=== PATIENT | male | born 1960 | race Caucasian/White ===

== ENCOUNTER 2019-01-11 08:39 | Inpatient (IN) ==
--- OUTSIDE RECORDS SUMMARY | 2019-01-11 08:42 | External Medical Summary | Continuity of Care Document ---
:1960 Author Name Jeet Matthews Address Unavailable Unavailable , Care Team Providers Name Role Phone Latonya Matthews Unavailable [email or web address] Unavailable Unavailable Problems Active medical history not documented Allergies and Adverse Reactions Allergy history not documented Medications Medications not documented Procedures Procedures not documented Immunizations Immunizations not documented Plan of Treatment Planned Observations Planned Goals not documented Results No Known Results Results not documented
[2019-01-11] MEDS ORDERED: ONDANSETRON INJ 2 MG/ML 2 ML VIAL IV STA (08:53)
[2019-01-11] MEDS ORDERED: fentaNYL citrate 100 MCG/2 ML VIAL IV PRN (08:53)
[2019-01-11] MEDS ORDERED: SODIUM CHLORIDE 0.9% 500 ML IV SCH (09:00)
[2019-01-11 09:09] LABS: Basophils # (auto) 0.08 K/uL (0-0.2); Basophils % (auto) 1.4 %; Eosinophils # (auto) 0.16 K/uL (0-0.5); Eosinophils % (auto) 2.8 %; Hematocrit (blood only) 46.2 % (42-52); Hemoglobin 16.1 g/dL (14.0-18.0); Immature Granulocytes # (auto) 0.01 K/uL (0.00-0.02); Immature Granulocytes % (auto) 0.2 %; Lymphocytes # (auto) 1.85 K/uL (1.2-3.4); Lymphocytes % (auto) 32.1 %; Mean Corpuscular Hgb Conc 34.8 g/dL (32-36); Mean Corpuscular Volume 95.7 fL (80-100); Mean Platelet Volume 10.7 fL (7.4-10.4); Monocytes # (auto) 0.32 K/uL (0.11-0.59); Monocytes % (auto) 5.6 %; Neutrophils # (auto) 3.34 K/uL (1.4-6.5); Neutrophils % (auto) 57.9 %; Platelet Count 176 K/uL (130-400); RDW Coefficient of Variation 12.9 % (11.5-14.5); RDW Standard Deviation 45.4 fL (36.4-46.3); Red Blood Count 4.83 M/uL (4.7-6.1); White Blood Count 5.76 K/uL (4.8-10.8)
--- NOTE | 2019-01-11 09:16 | Emergency Department Note ---
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 Negative: LOC, abdominal pain); no chest pain The patient is a 58 year old male who presents to the ED with complaints of an episode of a fall that happened prior to arrival. The patient reports he slipped down 5 steps and fell. He notes he has neck pain, back pain, left shoulder pain, and left hip pain. The patient states he did not lose conscious. He denies chest pain or abdominal pain. The patient reports he has history of two stents and tonsillectomy. He notes he uses alcohol, but denies tobacco use. The patient st ates he takes aspirin. Home Medications Home Medications Medication Instructions Recorded Confirmed Type aspirin 325 mg PO QAM 07/20/18 01/11/19 History cholecalciferol (vitamin D3) 1,000 unit PO QAM 07/20/18 01/11/19 History [Vitamin D3] ibuprofen 600 mg PO TID PRN 07/20/18 01/11/19 History metformin 1,000 mg PO BID 07/20/18 01/11/19 History multivitamin 1 tab PO QAM 07/20/18 01/11/19 History omega [id number]-fish oil [Fish Oil] 2 cap PO QAM 07/20/18 01/11/19 History zinc 50 mg PO QAM 07/20/18 01/11/19 History Allergies Allergy/AdvReac Type Severity Reaction Status Date / Time codeine Allergy Intermediate GI Verified 01/11/19 08:59 SYMPTOMS and tachycardia morphine Allergy Intermediate GI SYMPTOMS Verified 01/11/19 08:59 Sulfa (Sulfonamide Allergy Unknown unknown Verified 01/11/19 08:59 Antibiotics) Past Med/Surg History Family History Father Coronary heart disease Hypertension Mother Coronary heart disease Brother Diabetes Other No known problems Social History Preferred Language: Khmer Communication Ability: Effective 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 Beliefs That Will Affect Care: None marital status: Current Living Situation: Spouse current occupational status: employed Other Information That Helps Us Care for You: No Feels Safe at Home: Yes Safety Concerns: Feels Safe At This Time Smoking Status: Former smoker Tobacco Type: cigarettes ; Do You Dip or Chew Tobacco: No ; Smoking End Date: April 2018 ; Second Hand Exposure: No ; Tobacco Cessation Education Requested by Patient: No Hx Alcohol Use: Yes Alcohol type: hard liquor Alcohol type Comment: 3-4 shots 4 days a week Alcohol Intake Frequency: Daily Hx Substance Use: No Review of Systems See HPI for pertinent positives & negatives. and A total of 10 systems reviewed and were otherwise negative Physical Exam Vital Signs Vital Signs - 24 hr 01/11/19 08:41 01/11/19 08:51 01/11/19 09:29 Temperature 37.4 C Temperature Source Oral Sepsis Recent Fever Within 48 Hours No Sepsis Action Taken by Nursing No Action Required Pulse Rate 124 H 126 H 122 H Pulse Rate from SpO2 Sensor Pulse Rhythm Regular Pulse Strength Normal Respiratory Rate 21 20 23 Respiratory Effort / Characteristics Non-Labored Spontaneous Respiratory Depth Normal Respiratory Pattern Regular Blood Pressure 139/104 H 139/104 H Blood Pressure Mean 115 115 Blood Pressure Position Lying Pulse Oximetry 94 Oxygen Delivery Method Room Air 01/11/19 09:30 01/11/19 10:00 01/11/19 10:22 Temperature Temperature Source Sepsis Recent Fever Within 48 Hours Sepsis Action Taken by Nursing Pulse Rate 124 H 123 H 122 H Pulse Rate from SpO2 Sensor Pulse Rhythm Pulse Strength Respiratory Rate 25 H 22 16 Respiratory Effort / Characteristics Respiratory Depth Respiratory Pattern Blood Pressure 127/84 Blood Pressure Mean 98 Blood Pressure Position Pulse Oximetry Oxygen Delivery Method 01/11/19 10:44 01/11/19 11:00 01/11/19 11:30 Temperature Temperature Source Sepsis Recent Fever Within 48 Hours Sepsis Action Taken by Nursing Pulse Rate 124 H 123 H 123 H Pulse Rate from SpO2 Sensor 123 H 123 H Pulse Rhythm Pulse Strength Respiratory Rate 24 7 L 17 Respiratory Effort / Characteristics Respiratory Depth Respiratory Pattern Blood Pressure 128/100 140/95 Blood Pressure Mean 109 110 Blood Pressure Position Pulse Oximetry 94 92 Oxygen Delivery Method 01/11/19 11:48 01/11/19 11:50 01/11/19 11:53 Temperature Temperature Source Sepsis Recent Fever Within 48 Hours Sepsis Action Taken by Nursing Pulse Rate 123 H 122 H 121 H Pulse Rate from SpO2 Sensor 123 H 123 H 123 H Pulse Rhythm Pulse Strength Respiratory Rate 25 H 15 13 Respiratory Effort / Characteristics Respiratory Depth Respiratory Pattern Blood Pressure 144/107 H 142/93 H 111/73 Blood Pressure Mean 119 109 85 Blood Pressure Position Pulse Oximetry 93 91 91 Oxygen Delivery Method 01/11/19 11:55 01/11/19 11:58 01/11/19 12:00 Temperature Temperature Source Sepsis Recent Fever Within 48 Hours Sepsis Action Taken by Nursing Pulse Rate 123 H 126 H 124 H Pulse Rate from SpO2 Sensor 126 H 128 H 124 H Pulse Rhythm Pulse Strength Respiratory Rate 22 19 15 Respiratory Effort / Characteristics Respiratory Depth Respiratory Pattern Blood Pressure 123/95 151/98 H 122/73 Blood Pressure Mean 104 115 89 Blood Pressure Position Pulse Oximetry 93 95 94 Oxygen Delivery Method 01/11/19 12:03 01/11/19 12:05 01/11/19 12:08 Temperature Temperature Source Sepsis Recent Fever Within 48 Hours Sepsis Action Taken by Nursing Pulse Rate 123 H 124 H 125 H Pulse Rate from SpO2 Sensor 125 H 124 H 125 H Pulse Rhythm Pulse Strength Respiratory Rate 12 16 13 Respiratory Effort / Characteristics Respiratory Depth Respiratory Pattern Blood Pressure 132/95 152/99 H 135/97 Blood Pressure Mean 107 116 109 Blood Pressure Position Pulse Oximetry 97 92 90 Oxygen Delivery Method 01/11/19 12:10 01/11/19 12:15 01/11/19 12:20 Temperature Temperature Source Sepsis Recent Fever Within 48 Hours Sepsis Action Taken by Nursing Pulse Rate 124 H 122 H 126 H Pulse Rate from SpO2 Sensor 125 H 124 H 128 H Pulse Rhythm Pulse Strength Respiratory Rate 13 13 21 Respiratory Effort / Characteristics Respiratory Depth Respiratory Pattern Blood Pressure 128/96 151/89 H 134/97 Blood Pressure Mean 106 109 109 Blood Pressure Position Pulse Oximetry 89 L 94 93 Oxygen Delivery Method 01/11/19 12:25 01/11/19 12:30 01/11/19 12:35 Temperature Temperature Source Sepsis Recent Fever Within 48 Hours Sepsis Action Taken by Nursing Pulse Rate 124 H 125 H 123 H Pulse Rate from SpO2 Sensor 125 H 127 H 124 H Pulse Rhythm Pulse Strength Respiratory Rate 9 L 12 13 Respiratory Effort / Characteristics Respiratory Depth Respiratory Pattern Blood Pressure 129/88 129/87 130/87 Blood Pressure Mean 101 101 101 Blood Pressure Position Pulse Oximetry 92 92 92 Oxygen Delivery Method 01/11/19 12:40 01/11/19 12:45 01/11/19 12:50 Temperature Temperature Source Sepsis Recent Fever Within 48 Hours Sepsis Action Taken by Nursing Pulse Rate 123 H 123 H 124 H Pulse Rate from SpO2 Sensor 125 H 123 H 124 H Pulse Rhythm Pulse Strength Respiratory Rate 14 25 H 18 Respiratory Effort / Characteristics Respiratory Depth Respiratory Pattern Blood Pressure 145/103 H 142/105 H 139/99 Blood Pressure Mean 117 117 112 Blood Pressure Position Pulse Oximetry 94 94 92 Oxygen Delivery Method 01/11/19 12:55 01/11/19 12:56 01/11/19 13:00 Temperature Temperature Source Sepsis Recent Fever Within 48 Hours Sepsis Action Taken by Nursing Pulse Rate 124 H 124 H 124 H Pulse Rate from SpO2 Sensor 123 H 124 H 124 H Pulse Rhythm Pulse Strength Respiratory Rate 21 12 12 Respiratory Effort / Characteristics Respiratory Depth Respiratory Pattern Blood Pressure 134/92 135/93 135/93 Blood Pressure Mean 106 107 107 Blood Pressure Position Pulse Oximetry 93 94 94 Oxygen Delivery Method 01/11/19 13:05 01/11/19 13:10 01/11/19 13:15 Temperature Temperature Source Sepsis Recent Fever Within 48 Hours Sepsis Action Taken by Nursing Pulse Rate 124 H 124 H 124 H Pulse Rate from SpO2 Sensor 125 H 121 H 124 H Pulse Rhythm Pulse Strength Respiratory Rate 18 16 16 Respiratory Effort / Characteristics Respiratory Depth Respiratory Pattern Blood Pressure 130/94 123/88 137/98 Blood Pressure Mean 106 99 111 Blood Pressure Position Pulse Oximetry 94 92 91 Oxygen Delivery Method GENERAL: Patient is awake and alert. He is very anxious and appears to be uncomfortable. He is fully immobilized on a cervical collar and spine board. EYES: The conjunctivae are clear. The pupils are round and reactive. EARS, NOSE, MOUTH AND THROAT: The nose is without any evidence of any deformity. Mucous membranes are moist tongue is midline NECK: The neck is immobilized with rigid cervical collar. There is midline tenderness to palpation. Collar will remain in place at this time. RESPIRATORY: Normal respiratory effort is noted there is no evidence of wheezing rhonchi or rales CARDIOVASCULAR: Regular rate and rhythm noted there no murmurs rubs or gallops normal S1 normal S2 GASTROINTESTINAL: The abdomen is soft. Bowel sounds are present in all qu adrants. Abdomen is nontender BACK: Diffuse tenderness is noted over the lower thoracic and upper lumbar spine. There is no step-off. Range of motion is not tested at this time. MUSCULOSKELETAL/EXTREMITIES: Patient has pain with range of motion testing in the left shoulder but there is no deformity. Patient has pain with motion of the left hip but there is no deformity or shortening. SKIN: There is no obvious evidence of any rash. There are no petechiae, pallor or cyanosis noted. NEUROLOGIC: Patient is awake alert and oriented x3 strength is symmetric patellar reflexes are 2+ bilaterally Course 0842: The patient was evaluated in room A10. A complete history and physical exam was performed. 0950: I checked on the patient. 1144: I discussed the patient's case with Dr. Abner Phillip. He will evaluate the patient for further management. 1230: I discussed the izzyn's case with Juliette Almanza. She will evaluate the patient for further management. Consultations Consultation #1: I discussed the patient's case with Dr. Abner Phillip. He will evaluate the patient for further management. Time: 11:44 Consultation #2: I discussed the bay's case with Juliette Almanza. She will evaluate the patient for further management. Time: 12:30 Administered Medications Heparin Sodium/Dextrose (Heparin Sodium/Dextrose) 25,000 units in 500 mls @ 32 mls/hr IV .[id number] [facility]; Protocol Stop: 02/10/19 13:29 Last Admin: 01/12/19 04:00 Dose: 1,600 units/hr, 32 mls/hr Documented by: [id number] Cosigned by: [id number] Titration: 01/12/19 04:00 Dose: 1,600 units/hr, 32 mls/hr Documented by: [id number] Cosigned by: [id number] Titration: 01/12/19 04:00 Dose: 1,600 units/hr, 32 mls/hr Documented by: [id number] Cosigned by: [id number] Titration: 01/12/19 03:25 Dose: 0 units/hr, 0 mls/hr Documented by: [id number] Cosigned by: [id number] Titration: 01/11/19 20:31 Dose: 1,800 units/hr, 36 mls/hr Documented by: [id number] Cosigned by: [id number] Titration: 01/11/19 19:00 Dose: 1,600 units/hr, 32 mls/hr Documented by: [id number] Cosigned by: [id number] Admin: 01/11/19 16:00 Dose: 1,600 units/hr, 32 mls/hr Documented by: [id number] Cosigned by: [id number] Diltiazem HCl 125 mg/ Dextrose 125 mls @ 10 mls/hr IV .[id number] [facility]; Protocol Stop: 02/10/19 13:59 Last Admin: 01/12/19 00:09 Dose: 10 mg/hr, 10 mls/hr Documented by: [id number] Cosigned by: [id number] Titration: 01/12/19 00:09 Dose: 10 mg/hr, 10 mls/hr Documented by: [id number] Cosigned by: [id number] Titration: 01/11/19 21:33 Dose: 10 mg/hr, 10 mls/hr Documented by: [id number] Titration: 01/11/19 19:01 Dose: 15 mg/hr, 15 mls/hr Documented by: [id number] Cosigned by: [id number] Titration: 01/11/19 17:41 Dose: 15 mg/hr, 15 mls/hr Documented by: [id number] Titration: 01/11/19 16:32 Dose: 10 mg/hr, 10 mls/hr Documented by: [id number] Admin: 01/11/19 15:30 Dose: 5 mg/hr, 5 mls/hr Documented by: [id number] Cosigned by: [id number] Insulin Aspart (Novolog Flexpen) 0 units SC ACHS [facility] Stop: 02/10/19 16:29 Last Admin: 01/11/19 20:40 Dose: Not Given Documented by: [id number] Cosigned by: [id number] Admin: 01/11/19 17:21 Dose: 9 units Documented by: [id number] Cosigned by: [id number] Insulin Glargine (Lantus Solostar Pen) 0 units SC BID [facility] Stop: 02/10/19 20:59 Last Admin: 01/11/19 21:33 Dose: 5 units Documented by: [id number] Cosigned by: [id number] Tramadol HCl (Ultram) 50 mg PO Q4H PRN PRN Reason: Moderate Pain Stop: 02/10/19 14:43 Last Admin: 01/12/19 00:09 Dose: 50 mg Documented by: [id number] Admin: 01/11/19 17:25 Dose: 50 mg Documented by: [id number] Discontinued Medications Diltiazem HCl (Cardizem) 20 mg IV NOW STA Stop: 01/11/19 11:44 Last Admin: 01/11/19 11:47 Dose: 20 mg Documented by: [id number] Cosigned by: [id number] Fentanyl Citrate (Fentanyl Citrate) 50 mcg IV ONE PRN PRN Reason: Pain Stop: 01/25/19 08:52 Last Admin: 01/11/19 08:59 Dose: 50 mcg Documented by: [id number] Fentanyl Citrate (Fentanyl Citrate) 50 mcg IV Q15M PRN PRN Reason: Pain Stop: 01/25/19 09:20 Last Admin: 01/11/19 11:10 Dose: 50 mcg Documented by: [id number] Admin: 01/11/19 09:27 Dose: 50 mcg Documented by: [id number] Gabapentin (Neurontin) 1,200 mg PO TODAY@1500 ONE Stop: 01/11/19 15:01 Last Admin: 01/11/19 16:01 Dose: Not Given Documented by: [id number] Gabapentin (Neurontin) 600 mg PO Q6H [facility] Stop: 01/12/19 02:01 Last Admin: 01/12/19 03:21 Dose: 600 mg Documented by: [id number] Admin: 01/11/19 19:42 Dose: 600 mg Documented by: [id number] Heparin Sodium/Dextrose (Heparin Sodium/Dextrose) Confirm Administered Dose 25,000 units IV .STK-MED ONE Stop: 01/11/19 13:12 Last Admin: 01/11/19 13:15 Dose: 1,600 units Documented by: [id number] Cosigned by: [id number] Hydromorphone HCl (Dilaudid) 0.5 mg IV NOW STA Stop: 01/12/19 03:44 Last Admin: 01/12/19 03:58 Dose: 0.5 mg Documented by: [id number] Sodium Chloride (Nss) 500 mls @ 999 mls/hr IV .Q31M [facility] Stop: 01/11/19 09:30 Last Infusion: 01/11/19 10:41 Dose: 0 mls/hr Documented by: [id number] Admin: 01/11/19 09:00 Dose: 999 mls/hr Documented by: [id number] Sodium Chloride (Nss 1000ml) 1,000 mls @ 999 mls/hr IV .Q1H1M ONE Stop: 01/11/19 10:59 Last Infusion: 01/11/19 11:58 Dose: 0 mls/hr Documented by: [id number] Admin: 01/11/19 10:45 Dose: 999 mls/hr Documented by: [id number] Thiamine HCl 200 mg/ Sodium (Chloride) 52 mls @ 208 mls/hr IV NOW STA Stop: 01/11/19 10:13 Last Infusion: 01/11/19 11:05 Dose: 0 mls/hr Documented by: [id number] Admin: 01/11/19 10:45 Dose: 208 mls/hr Documented by: [id number] Heparin Sodium (Porcine) 4,000 (units/ Syringe) 4 mls @ 10 mls/min IV ONE ONE Stop: 01/11/19 20:34 Last Admin: 01/11/19 21:33 Dose: 10 mls/min Documented by: [id number] Cosigned by: [id number] Metoprolol Tartrate (Lopressor) 5 mg IV NOW STA Stop: 01/11/19 12:23 Last Admin: 01/11/19 12:35 Dose: Not Given Documented by: [id number] Metoprolol Tartrate (Lopressor) Confirm Administered Dose 5 mg IV .STK-MED ONE Stop: 01/11/19 12:24 Last Admin: 01/11/19 12:26 Dose: 5 mg Documented by: [id number] Ondansetron HCl (Zofran) 4 mg IV NOW STA Stop: 01/11/19 08:54 Last Admin: 01/11/19 08:59 Dose: 4 mg Documented by: [id number] Medical Decision Making Differential Diagnosis Differential Diagnosis Intracranial injury, cervical spine injury, intrathoracic injury, intra- abdominal injury, musculoskeletal injury. Medical Records Attestation: I reviewed the patient's medical records. Home Medications Current Medication List: was personally reviewed by me Laboratory Data Attestation: I reviewed the patient's lab results. Result diagrams: 01/12/19 02:37 01/12/19 02:37 Lab Results 01/11/19 01/11/19 01/11/19 Range/Units 08:54 08:54 08:54 WBC 5.76 (4.8-10.8) K/uL RBC 4.83 (4.7-6.1) M/uL Hgb 16.1 (14.0-18.0) g/dL Hct 46.2 (42-52) % MCV 95.7 (80-100) fL MCH 33.3 (25-34) pg MCHC 34.8 (32-36) g/dL RDW Std Deviation 45.4 (36.4-46.3) fL RDW Coeff of Mychal 12.9 (11.5-14.5) % Plt Count 176 (130-400) K/uL MPV 10.7 H (7.4-10.4) fL Immature Gran % (Auto) 0.2 % Neut % (Auto) 57.9 % Lymph % (Auto) 32.1 % Bibb % (Auto) 5.6 % Eos % (Auto) 2.8 % Baso % (Auto) 1.4 % Immature Gran # (Auto) 0.01 (0.00-0.02) K/uL Neut # (Auto) 3.34 (1.4-6.5) K/uL Lymph # (Auto) 1.85 (1.2-3.4) K/uL Bibb # (Auto) 0.32 (0.11-0.59) K/uL Eos # (Auto) 0.16 (0-0.5) K/uL Baso # (Auto) 0.08 (0-0.2) K/uL PT 10.8 (9.0-12.0) Seconds INR 1.1 (0.9-1.1) APTT (21.0-31.0) Seconds PTT Ratio Sodium 137 (136-145) mmol/L Potassium 4.1 (3.5-5.1) mmol/L Chloride 104 (98-107) mmol/L Carbon Dioxide 22 (21-32) mmol/L Anion Gap 11.0 (3-11) BUN 8 (7-18) mg/dl Creatinine 1.08 (0.6-1.4) mg/dl Est Cr Clr Drug Dosing 95.7 ml/min Est GFR ( Amer) 87.8 Est GFR (Non-Af Amer) 75.8 BUN/Creatinine Ratio 7.5 L (10-20) Glucose 259 H (70-99) mg/dl Calcium 9.3 (8.5-10.1) mg/dl Magnesium (1.8-2.4) mg/dl Total Bilirubin 0.5 (0.2-1) mg/dl AST 25 (15-37) U/L ALT 39 (12-78) U/L Alkaline Phosphatase 82 (45-117) U/L Troponin I (0-0.045) ng/ml Total Protein 7.2 (6.4-8.2) gm/dl Albumin 3.8 (3.4-5.0) gm/dl Globulin 3.4 (2.5-4.0) gm/dl Albumin/Globulin Ratio 1.1 (0.9-2) TSH (0.300-4.500) uIu/ml Ethyl Alcohol mg/dL (0-3) mg/dl 01/11/19 01/11/19 01/11/19 Range/Units 08:54 10:15 10:15 WBC (4.8-10.8) K/uL RBC (4.7-6.1) M/uL Hgb (14.0-18.0) g/dL Hct (42-52) % MCV (80-100) fL MCH (25-34) pg MCHC (32-36) g/dL RDW Std Deviation (36.4-46.3) fL RDW Coeff of Mychal (11.5-14.5) % Plt Count (130-400) K/uL MPV (7.4-10.4) fL Immature Gran % (Auto) % Neut % (Auto) % Lymph % (Auto) % Bibb % (Auto) % Eos % (Auto) % Baso % (Auto) % Immature Gran # (Auto) (0.00-0.02) K/uL Neut # (Auto) (1.4-6.5) K/uL Lymph # (Auto) (1.2-3.4) K/uL Bibb # (Auto) (0.11-0.59) K/uL Eos # (Auto) (0-0.5) K/uL Baso # (Auto) (0-0.2) K/uL PT 10.9 (9.0-12.0) Seconds INR 1.1 (0.9-1.1) APTT 23.0 (21.0-31.0) Seconds PTT Ratio 0.8 Sodium (136-145) mmol/L Potassium (3.5-5.1) mmol/L Chloride (98-107) mmol/L Carbon Dioxide (21-32) mmol/L Anion Gap (3-11) BUN (7-18) mg/dl Creatinine (0.6-1.4) mg/dl Est Cr Clr Drug Dosing ml/min Est GFR ( Amer) Est GFR (Non-Af Amer) BUN/Creatinine Ratio (10-20) Glucose (70-99) mg/dl Calcium (8.5-10.1) mg/dl Magnesium 2.1 (1.8-2.4) mg/dl Total Bilirubin (0.2-1) mg/dl AST (15-37) U/L ALT (12-78) U/L Alkaline Phosphatase (45-117) U/L Troponin I (0-0.045) ng/ml Total Protein (6.4-8.2) gm/dl Albumin (3.4-5.0) gm/dl Globulin (2.5-4.0) gm/dl Albumin/Globulin Ratio (0.9-2) TSH 2.640 (0.300-4.500) uIu/ml Ethyl Alcohol mg/dL < 3.0 (0-3) mg/dl 01/11/19 Range/Units 10:15 WBC (4.8-10.8) K/uL RBC (4.7-6.1) M/uL Hgb (14.0-18.0) g/dL Hct (42-52) % MCV (80-100) fL MCH (25-34) pg MCHC (32-36) g/dL RDW Std Deviation (36.4-46.3) fL RDW Coeff of Mychal (11.5-14.5) % Plt Count (130-400) K/uL MPV (7.4-10.4) fL Immature Gran % (Auto) % Neut % (Auto) % Lymph % (Auto) % Bibb % (Auto) % Eos % (Auto) % Baso % (Auto) % Immature Gran # (Auto) (0.00-0.02) K/uL Neut # (Auto) (1.4-6.5) K/uL Lymph # (Auto) (1.2-3.4) K/uL Bibb # (Auto) (0.11-0.59) K/uL Eos # (Auto) (0-0.5) K/uL Baso # (Auto) (0-0.2) K/uL PT (9.0-12.0) Seconds INR (0.9-1.1) APTT (21.0-31.0) Seconds PTT Ratio Sodium (136-145) mmol/L Potassium (3.5-5.1) mmol/L Chloride (98-107) mmol/L Carbon Dioxide (21-32) mmol/L Anion Gap (3-11) BUN (7-18) mg/dl Creatinine (0.6-1.4) mg/dl Est Cr Clr Drug Dosing ml/min Est GFR ( Amer) Est GFR (Non-Af Amer) BUN/Creatinine Ratio (10-20) Glucose (70-99) mg/dl Calcium (8.5-10.1) mg/dl Magnesium (1.8-2.4) mg/dl Total Bilirubin (0.2-1) mg/dl AST (15-37) U/L ALT (12-78) U/L Alkaline Phosphatase (45-117) U/L Troponin I < 0.015 (0-0.045) ng/ml Total Protein (6.4-8.2) gm/dl Albumin (3.4-5.0) gm/dl Globulin (2.5-4.0) gm/dl Albumin/Globulin Ratio (0.9-2) TSH (0.300-4.500) uIu/ml Ethyl Alcohol mg/dL (0-3) mg/dl Imaging Data Radiologist's Impression: Radiology results as stated below per my review and the radiologist's interpretation: CT SCAN OF THE CERVICAL SPINE CLINICAL HISTORY: Fall. COMPARISON STUDY: CT angiogram of the neck dated and . TECHNIQUE: CT scan of the cervical spine is performed from the skull base to the upper thoracic spine. Images are reviewed in the axial, sagittal, and coronal planes. IV contrast was not administered for this examination. A dose lowering technique was utilized adhering to the principles of ALARA. CT DOSE: 3903.17 mGy.cm FINDINGS: Skeletal structures: The skeletal structures are osteopenic. There is no evidence of fracture or subluxation involving the cervical spine. Vertebral body height and alignment are maintained. There is straightening of the cervical lordosis. Small anterior osteophytes are seen in the lower cervical region. The odontoid process and lateral masses are intact. The atlantoaxial articulation is preserved noting productive degenerative change. The spinous processes appear intact. Intervertebral discs: There is moderate disc space narrowing seen at C6-C7 and C7-T1. The remaining disc spaces appear maintained. Central canal: Posterior disc osteophyte complexes at C6-C7 and C7-T1 may contribute to mild acquired compromise the central canal. Soft tissues: The prevertebral and paraspinous soft tissues are within normal limits. There is atherosclerotic calcification of the carotid bulbs. Calvarium: The visualized calvarium at the skull base appears intact. Brain parenchyma: Partially visualized brain parenchyma the skull base is within normal limits. Sinuses and mastoids: The visualized paranasal sinuses are clear. The mastoid air cells are well pneumatized. Lung apices: Clear as visualized. IMPRESSION: There is no evidence of fracture or subluxation involving the cervical spine. Electronically signed by: Clifford Brizuela M.D. 01/11/2019 9:[address] head/brain wo con CLINICAL HISTORY: Head pain status post trauma COMPARISON STUDY: 09/04/2018 TECHNIQUE: Axial CT of the brain is performed from the vertex to the skull base. IV contrast was not administered for this examination. A dose lowering technique was utilized adhering to the principles of ALARA. CT DOSE: FINDINGS: No intra or extra-axial mass lesions are visualized. There is no CT evidence of acute cortical infarction. There is no evidence of midline shift. There is no acute hemorrhage. No calvarial fractures are visualized. There is no evidence of pathologic ventricular dilatation. There are persistent inflammatory changes within the left maxillary sinus. IMPRESSION: No acute intracranial findings Electronically signed by: Felix Zurita M.D. 01/11/2019 9:[address] SCAN OF THE LUMBAR SPINE WITHOUT IV CONTRAST CLINICAL HISTORY: Fall. Low back pain. COMPARISON STUDY: No priors. TECHNIQUE: CT scan of the lumbar spine is performed from the lower thoracic spine to the sacrum. Images are reviewed in the axial, sagittal, and coronal planes. IV contrast was not administered for this examination. A dose lowering technique was utilized adhering to the principles of ALARA. FINDINGS: The skeletal structures are osteopenic. There is no evidence of fracture or malalignment involving the lumbar spine. Vertebral body height is maintained throughout the lumbar spine. There are bilateral pars defects at L5 with 6 mm of anterolisthesis at L5-S1. Alignment is otherwise preserved. Small anterior and lateral marginal osteophytes are seen throughout. No lytic or b lastic lesion is seen. The transverse and spinous processes are intact. There is moderate to advanced disc space narrowing seen from L3 -L4 through L5-S1 with associated vacuum phenomenon and degenerative endplate sclerosis. Small posterior disc osteophyte complexes are seen at these levels. There is no evidence of large disc herniation or high-grade central canal stenosis by CT. Mild facet arthropathy is noted in the lower lumbar region. The visualized sacrum and bony pelvis appear intact. The paraspinous soft tissues are normal in appearance. Mild to moderate atherosclerotic calcification is noted in the abdominal aorta. IMPRESSION: 1. There is no evidence of fracture or malalignment involving the lumbar spine. 2. There are bilateral pars defects at L5 with minimal anterolisthesis at L5-S1. Electronically signed by: Clifford Brizuela M.D. 01/11/2019 9:[address] thoracic spine wo con CT DOSE: HISTORY: Trauma. Pain. fall TECHNIQUE: Multiaxial CT images of the thoracic spine were performed and reformatted in the sagittal and coronal plane without the use of contrast. A dose lowering technique was utilized adhering to the principles of ALARA. COMPARISON: None. FINDINGS: No fractures. No subluxation. Paraspinal soft tissues are un remarkable. Moderate generalized degenerative disc changes throughout. Degenerative change vertebral endplates. IMPRESSION: 1. No acute bony abnormality. 2. Moderate degenerative disc change. The above report was generated using voice recognition software. It may contain grammatical, syntax or spelling errors. Electronically signed by: Shaun Valdovinos M.D. 01/11/2019 9:40 AM SINGLE VIEW PELVIS; 2 VIEWS LEFT HIP CLINICAL HISTORY: Fall with left hip pain. FINDINGS: 2 AP views the pelvis with AP and frog-leg views of the left hip are obtained. No prior studies are available for comparison at the time of dictation. The skeletal structures are well mineralized for age. There is no radiographic evidence of acute fracture involving the hips or bony pelvis. Mild degenerative joint space narrowing is seen in the hips. There is mild degenerati ve sclerosis of the sacroiliac joints. Enthesophytes arise from the anterior superior iliac spines. The overlying soft tissues are normal in appearance. Phleboliths are observed in the pelvis. There is no bowel obstruction. Lumbosacral spondylosis is partially visualized. IMPRESSION: No acute bony abnormality is identified. Electronically signed by: Clifford Brizuela M.D. 01/11/2019 10:56 AM XR shoulder LT min 2V routine CLINICAL HISTORY: fall trauma. Pain. COMPARISON: None. DISCUSSION: Moderate generalized degenerative change. No evidence for fracture or dislocation. There is no evidence for soft tissue swelling. IMPRESSION: Moderate generalized degenerative change. No acute process. The above report was generated using voice recognition software. It may contain grammatical, syntax or spelling errors. Electronically signed by: Shaun Valdovinos M.D. 01/11/2019 10:44 AM XR chest 1V not portable CLINICAL HISTORY: Chest pain status post trauma COMPARISON STUDY: 05/19/2019 FINDINGS: The heart is enlarged. There is mild pulmonary venous hypertension. There is no lobar consolidation. There are no pleural effusions. There is no pneumothorax.[ IMPRESSION: Cardiomegaly and mild pulmonary venous hypertension. No evidence of focal pulmonary consolidation. No evidence of pneumothorax Electronically signed by: Felix Zurita M.D. 01/11/2019 10:55 AM ECG Data Attestation: I personally reviewed and interpreted this ECG as follows: Indication: other (trauma ) Rate (beats per minute): 123 Rhythm: atrial flutter Findings: no ST depression, no ST elevation and no ectopy Comparison ECG Date: from (09/04/18) Change: the following changes noted (Atrial flutter ) Additional Comments: Repeat ECG: Atrial flutter at 122 beats per minute. No PVC noted. No change from earlier tracing Blood Pressure Blood Pressure Findings: Normal blood pressure MDM Narrative The patient is a 58-year-old male who presented to the emergency department for an evaluation after fall. The patient was at work when he fell down approximately 5 stairs striking his head and injured his neck. The patient had no focal neurologic deficits. He was treated with IV fluids and IV pain medication in the emergency department. He was also found to be in rapid atrial flutter. This was treated with Cardizem as well as beta-blockers. I discussed his case with the on-call [facility] judge. He was evaluated in the emergency department by the judge. His heart rate improved minimally. I discussed patient's laboratory and radiographic studies with him. Because of the persistence of the atrial flutter as well as the patient not having any current anticoagulation or rate control medication I did discuss his case with the on-call [facility] hospitalist. They have agreed to evaluate the patient in the emergency department for further management disposition. Impression & Plan Atrial flutter with rapid ventricular response, Fall, Head injury, Cervical sprain, Contusion of left hip Critical Care Time Critical Care Time: Yes Total Critical Care Time: 35 I have personally spent greater than 35 minutes of critical care time in the direct management of this patient. This includes bedside care, interpretation of diagnostic studies, and testing, discussion with consultants, patient, and family members, and other required patient management activities. This 35 minutes is in excess of all separately billable procedures. Discharge Plan Visit Data *Final* Discharge Date/Time: 01/11/19 13:47 Chief Complaint: Fall Stated Complaint: back, head, neck pain ED Provider: Mahad Peters Discharge Problem: Atrial flutter with rapid ventricular response, Fall, Head injury, Cervical sprain, Contusion of left hip Patient Disposition: Admitted As Inpatient Discharge Instructions Interventions: ED Discharge Assessment Last Done: 01/11/19 13:47 Discharge Problem: Fall Qualifiers: Encounter type: initial encounter Qualified Code(s): W19.XXXA - Unspecified fall, initial encounter Head injury Qualifiers: Encounter type: initial encounter Qualified Code(s): S09.90XA - Unspecified injury of head, initial encounter Cervical sprain Qualifiers: Encounter type: initial encounter Qualified Code(s): S13.9XXA - Sprain of joints and ligaments of unspecified parts of neck, initial encounter Contusion of left hip Qualifiers: Encounter type: initial encounter Qualified Code(s): S70.02XA - Contusion of left hip, initial encounter The scribe's documentation has been prepared under my direction and personally reviewed by me in its entirety. I confirm that the note above accurately reflects all work, treatment, procedures, and medical decision making performed by me.
[2019-01-11 09:18] LABS: INR 1.1 (0.9-1.1); Prothrombin Time 10.8 Seconds (9.0-12.0)
[2019-01-11] MEDS: fentaNYL citrate 100 MCG/2 ML VIAL IV PRN ×2 (09:27→11:10)
[2019-01-11 09:28] LABS: Albumin Level 3.8 gm/dl (3.4-5.0); BUN Creatinine Ratio 7.5 (10-20); Calcium 9.3 mg/dl (8.5-10.1); Creatinine Clr Calc Pharmacy 95.7 ml/min; Est GFR (African American) 87.8; Est GFR (Non-African American) 75.8; Potassium 4.1 mmol/L (3.5-5.1)
[2019-01-11 09:31] LABS: Albumin Globulin Ratio 1.1 (0.9-2); Bilirubin,Total 0.5 mg/dl (0.2-1); Globulin 3.4 gm/dl (2.5-4.0); Total Protein 7.2 gm/dl (6.4-8.2)
--- NOTE | 2019-01-11 09:37 | CT Scan Report ---
CT head/brain wo con CLINICAL HISTORY: Head pain status post trauma COMPARISON STUDY: 09/04/2018 TECHNIQUE: Axial CT of the brain is performed from the vertex to the skull base. IV contrast was not administered for this examination. A dose lowering technique was utilized adhering to the principles of ALARA. CT DOSE: FINDINGS: No intra or extra-axial mass lesions are visualized. There is no CT evidence of acute cortical infarc tion. There is no evidence of midline shift. There is no acute hemorrhage. No calvarial fractures ar e visualized. There is no evidence of pathologic ventricular dilatation. There are persistent inflammatory changes within the left maxillary sinus. IMPRESSION: No acute intracranial findings Electronically signed by: Felix Zurita M.D. 01/11/2019 9:36 AM
--- NOTE | 2019-01-11 09:37 | CT Scan Report ---
CT SCAN OF THE CERVICAL SPINE CLINICAL HISTORY: Fall. COMPARISON STUDY: CT angiogram of the neck dated 218 and 19. TECHNIQUE: CT scan of the cervical spine is performed from the skull base to the upper thoracic spine . Images are reviewed in the axial, sagittal, and coronal planes. IV contrast was not administered fo r this examination. A dose lowering technique was utilized adhering to the principles of ALARA. CT DOSE: 3903.17 mGy.cm FINDINGS: Skeletal structures: The skeletal structures are osteopenic. There is no evidence of fracture or subl uxation involving the cervical spine. Vertebral body height and alignment are maintained. There is st raightening of the cervical lordosis. Small anterior osteophytes are seen in the lower cervical regio n. The odontoid process and lateral masses are intact. The atlantoaxial articulation is preserved not ing productive degenerative change. The spinous processes appear intact. Intervertebral discs: There is moderate disc space narrowing seen at C6-C7 and C7-T1. The remaining d isc spaces appear maintained. Central canal: Posterior disc osteophyte complexes at C6-C7 and C7-T1 may contribute to mild acquired compromise the central canal. Soft tissues: The prevertebral and paraspinous soft tissues are within normal limits. There is athero sclerotic calcification of the carotid bulbs. Calvarium: The visualized calvarium at the skull base appears intact. Brain parenchyma: Partially visualized brain parenchyma the skull base is within normal limits. Sinuses and mastoids: The visualized paranasal sinuses are clear. The mastoid air cells are well pneu matized. Lung apices: Clear as visualized. IMPRESSION: There is no evidence of fracture or subluxation involving the cervical spine. Electronically signed by: Clifford Brizuela M.D. 01/11/2019 9:36 AM
--- NOTE | 2019-01-11 09:41 | CT Scan Report ---
CT thoracic spine wo con CT DOSE: HISTORY: Trauma. Pain. fall TECHNIQUE: Multiaxial CT images of the thoracic spine were performed and reformatted in the sagittal and coronal plane without the use of contrast. A dose lowering technique was utilized adhering to th e principles of ALARA. COMPARISON: None. FINDINGS: No fractures. No subluxation. Paraspinal soft tissues are unremarkable. Moderate generalize d degenerative disc changes throughout. Degenerative change vertebral endplates. IMPRESSION: 1. No acute bony abnormality. 2. Moderate degenerative disc change. The above report was generated using voice recognition software. It may contain grammatical, syntax or spelling errors. Electronically signed by: Shaun Valdovinos M.D. 01/11/2019 9:40 AM
--- NOTE | 2019-01-11 09:42 | CT Scan Report ---
CT SCAN OF THE LUMBAR SPINE WITHOUT IV CONTRAST CLINICAL HISTORY: Fall. Low back pain. COMPARISON STUDY: No priors. TECHNIQUE: CT scan of the lumbar spine is performed from the lower thoracic spine to the sacrum. Nichol ges are reviewed in the axial, sagittal, and coronal planes. IV contrast was not administered for thi s examination. A dose lowering technique was utilized adhering to the principles of ALARA. FINDINGS: The skeletal structures are osteopenic. There is no evidence of fracture or malalignment in volving the lumbar spine. Vertebral body height is maintained throughout the lumbar spine. There are bilateral pars defects at L5 with 6 mm of anterolisthesis at L5-S1. Alignment is otherwise preserved. Small anterior and lateral marginal osteophytes are seen throughout. No lytic or blastic lesion is s een. The transverse and spinous processes are intact. There is moderate to advanced disc space narrow ing seen from L3 -L4 through L5-S1 with associated vacuum phenomenon and degenerative endplate sclero sis. Small posterior disc osteophyte complexes are seen at these levels. There is no evidence of larg e disc herniation or high-grade central canal stenosis by CT. Mild facet arthropathy is noted in the lower lumbar region. The visualized sacrum and bony pelvis appear intact. The paraspinous soft tissue s are normal in appearance. Mild to moderate atherosclerotic calcification is noted in the abdominal aorta. IMPRESSION: 1. There is no evidence of fracture or malalignment involving the lumbar spine. 2. There are bilateral pars defects at L5 with minimal anterolisthesis at L5-S1. Electronically signed by: Clifford Brizuela M.D. 01/11/2019 9:41 AM
[2019-01-11] MEDS ORDERED: THIAMINE HCL 200 MG in SODIUM CHLORIDE 0.9% 50 ML IV STA (09:59)
[2019-01-11] MEDS ORDERED: SODIUM CHLORIDE 0.9% 1000ML 1,000 ML IV ONE (09:59)
[2019-01-11 10:37] LABS: Magnesium 2.1 mg/dl (1.8-2.4)
--- NOTE | 2019-01-11 10:45 | XRay Report ---
XR shoulder LT min 2V routine CLINICAL HISTORY: fall trauma. Pain. COMPARISON: None. DISCUSSION: Moderate generalized degenerative change. No evidence for fracture or dislocation. There is no evidence for soft tissue swelling. IMPRESSION: Moderate generalized degenerative change. No acute process. The above report was generated using voice recognition software. It may contain grammatical, syntax or spelling errors. Electronically signed by: Shaun Valdovinos M.D. 01/11/2019 10:44 AM
[2019-01-11 10:47] LABS: INR 1.1 (0.9-1.1); Partial Thromboplastin Ratio 0.8; Prothrombin Time 10.9 Seconds (9.0-12.0)
--- NOTE | 2019-01-11 10:56 | XRay Report ---
XR chest 1V not portable CLINICAL HISTORY: Chest pain status post trauma COMPARISON STUDY: 05/19/2019 FINDINGS: The heart is enlarged. There is mild pulmonary venous hypertension. There is no lobar conso lidation. There are no pleural effusions. There is no pneumothorax.[ IMPRESSION: Cardiomegaly and mild pulmonary venous hypertension. No evidence of focal pulmonary conso lidation. No evidence of pneumothorax Electronically signed by: Felix Zurita M.D. 01/11/2019 10:55 AM
--- NOTE | 2019-01-11 10:57 | XRay Report ---
SINGLE VIEW PELVIS; 2 VIEWS LEFT HIP CLINICAL HISTORY: Fall with left hip pain. FINDINGS: 2 AP views the pelvis with AP and frog-leg views of the left hip are obtained. No prior marichuy dies are available for comparison at the time of dictation. The skeletal structures are well minerali zed for age. There is no radiographic evidence of acute fracture involving the hips or bony pelvis. M ild degenerative joint space narrowing is seen in the hips. There is mild degenerative sclerosis of t he sacroiliac joints. Enthesophytes arise from the anterior superior iliac spines. The overlying soft tissues are normal in appearance. Phleboliths are observed in the pelvis. There is no bowel obstruct ion. Lumbosacral spondylosis is partially visualized. IMPRESSION: No acute bony abnormality is identified. Electronically signed by: Clifford Brizuela M.D. 01/11/2019 10:56 AM
[2019-01-11] MEDS ORDERED: dilTIAZem HCl 5 MG/ML 5 ML VIAL IV STA (11:43)
[2019-01-11] MEDS ORDERED: METOPROLOL TARTRATE 1 MG/ML VIAL IV STA (12:22)
[2019-01-11] MEDS ORDERED: METOPROLOL TARTRATE 1 MG/ML VIAL IV ONE (12:23)
--- NOTE | 2019-01-11 12:42 | Cardiology Consultation ---
Date of Consultation January 11, 2019 Assessment & Plan (1) Atrial flutter: (2) Accident due to mechanical fall without injury: The patient should be admitted to the hospital. He has received diltiazem without adequate rate control and I will give him an extra dose of Lopressor 5 mg IV now. He should have cardiac troponins and an echocardiogram. His Velasquez vas score is 3 indicating the need for anticoagulation. His head CT was negative. I would start him on IV heparin without a bolus. We will follow along with you during his hospital stay. History of Present Illness History of Present Illness This is a 58-year-old male patient who had a mechanical fall on steps at work. He contused his left leg and hip. He also hit the front of his head. There are no fractures by x-ray. His CT of the head was negative for any acute injury or bleeding. After arrival in the emergency department, he is noted to be in a narrow complex tachycardia most likely atrial flutter or atrial fibrillation. He is completely asymptomatic in regard to this arrhythmia. He has had no recent episodes of dizziness, lightheadedness, presyncope or syncope. He has had no unusual shortness of breath or chest pain. No heart palpitations or tachycardia. The patient has a history of ischemic heart disease and in 2003 and 2004 received coronary stents. Around that time, the patient states he also had atrial arrhythmias and did undergo cardioversion and was on anticoagulation for short period of time. He was seeing Dr. Carl through our clinic, but has not seen him since 2011. His heart disease has been stable. Past medical history is as outlined below. Past medical history: 1.Atherosclerotic coronary disease s/p acute inferior myocardial infarction September 2003 with primary PTCA of the right coronary artery. 2.Recurrent ischemia May 2005 with acute V-fib arrest with acute PCI of the left circumflex. 3.Paroxysmal atrial flutter s/p elective cardioversion January 2010 and April 2011. 4.Hyperlipidemia. 5.Diabetes mellitus. 6.Chronic tobacco use. Allergies Allergy/AdvReac Type Severity Reaction Status Date / Time codeine Allergy Intermediate GI Verified 01/11/19 08:59 SYMPTOMS and tachycardia morphine Allergy Intermediate GI SYMPTOMS Verified 01/11/19 08:59 Sulfa (Sulfonamide Allergy Unknown unknown Verified 01/11/19 08:59 Antibiotics) Home Medications Home Medications Medication Instructions Recorded Confirmed Type aspirin 325 mg PO QAM 07/20/18 01/11/19 History cholecalciferol (vitamin D3) 1,000 unit PO QAM 07/20/18 01/11/19 History [Vitamin D3] ibuprofen 600 mg PO TID PRN 07/20/18 01/11/19 History metformin 1,000 mg PO BID 07/20/18 01/11/19 History multivitamin 1 tab PO QAM 07/20/18 01/11/19 History omega 3-gwh-eat-fish oil [Fish Oil] 2 cap PO QAM 07/20/18 01/11/19 History zinc 50 mg PO QAM 07/20/18 01/11/19 History Patient History Family History Father Coronary heart disease Hypertension Mother Coronary heart disease Brother Diabetes Other No known problems Social History Preferred Language: Thai Communication Ability: Effective Technology Risk Intern Required: No Beliefs That Will Affect Care: None marital status: Current Living Situation: Spouse current occupational status: employed Other Information That Helps Us Care for You: No Feels Safe at Home: Yes Safety Concerns: Feels Safe At This Time Smoking Status: Former smoker Tobacco Type: cigarettes ; Do You Dip or Chew Tobacco: No ; Smoking End Date: April 2018 ; Second Hand Exposure: No ; Tobacco Cessation Education Requested by Patient: No Hx Alcohol Use: Yes Alcohol type: hard liquor Alcohol type Comment: 3-4 shots 4 days a week Alcohol Intake Frequency: Daily Hx Substance Use: No Review of Systems Review of Systems: All systems reviewed & are unremarkable except as noted in HPI & below Nothing additional to add other than the history of chief complaint. Physical Exam Physical Exam: General: no acute distress and stated age Head: normocephalic, no masses, lesions, tenderness or abnormalities Eyes: conjunctiva are pink and non-injected, sclera clear Neck: supple, no adenopathy, no bruits, normal jugular venous pulse, no hepatojugular reflux Chest: normal shape and normal respiratory effort Lungs: clear to auscultation and percussion Cardiac Exam: - irregular rate & rhythm, no murmurs gallops or rubs - normal S1, normal S2 Pulses: 2(+) throughout Abdomen: abdomen soft, non-tender, no abnormal masses and no hepatosplenomegaly Musculoskeletal: no gait disturbance, no joint inflammation, no deforming arthritis Extremities: no edema and no cyanosis Neuro: grossly normal exam Results & Data Vital Signs (Past 12 Hours) Vital Signs Temp Pulse Resp BP Pulse Ox 01/11/19 11:00 123 H 7 L 140/95 94 01/11/19 10:44 124 H 24 128/100 01/11/19 10:22 122 H 16 127/84 01/11/19 10:00 123 H 22 01/11/19 09:30 124 H 25 H 01/11/19 09:29 122 H 23 01/11/19 08:51 37.4 C 126 H 20 139/104 H 94 01/11/19 08:41 124 H 21 139/104 H Laboratory Results Laboratory Results - last 24 hr 01/11/19 01/11/19 01/11/19 08:54 08:54 08:54 WBC 5.76 RBC 4.83 Hgb 16.1 Hct 46.2 MCV 95.7 MCH 33.3 MCHC 34.8 RDW Std Deviation 45.4 RDW Coeff of Mychal 12.9 Plt Count 176 MPV 10.7 H Immature Gran % (Auto) 0.2 Neut % (Auto) 57.9 Lymph % (Auto) 32.1 Cecil % (Auto) 5.6 Eos % (Auto) 2.8 Baso % (Auto) 1.4 Immature Gran # (Auto) 0.01 Neut # (Auto) 3.34 Lymph # (Auto) 1.85 Cecil # (Auto) 0.32 Eos # (Auto) 0.16 Baso # (Auto) 0.08 PT 10.8 INR 1.1 APTT PTT Ratio Sodium 137 Potassium 4.1 Chloride 104 Carbon Dioxide 22 Anion Gap 11.0 BUN 8 Creatinine 1.08 Est Cr Clr Drug Dosing 95.7 Est GFR ( Amer) 87.8 Est GFR (Non-Af Amer) 75.8 BUN/Creatinine Ratio 7.5 L Glucose 259 H Calcium 9.3 Magnesium Total Bilirubin 0.5 AST 25 ALT 39 Alkaline Phosphatase 82 Troponin I Total Protein 7.2 Albumin 3.8 Globulin 3.4 Albumin/Globulin Ratio 1.1 TSH Ethyl Alcohol mg/dL 01/11/19 01/11/19 01/11/19 08:54 10:15 10:15 WBC RBC Hgb Hct MCV MCH MCHC RDW Std Deviation RDW Coeff of Mychal Plt Count MPV Immature Gran % (Auto) Neut % (Auto) Lymph % (Auto) Cecil % (Auto) Eos % (Auto) Baso % (Auto) Immature Gran # (Auto) Neut # (Auto) Lymph # (Auto) Cecil # (Auto) Eos # (Auto) Baso # (Auto) PT 10.9 INR 1.1 APTT 23.0 PTT Ratio 0.8 Sodium Potassium Chloride Carbon Dioxide Anion Gap BUN Creatinine Est Cr Clr Drug Dosing Est GFR ( Amer) Est GFR (Non-Af Amer) BUN/Creatinine Ratio Glucose Calcium Magnesium 2.1 Total Bilirubin AST ALT Alkaline Phosphatase Troponin I Total Protein Albumin Globulin Albumin/Globulin Ratio TSH 2.640 Ethyl Alcohol mg/dL < 3.0 01/11/19 10:15 WBC RBC Hgb Hct MCV MCH MCHC RDW Std Deviation RDW Coeff of Mychal Plt Count MPV Immature Gran % (Auto) Neut % (Auto) Lymph % (Auto) Cecil % (Auto) Eos % (Auto) Baso % (Auto) Immature Gran # (Auto) Neut # (Auto) Lymph # (Auto) Cecil # (Auto) Eos # (Auto) Baso # (Auto) PT INR APTT PTT Ratio Sodium Potassium Chloride Carbon Dioxide Anion Gap BUN Creatinine Est Cr Clr Drug Dosing Est GFR ( Amer) Est GFR (Non-Af Amer) BUN/Creatinine Ratio Glucose Calcium Magnesium Total Bilirubin AST ALT Alkaline Phosphatase Troponin I < 0.015 Total Protein Albumin Globulin Albumin/Globulin Ratio TSH Ethyl Alcohol mg/dL Medications Administered Current Inpatient Medications Fentanyl Citrate (Fentanyl Citrate) 50 mcg IV ONE PRN PRN Reason: Pain Stop: 01/25/19 08:52 Last Admin: 01/11/19 08:59 Dose: 50 mcg Documented by: Fentanyl Citrate (Fentanyl Citrate) 50 mcg IV Q15M PRN PRN Reason: Pain Stop: 01/25/19 09:20 Last Admin: 01/11/19 11:10 Dose: 50 mcg Documented by:
[2019-01-11] MEDS ORDERED: Heparin IV Standard *NO* Bolus ONE (12:43)
[2019-01-11] MEDS ORDERED: HEPARIN 25000 UNIT/500 ML D5W IV ONE (13:11)
[2019-01-11] MEDS ORDERED: LORazepam 1 MG TAB PO PRN (14:44)
[2019-01-11] MEDS ORDERED: HEPARIN SODIUM/DEXTROSE 25,000 UNITS/500 ML BAG IV SCH (14:44)
[2019-01-11] MEDS ORDERED: DEXTROSE 50% 50 ML SYRINGE IV PRN (14:44)
[2019-01-11] MEDS ORDERED: GLUCAGON FOR INJ 1 MG VIAL SQ PRN (14:44)
[2019-01-11] MEDS ORDERED: GLUCOSE 40% GEL 15 GM TUBE PO PRN (14:44)
[2019-01-11] MEDS ORDERED: GLUCOSE 10 TABS/TUBE PO PRN (14:44)
[2019-01-11] MEDS ORDERED: ALUMINUM/MAGNESIUM SUSP 30 ML UDC PO PRN (14:44)
[2019-01-11] MEDS ORDERED: Heparin IV Standard *NO* Bolus IV ONE (14:44)
[2019-01-11] MEDS ORDERED: MAGNESIUM HYDROXIDE SUSP 30 ML UDC PO PRN (14:44)
[2019-01-11] MEDS ORDERED: ACETAMINOPHEN 325 MG TAB PO PRN (14:44)
[2019-01-11] MEDS ORDERED: GABAPENTIN 1200MG ALCOHOL WITHDRAWAL LOAD PO STA (14:44)
[2019-01-11] MEDS ORDERED: POLYETHYLENE (MIRALAX) 17 GM PACK PO PRN (14:44)
[2019-01-11] MEDS ORDERED: CARBOHYDRATES FOR HYPOGLYCEMIA PO PRN (14:44)
[2019-01-11] MEDS ORDERED: NITROGLYCERIN SL 0.4 MG/TAB TAB SL PRN (14:44)
[2019-01-11] MEDS ORDERED: GABAPENTIN 600 MG TAB PO ONE (15:00)
[2019-01-11] MEDS: dilTIAZem HCl 125 MG in DEXTROSE 5% 100 ML IV SCH (15:30)
--- NOTE | 2019-01-11 15:34 | History & Physical Report ---
Date of Service January 11, 2019 Assessment & Plan (1) Atrial flutter with rapid ventricular response: This is a 58-year-old male who has a significant past medical history of CAD history of PTCA to RCA 05/05 and PTCA to left circumflex 05/06, history of paroxysmal atrial flutter status post cardioversion 01/2010 and 04/2011, T2DM, hyperlipidemia, history of tobacco abuse, alcohol abuse who presents to [facility] ED after sustaining mechanical fall while at work. Found to be in atrial flutter with RVR in ED hx of PAF in past requiring cardioversion and anticoagulation Currently he is asymptomatic CBC, CMP, TSH relatively unremarkable Seen and evaluated by Dr. Levine in ED HR maintaining 120s despite 20mg IV diltiazem and Lopressor 5mg IV Admit to telemetry Chadsvasc 3- IV heparin initiated Diltiazem drip ordered Cycle troponin Obtain echocardiogram Daily ECG (2) Fall: Pt suffered a mechanical fall while at work falling down 5 steps, landing on bottom and falling head/face first into wall He underwent trauma series of scans including cervical, lumbar, thoracic CT along with a pelvis x-ray shoulder x-ray. No acute fracture or dislocations noted. Cervically he did have disc space narrowing C6-7 and C7-T1 with posterior disc osteophyte causing mild canal comprise along. Lumbar CT significant for b/l pars defect L5 minimal anterolisthesis L5-S1. conservative tx with ice, rest, analgesia APAP, tramadol prn for pain control once stable from atrial flutter standpoint recommend obtaining PT/OT consult (3) Cervical sprain: supportive care rest, ice prn analgesia if no improvement consider muscle relaxer (4) Contusion of left hip: as above (5) CAD (coronary artery disease): hx of Stent x 2 (RCA 04' and L circumflex 05') no chest pain, sob troponin WNL cycle troponin, obtain echo will reduce ASA to 81mg daily in setting of heparin (6) T2DM (type 2 diabetes mellitus): Last A1C 7.4 09/18 hold metformin lantus/novolog per protocol (7) HTN (hypertension): blood pressure labile on admission not on any oral antihypertensives monitor, likely elevated in setting of pain (8) Alcohol abuse: pt admits to drinking 3-4 shots of kellen Guido 4 x a week (per epic it says 6-7 shots daily) received IV thiamine in ED, ETOH negative AWSS protocol initiated with gabapentin taper lorazepam prn monitor for s/sx of withdrawal (9) DVT prophylaxis: On Heparin Gtt Disposition: d/c to home when able Follow up: PCP Dr. Wood upon discharge Patient was seen and examined in collaboration with Dr. Saleh, please see addendum History of Present Illness Chief Complaint: mechanical fall while at work Primary Care Provider: Ajit Wood, DO This is a 58-year-old male who has a significant past medical history of CAD history of PTCA to RCA 05/05 and PTCA to left circumflex 05/06, history of paroxysmal atrial flutter status post cardioversion 01/2010 and 04/2011, T2DM, hyperlipidemia, history of tobacco abuse, alcohol abuse who presents to [facility] ED after sustaining mechanical fall while at work. Patient was walking down the steps when he slipped, fell on bottom and fell down additional 5 steps hitting head and face into a wall. Was unable to get up on his own secondary to significant neck, back and left leg pain. Therefore he presented to ED. Upon presentation patient was found to be in atrial flutter with RVR, although asymptomatic. All of his complaints were secondary to pain from fall. While in ED he received 20 mg IV Cardizem without relief along with additional metoprolol 5 mg IV with no reduction in rate. He was seen and evaluated by Dr. Levine, cardiology and initiated on IV heparin drip given chadsvasc 3. He underwent trauma series of scans including cervical, lumbar, thoracic CT along with a pelvis x-ray shoulder x-ray. No acute fracture or dislocations noted. Cervically he did have disc space narrowing C6-7 and C7-T1 with posterior disc osteophyte causing mild canal comprise along. Lumbar CT significant for b/l pars defect L5 minimal anterolisthesis L5-S1. He currently denies any f/c/s, recent illness, dizziness, lightheaded, syncope, BALLARD, change in vision/hearing, chest pain, palpitations, sob, camacho, n/v/d, abdominal pain, change in bowel or urinary habits. Complains of neck stiffness, pain in mid/low back with radiation to L leg through knee and numbness. Allergies Allergy/AdvReac Type Severity Reaction Status Date / Time codeine Allergy Intermediate GI Verified 01/11/19 08:59 SYMPTOMS and tachycardia morphine Allergy Intermediate GI SYMPTOMS Verified 01/11/19 08:59 Sulfa (Sulfonamide Allergy Unknown unknown Verified 01/11/19 08:59 Antibiotics) Home Medications Home Medications Medication Instructions Recorded Confirmed Type aspirin 325 mg PO QAM 07/20/18 01/11/19 History cholecalciferol (vitamin D3) 1,000 unit PO QAM 07/20/18 01/11/19 History [Vitamin D3] ibuprofen 600 mg PO TID PRN 07/20/18 01/11/19 History metformin 1,000 mg PO BID 07/20/18 01/11/19 History multivitamin 1 tab PO QAM 07/20/18 01/11/19 History omega 4-ouh-csu-fish oil [Fish Oil] 2 cap PO QAM 07/20/18 01/11/19 History zinc 50 mg PO QAM 07/20/18 01/11/19 History Past Med/Surg History Family History Father Coronary heart disease Hypertension Mother Coronary heart disease Brother Diabetes Other No known problems Social History Preferred Language: Slovenian Communication 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 Beliefs That Will Affect Care: None marital status: Current Living Situation: Spouse current occupational status: employed Other Information That Helps Us Care for You: No Feels Safe at Home: Yes Safety Concerns: Feels Safe At This Time Smoking Status: Former smoker Tobacco Type: cigarettes ; Do You Dip or Chew Tobacco: No ; Smoking End Date: April 2018 ; Second Hand Exposure: No ; Tobacco Cessation Education Requested by Patient: No Hx Alcohol Use: Yes Alcohol type: hard liquor Alcohol type Comment: 3-4 shots 4 days a week Alcohol Intake Frequency: Daily Hx Substance Use: No Review of Systems Review of Systems: As noted per HPI, 10 systems reviewed and negative unless noted above. Physical Exam Physical Exam: Gen: WD/WN, M, in pain, NAD, lying in bed, pleasant, conversing easily Head: Normocephalic, Atraumatic Eyes: Sclera normal, no conjunctival injection, PERRLA, EOMI ENT: Gross hearing intact, normal pharynx, mucous membranes moist Neck: supple, no adenopathy, No JVD, no bruit, Resp: Clear to auscultation b/l, no wheeze, rales, rhonchi. 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 Extremities: No edema bilaterally Skin: warm, moist, no rash, negative turgor, cap refill < 2sec Neuro: Alert and oriented x 3, speech normal, good mood/affect, cran nerve 2-12 intact grossly : deferred Results & Data Vital Signs (Past 12 Hours) Vital Signs Temp Pulse Pulse Resp BP BP Pulse Ox 01/11/19 14:25 36.6 C 124 H 18 141/95 H 94 01/11/19 13:30 123 H 15 93 01/11/19 13:15 124 H 16 137/98 91 01/11/19 13:10 124 H 16 123/88 92 01/11/19 13:05 124 H 18 130/94 94 01/11/19 13:00 124 H 12 135/93 94 01/11/19 12:56 124 H 12 135/93 94 01/11/19 12:55 124 H 21 134/92 93 01/11/19 12:50 124 H 18 139/99 92 01/11/19 12:45 123 H 25 H 142/105 H 94 01/11/19 12:40 123 H 14 145/103 H 94 01/11/19 12:35 123 H 13 130/87 92 01/11/19 12:30 125 H 12 129/87 92 01/11/19 12:25 124 H 9 L 129/88 92 01/11/19 12:20 126 H 21 134/97 93 01/11/19 12:15 122 H 13 151/89 H 94 01/11/19 12:10 124 H 13 128/96 89 L 01/11/19 12:08 125 H 13 135/97 90 01/11/19 12:05 124 H 16 152/99 H 92 01/11/19 12:03 123 H 12 132/95 97 01/11/19 12:00 124 H 15 122/73 94 01/11/19 11:58 126 H 19 151/98 H 95 01/11/19 11:55 123 H 22 123/95 93 01/11/19 11:53 121 H 13 111/73 91 01/11/19 11:50 122 H 15 142/93 H 91 01/11/19 11:48 123 H 25 H 144/107 H 93 01/11/19 11:30 123 H 17 92 01/11/19 11:00 123 H 7 L 140/95 94 01/11/19 10:44 124 H 24 128/100 01/11/19 10:22 122 H 16 127/84 01/11/19 10:00 123 H 22 01/11/19 09:30 124 H 25 H 01/11/19 09:29 122 H 23 01/11/19 08:51 37.4 C 126 H 20 139/104 H 94 01/11/19 08:41 124 H 21 139/104 H Laboratory Results Short CBC 01/11/19 Range/Units 08:54 WBC 5.76 (4.8-10.8) K/uL Hgb 16.1 (14.0-18.0) g/dL Hct 46.2 (42-52) % Plt Count 176 (130-400) K/uL BMP 01/11/19 08:54 Sodium 137 Potassium 4.1 Chloride 104 Carbon Dioxide 22 BUN 8 Creatinine 1.08 Glucose 259 H Calcium 9.3 Cardiac Enzymes 01/11/19 Range/Units 10:15 Troponin I < 0.015 (0-0.045) ng/ml Liver Function 01/11/19 Range/Units 08:54 Total Bilirubin 0.5 (0.2-1) mg/dl AST 25 (15-37) U/L ALT 39 (12-78) U/L Alkaline Phosphatase 82 (45-117) U/L Albumin 3.8 (3.4-5.0) gm/dl Diagnostic Findings T spine CT: IMPRESSION: 1. No acute bony abnormality. 2. Moderate degenerative disc change. Shoulder Xray: IMPRESSION: Moderate generalized degenerative change. No acute process. Lumbar Spine CT: IMPRESSION: 1. There is no evidence of fracture or malalignment involving the lumbar spine. 2. There are bilateral pars defects at L5 with minimal anterolisthesis at L5-S1. Hip/pelvis Xray: IMPRESSION: No acute bony abnormality is identified. Head CT: IMPRESSION: No acute intracranial findings CXR: IMPRESSION: Cardiomegaly and mild pulmonary venous hypertension. No evidence of focal pulmonary consolidation. No evidence of pneumothorax C spine CT: IMPRESSION: There is no evidence of fracture or subluxation involving the cervical spine. Medications Administered Discontinued Medications Diltiazem HCl (Cardizem) 20 mg IV NOW STA Stop: 01/11/19 11:44 Last Admin: 01/11/19 11:47 Dose: 20 mg Documented by: [id number] Cosigned by: [id number] Fentanyl Citrate (Fentanyl Citrate) 50 mcg IV ONE PRN PRN Reason: Pain Stop: 01/25/19 08:52 Last Admin: 01/11/19 08:59 Dose: 50 mcg Documented by: [id number] Fentanyl Citrate (Fentanyl Citrate) 50 mcg IV Q15M PRN PRN Reason: Pain Stop: 01/25/19 09:20 Last Admin: 01/11/19 11:10 Dose: 50 mcg Documented by: [id number] Admin: 01/11/19 09:27 Dose: 50 mcg Documented by: [id number] Heparin Sodium/Dextrose (Heparin Sodium/Dextrose) Confirm Administered Dose 25,000 units IV .STK-MED ONE Stop: 01/11/19 13:12 Last Admin: 01/11/19 13:15 Dose: 1,600 units Documented by: [id number] Cosigned by: [id number] Sodium Chloride (Nss) 500 mls @ 999 mls/hr IV .Q31M BRITTANI Stop: 01/11/19 09:30 Last Infusion: 01/11/19 10:41 Dose: 0 mls/hr Documented by: [id number] Admin: 01/11/19 09:00 Dose: 999 mls/hr Documented by: [id number] Sodium Chloride (Nss 1000ml) 1,000 mls @ 999 mls/hr IV .Q1H1M ONE Stop: 01/11/19 10:59 Last Infusion: 01/11/19 11:58 Dose: 0 mls/hr Documented by: [id number] Admin: 01/11/19 10:45 Dose: 999 mls/hr Documented by: [id number] Thiamine HCl 200 mg/ Sodium (Chloride) 52 mls @ 208 mls/hr IV NOW STA Stop: 01/11/19 10:13 Last Infusion: 01/11/19 11:05 Dose: 0 mls/hr Documented by: [id number] Admin: 01/11/19 10:45 Dose: 208 mls/hr Documented by: [id number] Metoprolol Tartrate (Lopressor) 5 mg IV NOW STA Stop: 01/11/19 12:23 Last Admin: 01/11/19 12:35 Dose: Not Given Documented by: [id number] Metoprolol Tartrate (Lopressor) Confirm Administered Dose 5 mg IV .STK-MED ONE Stop: 01/11/19 12:24 Last Admin: 01/11/19 12:26 Dose: 5 mg Documented by: [id number] Ondansetron HCl (Zofran) 4 mg IV NOW STA Stop: 01/11/19 08:54 Last Admin: 01/11/19 08:59 Dose: 4 mg Documented by: [id number] ECG Rate (beats per minute): 123 Rhythm: atrial flutter Findings: + ST depression (Inferior, lateral) Code Status & VTE Plan Code Status Full Code VTE Prophylaxis Plan VTE Prophylaxis will be ordered: Yes Supervising Physician Co-Signing Physician Notes Pt was seen and examined. Agreed with Rebeca HAYES exam assessment and plan. 58-year-old male who has a significant past medical history of CAD history of PTCA to RCA 05/05 and PTCA to left circumflex 05/06, history of paroxysmal atrial flutter status post cardioversion 01/2010 and 04/2011, T2DM, hyperlipidemia, history of tobacco abuse, alcohol abuse who presents to the ED after sustaining mechanical fall while at work. Pt said that he slipped while going down the steps. He said that he hit his head/back and neck. Imaging done in the ER showed no acute fractures. CT head showed no acute intracranial finding. He was found to be in A flutter with RVR. Denies any cardiac symptoms such as chest pain,palpitation and SOB. Received IV cardizem in the ER. Cardiology on board. Was starting on heparin drip and IV cardizem drip. Will follow cardiac marker. Check ECHO in am. Will repeat EKG in am. Pain control. Will monitor closely in tele. MD Delfino (1) Cervical sprain Encounter type: initial encounter Qualified Code(s): S13.9XXA - Sprain of joints and ligaments of unspecified parts of neck, initial encounter (2) Fall Encounter type: initial encounter Qualified Code(s): W19.XXXA - Unspecified fall, initial encounter (3) Contusion of left hip Encounter type: initial encounter Qualified Code(s): S70.02XA - Contusion of left hip, initial encounter
[2019-01-11] MEDS: HEPARIN SODIUM/DEXTROSE 25,000 UNITS/500 ML BAG IV SCH (16:00)
[2019-01-11] MEDS: INSULIN ASPART 100 UNITS/ML 3 ML PEN SC SCH ×2 (17:21→20:40)
[2019-01-11] MEDS: TRAMADOL HCL 50 MG TABLET PO PRN (17:25)
[2019-01-11] MEDS: GABAPENTIN 600 MG TAB PO SCH (19:42)
[2019-01-11 20:25] LABS: Partial Thromboplastin Ratio 1.5; Partial Thromboplastin Time 41.4 Seconds (21.0-31.0)
[2019-01-11] MEDS ORDERED: HEPARIN IV BOLUS 4,000 UNITS in SYRINGE 0 ML IV ONE (20:33)
[2019-01-11] MEDS: INSULIN GLARGINE SOLOSTAR 100 UNITS/ML 3 ML PEN SC SCH (21:33)
[2019-01-12] MEDS: TRAMADOL HCL 50 MG TABLET PO PRN (00:09)
[2019-01-12] MEDS: dilTIAZem HCl 125 MG in DEXTROSE 5% 100 ML IV SCH ×2 (00:09→13:56)
[2019-01-12 02:57] LABS: Basophils # (auto) 0.05 K/uL (0-0.2); Basophils % (auto) 0.7 %; Eosinophils # (auto) 0.23 K/uL (0-0.5); Hematocrit (blood only) 43.5 % (42-52); Hemoglobin 15.2 g/dL (14.0-18.0); Immature Granulocytes # (auto) 0.01 K/uL (0.00-0.02); Immature Granulocytes % (auto) 0.1 %; Lymphocytes # (auto) 3.07 K/uL (1.2-3.4); Lymphocytes % (auto) 40.3 %; Mean Corpuscular Hgb Conc 34.9 g/dL (32-36); Mean Corpuscular Volume 96.9 fL (80-100); Mean Platelet Volume 10.4 fL (7.4-10.4); Monocytes # (auto) 0.59 K/uL (0.11-0.59); Monocytes % (auto) 7.8 %; Neutrophils # (auto) 3.66 K/uL (1.4-6.5); Neutrophils % (auto) 48.1 %; Platelet Count 156 K/uL (130-400); RDW Coefficient of Variation 13.1 % (11.5-14.5); RDW Standard Deviation 46.2 fL (36.4-46.3); Red Blood Count 4.49 M/uL (4.7-6.1); White Blood Count 7.61 K/uL (4.8-10.8)
[2019-01-12 03:17] LABS: Partial Thromboplastin Ratio 3.4
[2019-01-12 03:19] LABS: BUN Creatinine Ratio 10.8 (10-20); Calcium 7.9 mg/dl (8.5-10.1); Creatinine Clr Calc Pharmacy 116.8 ml/min; Est GFR (African American) 109.5; Est GFR (Non-African American) 94.5; Potassium 3.7 mmol/L (3.5-5.1)
[2019-01-12] MEDS: GABAPENTIN 600 MG TAB PO SCH ×4 (03:21→17:49)
[2019-01-12 03:24] LABS: Partial Thromboplastin Time 91.3 Seconds (21.0-31.0)
[2019-01-12] MEDS ORDERED: HYDROmorphone INJ 0.5 MG/0.5 ML SYR IV STA (03:43)
[2019-01-12] MEDS: HEPARIN SODIUM/DEXTROSE 25,000 UNITS/500 ML BAG IV SCH ×2 (04:00→19:19)
[2019-01-12 05:22] LABS: Appearance Urine Clear (Clear); Bacteria Urine Automated Negative (Negative); Bilirubin Urine Negative (Negative); Blood Urine Negative (Negative); Cast Urine Automated 0 /lpf (0-5); Color Urine Yellow; Epithelial Cell Urine Auto 0-5 /lpf (0-5); Glucose Urine UA 1+ (Negative); Ketones Urine Negative (Negative); Leukocyte Esterase Urine Negative (Negative); Nitrite Urine Negative (Negative); Protein Urine Trace (Negative); RBC Urine Automated 0-4 /hpf (0-4); Specific Gravity Urine 1.015 (1.000-1.030); Urobilinogen Urine Negative (Negative); WBC Urine Automated 0 /hpf (0-5)
[2019-01-12 06:18] LABS: Estimated Average Glucose 209 mg/dl; Hemoglobin A1C 8.9 % (4.5-5.6)
[2019-01-12] MEDS: THIAMINE HCL 100 MG TAB PO SCH (07:57)
[2019-01-12] MEDS: FOLIC ACID 1 MG TAB PO SCH (07:57)
[2019-01-12] MEDS: INSULIN GLARGINE SOLOSTAR 100 UNITS/ML 3 ML PEN SC SCH ×2 (07:58→20:55)
[2019-01-12] MEDS: INSULIN ASPART 100 UNITS/ML 3 ML PEN SC SCH ×4 (08:00→20:55)
[2019-01-12] MEDS ORDERED: HYDROmorphone INJ 0.5 MG/0.5 ML SYR ONE (08:42)
[2019-01-12] MEDS ORDERED: PERFLUTREN LIPID MICROSPHERE (DEFINITY) IV ONE (09:41)
--- NOTE | 2019-01-12 10:19 | Cardiology Progress Note ---
Date of Service January 12, 2019 Assessment & Plan (1) Atrial flutter: (2) Accident due to mechanical fall without injury: The patient is in persistent atrial flutter. I am not certain as to how long he has been in the atrial flutter, so I believe he should have a transesophageal echocardiogram followed by cardioversion prior to discharge. I will continue him on IV diltiazem and heparin at this time. After the cardioversion he will need to be switched to Eliquis and oral diltiazem. He did have a transthoracic echocardiogram this morning which I will review. Subjective The patient is stable and no new cardiac complaints. He is on diltiazem adequate heart rates but unfortunately remains in atrial flutter. Echocardiogram was just completed which I will review. Review of Systems Review of Systems: All systems reviewed & are unremarkable except as noted in HPI & below Nothing additional to add. Physical Exam Physical Exam: General: no acute distress and stated age Head: normocephalic, no masses, lesions, tenderness or abnormalities Eyes: conjunctiva are pink and non-injected, sclera clear Neck: supple, no adenopathy, no bruits, normal jugular venous pulse, no hepatojugular reflux Chest: normal shape and normal respiratory effort Lungs: clear to auscultation and percussion Cardiac Exam: - irregular rate & rhythm, no murmurs gallops or rubs - normal S1, normal S2 Pulses: 2(+) throughout Abdomen: abdomen soft, non-tender, no abnormal masses and no hepatosplenomegaly Musculoskeletal: no gait disturbance, no joint inflammation, no deforming arthritis Extremities: no edema and no cyanosis Neuro: grossly normal exam Results & Data Vital Signs (Past 12 Hours) Vital Signs Temp Pulse Resp BP Pulse Ox 01/12/19 07:00 36.7 C 81 16 103/68 95 01/12/19 04:00 36.6 C 91 H 19 92/61 L 91 01/12/19 00:00 36.7 C 92 H 17 105/68 90 Laboratory Results Laboratory Results - last 24 hr 01/11/19 01/11/19 01/11/19 08:54 10:15 10:15 WBC RBC Hgb Hct MCV MCH MCHC RDW Std Deviation RDW Coeff of Mychal Plt Count MPV Immature Gran % (Auto) Neut % (Auto) Lymph % (Auto) Warrick % (Auto) Eos % (Auto) Baso % (Auto) Immature Gran # (Auto) Neut # (Auto) Lymph # (Auto) Warrick # (Auto) Eos # (Auto) Baso # (Auto) PT 10.9 INR 1.1 APTT 23.0 PTT Ratio 0.8 Sodium Potassium Chloride Carbon Dioxide Anion Gap BUN Creatinine Est Cr Clr Drug Dosing Est GFR ( Amer) Est GFR (Non-Af Amer) BUN/Creatinine Ratio Glucose POC Glucose Estimat Average Glucose Hemoglobin A1c Calcium Magnesium 2.1 Troponin I TSH 2.640 Urine Color Urine Appearance Urine pH Ur Specific [place] Urine Protein Urine Glucose (UA) Urine Ketones Urine Blood Urine Nitrite Urine Bilirubin Urine Urobilinogen Ur Leukocyte Esterase Urine WBC (Auto) Urine RBC (Auto) U Hyaline Cast (Auto) U Epithel Cells (Auto) Urine Bacteria (Auto) Ethyl Alcohol mg/dL < 3.0 01/11/19 01/11/19 01/11/19 10:15 15:19 16:30 WBC RBC Hgb Hct MCV MCH MCHC RDW Std Deviation RDW Coeff of Mychal Plt Count MPV Immature Gran % (Auto) Neut % (Auto) Lymph % (Auto) Warrick % (Auto) Eos % (Auto) Baso % (Auto) Immature Gran # (Auto) Neut # (Auto) Lymph # (Auto) Warrick # (Auto) Eos # (Auto) Baso # (Auto) PT INR APTT PTT Ratio Sodium Potassium Chloride Carbon Dioxide Anion Gap BUN Creatinine Est Cr Clr Drug Dosing Est GFR ( Amer) Est GFR (Non-Af Amer) BUN/Creatinine Ratio Glucose POC Glucose 177 H Estimat Average Glucose Hemoglobin A1c Calcium Magnesium Troponin I < 0.015 < 0.015 TSH Urine Color Urine Appearance Urine pH Ur Specific [place] Urine Protein Urine Glucose (UA) Urine Ketones Urine Blood Urine Nitrite Urine Bilirubin Urine Urobilinogen Ur Leukocyte Esterase Urine WBC (Auto) Urine RBC (Auto) U Hyaline Cast (Auto) U Epithel Cells (Auto) Urine Bacteria (Auto) Ethyl Alcohol mg/dL 01/11/19 01/11/19 01/11/19 19:55 19:55 20:37 WBC RBC Hgb Hct MCV MCH MCHC RDW Std Deviation RDW Coeff of Mychal Plt Count MPV Immature Gran % (Auto) Neut % (Auto) Lymph % (Auto) Warrick % (Auto) Eos % (Auto) Baso % (Auto) Immature Gran # (Auto) Neut # (Auto) Lymph # (Auto) Warrick # (Auto) Eos # (Auto) Baso # (Auto) PT INR APTT 41.4 H PTT Ratio 1.5 Sodium Potassium Chloride Carbon Dioxide Anion Gap BUN Creatinine Est Cr Clr Drug Dosing Est GFR ( Amer) Est GFR (Non-Af Amer) BUN/Creatinine Ratio Glucose POC Glucose 131 H Estimat Average Glucose Hemoglobin A1c Calcium Magnesium Troponin I < 0.015 TSH Urine Color Urine Appearance Urine pH Ur Specific [place] Urine Protein Urine Glucose (UA) Urine Ketones Urine Blood Urine Nitrite Urine Bilirubin Urine Urobilinogen Ur Leukocyte Esterase Urine WBC (Auto) Urine RBC (Auto) U Hyaline Cast (Auto) U Epithel Cells (Auto) Urine Bacteria (Auto) Ethyl Alcohol mg/dL 01/12/19 01/12/19 01/12/19 02:37 02:37 02:37 WBC 7.61 RBC 4.49 L Hgb 15.2 Hct 43.5 MCV 96.9 MCH 33.9 MCHC 34.9 RDW Std Deviation 46.2 RDW Coeff of Mychal 13.1 Plt Count 156 MPV 10.4 Immature Gran % (Auto) 0.1 Neut % (Auto) 48.1 Lymph % (Auto) 40.3 Warrick % (Auto) 7.8 Eos % (Auto) 3.0 Baso % (Auto) 0.7 Immature Gran # (Auto) 0.01 Neut # (Auto) 3.66 Lymph # (Auto) 3.07 Warrick # (Auto) 0.59 Eos # (Auto) 0.23 Baso # (Auto) 0.05 PT INR APTT 91.3 H* PTT Ratio 3.4 Sodium 135 L Potassium 3.7 Chloride 102 Carbon Dioxide 25 Anion Gap 8.0 BUN 10 Creatinine 0.90 Est Cr Clr Drug Dosing 116.8 Est GFR ( Amer) 109.5 Est GFR (Non-Af Amer) 94.5 BUN/Creatinine Ratio 10.8 Glucose 169 H POC Glucose Estimat Average Glucose Hemoglobin A1c Calcium 7.9 L D Magnesium Troponin I TSH Urine Color Urine Appearance Urine pH Ur Specific [place] Urine Protein Urine Glucose (UA) Urine Ketones Urine Blood Urine Nitrite Urine Bilirubin Urine Urobilinogen Ur Leukocyte Esterase Urine WBC (Auto) Urine RBC (Auto) U Hyaline Cast (Auto) U Epithel Cells (Auto) Urine Bacteria (Auto) Ethyl Alcohol mg/dL 01/12/19 01/12/19 01/12/19 02:37 05:08 07:04 WBC RBC Hgb Hct MCV MCH MCHC RDW Std Deviation RDW Coeff of Mychal Plt Count MPV Immature Gran % (Auto) Neut % (Auto) Lymph % (Auto) War[place] % (Auto) Eos % (Auto) Baso % (Auto) Immature Gran # (Auto) Neut # (Auto) Lymph # (Auto) Warrick # (Auto) Eos # (Auto) Baso # (Auto) PT INR APTT PTT Ratio Sodium Potassium Chloride Carbon Dioxide Anion Gap BUN Creatinine Est Cr Clr Drug Dosing Est GFR ( Amer) Est GFR (Non-Af Amer) BUN/Creatinine Ratio Glucose POC Glucose 179 H Estimat Average Glucose 209 Hemoglobin A1c 8.9 H Calcium Magnesium Troponin I TSH Urine Color Yellow Urine Appearance Clear Urine pH 6.0 Ur Specific [place] 1.015 Urine Protein Trace H Urine Glucose (UA) 1+ H Urine Ketones Negative Urine Blood Negative Urine Nitrite Negative Urine Bilirubin Negative Urine Urobilinogen Negative Ur Leukocyte Esterase Negative Urine WBC (Auto) 0 Urine RBC (Auto) 0-4 U Hyaline Cast (Auto) 0 U Epithel Cells (Auto) 0-5 Urine Bacteria (Auto) Negative Ethyl Alcohol mg/dL 01/12/19 09:54 WBC RBC Hgb Hct MCV MCH MCHC RDW Std Deviation RDW Coeff of Mychal Plt Count MPV Immature Gran % (Auto) Neut % (Auto) Lymph % (Auto) [place] % (Auto) Eos % (Auto) Baso % (Auto) Immature Gran # (Auto) Neut # (Auto) Lymph # (Auto) Warrick # (Auto) Eos # (Auto) Baso # (Auto) PT INR APTT Pending PTT Ratio Pending Sodium Potassium Chloride Carbon Dioxide Anion Gap BUN Creatinine Est Cr Clr Drug Dosing Est GFR ( Amer) Est GFR (Non-Af Amer) BUN/Creatinine Ratio Glucose POC Glucose Estimat Average Glucose Hemoglobin A1c Calcium Magnesium Troponin I TSH Urine Color Urine Appearance Urine pH Ur Specific [place] Urine Protein Urine Glucose (UA) Urine Ketones Urine Blood Urine Nitrite Urine Bilirubin Urine Urobilinogen Ur Leukocyte Esterase Urine WBC (Auto) Urine RBC (Auto) U Hyaline Cast (Auto) U Epithel Cells (Auto) Urine Bacteria (Auto) Ethyl Alcohol mg/dL Medications Administered Current Inpatient Medications Acetaminophen (Tylenol) 650 mg PO Q4H PRN PRN Reason: Pain or Fever Stop: 02/10/19 14:43 Al Hydrox/Mg Hydrox/Simethicone (Maalox) 15 ml PO Q4H PRN PRN Reason: Dyspepsia Stop: 02/10/19 14:43 Dextrose (Dextrose 50%) 25 - 50 ml IV UD PRN; Protocol PRN Reason: Hypoglycemia Protocol Stop: 02/10/19 14:43 Folic Acid (Folvite) 1 mg PO QAM BRITTANI Stop: 02/11/19 08:59 Last Admin: 01/12/19 07:57 Dose: 1 mg Documented by: Gabapentin (Neurontin) 600 mg PO Q12H BRITTANI Stop: 01/14/19 02:01 Gabapentin (Neurontin) 600 mg PO Q8H BRITTANI Stop: 01/13/19 02:01 Gabapentin (Neurontin) 600 mg PO Q24H BRITTANI Stop: 01/15/19 02:01 Glucagon (Glucagen) 1 mg SQ UD PRN; Protocol PRN Reason: Hypoglycemia Protocol Stop: 02/10/19 14:43 Glucose (Glucose 40%) 15 - 30 gm PO UD PRN; Protocol PRN Reason: Hypoglycemia Protocol Stop: 02/10/19 14:43 Glucose (Dex4 Glucose) 4 - 8 tabs PO UD PRN; Protocol PRN Reason: Hypoglycemia Protocol Stop: 02/10/19 14:43 Hydromorphone HCl (Dilaudid) 0.5 mg IV Q6 PRN PRN Reason: Pain Stop: 01/26/19 08:37 Heparin Sodium/Dextrose (Heparin Sodium/Dextrose) 25,000 units in 500 mls @ 32 mls/hr IV .[id number] BRITTANI; Protocol Stop: 02/10/19 13:29 Last Titration: 01/12/19 08:04 Dose: 1,600 units/hr, 32 mls/hr Documented by: Diltiazem HCl 125 mg/ Dextrose 125 mls @ 10 mls/hr IV .[id number] BRITTANI; Protocol Stop: 02/10/19 13:59 Last Titration: 01/12/19 08:03 Dose: 10 mg/hr, 10 mls/hr Documented by: Insulin Aspart (Novolog Flexpen) 0 units SC ACHS [facility] Stop: 02/10/19 16:29 Last Admin: 01/12/19 08:00 Dose: 6 units Documented by: Insulin Glargine (Lantus Solostar Pen) 0 units SC BID [facility] Stop: 02/10/19 20:59 Last Admin: 01/12/19 07:58 Dose: 5 units Documented by: Lorazepam (Ativan) 1 mg PO ONE PRN; Protocol PRN Reason: EtoH Withdrawal AWSS 6-10 Magnesium Hydroxide (Milk Of Magnesia) 30 ml PO Q12H PRN PRN Reason: Constipation Stop: 02/10/19 14:43 Miscellaneous (Carbohydrates For Hypoglycemia) 15 - 30 gm PO UD PRN PRN Reason: Hypoglycemia Treatment Stop: 02/10/19 14:43 Nitroglycerin (Nitrostat) 0.4 mg SL UD PRN PRN Reason: Chest Pain Stop: 02/10/19 14:43 Polyethylene Glycol (Miralax Powder Packet) 17 gm PO DAILY PRN PRN Reason: Constipation Stop: 02/10/19 14:43 Thiamine HCl (Vitamin B-1) 100 mg PO QAM [facility] Stop: 02/11/19 08:59 Last Admin: 01/12/19 07:57 Dose: 100 mg Documented by: Tramadol HCl (Ultram) 50 mg PO Q4H PRN PRN Reason: Moderate Pain Stop: 02/10/19 14:43 Last Admin: 01/12/19 00:09 Dose: 50 mg Documented by:
[2019-01-12 10:26] LABS: Partial Thromboplastin Ratio 2.3
[2019-01-12 11:32] LABS: Partial Thromboplastin Time 63.6 Seconds (21.0-31.0)
--- NOTE | 2019-01-12 13:50 | Anesthesiology Consultation ---
Date of Service January 12, 2019 The patient presented after falling down stairs at work. He was found to be in afib with RVR. Assessment & Plan (1) Encounter for pre-operative examination: Chart Review Chart Review: Acceptable Risk for Surgery and Patient NOT seen in Pre Admission Testing Consults Requested none History Surgery Operation Date: 01/13/19 07:30 Proposed Procedures p Transesophageal Echo w/Anesthesia - Cristino Levine DO s Cardioversion - Cristino Levine DO Height/Weight Height: 6 ft Weight: 113.3 kg Allergies Allergy/AdvReac Type Severity Reaction Status Date / Time codeine Allergy Intermediate GI Verified 01/11/19 08:59 SYMPTOMS and tachycardia morphine Allergy Intermediate GI SYMPTOMS Verified 01/11/19 08:59 Sulfa (Sulfonamide Allergy Unknown unknown Verified 01/11/19 08:59 Antibiotics) Medications Home Medications Medication Instructions Recorded Confirmed Last Taken aspirin 325 mg PO QAM 07/20/18 01/11/19 01/11/19 cholecalciferol (vitamin D3) 1,000 unit PO QAM 07/20/18 01/11/19 01/11/19 [Vitamin D3] ibuprofen 600 mg PO TID PRN 07/20/18 01/11/19 Unknown metformin 1,000 mg PO BID 07/20/18 01/11/19 01/11/19 multivitamin 1 tab PO QAM 07/20/18 01/11/19 01/11/19 omega 1-idy-yio-fish oil [Fish Oil] 2 cap PO QAM 07/20/18 01/11/19 01/11/19 zinc 50 mg PO QAM 07/20/18 01/11/19 01/11/19 Active Medications Generic Name Dose Route Start Last Admin Trade Name Freq PRN Reason Stop Dose Admin Folic Acid 1 mg 01/12/19 09:00 01/12/19 07:57 Folvite PO 02/11/19 08:59 1 mg QAM BRITTANI Administration Gabapentin 600 mg 01/12/19 10:00 01/12/19 12:05 Neurontin PO 01/13/19 02:01 600 mg Q8H BRITTANI Administration Heparin Sodium/Dextrose 25,000 units in 500 mls @ 32 mls/hr 01/11/19 13:30 01/12/19 08:04 Heparin Sodium/Dextrose IV 02/10/19 13:29 1,600 units/hr .[id number] BRITTANI 32 mls/hr Titration Protocol 1,600 UNITS/HR Diltiazem HCl 125 mg/ Dextrose 125 mls @ 10 mls/hr 01/11/19 14:00 01/12/19 13:56 IV 02/10/19 13:59 10 mg/hr .[id number] BRITTANI 10 mls/hr Administration Protocol 10 MG/HR Insulin Aspart 0 units 01/11/19 16:30 01/12/19 13:54 Novolog Flexpen SC 02/10/19 16:29 8 units ACHS BRITTANI Administration Insulin Glargine 0 units 01/11/19 21:00 01/12/19 07:58 Lantus Solostar Pen SC 02/10/19 20:59 5 units BID BRITTANI Administration Thiamine HCl 100 mg 01/12/19 09:00 01/12/19 07:57 Vitamin B-1 PO 02/11/19 08:59 100 mg QAM BRITTANI Administration Tramadol HCl 50 mg 01/11/19 14:44 01/12/19 00:09 Ultram PO 02/10/19 14:43 50 mg Q4H PRN Administration Moderate Pain Past Medical History Medical History CAD (coronary artery disease) Paroxysmal atrial flutter T2DM (type 2 diabetes mellitus) HTN (hypertension) HLD (hyperlipidemia) Alcohol abuse History of tobacco abuse Past Family History Family History Father Coronary heart disease Hypertension Mother Coronary heart disease Brother Diabetes Other No known problems Past Surgical History Surgical History History of tonsillectomy and adenoidectomy History of colonoscopy History of heart artery stent RCA 09/03; L circumflex 05/06 Social History Smoking Status: Former smoker tobacco type: cigarettes Do You Dip or Chew Tobacco: No Smoking End Date: April 2018 Hx Alcohol Use: Yes Alcohol type: hard liquor alcohol intake frequency: a few times a week Alcohol Intake Frequency Comment: Has gone without for several week Hx Substance Use: No Physical Exam Vital Signs Last Vital Signs Temp 36.5 C 01/12/19 11:44 Pulse 61 01/12/19 11:44 Resp 16 01/12/19 11:44 BP 91/60 L 01/12/19 11:44 Pulse Ox 94 01/12/19 11:44 Testing Laboratory Results 01/12/19 02:37 01/12/19 02:37 PT 10.9 Seconds (9.0-12.0) 01/11/19 10:15 INR 1.1 (0.9-1.1) 01/11/19 10:15 APTT 63.6 Seconds (21.0-31.0) H* 01/12/19 09:54 Hemoglobin A1c 8.9 % (4.5-5.6) H 01/12/19 02:37 Urine Color Yellow 01/12/19 05:08 Urine Appearance Clear (Clear) 01/12/19 05:08 Urine pH 6.0 (4.5-7.5) 01/12/19 05:08 Ur Specific [place] 1.015 (1.000-1.030) 01/12/19 05:08 Urine Protein Trace (Negative) H 01/12/19 05:08 Urine Glucose (UA) 1+ (Negative) H 01/12/19 05:08 Urine Ketones Negative (Negative) 01/12/19 05:08 Urine Nitrite Negative (Negative) 01/12/19 05:08 Ur Leukocyte Esterase Negative (Negative) 01/12/19 05:08 Urine WBC (Auto) 0 /hpf (0-5) 01/12/19 05:08 Urine RBC (Auto) 0-4 /hpf (0-4) 01/12/19 05:08 U Hyaline Cast (Auto) 0 /lpf (0-5) 01/12/19 05:08 U Epithel Cells (Auto) 0-5 /lpf (0-5) 01/12/19 05:08 Urine Bacteria (Auto) Negative (Negative) 01/12/19 05:08 01/12/19 01/12/19 11:25 07:04 POC Glucose 172 H 179 H Electrocardiogram Date: 01/12/19 Atrial flutter with variable A-V block with premature ventricular or aberrantly conducted complexes Rightward axis Cannot rule out Inferior infarct (cited on or before 11-JAN-2019) Prolonged QT Abnormal ECG When compared with ECG of 11-JAN-2019 11:17, Vent. rate has decreased BY [address] less depressed in Inferior leads Inverted T waves have replaced nonspecific T wave abnormality in Inferior leads Nonspecific T wave abnormality now evident in Lateral leads Chest X-Ray Date: 01/11/19 XR chest 1V not portable CLINICAL HISTORY: Chest pain status post trauma COMPARISON STUDY: 05/19/2019 FINDINGS: The heart is enlarged. There is mild pulmonary venous hypertension. There is no lobar consolidation. There are no pleural effusions. There is no pneumothorax.[ IMPRESSION: Cardiomegaly and mild pulmonary venous hypertension. No evidence of focal pulmonary consolidation. No evidence of pneumothorax Electronically signed by: Felix Zurita M.D. 01/11/2019 10:55 AM Dictated: 01/11/19 1054 Transcribed: 01/11/19 1054 Cervical Spine Date: 01/11/19 CT SCAN OF THE CERVICAL SPINE CLINICAL HISTORY: Fall. COMPARISON STUDY: CT angiogram of the neck dated . TECHNIQUE: CT scan of the cervical spine is performed from the skull base to the upper thoracic spine. Images are reviewed in the axial, sagittal, and coronal planes. IV contrast was not administered for this examination. A dose lowering technique was utilized adhering to the principles of ALARA. CT DOSE: 3903.17 mGy.cm FINDINGS: Skeletal structures: The skeletal structures are osteopenic. There is no evidence of fracture or subluxation involving the cervical spine. Vertebral body height and alignment are maintained. There is straightening of the cervical lordosis. Small anterior osteophytes are seen in the lower cervical region. The odontoid process and lateral masses are intact. The atlantoaxial articulation is preserved noting productive degenerative change. The spinous processes appear intact. Intervertebral discs: There is moderate disc space narrowing seen at C6-C7 and C7-T1. The remaining disc spaces appear maintained. Central canal: Posterior disc osteophyte complexes at C6-C7 and C7-T1 may contribute to mild acquired compromise the central canal. Soft tissues: The prevertebral and paraspinous soft tissues are within normal limits. There is atherosclerotic calcification of the carotid bulbs. Calvarium: The visualized calvarium at the skull base appears intact. Brain parenchyma: Partially visualized brain parenchyma the skull base is within normal limits. Sinuses and mastoids: The visualized paranasal sinuses are clear. The mastoid air cells are well pneumatized. Lung apices: Clear as visualized. IMPRESSION: There is no evidence of fracture or subluxation involving the cervical spine. Electronically signed by: Clifford Brizuela M.D. 01/11/2019 9:36 AM Dictated: 01/11/[address] head/brain wo con CLINICAL HISTORY: Head pain status post trauma COMPARISON STUDY: 09/04/2018 TECHNIQUE: Axial CT of the brain is performed from the vertex to the skull base. IV contrast was not administered for this examination. A dose lowering technique was utilized adhering to the principles of ALARA. CT DOSE: FINDINGS: No intra or extra-axial mass lesions are visualized. There is no CT evidence of acute cortical infarction. There is no evidence of midline shift. There is no acute hemorrhage. No calvarial fractures are visualized. There is no evidence of pathologic ventricular dilatation. There are persistent inflammatory changes within the left maxillary sinus. IMPRESSION: No acute intracranial findings Electronically signed by: Felix Zurita M.D. 01/11/2019 9:36 AM Dictated: 01/11/19 0935 Transcribed: 01/11/19 0935
[2019-01-12] MEDS: HYDROmorphone INJ 0.5 MG/0.5 ML SYR IV PRN (16:50)
--- NOTE | 2019-01-12 19:43 | Hospitalist Progress Note ---
Date of Service January 12, 2019 Assessment & Plan (1) Atrial flutter with rapid ventricular response: This is a 58-year-old male who has a significant past medical history of CAD history of PTCA to RCA 05/05 and PTCA to left circumflex 05/06, history of paroxysmal atrial flutter status post cardioversion 01/2010 and 04/2011, T2DM, hyperlipidemia, history of tobacco abuse, alcohol abuse who presents [facility] ED after sustaining mechanical fall while at work. Found to be in atrial flutter with RVR in ED hx of PAF in past requiring cardioversion and anticoagulation Currently he is asymptomatic CBC, CMP, TSH relatively unremarkable Seen and evaluated by Dr. Levine appreciate input pt received IV lopressor in ED Chadsvasc 3- IV heparin initiated on Diltiazem drip, remains in A fliutter ECHO shows no wall motion abnormality no valvular pathology plan for MINAL cardioversion in AM (2) Fall: Pt suffered a mechanical fall while at work falling down 5 steps, landing on bottom and falling head/face first into wall He underwent trauma series of scans including cervical, lumbar, thoracic CT along with a pelvis x-ray shoulder x-ray. No acute fracture or dislocations noted. Cervically he did have disc space narrowing C6-7 and C7-T1 with posterior disc osteophyte causing mild canal comprise along. Lumbar CT significant for b/l pars defect L5 minimal anterolisthesis L5-S1. conservative tx with ice, rest, analgesia APAP, tramadol prn for pain control ordered for Pt/OT (3) Cervical sprain: supportive care rest, ice prn analgesia if no improvement consider muscle relaxer (4) Contusion of left hip: as above (5) CAD (coronary artery disease): hx of Stent x 2 (RCA 04' and L circumflex 05') no chest pain, sob troponin WNL on IV heparin for Aflutter ECHO shows not wall motion abnormality (6) T2DM (type 2 diabetes mellitus): Last A1C 7.4 09/18 hold metformin lantus/novolog per protocol (7) HTN (hypertension): blood pressure labile on admission not on any oral antihypertensives monitor, likely elevated in setting of pain (8) Alcohol abuse: pt admits to drinking 3-4 shots of kellen Guido 4 x a week (per epic it says 6-7 shots daily) received IV thiamine in ED, ETOH negative AWSS protocol initiated with gabapentin taper lorazepam prn monitor for s/sx of withdrawal (9) DVT prophylaxis: On Heparin Gtt Disposition: d/c to home when able Follow up: PCP Dr. Wood upon discharge follow up with cardiology Dr Carl on discharge Subjective pt denies of any sob , dizzy spell or lightheadedness no chest heaviness , no orthopnea complains of low back pain -getting relief with current pain regimen Review of Systems Review of Systems: All systems reviewed & are unremarkable except as noted in HPI & below Physical Exam Constitutional: WD/WN, vitals as above no acute distress Eyes: PERRL, conjunctivae normal, anicteric sclerae ENMT: external ear and nose normal, oropharynx normal Neck: trachea midline, no thyromegaly Respiratory: normal respiratory effort, lungs clear to auscultation Cardiovascular: Rate/Rhythm: + abnormal rate irregular Gastrointestinal (Abdomen): normal bowel sounds, soft, nontender, no hepatosplenomegaly Musculoskeletal: no cyanosis or clubbing, extremities motor strength 5/5 Skin: no rashes, warm and dry Neurologic: PERRL, EOMI, accommodation nl, no face palsy, no dysarthria Psychiatric: A+Ox3, euthymic affect Results & Data Vital Signs (Past 12 Hours) Vital Signs Temp Pulse Pulse Resp BP Pulse Ox 01/12/19 19:11 36.7 C 104 H 19 96/62 L 93 01/12/19 16:00 80 01/12/19 11:44 36.5 C 61 16 91/60 L 94 01/12/19 08:00 82 (1) Cervical sprain Encounter type: initial encounter Qualified Code(s): S13.9XXA - Sprain of joints and ligaments of unspecified parts of neck, initial encounter (2) Fall Encounter type: initial encounter Qualified Code(s): W19.XXXA - Unspecified fall, initial encounter (3) Contusion of left hip Encounter type: initial encounter Qualified Code(s): S70.02XA - Contusion of left hip, initial encounter
[2019-01-13] MEDS: dilTIAZem HCl 125 MG in DEXTROSE 5% 100 ML IV SCH (01:13)
[2019-01-13] MEDS: GABAPENTIN 600 MG TAB PO SCH ×2 (02:30→14:04)
[2019-01-13] MEDS ORDERED: LIDOCAINE HCL 2% MPF (LOCAL) 5 ML VIAL INFIL ONE (07:20)
[2019-01-13] MEDS ORDERED: PROPOFOL IV EMULSION 10 MG/ML 20 ML VIAL IV ONE (07:20)
[2019-01-13 07:23] LABS: Basophils # (auto) 0.03 K/uL (0-0.2); Basophils % (auto) 0.4 %; Eosinophils % (auto) 2.9 %; Hemoglobin 14.7 g/dL (14.0-18.0); Immature Granulocytes # (auto) 0.01 K/uL (0.00-0.02); Immature Granulocytes % (auto) 0.1 %; Mean Corpuscular Volume 95.9 fL (80-100); Mean Platelet Volume 10.7 fL (7.4-10.4); Monocytes # (auto) 0.57 K/uL (0.11-0.59); Monocytes % (auto) 8.2 %; Neutrophils # (auto) 4.32 K/uL (1.4-6.5); Neutrophils % (auto) 62.4 %; Platelet Count 157 K/uL (130-400); RDW Coefficient of Variation 12.7 % (11.5-14.5); RDW Standard Deviation 44.8 fL (36.4-46.3); Red Blood Count 4.38 M/uL (4.7-6.1); White Blood Count 6.93 K/uL (4.8-10.8)
[2019-01-13 07:45] LABS: Partial Thromboplastin Ratio 1.9
--- NOTE | 2019-01-13 07:51 | Cardioversion ---
Date of Service January 13, 2019 Electrical Cardioversion Rpt Electrical Cardioversion Report After informed consent was obtained the patient received sedation by anesthesia. A transesophageal echocardiogram was performed which did not reveal any contraindication to cardioversion. He then received 200 J of synchronized energy. He returned to a normal sinus rhythm. He was recovered in the holding area the [facility] [employer]uber and then returned to his room in stable condition.
[2019-01-13 07:53] LABS: Partial Thromboplastin Time 52.7 Seconds (21.0-31.0)
--- NOTE | 2019-01-13 08:07 | Anesthesiology Progress Note ---
Date of Service January 13, 2019 Anesthesia Post Procedure Vital Signs Vital Signs: Temp Pulse Pulse Resp BP Pulse Ox 01/13/19 08:00 36.7 C 103 H 19 118/85 90 01/13/19 04:44 36.4 C L 119 H 18 114/76 91 01/12/19 23:48 36.7 C 61 18 103/69 93 01/12/19 23:09 98 H 01/12/19 19:11 36.7 C 104 H 19 96/62 L 93 01/12/19 16:00 80 01/12/19 11:44 36.5 C 61 16 91/60 L 94 Pain Intensity Back: Pain Intensity: 7 Transfer of Care Handoff Completed per policy Notes Mental Status: alert / awake / arousable and participated in evaluation Patient Amnestic to Procedure: Yes Nausea / Vomiting: adequately controlled Pain: adequately controlled Airway Patency, RR, SpO2: stable & adequate BP & HR: stable & adequate Hydration State: stable & adequate Anesthetic Complications: no major complications apparent
[2019-01-13] MEDS: FOLIC ACID 1 MG TAB PO SCH (08:46)
[2019-01-13] MEDS: THIAMINE HCL 100 MG TAB PO SCH (08:47)
[2019-01-13] MEDS: INSULIN GLARGINE SOLOSTAR 100 UNITS/ML 3 ML PEN SC SCH (08:49)
[2019-01-13] MEDS: TRAMADOL HCL 50 MG TABLET PO PRN (09:08)
[2019-01-13] MEDS ORDERED: APIXABAN 5 MG TABLET PO SCH ×2 (09:30→21:00)
[2019-01-13] MEDS: HYDROmorphone INJ 0.5 MG/0.5 ML SYR IV PRN (11:05)
[2019-01-13] MEDS: INSULIN ASPART 100 UNITS/ML 3 ML PEN SC SCH ×3 (11:18→16:41)
--- NOTE | 2019-01-13 11:47 | Cardiology Progress Note ---
Date of Service January 13, 2019 Assessment & Plan (1) Atrial flutter: (2) Accident due to mechanical fall without injury: The patient underwent a successful cardioversion today. He is maintaining sinus rhythm. He will be switched over to Eliquis and diltiazem. I will arrange follow-up for next week. Subjective Patient seen post cardioversion. His was with him in his room. All questions were answered. Review of Systems Review of Systems: All systems reviewed & are unremarkable except as noted in HPI & below Nothing additional to add. Physical Exam Physical Exam: General: no acute distress and stated age Head: normocephalic, no masses, lesions, tenderness or abnormalities Eyes: conjunctiva are pink and non-injected, sclera clear Neck: supple, no adenopathy, no bruits, normal jugular venous pulse, no hepatojugular reflux Chest: normal shape and normal respiratory effort Lungs: clear to auscultation and percussion Cardiac Exam: - regular rate & rhythm, no murmurs gallops or rubs - normal S1, normal S2 Pulses: 2(+) throughout Abdomen: abdomen soft, non-tender, no abnormal masses and no hepatosplenomegaly Musculoskeletal: no gait disturbance, no joint inflammation, no deforming arthritis Extremities: no edema and no cyanosis Neuro: grossly normal exam Results & Data Vital Signs (Past 12 Hours) Vital Signs Temp Pulse Resp BP Pulse Ox 01/13/19 11:23 36.6 C 90 18 108/72 92 01/13/19 09:05 76 100/69 01/13/19 08:14 36.7 C 90 18 92/68 L 90 01/13/19 08:00 36.7 C 103 H 19 118/85 90 01/13/19 04:44 36.4 C L 119 H 18 114/76 91 01/12/19 23:48 36.7 C 61 18 103/69 93 Laboratory Results Laboratory Results - last 24 hr 01/12/19 01/12/19 01/12/19 11:25 16:34 20:45 WBC RBC Hgb Hct MCV MCH MCHC RDW Std Deviation RDW Coeff of Mychal Plt Count MPV Immature Gran % (Auto) Neut % (Auto) Lymph % (Auto) Parker % (Auto) Eos % (Auto) Baso % (Auto) Immature Gran # (Auto) Neut # (Auto) Lymph # (Auto) [place] # (Auto) Eos # (Auto) Baso # (Auto) APTT PTT Ratio POC Glucose 172 H 180 H 113 H 01/13/19 01/13/19 01/13/19 07:03 07:03 08:47 WBC 6.93 RBC 4.38 L Hgb 14.7 Hct 42.0 MCV 95.9 MCH 33.6 MCHC 35.0 RDW Std Deviation 44.8 RDW Coeff of Mychal 12.7 Plt Count 157 MPV 10.7 H Immature Gran % (Auto) 0.1 Neut % (Auto) 62.4 Lymph % (Auto) 26.0 Parker % (Auto) 8.2 Eos % (Auto) 2.9 Baso % (Auto) 0.4 Immature Gran # (Auto) 0.01 Neut # (Auto) 4.32 Lymph # (Auto) 1.80 Parker # (Auto) 0.57 Eos # (Auto) 0.20 Baso # (Auto) 0.03 APTT 52.7 H* PTT Ratio 1.9 POC Glucose 182 H 01/13/19 11:12 WBC RBC Hgb Hct MCV MCH MCHC RDW Std Deviation RDW Coeff of Mychal Plt Count MPV Immature Gran % (Auto) Neut % (Auto) Lymph % (Auto) [place] % (Auto) Eos % (Auto) Baso % (Auto) Immature Gran # (Auto) Neut # (Auto) Lymph # (Auto) Parker # (Auto) Eos # (Auto) Baso # (Auto) APTT PTT Ratio POC Glucose 206 H Medications Administered Current Inpatient Medications Acetaminophen (Tylenol) 650 mg PO Q4H PRN PRN Reason: Pain or Fever Stop: 02/10/19 14:43 Apixaban (Eliquis) 5 mg PO BID [facility] Stop: 02/12/19 09:29 Last Admin: 01/13/19 11:07 Dose: 5 mg Documented by: Dextrose (Dextrose 50%) 25 - 50 ml IV UD PRN; Protocol PRN Reason: Hypoglycemia Protocol Stop: 02/10/19 14:43 Diltiazem [facility] ([facility]or [facility]r) [facility] [place]: 02/12/19 09:14 Last Admin: 01/13/19 09:30 Dose: 120 mg Documented by: Folic Acid (Folvite) 1 mg PO QAM [facility] Stop: 02/11/19 08:59 Last Admin: 01/13/19 08:46 Dose: 1 mg Documented by: Gabapentin (Neurontin) 600 mg PO Q12H BRITTANI Stop: 01/14/19 02:01 Gabapentin (Neurontin) 600 mg PO Q24H BRITTANI Stop: 01/15/19 02:01 Glucagon (Glucagen) 1 mg SQ UD PRN; Protocol PRN Reason: Hypoglycemia Protocol Stop: 02/10/19 14:43 Glucose (Glucose 40%) 15 - 30 gm PO UD PRN; Protocol PRN Reason: Hypoglycemia Protocol Stop: 02/10/19 14:43 Glucose (Dex4 Glucose) 4 - 8 tabs PO UD PRN; Protocol PRN Reason: Hypoglycemia Protocol Stop: 02/10/19 14:43 Hydromorphone HCl (Dilaudid) 0.5 mg IV Q6 PRN PRN Reason: Pain Stop: 01/26/19 08:37 Last Admin: 01/13/19 11:05 Dose: 0.5 mg Documented by: Insulin Aspart (Novolog Flexpen) 0 units SC ACHS BRITTANI Stop: 02/10/19 16:29 Last Admin: 01/13/19 11:18 Dose: Not Given Documented by: Insulin Glargine (Lantus Solostar Pen) 0 units SC BID BRITTANI Stop: 02/10/19 20:59 Last Admin: 01/13/19 08:49 Dose: 10 units Documented by: Lorazepam (Ativan) 1 mg PO ONE PRN; Protocol PRN Reason: EtoH Withdrawal AWSS 6-10 Magnesium Hydroxide (Milk Of Magnesia) 30 ml PO Q12H PRN PRN Reason: Constipation Stop: 02/10/19 14:43 Miscellaneous (Carbohydrates For Hypoglycemia) 15 - 30 gm PO UD PRN PRN Reason: Hypoglycemia Treatment Stop: 02/10/19 14:43 Nitroglycerin (Nitrostat) 0.4 mg SL UD PRN PRN Reason: Chest Pain Stop: 02/10/19 14:43 Polyethylene Glycol (Miralax Powder Packet) 17 gm PO DAILY PRN PRN Reason: Constipation Stop: 02/10/19 14:43 Thiamine HCl (Vitamin B-1) 100 mg PO QAM BRITTANI Stop: 02/11/19 08:59 Last Admin: 01/13/19 08:47 Dose: 100 mg Documented by: Tramadol HCl (Ultram) 50 mg PO Q4H PRN PRN Reason: Moderate Pain Stop: 02/10/19 14:43 Last Admin: 01/13/19 09:08 Dose: 50 mg Documented by:
[2019-01-13] MEDS ORDERED: ACETAMINOPHEN 325 MG TAB PO PRN (16:01)
--- NOTE | 2019-01-13 16:24 | Hospitalist Progress Note ---
Date of Service January 13, 2019 Assessment & Plan (1) Atrial flutter with rapid ventricular response: This is a 58-year-old male who has a significant past medical history of CAD history of PTCA to RCA 05/05 and PTCA to left circumflex 05/06, history of paroxysmal atrial flutter status post cardioversion 01/2010 and 04/2011, T2DM, hyperlipidemia, history of tobacco abuse, alcohol abuse who presents to [facility] ED after sustaining mechanical fall while at work. -Found to be in atrial flutter with RVR in ED, hx of PAF in past requiring cardioversion and anticoagulation. CBC, CMP, TSH relatively unremarkable, pt received IV lopressor in ED , Chadsvasc 3- IV heparin initiated and also was on IV diltiazem drip -ECHO shows no wall motion abnormality no valvular pathology -patient had cardioversion on 01/13/19 and returned to sinus rhythm, patient was transitioned from IV diltiazem to oral diltiazem and transitioned from IV heparin to Eliquis -Follow up (01/18/2019 2:20 PM Provider Citlalli Jones MD Department General Internal Medicine [facility] 01/19/2019 9:00 AM Provider) (Cristino Levine DO Department Cardiology, [facility]) -Prescriptions of Diltiazem 120 mg and Eliquis 5 mg twice a day and acetaminophen sent electronically to [facility] [address] [place] [address], [place] [address] (2) Fall: Pt suffered a mechanical fall while at work falling down 5 steps, landing on bottom and falling head/face first into wall He underwent trauma series of scans including cervical, lumbar, thoracic CT along with a pelvis x-ray shoulder x-ray. No acute fracture or dislocations noted. Cervically he did have disc space narrowing C6-7 and C7-T1 with posterior disc osteophyte causing mild canal comprise along. Lumbar CT significant for b/l pars defect L5 minimal anterolisthesis L5-S1. -was treated with ice and pain medications for cervical sprain and contusion of left hip -Patient should stop aspirin and ibuprofen at home while on Eliquis Patient may take acetaminophen 325 mg every 8 hours as needed for next 5 days for mild pain Patient may take tramadol 50 mg every 6 hours as need fro moderate to severe pain. Patient should not take tramadol with alcohol. [place] PDMP was checked and patient does not have active prior controlled substance medications this past year prior to this hospital stay (3) Cervical sprain: management as above (4) Contusion of left hip: management as above (5) CAD (coronary artery disease): hx of Stent x 2 (RCA 04' and L circumflex 05') no chest pain, sob troponin WNL ECHO shows not wall motion abnormality (6) T2DM (type 2 diabetes mellitus): Type 2 diabetes mellitus without oysterman current use of insulin and without complications, -Patient may continue to take metformin for diabetes melltius but given HbA1c of 8.9, patient may need additional diabetes medications as per primary care doctor (7) HTN (hypertension): -initially elevated blood pressure due to pain -blood pressure controlled -no blood pressure medications needed on discharge at this time (8) Alcohol abuse: -pt admits to drinking 3-4 shots of kellen Lora 4 x a week (per epic it says 6-7 shots daily) on presentation -received IV thiamine in ED, ETOH negative AWSS protocol initiated with gabapentin taper and lorazepam prn -no alcohol withdrawal witnessed during hospital stay (9) DVT prophylaxis: Eliquis Discharge instructions Atrial flutter with rapid ventricular response, s/p cardioversion on this admission, anticoagulated by anticoagulation therapy, Type 2 diabetes mellitus without usp current use of insulin and without complications, Mechanical Fall, left hip contusion Subjective Patient had cardioversion today and returned to sinus rhythm. no chest pain. no palpitations. remains in sinus rhythm and heart rate controlled. denies shortness of breath. no headache. no dizziness. no discomfort Physical Exam Constitutional: WD/WN, vitals as above Eyes: PERRL, conjunctivae normal, anicteric sclerae ENMT: external ear and nose normal, oropharynx normal Neck: trachea midline, no thyromegaly Respiratory: normal respiratory effort, lungs clear to auscultation Cardiovascular: RRR, no murmur, no edema Gastrointestinal (Abdomen): normal bowel sounds, soft, nontender, no hepatosplenomegaly Musculoskeletal: Head/Neck/Chest: normocephalic and head atraumatic Neurologic: PERRL, EOMI, accommodation nl, no face palsy, no dysarthria CN's II-XI intact bilaterally Psychiatric: A+Ox3, euthymic affect Results & Data Vital Signs (Past 12 Hours) Vital Signs Temp Pulse Pulse Resp BP Pulse Ox 01/13/19 16:22 36.4 C L 83 19 98/73 L 92 01/13/19 15:12 36.4 C L 83 19 98/73 L 92 01/13/19 14:20 84 01/13/19 11:23 36.6 C 90 18 108/72 92 01/13/19 09:05 76 100/69 01/13/19 08:14 36.7 C 90 18 92/68 L 90 01/13/19 08:00 36.7 C 103 H 19 118/85 90 01/13/19 04:44 36.4 C L 119 H 18 114/76 91 (1) Cervical sprain Encounter type: initial encounter Qualified Code(s): S13.9XXA - Sprain of joints and ligaments of unspecified parts of neck, initial encounter (2) Fall Encounter type: initial encounter Qualified Code(s): W19.XXXA - Unspecified fall, initial encounter (3) Contusion of left hip Encounter type: initial encounter Qualified Code(s): S70.02XA - Contusion of left hip, initial encounter
--- NOTE | 2019-01-13 16:34 | Discharge Summary ---
Date of Service January 13, 2019 Admission HPI Per Admitting Provider This is a 58-year-old male who has a significant past medical history of CAD history of PTCA to RCA 05/05 and PTCA to left circumflex 05/06, history of paroxysmal atrial flutter status post cardioversion 01/2010 and 04/2011, T2DM, hyperlipidemia, history of tobacco abuse, alcohol abuse who presents to [facility] ED after sustaining mechanical fall while at work. Patient was walking down the steps when he slipped, fell on bottom and fell down additional 5 steps hitting head and face into a wall. Was unable to get up on his own secondary to significant neck, back and left leg pain. Therefore he presented to ED. Upon presentation patient was found to be in atrial flutter with RVR, although asymptomatic. All of his complaints were secondary to pain from fall. While in ED he received 20 mg IV Cardizem without relief along with additional metoprolol 5 mg IV with no reduction in rate. He was seen and evaluated by Dr. Levine, cardiology and initiated on IV heparin drip given chadsvasc 3. He underwent trauma series of scans including cervical, lumbar, thoracic CT along with a pelvis x-ray shoulder x-ray. No acute fracture or dislocations noted. Cervically he did have disc space narrowing C6-7 and C7-T1 with posterior disc osteophyte causing mild canal comprise along. Lumbar CT significant for b/l pars defect L5 minimal anterolisthesis L5-S1. He currently denies any f/c/s, recent illness, dizziness, lightheaded, syncope, BALLARD, change in vision/hearing, chest pain, palpitations, sob, camacho, n/v/d, abdominal pain, change in bowel or urinary habits. Complains of neck stiffness, pain in mid/low back with radiation to L leg through knee and numbness. Admission Exam Per Admitting Provider Gen: WD/WN, M, in pain, NAD, lying in bed, pleasant, conversing easily Head: Normocephalic, Atraumatic Eyes: Sclera normal, no conjunctival injection, PERRLA, EOMI ENT: Gross hearing intact, normal pharynx, mucous membranes moist Neck: supple, no adenopathy, No JVD, no bruit, Resp: Clear to auscultation b/l, no wheeze, rales, rhonchi. 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 pharmaceutical officer strength Extremities: No edema bilaterally Skin: warm, moist, no rash, negative turgor, cap refill < 2sec Neuro: Alert and oriented x 3, speech normal, good mood/affect, cran nerve 2-12 intact grossly : deferred Principal Diagnosis Atrial flutter with rapid ventricular response, s/p cardioversion on this admission, anticoagulated by anticoagulation therapy, Type 2 diabetes mellitus without oysterman current use of insulin and without complications, Mechanical Fall, left hip contusion Discharge Exam Constitutional WD/WN, vitals as above Eyes PERRL, conjunctivae normal, anicteric sclerae ENMT external ear and nose normal, oropharynx normal Neck trachea midline, no thyromegaly Respiratory normal respiratory effort, lungs clear to auscultation Cardiovascular RRR, no murmur, no edema Gastrointestinal (Abdomen) normal bowel sounds, soft, nontender, no hepatosplenomegaly Musculoskeletal Head/Neck/Chest: normocephalic and head atraumatic Neurologic PERRL, EOMI, accommodation nl, no face palsy, no dysarthria CN's II-XI intact bilaterally Psychiatric A+Ox3, euthymic affect Discharge Data Allergies Allergy/AdvReac Type Severity Reaction Status Date / Time codeine Allergy Intermediate GI Verified 01/11/19 08:59 SYMPTOMS and tachycardia morphine Allergy Intermediate GI SYMPTOMS Verified 01/11/19 08:59 Sulfa (Sulfonamide Allergy Unknown unknown Verified 01/11/19 08:59 Antibiotics) Consultations 01/11/19 12:33 ED Decision to Admit Stat 01/11/19 14:44 Consult Cardiology Routine Consult Case Management - Discharge Planning Routine 01/12/19 10:10 Consult Anesthesiology Routine 01/12/19 10:12 Consult Anesthesiology Routine Procedures Performed Operation Date: 01/13/19 07:30 Actual Procedures p Cardioversion - Cristino Levine DO Ordered Studies 01/11/19 08:53 CT cervical spine wo con Stat CT head/brain wo con Stat CT lumbar spine wo con Stat CT thoracic spine wo con Stat Hospital Course (1) Atrial flutter with rapid ventricular response: This is a 58-year-old male who has a significant past medical history of CAD history of PTCA to RCA 05/05 and PTCA to left circumflex 05/06, history of paroxysmal atrial flutter status post cardioversion 01/2010 and 04/2011, T2DM, hyperlipidemia, history of tobacco abuse, alcohol abuse who presents to [facility] ED after sustaining mechanical fall while at work. -Found to be in atrial flutter with RVR in ED, hx of PAF in past requiring cardioversion and anticoagulation. CBC, CMP, TSH relatively unremarkable, pt received IV lopressor in ED , Chadsvasc 3- IV heparin initiated and also was on IV diltiazem drip -ECHO shows no wall motion abnormality no valvular pathology -patient had cardioversion on 01/13/19 and returned to sinus rhythm, patient was transitioned from IV diltiazem to oral diltiazem and transitioned from IV heparin to Eliquis -Follow up (01/18/2019 2:20 PM Provider Citlalli Jones MD Department General Internal Medicine [facility] 01/19/2019 9:00 AM Provider) (Cristino Levine DO Department Cardiology, [facility]) -Prescriptions of Diltiazem 120 mg and Eliquis 5 mg twice a day and acetaminophen sent electronically to [facility] [address] [place] [address], [place] [address] (2) Fall: Pt suffered a mechanical fall while at work falling down 5 steps, landing on bottom and falling head/face first into wall He underwent trauma series of scans including cervical, lumbar, thoracic CT along with a pelvis x-ray shoulder x-ray. No acute fracture or dislocations noted. Cervically he did have disc space narrowing C6-7 and C7-T1 with pos terior disc osteophyte causing mild canal comprise along. Lumbar CT significant for b/l pars defect L5 minimal anterolisthesis L5-S1. -was treated with ice and pain medications for cervical sprain and contusion of left hip -Patient should stop aspirin and ibuprofen at home while on Eliquis Patient may take acetaminophen 325 mg every 8 hours as needed for next 5 days for mild pain Patient may take tramadol 50 mg every 6 hours as need fro moderate to severe pain. Patient should not take tramadol with alcohol. [place] PDMP was checked and patient does not have active prior controlled substance medications this past year prior to this hospital stay (3) Cervical sprain: management as above (4) Contusion of left hip: management as above (5) CAD (coronary artery disease): hx of Stent x 2 (RCA 04' and L circumflex 05') no chest pain, sob troponin WNL ECHO shows not wall motion abnormality (6) T2DM (type 2 diabetes mellitus): Type 2 diabetes mellitus without correction current use of insulin and without complications, -Patient may continue to take metformin for diabetes melltius but given HbA1c of 8.9, patient may need additional diabetes medications as per primary care doctor (7) HTN (hypertension): -initially elevated blood pressure due to pain -blood pressure controlled -no blood pressure medications needed on discharge at this time (8) Alcohol abuse: -pt admits to drinking 3-4 shots of kellen Lora 4 x a week (per epic it says 6-7 shots daily) on presentation -received IV thiamine in ED, ETOH negative AWSS protocol initiated with gabapentin taper and lorazepam prn -no alcohol withdrawal witnessed during hospital stay (9) DVT prophylaxis: Eliquis Discharge instructions Atrial flutter with rapid ventricular response, s/p cardioversion on this admission, anticoagulated by anticoagulation therapy, Type 2 diabetes mellitus without oysterman current use of insulin and without complications, Mechanical Fall, left hip contusion Total Time Total Time Spent Total Time Spent (In Minutes): 40 minutes Total Time Includes: Examination of the Patient, Discharge Planning, Medication Reconciliation and Communication With Other Providers Discharge Plan Discharge Items Patient Disposition: Home - Self-Care Reason For Visit: AFLUTTER W/RVR,FALL Discharge Diagnosis: Atrial flutter with rapid ventricular response, s/p cardioversion on this admission, anticoagulated by anticoagulation therapy, Type 2 diabetes mellitus without correction current use of insulin and without complications, Mechanical Fall, left hip contusion Condition: Good Discharge Goals: Improve disease control Activity: Resume your previous activity Non-emergency contact: Primary Care Provider and Customer Experience Manager Call non-emergency contact if: you have any medication questions Follow-up/Referrals: Ajit Wood DO [Primary Care Provider] - Addtl Provider Instructions: Follow up 01/18/2019 2:20 PM Provider Citlalli Jones MD Department General Internal Medicine [facility] 01/19/2019 9:00 AM Provider Cristino Levine DO Department Cardiology, [facility] Prescriptions of Diltiazem 120 mg and Eliquis 5 mg twice a day and acetaminophen sent electronically to [facility] [address], [place] [address] Patient should stop aspirin and ibuprofen at home while on Eliquis Patient may take acetaminophen 325 mg every 8 hours as needed for next 5 days for mild pain Patient may take tramadol 50 mg every 6 hours as need fro moderate to severe pain. Patient should not take tramadol with alcohol. [place] PDMP was checked and patient does not have active prior controlled substance medications this past year prior to this hospital stay Patient may continue to take metformin for diabetes melltius but given HbA1c of 8.9, patient may need additional diabetes medications as per primary care doctor Prescriptions: New Eliquis 5 mg Tablet 5 mg PO BID 30 Days Qty: 60 RF: 0 diltiazem HCl 120 mg Capsule,Ext.Rel 24h Degradable 120 mg PO QAM 30 Days Qty: 30 RF: 0 acetaminophen 325 mg tablet 325 mg PO Q8H PRN (Reason: mild pain) 5 Days Qty: 15 RF: 0 tramadol 50 mg Tablet 50 mg PO Q6H PRN (Reason: moderate to severe pain) 4 Days Qty: 16 RF: 0 Continued multivitamin Tablet 1 tab PO QAM RF: 0 metformin 1,000 mg Tablet 1,000 mg PO BID RF: 0 zinc 50 mg Tablet 50 mg PO QAM RF: 0 cholecalciferol (vitamin D3) [Vitamin D3] 1,000 unit Capsule 1,000 unit PO QAM RF: 0 omega 0-urg-lik-fish oil [Fish Oil] 1,000 mg (120 mg-180 mg) Capsule 2 cap PO QAM RF: 0 Discontinued aspirin 325 mg Tablet 325 mg PO QAM RF: 0 ibuprofen 600 mg Tablet 600 mg PO TID PRN (Reason: Pain) RF: 0 Stand-Alone Forms: [employer] [facility] [employer] [facility]/Other Patient Handouts: Apixaban Oral tablet Discharge Orders: Discharge Order (Routine); Ordered 01/13/19 Ordered By: Leon Paulino Admission Data Admit Date/Time: 01/11/19 13:18 Attending Provider: Leon Paulino Admit Provider: Kimberly Saleh Primary Care Provider: Ajit Wood. Other Providers: Cristino Levine ; Kimberly Saleh ; Kennedy Oneil Service: Telemetry
[2019-01-15] MEDS ORDERED: GABAPENTIN 600 MG TAB PO SCH (02:00)
== END 2019-01-13 16:41 | disposition home or self-care (01) | DRG 310 ==
LOC: ED 08:39 → SUATTDRO 13:18 → 2S 13:18

== ENCOUNTER 2019-01-13 22:08 | Inpatient (IN) ==
[2019-01-13] MEDS ORDERED: ALBUT/IPRATROP 3MG/0.5MG NEB 3 ML VIAL NEB STA (22:17)
[2019-01-13] MEDS ORDERED: LORazepam 1 MG/2 ML VIAL IV STA (22:22)
[2019-01-13] MEDS ORDERED: LORazepam 2 MG/ML VIAL (IM USE) ONE (22:25)
[2019-01-13 22:37] LABS: Basophils # (auto) 0.03 K/uL (0-0.2); Basophils % (auto) 0.3 %; Eosinophils % (auto) 2.1 %; Hematocrit (blood only) 45.9 % (42-52); Immature Granulocytes # (auto) 0.03 K/uL (0.00-0.02); Immature Granulocytes % (auto) 0.3 %; Lymphocytes # (auto) 2.18 K/uL (1.2-3.4); Lymphocytes % (auto) 23.3 %; Mean Corpuscular Hgb Conc 34.9 g/dL (32-36); Mean Corpuscular Volume 96.4 fL (80-100); Monocytes # (auto) 1.01 K/uL (0.11-0.59); Monocytes % (auto) 10.8 %; Neutrophils # (auto) 5.89 K/uL (1.4-6.5); Neutrophils % (auto) 63.2 %; Platelet Count 166 K/uL (130-400); RDW Coefficient of Variation 12.9 % (11.5-14.5); RDW Standard Deviation 46.3 fL (36.4-46.3); Red Blood Count 4.76 M/uL (4.7-6.1); White Blood Count 9.34 K/uL (4.8-10.8)
[2019-01-13] MEDS ORDERED: NITROGLYCERIN 2% OINTMENT 30GM TUBE EXT STA (22:37)
[2019-01-13] MEDS ORDERED: FUROSEMIDE 40 MG/4 ML VIAL IV STA (22:37)
--- NOTE | 2019-01-13 22:45 | XRay Report ---
SINGLE VIEW CHEST CLINICAL HISTORY: Dyspnea. FINDINGS: 2 AP, portable, upright chest radiographs are compared to study dated 01/11/2019. The examin ation is degraded by portable technique and apical lordotic positioning. The heart is enlarged. Ther e is pulmonary vascular congestion with mild interstitial edema. Trace pleural effusions are suspecte d. There is bibasilar atelectasis. No pneumothorax is seen. The bony thorax is grossly intact. IMPRESSION: 1. Cardiomegaly with evidence of congestive failure and interstitial edema. 2. Suspect trace pleural effusions. Electronically signed by: Clifford Brizuela M.D. 01/13/2019 10:44 PM
[2019-01-13 22:55] LABS: Albumin Level 3.8 gm/dl (3.4-5.0); Creatinine Clr Calc Pharmacy 83.8 ml/min; Est GFR (African American) 71.5; Est GFR (Non-African American) 61.7; Magnesium 2.4 mg/dl (1.8-2.4); Potassium 4.4 mmol/L (3.5-5.1)
[2019-01-13 23:08] LABS: Bilirubin,Total 0.5 mg/dl (0.2-1); Globulin 3.7 gm/dl (2.5-4.0); Total Protein 7.5 gm/dl (6.4-8.2); Troponin I 0.02 ng/ml (0-0.045)
[2019-01-13] MEDS ORDERED: OPTIRAY 320 125ml IV PRN (23:22)
[2019-01-13 23:35] LABS: INR 1.1 (0.9-1.1); Prothrombin Time 10.9 Seconds (9.0-12.0)
[2019-01-14] MEDS ORDERED: PIPERACILLIN/TAZOBACTAM 4.5 GM/120 ML BAG IV ONE (00:59)
[2019-01-14] MEDS ORDERED: PIPERACILL/TAZOBAC CONSULT ACTIVE PRN (00:59)
--- NOTE | 2019-01-14 01:01 | History & Physical Report ---
Date of Service January 14, 2019 Assessment & Plan (1) Acute hypoxemic respiratory failure: Secondary to bronchopneumonia (HCAP) No overt sepsis for now. chronic systolic/diastolic heart failure secondary to ischemic cardiomyopathy (EF 45-50% TTE 2019), patient seems to be euvolemic; normal BNP since fluid retention complaints CAD status post stent hx AFlutter sp cardioversion on Eliquis, sinus tachycardia on the monitor hypertension, patient BP slightly elevated DM 2 on oral medications, suboptimal control as of recent inpatient hemoglobin A1c of 8.9 last December 2018 past tobacco/alcohol abuse PCU Supplemental O2 Baseline ABG Solu-Medrol 1 dose for bronchopneumonia causing hypoxemia IV Zosyn Basal insulin, ISS BG goal 1 40-1 80, carb count coverage DVT prophylaxis. Eliquis Full code Total critical care time was 45 minutes. History of Present Illness Chief Complaint: Cough, shortness of breath Primary Care Provider: Ajit Wood, History obtained from patient, family, and records. Medical history significant for chronic systolic/diastolic heart failure secondary to ischemic cardiomyopathy (EF 45-50% TTE 2018), CAD status post stent, atrial flutter status post cardioversion on Eliquis, hypertension, hyperlipidemia, DM 2 on oral medications, past tobacco/alcohol abuse. Recent confinement 01/11- for atrial flutter w/ RVR. Patient underwent cardioversion yesterday. Subsequently discharged yesterday on Eliquis prescription. At home last night, patient noted cough symptoms productive of junky yellow s putum with increasing shortness of breath. Roommate in the hospital was coughing as per patient's . Patient denies chest pain, aspiration, fever, chills, weight gain. Patient brought to the ER for worsening shortness of breath. Patient given Lasix for possible CHF. 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 Allergies Allergy/AdvReac Type Severity Reaction Status Date / Time codeine Allergy Intermediate GI Verified 01/13/19 23:23 SYMPTOMS and tachycardia morphine Allergy Intermediate GI SYMPTOMS Verified 01/13/19 23:23 Sulfa (Sulfonamide Allergy Unknown unknown Verified 01/13/19 23:23 Antibiotics) Home Medications Home Medications Medication Instructions Recorded Confirmed Type cholecalciferol (vitamin D3) 1,000 unit PO QAM 07/20/18 01/13/19 History [Vitamin D3] metformin 1,000 mg PO BID 07/20/18 01/13/19 History multivitamin 1 tab PO QAM 07/20/18 01/13/19 History omega 4-ats-upn-fish oil [Fish Oil] 2 cap PO QAM 07/20/18 01/13/19 History zinc 50 mg PO QAM 07/20/18 01/13/19 History acetaminophen 325 mg PO Q8H PRN 5 Days #15 tab 01/13/19 01/13/19 Rx apixaban [Eliquis] 5 mg PO BID 30 Days #60 tab 01/13/19 01/13/19 Rx diltiazem HCl 120 mg PO QAM 30 Days #30 cap 01/13/19 01/13/19 Rx tramadol 50 mg PO Q6H PRN 4 Days #16 tab 01/13/19 01/13/19 Rx Past Med/Surg History Medical History CAD (coronary artery disease) Paroxysmal atrial flutter T2DM (type 2 diabetes mellitus) HTN (hypertension) HLD (hyperlipidemia) Alcohol abuse History of tobacco abuse Surgical History History of tonsillectomy and adenoidectomy History of colonoscopy History of heart artery stent RCA 09/03; L circumflex 05/06 Family History Father Coronary heart disease Hypertension Mother Coronary heart disease Brother Diabetes Other No known problems Social History Preferred Language: Gabonese Communication Ability: Effective Scrap Drop Operator Required: No Beliefs That Will Affect Care: None marital status: Current Living Situation: Spouse current occupational status: employed Other Information That Helps Us Care for You: No Feels Safe at Home: Yes Safety Concerns: Feels Safe At This Time Smoking Status: Former smoker Tobacco Type: cigarettes ; Second Hand Exposure: No ; Hx Alcohol Use: Yes Alcohol type: hard liquor Alcohol type Comment: 3-4 shots 4 days a week Alcohol Intake Frequency: Daily Hx Substance Use: No Review of Systems Review of Systems: As per HPI, all 10 systems reviewed, all other ROS negative Physical Exam Physical Exam: GENERAL: slightly uncomfortable, minimal respiratory distress, obese SKIN: Normal color, warm HEENT: Alopecia, pink palpebral conjunctivae, no ptosis, dry buccal mucosa, O2 device in place NECK : Supple, short, no tenderness CHEST : Bilateral rhonchi, occasional wheeze, no tenderness HEART : Tachycardic, no obvious murmurs ABDOMEN: Some distention, nontender EXTREMITIES : No LE swelling/tenderness, no other conspicuous deformities noted NEUROLOGIC : Coherent, no facial asymmetry, no other gross focality Results & Data Vital Signs (Past 12 Hours) Vital Signs Temp Pulse Pulse Resp BP BP Pulse Ox 01/13/19 23:59 104 H 22 94 01/13/19 23:24 116 H 24 131/95 94 01/13/19 22:57 106 H 28 H 94 01/13/19 22:46 88 24 89 L 01/13/19 22:45 110 H 150/90 H 96 01/13/19 22:40 113 H 156/98 H 95 01/13/19 22:31 121 H 87 L 01/13/19 22:20 82 L 01/13/19 22:17 36.9 C 111 H 30 H 167/110 H 82 L 01/13/19 22:13 122 H 167/110 H 90 Laboratory Results Laboratory Results WBC 9.34 K/uL (4.8-10.8) 01/13/19 22:28 RBC 4.76 M/uL (4.7-6.1) 01/13/19 22:28 Hgb 16.0 g/dL (14.0-18.0) 01/13/19 22:28 Hct 45.9 % (42-52) 01/13/19 22:28 MCV 96.4 fL (80-100) 01/13/19 22:28 MCH 33.6 pg (25-34) 01/13/19 22:28 MCHC 34.9 g/dL (32-36) 01/13/19 22:28 RDW Std Deviation 46.3 fL (36.4-46.3) 01/13/19 22:28 RDW Coeff of Mychal 12.9 % (11.5-14.5) 01/13/19 22: Plt Count 166 K/uL (130-400) 01/13/19 22:28 MPV 11.0 fL (7.4-10.4) H 01/13/19 22:28 Immature Gran % (Auto) 0.3 % 01/13/19 22:28 Neut % (Auto) 63.2 % 01/13/19 22:28 Lymph % (Auto) 23.3 % 01/13/19 22:28 [place] % (Auto) 10.8 % 01/13/19: Eos % (Auto) 2.1 % 01/13/19:28 Baso % (Auto) 0.3 % 01/13/19: Immature Gran # (Auto) 0.03 K/uL (0.00-0.02) H 01/13/19 22: Neut # (Auto) 5.89 K/uL (1.4-6.5) 01/13/19: Lymph # (Auto) 2.18 K/uL (1.2-3.4) 01/13/19: [place] # (Auto) 1.01 K/uL (0.11-0.59) H 01/13/19 22:28 Eos # (Auto) 0.20 K/uL (0-0.5) 01/13/19: Baso # (Auto) 0.03 K/uL (0-0.2) 01/13/19: PT 10.9 Seconds (9.0-12.0) 01/13/19 22:55 INR 1.1 (0.9-1.1) 01/13/19 22:55 Sodium 135 mmol/L (136-145) L 01/13/19 22:28 Potassium 4.4 mmol/L (3.5-5.1) D 01/13/19 22:28 Chloride 102 mmol/L (98-107) 01/13/19 22:28 Carbon Dioxide 24 mmol/L (21-32) 01/13/19 22:28 Anion Gap 9.0 (3-11) 01/13/19 22:28 BUN 17 mg/dl (7-18) D 01/13/19 22:28 Creatinine 1.28 mg/dl (0.6-1.4) D 01/13/19 22:28 Est Cr Clr Drug Dosing 83.8 ml/min 01/13/19 22:28 Est GFR ( Amer) 71.5 01/13/19 22:28 Est GFR (Non-Af Amer) 61.7 01/13/19 22: BUN/Creatinine Ratio 13.0 (10-20) 01/13/19 22: Glucose 254 mg/dl (70-99) H 01/13/19 22:28 Calcium 9.0 mg/dl (8.5-10.1) 01/13/19: Magnesium 2.4 mg/dl (1.8-2.4) 01/13/19 22: Total Bilirubin 0.5 mg/dl (0.2-1) 01/13/19 22: AST 52 U/L (15-37) H 01/13/19: ALT 55 U/L (12-78) 01/13/19 22: Alkaline Phosphatase 104 U/L (45-117) 01/13/19 22: Troponin I 0.020 ng/ml (0-0.045) 01/13/19: NT-Pro-B Natriuret Pep 303 pg/ml (0-900) 01/13/19 22: Total Protein 7.5 gm/dl (6.4-8.2) 01/13/19 22: Albumin 3.8 gm/dl (3.4-5.0) 01/13/19 22: Globulin 3.7 gm/dl (2.5-4.0) 01/13/19 22: Albumin/Globulin Ratio 1.0 (0.9-2) 01/13/19 22: Lipase 158 U/L (73-393) 01/13/19 22:[address] chest initial read: No pulmonary embolus. Mediastinal/hilar adenopathy. Cardiomegaly. Small bilateral pleural effusions. Pulmonary edema. Component of pneumonia not excluded. No cavitation. EKG as per my interpretation : rate 110, sinus tachycardia, RAD, T wave flattening lateral leads
[2019-01-14] MEDS ORDERED: INSULIN GLARGINE SOLOSTAR 100 UNITS/ML 3 ML PEN SC STA (01:02)
[2019-01-14 01:39] LABS: Base Excess ABG -0.6 mEq/L (-9-1.8); HCO3 ABG 24 mmol/L (19-24); Oxygen Saturation ABG 99.5 % (90-95); PCO2 ABG 39 mmHg (35-46); PO2 ABG 193 mm/Hg (80-95)
[2019-01-14 01:40] LABS: Allen Test POS (Pos)
[2019-01-14] MEDS ORDERED: PROMETHAZINE HCL 12.5 MG in SODIUM CHLORIDE 0.9% 50 ML IV PRN (02:00)
[2019-01-14] MEDS ORDERED: ACETAMINOPHEN 325 MG TAB PO PRN (02:00)
[2019-01-14] MEDS ORDERED: DEXTROSE 50% 50 ML SYRINGE IV PRN (02:00)
[2019-01-14] MEDS ORDERED: GLUCOSE 10 TABS/TUBE PO PRN (02:00)
[2019-01-14] MEDS ORDERED: CARBOHYDRATES FOR HYPOGLYCEMIA PO PRN (02:00)
[2019-01-14] MEDS ORDERED: GLUCOSE 40% GEL 15 GM TUBE PO PRN (02:00)
[2019-01-14] MEDS ORDERED: XOPENEX/ATROVENT 1.25mg/0.5MG NEB COMBO NEB SCH (02:00)
[2019-01-14] MEDS ORDERED: NITROGLYCERIN SL 0.4 MG/TAB TAB SL PRN (02:00)
[2019-01-14] MEDS ORDERED: GLUCAGON FOR INJ 1 MG VIAL SQ PRN (02:00)
[2019-01-14] MEDS: IPRATROPIUM BROMIDE NEB SOLN 0.02% 2.5 ML VIAL INH SCH ×5 (03:25→19:06)
[2019-01-14] MEDS: LEVALBUTEROL 1.25MG/0.5ML NEB INH SCH ×5 (03:25→19:06)
[2019-01-14] MEDS: INSULIN ASPART 100 UNITS/ML 3 ML PEN SC SCH ×5 (04:08→20:52)
[2019-01-14] MEDS: PIPERACILLIN/TAZOBACTAM 4.5 GM in DEXTROSE 5% 100 ML IV SCH ×3 (05:34→21:17)
[2019-01-14 06:18] LABS: Basophils # (auto) 0.01 K/uL (0-0.2); Basophils % (auto) 0.1 %; Hematocrit (blood only) 43.2 % (42-52); Hemoglobin 14.7 g/dL (14.0-18.0); Immature Granulocytes # (auto) 0.01 K/uL (0.00-0.02); Immature Granulocytes % (auto) 0.1 %; Lymphocytes # (auto) 0.39 K/uL (1.2-3.4); Lymphocytes % (auto) 5.3 %; Mean Corpuscular Volume 96.2 fL (80-100); Mean Platelet Volume 10.7 fL (7.4-10.4); Monocytes # (auto) 0.24 K/uL (0.11-0.59); Monocytes % (auto) 3.3 %; Neutrophils # (auto) 6.71 K/uL (1.4-6.5); Neutrophils % (auto) 91.2 %; Platelet Count 157 K/uL (130-400); RDW Standard Deviation 45.5 fL (36.4-46.3); Red Blood Count 4.49 M/uL (4.7-6.1); White Blood Count 7.36 K/uL (4.8-10.8)
[2019-01-14 06:50] LABS: BUN Creatinine Ratio 11.8 (10-20); Calcium 8.8 mg/dl (8.5-10.1); Creatinine Clr Calc Pharmacy 103.8 ml/min; Est GFR (African American) 94.1; Est GFR (Non-African American) 81.2; Potassium 4.1 mmol/L (3.5-5.1)
[2019-01-14 06:54] LABS: Troponin I 0.021 ng/ml (0-0.045)
--- NOTE | 2019-01-14 06:57 | CT Scan Report ---
CT angio chest PE protocol CLINICAL HISTORY: 58 years-old Male presenting with cardioversion earlier today, history of cardiac p roblems, presenting with shortness of breath. TECHNIQUE: Multidetector CT angiography of the chest was performed after administration of intravenou s contrast. 3-D volumetric and/or maximum intensity projection (MIP) images were subsequently reconst ructed for review. IV contrast: 120 mL of Optiray 320. One or more dose lowering techniques were used consistent with the principles of ALARA (as low as reasonably achievable), including automatic expos ure control, mA or kV adjustment to individual patient size, and/or use of iterative reconstruction. COMPARISON: Chest x-ray performed earlier today. CT DOSE (mGy.cm): The estimated cumulative dose is 854.26 mGy.cm. FINDINGS: Computer Game Tester topogram: Cardiomegaly. Pulmonary vasculature: The study is suboptimal for the assessment of the pulmonary vascular tree secondary to respiratory mo tion artifact. No filling defect within the pulmonary arteries to suggest embolus. Main pulmonary art james is not enlarged. No flattening of the interventricular septum. No intracardiac filling defect. No reflux of contrast into the hepatic veins. Remaining chest: Soft tissues: Normal thyroid and thoracic inlet. Mild body wall edema. Enlarged bilateral hilar and m ediastinal lymph nodes. An index node in the aortopulmonary window measures 13 mm in short axis. Athe rosclerosis of the aorta. Multichamber enlargement of the heart. Coronary artery calcification. Trace bilateral pleural effusions. No pericardial effusion. Upper abdomen normal. Lungs and airways: No pneumothorax. Peribronchial vascular bundle thickening with patent central airw ays. Pulmonary arteries may be minimally increased in size relative to adjacent bronchi. Significant smooth interlobular septal thickening both at the apices and lung bases. Patchy bilateral upper lobe groundglass infiltrates which involve the right middle lobe and lingula to a lesser extent. Extensive dependent groundglass infiltrates in the bilateral lower lobes. Musculoskeletal: Degenerative changes of the spine. IMPRESSION: 1. Cardiomegaly with congestive change and moderate pulmonary edema. Trace bilateral pleural effusio ns. 2. Patchy upper lobe groundglass infiltrates may also represent more limited edema versus less likel y an infectious etiology. 3. No evidence of pulmonary emboli. 4. Mediastinal and bilateral hilar lymphadenopathy. This could potentially relate to venolymphatic c ongestive change. Follow-up is advised to exclude an underlying metastatic or lymphoproliferative shanta ology. Electronically signed by: Gianni Holley M.D. 01/14/2019 6:55 AM
[2019-01-14] MEDS: TRAMADOL HCL 50 MG TABLET PO PRN ×2 (08:34→21:14)
[2019-01-14] MEDS: MULTIVITAMIN TAB PO SCH (08:35)
[2019-01-14] MEDS: APIXABAN 5 MG TABLET PO SCH ×2 (08:35→19:37)
[2019-01-14] MEDS ORDERED: INSULIN GLARGINE SOLOSTAR 100 UNITS/ML 3 ML PEN SQ SCH (09:00)
[2019-01-14] MEDS: FUROSEMIDE 20 MG in SYRINGE 0 ML IV SCH (09:26)
[2019-01-14] MEDS ORDERED: KETOROLAC TROMETHAMINE 15 MG/ML VIAL IV ONE (10:35)
[2019-01-14 10:49] LABS: iSTAT Arterial Blood Gas HCO3 21 meg/L (19-24); iSTAT Arterial Blood Gas pCO2 39 mmHg (35-46); iSTAT Arterial Blood Gas pH 7.35 (7.35-7.45); iSTAT Carbon Dioxide 22 mEq/l (24-31); iSTAT Sample Type Arterial
--- NOTE | 2019-01-14 12:58 | Cardiology Consultation ---
Date of Consultation January 14, 2019 Assessment & Plan (1) Paroxysmal atrial flutter: (2) T2DM (type 2 diabetes mellitus): (3) Acute hypoxemic respiratory failure: (4) HAP (hospital-acquired pneumonia): (5) Pulmonary edema: The patient is maintaining sinus rhythm and I would continue diltiazem and Eliquis. This patient may have developed post cardioversion pulmonary edema from volume overload versus a hospital-acquired pneumonia. I do not believe that he aspirated during the MINAL or cardioversion but this is also a possibility. I would continue the antibiotics. Currently he examines is euvolemic and I do not believe that he will require additional diuretics. We will follow along with you until his hospital discharge. History of Present Illness Attending Physician: Leon Paulino MD History of Present Illness This is a 58-year-old male patient who was admitted after mechanical fall. He was noted in the emergency department to be in atrial flutter with RVR. After he did not spontaneously convert to sinus rhythm we did a MINAL cardioversion yesterday which was successful and the patient was discharged later in the afternoon. He was at home not a few hours and felt short of breath. He also noted a productive cough of greenish-yellow sputum. No fever or chills. He returned to the emergency department where he has been admitted with hospital- acquired pneumonia. Chest x-ray and CT also suggest the possibility of pulmonary edema due to congestive heart failure. Patient was given a dose of IV diuretics and started on antibiotics. Today he states he feels wonderful. His oxygen needs are diminishing. Allergies Allergy/AdvReac Type Severity Reaction Status Date / Time codeine Allergy Intermediate GI Verified 01/13/19 23:23 SYMPTOMS and tachycardia morphine Allergy Intermediate GI SYMPTOMS Verified 01/13/19 23:23 Sulfa (Sulfonamide Allergy Unknown unknown Verified 01/13/19 23:23 Antibiotics) Home Medications Home Medications Medication Instructions Recorded Confirmed Type cholecalciferol (vitamin D3) 1,000 unit PO QAM 07/20/18 01/13/19 History [Vitamin D3] metformin 1,000 mg PO BID 07/20/18 01/13/19 History multivitamin 1 tab PO QAM 07/20/18 01/13/19 History omega 9-rwi-qeq-fish oil [Fish Oil] 2 cap PO QAM 07/20/18 01/13/19 History zinc 50 mg PO QAM 07/20/18 01/13/19 History acetaminophen 325 mg PO Q8H PRN 5 Days #15 tab 01/13/19 01/13/19 Rx apixaban [Eliquis] 5 mg PO BID 30 Days #60 tab 01/13/19 01/13/19 Rx diltiazem HCl 120 mg PO QAM 30 Days #30 cap 01/13/19 01/13/19 Rx tramadol 50 mg PO Q6H PRN 4 Days #16 tab 01/13/19 01/13/19 Rx Patient History Medical History CAD (coronary artery disease) Paroxysmal atrial flutter T2DM (type 2 diabetes mellitus) HTN (hypertension) HLD (hyperlipidemia) Alcohol abuse History of tobacco abuse Surgical History History of tonsillectomy and adenoidectomy History of colonoscopy History of heart artery stent RCA 09/03; L circumflex 05/06 Family History Father Coronary heart disease Hypertension Mother Coronary heart disease Brother Diabetes Other No known problems Social History Preferred Language: Hungarian Communication Ability: Effective Drying Equipment Operator Required: No Beliefs That Will Affect Care: None marital status: Current Living Situation: Spouse current occupational status: employed Other Information That Helps Us Care for You: No Feels Safe at Home: Yes Safety Concerns: Feels Safe At This Time Smoking Status: Former smoker Tobacco Type: cigarettes ; Second Hand Exposure: No ; Hx Alcohol Use: Yes Alcohol type: hard liquor Alcohol type Comment: 3-4 shots 4 days a week Alcohol Intake Frequency: Daily Hx Substance Use: No Review of Systems Review of Systems: All systems reviewed & are unremarkable except as noted in HPI & below Nothing additional to add. Physical Exam Physical Exam: General: no acute distress and stated age Head: normocephalic, no masses, lesions, tenderness or abnormalities Eyes: conjunctiva are pink and non-injected, sclera clear Neck: supple, no adenopathy, no bruits, normal jugular venous pulse, no hepatojugular reflux Chest: normal shape and normal respiratory effort Lungs: clear to auscultation and percussion Cardiac Exam: - regular rate & rhythm, no murmurs gallops or rubs - normal S1, normal S2 Pulses: 2(+) throughout Abdomen: abdomen soft, non-tender, no abnormal masses and no hepatosplenomegaly Musculoskeletal: no gait disturbance, no joint inflammation, no deforming arthritis Extremities: no edema and no cyanosis Neuro: grossly normal exam Results & Data Vital Signs (Past 12 Hours) Vital Signs Temp Pulse Pulse Resp BP BP Pulse Ox 01/14/19 12:49 36.8 C 92 H 20 114/72 92 01/14/19 08:03 36.8 C 98 H 19 120/74 95 01/14/19 08:00 103 H 01/14/19 06:56 95 H 16 97 01/14/19 03:57 36.4 C L 97 H 20 116/73 97 01/14/19 03:51 96 H 22 96 01/14/19 03:33 98 H 22 97 01/14/19 03:09 103 H 01/14/19 02:01 104 H 22 98 01/14/19 02:00 01/14/19 01:55 37.1 C 104 H 22 127/79 100 01/14/19 01:39 109 H 20 155/95 H 99 01/14/19 01:32 109 H 20 155/95 H 99 Pulse Ox 01/14/19 12:49 01/14/19 08:03 01/14/19 08:00 01/14/19 06:56 01/14/19 03:57 01/14/19 03:51 01/14/19 03:33 01/14/19 03:09 01/14/19 02:01 01/14/19 02:00 99 01/14/19 01:55 01/14/19 01:39 01/14/19 01:32 Laboratory Results Laboratory Results - last 24 hr 01/13/19 01/13/19 01/13/19 22:28 22:28 22:28 WBC 9.34 RBC 4.76 Hgb 16.0 Hct 45.9 MCV 96.4 MCH 33.6 MCHC 34.9 RDW Std Deviation 46.3 RDW Coeff of Mychal 12.9 Plt Count 166 MPV 11.0 H Immature Gran % (Auto) 0.3 Neut % (Auto) 63.2 Lymph % (Auto) 23.3 [place] % (Auto) 10.8 Eos % (Auto) 2.1 Baso % (Auto) 0.3 Immature Gran # (Auto) 0.03 H Neut # (Auto) 5.89 Lymph # (Auto) 2.18 [place] # (Auto) 1.01 H Eos # (Auto) 0.20 Baso # (Auto) 0.03 PT Cancelled INR Cancelled Specimen Type POC pH POC pCO2 POC pO2 POC HCO3 POC Total CO2 POC Base Excess ABG pH ABG pCO2 ABG pO2 ABG HCO3 POC ABG O2 Sat ABG O2 Saturation ABG Base Excess [place] Test Barometric Pressure Oxygen Given Sodium 135 L Potassium 4.4 D Chloride 102 Carbon Dioxide 24 Anion Gap 9.0 BUN 17 D Creatinine 1.28 D Est Cr Clr Drug Dosing 83.8 Est GFR ( Amer) 71.5 Est GFR (Non-Af Amer) 61.7 BUN/Creatinine Ratio 13.0 Glucose 254 H POC Glucose Lactate Calcium 9.0 Magnesium 2.4 Total Bilirubin 0.5 AST 52 H ALT 55 Alkaline Phosphatase 104 Troponin I 0.020 NT-Pro-B Natriuret Pep 303 Total Protein 7.5 Albumin 3.8 Globulin 3.7 Albumin/Globulin Ratio 1.0 Lipase 158 01/13/19 01/13/19 01/14/19 22:31 22:55 01:14 WBC RBC Hgb Hct MCV MCH MCHC RDW Std Deviation RDW Coeff of Mychal Plt Count MPV Immature Gran % (Auto) Neut % (Auto) Lymph % (Auto) [place] % (Auto) Eos % (Auto) Baso % (Auto) Immature Gran # (Auto) Neut # (Auto) Lymph # (Auto) [place] # (Auto) Eos # (Auto) Baso # (Auto) PT 10.9 INR 1.1 Specimen Type Arterial POC pH 7.35 POC pCO2 39 POC pO2 65 L POC HCO3 21 POC Total CO2 22 L POC Base Excess -4.0 ABG pH ABG pCO2 ABG pO2 ABG HCO3 POC ABG O2 Sat 91.0 ABG O2 Saturation ABG Base Excess [place] Test Barometric Pressure Oxygen Given Sodium Potassium Chloride Carbon Dioxide Anion Gap BUN Creatinine Est Cr Clr Drug Dosing Est GFR ( Amer) Est GFR (Non-Af Amer) BUN/Creatinine Ratio Glucose POC Glucose Lactate 1.7 Calcium Magnesium Total Bilirubin AST ALT Alkaline Phosphatase Troponin I NT-Pro-B Natriuret Pep Total Protein Albumin Globulin Albumin/Globulin Ratio Lipase 01/14/19 01/14/19 01/14/19 01:24 04:08 05:57 WBC 7.36 RBC 4.49 L Hgb 14.7 Hct 43.2 MCV 96.2 MCH 32.7 MCHC 34.0 RDW Std Deviation 45.5 RDW Coeff of Mychal 13.0 Plt Count 157 MPV 10.7 H Immature Gran % (Auto) 0.1 Neut % (Auto) 91.2 Lymph % (Auto) 5.3 [place] % (Auto) 3.3 Eos % (Auto) 0.0 Baso % (Auto) 0.1 Immature Gran # (Auto) 0.01 Neut # (Auto) 6.71 H Lymph # (Auto) 0.39 L [place] # (Auto) 0.24 Eos # (Auto) 0.00 Baso # (Auto) 0.01 PT INR Specimen Type POC pH POC pCO2 POC pO2 POC HCO3 POC Total CO2 POC Base Excess ABG pH 7.40 ABG pCO2 39 ABG pO2 193 H ABG HCO3 24 POC ABG O2 Sat ABG O2 Saturation 99.5 H ABG Base Excess -0.6 [place] Test POS Barometric Pressure 731.3 Oxygen Given 40% Sodium Potassium Chloride Carbon Dioxide Anion Gap BUN Creatinine Est Cr Clr Drug Dosing Est GFR ( Amer) Est GFR (Non-Af Amer) BUN/Creatinine Ratio Glucose POC Glucose 233 H Lactate Calcium Magnesium Total Bilirubin AST ALT Alkaline Phosphatase Troponin I NT-Pro-B Natriuret Pep Total Protein Albumin Globulin Albumin/Globulin Ratio Lipase 01/14/19 01/14/19 01/14/19 05:57 07:32 11:20 WBC RBC Hgb Hct MCV MCH MCHC RDW Std Deviation RDW Coeff of Mychal Plt Count MPV Immature Gran % (Auto) Neut % (Auto) Lymph % (Auto) [place] % (Auto) Eos % (Auto) Baso % (Auto) Immature Gran # (Auto) Neut # (Auto) Lymph # (Auto) [place] # (Auto) Eos # (Auto) Baso # (Auto) PT INR Specimen Type POC pH POC pCO2 POC pO2 POC HCO3 POC Total CO2 POC Base Excess ABG pH ABG pCO2 ABG pO2 ABG HCO3 POC ABG O2 Sat ABG O2 Saturation ABG Base Excess [place] Test Barometric Pressure Oxygen Given Sodium 138 Potassium 4.1 Chloride 103 Carbon Dioxide 29 Anion Gap 5.0 BUN 12 Creatinine 1.02 Est Cr Clr Drug Dosing 103.8 Est GFR ( Amer) 94.1 Est GFR (Non-Af Amer) 81.2 BUN/Creatinine Ratio 11.8 Glucose 210 H POC Glucose 197 H 247 H Lactate Calcium 8.8 Magnesium Total Bilirubin AST ALT Alkaline Phosphatase Troponin I 0.021 NT-Pro-B Natriuret Pep Total Protein Albumin Globulin Albumin/Globulin Ratio Lipase Medications Administered Current Inpatient Medications Acetaminophen (Tylenol) 650 mg PO Q4H PRN PRN Reason: Pain or Fever Stop: 02/13/19 01:59 Apixaban (Eliquis) 5 mg PO BID [facility] Stop: 02/13/19 08:59 Last Admin: 01/14/19 08:35 Dose: 5 mg Documented by: Dextrose (Dextrose 50%) 25 - 50 ml IV UD PRN; Protocol PRN Reason: Hypoglycemia Protocol Stop: 02/13/19 01:59 Diltiazem HCl (Dilacor Xr) 120 mg PO QAM [facility] Stop: 02/13/19 01:59 Last Admin: 01/14/19 04:04 Dose: 120 mg Documented by: Glucagon (Glucagen) 1 mg SQ UD PRN; Protocol PRN Reason: Hypoglycemia Protocol Stop: 02/13/19 01:59 Glucose (Dex4 Glucose) 4 - 8 tabs PO UD PRN; Protocol PRN Reason: Hypoglycemia Protocol Stop: 02/13/19 01:59 Glucose (Glucose 40%) 15 - 30 gm PO UD PRN; Protocol PRN Reason: Hypoglycemia Protocol Stop: 02/13/19 01:59 Promethazine HCl 12.5 mg/ (Sodium Chloride) 50.5 mls @ 202 mls/hr IV Q6H PRN PRN Reason: Nausea And Vomiting Stop: 02/13/19 01:59 Piperacillin Sod/Tazobactam (Sod 4.5 gm/ Dextrose) 120 mls @ 30 mls/hr IV Q8H BRITTANI; Protocol Stop: 01/21/19 05:59 Last Infusion: 01/14/19 09:36 Dose: Infused Documented by: Furosemide 20 mg/ Syringe 2 mls @ 4 mls/min IV DAILY [facility] Stop: 02/13/19 08:59 Last Admin: 01/14/19 09:26 Dose: 4 mls/min Documented by: Insulin Aspart (Novolog Flexpen) 0 units SC ACHS [facility] Stop: 02/13/19 02:29 Last Admin: 01/14/19 12:42 Dose: 5 units Documented by: Insulin Glargine (Lantus Solostar Pen) 30 units SQ BID [facility] Stop: 02/13/19 08:59 Last Admin: 01/14/19 08:39 Dose: 30 units Documented by: Ipratropium [place] (Atrovent 0.02% 0.5mg/2.5ml) 0.5 mg INH Q6R [facility] Stop: 02/13/19 01:59 Last Admin: 01/14/19 07:34 Dose: 0.5 mg Documented by: Levalbuterol HCl (Xopenex 1.25mg/0.5ml Neb) 1.25 mg INH Q6R [facility] Stop: 02/13/19 01:59 Last Admin: 01/14/19 06:55 Dose: 1.25 mg Documented by: Miscellaneous (Carbohydrates For Hypoglycemia) 15 - 30 gm PO UD PRN PRN Reason: Hypoglycemia Treatment Stop: 02/13/19 01:59 Miscellaneous Information (Consult) 1 ea N/A UD PRN PRN Reason: Consult Stop: 02/13/19 00:58 Multivitamins (Multivitamin Tab) 1 tab PO QAM [facility] Stop: 02/13/19 08:59 Last Admin: 01/14/19 08:35 Dose: 1 tab Documented by: Nitroglycerin (Nitrostat) 0.4 mg SL UD PRN PRN Reason: Chest Pain Stop: 02/13/19 01:59 Tramadol HCl (Ultram) 50 mg PO Q6H PRN PRN Reason: moderate to severe pain Stop: 02/13/19 01:59 Last Admin: 01/14/19 08:34 Dose: 50 mg Documented by: (1) Pulmonary edema Chronicity: acute Qualified Code(s): J81.0 - Acute pulmonary edema
[2019-01-14] MEDS ORDERED: FUROSEMIDE 20 MG in SYRINGE 0 ML IV ONE (17:00)
--- NOTE | 2019-01-14 17:34 | Hospitalist Progress Note ---
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 Cardiomegaly with congestive change and moderate pulmonary edema. Trace bilateral pleural effusions. 2. Patchy upper lobe groundglass infiltrates may also represent more limited edema versus less likely an infectious etiology. 3. No evidence of pulmonary emboli. 4. Mediastinal and bilateral hilar lymphadenopathy. This could potentially relate to venolymphatic congestive change. -patient may have developed post cardioversion pulmonary edema from volume overload versus a hospital-acquired pneumonia. -continue Zosyn as started by admitting hospitalist, follow up blood cultures - currently normal white blood cell counts and no fever -patient received Lasix 40 mg IV in the ED, patient received 20 mg IV Lasix BID on 01/14/19 -overall patient's supplementary oxygen requirements decreased today, continue to try to titrate to room air -patient encouraged to use incentive spirometer and ambulation Paroxysmal atrial flutter CAD (coronary artery disease): hx of Stent x 2 (RCA 04' and L circumflex 05') -had cardioversion on 01/13/19 AM -remains in sinus rhythm Previous history of mechanical fall with cervical sprain and left hip contusion -prn acetaminophen and prn tramadol Type 2 diabetes mellitus without senior care current use of insulin and without complications, - HbA1c of 8.9 -hold home dose metformin -patient received IV steroids in the ED and got additional doses of Lantus -while in the hospital, use sliding scale insulin and plan for Lantus 10 unts daily starting on 01/14/19 Alcohol use -no evidence of alcohol withdrawal on previous hospitalization -but will start gabapentin withdrawal protocol as precaution DVT prophylaxis: -Eliquis Subjective overall patient's supplementary oxygen requirements decreased today, continue to try to titrate to room air patient encouraged to use incentive spirometer and ambulation no chest pain. no palpitations. breathing is improved. no headache. no dizziness. no fever Physical Exam Constitutional: comfortable Eyes: PERRL, conjunctivae normal, anicteric sclerae EOM intact bilaterally ENMT: external ear and nose normal, oropharynx normal Neck: trachea midline, no thyromegaly Respiratory: normal respiratory effort Gastrointestinal (Abdomen): normal bowel sounds, soft, nontender, no hepatosplenomegaly Musculoskeletal: Head/Neck/Chest: normocephalic and head atraumatic Neurologic: PERRL, EOMI, accommodation nl, no face palsy, no dysarthria CN's II-XI intact bilaterally Psychiatric: A+Ox3, euthymic affect Results & Data Vital Signs (Past 12 Hours) Vital Signs Temp Pulse Pulse Resp BP Pulse Ox 01/14/19 15:43 36.7 C 108 H 20 121/65 95 01/14/19 13:11 84 14 96 01/14/19 12:49 36.8 C 92 H 20 114/72 92 01/14/19 08:03 36.8 C 98 H 19 120/74 95 01/14/19 08:00 103 H 01/14/19 06:56 95 H 16 97
[2019-01-14] MEDS ORDERED: GABAPENTIN 1200MG ALCOHOL WITHDRAWAL LOAD PO STA (17:51)
[2019-01-14] MEDS ORDERED: GABAPENTIN 600 MG TAB PO SCH (18:00)
[2019-01-14] MEDS: GABAPENTIN 600 MG TAB PO SCH (22:33)
--- NOTE | 2019-01-15 00:43 | Emergency Department Note ---
Entered by Trevor Merritt acting as a scribe for Lisa Villafana DO History of Present Illness General Chief complaint: Respiratory Problems Stated complaint: CAN'T BREATH, HAD HEART SHOCKED Time Seen by Provider: 01/13/19 22:14 Source: patient and family () Limitations: no limitations History of Present Illness Onset (ago): minute(s) (13) Location: chest Severity: severe Pain Consistency: + constant Exacerbated By: + other (ECHO) Associated symptoms: + cough The patient is a 58 year old male who presents to the Emergency Room with complaints of constant and severe SOB starting 13 minutes ago. The patient had an ECHO done earlier today. He states he was told he had A-Fib and it was not new. He notes he used to take blood thinners years ago but stopped. He states he was given blood thinners today and was told to start taking them. The patient's states they were on their way home when the patient started coughing. She states 30 minutes after he started coughing he stated he could not breathe. He notes he had 2 stents put in. He states he never had to be admitted for breathing problems. He states he was never told he had CHF. He states he does not smoke anymore. Home Medications Home Medications Medication Instructions Recorded Confirmed Type cholecalciferol (vitamin D3) 1,000 unit PO QAM 07/20/18 01/13/19 History [Vitamin D3] metformin 1,000 mg PO BID 07/20/18 01/13/19 History multivitamin 1 tab PO QAM 07/20/18 01/13/19 History omega 3-[id number]-kly-fish oil [Fish Oil] 2 cap PO QAM 07/20/18 01/13/19 History zinc 50 mg PO QAM 07/20/18 01/13/19 History acetaminophen 325 mg PO Q8H PRN 5 Days #15 tab 01/13/19 01/13/19 Rx apixaban [Eliquis] 5 mg PO BID 30 Days #60 tab 01/13/19 01/13/19 Rx diltiazem HCl 120 mg PO QAM 30 Days #30 cap 01/13/19 01/13/19 Rx tramadol 50 mg PO Q6H PRN 4 Days #16 tab 01/13/19 01/13/19 Rx Allergies Allergy/AdvReac Type Severity Reaction Status Date / Time codeine Allergy Intermediate GI Verified 01/13/19 23:23 SYMPTOMS and tachycardia morphine Allergy Intermediate GI SYMPTOMS Verified 01/13/19 23:23 Sulfa (Sulfonamide Allergy Unknown unknown Verified 01/13/19 23:23 Antibiotics) Past Med/Surg History Medical History CAD (coronary artery disease) Paroxysmal atrial flutter T2DM (type 2 diabetes mellitus) HTN (hypertension) HLD (hyperlipidemia) Alcohol abuse History of tobacco abuse Surgical History History of tonsillectomy and adenoidectomy History of colonoscopy History of heart artery stent RCA 09/03; L circumflex 05/06 Family History Father Coronary heart disease Hypertension Mother Coronary heart disease Brother Diabetes Other No known problems Social History Preferred Language: Burkinan Communication Ability: Effective Stars Coordinator Required: No Beliefs That Will Affect Care: None marital status: Current Living Situation: Spouse current occupational status: employed Other Information That Helps Us Care for You: No Feels Safe at Home: Yes Safety Concerns: Feels Safe At This Time Smoking Status: Former smoker Tobacco Type: cigarettes ; Second Hand Exposure: No ; Hx Alcohol Use: Yes Alcohol type: hard liquor Alcohol type Comment: 3-4 shots 4 days a week Alcohol Intake Frequency: Daily Hx Substance Use: No Review of Systems See HPI for pertinent positives & negatives. and A total of 10 systems reviewed and were otherwise negative Physical Exam Vital Signs Vital Signs - 24 hr 01/13/19 22:13 01/13/19 22:17 01/13/19 22:20 Temperature 98.4 F Temperature Source Oral Sepsis Recent Fever Within 48 Hours No Sepsis Action Taken by Nursing No Action Required Oxygen Flow Rate - Titration 15 Pulse Oximetry Post Tiitration 92 Pulse Rate 122 H 111 H Pulse Rate [Right Apical] Pulse Rate from SpO2 Sensor 122 H Respiratory Rate 30 H Respiratory Effort / Characteristics Labored Respiratory Depth Blood Pressure 167/110 H 167/110 H Blood Pressure [Left Arm] Blood Pressure Mean 129 129 Blood Pressure Mean [Left Arm] Pulse Oximetry 90 82 L 82 L Oxygen Delivery Method Room Air Room Air Oxygen Flow Rate Fraction of Inspired Oxygen SaO2/FiO2 Ratio 01/13/19 22:31 01/13/19 22:40 01/13/19 22:45 Temperature Temperature Source Sepsis Recent Fever Within 48 Hours Sepsis Action Taken by Nursing Oxygen Flow Rate - Titration Pulse Oximetry Post Tiitration Pulse Rate 121 H 113 H 110 H Pulse Rate [Right Apical] Pulse Rate from SpO2 Sensor 115 H 113 H 112 H Respiratory Rate Respiratory Effort / Characteristics Respiratory Depth Blood Pressure 156/98 H 150/90 H Blood Pressure [Left Arm] Blood Pressure Mean 117 110 Blood Pressure Mean [Left Arm] Pulse Oximetry 87 L 95 96 Oxygen Delivery Method Nasal Cannula High Flow Nasal Cannula High Flow Nasal Cannula Oxygen Flow Rate 6 40 40 Fraction of Inspired Oxygen SaO2/FiO2 Ratio 01/13/19 22:46 01/13/19 22:57 01/13/19 23:24 Temperature Temperature Source Sepsis Recent Fever Within 48 Hours Sepsis Action Taken by Nursing Oxygen Flow Rate - Titration Pulse Oximetry Post Tiitration Pulse Rate Pulse Rate [Right Apical] 88 106 H 116 H Pulse Rate from SpO2 Sensor Respiratory Rate 24 28 H 24 Respiratory Effort / Characteristics Non-Labored Spontaneous Short of Breath Spontaneous Labored Non-Labored Spontaneous Respiratory Depth Normal Blood Pressure Blood Pressure [Left Arm] 131/95 Blood Pressure Mean Blood Pressure Mean [Left Arm] 107 Pulse Oximetry 89 L 94 94 Oxygen Delivery Method Nasal Cannula High Flow Nasal Cannula High Flow Nasal Cannula Oxygen Flow Rate 6 100 Fraction of Inspired Oxygen 40 30 SaO2/FiO2 Ratio 313 01/13/19 23:59 Temperature Temperature Source Sepsis Recent Fever Within 48 Hours Sepsis Action Taken by Nursing Oxygen Flow Rate - Titration Pulse Oximetry Post Tiitration Pulse Rate Pulse Rate [Right Apical] 104 H Pulse Rate from SpO2 Sensor Respiratory Rate 22 Respiratory Effort / Characteristics Non-Labored Respiratory Depth Blood Pressure Blood Pressure [Left Arm] Blood Pressure Mean Blood Pressure Mean [Left Arm] Pulse Oximetry 94 Oxygen Delivery Method High Flow Nasal Cannula Oxygen Flow Rate 40 Fraction of Inspired Oxygen 100 SaO2/FiO2 Ratio GENERAL: alert, well nourished, severe distress, non-toxic. Diaphoretic. Hypoxic. Tachypneic. Speaks in short phrases. EYE EXAM: normal conjunctiva, PERRL and EOM's grossly intact OROPHARYNX: no exudate, no erythema, lips, buccal mucosa, and tongue normal and mucous membranes are moist NECK: supple, no nuchal rigidity, no adenopathy, non-tender LUNGS: Clear to auscultation. Normal chest wall mechanics. Decreased breath sounds. No wheezes, rhonchi or rales. HEART: no murmurs, S1 normal and S2 normal ABDOMEN: abdomen soft, non-tender, normo-active bowel sounds, no masses, no rebound or guarding. BACK: Back is symmetrical on inspection and there is no deformity, no midline tenderness, no CVA tenderness. SKIN: no rashes and no bruising UPPER EXTREMITIES: upper extremities are grossly normal. FROM, nml pulses b/l. LOWER EXTREMITIES: No pitting edema. FROM, nml pulses b/l. NEURO EXAM: Normal sensorium, cranial nerves II-XII grossly intact, normal speech, no gross weakness of arms, no gross weakness of legs. Course 3: The patient was evaluated in room B1, and a complete history and physical examination were performed. 2222: The patient's O2 Sat dropped down to 84 without oxygen. Patient stating he feels claustrophobic on a nonrebreather, was changed to ax oxymask however after several minutes was unable to tolerate this also and asked to be placed on nasal cannula. 2230: Repeat lung exam after nebulizer treatment: Rales bilaterally. Patient changed to Vapotherm and additional orders added. 2238: EMR was reviewed. He had an ECHO done on January 12. EF 45-50%. 2306: I reevaluated the patient. His HR is down to 103. His O2 is 99 on Vapotherm. He states he feels much better. He still has bilateral rales. 0011: I discussed the patient's case with Dr. Kong [facility] Hospitalist. He will evaluate the patient for further management Administered Medications Apixaban (Eliquis) 5 mg PO BID [facility] Stop: 02/13/19 08:59 Last Admin: 01/14/19 19:37 Dose: 5 mg Documented by: [id number] Admin: 01/14/19 08:35 Dose: 5 mg Documented by: [id number] Diltiazem HCl (Dilacor Xr) 120 mg PO QAM [facility]ITTANI Stop: 02/13/19 01:59 Last Admin: 01/14/19 04:04 Dose: 120 mg Documented by: [id number] Gabapentin (Neurontin) 600 mg PO Q6H BRITTANI Stop: 01/15/19 06:01 Last Admin: 01/14/19 22:33 Dose: Not Given Documented by: [id number] Piperacillin Sod/Tazobactam (Sod 4.5 gm/ Dextrose) 120 mls @ 30 mls/hr IV Q8H [facility]; Protocol Stop: 01/21/19 05:59 Last Admin: 01/14/19 21:17 Dose: 30 mls/hr Documented by: [id number] Infusion: 01/14/19 19:13 Dose: 0 mls/hr Documented by: [id number] Admin: 01/14/19 14:45 Dose: 30 mls/hr Documented by: [id number] Infusion: 01/14/19 09:36 Dose: 0 mls/hr Documented by: [id number] Admin: 01/14/19 05:34 Dose: 30 mls/hr Documented by: [id number] Furosemide 20 mg/ Syringe 2 mls @ 4 mls/min IV DAILY [facility] Stop: 02/13/19 08:59 Last Admin: 01/14/19 09:26 Dose: 4 mls/min Documented by: [id number] Insulin Aspart (Novolog Flexpen) 0 units SC ACHS [facility] Stop: 02/13/19 02:29 Last Admin: 01/14/19 20:52 Dose: 1 units Documented by: [id number] Cosigned by: [id number] Admin: 01/14/19 17:24 Dose: 7 units Documented by: [id number] Cosigned by: [id number] Admin: 01/14/19 12:42 Dose: 5 units Documented by: [id number] Cosigned by: [id number] Admin: 01/14/19 08:38 Dose: 3 units Documented by: [id number] Cosigned by: [id number] Admin: 01/14/19 04:08 Dose: 3 units Documented by: [id number] Cosigned by: [id number] Ipratropium [place] (Atrovent 0.02% 0.5mg/2.5ml) 0.5 mg INH Q6R [facility] Stop: 02/13/19 01:59 Last Admin: 01/14/19 19:06 Dose: 0.5 mg Documented by: [id number] Admin: 01/14/19 13:11 Dose: 0.5 mg Documented by: [id number] Admin: 01/14/19 07:34 Dose: 0.5 mg Documented by: [id number] Admin: 01/14/19 03:35 Dose: 0.5 mg Documented by: [id number] Levalbuterol HCl (Xopenex 1.25mg/0.5ml Neb) 1.25 mg INH Q6R [facility] Stop: 02/13/19 01:59 Last Admin: 01/14/19 19:06 Dose: 1.25 mg Documented by: [id number] Admin: 01/14/19 13:11 Dose: 1.25 mg Documented by: [id number] Admin: 01/14/19 06:55 Dose: 1.25 mg Documented by: [id number] Admin: 01/14/19 03:35 Dose: 1.25 mg Documented by: [id number] Multivitamins (Multivitamin Tab) 1 tab PO QAM BRITTANI Stop: 02/13/19 08:59 Last Admin: 01/14/19 08:35 Dose: 1 tab Documented by: [id number] Tramadol HCl (Ultram) 50 mg PO Q6H PRN PRN Reason: moderate to severe pain Stop: 02/13/19 01:59 Last Admin: 01/14/19 21:14 Dose: 50 mg Documented by: [id number] Admin: 01/14/19 08:34 Dose: 50 mg Documented by: [id number] Discontinued Medications Albuterol (Duoneb) 3 ml NEB NOW STA Stop: 01/13/19 22:18 Last Admin: 01/13/19 22:26 Dose: 3 ml Documented by: [id number] Furosemide (Lasix) 40 mg IV NOW STA Stop: 01/13/19 22:38 Last Admin: 01/13/19 22:48 Dose: 40 mg Documented by: [id number] Gabapentin (Neurontin) 1,200 mg PO TODAY@1800 [facility] Stop: 01/14/19 18:01 Last Admin: 01/14/19 19:37 Dose: Not Given Documented by: [id number] Lorazepam (Ativan) 1 mg in 2 mls @ 0.5 mls/min IV NOW STA Stop: 01/13/19 22:25 Last Admin: 01/13/19 22:26 Dose: 0.5 mls/min Documented by: [id number] Piperacillin Sod/Tazobactam Sod (Zosyn) 4.5 gm in 120 mls @ 240 mls/hr IV NOW ONE Stop: 01/14/19 01:28 Last Infusion: 01/14/19 02:19 Dose: 0 mls/hr Documented by: [id number] Admin: 01/14/19 01:31 Dose: 240 mls/hr Documented by: [id number] Furosemide 20 mg/ Syringe 2 mls @ 4 mls/min IV ONE ONE Stop: 01/14/19 17:01 Last Admin: 01/14/19 17:23 Dose: 4 mls/min Documented by: [id number] Insulin Glargine (Lantus Solostar Pen) 30 units SC NOW STA Stop: 01/14/19 01:03 Last Admin: 01/14/19 01:37 Dose: 30 units Documented by: [id number] Cosigned by: [id number] Insulin Glargine (Lantus Solostar Pen) 30 units SQ BID BRITT[facility] Stop: 02/13/19 08:59 Last Admin: 01/14/19 08:39 Dose: 30 units Documented by: [id number] Cosigned by: [id number] Ioversol (Optiray 320 125ml) 120 ml IV ONCE PRN PRN Reason: Interaction Checking Stop: 01/17/19 23:21 Last Admin: 01/13/19 23:23 Dose: 1 ml Documented by: [id number] Ketorolac Tromethamine (Toradol) 10 mg IV NOW ONE Stop: 01/14/19 10:36 Last Admin: 01/14/19 11:00 Dose: 10 mg Documented by: [id number] Lorazepam (Ativan) Confirm Administered Dose 2 mg .ROUTE .STK-MED ONE Stop: 01/13/19 22:26 Last Admin: 01/13/19 22:49 Dose: Not Given Documented by: [id number] Methylprednisolone (Solumedrol) 20 mg IV NOW STA Stop: 01/14/19 01:00 Last Admin: 01/14/19 01:30 Dose: 20 mg Documented by: [id number] Nitroglycerin (Nitro-Bid 2%) 1 inch EXT NOW STA Stop: 01/13/19 22:38 Last Admin: 01/13/19 22:48 Dose: 1 inch Documented by: [id number] Medical Decision Making Differential Diagnosis Differential diagnoses includes but is not limited to pneumonia, bronchitis, COPD/Asthma exacerbation, pneumothorax, pulmonary embolism, congestive heart failure, acute coronary syndrome. Medical Records Attestation: I reviewed the patient's medical records. Home Medications Current Medication List: was personally reviewed by me Laboratory Data Attestation: I reviewed the patient's lab results. Result diagrams: 01/14/19 05:57 01/14/19 05:57 Lab Results 01/13/19 01/13/19 01/13/19 Range/Units 22:28 22:28 22:28 WBC 9.34 (4.8-10.8) K/uL RBC 4.76 (4.7-6.1) M/uL Hgb 16.0 (14.0-18.0) g/dL Hct 45.9 (42-52) % MCV 96.4 (80-100) fL MCH 33.6 (25-34) pg MCHC 34.9 (32-36) g/dL RDW Std Deviation 46.3 (36.4-46.3) fL RDW Coeff of Mychal 12.9 (11.5-14.5) % Plt Count 166 (130-400) K/uL MPV 11.0 H (7.4-10.4) fL Immature Gran % (Auto) 0.3 % Neut % (Auto) 63.2 % Lymph % (Auto) 23.3 % [place] % (Auto) 10.8 % Eos % (Auto) 2.1 % Baso % (Auto) 0.3 % Immature Gran # (Auto) 0.03 H (0.00-0.02) K/uL Neut # (Auto) 5.89 (1.4-6.5) K/uL Lymph # (Auto) 2.18 (1.2-3.4) K/uL [place] # (Auto) 1.01 H (0.11-0.59) K/uL Eos # (Auto) 0.20 (0-0.5) K/uL Baso # (Auto) 0.03 (0-0.2) K/uL PT Cancelled INR Cancelled Specimen Type POC pH (7.35-7.45) POC pCO2 (35-46) mmHg POC pO2 (80-95) mmHg POC HCO3 (19-24) esa/L POC Total CO2 (24-31) mEq/l POC Base Excess (-9-1.8) esa/L POC ABG O2 Sat (90-95) % Sodium 135 L (136-145) mmol/L Potassium 4.4 D (3.5-5.1) mmol/L Chloride 102 (98-107) mmol/L Carbon Dioxide 24 (21-32) mmol/L Anion Gap 9.0 (3-11) BUN 17 D (7-18) mg/dl Creatinine 1.28 D (0.6-1.4) mg/dl Est Cr Clr Drug Dosing 83.8 ml/min Est GFR ( Amer) 71.5 Est GFR (Non-Af Amer) 61.7 BUN/Creatinine Ratio 13.0 (10-20) Glucose 254 H (70-99) mg/dl Calcium 9.0 (8.5-10.1) mg/dl Magnesium 2.4 (1.8-2.4) mg/dl Total Bilirubin 0.5 (0.2-1) mg/dl AST 52 H (15-37) U/L ALT 55 (12-78) U/L Alkaline Phosphatase 104 (45-117) U/L Troponin I 0.020 (0-0.045) ng/ml NT-Pro-B Natriuret Pep 303 (0-900) pg/ml Total Protein 7.5 (6.4-8.2) gm/dl Albumin 3.8 (3.4-5.0) gm/dl Globulin 3.7 (2.5-4.0) gm/dl Albumin/Globulin Ratio 1.0 (0.9-2) Lipase 158 (73-393) U/L 01/13/19 01/13/19 Range/Units 22:31 22:55 WBC (4.8-10.8) K/uL RBC (4.7-6.1) M/uL Hgb (14.0-18.0) g/dL Hct (42-52) % MCV (80-100) fL MCH (25-34) pg MCHC (32-36) g/dL RDW Std Deviation (36.4-46.3) fL RDW Coeff of Mychal (11.5-14.5) % Plt Count (130-400) K/uL MPV (7.4-10.4) fL Immature Gran % (Auto) % Neut % (Auto) % Lymph % (Auto) % [place] % (Auto) % Eos % (Auto) % Baso % (Auto) % Immature Gran # (Auto) (0.00-0.02) K/uL Neut # (Auto) (1.4-6.5) K/uL Lymph # (Auto) (1.2-3.4) K/uL [place] # (Auto) (0.11-0.59) K/uL Eos # (Auto) (0-0.5) K/uL Baso # (Auto) (0-0.2) K/uL PT 10.9 INR 1.1 Specimen Type Arterial POC pH 7.35 (7.35-7.45) POC pCO2 39 (35-46) mmHg POC pO2 65 L (80-95) mmHg POC HCO3 21 (19-24) esa/L POC Total CO2 22 L (24-31) mEq/l POC Base Excess -4.0 (-9-1.8) esa/L POC ABG O2 Sat 91.0 (90-95) % Sodium (136-145) mmol/L Potassium (3.5-5.1) mmol/L Chloride (98-107) mmol/L Carbon Dioxide (21-32) mmol/L Anion Gap (3-11) BUN (7-18) mg/dl Creatinine (0.6-1.4) mg/dl Est Cr Clr Drug Dosing ml/min Est GFR ( Amer) Est GFR (Non-Af Amer) BUN/Creatinine Ratio (10-20) Glucose (70-99) mg/dl Calcium (8.5-10.1) mg/dl Magnesium (1.8-2.4) mg/dl Total Bilirubin (0.2-1) mg/dl AST (15-37) U/L ALT (12-78) U/L Alkaline Phosphatase (45-117) U/L Troponin I (0-0.045) ng/ml NT-Pro-B Natriuret Pep (0-900) pg/ml Total Protein (6.4-8.2) gm/dl Albumin (3.4-5.0) gm/dl Globulin (2.5-4.0) gm/dl Albumin/Globulin Ratio (0.9-2) Lipase (73-393) U/L Imaging Data Radiologist's Impression: Radiology results as stated below per my review and the radiologist's interpretation: SINGLE VIEW CHEST CLINICAL HISTORY: Dyspnea. FINDINGS: 2 AP, portable, upright chest radiographs are compared to study dated 01/11/2019. The examination is degraded by portable technique and apical lordotic positioning. The heart is enlarged. There is pulmonary vascular congestion with mild interstitial edema. Trace pleural effusions are suspected. There is bibasilar atelectasis. No pneumothorax is seen. The bony thorax is grossly intact. IMPRESSION: 1. Cardiomegaly with evidence of congestive failure and interstitial edema. 2. Suspect trace pleural effusions. Electronically signed by: Clifford Brizuela M.D. 01/13/2019 10:44 PM CTA CHEST: No pulmonary embolus. Cardiomegaly. Small bilateral pleural effusions. Pulmonary edema. Component of pneumonia not excluded. A few nodular opacities bilaterally, could be from organizing edema or pneumonia versus emboli in the appropriate clinical setting. No cavitation identified. Radiologist: Kev Olson MD Study ready at 23:28 and initial results transmitted at 23:57 ECG Data Attestation: I personally reviewed and interpreted this ECG as follows: Rate (beats per minute): 111 Findings: + other (normal intervals, normal axis, baseline artifact) and + ST elevation; no acute ischemic change Blood Pressure Blood Pressure Findings: Normal blood pressure Blood Pressure Disposition: further management by hospitalist ROHIT Narrative Patient here initially markedly ill-appearing and hypoxic on exam with agitation likely secondary to his hypoxia and air hunger. While patient's oxygen saturations did come up after being placed on a nonrebreather, patient continued to be agitated, complained of claustrophobia so was placed back on nasal cannula which helped sats in the low 90s. Patient initially with decreased lung sounds on exam and given history of smoking and COPD, was given a nebulizer treatment. After this repeat lung exam performed now revealed bilateral rales and chest x- ray confirmed this at bedside. She then transitioned off of the nasal cannula and onto Vapotherm which provided market improvement and relief. Patient reported no further air hunger and he had improved work of breathing and resolution of his tachypnea. Lasix added and Nitropaste applied. Patient's other labs reassuring. Patient's echo did reveal prior diminished ejection fraction of 45 to 50%. Likely this diminished EF combined with recent tachycardia and a flutter as well as subsequent cardioversion today contributed to increased stress and fatigue of his heart likely putting him at risk for acute congestive heart failure/pulmonary edema. Patient continued to improve here. Patient was sent for CT angiography of the chest as a precaution as he has not recently been anticoagulated. No PE was noted, pulmonary edema again seen. Patient with no other recent illness or infection, fevers or leukocytosis tonight to suggest occult pneumonia. Patient was in a sinus rhythm while monitored on telemetry and had improvement of his tachycardia with improvement in his work of breathing. Patient improved will monitor in the emergency room, case discussed with hospitalist for additional evaluation and management. Patient and made aware of all results and were in agreement with plan. Impression & Plan Dyspnea, Hypoxia, Pulmonary edema, Hyperglycemia, HTN (hypertension) Critical Care Time Critical Care Time: Yes Total Critical Care Time: 50 I have personally spent 50 minutes of critical care time in the direct management of this patient. This includes bedside care, interpretation of diagnostic studies, and testing, discussion with consultants, patient, and family members, and other required patient management activities. This 50 minutes is in excess of all separately billable procedures. Discharge Plan Visit Data *Final* Discharge Date/Time: 01/14/19 01:32 Chief Complaint: Respiratory Problems Stated Complaint: CAN'T BREATH, HAD HEART SHOCKED ED Provider: Lisa Villafana Discharge Problem: Dyspnea, Hypoxia, Pulmonary edema, Hyperglycemia, HTN (hypertension) Patient Disposition: Admitted As Inpatient Discharge Instructions Interventions: ED Discharge Assessment Last Done: 01/14/19 01:32 Discharge Problem: Dyspnea Qualifiers: Dyspnea type: unspecified Qualified Code(s): R06.00 - Dyspnea, unspecified Pulmonary edema Qualifiers: Chronicity: acute Qualified Code(s): J81.0 - Acute pulmonary edema HTN (hypertension) Qualifiers: Hypertension type: essential hypertension Qualified Code(s): I10 - Essential (primary) hypertension The scribe's documentation has been prepared under my direction and personally reviewed by me in its entirety. I confirm that the note above accurately reflects all work, treatment, procedures, and medical decision making performed by me.
[2019-01-15] MEDS: IPRATROPIUM BROMIDE NEB SOLN 0.02% 2.5 ML VIAL INH SCH ×2 (02:12→06:52)
[2019-01-15] MEDS: LEVALBUTEROL 1.25MG/0.5ML NEB INH SCH ×2 (02:12→06:52)
[2019-01-15] MEDS: GABAPENTIN 600 MG TAB PO SCH (04:46)
[2019-01-15] MEDS: PIPERACILLIN/TAZOBACTAM 4.5 GM in DEXTROSE 5% 100 ML IV SCH (06:20)
[2019-01-15 06:26] LABS: Basophils # (auto) 0.03 K/uL (0-0.2); Basophils % (auto) 0.4 %; Eosinophils # (auto) 0.18 K/uL (0-0.5); Eosinophils % (auto) 2.2 %; Hematocrit (blood only) 39.6 % (42-52); Hemoglobin 13.4 g/dL (14.0-18.0); Immature Granulocytes # (auto) 0.02 K/uL (0.00-0.02); Immature Granulocytes % (auto) 0.2 %; Lymphocytes # (auto) 2.29 K/uL (1.2-3.4); Lymphocytes % (auto) 27.8 %; Mean Corpuscular Hgb Conc 33.8 g/dL (32-36); Mean Corpuscular Volume 96.8 fL (80-100); Mean Platelet Volume 10.6 fL (7.4-10.4); Monocytes # (auto) 0.73 K/uL (0.11-0.59); Monocytes % (auto) 8.8 %; Neutrophils % (auto) 60.6 %; Platelet Count 141 K/uL (130-400); RDW Coefficient of Variation 13.5 % (11.5-14.5); RDW Standard Deviation 47.5 fL (36.4-46.3); Red Blood Count 4.09 M/uL (4.7-6.1); White Blood Count 8.25 K/uL (4.8-10.8)
[2019-01-15 07:00] LABS: Albumin Level 3.1 gm/dl (3.4-5.0); BUN Creatinine Ratio 13.4 (10-20); Calcium 8.3 mg/dl (8.5-10.1); Creatinine Clr Calc Pharmacy 118.7 ml/min; Est GFR (Non-African American) 94.9; Magnesium 2.3 mg/dl (1.8-2.4); Potassium 3.4 mmol/L (3.5-5.1)
[2019-01-15 07:07] LABS: Bilirubin,Total 0.9 mg/dl (0.2-1); Globulin 3.1 gm/dl (2.5-4.0); Total Protein 6.2 gm/dl (6.4-8.2)
[2019-01-15] MEDS ORDERED: POTASSIUM CHLORIDE 20 MEQ TABCR PO STA (07:11)
[2019-01-15] MEDS: APIXABAN 5 MG TABLET PO SCH (07:54)
[2019-01-15] MEDS: MULTIVITAMIN TAB PO SCH (07:54)
[2019-01-15] MEDS: FUROSEMIDE 20 MG in SYRINGE 0 ML IV SCH (07:55)
[2019-01-15] MEDS: INSULIN ASPART 100 UNITS/ML 3 ML PEN SC SCH ×2 (07:59→12:26)
--- NOTE | 2019-01-15 08:45 | XRay Report ---
XR chest 2V routine HISTORY: follow up lung infiltrates COMPARISON: Chest CTA 01/13/2019. FINDINGS: No pneumothorax. Trace bilateral pleural effusions. The heart remains enlarged. There is mi ld central pulmonary vascular congestion without overt edema. No new focal lung consolidations to sug gest pneumonia. IMPRESSION: Cardiomegaly with mild congestive change. This has improved in the interval. Electronically signed by: Kennedy Reardon M.D. 01/15/2019 8:43 AM
[2019-01-15] MEDS ORDERED: INSULIN GLARGINE SOLOSTAR 100 UNITS/ML 3 ML PEN SC SCH (09:00)
--- NOTE | 2019-01-15 10:23 | Cardiology Progress Note ---
Date of Service January 15, 2019 Assessment & Plan (1) Paroxysmal atrial flutter: (2) T2DM (type 2 diabetes mellitus): (3) Acute hypoxemic respiratory failure: (4) HAP (hospital-acquired pneumonia): (5) Pulmonary edema: I believe the patient may be discharged home with outpatient follow-up. He already has an appointment set up with me on January 19 which she will keep. I do not believe he needs to go home on a daily diuretic. I will will reassess him at his follow-up. For now I would continue the diltiazem and Eliquis. I also agree with switching the patient to Augmentin for a few days after discharge. Subjective The patient had an uneventful night. He is walking in the hallways without difficulty. He denies shortness of breath or dyspnea. He is maintaining sinus rhythm. Review of Systems Review of Systems: All systems reviewed & are unremarkable except as noted in HPI & below Nothing additional to add. Physical Exam Physical Exam: General: no acute distress and stated age Head: normocephalic, no masses, lesions, tenderness or abnormalities Eyes: conjunctiva are pink and non-injected, sclera clear Neck: supple, no adenopathy, no bruits, normal jugular venous pulse, no hepatojugular reflux Chest: normal shape and normal respiratory effort Lungs: clear to auscultation and percussion Cardiac Exam: - regular rate & rhythm, no murmurs gallops or rubs - normal S1, normal S2 Pulses: 2(+) throughout Abdomen: abdomen soft, non-tender, no abnormal masses and no hepatosplenomegaly Musculoskeletal: no gait disturbance, no joint inflammation, no deforming arthritis Extremities: no edema and no cyanosis Neuro: grossly normal exam Results & Data Vital Signs (Past 12 Hours) Vital Signs Temp Pulse Pulse Resp BP Pulse Ox 01/15/19 06:54 81 18 93 01/15/19 06:21 81 01/15/19 02:49 36.8 C 87 16 109/69 92 01/14/19 23:05 36.6 C 94 H 16 102/62 96 Laboratory Results Laboratory Results - last 24 hr 01/13/19 01/14/19 01/14/19 22:31 11:20 16:34 WBC RBC Hgb Hct MCV MCH MCHC RDW Std Deviation RDW Coeff of Mychal Plt Count MPV Immature Gran % (Auto) Neut % (Auto) Lymph % (Auto) [place] % (Auto) Eos % (Auto) Baso % (Auto) Immature Gran # (Auto) Neut # (Auto) Lymph # (Auto) [place] # (Auto) Eos # (Auto) Baso # (Auto) Specimen Type Arterial POC pH 7.35 POC pCO2 39 POC pO2 65 L POC HCO3 21 POC Total CO2 22 L POC Base Excess -4.0 POC ABG O2 Sat 91.0 Sodium Potassium Chloride Carbon Dioxide Anion Gap BUN Creatinine Est Cr Clr Drug Dosing Est GFR ( Amer) Est GFR (Non-Af Amer) BUN/Creatinine Ratio Glucose POC Glucose 247 H 238 H Calcium Magnesium Total Bilirubin AST ALT Alkaline Phosphatase Total Protein Albumin Globulin Albumin/Globulin Ratio Folate 01/14/19 01/14/19 01/15/19 17:59 20:49 06:03 WBC 8.25 RBC 4.09 L Hgb 13.4 L Hct 39.6 L MCV 96.8 MCH 32.8 MCHC 33.8 RDW Std Deviation 47.5 H RDW Coeff of Mychal 13.5 Plt Count 141 MPV 10.6 H Immature Gran % (Auto) 0.2 Neut % (Auto) 60.6 Lymph % (Auto) 27.8 [place] % (Auto) 8.8 Eos % (Auto) 2.2 Baso % (Auto) 0.4 Immature Gran # (Auto) 0.02 Neut # (Auto) 5.00 Lymph # (Auto) 2.29 [place] # (Auto) 0.73 H Eos # (Auto) 0.18 Baso # (Auto) 0.03 Specimen Type POC pH POC pCO2 POC pO2 POC HCO3 POC Total CO2 POC Base Excess POC ABG O2 Sat Sodium Potassium Chloride Carbon Dioxide Anion Gap BUN Creatinine Est Cr Clr Drug Dosing Est GFR ( Amer) Est GFR (Non-Af Amer) BUN/Creatinine Ratio Glucose POC Glucose 187 H Calcium Magnesium Total Bilirubin AST ALT Alkaline Phosphatase Total Protein Albumin Globulin Albumin/Globulin Ratio Folate 16.96 01/15/19 01/15/19 06:03 07:47 WBC RBC Hgb Hct MCV MCH MCHC RDW Std Deviation RDW Coeff of Mychal Plt Count MPV Immature Gran % (Auto) Neut % (Auto) Lymph % (Auto) [place] % (Auto) Eos % (Auto) Baso % (Auto) Immature Gran # (Auto) Neut # (Auto) Lymph # (Auto) [place] # (Auto) Eos # (Auto) Baso # (Auto) Specimen Type POC pH POC pCO2 POC pO2 POC HCO3 POC Total CO2 POC Base Excess POC ABG O2 Sat Sodium 138 Potassium 3.4 L D Chloride 102 Carbon Dioxide 28 Anion Gap 8.0 BUN 12 Creatinine 0.89 Est Cr Clr Drug Dosing 118.7 Est GFR ( Amer) 110.0 Est GFR (Non-Af Amer) 94.9 BUN/Creatinine Ratio 13.4 Glucose 115 H POC Glucose 161 H Calcium 8.3 L Magnesium 2.3 Total Bilirubin 0.9 AST 28 ALT 45 Alkaline Phosphatase 70 Total Protein 6.2 L Albumin 3.1 L Globulin 3.1 Albumin/Globulin Ratio 1.0 Folate Medications Administered Current Inpatient Medications Acetaminophen (Tylenol) 650 mg PO Q4H PRN PRN Reason: Pain or Fever Stop: 02/13/19 01:59 Amoxicillin/Clavulanate Potassium (Augmentin 875mg) 1 tab PO BIDM [facility] Stop: 01/22/19 16:59 Apixaban (Eliquis) 5 mg PO BID [facility] Stop: 02/13/19 08:59 Last Admin: 01/15/19 07:54 Dose: 5 mg Documented by: Dextrose (Dextrose 50%) 25 - 50 ml IV UD PRN; Protocol PRN Reason: Hypoglycemia Protocol Stop: 02/13/19 01:59 Diltiazem HCl (Dilacor Xr) 120 mg PO QAM [facility] Stop: 02/13/19 01:59 Last Admin: 01/15/19 07:54 Dose: 120 mg Documented by: Gabapentin (Neurontin) 600 mg PO Q8H [facility] Stop: 01/16/19 06:01 Gabapentin (Neurontin) 600 mg PO Q12H [facility] Stop: 01/17/19 06:01 Gabapentin (Neurontin) 600 mg PO Q24H [facility] Stop: 01/18/19 06:01 Glucagon (Glucagen) 1 mg SQ UD PRN; Protocol PRN Reason: Hypoglycemia Protocol Stop: 02/13/19 01:59 Glucose (Dex4 Glucose) 4 - 8 tabs PO UD PRN; Protocol PRN Reason: Hypoglycemia Protocol Stop: 02/13/19 01:59 Glucose (Glucose 40%) 15 - 30 gm PO UD PRN; Protocol PRN Reason: Hypoglycemia Protocol Stop: 02/13/19 01:59 Furosemide 20 mg/ Syringe 2 mls @ 4 mls/min IV DAILY BRITTANI Stop: 02/13/19 08:59 Last Admin: 01/15/19 07:55 Dose: 4 mls/min Documented by: Insulin Aspart (Novolog Flexpen) 0 units SC ACHS [facility] Stop: 02/13/19 02:29 Last Admin: 01/15/19 07:59 Dose: 4 units Documented by: Insulin Glargine (Lantus Solostar Pen) 10 units SC DAILY BRITTANI Stop: 02/14/19 08:59 Last Admin: 01/15/19 07:56 Dose: 10 units Documented by: Miscellaneous (Carbohydrates For Hypoglycemia) 15 - 30 gm PO UD PRN PRN Reason: Hypoglycemia Treatment Stop: 02/13/19 01:59 Multivitamins (Multivitamin Tab) 1 tab PO QAM [facility] Stop: 02/13/19 08:59 Last Admin: 01/15/19 07:54 Dose: 1 tab Documented by: Nitroglycerin (Nitrostat) 0.4 mg SL UD PRN PRN Reason: Chest Pain Stop: 02/13/19 01:59 Tramadol HCl (Ultram) 50 mg PO Q6H PRN PRN Reason: moderate to severe pain Stop: 02/13/19 01:59 Last Admin: 01/14/19 21:14 Dose: 50 mg Documented by: (1) Pulmonary edema Chronicity: acute Qualified Code(s): J81.0 - Acute pulmonary edema
[2019-01-15] MEDS ORDERED: GABAPENTIN 600 MG TAB PO SCH (14:00)
--- NOTE | 2019-01-15 14:11 | Hospitalist Progress Note ---
Date of Service January 15, 2019 Assessment & Plan (1) Acute hypoxemic respiratory failure: This is a 58 year old Male who was recently discharged on 01/13/19 after he had cardioversion that day as inpatient at 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 Cardiomegaly with congestive change and moderate pulmonary edema. Trace bilateral pleural effusions. 2. Patchy upper lobe groundglass infiltrates may also represent more limited edema versus less likely an infectious etiology. 3. No evidence of pulmonary emboli. 4. Mediastinal and bilateral hilar lymphadenopathy. This could potentially relate to venolymphatic congestive change. -patient may have developed post cardioversion pulmonary edema from volume overload versus a hospital-acquired pneumonia. -was started on Zosyn by admitting hospitalist in case of pneumonia but there is normal white blood cell counts and no fever -patient received Lasix 40 mg IV in the ED, patient received 20 mg IV Lasix BID on 01/14/19, and has then been consistently on room air -repeat CXR on 01/15/19 No pneumothorax. Trace bilateral pleural effusions. The heart remains enlarged. There is mild central pulmonary vascular congestion without overt edema. No new focal lung consolidations to suggest pneumonia -blood cultures with no growth and normal sputum cultures. Zosyn stopped on 01/15/19 and patient to take Augmentin BID for 7 days in case there was a pneumonia acquired from recent hospitalization or aspiration pneumonia from 01/13/19 cardioversion -as per cardiology Dr. Levine: patient does not need to be on scheduled Lasix and patient can be cleared for hospital discharge Paroxysmal atrial flutter CAD (coronary artery disease): hx of Stent x 2 (RCA 04' and L circumflex 05') -had cardioversion on 01/13/19 AM -remains in sinus rhythm -On Apixaban therapy (Eliquis) -continue Diltiazem Previous history of mechanical fall with cervical sprain and left hip contusion -prn acetaminophen and prn tramadol Type 2 diabetes mellitus without programs director current use of insulin and without complications - HbA1c of 8.9 -while in the hospital, patient given sliding scale insulin and Lantus because of initial IV steroid given to the patient -patient may resume home dose metformin and he is to follow up with primary care doctor for further tighter glucose control Alcohol use -no evidence of alcohol withdrawal on previous hospitalization -was started gabapentin withdrawal protocol as precaution -no alcohol withdrawal on this hospitalization DVT prophylaxis -On Apixaban therapy (Eliquis) Discharge Diagnosis Acute respiratory failure with hypoxia secondary to pulmonary edema, pneumonia suspected, Paroxysmal atrial flutter, On Apixaban therapy (Eliquis), Type 2 diabetes mellitus without retirement current use of insulin and without complications Discharge instructions (Follow up 01/18/2019 2:20 PM Provider Citlalli Jones MD Department General Internal Medicine [facility] 01/19/2019 9:00 AM Provider Cristino Levine DO Department Cardiology, [facility] Prescriptions of Augmentin twice a day for 7 days sent electronically to [facility] [address], [place] [address] Patient should stop aspirin and ibuprofen at home while on Eliquis. Continue Eliquis. Continue Diltiazem Patient may continue to take metformin for diabetes melltius but given HbA1c of 8.9, patient may need additional diabetes medications as per primary care doctor) Subjective Patient on room air. denies acute shortness of breath. no chest pain. no palpitations. no headache. no lightheadedness. no dizziness Physical Exam Constitutional: comfortable Eyes: PERRL, conjunctivae normal, anicteric sclerae EOM intact bilaterally ENMT: external ear and nose normal, oropharynx normal Neck: trachea midline, no thyromegaly Respiratory: normal respiratory effort Cardiovascular: Rate/Rhythm: regular rate and regular rhythm Gastrointestinal (Abdomen): normal bowel sounds, soft, nontender, no hepatosplenomegaly Musculoskeletal: Head/Neck/Chest: normocephalic and head atraumatic Neurologic: PERRL, EOMI, accommodation nl, no face palsy, no dysarthria CN's II-XI intact bilaterally Psychiatric: A+Ox3, euthymic affect Results & Data Vital Signs (Past 12 Hours) Vital Signs Temp Pulse Pulse Resp BP Pulse Ox 01/15/19 06:54 81 18 93 01/15/19 06:21 81 01/15/19 02:49 36.8 C 87 16 109/69 92
--- NOTE | 2019-01-15 14:28 | Discharge Summary ---
Date of Service January 15, 2019 Admission HPI Per Admitting Provider History obtained from patient, family, and records. Medical history significant for chronic systolic/diastolic heart failure secondary to ischemic cardiomyopathy (EF 45-50% TTE 2019), CAD status post stent, atrial flutter status post cardioversion on Eliquis, hypertension, hyperlipidemia, DM 2 on oral medications, past tobacco/alcohol abuse. Recent confinement 01/11- for atrial flutter w/ RVR. Patient underwent cardioversion yesterday. Subsequently discharged yesterday on Eliquis prescription. At home last night, patient noted cough symptoms productive of junky yellow sputum with increasing shortness of breath. Roommate in the hospital was coughing as per patient's . Patient denies chest pain, aspiration, fever, chills, weight gain. Patient brought to the ER for worsening shortness of breath. Patient given Lasix for possible CHF. 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 Admission Exam Per Admitting Provider GENERAL: slightly uncomfortable, minimal respiratory distress, obese SKIN: Normal color, warm HEENT: Alopecia, pink palpebral conjunctivae, no ptosis, dry buccal mucosa, O2 device in place NECK : Supple, short, no tenderness CHEST : Bilateral rhonchi, occasional wheeze, no tenderness HEART : Tachycardic, no obvious murmurs ABDOMEN: Some distention, nontender EXTREMITIES : No LE swelling/tenderness, no other conspicuous deformities noted NEUROLOGIC : Coherent, no facial asymmetry, no other gross focality Principal Diagnosis Acute respiratory failure with hypoxia secondary to pulmonary edema, pneumonia suspected, Paroxysmal atrial flutter, On Apixaban therapy (Eliquis), Type 2 diabetes mellitus 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 and without complications Discharge Exam Constitutional comfortable Eyes PERRL, conjunctivae normal, anicteric sclerae EOM intact bilaterally ENMT external ear and nose normal, oropharynx normal Neck trachea midline, no thyromegaly Respiratory normal respiratory effort Cardiovascular Rate/Rhythm: regular rate and regular rhythm Gastrointestinal (Abdomen) normal bowel sounds, soft, nontender, no hepatosplenomegaly Musculoskeletal Head/Neck/Chest: normocephalic and head atraumatic Neurologic PERRL, EOMI, accommodation nl, no face palsy, no dysarthria CN's II-XI intact bilaterally Psychiatric A+Ox3, euthymic affect Discharge Data Allergies Allergy/AdvReac Type Severity Reaction Status Date / Time codeine Allergy Intermediate GI Verified 01/13/19 23:23 SYMPTOMS and tachycardia morphine Allergy Intermediate GI SYMPTOMS Verified 01/13/19 23:23 Sulfa (Sulfonamide Allergy Unknown unknown Verified 01/13/19 23:23 Antibiotics) Consultations 01/14/19 16:28 Consult Cardiology Routine Ordered Studies 01/13/19 22:15 CT angio chest PE protocol Urgent Hospital Course (1) Acute hypoxemic respiratory failure: This is a 58 year old Male who was recently discharged on 01/13/19 after he had cardioversion that day as inpatient at [facility] for which he had atrial flutter and rapid ventricular response and while he was on room air throughout hospital course and also had been monitored for over 8 hours after cardioversion while on room air, patient then developed shortness of breath symptoms at home at night and had hypoxia in the ED on night of 01/13/19 and re-admitted to hospital on imagery intelligence hours of 01/14/19 Acute respiratory failure with hypoxia secondary to pulmonary edema (from previous IV medications and then cardioversion on previous hospital stay) pneumonia suspected (but less likely) -oxygen saturation below 85% on ED presentation and patient started on supplementary oxygen -admission CTA 1. Cardiomegaly with congestive change and moderate pulmonary edema. Trace bilateral pleural effusions. 2. Patchy upper lobe groundglass infiltrates may also represent more limited edema versus less likely an infectious etiology. 3. No evidence of pulmonary emboli. 4. Mediastinal and bilateral hilar lymphadenopathy. This could potentially relate to venolymphatic congestive change. -patient may have developed post cardioversion pulmonary edema from volume overload versus a hospital-acquired pneumonia. -was started on Zosyn by admitting hospitalist in case of pneumonia but there is normal white blood cell counts and no fever -patient received Lasix 40 mg IV in the ED, patient received 20 mg IV Lasix BID on 01/14/19, and has then been consistently on room air -repeat CXR on 01/15/19 No pneumothorax. Trace bilateral pleural effusions. The heart remains enlarged. There is mild central pulmonary vascular congestion without overt edema. No new focal lung consolidations to suggest pneumonia -blood cultures with no growth and normal sputum cultures. Zosyn stopped on 01/15/19 and patient to take Augmentin BID for 7 days in case there was a pneumonia acquired from recent hospitalization or aspiration pneumonia from 01/13/19 cardioversion -as per cardiology Dr. 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 and without complications - HbA1c of 8.9 -while in the hospital, patient given sliding scale insulin and Lantus because of initial IV steroid given to the patient -patient may resume home dose metformin and he is to follow up with primary care doctor for further tighter glucose control Alcohol use -no evidence of alcohol withdrawal on previous hospitalization -was started gabapentin withdrawal protocol as precaution -no alcohol withdrawal on this hospitalization DVT prophylaxis -On Apixaban therapy (Eliquis) Discharge Diagnosis Acute respiratory failure with hypoxia secondary to pulmonary edema, pneumonia suspected, Paroxysmal atrial flutter, On Apixaban therapy (Eliquis), Type 2 diabetes mellitus without prison current use of insulin and without complications Discharge instructions (Follow up 01/18/2019 2:20 PM Provider Citlalli Jones MD Department General Internal Medicine [facility] 01/19/2019 9:00 AM Provider Cristino Levine DO Department Cardiology, [facility] Prescriptions of Augmentin twice a day for 7 days sent electronically to [facility] [address], [place] [address] Patient should stop aspirin and ibuprofen at home while on Eliquis. Continue Eliquis. Continue Diltiazem Patient may continue to take metformin for diabetes melltius but given HbA1c of 8.9, patient may need additional diabetes medications as per primary care doctor) Total Time Total Time Spent Total Time Spent (In Minutes): 40 minutes Total Time Includes: Examination of the Patient, Discharge Planning, Medication Reconciliation and Communication With Other Providers Discharge Plan Discharge Items Patient Disposition: Home - Self-Care Reason For Visit: RESP FAILURE Discharge Diagnosis: Acute respiratory failure with hypoxia secondary to pulmonary edema, pneumonia suspected, Paroxysmal atrial flutter, On Apixaban therapy (Eliquis), Type 2 diabetes mellitus without prison current use of insulin and without complications Condition: Good Discharge Goals: Improve disease control Activity: Resume your previous activity Non-emergency contact: Primary Care Provider and Power Plant Supervisor Call non-emergency contact if: you have any medication questions Follow-up/Referrals: Ajit Wood DO [Primary Care Provider] - Diet: Carb Consistent or DM2 Addtl Provider Instructions: Follow up 01/18/2019 2:20 PM Provider Citlalli Jones MD Department General Internal Medicine [facility] 01/19/2019 9:00 AM Provider Cristino Levine DO Department Cardiology, [facility] Prescriptions of Augmentin twice a day for 7 days sent electronically to [facility] [address] [facility] [place] [address] Patient should stop aspirin and ibuprofen at home while on Eliquis. Continue Eliquis. Continue Diltiazem Patient may continue to take metformin for diabetes melltius but given HbA1c of 8.9, patient may need additional diabetes medications as per primary care doctor Prescriptions: New amoxicillin-pot clavulanate 875-125 mg Tablet 1 tab PO BIDM 7 Days Qty: 14 RF: 0 Continued Eliquis 5 mg Tablet 5 mg PO BID 30 Days Qty: 60 RF: 0 diltiazem HCl 120 mg Capsule,Ext.Rel 24h Degradable 120 mg PO QAM 30 Days Qty: 30 RF: 0 acetaminophen 325 mg tablet 325 mg PO Q8H PRN (Reason: mild pain) 5 Days Qty: 15 RF: 0 tramadol 50 mg Tablet 50 mg PO Q6H PRN (Reason: moderate to severe pain) 4 Days Qty: 16 RF: 0 multivitamin Tablet 1 tab PO QAM RF: 0 metformin 1,000 mg Tablet 1,000 mg PO BID RF: 0 zinc 50 mg Tablet 50 mg PO QAM RF: 0 cholecalciferol (vitamin D3) [Vitamin D3] 1,000 unit Capsule 1,000 unit PO QAM RF: 0 omega 9-stg-ceu-fish oil [Fish Oil] 1,000 mg (120 mg-180 mg) Capsule 2 cap PO QAM RF: 0 Stand-Alone Forms: [facility] Discharge Orders: Discharge Order (Routine); Ordered 01/15/19 Ordered By: Leon Paulino Admission Data Admit Date/Time: 01/14/19 01:04 Attending Provider: Leon Paulino Admit Provider: Segundo Kong Primary Care Provider: Ajit Wood Other Providers: Cristino Levine Service: Telemetry
[2019-01-15] MEDS ORDERED: AMOXICILLIN/CLAVULANATE 875 MG TAB PO SCH (17:00)
[2019-01-16] MEDS ORDERED: INSULIN GLARGINE SOLOSTAR 100 UNITS/ML 3 ML PEN SC SCH (09:00)
[2019-01-16] MEDS ORDERED: GABAPENTIN 600 MG TAB PO SCH (18:00)
[2019-01-18] MEDS ORDERED: GABAPENTIN 600 MG TAB PO SCH (06:00)
== END 2019-01-15 15:00 | disposition home or self-care (01) | DRG 189 ==
LOC: ED 22:08 → 2S 01-14 01:04

== ENCOUNTER 2019-04-23 15:15 | Inpatient (IN) ==
[2019-04-23] MEDS ORDERED: METOPROLOL TARTRATE 1 MG/ML VIAL IV STA ×3 (15:30→17:14)
[2019-04-23] MEDS ORDERED: SODIUM CHLORIDE 0.9% 1000ML 500 ML IV ONE ×2 (15:30→17:14)
--- NOTE | 2019-04-23 15:32 | Emergency Department Note ---
Entered by Jodi Louise acting as a scribe for History of Present Illness General Chief complaint: Cardiac Assessment Stated complaint: AFIB Time Seen by Provider: 04/23/19 15:21 Source: patient History of Present Illness Onset (ago): hour(s) (today) Location: chest Severity: similar to prior episodes Pain Consistency: + other (episode ) Quality: + other (referral for heart racing ) Associated symptoms: + nausea/vomiting and + other (positive diarrhea); no chest pain and no shortness of breath The patient is a 59 year old male who presents to the Emergency Room with com plaints of an episode of a referral for racing heartbeat that began today. The patient states that he has a history of atrial fibrillation and states that the last time he had this he had to be shocked out of it. The patient denies chest pain or shortness of breath. He states that he took all of his medications today. The patient reports nausea, vomiting, and diarrhea recently. Home Medications Home Medications Medication Instructions Recorded Confirmed Type cholecalciferol (vitamin D3) 1,000 unit PO QAM 07/20/18 04/23/19 History [Vitamin D3] metformin 1,000 mg PO BID 07/20/18 04/23/19 History multivitamin 1 tab PO QAM 07/20/18 04/23/19 History omega 4-las-fbn-fish oil [Fish Oil] 2 cap PO QAM 07/20/18 04/23/19 History zinc 50 mg PO QAM 07/20/18 04/23/19 History magnesium 250 mg PO DAILY 04/23/19 04/23/19 History metoprolol succinate 25 mg PO DAILY 04/23/19 04/23/19 History warfarin [Coumadin] 5 mg PO .QMON 04/23/19 04/23/19 History warfarin [Jantoven] 10 mg PO [id number] 04/23/19 04/23/19 History Allergies Allergy/AdvReac Type Severity Reaction Status Date / Time codeine Allergy Intermediate GI Verified 04/23/19 17:03 SYMPTOMS and tachycardia morphine Allergy Intermediate GI SYMPTOMS Verified 04/23/19 17:03 cyclobenzaprine Allergy Unknown Unknown Verified 04/23/19 17:05 gabapentin Allergy Unknown Unknown Verified 04/23/19 17:05 Sulfa (Sulfonamide Allergy Unknown unknown Verified 04/23/19 17:03 Antibiotics) tramadol Allergy Unknown Unknown Verified 04/23/19 17:05 Past Med/Surg History Medical History Alcohol abuse CAD (coronary artery disease) History of tobacco abuse HLD (hyperlipidemia) HTN (hypertension) (Acute) Paroxysmal atrial flutter T2DM (type 2 diabetes mellitus) Surgical History History of colonoscopy History of heart artery stent RCA 09/03; L circumflex 05/06 History of tonsillectomy and adenoidectomy Family History Father Coronary heart disease Hypertension Mother Coronary heart disease Brother Diabetes Other No known problems Social History Preferred Language: Palestinian Communication Ability: Effective Patient Attendant Required: No Beliefs That Will Affect Care: None marital status: Current Living Situation: Spouse current occupational status: employed Other Information That Helps Us Care for You: No Feels Safe at Home: Yes Safety Concerns: Feels Safe At This Time Smoking Status: Former smoker Tobacco Type: cigarettes ; Second Hand Exposure: No ; Hx Alcohol Use: Yes Alcohol type: hard liquor Alcohol type Comment: 3-4 shots 4 days a week Alcohol Intake Frequency: Daily Hx Substance Use: No Review of Systems See HPI for pertinent positives & negatives. and A total of 10 systems reviewed and were otherwise negative Physical Exam Vital Signs Vital Signs - 24 hr 04/23/19 15:24 04/23/19 15:26 04/23/19 15:35 Temperature 36.4 C L Temperature Source Oral Pulse Rate 125 H 123 H Pulse Rate from SpO2 Sensor 125 H Respiratory Rate 22 24 Respiratory Effort / Characteristics Non-Labored Spontaneous Respiratory Depth Normal Blood Pressure 136/96 136/96 Blood Pressure Mean 109 119 Pulse Oximetry 97 97 95 Oxygen Delivery Method Room Air Room Air Room Air Sepsis Recent Fever Within 48 Hours No Sepsis Action Taken by Nursing No Action Required 04/23/19 15:39 04/23/19 15:45 04/23/19 16:00 Temperature Temperature Source Pulse Rate 123 H 125 H 122 H Pulse Rate from SpO2 Sensor 124 H 125 H 123 H Respiratory Rate 18 20 17 Respiratory Effort / Characteristics Respiratory Depth Blood Pressure 128/91 126/97 Blood Pressure Mean 96 111 Pulse Oximetry 98 95 96 Oxygen Delivery Method Room Air Room Air Room Air Sepsis Recent Fever Within 48 Hours Sepsis Action Taken by Nursing 04/23/19 16:15 04/23/19 16:30 04/23/19 16:38 Temperature Temperature Source Pulse Rate 123 H 121 H 121 H Pulse Rate from SpO2 Sensor 122 H 122 H 120 H Respiratory Rate 15 12 15 Respiratory Effort / Characteristics Respiratory Depth Blood Pressure 118/95 117/85 119/91 Blood Pressure Mean 100 92 95 Pulse Oximetry 94 96 96 Oxygen Delivery Method Room Air Room Air Room Air Sepsis Recent Fever Within 48 Hours Sepsis Action Taken by Nursing 04/23/19 16:45 04/23/19 17:00 04/23/19 17:15 Temperature Temperature Source Pulse Rate 126 H 120 H 120 H Pulse Rate from SpO2 Sensor 126 H 120 H 121 H Respiratory Rate 16 23 18 Respiratory Effort / Characteristics Respiratory Depth Blood Pressure 140/91 129/92 128/91 Blood Pressure Mean 107 109 103 Pulse Oximetry 95 95 96 Oxygen Delivery Method Room Air Room Air Room Air Sepsis Recent Fever Within 48 Hours Sepsis Action Taken by Nursing 04/23/19 17:30 04/23/19 17:31 04/23/19 17:45 Temperature Temperature Source Pulse Rate 118 H 118 H 118 H Pulse Rate from SpO2 Sensor 121 H 120 H Respiratory Rate 19 18 Respiratory Effort / Characteristics Respiratory Depth Blood Pressure 123/93 123/93 133/103 H Blood Pressure Mean 97 107 Pulse Oximetry 95 94 Oxygen Delivery Method Room Air Room Air Sepsis Recent Fever Within 48 Hours Sepsis Action Taken by Nursing GENERAL: Patient is awake alert in no acute distress patient is resting comfort ably and showing no signs of anxiety EYES: The conjunctivae are clear. The pupils are round and reactive. EARS, NOSE, MOUTH AND THROAT: The nose is without any evidence of any deformity. Mucous membranes are moist tongue is midline NECK: The neck is nontender and supple. RESPIRATORY: Normal respiratory effort is noted there is no evidence of wheezing rhonchi or rales CARDIOVASCULAR: Tachycardic rate with a regular rhythm was noted. There is no definite murmur noted. GASTROINTESTINAL: The abdomen is soft. Abdomen was nontender. MUSCULOSKELETAL/EXTREMITIES: There is no evidence of gross deformity full range of motion is noted in the hips and shoulders SKIN: There is no obvious evidence of any rash. Trace pedal edema was noted bilaterally. NEUROLOGIC: Patient is awake alert and oriented x3. Course Course 1526: Past medical records reviewed. The patient was evaluated in room A12B. A complete history and physical exam was performed. 1717: I updated the patient on all results. He is in agreement with the plan. 1728: I discussed the case with Rebeca Pereira PA-C who accepts the patient for further evaluation under Dr. Dang Hospitalist service. Administered Medications Discontinued Medications Sodium Chloride (Nss 1000ml) 500 mls @ 999 mls/hr IV .Q31M ONE Stop: 04/23/19 16:00 Last Infusion: 04/23/19 16:16 Dose: 0 mls/hr Documented by: [id number] Admin: 04/23/19 15:45 Dose: 999 mls/hr Documented by: [id number] Sodium Chloride (Nss 1000ml) 500 mls @ 999 mls/hr IV .Q31M ONE Stop: 04/23/19 17:44 Last Infusion: 04/23/19 18:03 Dose: 0 mls/hr Documented by: [id number] Admin: 04/23/19 17:32 Dose: 999 mls/hr Documented by: [id number] Metoprolol Tartrate (Lopressor) 5 mg IV NOW STA Stop: 04/23/19 15:31 Last Admin: 04/23/19 15:45 Dose: 5 mg Documented by: [id number] Metoprolol Tartrate (Lopressor) 5 mg IV NOW STA Stop: 04/23/19 16:19 Last Admin: 04/23/19 16:38 Dose: 5 mg Documented by: [id number] Metoprolol Tartrate (Lopressor) 5 mg IV NOW STA Stop: 04/23/19 17:15 Last Admin: 04/23/19 17:31 Dose: 5 mg Documented by: [id number] Critical Care Time Critical Care Time: Yes Total Critical Care Time: 45 I have personally spent greater than 45 minutes of critical care time in the direct management of this patient. This includes bedside care, interpretation of diagnostic studies, and testing, discussion with consultants, patient, and family members, and other required patient management activities. This 45 minutes is in excess of all separately billable procedures. Medical Decision Making Differential Diagnosis Differential diagnosis includes etiologies such as premature contractions, electrolyte abnormality, cardiac dysrhythmia, thyroid dysfunction, pulmonary embolism, infection, gastrointestinal, as well as others were entertained. Medical Records Attestation: I reviewed the patient's medical records. Home Medications Current Medication List: was personally reviewed by me Laboratory Data Attestation: I reviewed the patient's lab results. Result diagrams: 04/23/19 15:35 04/23/19 15:35 Lab Results 04/23/19 04/23/19 04/23/19 Range/Units 15:35 15:35 15:35 WBC 7.19 (4.8-10.8) K/uL RBC 4.31 L (4.7-6.1) M/uL Hgb 14.3 (14.0-18.0) g/dL Hct 41.7 L (42-52) % MCV 96.8 (80-100) fL MCH 33.2 (25-34) pg MCHC 34.3 (32-36) g/dL RDW Std Deviation 55.9 H (36.4-46.3) fL RDW Coeff of Mychal 16.1 H (11.5-14.5) % Plt Count 191 (130-400) K/uL MPV 10.4 (7.4-10.4) fL Immature Gran % (Auto) 0.1 % Neut % (Auto) 46.1 % Lymph % (Auto) 39.5 % [place] % (Auto) 10.0 % Eos % (Auto) 3.6 % Baso % (Auto) 0.7 % Immature Gran # (Auto) 0.01 (0.00-0.02) K/uL Neut # (Auto) 3.31 (1.4-6.5) K/uL Lymph # (Auto) 2.84 (1.2-3.4) K/uL [place] # (Auto) 0.72 H (0.11-0.59) K/uL Eos # (Auto) 0.26 (0-0.5) K/uL Baso # (Auto) 0.05 (0-0.2) K/uL PT 19.0 H (9.0-12.0) Seconds INR 1.9 H (0.9-1.1) APTT 26.8 (21.0-31.0) Seconds PTT Ratio 1.0 Sodium 135 L (136-145) mmol/L Potassium 3.8 (3.5-5.1) mmol/L Chloride 104 (98-107) mmol/L Carbon Dioxide 25 (21-32) mmol/L Anion Gap 6.0 (3-11) BUN 6 L (7-18) mg/dl Creatinine 0.94 (0.6-1.4) mg/dl Est Cr Clr Drug Dosing 114.1 ml/min Est GFR ( Amer) 103.2 Est GFR (Non-Af Amer) 89.0 BUN/Creatinine Ratio 6.8 L (10-20) Glucose 147 H (70-99) mg/dl Calcium 9.3 (8.5-10.1) mg/dl Magnesium 2.1 (1.8-2.4) mg/dl Total Bilirubin 0.6 (0.2-1) mg/dl AST 9 L (15-37) U/L ALT 20 (12-78) U/L Alkaline Phosphatase 81 (45-117) U/L Troponin I < 0.015 (0-0.045) ng/ml Total Protein 7.5 (6.4-8.2) gm/dl Albumin 4.1 (3.4-5.0) gm/dl Globulin 3.4 (2.5-4.0) gm/dl Albumin/Globulin Ratio 1.2 (0.9-2) TSH 3.510 (0.300-4.500) uIu/ml Urine Color Urine Appearance (Clear) Urine pH (4.5-7.5) Ur Specific [place] (1.000-1.030) Urine Protein (Negative) Urine Glucose (UA) (Negative) Urine Ketones (Negative) Urine Blood (Negative) Urine Nitrite (Negative) Urine Bilirubin (Negative) Urine Urobilinogen (Negative) Ur Leukocyte Esterase (Negative) Urine WBC (Auto) (0-5) /hpf Urine RBC (Auto) (0-4) /hpf U Hyaline Cast (Auto) (0-5) /lpf U Epithel Cells (Auto) (0-5) /lpf Urine Bacteria (Auto) (Negative) 04/23/19 Range/Units 16:40 WBC (4.8-10.8) K/uL RBC (4.7-6.1) M/uL Hgb (14.0-18.0) g/dL Hct (42-52) % MCV (80-100) fL MCH (25-34) pg MCHC (32-36) g/dL RDW Std Deviation (36.4-46.3) fL RDW Coeff of Mychal (11.5-14.5) % Plt Count (130-400) K/uL MPV (7.4-10.4) fL Immature Gran % (Auto) % Neut % (Auto) % Lymph % (Auto) % [place] % (Auto) % Eos % (Auto) % Baso % (Auto) % Immature Gran # (Auto) (0.00-0.02) K/uL Neut # (Auto) (1.4-6.5) K/uL Lymph # (Auto) (1.2-3.4) K/uL [place] # (Auto) (0.11-0.59) K/uL Eos # (Auto) (0-0.5) K/uL Baso # (Auto) (0-0.2) K/uL PT (9.0-12.0) Seconds INR (0.9-1.1) APTT (21.0-31.0) Seconds PTT Ratio Sodium (136-145) mmol/L Potassium (3.5-5.1) mmol/L Chloride (98-107) mmol/L Carbon Dioxide (21-32) mmol/L Anion Gap (3-11) BUN (7-18) mg/dl Creatinine (0.6-1.4) mg/dl Est Cr Clr Drug Dosing ml/min Est GFR ( Amer) Est GFR (Non-Af Amer) BUN/Creatinine Ratio (10-20) Glucose (70-99) mg/dl Calcium (8.5-10.1) mg/dl Magnesium (1.8-2.4) mg/dl Total Bilirubin (0.2-1) mg/dl AST (15-37) U/L ALT (12-78) U/L Alkaline Phosphatase (45-117) U/L Troponin I (0-0.045) ng/ml Total Protein (6.4-8.2) gm/dl Albumin (3.4-5.0) gm/dl Globulin (2.5-4.0) gm/dl Albumin/Globulin Ratio (0.9-2) TSH (0.300-4.500) uIu/ml Urine Color Yellow Urine Appearance Clear (Clear) Urine pH 7.0 (4.5-7.5) Ur Specific [place] 1.008 (1.000-1.030) Urine Protein 1+ H (Negative) Urine Glucose (UA) 1+ H (Negative) Urine Ketones Negative (Negative) Urine Blood Negative (Negative) Urine Nitrite Negative (Negative) Urine Bilirubin Negative (Negative) Urine Urobilinogen Negative (Negative) Ur Leukocyte Esterase Negative (Negative) Urine WBC (Auto) 0 (0-5) /hpf Urine RBC (Auto) 0-4 (0-4) /hpf U Hyaline Cast (Auto) 0 (0-5) /lpf U Epithel Cells (Auto) 0-5 (0-5) /lpf Urine Bacteria (Auto) Negative (Negative) Imaging Data Radiologist's Impression: Radiology results as stated below per my review and the radiologist's interpretation: XR chest 1V portable HISTORY: 59 years-old Male weakness acute weakness COMPARISON: Chest radiographs 01/15/2019 TECHNIQUE: Portable AP view of the chest FINDINGS: Cardiac silhouette is enlarged, unchanged. Mild pulmonary vascular congestion. No pneumothorax, large pleural effusion or focal airspace consolidation. Deg enerative changes of the shoulders and spine. IMPRESSION: Cardiomegaly with pulmonary vascular congestion. The above report was generated using voice recognition software. It may contain grammatical, syntax or spelling errors. Electronically signed by: Steve Beckman M.D. 04/23/2019 3:46 PM ECG Data Attestation: I personally reviewed and interpreted this ECG as follows: Indication: + palpitations Rate (beats per minute): 124 Rhythm: + atrial flutter ECG ST segments: + ST depression (lateral ) ECG Findings: + PVCs (frequent) Comparison ECG Date: from (01/13/19) Change: no significant change Blood Pressure Blood Pressure Findings: Normal blood pressure MDM Narrative The patient is a 59-year-old male who presented to the emergency department for an evaluation of palpitations. The patient has had episodes of diarrhea throughout the week. He was seen by his primary cardiology group and sent to the emergency department for further evaluation of rapid atrial fibrillation. I discussed patient's laboratory and radiographic studies with him. He was reevaluated multiple times. The patient was treated with IV Lopressor as well as IV fluids. His symptoms slowly improved but he was still found to be in atrial fibrillation with rapid ventricular response. For this reason I discussed his case with the on-call [facility] hospitalist group. They have agreed to evaluate the patient in the emergency department for further management disposition. Impression & Plan Atrial flutter with rapid ventricular response, Atrial fibrillation Discharge Plan Visit Data *Final* Discharge Date/Time: 04/23/19 18:57 Chief Complaint: Cardiac Assessment Stated Complaint: AFIB ED Provider: Mahad Peters Discharge Problem: Atrial flutter with rapid ventricular response, Atrial fibrillation Patient Disposition: Admitted As Inpatient Discharge Instructions Interventions: ED Discharge Assessment Last Done: 04/23/19 18:57 Discharge Problem: Atrial fibrillation Qualifiers: Atrial fibrillation type: unspecified Qualified Code(s): I48.91 - Unspecified atrial fibrillation The scribe's documentation has been prepared under my direction and personally reviewed by me in its entirety. I confirm that the note above accurately reflects all work, treatment, procedures, and medical decision making performed by me.
[2019-04-23 15:48] LABS: Basophils # (auto) 0.05 K/uL (0-0.2); Basophils % (auto) 0.7 %; Eosinophils # (auto) 0.26 K/uL (0-0.5); Eosinophils % (auto) 3.6 %; Hematocrit (blood only) 41.7 % (42-52); Hemoglobin 14.3 g/dL (14.0-18.0); Immature Granulocytes # (auto) 0.01 K/uL (0.00-0.02); Immature Granulocytes % (auto) 0.1 %; Lymphocytes # (auto) 2.84 K/uL (1.2-3.4); Lymphocytes % (auto) 39.5 %; Mean Corpuscular Hemoglobin 33.2 pg (25-34); Mean Corpuscular Hgb Conc 34.3 g/dL (32-36); Mean Corpuscular Volume 96.8 fL (80-100); Mean Platelet Volume 10.4 fL (7.4-10.4); Monocytes # (auto) 0.72 K/uL (0.11-0.59); Neutrophils # (auto) 3.31 K/uL (1.4-6.5); Neutrophils % (auto) 46.1 %; Platelet Count 191 K/uL (130-400); RDW Coefficient of Variation 16.1 % (11.5-14.5); RDW Standard Deviation 55.9 fL (36.4-46.3); Red Blood Count 4.31 M/uL (4.7-6.1); White Blood Count 7.19 K/uL (4.8-10.8)
--- NOTE | 2019-04-23 15:48 | XRay Report ---
XR chest 1V portable HISTORY: 59 years-old Male weakness acute weakness COMPARISON: Chest radiographs 01/15/2019 TECHNIQUE: Portable AP view of the chest FINDINGS: Cardiac silhouette is enlarged, unchanged. Mild pulmonary vascular congestion. No pneumothorax, large pleural effusion or focal airspace consolidation. Degenerative changes of the shoulders and spine. IMPRESSION: Cardiomegaly with pulmonary vascular congestion. The above report was generated using voice recognition software. It may contain grammatical, syntax o r spelling errors. Electronically signed by: Steve Beckman M.D. 04/23/2019 3:46 PM
[2019-04-23 16:00] LABS: INR 1.9 (0.9-1.1); Partial Thromboplastin Time 26.8 Seconds (21.0-31.0)
[2019-04-23 16:10] LABS: Alanine Aminotransferase 20 U/L (12-78); Albumin Level 4.1 gm/dl (3.4-5.0); Aspartate Aminotransferase 9 U/L (15-37); BUN Creatinine Ratio 6.8 (10-20); Blood Urea Nitrogen 6 mg/dl (7-18); Calcium 9.3 mg/dl (8.5-10.1); Carbon Dioxide 25 mmol/L (21-32); Chloride 104 mmol/L (98-107); Creatinine Clr Calc Pharmacy 114.1 ml/min; Est GFR (African American) 103.2; Glucose 147 mg/dl (70-99); Magnesium 2.1 mg/dl (1.8-2.4); Potassium 3.8 mmol/L (3.5-5.1); Sodium 135 mmol/L (136-145)
[2019-04-23 16:21] LABS: Albumin Globulin Ratio 1.2 (0.9-2); Alkaline Phosphatase 81 U/L (45-117); Bilirubin,Total 0.6 mg/dl (0.2-1); Globulin 3.4 gm/dl (2.5-4.0); Total Protein 7.5 gm/dl (6.4-8.2); Troponin I < 0.015 ng/ml (0-0.045)
[2019-04-23 16:56] LABS: Appearance Urine Clear (Clear); Bacteria Urine Automated Negative (Negative); Bilirubin Urine Negative (Negative); Blood Urine Negative (Negative); Cast Urine Automated 0 /lpf (0-5); Color Urine Yellow; Epithelial Cell Urine Auto 0-5 /lpf (0-5); Glucose Urine UA 1+ (Negative); Ketones Urine Negative (Negative); Leukocyte Esterase Urine Negative (Negative); Nitrite Urine Negative (Negative); Protein Urine 1+ (Negative); RBC Urine Automated 0-4 /hpf (0-4); Specific Gravity Urine 1.008 (1.000-1.030); Urobilinogen Urine Negative (Negative); WBC Urine Automated 0 /hpf (0-5)
--- NOTE | 2019-04-23 18:07 | History & Physical Report ---
Date of Service April 23, 2019 Assessment & Plan (1) Atrial flutter with rapid ventricular response: Recent cardioversion and was on Eliquis which was changed to Coumadin Has been having gastroenteritis with nausea, vomiting and diarrhea for the last few days Was seen in the cardiology clinic and noted to have atrial flutter with rapid ventricular response and was sent in the emergency room Received so far 3 doses of IV Lopressor 5 mg each Heart rate remained around 118 Discussed with cardiology Will admit to telemetry Continue current dose of beta-tao (2) Gastroenteritis: Recent gastroenteritis with nausea, vomiting and diarrhea Has been improving Component of dehydration Will give intravenous fluid (3) HTN (hypertension): Blood pressure seems to be under control (4) T2DM (type 2 diabetes mellitus): Hold metformin We will put him on sliding scale insulin coverage (5) HLD (hyperlipidemia): Continues to (6) CAD (coronary artery disease): No acute cardiac symptoms DVT prophylax Has been on Coumadin CODE STATUS Full History of Present Illness Chief Complaint: Noted to have A. fib with RVR in the clinic, recent probable gastroenteritis Primary Care Provider: Ajit Wood DO Is a 59-year-old male with significant past medical history including atrial flutter with recent cardioversion has been on Coumadin and beta-tao and other medical condition as mentioned in the medical history apparently was seen in the cardiology clinic today and was noted to have atrial flutter with RVR. He has been complaining of some stomach upset for the last 5 days with nausea vomiting and diarrhea and that has been receding. He denies any fever and/or chills, no history of chest pain or palpitation, no shortness of breath. Denies any problem with his urine and his diarrhea has been improving. Denies any headache blurred vision or any numbness or tingling involving any of the extremities. In the ER he was noted to have EKG finding of atrial flutter with a rate of 125 and his lab works remained unremarkable. He was admitted to to the telemetry unit for continuation of care. Allergies Allergy/AdvReac Type Severity Reaction Status Date / Time codeine Allergy Intermediate GI Verified 04/23/19 17:03 SYMPTOMS and tachycardia morphine Allergy Intermediate GI SYMPTOMS Verified 04/23/19 17:03 cyclobenzaprine Allergy Unknown Unknown Verified 04/23/19 17:05 gabapentin Allergy Unknown Unknown Verified 04/23/19 17:05 Sulfa (Sulfonamide Allergy Unknown unknown Verified 04/23/19 17:03 Antibiotics) tramadol Allergy Unknown Unknown Verified 04/23/19 17:05 Home Medications Home Medications Medication Instructions Recorded Confirmed Type cholecalciferol (vitamin D3) 1,000 unit PO QAM 07/20/18 04/23/19 History [Vitamin D3] metformin 1,000 mg PO BID 07/20/18 04/23/19 History multivitamin 1 tab PO QAM 07/20/18 04/23/19 History omega 9-vcu-kkj-fish oil [Fish Oil] 2 cap PO QAM 07/20/18 04/23/19 History zinc 50 mg PO QAM 07/20/18 04/23/19 History magnesium 250 mg PO DAILY 04/23/19 04/23/19 History metoprolol succinate 25 mg PO DAILY 04/23/19 04/23/19 History warfarin [Coumadin] 5 mg PO .QMON 04/23/19 04/23/19 History warfarin [Jantoven] 10 mg PO [id number] 04/23/19 04/23/19 History Past Med/Surg History Medical History Alcohol abuse CAD (coronary artery disease) History of tobacco abuse HLD (hyperlipidemia) HTN (hypertension) (Acute) Paroxysmal atrial flutter T2DM (type 2 diabetes mellitus) Surgical History History of colonoscopy History of heart artery stent RCA 09/03; L circumflex 05/06 History of tonsillectomy and adenoidectomy Family History Father Coronary heart disease Hypertension Mother Coronary heart disease Brother Diabetes Other No known problems Social History Preferred Language: Turkmen Communication Ability: Effective 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 Required: No Beliefs That Will Affect Care: None marital status: Current Living Situation: Spouse current occupational status: employed Other Information That Helps Us Care for You: No Feels Safe at Home: Yes Safety Concerns: Feels Safe At This Time Smoking Status: Former smoker Tobacco Type: cigarettes ; Second Hand Exposure: No ; Hx Alcohol Use: Yes Alcohol type: hard liquor Alcohol type Comment: 3-4 shots 4 days a week Alcohol Intake Frequency: Daily Hx Substance Use: No Review of Systems Review of Systems: All systems reviewed & are unremarkable except as noted in HPI & below Physical Exam Physical Exam: Lying in bed comfortably Constitutional: well developed and well nourished; no acute distress and not ill appearing Eyes: PERRL, conjunctivae normal, anicteric sclerae ENMT: external ear and nose normal, oropharynx normal Neck: trachea midline, no thyromegaly Respiratory: normal respiratory effort; no respiratory distress Auscultation: lungs clear to auscultation bilaterally Cardiovascular: Rate/Rhythm: regular rate and regular rhythm Heart Sounds: no murmur Gastrointestinal (Abdomen): Inspection/Auscultation: abdomen normal to inspection and normal bowel sounds; abdomen not distended Percussion/Palpation: abdomen nontender Musculoskeletal: No acute arthritis in any joint Neurologic: Alert, awake and oriented x3 Lymphatic: no cervical or axillary lymphadenopathy Results & Data Vital Signs (Past 12 Hours) Vital Signs Temp Pulse Resp BP Pulse Ox 04/23/19 17:31 118 H 123/93 04/23/19 17:30 118 H 19 123/93 95 04/23/19 17:15 120 H 18 128/91 96 04/23/19 17:00 120 H 23 129/92 95 04/23/19 16:45 126 H 16 140/91 95 04/23/19 16:38 121 H 15 119/91 96 04/23/19 16:30 121 H 12 117/85 96 04/23/19 16:15 123 H 15 118/95 94 04/23/19 16:00 122 H 17 126/97 96 04/23/19 15:45 125 H 20 128/91 95 04/23/19 15:39 123 H 18 98 04/23/19 15:35 95 04/23/19 15:26 123 H 24 136/96 97 04/23/19 15:24 36.4 C L 125 H 22 136/96 97 Laboratory Results Short CBC 04/23/19 Range/Units 15:35 WBC 7.19 (4.8-10.8) K/uL Hgb 14.3 (14.0-18.0) g/dL Hct 41.7 L (42-52) % Plt Count 191 (130-400) K/uL BMP 04/23/19 15:35 Sodium 135 L Potassium 3.8 Chloride 104 Carbon Dioxide 25 BUN 6 L Creatinine 0.94 Glucose 147 H Calcium 9.3 Cardiac Enzymes 04/23/19 Range/Units 15:35 Troponin I < 0.015 (0-0.045) ng/ml Liver Function 04/23/19 Range/Units 15:35 Total Bilirubin 0.6 (0.2-1) mg/dl AST 9 L (15-37) U/L ALT 20 (12-78) U/L Alkaline Phosphatase 81 (45-117) U/L Albumin 4.1 (3.4-5.0) gm/dl Urine 04/23/19 Range/Units 16:40 Urine Color Yellow Urine Appearance Clear (Clear) Urine pH 7.0 (4.5-7.5) Ur Specific [place] 1.008 (1.000-1.030) Urine Protein 1+ H (Negative) Urine Glucose (UA) 1+ H (Negative) Medications Administered Current Inpatient Medications Potassium Chloride/Sodium Chloride (Normal Saline W/20 Meq Kcl) 20 meq in 1,000 mls @ 125 mls/hr IV .Q8H BRITTANI Stop: 04/24/19 17:59 Insulin Aspart (Novolog Flexpen) 0 units SC ACHS BRITTANI Stop: 05/23/19 20:59 Code Status & VTE Plan VTE Prophylaxis Plan VTE Prophylaxis will be ordered: Yes (1) HTN (hypertension) Hypertension type: essential hypertension Qualified Code(s): I10 - Essential (primary) hypertension
[2019-04-23] MEDS ORDERED: CARBOHYDRATES FOR HYPOGLYCEMIA PO PRN (19:45)
[2019-04-23] MEDS ORDERED: GLUCOSE 10 TABS/TUBE PO PRN (19:45)
[2019-04-23] MEDS ORDERED: GLUCAGON FOR INJ 1 MG VIAL IM PRN (19:45)
[2019-04-23] MEDS ORDERED: GLUCOSE 40% GEL 15 GM TUBE PO PRN (19:45)
[2019-04-23] MEDS ORDERED: DEXTROSE 50% 50 ML SYRINGE IV PRN (19:45)
[2019-04-23] MEDS: NSS + 20MEQ KCL 20 MEQ/1,000 ML BAG IV SCH (20:42)
[2019-04-23] MEDS: WARFARIN SOD 10 MG TAB PO SCH (20:43)
[2019-04-23] MEDS: INSULIN ASPART 100 UNITS/ML 3 ML PEN SC SCH (20:45)
[2019-04-23] MEDS ORDERED: POTASSIUM CHLORIDE 20 MEQ TABCR PO STA (21:31)
[2019-04-23] MEDS ORDERED: METOPROLOL SUCC 25MG EXT REL TAB PO SCH (21:45)
[2019-04-23] MEDS ORDERED: LACTATED RINGER'S 1,000 ML IV ONE (23:05)
[2019-04-24] MEDS ORDERED: dilTIAZem HCl 5 MG/ML 5 ML VIAL IV STA (00:38)
[2019-04-24] MEDS: NSS + 20MEQ KCL 20 MEQ/1,000 ML BAG IV SCH ×2 (04:33→12:42)
[2019-04-24] MEDS ORDERED: METOPROLOL SUCC 50MG EXT REL TAB PO SCH (05:45)
[2019-04-24 06:49] LABS: Basophils # (auto) 0.04 K/uL (0-0.2); Basophils % (auto) 0.6 %; Eosinophils # (auto) 0.12 K/uL (0-0.5); Eosinophils % (auto) 1.9 %; Hemoglobin 13.2 g/dL (14.0-18.0); Immature Granulocytes # (auto) 0.01 K/uL (0.00-0.02); Immature Granulocytes % (auto) 0.2 %; Lymphocytes # (auto) 1.83 K/uL (1.2-3.4); Lymphocytes % (auto) 28.2 %; Mean Corpuscular Hemoglobin 32.8 pg (25-34); Mean Corpuscular Hgb Conc 33.8 g/dL (32-36); Mean Corpuscular Volume 96.8 fL (80-100); Mean Platelet Volume 10.2 fL (7.4-10.4); Monocytes % (auto) 9.3 %; Neutrophils # (auto) 3.88 K/uL (1.4-6.5); Neutrophils % (auto) 59.8 %; Platelet Count 188 K/uL (130-400); RDW Coefficient of Variation 16.4 % (11.5-14.5); RDW Standard Deviation 57.3 fL (36.4-46.3); Red Blood Count 4.03 M/uL (4.7-6.1); White Blood Count 6.48 K/uL (4.8-10.8)
[2019-04-24 07:27] LABS: BUN Creatinine Ratio 7.8 (10-20); Calcium 8.7 mg/dl (8.5-10.1); Creatinine Clr Calc Pharmacy 132.4 ml/min; Est GFR (African American) 113.5; Magnesium 2.2 mg/dl (1.8-2.4); Potassium 4.4 mmol/L (3.5-5.1)
--- NOTE | 2019-04-24 08:07 | Hospitalist Progress Note ---
Date of Service April 24, 2019 Assessment & Plan (1) Atrial flutter with rapid ventricular response: Recent cardioversion and was on Eliquis which was changed to Coumadin Has been having gastroenteritis with nausea, vomiting and diarrhea for the last few days Was seen in the cardiology clinic and noted to have atrial flutter with rapid ventricular response and was sent in the emergency room Received so far 3 doses of IV Lopressor 5 mg each Heart rate remained around 118 Patient was admitted for telemetry, remained tachycardic overnight Cardiology consulted, plan to start sotalol, patient's INR was 1.9, will be started on IV heparin We will continue to closely monitor (2) Gastroenteritis: Recent gastroenteritis with nausea, vomiting and diarrhea Has been improving Component of dehydration Received intravenous fluid overnight, however with not much improvement in tachycardia (3) HTN (hypertension): Blood pressure seems to be under control (4) T2DM (type 2 diabetes mellitus): Hold metformin We will put him on sliding scale insulin coverage (5) HLD (hyperlipidemia): Continue his fish oil/ omega-3s (6) CAD (coronary artery disease): No acute cardiac symptoms DVT prophylax Has been on Coumadin, now on IV heparin as INR was 1.9 CODE STATUS Full Subjective Patient admitted after finding to be in a flutter with RVR during his cardiology appointment. Overnight he continues to be tachycardic (despite IV fluids and IV metoprolol), otherwise asymptomatic. Patient has no palpitations, chest pain, shortness of breath, dizziness or lightheadedness. He also denies any fevers, chills, abdominal pain, nausea or vomiting. Review of Systems Review of Systems: All systems reviewed & are unremarkable except as noted in HPI & below Constitutional: no fever, no chills and no fatigue Respiratory: no cough, no dyspnea and no pain on inspiration Cardiovascular: no chest pain, no dyspnea on exertion and no palpitations Gastrointestinal: no abdominal pain, no nausea and no vomiting Physical Exam Physical Exam: Physical Exam: Elderly male lying in bed in no acute distress, comfortable Constitutional: well developed and well nourished; no acute distress and not ill appearing Eyes: PERRL, conjunctivae normal, anicteric sclerae ENMT: external ear and nose normal, oropharynx normal Neck: trachea midline, no thyromegaly Respiratory: normal respiratory effort; no respiratory distress Auscultation: lungs clear to auscultation bilaterally Cardiovascular: Rate/Rhythm: regular rate and regular rhythm Heart Sounds: no murmur Gastrointestinal (Abdomen): Inspection/Auscultation: abdomen normal to inspection and normal bowel sounds; abdomen not distended Percussion/Palpation: abdomen nontender Musculoskeletal: Moves all 4 extremities spontaneously Neurologic: Alert, awake and oriented x3, speech fluent, no facial asymmetry, moves all 4 extremities spontaneously Lymphatic: no cervical or axillary lymphadenopathy Results & Data Vital Signs (Past 12 Hours) Vital Signs Temp Pulse Pulse Pulse Resp BP BP 04/24/19 07:00 36.3 C L 121 H 18 142/98 H 04/24/19 04:00 36.7 C 119 H 19 135/86 04/24/19 01:28 123 H 118/80 04/24/19 00:06 121 H 04/24/19 00:00 36.7 C 120 H 19 123/82 04/23/19 21:27 120 H 127/77 Pulse Ox 04/24/19 07:00 94 04/24/19 04:00 94 04/24/19 01:28 04/24/19 00:06 04/24/19 00:00 95 04/23/19 21:27 Laboratory Results 04/24/19 04/24/19 04/24/19 Range/Units 07:29 06:17 06:17 WBC 6.48 (4.8-10.8) K/uL RBC 4.03 L (4.7-6.1) M/uL Hgb 13.2 L (14.0-18.0) g/dL Hct 39.0 L (42-52) % MCV 96.8 (80-100) fL MCH 32.8 (25-34) pg MCHC 33.8 (32-36) g/dL RDW Std Deviation 57.3 H (36.4-46.3) fL RDW Coeff of Mychal 16.4 H (11.5-14.5) % Plt Count 188 (130-400) K/uL MPV 10.2 (7.4-10.4) fL Immature Gran % (Auto) 0.2 % Neut % (Auto) 59.8 % Lymph % (Auto) 28.2 % [place] % (Auto) 9.3 % Eos % (Auto) 1.9 % Baso % (Auto) 0.6 % Immature Gran # (Auto) 0.01 (0.00-0.02) K/uL Neut # (Auto) 3.88 (1.4-6.5) K/uL Lymph # (Auto) 1.83 (1.2-3.4) K/uL [place] # (Auto) 0.60 H (0.11-0.59) K/uL Eos # (Auto) 0.12 (0-0.5) K/uL Baso # (Auto) 0.04 (0-0.2) K/uL PT (9.0-12.0) Seconds INR (0.9-1.1) APTT (21.0-31.0) Seconds PTT Ratio Sodium 137 (136-145) mmol/L Potassium 4.4 D (3.5-5.1) mmol/L Chloride 106 (98-107) mmol/L Carbon Dioxide 25 (21-32) mmol/L Anion Gap 6.0 (3-11) BUN 6 L (7-18) mg/dl Creatinine 0.81 (0.6-1.4) mg/dl Est Cr Clr Drug Dosing 132.4 ml/min Est GFR ( Amer) 113.5 Est GFR (Non-Af Amer) 98.0 BUN/Creatinine Ratio 7.8 L (10-20) Glucose 155 H (70-99) mg/dl POC Glucose 164 H (70-99) Calcium 8.7 (8.5-10.1) mg/dl Magnesium 2.2 (1.8-2.4) mg/dl Total Bilirubin (0.2-1) mg/dl AST (15-37) U/L ALT (12-78) U/L Alkaline Phosphatase (45-117) U/L Troponin I (0-0.045) ng/ml Total Protein (6.4-8.2) gm/dl Albumin (3.4-5.0) gm/dl Globulin (2.5-4.0) gm/dl Albumin/Globulin Ratio (0.9-2) TSH (0.300-4.500) uIu/ml Urine Color Urine Appearance (Clear) Urine pH (4.5-7.5) Ur Specific [place] (1.000-1.030) Urine Protein (Negative) Urine Glucose (UA) (Negative) Urine Ketones (Negative) Urine Blood (Negative) Urine Nitrite (Negative) Urine Bilirubin (Negative) Urine Urobilinogen (Negative) Ur Leukocyte Esterase (Negative) Urine WBC (Auto) (0-5) /hpf Urine RBC (Auto) (0-4) /hpf U Hyaline Cast (Auto) (0-5) /lpf U Epithel Cells (Auto) (0-5) /lpf Urine Bacteria (Auto) (Negative) 04/23/19 04/23/19 04/23/19 Range/Units 19:58 16:40 15:35 WBC (4.8-10.8) K/uL RBC (4.7-6.1) M/uL Hgb (14.0-18.0) g/dL Hct (42-52) % MCV (80-100) fL MCH (25-34) pg MCHC (32-36) g/dL RDW Std Deviation (36.4-46.3) fL RDW Coeff of Mychal (11.5-14.5) % Plt Count (130-400) K/uL MPV (7.4-10.4) fL Immature Gran % (Auto) % Neut % (Auto) % Lymph % (Auto) % [place] % (Auto) % Eos % (Auto) % Baso % (Auto) % Immature Gran # (Auto) (0.00-0.02) K/uL Neut # (Auto) (1.4-6.5) K/uL Lymph # (Auto) (1.2-3.4) K/uL [place] # (Auto) (0.11-0.59) K/uL Eos # (Auto) (0-0.5) K/uL Baso # (Auto) (0-0.2) K/uL PT (9.0-12.0) Seconds INR (0.9-1.1) APTT (21.0-31.0) Seconds PTT Ratio Sodium 135 L (136-145) mmol/L Potassium 3.8 (3.5-5.1) mmol/L Chloride 104 (98-107) mmol/L Carbon Dioxide 25 (21-32) mmol/L Anion Gap 6.0 (3-11) BUN 6 L (7-18) mg/dl Creatinine 0.94 (0.6-1.4) mg/dl Est Cr Clr Drug Dosing 114.1 ml/min Est GFR ( Amer) 103.2 Est GFR (Non-Af Amer) 89.0 BUN/Creatinine Ratio 6.8 L (10-20) Glucose 147 H (70-99) mg/dl POC Glucose 153 H (70-99) Calcium 9.3 (8.5-10.1) mg/dl Magnesium 2.1 (1.8-2.4) mg/dl Total Bilirubin 0.6 (0.2-1) mg/dl AST 9 L (15-37) U/L ALT 20 (12-78) U/L Alkaline Phosphatase 81 (45-117) U/L Troponin I < 0.015 (0-0.045) ng/ml Total Protein 7.5 (6.4-8.2) gm/dl Albumin 4.1 (3.4-5.0) gm/dl Globulin 3.4 (2.5-4.0) gm/dl Albumin/Globulin Ratio 1.2 (0.9-2) TSH 3.510 (0.300-4.500) uIu/ml Urine Color Yellow Urine Appearance Clear (Clear) Urine pH 7.0 (4.5-7.5) Ur Specific [place] 1.008 (1.000-1.030) Urine Protein 1+ H (Negative) Urine Glucose (UA) 1+ H (Negative) Urine Ketones Negative (Negative) Urine Blood Negative (Negative) Urine Nitrite Negative (Negative) Urine Bilirubin Negative (Negative) Urine Urobilinogen Negative (Negative) Ur Leukocyte Esterase Negative (Negative) Urine WBC (Auto) 0 (0-5) /hpf Urine RBC (Auto) 0-4 (0-4) /hpf U Hyaline Cast (Auto) 0 (0-5) /lpf U Epithel Cells (Auto) 0-5 (0-5) /lpf Urine Bacteria (Auto) Negative (Negative) 04/23/19 04/23/19 Range/Units 15:35 15:35 WBC 7.19 (4.8-10.8) K/uL RBC 4.31 L (4.7-6.1) M/uL Hgb 14.3 (14.0-18.0) g/dL Hct 41.7 L (42-52) % MCV 96.8 (80-100) fL MCH 33.2 (25-34) pg MCHC 34.3 (32-36) g/dL RDW Std Deviation 55.9 H (36.4-46.3) fL RDW Coeff of Mychal 16.1 H (11.5-14.5) % Plt Count 191 (130-400) K/uL MPV 10.4 (7.4-10.4) fL Immature Gran % (Auto) 0.1 % Neut % (Auto) 46.1 % Lymph % (Auto) 39.5 % [place] % (Auto) 10.0 % Eos % (Auto) 3.6 % Baso % (Auto) 0.7 % Immature Gran # (Auto) 0.01 (0.00-0.02) K/uL Neut # (Auto) 3.31 (1.4-6.5) K/uL Lymph # (Auto) 2.84 (1.2-3.4) K/uL [place] # (Auto) 0.72 H (0.11-0.59) K/uL Eos # (Auto) 0.26 (0-0.5) K/uL Baso # (Auto) 0.05 (0-0.2) K/uL PT 19.0 H (9.0-12.0) Seconds INR 1.9 H (0.9-1.1) APTT 26.8 (21.0-31.0) Seconds PTT Ratio 1.0 Sodium (136-145) mmol/L Potassium (3.5-5.1) mmol/L Chloride (98-107) mmol/L Carbon Dioxide (21-32) mmol/L Anion Gap (3-11) BUN (7-18) mg/dl Creatinine (0.6-1.4) mg/dl Est Cr Clr Drug Dosing ml/min Est GFR ( Amer) Est GFR (Non-Af Amer) BUN/Creatinine Ratio (10-20) Glucose (70-99) mg/dl POC Glucose (70-99) Calcium (8.5-10.1) mg/dl Magnesium (1.8-2.4) mg/dl Total Bilirubin (0.2-1) mg/dl AST (15-37) U/L ALT (12-78) U/L Alkaline Phosphatase (45-117) U/L Troponin I (0-0.045) ng/ml Total Protein (6.4-8.2) gm/dl Albumin (3.4-5.0) gm/dl Globulin (2.5-4.0) gm/dl Albumin/Globulin Ratio (0.9-2) TSH (0.300-4.500) uIu/ml Urine Color Urine Appearance (Clear) Urine pH (4.5-7.5) Ur Specific [place] (1.000-1.030) Urine Protein (Negative) Urine Glucose (UA) (Negative) Urine Ketones (Negative) Urine Blood (Negative) Urine Nitrite (Negative) Urine Bilirubin (Negative) Urine Urobilinogen (Negative) Ur Leukocyte Esterase (Negative) Urine WBC (Auto) (0-5) /hpf Urine RBC (Auto) (0-4) /hpf U Hyaline Cast (Auto) (0-5) /lpf U Epithel Cells (Auto) (0-5) /lpf Urine Bacteria (Auto) (Negative) Medications Administered Current Inpatient Medications Dextrose (Dextrose 50%) 25 - 50 ml IV UD PRN; Protocol PRN Reason: Hypoglycemia Protocol Stop: 05/23/19 19:44 Fish Oil ([place]-3 (Purified Fish Oil)) 2 gm PO QAM BRITTANI Stop: 05/24/19 08:59 Glucagon (Glucagen) 1 mg IM UD PRN; Protocol PRN Reason: Hypoglycemia Protocol Stop: 05/23/19 19:44 Glucose (Glucose 40%) 15 - 30 gm PO UD PRN; Protocol PRN Reason: Hypoglycemia Protocol Stop: 05/23/19 19:44 Glucose (Dex4 Glucose) 4 - 8 tabs PO UD PRN; Protocol PRN Reason: Hypoglycemia Protocol Stop: 05/23/19 19:44 Potassium Chloride/Sodium Chloride (Normal Saline W/20 Meq Kcl) 20 meq in 1,000 mls @ 125 mls/hr IV .Q8H BRITTANI Stop: 04/24/19 19:59 Last Admin: 04/24/19 04:33 Dose: 125 mls/hr Documented by: Insulin Aspart (Novolog Flexpen) 0 units SC ACHS BRITTANI Stop: 05/23/19 20:59 Last Admin: 04/23/19 20:45 Dose: 4 units Documented by: Magnesium Oxide (Mag-Ox) 400 mg PO DAILY BRITTANI Stop: 05/24/19 08:59 Metoprolol Succinate (Toprol Xl) 50 mg PO BID [facility] Stop: 05/24/19 05:44 Last Admin: 04/24/19 06:34 Dose: 50 mg Documented by: Miscellaneous (Carbohydrates For Hypoglycemia) 15 - 30 gm PO UD PRN PRN Reason: Hypoglycemia Treatment Stop: 05/23/19 19:44 Multivitamins (Multivitamin Tab) [facility] Stop: 05/24/19 08:59 Vitamin D (Vitamin D3) 1,000 units PO QAM [facility] Stop: 05/24/19 08:59 Warfarin Sodium (Coumadin) 5 mg PO Mo@1600 [facility] Stop: 05/26/19 15:59 Warfarin Sodium (Coumadin) 10 mg PO SuTuWeThFrSa@1600 [facility] Stop: 05/23/19 19:44 Last Admin: 04/23/19 20:43 Dose: 10 mg Documented by: Zinc Sulfate (Zinc Sulfate) 220 mg PO DAILY [facility] Stop: 05/24/19 08:59 (1) HTN (hypertension) Hypertension type: essential hypertension Qualified Code(s): I10 - Essential (primary) hypertension
[2019-04-24] MEDS: OMEGA-3 (PURIFIED FISH OIL) 1 GM CAP PO SCH (08:30)
[2019-04-24] MEDS: MULTIVITAMIN TAB PO SCH (08:31)
[2019-04-24] MEDS: CHOLECALCIFEROL 1,000 UNITS TAB PO SCH (08:31)
[2019-04-24] MEDS: ZINC SULFATE 220 MG CAPSULE PO SCH (08:31)
[2019-04-24] MEDS: MAGNESIUM OXIDE 400 MG TAB PO SCH (08:31)
[2019-04-24] MEDS: INSULIN ASPART 100 UNITS/ML 3 ML PEN SC SCH ×4 (08:32→20:47)
[2019-04-24] MEDS ORDERED: METOPROLOL SUCC 25MG EXT REL TAB PO SCH (09:00)
--- NOTE | 2019-04-24 11:54 | Cardiology Consultation ---
Date of Consultation April 24, 2019 Assessment & Plan (1) Gastroenteritis: (2) Hyperglycemia: (3) Atrial fibrillation: (4) CAD (coronary artery disease): The patient is eating lunch and seems to be in no acute distress, I think we can DC his IV fluids. He has a history of coronary artery disease but normal LV function by echocardiography and his coronary artery disease has been stable so I believe that we can start him on sotalol today. I did review his EKG and I do not believe his QT interval was prolonged, but I think the read out by the computer is wrong due to the atrial flutter. He will remain on telemetry while we load him with sotalol. I will decrease his dose of metoprolol as we start this medication. His INR was 1.9 on admission so I believe he if he spontaneously cardioverted's he was adequately anticoagulated however, I will start him on IV heparin without a bolus until his INR is a little higher. History of Present Illness Attending Physician: Alejandro Pearce MD History of Present Illness This is a 59-year-old male patient whom I first met this past summer when he fell down some stairs at work and presented to the emergency department with back pain and was found to have incidentally been in atrial fibrillation with RVR. He did undergo a MINAL guided cardioversion, returned within 24 hours with shortness of breath and was given diuretics, and then discharged home. I saw him once in follow-up prior to receiving an injection in his back. That occurred about a month ago. His Coumadin was held with a bridge and then re started after the injection was completed. His INR on admission is 1.9. The patient was in his usual state of health until few days ago he developed a gastroenteritis with nausea vomiting and diarrhea. He had a follow-up appointment with Ely Gillette on the day of admission and was noted to be in atrial flutter with RVR. He was completely unaware of being in this arrhythmia. He is once again been admitted to the hospital. He has no cardiac complaints today. He has been given IV fluids and additional beta-tao. His heart rates remain elevated and he remains in a persistent atrial flutter. Past medical history: 1. Atherosclerotic coronary disease s/p acute inferior myocardial infarction September 2003 with primary PTCA of the right coronary artery. 2. Recurrent ischemia May 2005 with acute V-fib arrest with acute PCI of the left circumflex. 3. Paroxysmal atrial flutter s/p elective cardioversion January 2010, April 2011 and December 2018 Allergies Allergy/AdvReac Type Severity Reaction Status Date / Time codeine Allergy Intermediate GI Verified 04/23/19 17:03 SYMPTOMS and tachycardia morphine Allergy Intermediate GI SYMPTOMS Verified 04/23/19 17:03 cyclobenzaprine Allergy Unknown Unknown Verified 04/23/19 17:05 gabapentin Allergy Unknown Unknown Verified 04/23/19 17:05 Sulfa (Sulfonamide Allergy Unknown unknown Verified 04/23/19 17:03 Antibiotics) tramadol Allergy Unknown Unknown Verified 04/23/19 17:05 Home Medications Home Medications Medication Instructions Recorded Confirmed Type cholecalciferol (vitamin D3) 1,000 unit PO QAM 07/20/18 04/23/19 History [Vitamin D3] metformin 1,000 mg PO BID 07/20/18 04/23/19 History multivitamin 1 tab PO QAM 07/20/18 04/23/19 History omega 0-cwy-eku-fish oil [Fish Oil] 2 cap PO QAM 07/20/18 04/23/19 History zinc 50 mg PO QAM 07/20/18 04/23/19 History magnesium 250 mg PO DAILY 04/23/19 04/23/19 History metoprolol succinate 25 mg PO DAILY 04/23/19 04/23/19 History warfarin [Coumadin] 5 mg PO .QMON 04/23/19 04/23/19 History warfarin [Jantoven] 10 mg PO [id number] 04/23/19 04/23/19 History Patient History Medical History Alcohol abuse CAD (coronary artery disease) History of tobacco abuse HLD (hyperlipidemia) HTN (hypertension) (Acute) Paroxysmal atrial flutter T2DM (type 2 diabetes mellitus) Surgical History History of colonoscopy History of heart artery stent RCA 09/03; L circumflex 05/06 History of tonsillectomy and adenoidectomy Family History Father Coronary heart disease Hypertension Mother Coronary heart disease Brother Diabetes Other No known problems Social History (Reviewed 04/24/19 @ 12:15 by TAMMIE Quezada Preferred Language: [place] Islander Communication Ability: Effective Court Supervisor Required: No Beliefs That Will Affect Care: None marital status: Current Living Situation: Spouse current occupational status: employed Other Information That Helps Us Care for You: No Feels Safe at Home: Yes Safety Concerns: Feels Safe At This Time Smoking Status: Former smoker Tobacco Type: cigarettes ; Second Hand Exposure: No ; Hx Alcohol Use: Yes Alcohol type: hard liquor Alcohol type Comment: 3-4 shots 4 days a week Alcohol Intake Frequency: Daily Hx Substance Use: No Review of Systems Review of Systems: All systems reviewed & are unremarkable except as noted in HPI & below Nothing additional to add. Physical Exam Physical Exam: General: no acute distress and stated age Head: normocephalic, no masses, lesions, tenderness or abnormalities Eyes: conjunctiva are pink and non-injected, sclera clear Neck: supple, no adenopathy, no bruits, normal jugular venous pulse, no hepatojugular reflux Chest: normal shape and normal respiratory effort Lungs: clear to auscultation and percussion Cardiac Exam: - irregular rate & rhythm, no murmurs gallops or rubs - normal S1, normal S2 Pulses: 2(+) throughout Abdomen: abdomen soft, non-tender, no abnormal masses and no hepatosplenomegaly Musculoskeletal: no gait disturbance, no joint inflammation, no deforming arthritis Extremities: no edema and no cyanosis Neuro: grossly normal exam Results & Data Vital Signs (Past 12 Hours) Vital Signs Temp Pulse Pulse Pulse Resp BP BP 04/24/19 11:46 36.4 C L 122 H 18 127/84 04/24/19 07:00 36.3 C L 121 H 18 142/98 H 04/24/19 04:00 36.7 C 119 H 19 135/86 04/24/19 01:28 123 H 118/80 04/24/19 00:06 121 H 04/24/19 00:00 36.7 C 120 H 19 123/82 Pulse Ox 04/24/19 11:46 96 04/24/19 07:00 94 04/24/19 04:00 94 04/24/19 01:28 04/24/19 00:06 04/24/19 00:00 95 Laboratory Results Laboratory Results - last 24 hr 04/23/19 04/23/19 04/23/19 15:35 15:35 15:35 WBC 7.19 RBC 4.31 L Hgb 14.3 Hct 41.7 L MCV 96.8 MCH 33.2 MCHC 34.3 RDW Std Deviation 55.9 H RDW Coeff of Mychal 16.1 H Plt Count 191 MPV 10.4 Immature Gran % (Auto) 0.1 Neut % (Auto) 46.1 Lymph % (Auto) 39.5 [place] % (Auto) 10.0 Eos % (Auto) 3.6 Baso % (Auto) 0.7 Immature Gran # (Auto) 0.01 Neut # (Auto) 3.31 Lymph # (Auto) 2.84 [place] # (Auto) 0.72 H Eos # (Auto) 0.26 Baso # (Auto) 0.05 PT 19.0 H INR 1.9 H APTT 26.8 PTT Ratio 1.0 Sodium 135 L Potassium 3.8 Chloride 104 Carbon Dioxide 25 Anion Gap 6.0 BUN 6 L Creatinine 0.94 Est Cr Clr Drug Dosing 114.1 Est GFR ( Amer) 103.2 Est GFR (Non-Af Amer) 89.0 BUN/Creatinine Ratio 6.8 L Glucose 147 H POC Glucose Calcium 9.3 Magnesium 2.1 Total Bilirubin 0.6 AST 9 L ALT 20 Alkaline Phosphatase 81 Troponin I < 0.015 Total Protein 7.5 Albumin 4.1 Globulin 3.4 Albumin/Globulin Ratio 1.2 TSH 3.510 Urine Color Urine Appearance Urine pH Ur Specific [place] Urine Protein Urine Glucose (UA) Urine Ketones Urine Blood Urine Nitrite Urine Bilirubin Urine Urobilinogen Ur Leukocyte Esterase Urine WBC (Auto) Urine RBC (Auto) U Hyaline Cast (Auto) U Epithel Cells (Auto) Urine Bacteria (Auto) 04/23/19 04/23/19 04/24/19 16:40 19:58 06:17 WBC 6.48 RBC 4.03 L Hgb 13.2 L Hct 39.0 L MCV 96.8 MCH 32.8 MCHC 33.8 RDW Std Deviation 57.3 H RDW Coeff of Mychal 16.4 H Plt Count 188 MPV 10.2 Immature Gran % (Auto) 0.2 Neut % (Auto) 59.8 Lymph % (Auto) 28.2 [place] % (Auto) 9.3 Eos % (Auto) 1.9 Baso % (Auto) 0.6 Immature Gran # (Auto) 0.01 Neut # (Auto) 3.88 Lymph # (Auto) 1.83 [place] # (Auto) 0.60 H Eos # (Auto) 0.12 Baso # (Auto) 0.04 PT INR APTT PTT Ratio Sodium Potassium Chloride Carbon Dioxide Anion Gap BUN Creatinine Est Cr Clr Drug Dosing Est GFR ( Amer) Est GFR (Non-Af Amer) BUN/Creatinine Ratio Glucose POC Glucose 153 H Calcium Magnesium Total Bilirubin AST ALT Alkaline Phosphatase Troponin I Total Protein Albumin Globulin Albumin/Globulin Ratio TSH Urine Color Yellow Urine Appearance Clear Urine pH 7.0 Ur Specific [place] 1.008 Urine Protein 1+ H Urine Glucose (UA) 1+ H Urine Ketones Negative Urine Blood Negative Urine Nitrite Negative Urine Bilirubin Negative Urine Urobilinogen Negative Ur Leukocyte Esterase Negative Urine WBC (Auto) 0 Urine RBC (Auto) 0-4 U Hyaline Cast (Auto) 0 U Epithel Cells (Auto) 0-5 Urine Bacteria (Auto) Negative 04/24/19 04/24/19 04/24/19 06:17 07:29 11:29 WBC RBC Hgb Hct MCV MCH MCHC RDW Std Deviation RDW Coeff of Mychal Plt Count MPV Immature Gran % (Auto) Neut % (Auto) Lymph % (Auto) [place] % (Auto) Eos % (Auto) Baso % (Auto) Immature Gran # (Auto) Neut # (Auto) Lymph # (Auto) [place] # (Auto) Eos # (Auto) Baso # (Auto) PT INR APTT PTT Ratio Sodium 137 Potassium 4.4 D Chloride 106 Carbon Dioxide 25 Anion Gap 6.0 BUN 6 L Creatinine 0.81 Est Cr Clr Drug Dosing 132.4 Est GFR ( Amer) 113.5 Est GFR (Non-Af Amer) 98.0 BUN/Creatinine Ratio 7.8 L Glucose 155 H POC Glucose 164 H 152 H Calcium 8.7 Magnesium 2.2 Total Bilirubin AST ALT Alkaline Phosphatase Troponin I Total Protein Albumin Globulin Albumin/Globulin Ratio TSH Urine Color Urine Appearance Urine pH Ur Specific [place] Urine Protein Urine Glucose (UA) Urine Ketones Urine Blood Urine Nitrite Urine Bilirubin Urine Urobilinogen Ur Leukocyte Esterase Urine WBC (Auto) Urine RBC (Auto) U Hyaline Cast (Auto) U Epithel Cells (Auto) Urine Bacteria (Auto) Medications Administered Current Inpatient Medications Dextrose (Dextrose 50%) 25 - 50 ml IV UD PRN; Protocol PRN Reason: Hypoglycemia Protocol Stop: 05/23/19 19:44 Fish Oil ([place]-3 (Purified Fish Oil)) 2 gm PO QAM BRITTANI Stop: 05/24/19 08:59 Last Admin: 04/24/19 08:30 Dose: 2 gm Documented by: Glucagon (Glucagen) 1 mg IM UD PRN; Protocol PRN Reason: Hypoglycemia Protocol Stop: 05/23/19 19:44 Glucose (Glucose 40%) 15 - 30 gm PO UD PRN; Protocol PRN Reason: Hypoglycemia Protocol Stop: 05/23/19 19:44 Glucose (Dex4 Glucose) 4 - 8 tabs PO UD PRN; Protocol PRN Reason: Hypoglycemia Protocol Stop: 05/23/19 19:44 Potassium Chloride/Sodium Chloride (Normal Saline W/20 Meq Kcl) 20 meq in 1,000 mls @ 125 mls/hr IV .Q8H BRITTANI Stop: 04/24/19 19:59 Last Admin: 04/24/19 04:33 Dose: 125 mls/hr Documented by: Insulin Aspart (Novolog Flexpen) 0 units SC ACHS BRITTANI Stop: 05/23/19 20:59 Last Admin: 04/24/19 12:06 Dose: 6 units Documented by: Magnesium Oxide (Mag-Ox) 400 mg PO DAILY BRITTANI Stop: 05/24/19 08:59 Last Admin: 04/24/19 08:31 Dose: 400 mg Documented by: Metoprolol Succinate (Toprol Xl) 50 mg PO BID [facility]ANI Stop: 05/24/19 05:44 Last Admin: 04/24/19 06:34 Dose: 50 mg Documented by: Miscellaneous (Carbohydrates For Hypoglycemia) 15 - 30 gm PO UD PRN PRN Reason: Hypoglycemia Treatment Stop: 05/23/19 19:44 Multivitamins (Multivitamin Tab) 1 tab PO QAM BRITTANI Stop: 05/24/19 08:59 Last Admin: 04/24/19 08:31 Dose: 1 tab Documented by: Sotalol HCl (Betapace) 80 mg PO BID [facility] Stop: 05/24/19 20:59 Vitamin D (Vitamin D3) 1,000 units PO QAM BRITTANI Stop: 05/24/19 08:59 Last Admin: 04/24/19 08:31 Dose: 1,000 units Documented by: Warfarin Sodium (Coumadin) 5 mg PO Mo@1600 [facility] Stop: 05/26/19 15:59 Warfarin Sodium (Coumadin) 10 mg PO [id number]@1600 [facility] Stop: 05/23/19 19:44 Last Admin: 04/23/19 20:43 Dose: 10 mg Documented by: Zinc Sulfate (Zinc Sulfate) 220 mg PO DAILY [facility] Stop: 05/24/19 08:59 Last Admin: 04/24/19 08:31 Dose: 220 mg Documented by: (1) Atrial fibrillation Atrial fibrillation type: unspecified Qualified Code(s): I48.91 - Unspecified atrial fibrillation
[2019-04-24] MEDS ORDERED: SOTALOL HCL 80 MG TAB PO ONE (12:02)
[2019-04-24] MEDS: HEPARIN SODIUM/DEXTROSE 25,000 UNITS/500 ML BAG IV SCH (13:43)
[2019-04-24] MEDS: Heparin IV Standard *NO* Bolus IV SCH ×2 (14:02→14:04)
[2019-04-24] MEDS: WARFARIN SOD 10 MG TAB PO SCH (17:25)
[2019-04-24] MEDS: METOPROLOL SUCC 25MG EXT REL TAB PO SCH (20:28)
[2019-04-24] MEDS ORDERED: SOTALOL HCL 80 MG TAB PO SCH (21:00)
--- NOTE | 2019-04-24 21:35 | XRay Report ---
SINGLE VIEW CHEST CLINICAL HISTORY: Dyspnea. FINDINGS: 2 AP, portable, upright chest radiographs are compared to study dated 04/23/2019 and correl ated with chest CT dated 01/13/2019. The examination is degraded by portable technique and apical lord otic positioning. The heart is enlarged and there is pulmonary vascular congestion. No large pleural effusion is identified. Atelectasis is seen at the lung bases. No pneumothorax is seen. The bony tho rax is grossly intact. IMPRESSION: 1. Cardiomegaly with pulmonary vascular congestion. 2. No airspace consolidation or large pleural effusion is identified. Electronically signed by: Clifford Brizuela M.D. 04/24/2019 9:34 PM
[2019-04-24] MEDS: LORazepam 0.25 MG/0.5 ML VIAL IV PRN (22:07)
[2019-04-25] MEDS ORDERED: FUROSEMIDE 20 MG in SYRINGE 0 ML IV ONE
[2019-04-25] MEDS: HEPARIN SODIUM/DEXTROSE 25,000 UNITS/500 ML BAG IV SCH (04:42)
[2019-04-25 06:05] LABS: Hemoglobin 13.7 g/dL (14.0-18.0); Mean Corpuscular Hemoglobin 33.3 pg (25-34); Mean Corpuscular Hgb Conc 34.3 g/dL (32-36); Mean Corpuscular Volume 97.3 fL (80-100); Mean Platelet Volume 10.3 fL (7.4-10.4); Platelet Count 178 K/uL (130-400); RDW Coefficient of Variation 16.4 % (11.5-14.5); RDW Standard Deviation 58.3 fL (36.4-46.3); Red Blood Count 4.11 M/uL (4.7-6.1); White Blood Count 6.55 K/uL (4.8-10.8)
[2019-04-25 06:31] LABS: INR 2.3 (0.9-1.1); Partial Thromboplastin Ratio 2.5; Prothrombin Time 22.6 Seconds (9.0-12.0)
[2019-04-25 06:37] LABS: Partial Thromboplastin Time 64.7 Seconds (21.0-31.0)
[2019-04-25] MEDS: SOTALOL HCL 80 MG TAB PO SCH ×2 (06:39→20:51)
[2019-04-25 06:44] LABS: BUN Creatinine Ratio 8.2 (10-20); Calcium 8.8 mg/dl (8.5-10.1); Creatinine Clr Calc Pharmacy 114.4 ml/min; Est GFR (African American) 104.5; Est GFR (Non-African American) 90.2; Magnesium 2.1 mg/dl (1.8-2.4); Potassium 4.2 mmol/L (3.5-5.1)
[2019-04-25] MEDS: MAGNESIUM OXIDE 400 MG TAB PO SCH (08:12)
[2019-04-25] MEDS: MULTIVITAMIN TAB PO SCH (08:12)
[2019-04-25] MEDS: CHOLECALCIFEROL 1,000 UNITS TAB PO SCH (08:13)
[2019-04-25] MEDS: INSULIN ASPART 100 UNITS/ML 3 ML PEN SC SCH ×4 (08:13→20:52)
[2019-04-25] MEDS: ZINC SULFATE 220 MG CAPSULE PO SCH (08:13)
[2019-04-25] MEDS: METOPROLOL SUCC 25MG EXT REL TAB PO SCH ×2 (08:13→22:01)
[2019-04-25] MEDS: OMEGA-3 (PURIFIED FISH OIL) 1 GM CAP PO SCH (08:13)
--- NOTE | 2019-04-25 09:34 | Hospitalist Progress Note ---
Date of Service April 25, 2019 Assessment & Plan (1) Atrial flutter with rapid ventricular response: Recent cardioversion and was on Eliquis which was changed to Coumadin Has been having gastroenteritis with nausea, vomiting and diarrhea for the last few days Was seen in the cardiology clinic and noted to have atrial flutter with rapid ventricular response and was sent in the emergency room Received so far 3 doses of IV Lopressor 5 mg each Heart rate remained around 118 Patient was admitted for telemetry, remained tachycardic overnight Cardiology consulted, loaded with sotalol yesterday but pt remains tachycardic, started on dilt drip, home metoprolol dose lowered - patient's INR was 1.9 yesterday, pt was therefore on IV heparin, today INR therapeutic 2.3, heparin d/c'ed - We will continue to closely monitor (2) Gastroenteritis: Recent gastroenteritis with nausea, vomiting and diarrhea Has been improving Component of dehydration Received intravenous fluid, however with not much improvement in tachycardia (3) HTN (hypertension): Blood pressure seems to be under control (4) T2DM (type 2 diabetes mellitus): Hold metformin We will put him on sliding scale insulin coverage (5) HLD (hyperlipidemia): Continue his fish oil/ omega-3s (6) CAD (coronary artery disease): No acute cardiac symptoms DVT prophylax Has been on Coumadin, now INR therapeutic CODE STATUS Full Subjective No acute events overnight. Patient remains tachycardic, in A. fib. He is however asymptomatic, denies any chest pain, palpitations, shortness of breath, dizziness, lightheadedness. He also denies any fevers, chills, abdominal pain, nausea or vomiting. Review of Systems Review of Systems: All systems reviewed & are unremarkable except as noted in HPI & below Constitutional: no fever, no chills, no fatigue and no weakness Respiratory: no cough, no dyspnea and no pain on inspiration Cardiovascular: no chest pain, no dyspnea on exertion, no palpitations and no edema Gastrointestinal: no abdominal pain, no nausea and no vomiting Physical Exam Physical Exam: Physical Exam: Elderly male lying in bed in no acute distress, comfortable Constitutional: well developed and well nourished; no acute distress and not ill appearing Eyes: PERRL, conjunctivae normal, anicteric sclerae ENMT: external ear and nose normal, oropharynx normal Neck: trachea midline, no thyromegaly Respiratory: normal respiratory effort; no respiratory distress Auscultation: lungs clear to auscultation bilaterally, no wheezing, crackles, or rhonchi Cardiovascular: Rate/Rhythm: irregular, no no murmurs or gallops Gastrointestinal (Abdomen): Inspection/Auscultation: abdomen normal to inspection and normal bowel sounds; abdomen not distended Percussion/Palpation: abdomen nontender Musculoskeletal: Moves all 4 extremities spontaneously Neurologic: Alert, awake and oriented x3, speech fluent, no facial asymmetry, moves all 4 extremities spontaneously Lymphatic: no cervical or axillary lymphadenopathy Results & Data Vital Signs (Past 12 Hours) Vital Signs Temp Pulse Pulse Resp BP Pulse Ox 04/25/19 07:16 36.5 C 119 H 16 118/78 96 04/25/19 03:56 36.9 C 119 H 19 122/82 94 04/25/19 00:05 117 H 04/24/19 22:58 36.9 C 120 H 19 105/73 94 Laboratory Results 04/25/19 04/25/19 04/25/19 Range/Units 07:23 05:53 05:53 WBC (4.8-10.8) K/uL RBC (4.7-6.1) M/uL Hgb (14.0-18.0) g/dL Hct (42-52) % MCV (80-100) fL MCH (25-34) pg MCHC (32-36) g/dL RDW Std Deviation (36.4-46.3) fL RDW Coeff of Mychal (11.5-14.5) % Plt Count (130-400) K/uL MPV (7.4-10.4) fL PT 22.6 H (9.0-12.0) Seconds INR 2.3 H (0.9-1.1) APTT 64.7 H* (21.0-31.0) Seconds PTT Ratio 2.5 Sodium 137 (136-145) mmol/L Potassium 4.2 (3.5-5.1) mmol/L Chloride 105 (98-107) mmol/L Carbon Dioxide 27 (21-32) mmol/L Anion Gap 5.0 (3-11) BUN 8 (7-18) mg/dl Creatinine 0.93 (0.6-1.4) mg/dl Est Cr Clr Drug Dosing 114.4 ml/min Est GFR ( Amer) 104.5 Est GFR (Non-Af Amer) 90.2 BUN/Creatinine Ratio 8.2 L (10-20) Glucose 172 H (70-99) mg/dl POC Glucose 177 H (70-99) Calcium 8.8 (8.5-10.1) mg/dl Magnesium 2.1 (1.8-2.4) mg/dl 04/25/19 04/24/19 04/24/19 Range/Units 05:53 20:33 19:46 WBC 6.55 (4.8-10.8) K/uL RBC 4.11 L (4.7-6.1) M/uL Hgb 13.7 L (14.0-18.0) g/dL Hct 40.0 L (42-52) % MCV 97.3 (80-100) fL MCH 33.3 (25-34) pg MCHC 34.3 (32-36) g/dL RDW Std Deviation 58.3 H (36.4-46.3) fL RDW Coeff of Mychal 16.4 H (11.5-14.5) % Plt Count 178 (130-400) K/uL MPV 10.3 (7.4-10.4) fL PT (9.0-12.0) Seconds INR (0.9-1.1) APTT 53.0 H* (21.0-31.0) Seconds PTT Ratio 2.0 Sodium (136-145) mmol/L Potassium (3.5-5.1) mmol/L Chloride (98-107) mmol/L Carbon Dioxide (21-32) mmol/L Anion Gap (3-11) BUN (7-18) mg/dl Creatinine (0.6-1.4) mg/dl Est Cr Clr Drug Dosing ml/min Est GFR ( Amer) Est GFR (Non-Af Amer) BUN/Creatinine Ratio (10-20) Glucose (70-99) mg/dl POC Glucose 164 H (70-99) Calcium (8.5-10.1) mg/dl Magnesium (1.8-2.4) mg/dl 04/24/19 04/24/19 Range/Units 16:15 11:29 WBC (4.8-10.8) K/uL RBC (4.7-6.1) M/uL Hgb (14.0-18.0) g/dL Hct (42-52) % MCV (80-100) fL MCH (25-34) pg MCHC (32-36) g/dL RDW Std Deviation (36.4-46.3) fL RDW Coeff of Mychal (11.5-14.5) % Plt Count (130-400) K/uL MPV (7.4-10.4) fL PT (9.0-12.0) Seconds INR (0.9-1.1) APTT (21.0-31.0) Seconds PTT Ratio Sodium (136-145) mmol/L Potassium (3.5-5.1) mmol/L Chloride (98-107) mmol/L Carbon Dioxide (21-32) mmol/L Anion Gap (3-11) BUN (7-18) mg/dl Creatinine (0.6-1.4) mg/dl Est Cr Clr Drug Dosing ml/min Est GFR ( Amer) Est GFR (Non-Af Amer) BUN/Creatinine Ratio (10-20) Glucose (70-99) mg/dl POC Glucose 129 H 152 H (70-99) Calcium (8.5-10.1) mg/dl Magnesium (1.8-2.4) mg/dl Medications Administered Current Inpatient Medications Dextrose (Dextrose 50%) 25 - 50 ml IV UD PRN; Protocol PRN Reason: Hypoglycemia Protocol Stop: 05/23/19 19:44 Fish Oil ([place]-3 (Purified Fish Oil)) 2 gm PO QAM [facility] Stop: 05/24/19 08:59 Last Admin: 04/25/19 08:13 Dose: 2 gm Documented by: Glucagon (Glucagen) 1 mg IM UD PRN; Protocol PRN Reason: Hypoglycemia Protocol Stop: 05/23/19 19:44 Glucose (Glucose 40%) 15 - 30 gm PO UD PRN; Protocol PRN Reason: Hypoglycemia Protocol Stop: 05/23/19 19:44 Glucose (Dex4 Glucose) 4 - 8 tabs PO UD PRN; Protocol PRN Reason: Hypoglycemia Protocol Stop: 05/23/19 19:44 Heparin Sodium/Dextrose (Heparin Sodium/Dextrose) 25,000 units in 500 mls @ 34 mls/hr IV .[id number] [facility]; Protocol Stop: 05/24/19 13:29 Last Titration: 04/25/19 07:19 Dose: Infused Documented by: Lorazepam (Ativan) 0.25 mg in 0.5 mls @ 0.5 mls/min IV Q4H PRN PRN Reason: Anxiety Stop: 05/24/19 20:42 Last Admin: 04/24/19 22:07 Dose: 0.5 mls/min Documented by: Insulin Aspart (Novolog Flexpen) 0 units SC ACHS [facility] Stop: 05/23/19 20:59 Last Admin: 04/25/19 08:13 Dose: 6 units Documented by: Magnesium Oxide (Mag-Ox) 400 mg PO DAILY [facility] Stop: 05/24/19 08:59 Last Admin: 04/25/19 08:12 Dose: 400 mg Documented by: Metoprolol Succinate (Toprol Xl) 25 mg PO BID [facility] Stop: 05/24/19 20:59 Last Admin: 04/25/19 08:13 Dose: 25 mg Documented by: Miscellaneous (Carbohydrates For Hypoglycemia) 15 - 30 gm PO UD PRN PRN Reason: Hypoglycemia Treatment Stop: 05/23/19 19:44 Multivitamins (Multivitamin Tab) 1 tab PO QAM [facility] Stop: 05/24/19 08:59 Last Admin: 04/25/19 08:12 Dose: 1 tab Documented by: Sotalol HCl (Betapace) 80 mg PO BID [facility] Stop: 05/25/19 06:29 Last Admin: 04/25/19 06:39 Dose: 80 mg Documented by: Vitamin D (Vitamin D3) 1,000 units PO QAM [facility] Stop: 05/24/19 08:59 Last Admin: 04/25/19 08:13 Dose: 1,000 units Documented by: Warfarin Sodium (Coumadin) 5 mg PO Mo@1600 [facility] Stop: 05/26/19 15:59 Warfarin Sodium (Coumadin) 10 mg PO SuTuWeThFrSa@1600 [facility] Stop: 05/23/19 19:44 Last Admin: 04/24/19 17:25 Dose: 10 mg Documented by: Zinc Sulfate (Zinc Sulfate) 220 mg PO DAILY [facility] Stop: 05/24/19 08:59 Last Admin: 04/25/19 08:13 Dose: 220 mg Documented by: (1) HTN (hypertension) Hypertension type: essential hypertension Qualified Code(s): I10 - Essential (primary) hypertension
[2019-04-25] MEDS ORDERED: Nursing to Pharmacy Communication ONE (11:43)
[2019-04-25] MEDS ORDERED: dilTIAZem HCl 5 MG/ML 5 ML VIAL IV STA (12:19)
--- NOTE | 2019-04-25 12:29 | Cardiology Progress Note ---
Date of Service April 25, 2019 Assessment & Plan (1) Gastroenteritis: (2) Hyperglycemia: (3) Atrial fibrillation: (4) CAD (coronary artery disease): The patient is still having high heart rates despite metoprolol and sotalol. He is tolerating the sotalol load. I will add a diltiazem infusion to bring his heart rates under better control. I will continue to load him with sotalol. His INR is therapeutic so I will DC his heparin. Subjective The patient is asymptomatic but still having high heart rates from atrial fibrillation. He was started on sotalol yesterday and is tolerating this medication. He was on 50 of metoprolol twice daily which I decreased to 25 mg twice daily after the start of the sotalol. He has no symptoms of shortness of breath. He denies dizziness or lightheadedness. Review of Systems Review of Systems: All systems reviewed & are unremarkable except as noted in HPI & below Nothing additional. Physical Exam Physical Exam: General: no acute distress and stated age Head: normocephalic, no masses, lesions, tenderness or abnormalities Eyes: conjunctiva are pink and non-injected, sclera clear Neck: supple, no adenopathy, no bruits, normal jugular venous pulse, no hepatojugular reflux Chest: normal shape and normal respiratory effort Lungs: clear to auscultation and percussion Cardiac Exam: - irregular rate & rhythm, no murmurs gallops or rubs - normal S1, normal S2 Pulses: 2(+) throughout Abdomen: abdomen soft, non-tender, no abnormal masses and no hepatosplenomegaly Musculoskeletal: no gait disturbance, no joint inflammation, no deforming arthritis Extremities: no edema and no cyanosis Neuro: grossly normal exam Results & Data Vital Signs (Past 12 Hours) Vital Signs Temp Pulse Resp BP Pulse Ox 04/25/19 11:34 36.4 C L 118 H 16 123/84 97 04/25/19 07:16 36.5 C 119 H 16 118/78 96 04/25/19 03:56 36.9 C 119 H 19 122/82 94 Laboratory Results Laboratory Results - last 24 hr 04/24/19 04/24/19 04/24/19 16:15 19:46 20:33 WBC RBC Hgb Hct MCV MCH MCHC RDW Std Deviation RDW Coeff of Mychal Plt Count MPV PT INR APTT 53.0 H* PTT Ratio 2.0 Sodium Potassium Chloride Carbon Dioxide Anion Gap BUN Creatinine Est Cr Clr Drug Dosing Est GFR ( Amer) Est GFR (Non-Af Amer) BUN/Creatinine Ratio Glucose POC Glucose 129 H 164 H Calcium Magnesium 04/25/19 04/25/19 04/25/19 05:53 05:53 05:53 WBC 6.55 RBC 4.11 L Hgb 13.7 L Hct 40.0 L MCV 97.3 MCH 33.3 MCHC 34.3 RDW Std Deviation 58.3 H RDW Coeff of Mychal 16.4 H Plt Count 178 MPV 10.3 PT 22.6 H INR 2.3 H APTT 64.7 H* PTT Ratio 2.5 Sodium 137 Potassium 4.2 Chloride 105 Carbon Dioxide 27 Anion Gap 5.0 BUN 8 Creatinine 0.93 Est Cr Clr Drug Dosing 114.4 Est GFR ( Amer) 104.5 Est GFR (Non-Af Amer) 90.2 BUN/Creatinine Ratio 8.2 L Glucose 172 H POC Glucose Calcium 8.8 Magnesium 2.1 04/25/19 04/25/19 07:23 11:17 WBC RBC Hgb Hct MCV MCH MCHC RDW Std Deviation RDW Coeff of Mychal Plt Count MPV PT INR APTT PTT Ratio Sodium Potassium Chloride Carbon Dioxide Anion Gap BUN Creatinine Est Cr Clr Drug Dosing Est GFR ( Amer) Est GFR (Non-Af Amer) BUN/Creatinine Ratio Glucose POC Glucose 177 H 149 H Calcium Magnesium Medications Administered Current Inpatient Medications Dextrose (Dextrose 50%) 25 - 50 ml IV UD PRN; Protocol PRN Reason: Hypoglycemia Protocol Stop: 05/23/19 19:44 Fish Oil ([place]-3 (Purified Fish Oil)) 2 gm PO QAM [facility] Stop: 05/24/19 08:59 Last Admin: 04/25/19 08:13 Dose: 2 gm Documented by: Glucagon (Glucagen) 1 mg IM UD PRN; Protocol PRN Reason: Hypoglycemia Protocol Stop: 05/23/19 19:44 Glucose (Glucose 40%) 15 - 30 gm PO UD PRN; Protocol PRN Reason: Hypoglycemia Protocol Stop: 05/23/19 19:44 Glucose (Dex4 Glucose) 4 - 8 tabs PO UD PRN; Protocol PRN Reason: Hypoglycemia Protocol Stop: 05/23/19 19:44 Lorazepam (Ativan) 0.25 mg in 0.5 mls @ 0.5 mls/min IV Q4H PRN PRN Reason: Anxiety Stop: 05/24/19 20:42 Last Admin: 04/24/19 22:07 Dose: 0.5 mls/min Documented by: Diltiazem HCl 125 mg/ Dextrose 125 mls @ 5 mls/hr IV .Q24H [facility]; Protocol Stop: 05/25/19 12:59 Insulin Aspart (Novolog Flexpen) 0 units SC ACHS [facility] Stop: 05/23/19 20:59 Last Admin: 04/25/19 08:13 Dose: 6 units Documented by: Magnesium Oxide (Mag-Ox) 400 mg PO DAILY [facility] Stop: 05/24/19 08:59 Last Admin: 04/25/19 08:12 Dose: 400 mg Documented by: Metoprolol Succinate (Toprol Xl) 25 mg PO BID [facility] Stop: 05/24/19 20:59 Last Admin: 04/25/19 08:13 Dose: 25 mg Documented by: Miscellaneous (Carbohydrates For Hypoglycemia) 15 - 30 gm PO UD PRN PRN Reason: Hypoglycemia Treatment Stop: 05/23/19 19:44 [facility]it[facility] ([facility]amin Tab) [facility] Stop: 05/24/19 08:59 Last Admin: 04/25/19 08:12 Dose: 1 tab Documented by: Sotalol HCl (Betapace) 80 mg PO BID [facility] Stop: 05/25/19 06:29 Last Admin: 04/25/19 06:39 Dose: 80 mg Documented by: Vitamin D (Vitamin D3) 1,000 units PO QAM [facility] Stop: 05/24/19 08:59 Last Admin: 04/25/19 08:13 Dose: 1,000 units Documented by: Warfarin Sodium (Coumadin) 5 mg PO Mo@1600 [facility] Stop: 05/26/19 15:59 Warfarin Sodium (Coumadin) 10 mg PO SuTuWeThFrSa@1600 [facility] Stop: 05/23/19 19:44 Last Admin: 04/24/19 17:25 Dose: 10 mg Documented by: Zinc Sulfate (Zinc Sulfate) 220 mg PO DAILY [facility] Stop: 05/24/19 08:59 Last Admin: 04/25/19 08:13 Dose: 220 mg Documented by: (1) Atrial fibrillation Atrial fibrillation type: unspecified Qualified Code(s): I48.91 - Unspecified atrial fibrillation
[2019-04-25] MEDS: dilTIAZem HCl 125 MG in DEXTROSE 5% 100 ML IV SCH ×2 (12:45→23:49)
[2019-04-25] MEDS: WARFARIN SOD 10 MG TAB PO SCH (17:17)
[2019-04-25] MEDS: LORazepam 0.25 MG/0.5 ML VIAL IV PRN (23:32)
[2019-04-26 07:01] LABS: Hematocrit (blood only) 40.9 % (42-52); Mean Corpuscular Hemoglobin 33.3 pg (25-34); Mean Corpuscular Hgb Conc 34.2 g/dL (32-36); Mean Corpuscular Volume 97.4 fL (80-100); Mean Platelet Volume 10.1 fL (7.4-10.4); Platelet Count 177 K/uL (130-400); RDW Coefficient of Variation 16.3 % (11.5-14.5); RDW Standard Deviation 57.7 fL (36.4-46.3); White Blood Count 6.28 K/uL (4.8-10.8)
[2019-04-26 07:10] LABS: INR 1.9 (0.9-1.1); Prothrombin Time 18.9 Seconds (9.0-12.0)
[2019-04-26 07:28] LABS: Calcium 8.9 mg/dl (8.5-10.1); Creatinine Clr Calc Pharmacy 107.5 ml/min; Est GFR (African American) 96.9; Est GFR (Non-African American) 83.6; Potassium 4.5 mmol/L (3.5-5.1)
[2019-04-26] MEDS: METOPROLOL SUCC 25MG EXT REL TAB PO SCH ×2 (08:25→20:40)
[2019-04-26] MEDS: CHOLECALCIFEROL 1,000 UNITS TAB PO SCH (08:25)
[2019-04-26] MEDS: MAGNESIUM OXIDE 400 MG TAB PO SCH (08:26)
[2019-04-26] MEDS: SOTALOL HCL 80 MG TAB PO SCH ×2 (08:26→20:40)
[2019-04-26] MEDS: OMEGA-3 (PURIFIED FISH OIL) 1 GM CAP PO SCH (08:26)
[2019-04-26] MEDS: MULTIVITAMIN TAB PO SCH (08:26)
[2019-04-26] MEDS: ZINC SULFATE 220 MG CAPSULE PO SCH (08:26)
[2019-04-26] MEDS: INSULIN ASPART 100 UNITS/ML 3 ML PEN SC SCH ×4 (08:27→20:39)
--- NOTE | 2019-04-26 09:14 | Hospitalist Progress Note ---
Date of Service April 26, 2019 Assessment & Plan (1) Atrial flutter with rapid ventricular response: Recent cardioversion and was on Eliquis which was changed to Coumadin Has been having gastroenteritis with nausea, vomiting and diarrhea for the last few days Was seen in the cardiology clinic and noted to have atrial flutter with rapid ventricular response and was sent in the emergency room Received 3 doses of IV Lopressor 5 mg each on admission Heart rate remained around 118 Patient was admitted to telemetry, remains tachycardic but now heart rate better controlled, HR<110 (after patient was started on sotalol and dilt drip) Cardiology consulted, started pt on sotalol, and dilt drip, home metoprolol dose lowered - Plan for cardioversion tomorrow, n.p.o. after midnight - patient's INR 1.9, will increase warfarin dose to 10 mg tonight - We will continue to closely monitor (2) Gastroenteritis: Recent gastroenteritis with nausea, vomiting and diarrhea Has been improving Component of dehydration Received intravenous fluid, however with not much improvement in tachycardia (3) HTN (hypertension): Blood pressure seems to be under control (4) T2DM (type 2 diabetes mellitus): Hold metformin We will put him on sliding scale insulin coverage (5) HLD (hyperlipidemia): Continue his fish oil/ omega-3s (6) CAD (coronary artery disease): No acute cardiac symptoms DVT prophylax Has been on Coumadin, now INR therapeutic CODE STATUS Full Subjective No acute events overnight, patient is anxious at night though. HR better controlled, HR <110. Denies any fevers, chills, chest pain, shortness of breath, palpitations, dizziness or lightheadedness. INR 1.9, will incr. warfarin for tonight to 10mg NPO after midnight for cardioversion Review of Systems 2 Review of Systems: All systems reviewed & are unremarkable except as noted in HPI & below Constitutional: no fever, no chills and no fatigue Respiratory: no cough, no dyspnea and no pain on inspiration Cardiovascular: no chest pain, no dyspnea on exertion, no palpitations and no edema Physical Exam Physical Exam: Physical Exam: Elderly male lying in bed in no acute distress, comfortable Constitutional: well developed and well nourished; no acute distress and not ill appearing Eyes: PERRL, conjunctivae normal, anicteric sclerae ENMT: external ear and nose normal, oropharynx normal Neck: trachea midline, no thyromegaly Respiratory: normal respiratory effort; no respiratory distress Auscultation: lungs clear to auscultation bilaterally, no wheezing, crackles, or rhonchi Cardiovascular: Rate/Rhythm: irregular,tachycardic, no no murmurs or gallops Gastrointestinal (Abdomen): Inspection/Auscultation: abdomen normal to inspection and normal bowel sounds; abdomen not distended Percussion/Palpation: abdomen nontender Musculoskeletal: Moves all 4 extremities spontaneously Neurologic: Alert, awake and oriented x3, speech fluent, no facial asymmetry, moves all 4 extremities spontaneously Lymphatic: no cervical or axillary lymphadenopathy Results & Data Vital Signs (Past 12 Hours) Vital Signs Temp Pulse Resp BP Pulse Ox 04/26/19 06:54 36.6 C 99 H 20 105/75 93 04/26/19 04:25 37 C 107 H 20 105/74 92 04/25/19 23:48 36.3 C L 81 18 105/72 94 Laboratory Results 04/26/19 04/26/19 04/26/19 Range/Units 07:21 06:49 06:49 WBC 6.28 (4.8-10.8) K/uL RBC 4.20 L (4.7-6.1) M/uL Hgb 14.0 (14.0-18.0) g/dL Hct 40.9 L (42-52) % MCV 97.4 (80-100) fL MCH 33.3 (25-34) pg MCHC 34.2 (32-36) g/dL RDW Std Deviation 57.7 H (36.4-46.3) fL RDW Coeff of Mychal 16.3 H (11.5-14.5) % Plt Count 177 (130-400) K/uL MPV 10.1 (7.4-10.4) fL PT (9.0-12.0) Seconds INR (0.9-1.1) Sodium 137 (136-145) mmol/L Potassium 4.5 (3.5-5.1) mmol/L Chloride 105 (98-107) mmol/L Carbon Dioxide 26 (21-32) mmol/L Anion Gap 6.0 (3-11) BUN 9 (7-18) mg/dl Creatinine 0.99 (0.6-1.4) mg/dl Est Cr Clr Drug Dosing 107.5 ml/min Est GFR ( Amer) 96.9 Est GFR (Non-Af Amer) 83.6 BUN/Creatinine Ratio 9.0 L (10-20) Glucose 170 H (70-99) mg/dl POC Glucose 194 H (70-99) Calcium 8.9 (8.5-10.1) mg/dl 04/26/19 04/25/19 04/25/19 Range/Units 06:49 20:22 16:08 WBC (4.8-10.8) K/uL RBC (4.7-6.1) M/uL Hgb (14.0-18.0) g/dL Hct (42-52) % MCV (80-100) fL MCH (25-34) pg MCHC (32-36) g/dL RDW Std Deviation (36.4-46.3) fL RDW Coeff of Mychal (11.5-14.5) % Plt Count (130-400) K/uL MPV (7.4-10.4) fL PT 18.9 H (9.0-12.0) Seconds INR 1.9 H (0.9-1.1) Sodium (136-145) mmol/L Potassium (3.5-5.1) mmol/L Chloride (98-107) mmol/L Carbon Dioxide (21-32) mmol/L Anion Gap (3-11) BUN (7-18) mg/dl Creatinine (0.6-1.4) mg/dl Est Cr Clr Drug Dosing ml/min Est GFR ( Amer) Est GFR (Non-Af Amer) BUN/Creatinine Ratio (10-20) Glucose (70-99) mg/dl POC Glucose 170 H 111 H (70-99) Calcium (8.5-10.1) mg/dl 04/25/19 Range/Units 11:17 WBC (4.8-10.8) K/uL RBC (4.7-6.1) M/uL Hgb (14.0-18.0) g/dL Hct (42-52) % MCV (80-100) fL MCH (25-34) pg MCHC (32-36) g/dL RDW Std Deviation (36.4-46.3) fL RDW Coeff of Mychal (11.5-14.5) % Plt Count (130-400) K/uL MPV (7.4-10.4) fL PT (9.0-12.0) Seconds INR (0.9-1.1) Sodium (136-145) mmol/L Potassium (3.5-5.1) mmol/L Chloride (98-107) mmol/L Carbon Dioxide (21-32) mmol/L Anion Gap (3-11) BUN (7-18) mg/dl Creatinine (0.6-1.4) mg/dl Est Cr Clr Drug Dosing ml/min Est GFR ( Amer) Est GFR (Non-Af Amer) BUN/Creatinine Ratio (10-20) Glucose (70-99) mg/dl POC Glucose 149 H (70-99) Calcium (8.5-10.1) mg/dl Medications Administered Current Inpatient Medications Dextrose (Dextrose 50%) 25 - 50 ml IV UD PRN; Protocol PRN Reason: Hypoglycemia Protocol Stop: 05/23/19 19:44 Fish Oil ([place]-3 (Purified Fish Oil)) 2 gm PO QAM [facility] Stop: 05/24/19 08:59 Last Admin: 04/26/19 08:26 Dose: 2 gm Documented by: Glucagon (Glucagen) 1 mg IM UD PRN; Protocol PRN Reason: Hypoglycemia Protocol Stop: 05/23/19 19:44 Glucose (Glucose 40%) 15 - 30 gm PO UD PRN; Protocol PRN Reason: Hypoglycemia Protocol Stop: 05/23/19 19:44 Glucose (Dex4 Glucose) 4 - 8 tabs PO UD PRN; Protocol PRN Reason: Hypoglycemia Protocol Stop: 05/23/19 19:44 Lorazepam (Ativan) 0.25 mg in 0.5 mls @ 0.5 mls/min IV Q4H PRN PRN Reason: Anxiety Stop: 05/24/19 20:42 Last Admin: 04/25/19 23:32 Dose: 0.5 mls/min Documented by: Diltiazem HCl 125 mg/ Dextrose 125 mls @ 5 mls/hr IV .Q24H [facility]; Protocol Stop: 05/25/19 12:59 Last Titration: 04/26/19 08:26 Dose: 5 mg/hr, 5 mls/hr Documented by: Insulin Aspart (Novolog Flexpen) 0 units SC ACHS [facility] Stop: 05/23/19 20:59 Last Admin: 04/26/19 08:27 Dose: 3 units Documented by: Magnesium Oxide (Mag-Ox) 400 mg PO DAILY [facility] Stop: 05/24/19 08:59 Last Admin: 04/26/19 08:26 Dose: 400 mg Documented by: Metoprolol Succinate (Toprol Xl) 25 mg PO BID [facility] Stop: 05/24/19 20:59 Last Admin: 04/26/19 08:25 Dose: 25 mg Documented by: Miscellaneous (Carbohydrates For Hypoglycemia) 15 - 30 gm PO UD PRN PRN Reason: Hypoglycemia Treatment Stop: 05/23/19 19:44 Multivitamins (Multivitamin Tab) 1 tab PO [facility] Stop: 05/24/19 08:59 Last Admin: 04/26/19 08:26 Dose: 1 tab Documented by: Sotalol HCl (Betapace) 80 mg PO BID [facility] Stop: 05/25/19 06:29 Last Admin: 04/26/19 08:26 Dose: 80 mg Documented by: Vitamin D (Vitamin D3) 1,000 units PO QAM [facility] Stop: 05/24/19 08:59 Last Admin: 04/26/19 08:25 Dose: 1,000 units Documented by: Warfarin Sodium (Coumadin) 5 mg PO Mo@1600 [facility] Stop: 05/26/19 15:59 Warfarin Sodium (Coumadin) 10 mg PO SuTuWeThFrSa@1600 [facility] Stop: 05/23/19 19:44 Last Admin: 04/25/19 17:17 Dose: 10 mg Documented by: Zinc Sulfate (Zinc Sulfate) 220 mg PO DAILY [facility] Stop: 05/24/19 08:59 Last Admin: 04/26/19 08:26 Dose: 220 mg Documented by: (1) HTN (hypertension) Hypertension type: essential hypertension Qualified Code(s): I10 - Essential (primary) hypertension
--- NOTE | 2019-04-26 11:13 | Cardiology Progress Note ---
Date of Service April 26, 2019 Assessment & Plan (1) Gastroenteritis: (2) Hyperglycemia: (3) Atrial fibrillation: (4) CAD (coronary artery disease): The patient is tolerating his sotalol. He will have completed 6 doses by tomorrow and we may proceed with a cardioversion. He will be made n.p.o. after midnight. I would continue his current medications including the metoprolol, diltiazem and sotalol. He is scheduled to receive 5 mg of warfarin this evening but his INR is 1.9 so I will allow him to have 10 mg of warfarin tonight. Subjective The patient remains in atrial flutter however the heart rates are better controlled after the start of diltiazem. He is tolerating his medications including the sotalol. His QT interval on his most recent EKG is 485 which I think is acceptable. Review of Systems Review of Systems: All systems reviewed & are unremarkable except as noted in HPI & below Nothing additional to add. Physical Exam Physical Exam: General: no acute distress and stated age Head: normocephalic, no masses, lesions, tenderness or abnormalities Eyes: conjunctiva are pink and non-injected, sclera clear Neck: supple, no adenopathy, no bruits, normal jugular venous pulse, no hepatojugular reflux Chest: normal shape and normal respiratory effort Lungs: clear to auscultation and percussion Cardiac Exam: - irregular rate & rhythm, no murmurs gallops or rubs - normal S1, normal S2 Pulses: 2(+) throughout Abdomen: abdomen soft, non-tender, no abnormal masses and no hepatosplenomegaly Musculoskeletal: no gait disturbance, no joint inflammation, no deforming arthritis Extremities: no edema and no cyanosis Neuro: grossly normal exam Results & Data Vital Signs (Past 12 Hours) Vital Signs Temp Pulse Resp BP Pulse Ox 04/26/19 10:37 36.4 C L 107 H 19 103/71 94 04/26/19 06:54 36.6 C 99 H 20 105/75 93 04/26/19 04:25 37 C 107 H 20 105/74 92 04/25/19 23:48 36.3 C L 81 18 105/72 94 Laboratory Results Laboratory Results - last 24 hr 04/25/19 04/25/19 04/25/19 11:17 16:08 20:22 WBC RBC Hgb Hct MCV MCH MCHC RDW Std Deviation RDW Coeff of Mychal Plt Count MPV PT INR Sodium Potassium Chloride Carbon Dioxide Anion Gap BUN Creatinine Est Cr Clr Drug Dosing Est GFR ( Amer) Est GFR (Non-Af Amer) BUN/Creatinine Ratio Glucose POC Glucose 149 H 111 H 170 H Calcium 04/26/19 04/26/19 04/26/19 06:49 06:49 06:49 WBC 6.28 RBC 4.20 L Hgb 14.0 Hct 40.9 L MCV 97.4 MCH 33.3 MCHC 34.2 RDW Std Deviation 57.7 H RDW Coeff of Mychal 16.3 H Plt Count 177 MPV 10.1 PT 18.9 H INR 1.9 H Sodium 137 Potassium 4.5 Chloride 105 Carbon Dioxide 26 Anion Gap 6.0 BUN 9 Creatinine 0.99 Est Cr Clr Drug Dosing 107.5 Est GFR ( Amer) 96.9 Est GFR (Non-Af Amer) 83.6 BUN/Creatinine Ratio 9.0 L Glucose 170 H POC Glucose Calcium 8.9 04/26/19 07:21 WBC RBC Hgb Hct MCV MCH MCHC RDW Std Deviation RDW Coeff of Mychal Plt Count MPV PT INR Sodium Potassium Chloride Carbon Dioxide Anion Gap BUN Creatinine Est Cr Clr Drug Dosing Est GFR ( Amer) Est GFR (Non-Af Amer) BUN/Creatinine Ratio Glucose POC Glucose 194 H Calcium Medications Administered Current Inpatient Medications Dextrose (Dextrose 50%) 25 - 50 ml IV UD PRN; Protocol PRN Reason: Hypoglycemia Protocol Stop: 05/23/19 19:44 Fish Oil ([place]-3 (Purified Fish Oil)) 2 gm PO QAM BRITTANI Stop: 05/24/19 08:59 Last Admin: 04/26/19 08:26 Dose: 2 gm Documented by: Glucagon (Glucagen) 1 mg IM UD PRN; Protocol PRN Reason: Hypoglycemia Protocol Stop: 05/23/19 19:44 Glucose (Glucose 40%) 15 - 30 gm PO UD PRN; Protocol PRN Reason: Hypoglycemia Protocol Stop: 05/23/19 19:44 Glucose (Dex4 Glucose) 4 - 8 tabs PO UD PRN; Protocol PRN Reason: Hypoglycemia Protocol Stop: 05/23/19 19:44 Lorazepam (Ativan) 0.25 mg in 0.5 mls @ 0.5 mls/min IV Q4H PRN PRN Reason: Anxiety Stop: 05/24/19 20:42 Last Admin: 04/25/19 23:32 Dose: 0.5 mls/min Documented by: Diltiazem HCl 125 mg/ Dextrose 125 mls @ 5 mls/hr IV .Q24H [facility]; Protocol Stop: 05/25/19 12:59 Last Titration: 04/26/19 08:26 Dose: 5 mg/hr, 5 mls/hr Documented by: Insulin Aspart (Novolog Flexpen) 0 units SC ACHS [facility] Stop: 05/23/19 20:59 Last Admin: 04/26/19 08:27 Dose: 3 units Documented by: Magnesium Oxide (Mag-Ox) 400 mg PO DAILY [facility] Stop: 05/24/19 08:59 Last Admin: 04/26/19 08:26 Dose: 400 mg Documented by: Metoprolol Succinate (Toprol Xl) 25 mg PO BID [facility] Stop: 05/24/19 20:59 Last Admin: 04/26/19 08:25 Dose: 25 mg Documented by: Miscellaneous (Carbohydrates For Hypoglycemia) 15 - 30 gm PO UD PRN PRN Reason: Hypoglycemia Treatment Stop: 05/23/19 19:44 Multivitamins (Multivitamin Tab) 1 tab PO [facility] Stop: 05/24/19 08:59 Last Admin: 04/26/19 08:26 Dose: 1 tab Documented by: Sotalol HCl (Betapace) 80 mg PO BID [facility] Stop: 05/25/19 06:29 Last Admin: 04/26/19 08:26 Dose: 80 mg Documented by: Vitamin D (Vitamin D3) 1,000 units PO QAM [facility] Stop: 05/24/19 08:59 Last Admin: 04/26/19 08:25 Dose: 1,000 units Documented by: Warfarin Sodium (Coumadin) 10 mg PO [id number]@1600 [facility] Stop: 05/23/19 19:44 Last Admin: 04/25/19 17:17 Dose: 10 mg Documented by: Warfarin Sodium (Coumadin) 10 mg PO Mo@1600 [facility] Stop: 05/26/19 15:59 Zinc Sulfate (Zinc Sulfate) 220 mg PO DAILY [facility] Stop: 05/24/19 08:59 Last Admin: 04/26/19 08:26 Dose: 220 mg Documented by: (1) Atrial fibrillation Atrial fibrillation type: unspecified Qualified Code(s): I48.91 - Unspecified atrial fibrillation
--- NOTE | 2019-04-26 11:30 | Anesthesiology Consultation ---
Date of Service April 26, 2019 Assessment & Plan (1) Encounter for pre-operative examination: Chart Review Chart Review: Acceptable Risk for Surgery and Patient NOT seen in Pre Admission Testing Consults Requested none History Height/Weight Height: 6 ft Weight: 117.3 kg Allergies Allergy/AdvReac Type Severity Reaction Status Date / Time codeine Allergy Intermediate GI Verified 04/23/19 17:03 SYMPTOMS and tachycardia morphine Allergy Intermediate GI SYMPTOMS Verified 04/23/19 17:03 cyclobenzaprine Allergy Unknown Unknown Verified 04/23/19 17:05 gabapentin Allergy Unknown Unknown Verified 04/23/19 17:05 Sulfa (Sulfonamide Allergy Unknown unknown Verified 04/23/19 17:03 Antibiotics) tramadol Allergy Unknown Unknown Verified 04/23/19 17:05 Medications Home Medications Medication Instructions Recorded Confirmed Last Taken cholecalciferol (vitamin D3) 1,000 unit PO QAM 07/20/18 04/23/19 01/11/19 [Vitamin D3] metformin 1,000 mg PO BID 07/20/18 04/23/19 01/11/19 multivitamin 1 tab PO QAM 07/20/18 04/23/19 01/11/19 omega 1-vxb-jik-fish oil [Fish Oil] 2 cap PO QAM 07/20/18 04/23/19 01/11/19 zinc 50 mg PO QAM 07/20/18 04/23/19 01/11/19 magnesium 250 mg PO DAILY 04/23/19 04/23/19 Unknown metoprolol succinate 25 mg PO DAILY 04/23/19 04/23/19 Unknown warfarin [Coumadin] 5 mg PO .QMON 04/23/19 04/23/19 Unknown warfarin [Jantoven] 10 mg PO 6XWK 04/23/19 04/23/19 Unknown Active Medications Generic Name Dose Route Start Last Admin Trade Name Freq PRN Reason Stop Dose Admin Fish Oil 2 gm 04/24/19 09:00 04/26/19 08:26 [place]-3 (Purified Fish Oil) PO 05/24/19 08:59 2 gm QAM BRITTANI Administration Lorazepam 0.25 mg in 0.5 mls @ 0.5 mls/min 04/24/19 20:43 04/25/19 23:32 Ativan IV 05/24/19 20:42 0.5 mls/min Q4H PRN Administration Anxiety Diltiazem HCl 125 mg/ Dextrose 125 mls @ 5 mls/hr 04/25/19 13:00 04/26/19 08:26 IV 05/25/19 12:59 5 mg/hr .Q24H BRITTANI 5 mls/hr Titration Protocol 5 MG/HR Insulin Aspart 0 units 04/23/19 21:00 04/26/19 08:27 Novolog Flexpen SC 05/23/19 20:59 3 units ACHS BRITTANI Administration Magnesium Oxide 400 mg 04/24/19 09:00 04/26/19 08:26 Mag-Ox PO 05/24/19 08:59 400 mg DAILY BRITTANI Administration Metoprolol Succinate 25 mg 04/24/19 21:00 04/26/19 08:25 Toprol Xl PO 05/24/19 20:59 25 mg BID BRITTANI Administration Multivitamins 1 tab 04/24/19 09:00 04/26/19 08:26 Multivitamin Tab PO 05/24/19 08:59 1 tab QAM BRITTANI Administration Sotalol HCl 80 mg 04/25/19 06:30 04/26/19 08:26 Betapace PO 05/25/19 06:29 80 mg BID BRITTANI Administration Vitamin D 1,000 units 04/24/19 09:00 04/26/19 08:25 Vitamin D3 PO 05/24/19 08:59 1,000 units QAM BRITTANI Administration Warfarin Sodium 10 mg 04/23/19 19:45 04/25/19 17:17 Coumadin PO 05/23/19 19:44 10 mg [id number]@1600 BRITTANI Administration Zinc Sulfate 220 mg 04/24/19 09:00 04/26/19 08:26 Zinc Sulfate PO 05/24/19 08:59 220 mg DAILY BRITTANI Administration Past Medical History Medical History (Updated 04/26/19 @ 11:36 by Kennedy Oneil MD) Alcohol abuse CAD (coronary artery disease) History of tobacco abuse HLD (hyperlipidemia) HTN (hypertension) (Acute) Paroxysmal atrial flutter T2DM (type 2 diabetes mellitus) Past Family History Family History Father Coronary heart disease Hypertension Mother Coronary heart disease Brother Diabetes Other No known problems Past Surgical History Surgical History (Updated 04/26/19 @ 11:31 by Kennedy Oneil MD) History of colonoscopy History of heart artery stent RCA 09/03; L circumflex 05/06 History of tonsillectomy and adenoidectomy History of transesophageal echocardiography (MINAL) with cardioversion 01/13/19 MAC Social History Smoking Status: Former smoker tobacco type: cigarettes Hx Alcohol Use: Yes Alcohol type: hard liquor alcohol intake frequency: a few times a week Hx Substance Use: No Physical Exam Vital Signs Last Vital Signs Temp 36.4 C L 04/26/19 10:37 Pulse 107 H 04/26/19 10:37 Resp 19 04/26/19 10:37 BP 103/71 04/26/19 10:37 Pulse Ox 94 04/26/19 10:37 Testing Laboratory Results 04/26/19 06:49 04/26/19 06:49 PT 18.9 Seconds (9.0-12.0) H 04/26/19 06:49 INR 1.9 (0.9-1.1) H 04/26/19 06:49 APTT 64.7 Seconds (21.0-31.0) H* 04/25/19 05:53 Urine Color Yellow 04/23/19 16:40 Urine Appearance Clear (Clear) 04/23/19 16:40 Urine pH 7.0 (4.5-7.5) 04/23/19 16:40 Ur Specific [place] 1.008 (1.000-1.030) 04/23/19 16:40 Urine Protein 1+ (Negative) H 04/23/19 16:40 Urine Glucose (UA) 1+ (Negative) H 04/23/19 16:40 Urine Ketones Negative (Negative) 04/23/19 16:40 Urine Nitrite Negative (Negative) 04/23/19 16:40 Ur Leukocyte Esterase Negative (Negative) 04/23/19 16:40 Urine WBC (Auto) 0 /hpf (0-5) 04/23/19 16:40 Urine RBC (Auto) 0-4 /hpf (0-4) 04/23/19 16:40 U Hyaline Cast (Auto) 0 /lpf (0-5) 04/23/19 16:40 U Epithel Cells (Auto) 0-5 /lpf (0-5) 04/23/19 16:40 Urine Bacteria (Auto) Negative (Negative) 04/23/19 16:40 04/26/19 04/26/19 11:16 07:21 POC Glucose 142 H 194 H Electrocardiogram Date: 04/26/19 Findings: + T wave inversion (inferior) and + NV (inferior) Aflutter with variable AV conduction Echocardiogram Date: 01/12/19 EF: 45-50 Other Findings: + atrial enlargement (biatrial enlargment)
[2019-04-26] MEDS ORDERED: WARFARIN SOD 10 MG TAB PO SCH (16:00)
[2019-04-26] MEDS ORDERED: WARFARIN SOD 5 MG TAB PO SCH (16:00)
[2019-04-26] MEDS: dilTIAZem HCl 125 MG in DEXTROSE 5% 100 ML IV SCH (16:02)
[2019-04-26] MEDS: WARFARIN SOD 10 MG TAB PO SCH (16:03)
[2019-04-26] MEDS: LORazepam 0.25 MG/0.5 ML VIAL IV PRN (22:23)
[2019-04-27] MEDS ORDERED: LIDOCAINE HCL 2% 2 ML VIAL/AMP(20MG/ML) INFIL ONE (07:06)
[2019-04-27] MEDS ORDERED: PROPOFOL IV EMULSION 10 MG/ML 20 ML VIAL IV ONE (07:06)
[2019-04-27] MEDS: INSULIN ASPART 100 UNITS/ML 3 ML PEN SC SCH ×2 (07:38→11:52)
[2019-04-27 07:46] LABS: Prothrombin Time 19.1 Seconds (9.0-12.0)
--- NOTE | 2019-04-27 08:22 | Anesthesiology Consultation ---
Date of Service April 27, 2019 Assessment & Plan (1) Encounter for pre-operative examination: Chart Review Chart Review: Acceptable Risk for Surgery and Patient NOT seen in Pre Admission Testing Consults Requested none ASA ASA3 Proposed Anesthesia Anesthesia Type: MAC Risk / Benefits Reviewed With: PT / POA / Parent / Guardian, Accepts Plan and In formed Consent Obtained History Surgery Operation Date: 04/27/19 08:00 Proposed Procedures p Cardioversion - Cristino Levine, Height/Weight Height: 6 ft Weight: 115.5 kg Allergies Allergy/AdvReac Type Severity Reaction Status Date / Time codeine Allergy Intermediate GI Verified 04/23/19 17:03 SYMPTOMS and tachycardia morphine Allergy Intermediate GI SYMPTOMS Verified 04/23/19 17:03 cyclobenzaprine Allergy Unknown Unknown Verified 04/23/19 17:05 gabapentin Allergy Unknown Unknown Verified 04/23/19 17:05 Sulfa (Sulfonamide Allergy Unknown unknown Verified 04/23/19 17:03 Antibiotics) tramadol Allergy Unknown Unknown Verified 04/23/19 17:05 Medications Home Medications Medication Instructions Recorded Confirmed Last Taken cholecalciferol (vitamin D3) 1,000 unit PO QAM 07/20/18 04/23/19 01/11/19 [Vitamin D3] metformin 1,000 mg PO BID 07/20/18 04/23/19 01/11/19 multivitamin 1 tab PO QAM 07/20/18 04/23/19 01/11/19 omega 1-pbt-hhx-fish oil [Fish Oil] 2 cap PO QAM 07/20/18 04/23/19 01/11/19 zinc 50 mg PO QAM 07/20/18 04/23/19 01/11/19 magnesium 250 mg PO DAILY 04/23/19 04/23/19 Unknown metoprolol succinate 25 mg PO DAILY 04/23/19 04/23/19 Unknown warfarin [Coumadin] 5 mg PO .QMON 04/23/19 04/23/19 Unknown warfarin [Jantoven] 10 mg PO 6XWK 04/23/19 04/23/19 Unknown Active Medications Generic Name Dose Route Start Last Admin Trade Name Freq PRN Reason Stop Dose Admin Fish Oil 2 gm 04/24/19 09:00 04/26/19 08:26 [place]-3 (Purified Fish Oil) PO 05/24/19 08:59 2 gm QAM BRITTANI Administration Lorazepam 0.25 mg in 0.5 mls @ 0.5 mls/min 04/24/19 20:43 04/26/19 22:23 Ativan IV 05/24/19 20:42 0.5 mls/min Q4H PRN Administration Anxiety Diltiazem HCl 125 mg/ Dextrose 125 mls @ 10 mls/hr 04/25/19 13:00 04/27/19 07:04 IV 05/25/19 12:59 10 mg/hr .[id number] BRITTANI 10 mls/hr Titration Protocol 10 MG/HR Insulin Aspart 0 units 04/23/19 21:00 04/27/19 07:38 Novolog Flexpen SC 05/23/19 20:59 1 units ACHS BRITTANI Administration Magnesium Oxide 400 mg 04/24/19 09:00 04/26/19 08:26 Mag-Ox PO 05/24/19 08:59 400 mg DAILY BRITTANI Administration Metoprolol Succinate 25 mg 04/24/19 21:00 04/26/19 20:40 Toprol Xl PO 05/24/19 20:59 25 mg BID BRITTANI Administration Multivitamins 1 tab 04/24/19 09:00 04/26/19 08:26 Multivitamin Tab PO 05/24/19 08:59 1 tab QAM BRITTANI Administration Sotalol HCl 80 mg 04/25/19 06:30 04/26/19 20:40 Betapace PO 05/25/19 06:29 80 mg BID BRITTANI Administration Vitamin D 1,000 units 04/24/19 09:00 04/26/19 08:25 Vitamin D3 PO 05/24/19 08:59 1,000 units QAM BRITTANI Administration Warfarin Sodium 10 mg 04/23/19 19:45 04/26/19 16:03 Coumadin PO 05/23/19 19:44 10 mg [id number]@1600 BRITTANI Administration Warfarin Sodium 10 mg 04/26/19 16:00 04/26/19 17:05 Coumadin PO 05/26/19 15:59 10 mg Mo@1600 BRITTANI Administration Zinc Sulfate 220 mg 04/24/19 09:00 04/26/19 08:26 Zinc Sulfate PO 05/24/19 08:59 220 mg DAILY BRITTANI Administration NPO Date Last Intake of Fluids: 04/27/19 Time Last Intake of Fluids: 05:00 Date Last Intake of Solids: 04/26/19 Time Last Intake of Solids: 20:00 Past Medical History Medical History Alcohol abuse CAD (coronary artery disease) History of tobacco abuse HLD (hyperlipidemia) HTN (hypertension) (Acute) Paroxysmal atrial flutter T2DM (type 2 diabetes mellitus) Exercise / Class Metabolic Activity II 4-5 Yardwork/Stairs/Walk up hill Past Family History Family History Father Coronary heart disease Hypertension Mother Coronary heart disease Brother Diabetes Other No known problems Past Surgical History Surgical History History of colonoscopy History of heart artery stent RCA 09/03; L circumflex 05/06 History of tonsillectomy and adenoidectomy History of transesophageal echocardiography (MINAL) with cardioversion 01/13/19 MAC Past Anesthesia History No Hx of Anesthesia Complications and No Family Hx of Anesthesia Complications History of PONV No Hx of PONV and No Hx of Motion Sickness Social History Smoking Status: Former smoker tobacco type: cigarettes Hx Alcohol Use: Yes Alcohol type: hard liquor alcohol intake frequency: a few times a week Hx Substance Use: No substance use type: does not use Physical Exam Vital Signs Last Vital Signs Temp 36.4 C L 04/27/19 03:37 Pulse 90 04/27/19 08:07 Resp 16 04/27/19 08:07 BP 117/74 04/27/19 08:07 Pulse Ox 94 04/27/19 08:07 ENMT Mouth: no dentition abnormality Thyromental Distance: > or= 3.5 Finger Breadths Mallampati Class: II Neck normal visual inspection Respiratory normal respiratory effort Auscultation: lungs clear to auscultation bilaterally Cardiovascular Rate/Rhythm: regular rate and regular rhythm Psychiatric Orientation: alert Testing Laboratory Results 04/26/19 06:49 04/26/19 06:49 PT 19.1 Seconds (9.0-12.0) H 04/27/19 07:21 INR 2.0 (0.9-1.1) H 04/27/19 07:21 APTT 64.7 Seconds (21.0-31.0) H* 04/25/19 05:53 Urine Color Yellow 04/23/19 16:40 Urine Appearance Clear (Clear) 04/23/19 16:40 Urine pH 7.0 (4.5-7.5) 04/23/19 16:40 Ur Specific [place] 1.008 (1.000-1.030) 04/23/19 16:40 Urine Protein 1+ (Negative) H 04/23/19 16:40 Urine Glucose (UA) 1+ (Negative) H 04/23/19 16:40 Urine Ketones Negative (Negative) 04/23/19 16:40 Urine Nitrite Negative (Negative) 04/23/19 16:40 Ur Leukocyte Esterase Negative (Negative) 04/23/19 16:40 Urine WBC (Auto) 0 /hpf (0-5) 04/23/19 16:40 Urine RBC (Auto) 0-4 /hpf (0-4) 04/23/19 16:40 U Hyaline Cast (Auto) 0 /lpf (0-5) 04/23/19 16:40 U Epithel Cells (Auto) 0-5 /lpf (0-5) 04/23/19 16:40 Urine Bacteria (Auto) Negative (Negative) 04/23/19 16:40 04/27/19 04/26/19 07:36 20:38 POC Glucose 159 H 133 H Electrocardiogram Date: 04/26/19 Findings: + T wave inversion (inferior) and + PR (inferior) Aflutter with variable AV conduction Echocardiogram Date: 01/12/19 EF: 45-50 Other Findings: + atrial enlargement (biatrial enlargment)
--- NOTE | 2019-04-27 08:26 | Anesthesiology Progress Note ---
Date of Service April 27, 2019 Anesthesia Post Procedure Vital Signs Vital Signs: Temp Pulse Pulse Resp BP BP Pulse Ox 04/27/19 08:07 90 16 117/74 94 04/27/19 03:37 36.4 C L 96 H 18 109/75 95 04/27/19 01:00 99/64 L 04/26/19 23:53 36.6 C 112 H 18 93/65 L 93 04/26/19 21:52 118 H 18 119/86 95 04/26/19 20:40 60 04/26/19 19:47 36.6 C 84 19 106/70 95 04/26/19 15:07 36.3 C L 78 19 115/77 95 04/26/19 10:37 36.4 C L 107 H 19 103/71 94 Transfer of Care Handoff Completed per policy Notes Mental Status: alert / awake / arousable Patient Amnestic to Procedure: Yes Nausea / Vomiting: adequately controlled Pain: adequately controlled Airway Patency, RR, SpO2: stable & adequate BP & HR: stable & adequate Hydration State: stable & adequate Anesthetic Complications: no major complications apparent
[2019-04-27] MEDS: OMEGA-3 (PURIFIED FISH OIL) 1 GM CAP PO SCH (09:01)
[2019-04-27] MEDS: MULTIVITAMIN TAB PO SCH (09:01)
[2019-04-27] MEDS: MAGNESIUM OXIDE 400 MG TAB PO SCH (09:01)
[2019-04-27] MEDS: CHOLECALCIFEROL 1,000 UNITS TAB PO SCH (09:01)
[2019-04-27] MEDS: ZINC SULFATE 220 MG CAPSULE PO SCH (09:02)
[2019-04-27] MEDS: METOPROLOL SUCC 25MG EXT REL TAB PO SCH (09:39)
[2019-04-27] MEDS: SOTALOL HCL 80 MG TAB PO SCH (09:39)
[2019-04-27] MEDS: dilTIAZem HCl 125 MG in DEXTROSE 5% 100 ML IV SCH (09:40)
--- NOTE | 2019-04-27 12:34 | Cardioversion ---
Date of Service April 27, 2019 Electrical Cardioversion Rpt Electrical Cardioversion Report After informed consent was obtained the patient was given sedation by anesthesia. He then received 200 J of synchronized energy converting him from a course atrial fibrillation or flutter to normal sinus rhythm. He was recovered following the procedure in the holding area the [employer]. He then was returned to his room in stable condition.
--- NOTE | 2019-04-27 12:39 | Cardiology Progress Note ---
Date of Service April 27, 2019 Assessment & Plan (1) Gastroenteritis: (2) Hyperglycemia: (3) Atrial fibrillation: (4) CAD (coronary artery disease): The patient was successfully cardioverted this morning. He can be discharged home on his current medications including metoprolol 25 mg twice daily, sotalol 80 mg twice daily and warfarin as directed by our coagulation clinic. I will arrange follow-up with our pacemaker and cardiology clinic. Subjective The patient is resting comfortably talking with his . He underwent a successful cardioversion this morning and has maintained sinus rhythm for several hours. No new cardiac complaints. Review of Systems Review of Systems: All systems reviewed & are unremarkable except as noted in HPI & below Nothing additional to add Physical Exam Physical Exam: General: no acute distress and stated age Head: normocephalic, no masses, lesions, tenderness or abnormalities Eyes: conjunctiva are pink and non-injected, sclera clear Neck: supple, no adenopathy, no bruits, normal jugular venous pulse, no hepatojugular reflux Chest: normal shape and normal respiratory effort Lungs: clear to auscultation and percussion Cardiac Exam: - regular rate & rhythm, no murmurs gallops or rubs - normal S1, normal S2 Pulses: 2(+) throughout Abdomen: abdomen soft, non-tender, no abnormal masses and no hepatosplenomegaly Musculoskeletal: no gait disturbance, no joint inflammation, no deforming arth ritis Extremities: no edema and no cyanosis Neuro: grossly normal exam Results & Data Vital Signs (Past 12 Hours) Vital Signs Temp Pulse Pulse Pulse Resp BP BP 04/27/19 11:44 36.5 C 74 18 103/66 04/27/19 08:59 36.5 C 66 18 101/67 04/27/19 08:55 67 04/27/19 08:45 63 16 102/67 04/27/19 08:30 64 16 94/61 L 04/27/19 08:07 90 16 117/74 04/27/19 06:20 79 04/27/19 03:37 36.4 C L 96 H 18 109/75 04/27/19 01:00 99/64 L Pulse Ox 04/27/19 11:44 94 04/27/19 08:59 95 04/27/19 08:55 04/27/19 08:45 95 04/27/19 08:30 94 04/27/19 08:07 94 04/27/19 06:20 04/27/19 03:37 95 04/27/19 01:00 Laboratory Results Laboratory Results - last 24 hr 04/26/19 04/26/19 04/27/19 16:08 20:38 07:21 PT 19.1 H INR 2.0 H POC Glucose 140 H 133 H 04/27/19 07:36 PT INR POC Glucose 159 H Medications Administered Current Inpatient Medications Dextrose (Dextrose 50%) 25 - 50 ml IV UD PRN; Protocol PRN Reason: Hypoglycemia Protocol Stop: 05/23/19 19:44 Fish Oil ([place]-3 (Purified Fish Oil)) 2 gm PO QAM BRITTANI Stop: 05/24/19 08:59 Last Admin: 04/27/19 09:01 Dose: 2 gm Documented by: Glucagon (Glucagen) 1 mg IM UD PRN; Protocol PRN Reason: Hypoglycemia Protocol Stop: 05/23/19 19:44 Glucose (Glucose 40%) 15 - 30 gm PO UD PRN; Protocol PRN Reason: Hypoglycemia Protocol Stop: 05/23/19 19:44 Glucose (Dex4 Glucose) 4 - 8 tabs PO UD PRN; Protocol PRN Reason: Hypoglycemia Protocol Stop: 05/23/19 19:44 Lorazepam (Ativan) 0.25 mg in 0.5 mls @ 0.5 mls/min IV Q4H PRN PRN Reason: Anxiety Stop: 05/24/19 20:42 Last Admin: 04/26/19 22:23 Dose: 0.5 mls/min Documented by: Insulin Aspart (Novolog Flexpen) 0 units SC ACHS BRITTANI Stop: 05/23/19 20:59 Last Admin: 04/27/19 11:52 Dose: 6 units Documented by: Magnesium Oxide (Mag-Ox) 400 mg PO DAILY BRITTANI Stop: 05/24/19 08:59 Last Admin: 04/27/19 09:01 Dose: 400 mg Documented by: Metoprolol Succinate (Toprol Xl) 25 mg PO BID BRITTANI Stop: 05/24/19 20:59 Last Admin: 04/27/19 09:39 Dose: 25 mg Documented by: Miscellaneous (Carbohydrates For Hypoglycemia) 15 - 30 gm PO UD PRN PRN Reason: Hypoglycemia Treatment Stop: 05/23/19 19:44 Multivitamins (Multivitamin Tab) 1 tab PO QAM [facility] Stop: 05/24/19 08:59 Last Admin: 04/27/19 09:01 Dose: 1 tab Documented by: Sotalol HCl (Betapace) 80 mg PO BID [facility] Stop: 05/25/19 06:29 Last Admin: 04/27/19 09:39 Dose: 80 mg Documented by: Vitamin D (Vitamin D3) 1,000 units PO QAM [facility] Stop: 05/24/19 08:59 Last Admin: 04/27/19 09:01 Dose: 1,000 units Documented by: Warfarin Sodium (Coumadin) 10 mg PO [id number]@1600 [facility] Stop: 05/23/19 19:44 Last Admin: 04/26/19 16:03 Dose: 10 mg Documented by: Warfarin Sodium (Coumadin) 10 mg PO Mo@1600 [facility] Stop: 05/26/19 15:59 Last Admin: 04/26/19 17:05 Dose: 10 mg Documented by: Zinc Sulfate (Zinc Sulfate) 220 mg PO DAILY [facility] Stop: 05/24/19 08:59 Last Admin: 04/27/19 09:02 Dose: 220 mg Documented by: (1) Atrial fibrillation Atrial fibrillation type: unspecified Qualified Code(s): I48.91 - Unspecified atrial fibrillation
--- NOTE | 2019-05-03 16:34 | Discharge Summary ---
Date of Service April 27, 2019 Admission HPI Per Admitting Provider A 59-year-old male with significant past medical history including atrial flutter with recent cardioversion has been on Coumadin and beta-tao and other medical condition as mentioned in the medical history apparently was seen in the cardiology clinic today and was noted to have atrial flutter with RVR. He has been complaining of some stomach upset for the last 5 days with nausea vomiting and diarrhea and that has been receding. He denies any fever and/or chills, no history of chest pain or palpitation, no shortness of breath. Denies any problem with his urine and his diarrhea has been improving. Denies any headache blurred vision or any numbness or tingling involving any of the extremities. In the ER he was noted to have EKG finding of atrial flutter with a rate of 125 and his lab works remained unremarkable. He was admitted to to the telemetry unit for continuation of care. Admission Exam Per Admitting Provider Lying in bed comfortably Constitutional: well developed and well nourished; no acute distress and not ill appearing Eyes: PERRL, conjunctivae normal, anicteric sclerae ENMT: external ear and nose normal, oropharynx normal Neck: trachea midline, no thyromegaly Respiratory: normal respiratory effort; no respiratory distress Auscultation: lungs clear to auscultation bilaterally Cardiovascular: Rate/Rhythm: regular rate and regular rhythm Heart Sounds: no murmur Gastrointestinal (Abdomen): Inspection/Auscultation: abdomen normal to inspection and normal bowel sounds; abdomen not distended Percussion/Palpation: abdomen nontender Musculoskeletal: No acute arthritis in any joint Neurologic: Alert, awake and oriented x3 Lymphatic: no cervical or axillary lymphadenopathy Principal Diagnosis Atrial flutter with RVR Discharge Exam Physical Exam: Elderly male lying in bed in no acute distress, comfortable Constitutional: well developed and well nourished; no acute distress and not ill appearing Eyes: PERRL, conjunctivae normal, anicteric sclerae ENMT: external ear and nose normal, oropharynx normal Neck: trachea midline, no thyromegaly Respiratory: normal respiratory effort; no respiratory distress Auscultation: lungs clear to auscultation bilaterally, no wheezing, crackles, or rhonchi Cardiovascular: Rate/Rhythm: regular, no murmurs or gallops Gastrointestinal (Abdomen): Inspection/Auscultation: abdomen normal to inspection and normal bowel sounds; abdomen not distended Percussion/Palpation: abdomen nontender Musculoskeletal: Moves all 4 extremities spontaneously Neurologic: Alert, awake and oriented x3, speech fluent, no facial asymmetry, moves all 4 extremities spontaneously Lymphatic: no cervical or axillary lymphadenopathy Discharge Data Allergies Allergy/AdvReac Type Severity Reaction Status Date / Time codeine Allergy Intermediate GI Verified 04/23/19 17:03 SYMPTOMS and tachycardia morphine Allergy Intermediate GI SYMPTOMS Verified 04/23/19 17:03 cyclobenzaprine Allergy Unknown Unknown Verified 04/23/19 17:05 gabapentin Allergy Unknown Unknown Verified 04/23/19 17:05 Sulfa (Sulfonamide Allergy Unknown unknown Verified 04/23/19 17:03 Antibiotics) tramadol Allergy Unknown Unknown Verified 04/23/19 17:05 Consultations 04/23/19 17:26 ED Decision to Admit Stat 04/24/19 09:31 Consult Cardiology Routine 04/26/19 11:02 Consult Anesthesiology Routine Procedures Performed Operation Date: 04/27/19 08:00 Actual Procedures p Cardioversion - Cristino Levine, Hospital Course (1) Atrial flutter with rapid ventricular response: Recent cardioversion, pt was on Eliquis which was changed to Coumadin Has been having gastroenteritis with nausea, vomiting and diarrhea for the last few days prior to admission Was seen in the cardiology clinic and noted to have atrial flutter with rapid ventricular response and was sent to the ED Received 3 x IV Lopressor 5 mg on admission Heart rate remained around 118 Patient was admitted to telemetry, remained tachycardic Cardiology was consulted, pt was started on sotalol, and the dilt drip was added as well, cont. metoprolol - Now s/p cardioversion (04/27/2019), pt tolerated well, pt is in sinus - Pt will be discharged on sotalol and metoprolol, he will be called for follow up appointment with cardiology - cont. warfarin per anticoagulation clinic (2) Gastroenteritis: Recent gastroenteritis with nausea, vomiting and diarrhea Has been improving Component of dehydration Received intravenous fluids, however with not much improvement in tachycardia (3) HTN (hypertension): Blood pressure acceptable Cont. to monitor (4) T2DM (type 2 diabetes mellitus): Hold metformin while inpt Cont. sliding scale insulin coverage (5) HLD (hyperlipidemia): Continue fish oil/ omega-3s (6) CAD (coronary artery disease): No acute cardiac symptoms Total Time Total Time Spent Total Time Spent (In Minutes): 40 Total Time Includes: Examination of the Patient, Discharge Planning, Medication Reconciliation and Communication With Other Providers Discharge Plan Discharge Items Patient Disposition: Home - Self-Care Reason For Visit: ATRIAL FLUTTER WITH RVR Discharge Diagnosis: Atrial flutter/A. fib with RVR Activity: Resume your previous activity Activity Comment: As tolerated, pace yourself, and ask for help as needed Non-emergency contact: Primary Care Provider and Furniture Technician Call non-emergency contact if: you have any medication questions and your symptoms worsen Follow-up/Referrals: Ajit Wood, [Primary Care Provider] - Diet: Carb Consistent or DM2 and Heart Healthy Addtl Attending Provider Instructions: Make sure you follow-up with your primary care provider within 1 week. Cardiology office will contact you to schedule a follow-up appointment. Take sotalol 80 mg (new medication) twice a day, take the first dose this evening. Take metoprolol 25 mg twice a day, take the first dose this evening. Pending Studies at Discharge: No Stand-Alone Forms: [facility] [employer], Smoking Cessation, Important Visit Information Medications and DC Order Prescriptions: New sotalol 80 mg Tablet 80 mg PO BID 30 Days Qty: 60 RF: 0 metoprolol succinate 25 mg Tablet Extended Release 24 Hr 25 mg PO BID 30 Days Qty: 60 RF: 0 Continued multivitamin Tablet 1 tab PO QAM RF: 0 metformin 1,000 mg Tablet 1,000 mg PO BID RF: 0 zinc 50 mg Tablet 50 mg PO QAM RF: 0 cholecalciferol (vitamin D3) [Vitamin D3] 1,000 unit Capsule 1,000 unit PO QAM RF: 0 omega 7-[id number]-wrs-fish oil [Fish Oil] 1,000 mg (120 mg-180 mg) Capsule 2 cap PO QAM RF: 0 warfarin [Coumadin] 5 mg tablet 5 mg PO .QMON RF: 0 warfarin [Jantoven] 5 mg tablet 10 mg PO [id number] RF: 0 magnesium 250 mg Tablet 250 mg PO DAILY RF: 0 Discontinued metoprolol succinate 25 mg Tablet Extended Release 24 Hr 25 mg PO DAILY RF: 0 Discharge Orders: Discharge Order (Routine); Ordered 11/26/19 Ordered By: Se Desai Admission Data Admit Date/Time: 04/23/19 17:47 Attending Provider: Se Desai Admit Provider: Alejandro Pearce Primary Care Provider: Ajit Wood Other Providers: Cristino Levine ; Se Desai ; Alejandro Pearce ; Kennedy Oneil Other Interventions: Discharge Summary Assessment (RN) Last Done: 04/27/19 14:16 DC Date/Time DO NOT enter until pt leaves facility: 04/27/19 14:40
== END 2019-04-27 14:40 | disposition home or self-care (01) | DRG 310 ==
LOC: ED 15:15 → 2S 17:47 → SUATTDRO 17:47 → 2S 18:57

== ENCOUNTER 2021-03-22 23:18 | Inpatient (IN) ==
[2021-03-22] MEDS ORDERED: PHYTONADIONE 10 MG in SODIUM CHLORIDE 0.9% 50 ML IV ONE (23:40)
[2021-03-22] MEDS ORDERED: SODIUM CHLORIDE 0.9% 1000ML 1,000 ML IV ONE (23:40)
[2021-03-22 23:56] LABS: Hematocrit (blood only) 26.3 % (42-52); Hemoglobin 8.7 g/dL (14.0-18.0); Mean Corpuscular Hemoglobin 30.4 pg (25-34); Mean Corpuscular Hgb Conc 33.1 g/dL (32-36); Mean Platelet Volume 9.6 fL (7.4-10.4); Platelet Count 380 K/uL (130-400); RDW Coefficient of Variation 15.2 % (11.5-14.5); Red Blood Count 2.86 M/uL (4.7-6.1); White Blood Count 12.34 K/uL (4.8-10.8)
[2021-03-23 00:04] LABS: iSTAT Creatinine 1.6 mg/dl (0.6-1.3); iSTAT Hemoglobin 8.5 g/dl (14.0-18.0); iSTAT Ionized Calcium 0.93 mmol/l (1.12-1.32); iSTAT Potassium 3.2 mmol/L (3.3-5.0)
[2021-03-23] MEDS ORDERED: SODIUM CHLORIDE 0.9% 1000ML 1,000 ML IV SCH (00:15)
[2021-03-23 00:18] LABS: Alanine Aminotransferase 22 U/L (12-78); Albumin Level 1.7 gm/dl (3.4-5.0); Aspartate Aminotransferase 13 U/L (15-37); BUN Creatinine Ratio 8.2 (10-20); Bilirubin Direct < 0.1 mg/dl (0-0.2); Blood Urea Nitrogen 14 mg/dl (7-18); Calcium 7.2 mg/dl (8.5-10.1); Carbon Dioxide 20 mmol/L (21-32); Chloride 103 mmol/L (98-107); Est GFR (Non-African American) 42.3 ml/min; Glucose 169 mg/dl (70-99); Lipase 101 U/L (73-393); Potassium 3.1 mmol/L (3.5-5.1); Sodium 136 mmol/L (136-145)
[2021-03-23 00:23] LABS: Alkaline Phosphatase 112 U/L (45-117); Bilirubin,Total 0.3 mg/dl (0.2-1); Total Protein 5.4 gm/dl (6.4-8.2); Troponin I < 0.015 ng/ml (0-0.045)
[2021-03-23 00:29] LABS: Partial Thromboplastin Ratio 1.9; Prothrombin Time 60.9 Seconds (9.0-12.0)
[2021-03-23 00:30] LABS: Basophils # (auto) 0.05 K/uL (0-0.2); Basophils % (auto) 0.4 %; Eosinophils # (auto) 0.33 K/uL (0-0.5); Eosinophils % (auto) 2.7 %; Immature Granulocytes # (auto) 0.04 K/uL (0.00-0.02); Immature Granulocytes % (auto) 0.3 %; Lymphocytes # (auto) 1.94 K/uL (1.2-3.4); Lymphocytes % (auto) 15.7 %; Monocytes # (auto) 1.04 K/uL (0.11-0.59); Monocytes % (auto) 8.4 %; Neutrophils # (auto) 8.94 K/uL (1.4-6.5); Neutrophils % (auto) 72.5 %; Polychromasia 1+
[2021-03-23] MEDS ORDERED: SODIUM CHLORIDE 0.9% 1000ML 1,000 ML IV ONE (00:42)
[2021-03-23] MEDS ORDERED: SODIUM CHLORIDE 0.9% 250 ML IV PRN ×2 (00:45→02:49)
[2021-03-23 01:16] LABS: Appearance Urine Clear (Clear); Bilirubin Urine Negative (Negative); Blood Urine Negative (Negative); Color Urine Dark Yellow; Epithelial Cell Urine Auto >30 /lpf (0-5); Glucose Urine UA Negative (Negative); Ketones Urine Trace (Negative); Leukocyte Esterase Urine Negative (Negative); Nitrite Urine Negative (Negative); Protein Urine 1+ (Negative); RBC Urine Automated 0-4 /hpf (0-4); Specific Gravity Urine 1.019 (1.000-1.030); Urobilinogen Urine Negative (Negative); pH Urine 5.5 (4.5-7.5)
[2021-03-23] MEDS ORDERED: CALCIUM GLUCONATE 10% 2,000 MG in SODIUM CHLORIDE 0.9% 50 ML IV STA (01:27)
[2021-03-23] MEDS ORDERED: POTASSIUM CHLORIDE CRTAB 20 MEQ TABCR PO STA (01:31)
[2021-03-23] MEDS ORDERED: LACTATED RINGER'S 1,000 ML IV ONE (01:39)
[2021-03-23 01:45] LABS: Cast Urine Automated >30 /lpf (0-5)
[2021-03-23] MEDS ORDERED: PROTHROMBIN COMP CONC- KCENTRA 5,000 UNITS in SYRINGE 0 ML IV ONE (01:45)
[2021-03-23 01:46] LABS: Sperm Urine Present (None Prsent)
[2021-03-23 01:49] LABS: Bacteria Urine Automated 1+ (Negative)
--- NOTE | 2021-03-23 01:52 | Emergency Department Note ---
History of Present Illness General Chief complaint: Rectal Bleed Stated complaint: DIARRHEA, RECTAL BLEEDING, NEAR SYNCOPE Time Seen by Provider: 03/22/21 23:40 History of Present Illness Provider Complaint: + gross hematochezia Onset (ago): 1 day(s) Current Pain Intensity: 0 Relieved By: + none Exacerbated By: + bowel movement Context: + alcohol abuse and + anticoagulant use (Coumadin) Associated symptoms: + chills; no abdominal pain, no nausea, no vomiting, no fever or no shortness of breath HPI Narrative: Patient reports he recently tested positive for COVID-19 2 weeks ago. He states he finished a 2-week quarantine. He states in that time. He has not had his INR checked because he was quarantining. Patient states he continued to take his Coumadin as prescribed. Home Medications Medication Instructions Recorded Confirmed Type cholecalciferol (vitamin D3) 25 1,000 unit PO QAM 07/20/18 03/23/21 History mcg (1,000 unit) capsule (Vitamin D3) metformin 1,000 mg tablet 1,000 mg PO BID 07/20/18 03/23/21 History multivitamin 1 tab PO QAM 07/20/18 03/23/21 History zinc 50 mg tablet 50 mg PO QAM 07/20/18 03/23/21 History warfarin 5 mg tablet (Jantoven) See Rx Instructions .ROUTE .COMPLEX 04/23/19 03/23/21 History atorvastatin 40 mg tablet (Lipitor) 40 mg PO QPM 02/29/20 03/23/21 History metoprolol succinate 25 mg 25 mg PO QAM 02/29/20 03/23/21 History tablet,extended release 24 hr sotalol 80 mg tablet 80 mg PO BID 02/29/20 03/23/21 History dulaglutide 1.5 mg/0.5 mL 1.5 mg SUBCUT WK 09/19/20 03/23/21 History subcutaneous pen injector (Trulicity) albuterol sulfate 90 mcg/actuation 1 puff INHALATION DIRECTED PRN 03/22/21 03/23/21 History aerosol inhaler furosemide 40 mg tablet 40 mg PO DAILY 03/22/21 03/22/21 History lisinopril 10 mg tablet 10 mg PO DAILY 03/22/21 03/22/21 History potassium chloride 10 mEq 10 meq PO DAILY 03/22/21 03/23/21 History tablet,extended release(part/cryst) vitamin E 100 unit capsule 100 unit PO DAILY 03/22/21 03/22/21 History Allergies Allergy/AdvReac Type Severity Reaction Status Date / Time gabapentin Allergy Mild Emotional Verified 03/22/21 23:54 changes (makes cry) Sulfa (Sulfonamide Allergy Mild Rash Verified 03/22/21 23:54 Antibiotics) cyclobenzaprine Allergy Unknown ON [facility] MED Verified 03/22/21 23:57 LIST Past Med/Surg History Medical History CAD (coronary artery disease) RCA stent (2003), Left circumflex stent (2004) Diabetes mellitus, type 2 NIDDM (oral + injectable) HLD (hyperlipidemia) HTN (hypertension) Obesity Paroxysmal atrial flutter s/p cardioversion (02/2020) Restless leg syndrome Secondary polycythemia Surgical History H/O eye surgery Plugs implanted R/L eye for dry eye syndrome History of cardioversion x2 History of colonoscopy History of heart artery stent RCA (2003), Left circumflex (2004) History of tonsillectomy History of tooth extraction Family History Father Coronary heart disease Hypertension Mother Family history of diabetes mellitus Coronary heart disease Brother Diabetes Family history of diabetes mellitus Brother Family history of diabetes mellitus Other No family history of adverse response to anesthesia No known problems Social History Smoking Status: Former smoker Second Hand Exposure: Yes ( A CHILD); Hx Alcohol Use: No Preferred Language: Turkmen Communication Ability: Effective Melt Room Operator Required: No Beliefs That Will Affect Care: None marital status: Current Living Situation: Spouse current occupational status: employed Feels Safe at Home: Yes Assistive Devices: Denture - Upper, Denture - Lower and Glasses Review of Systems A total of 10 systems reviewed and were otherwise negative Physical Exam Vital Signs: Vital Signs - 24 hr 03/22/21 23:23 03/22/21 23:33 03/22/21 23:38 Temperature 36.4 C L Temperature Source Temporal Artery Sc an Pulse Rate 108 H 90 Pulse Rate [Apical ] Pulse Rate from Sp O2 Sensor Respiratory Rate 22 19 Respiratory Effort / Characteristics Respiratory Depth Blood Pressure 73/53 L Blood Pressure [Le ft Arm] 87/53 L Blood Pressure Tatiana n 59 Blood Pressure Tatiana n [Left Arm] 64 Blood Pressure Pos ition [Left Arm] Pulse Oximetry 97 Oxygen Delivery Me thod Room Air Sepsis New/Unexpla ined Change in Men jewell Status N/A Sepsis Action Take n by Nursing No Action Required 03/22/21 23:40 03/22/21 23:44 03/22/21 23:45 Temperature Temperature Source Pulse Rate 91 H 91 H Pulse Rate [Apical ] Pulse Rate from Sp O2 Sensor Respiratory Rate 17 18 Respiratory Effort / Characteristics Respiratory Depth Blood Pressure Blood Pressure [Le ft Arm] 82/57 L Blood Pressure Tatiana n Blood Pressure Tatiana n [Left Arm] 65 Blood Pressure Pos ition [Left Arm] Pulse Oximetry Oxygen Delivery Me thod Sepsis New/Unexpla ined Change in Men jewell Status Sepsis Action Take n by Nursing 03/22/21 23:50 03/22/21 23:55 03/23/21 00:00 Temperature Temperature Source Pulse Rate 89 88 89 Pulse Rate [Apical ] Pulse Rate from Sp O2 Sensor 89 89 89 Respiratory Rate 13 21 20 Respiratory Effort / Characteristics Respiratory Depth Blood Pressure 98/55 L 98/50 L Blood Pressure [Le ft Arm] Blood Pressure Tatiana n 69 66 Blood Pressure Tatiana n [Left Arm] Blood Pressure Pos ition [Left Arm] Pulse Oximetry 96 94 93 Oxygen Delivery Me thod Room Air Room Air Room Air Sepsis New/Unexpla ined Change in Men jewell Status Sepsis Action Take n by Nursing 03/23/21 00:30 03/23/21 00:33 03/23/21 00:41 Temperature Temperature Source Pulse Rate 91 H Pulse Rate [Apical ] 89 90 Pulse Rate from Sp O2 Sensor Respiratory Rate 19 22 Respiratory Effort / Characteristics Respiratory Depth Blood Pressure Blood Pressure [Le ft Arm] 90/61 L 78/47 L Blood Pressure Tatiana n Blood Pressure Tatiana n [Left Arm] 70 57 Blood Pressure Pos ition [Left Arm] Pulse Oximetry 93 99 95 Oxygen Delivery Me thod Room Air Room Air Room Air Sepsis New/Unexpla ined Change in Men jewell Status Sepsis Action Take n by Nursing 03/23/21 00:55 03/23/21 01:00 03/23/21 01:33 Temperature 36.9 C Temperature Source Oral Pulse Rate 93 H Pulse Rate [Apical ] 93 H 92 H Pulse Rate from Sp O2 Sensor Respiratory Rate 23 22 18 Respiratory Effort / Characteristics Respiratory Depth Blood Pressure 81/53 L Blood Pressure [Le ft Arm] 103/63 91/51 L Blood Pressure Tatiana n 62 Blood Pressure Tatiana n [Left Arm] 76 64 Blood Pressure Pos ition [Left Arm] Pulse Oximetry 96 97 96 Oxygen Delivery Me thod Room Air Room Air Sepsis New/Unexpla ined Change in Men jewell Status Sepsis Action Take n by Nursing 03/23/21 01:51 03/23/21 02:06 03/23/21 02:26 Temperature 36.5 C 36.5 C 36.5 C Temperature Source Oral Oral Oral Pulse Rate 89 90 88 Pulse Rate [Apical ] Pulse Rate from Sp O2 Sensor Respiratory Rate 23 23 23 Respiratory Effort / Characteristics Respiratory Depth Blood Pressure 110/67 80/53 L 102/58 L Blood Pressure [Le ft Arm] Blood Pressure Tatiana n 81 62 72 Blood Pressure Tatiana n [Left Arm] Blood Pressure Pos ition [Left Arm] Pulse Oximetry 95 95 100 Oxygen Delivery Me thod Sepsis New/Unexpla ined Change in Men jewell Status Sepsis Action Take n by Nursing 03/23/21 02:36 03/23/21 02:50 Temperature Temperature Source Pulse Rate 91 H Pulse Rate [Apical ] 94 H Pulse Rate from Sp O2 Sensor Respiratory Rate 18 20 Respiratory Effort / Characteristics Non-Labored Sponta neous Respiratory Depth Normal Blood Pressure 102/62 Blood Pressure [Le ft Arm] 122/83 Blood Pressure Tatiana n 75 Blood Pressure Tatiana n [Left Arm] 96 Blood Pressure Pos ition [Left Arm] Lying Pulse Oximetry 97 98 Oxygen Delivery Me thod Room Air Sepsis New/Unexpla ined Change in Men jewell Status Sepsis Action Take n by Nursing Physical Exam: Physical Exam GENERAL: Distressed. HENT: Exam performed. - Head: Normocephalic and atraumatic. - Right Ear: External ear normal. No mastoid tenderness. - Left Ear: External ear normal. No mastoid tenderness. - Mouth/Throat: The oropharynx is clear and moist. No trismus in the jaw. No dental abscesses or uvula swelling. No oropharyngeal exudate or tonsillar abscesses. EYES: Conjunctivae and EOM are normal. Pupils are equal, round, and reactive to light. Right eye exhibits no discharge. Left eye exhibits no discharge. No scleral icterus. NECK: Normal range of motion. Neck supple. No JVD present. No spinous process tenderness present. No carotid bruit present. No rigidity. No tracheal deviation and normal range of motion present. No Brudzinski's sign and no Kernig's sign noted. CV: Tachycardic rate, irregular rhythm, normal heart sounds and intact distal pulses. There is no peripheral edema. Palpable radial pulses bue. PULM/CHEST: Effort normal and breath sounds normal. No respiratory distress. No stridor. He has no wheezes. He has no rales. - Chest Wall: He exhibits no tenderness. ABD: The abdomen is soft. Bowel sounds are normal. He has no distension. No mass is present. There is no tenderness. There is no rebound, no guarding, no Topete's sign and no tenderness at McBurney's point. Rovsig negative. Rectal: Bright red blood per rectum. MUSC/SKEL: Normal range of motion. There is no peripheral edema, tenderness or deformity. LYMPH: No cervical adenopathy. NEURO: He is alert and oriented to person, place, and time. He has normal strength. No cranial nerve deficit or sensory deficit. Coordination and gait normal. GCS eye subscore is 4. GCS verbal subscore is 5. GCS motor subscore is 6. Cerebellar tests wnl. SKIN: Pale. PSYCH: He has a normal mood and affect. Behavior is normal. Judgment and thought content normal. Course Course 2340: The patient was evaluated in room B8. A complete history and physical exam was performed Cardiac monitoring: An order was placed for continuous cardiac monitoring. The monitor shows a rate of 100 with sinus tachycardia rhythm Patient was immediately seen on arrival in the emergency department. Patient has bright red blood per rectum. Hypotensive. 2 large-bore IVs were placed. IV fluids were immediately started. Cpfyd-pi-wiaa INR was ordered. Tgqct-kl-yhon INR 8. Vitamin K 10 mg ordered for the patient. 2350: Rtzdq-mf-kbzx i-STAT shows hemoglobin of 8.5 0010: Blood pressure improving with fluids. 0040: Patient becoming hypotensive again. Labs show hemoglobin of 8.7. Leukocytosis 12.3. Hemoglobin is down from baseline of around 14. Repeat IV fluid bolus ordered for the patient given the patient is coming more hypotensive 1 unit packed red blood cells ordered for the patient. 0150: Patient still hypotensive. Blood products are here and are being started. Discussed the case with Dr. Mccray PCC ordered for the patient. Discussed the case with Dr. Trevor Segovia hospitalist for admission. I did recommend ICU and spoke with Venkata [employer] MARKER in ICU to make him aware of the patient also. Administered Medications Lactated Ringer's (Lr) 1,000 mls @ 500 mls/hr IV .Q2H ONE Stop: 03/23/21 03:38 Last Admin: 03/23/21 02:28 Dose: 500 mls/hr Documented by: [id number] Magnesium Sulfate/Dextrose (Magnesium Sulfate / D5w) 1 gm in 100 mls @ 50 mls/hr IV ONE STA Stop: 03/23/21 04:52 Last Admin: 03/23/21 03:01 Dose: 50 mls/hr Documented by: [id number] Discontinued Medications Sodium Chloride (Nss 1000ml) 1,000 mls @ 999 mls/hr IV .Q1H1M ONE Stop: 03/23/21 00:40 Last Infusion: 03/23/21 00:59 Dose: 0 mls/hr Documented by: [id number] Admin: 03/22/21 23:58 Dose: 999 mls/hr Documented by: [id number] Phytonadione 10 mg/ Sodium (Chloride) 51 mls @ 102 mls/hr IV ONE ONE Stop: 03/23/21 00:09 Last Infusion: 03/23/21 00:33 Dose: 0 mls/hr Documented by: [id number] Admin: 03/22/21 23:58 Dose: 102 mls/hr Documented by: [id number] Sodium Chloride (Nss 1000ml) 1,000 mls @ 125 mls/hr IV .Q8H BRITTANI Stop: 04/22/21 00:14 Last Infusion: 03/23/21 02:04 Dose: 0 mls/hr Documented by: [id number] Admin: 03/23/21 00:22 Dose: 125 mls/hr Documented by: [id number] Sodium Chloride (Nss 1000ml) 1,000 mls @ 999 mls/hr IV .Q1H1M ONE Stop: 03/23/21 01:42 Last Infusion: 03/23/21 02:05 Dose: 0 mls/hr Documented by: [id number] Admin: 03/23/21 00:45 Dose: 999 mls/hr Documented by: [id number] Calcium Gluconate 2,000 mg/ (Sodium Chloride) 70 mls @ 240 mls/hr IV NOW STA Stop: 03/23/21 01:41 Last Infusion: 03/23/21 02:29 Dose: 0 mls/hr Documented by: [id number] Admin: 03/23/21 02:09 Dose: 240 mls/hr Documented by: [id number] Prothrombin Complex Concent ( (Human) 5,000 units/ Syringe) 200 mls @ 10 mls/min IV NOW ONE; Protocol Stop: 03/23/21 02:04 Last Admin: 03/23/21 01:49 Dose: 10 mls/min Documented by: [id number] Potassium Chloride (Potassium Chloride Crtab 20 Meq Tabcr) 40 meq PO NOW STA Stop: 03/23/21 01:32 Last Admin: 03/23/21 02:10 Dose: 40 meq Documented by: [id number] Medical Decision Making Laboratory Data Result diagrams: 03/22/21 23:37 03/22/21 23:37 Lab Results 03/22/21 03/22/21 03/22/21 Range/Units 23:37 23:37 23:37 WBC 12.34 H (4.8-10.8) K/uL RBC 2.86 L (4.7-6.1) M/uL Hgb 8.7 L (14.0-18.0) g/dL POC Hgb (14.0-18.0) g/dl Hct 26.3 L (42-52) % POC Hct (42-52) % MCV 92.0 (80-100) fL MCH 30.4 (25-34) pg MCHC 33.1 (32-36) g/dL RDW Std Deviation 51.0 H (36.4-46.3) fL RDW Coeff of Mychal 15.2 H (11.5-14.5) % Plt Count 380 (130-400) K/uL MPV 9.6 (7.4-10.4) fL Immature Gran % (Auto) 0.3 % Neut % (Auto) 72.5 % Lymph % (Auto) 15.7 % Ross % (Auto) 8.4 % Eos % (Auto) 2.7 % Baso % (Auto) 0.4 % Neut # (Auto) 8.94 H (1.4-6.5) K/uL Lymph # (Auto) 1.94 (1.2-3.4) K/uL Ross # (Auto) 1.04 H (0.11-0.59) K/uL Eos # (Auto) 0.33 (0-0.5) K/uL Baso # (Auto) 0.05 (0-0.2) K/uL Immature Gran # (Auto) 0.04 H (0.00-0.02) K/uL Polychromasia 1+ PT 60.9 H (9.0-12.0) Seconds INR 7.0 H* (0.9-1.1) APTT 49.0 H* (21.0-31.0) Seconds PTT Ratio 1.9 POC Sodium (135-144) mmol/L Sodium (136-145) mmol/L POC Potassium (3.3-5.0) mmol/L Potassium (3.5-5.1) mmol/L POC Chloride (101-112) mmol/L Chloride (98-107) mmol/L Carbon Dioxide (21-32) mmol/L POC Total CO2 (24-31) mmol/L Anion Gap (3-11) POC Anion Gap (16-25) mmol/L POC BUN (7-18) mg/dl BUN (7-18) mg/dl Creatinine (0.6-1.4) mg/dl POC Creatinine (0.6-1.3) mg/dl Est Cr Clr Drug Dosing Est GFR ( Amer) ml/min Est GFR (Non-Af Amer) ml/min BUN/Creatinine Ratio (10-20) Glucose (70-99) mg/dl POC Glucose (other) (70-99) mg/dl Calcium (8.5-10.1) mg/dl POC Ioniz Calcium Kiran (1.12-1.32) mmol/l Magnesium (1.8-2.4) mg/dl Total Bilirubin (0.2-1) mg/dl Direct Bilirubin (0-0.2) mg/dl AST (15-37) U/L ALT (12-78) U/L Alkaline Phosphatase (45-117) U/L Troponin I (0-0.045) ng/ml Total Protein (6.4-8.2) gm/dl Albumin (3.4-5.0) gm/dl Lipase (73-393) U/L TSH (0.300-4.500) uIu/ml Free T4 (0.8-1.6) ng/dl Urine Color Urine Appearance (Clear) Urine pH (4.5-7.5) Ur Specific Weed (1.000-1.030) Urine Protein (Negative) Urine Glucose (UA) (Negative) Urine Ketones (Negative) Urine Blood (Negative) Urine Nitrite (Negative) Urine Bilirubin (Negative) Urine Urobilinogen (Negative) Ur Leukocyte Esterase (Negative) Urine WBC (Auto) (0-5) /hpf Urine RBC (Auto) (0-4) /hpf U Hyaline Cast (Auto) (0-5) /lpf U Epithel Cells (Auto) (0-5) /lpf Urine Bacteria (Auto) (Negative) Ur Renal Epithelial Cell Granular Casts (0) /lpf Urine Sperm (None Prsent) COVID-19 Eval Order SARS-CoV-2 (PCR) (Negative) Blood Type A Positive Antibody Screen NEGATIVE Crossmatch See Detail 03/22/21 03/22/21 03/22/21 Range/Units 23:37 23:48 23:52 WBC (4.8-10.8) K/uL RBC (4.7-6.1) M/uL Hgb (14.0-18.0) g/dL POC Hgb 8.5 L (14.0-18.0) g/dl Hct (42-52) % POC Hct 25 L (42-52) % MCV (80-100) fL MCH (25-34) pg MCHC (32-36) g/dL RDW Std Deviation (36.4-46.3) fL RDW Coeff of Mychal (11.5-14.5) % Plt Count (130-400) K/uL MPV (7.4-10.4) fL Immature Gran % (Auto) % Neut % (Auto) % Lymph % (Auto) % Ross % (Auto) % Eos % (Auto) % Baso % (Auto) % Neut # (Auto) (1.4-6.5) K/uL Lymph # (Auto) (1.2-3.4) K/uL Ross # (Auto) (0.11-0.59) K/uL Eos # (Auto) (0-0.5) K/uL Baso # (Auto) (0-0.2) K/uL Immature Gran # (Auto) (0.00-0.02) K/uL Polychromasia PT (9.0-12.0) Seconds INR (0.9-1.1) APTT (21.0-31.0) Seconds PTT Ratio POC Sodium 133 L (135-144) mmol/L Sodium 136 (136-145) mmol/L POC Potassium 3.2 L (3.3-5.0) mmol/L Potassium 3.1 L (3.5-5.1) mmol/L POC Chloride 100 L (101-112) mmol/L Chloride 103 (98-107) mmol/L Carbon Dioxide 20 L (21-32) mmol/L POC Total CO2 18 L (24-31) mmol/L Anion Gap 12.0 H (3-11) POC Anion Gap 19.0 (16-25) mmol/L POC BUN 14 (7-18) mg/dl BUN 14 (7-18) mg/dl Creatinine 1.72 H (0.6-1.4) mg/dl POC Creatinine 1.6 H (0.6-1.3) mg/dl Est Cr Clr Drug Dosing Not Reportable Est GFR ( Amer) 49.0 ml/min Est GFR (Non-Af Amer) 42.3 ml/min BUN/Creatinine Ratio 8.2 L (10-20) Glucose 169 H (70-99) mg/dl POC Glucose (other) 173 H (70-99) mg/dl Calcium 7.2 L (8.5-10.1) mg/dl POC Ioniz Calcium Kiran 0.93 L (1.12-1.32) mmol/l Magnesium 1.8 (1.8-2.4) mg/dl Total Bilirubin 0.3 (0.2-1) mg/dl Direct Bilirubin < 0.1 (0-0.2) mg/dl AST 13 L (15-37) U/L ALT 22 (12-78) U/L Alkaline Phosphatase 112 (45-117) U/L Troponin I < 0.015 (0-0.045) ng/ml Total Protein 5.4 L (6.4-8.2) gm/dl Albumin 1.7 L (3.4-5.0) gm/dl Lipase 101 (73-393) U/L TSH 5.730 H (0.300-4.500) uIu/ml Free T4 0.97 (0.8-1.6) ng/dl Urine Color Urine Appearance (Clear) Urine pH (4.5-7.5) Ur Specific Weed (1.000-1.030) Urine Protein (Negative) Urine Glucose (UA) (Negative) Urine Ketones (Negative) Urine Blood (Negative) Urine Nitrite (Negative) Urine Bilirubin (Negative) Urine Urobilinogen (Negative) Ur Leukocyte Esterase (Negative) Urine WBC (Auto) (0-5) /hpf Urine RBC (Auto) (0-4) /hpf U Hyaline Cast (Auto) (0-5) /lpf U Epithel Cells (Auto) (0-5) /lpf Urine Bacteria (Auto) (Negative) Ur Renal Epithelial Cell Granular Casts (0) /lpf Urine Sperm (None Prsent) COVID-19 Eval Order Covid19 at [facility] SARS-CoV-2 (PCR) (Negative) Blood Type Antibody Screen Crossmatch 03/22/21 03/23/21 Range/Units 23:52 00:54 WBC (4.8-10.8) K/uL RBC (4.7-6.1) M/uL Hgb (14.0-18.0) g/dL POC Hgb (14.0-18.0) g/dl Hct (42-52) % POC Hct (42-52) % MCV (80-100) fL MCH (25-34) pg MCHC (32-36) g/dL RDW Std Deviation (36.4-46.3) fL RDW Coeff of Mychal (11.5-14.5) % Plt Count (130-400) K/uL MPV (7.4-10.4) fL Immature Gran % (Auto) % Neut % (Auto) % Lymph % (Auto) % Ross % (Auto) % Eos % (Auto) % Baso % (Auto) % Neut # (Auto) (1.4-6.5) K/uL Lymph # (Auto) (1.2-3.4) K/uL Ross # (Auto) (0.11-0.59) K/uL Eos # (Auto) (0-0.5) K/uL Baso # (Auto) (0-0.2) K/uL Immature Gran # (Auto) (0.00-0.02) K/uL Polychromasia PT (9.0-12.0) Seconds INR (0.9-1.1) APTT (21.0-31.0) Seconds PTT Ratio POC Sodium (135-144) mmol/L Sodium (136-145) mmol/L POC Potassium (3.3-5.0) mmol/L Potassium (3.5-5.1) mmol/L POC Chloride (101-112) mmol/L Chloride (98-107) mmol/L Carbon Dioxide (21-32) mmol/L POC Total CO2 (24-31) mmol/L Anion Gap (3-11) POC Anion Gap (16-25) mmol/L POC BUN (7-18) mg/dl BUN (7-18) mg/dl Creatinine (0.6-1.4) mg/dl POC Creatinine (0.6-1.3) mg/dl Est Cr Clr Drug Dosing Est GFR ( Amer) ml/min Est GFR (Non-Af Amer) ml/min BUN/Creatinine Ratio (10-20) Glucose (70-99) mg/dl POC Glucose (other) (70-99) mg/dl Calcium (8.5-10.1) mg/dl POC Ioniz Calcium Kiran (1.12-1.32) mmol/l Magnesium (1.8-2.4) mg/dl Total Bilirubin (0.2-1) mg/dl Direct Bilirubin (0-0.2) mg/dl AST (15-37) U/L ALT (12-78) U/L Alkaline Phosphatase (45-117) U/L Troponin I (0-0.045) ng/ml Total Protein (6.4-8.2) gm/dl Albumin (3.4-5.0) gm/dl Lipase (73-393) U/L TSH (0.300-4.500) uIu/ml Free T4 (0.8-1.6) ng/dl Urine Color Dark Yellow Urine Appearance Clear (Clear) Urine pH 5.5 (4.5-7.5) Ur Specific Weed 1.019 (1.000-1.030) Urine Protein 1+ H (Negative) Urine Glucose (UA) Negative (Negative) Urine Ketones Trace H (Negative) Urine Blood Negative (Negative) Urine Nitrite Negative (Negative) Urine Bilirubin Negative (Negative) Urine Urobilinogen Negative (Negative) Ur Leukocyte Esterase Negative (Negative) Urine WBC (Auto) 5-10 H (0-5) /hpf Urine RBC (Auto) 0-4 (0-4) /hpf U Hyaline Cast (Auto) >30 H (0-5) /lpf U Epithel Cells (Auto) >30 H (0-5) /lpf Urine Bacteria (Auto) 1+ H (Negative) Ur Renal Epithelial Cell Not Reportable Granular Casts 1-5 H (0) /lpf Urine Sperm Present A (None Prsent) COVID-19 Eval Order SARS-CoV-2 (PCR) POSITIVE A* (Negative) Blood Type Antibody Screen Crossmatch Imaging Data My Impression: Chest x-ray: No significant change from the x-ray done in September 2020. ECG Data Additional Comments: EKG #1 at 2352: Sinus rhythm with rate of 89. CT QRS intervals within normal limits QTC 559. PVCs present. No ST elevation or ST depression. EKG #2 at 0208: Sinus rhythm with rate of 89. CT QRS intervals are within normal limits. QTc 562. No ST elevation or ST depression. MDM Narrative 2340: The patient was evaluated in room B8. A complete history and physical exam was performed Cardiac monitoring: An order was placed for continuous cardiac monitoring. The monitor shows a rate of 100 with sinus tachycardia rhythm Patient was immediately seen on arrival in the emergency department. Patient has bright red blood per rectum. Hypotensive. 2 large-bore IVs were placed. IV fluids were immediately started. Qqvws-[id number] INR was ordered. Lrxtp-tr-yqro INR 8. Vitamin K 10 mg ordered for the patient. 2350: Fsdzq-od-uqvm i-STAT shows hemoglobin of 8.5 0010: Blood pressure improving with fluids. 0040: Patient becoming hypotensive again. Labs show hemoglobin of 8.7. Leukocytosis 12.3. Hemoglobin is down from baseline of around 14. Repeat IV fluid bolus ordered for the patient given the patient is coming more hypotensive 1 unit packed red blood cells ordered for the patient. 0150: Patient still hypotensive. Blood products are here and are being started. Discussed the case with Dr. Mccray PCC ordered for the patient. Discussed the case with Dr. Trevor Segovia hospitalist for admission. I did recommend ICU and spoke with Venkata [employer] MARK[employer] in ICU to make him aware of the patient also. Impression & Plan Acute GI bleeding, Supratherapeutic INR, Prolonged QT interval Critical Care Time Critical Care Time: Yes Total Critical Care Time: 120 I have personally spent greater than 120 minutes of critical care time in the direct management of this patient. This includes bedside care, interpretation of diagnostic studies, and testing, discussion with consultants, patient, and family members, and other required patient management activities. This 120 minutes is in excess of all separately billable procedures. Discharge Plan Visit Data Chief Complaint: Rectal Bleed Stated Complaint: DIARRHEA, RECTAL BLEEDING, NEAR SYNCOPE ED Provider: Kedar Dacosta Discharge Problem: Acute GI bleeding, Supratherapeutic INR, Prolonged QT interval Patient Disposition: Admitted As Inpatient Forms Stand Alone Forms: My [facility] Prescriptions Prescriptions: No Action atorvastatin [Lipitor] 40 mg Tablet 40 mg PO QPM RF: 0 sotalol 80 mg Tablet 80 mg PO BID RF: 0 metoprolol succinate 25 mg Tablet Extended Release 24 Hr 25 mg PO QAM RF: 0 multivitamin Tablet 1 tab PO QAM RF: 0 metformin 1,000 mg Tablet 1,000 mg PO BID RF: 0 zinc 50 mg Tablet 50 mg PO QAM RF: 0 cholecalciferol (vitamin D3) [Vitamin D3] 1,000 unit Capsule 1,000 unit PO QAM RF: 0 warfarin [Jantoven] 5 mg tablet See Rx Instructions .ROUTE .COMPLEX RF: 0 Trulicity 1.5 mg/0.5 mL Pen Injector 1.5 mg SUBCUT WK RF: 0 furosemide 40 mg tablet 40 mg PO DAILY RF: 0 vitamin E 100 unit Capsule 100 unit PO DAILY RF: 0 lisinopril 10 mg tablet 10 mg PO DAILY RF: 0 albuterol sulfate 90 mcg/actuation Hfa Aerosol Inhaler 1 puff INHALATION DIRECTED PRN (Reason: Shortness Of Breath) RF: 0 potassium chloride 10 mEq tablet,ER particles/crystals 10 meq PO DAILY RF: 0 Referrals Referrals: PCP,NO [Primary Care Provider] -
--- NOTE | 2021-03-23 02:04 | History & Physical Report ---
Date of Service March 23, 2021 Assessment & Plan (1) Hypotension: Plan: Secondary to hemorrhagic shock secondary to L GIB in the setting of Coumadin coagulopathy Diarrheal illness secondary to recent COVID-19 illness Acute on chronic anemia, hemoglobin drop from baseline secondary to above ARF secondary to illness, likely ATN from hypovolemia hx CAD status post stent hx atrial flutter status post cardioversion on Coumadin, px NSR, INR supratherapeutic hyperlipidemia on statin Rx DM2 on oral medications, reasonable control as of recent hemoglobin A1c of 7.5 last August 2020 Hypokalemia secondary to diarrhea past tobacco abuse ICU monitoring Monitor creatinine response to IVF, check lactic acid as a guide to IV hydration Transfuse PRBC to maintain hemoglobin above 8 Appropriate to hold Coumadin for now GI consult Re: L GIB Appropriate to hold antihypertensives for now given hypotension Monitor renal function, renal ultrasound if without improvement Basal insulin adjusted for clear liquid diet for now, ISS BG goal 1 40-1 80, carb count coverage, update hemoglobin A1c Replace electrolytes DVT prophylaxis. SCDs if INR less than 2 while Coumadin on hold RE L GIB Full code Patient's requesting updates from providers. Luz Elena Nessa Ivyaaron, contact #[phone]. Text document was generated using [employer] voice recognition software. It may contain grammatical or spelling errors. Kindly contact undersigned for clarification of any documentation item in question. History of Present Illness Chief Complaint: Bloody diarrhea Primary Care Provider: Juliette Ryan History obtained from patient, family, and records. Medical history significant for CAD status post stent, atrial flutter status post cardioversion on Coumadin, hypertension, hyperlipidemia, DM2 on oral medications, chronic anemia (baseline hemoglobin of 13), past tobacco abuse. Last confinement April 2019 for atrial flutter status post cardioversion. Sotalol added to patient's metoprolol. Patient discharged on Coumadin in place of Eliquis. 3 weeks ago, patient and had self-limited sinus congestion symptoms without chest pain, S OB. Patient's had a positive COVID-19 test. Patient self isolated himself for presumptive COVID-19 infection. Patient has not received COVID-19 vaccination. A week later, patient later on developed watery diarrhea later noted to be bloody without abdominal pain symptoms. No recent antibiotic Rx. No fever, no chills. Patient and tried to contact outpatient providers to inquire about home medications possibly causing diarrhea. Patient later on noted dizziness worse on standing up. No headache symptoms. Patient brought to the ER for evaluation by . Initial SBP 70s. Hemoglobin noted to be 8.7, INR noted to be 7. Vitamin K and Kcentra administered for Coumadin coagulopathy. Medical History as above 2013 colonoscopy showed hemorrhoids, fair preparation Surgical History : Tonsillectomy/adenoidectomy, ulnar nerve revision Family History : DM, heart disease Personal/Social history : Past tobacco abuse, occasional EtOH intake, currently on workers Compensation due to back issues Allergies Allergy/AdvReac Type Severity Reaction Status Date / Time gabapentin Allergy Mild Emotional Verified 03/22/21 23:54 changes (makes cry) Sulfa (Sulfonamide Allergy Mild Rash Verified 03/22/21 23:54 Antibiotics) cyclobenzaprine Allergy Unknown ON [facility] MED Verified 03/22/21 23:57 LIST Home Medications Medication Instructions Recorded Confirmed Type cholecalciferol (vitamin D3) 25 1,000 unit PO QAM 07/20/18 03/23/21 History mcg (1,000 unit) capsule (Vitamin D3) metformin 1,000 mg tablet 1,000 mg PO BID 07/20/18 03/23/21 History multivitamin 1 tab PO QAM 07/20/18 03/23/21 History zinc 50 mg tablet 50 mg PO QAM 07/20/18 03/23/21 History warfarin 5 mg tablet (Jantoven) See Rx Instructions .ROUTE .COMPLEX 04/23/19 03/23/21 History atorvastatin 40 mg tablet (Lipitor) 40 mg PO QPM 02/29/20 03/23/21 History metoprolol succinate 25 mg 25 mg PO QAM 02/29/20 03/23/21 History tablet,extended release 24 hr sotalol 80 mg tablet 80 mg PO BID 02/29/20 03/23/21 History dulaglutide 1.5 mg/0.5 mL 1.5 mg SUBCUT WK 09/19/20 03/23/21 History subcutaneous pen injector (Trulicity) albuterol sulfate 90 mcg/actuation 1 puff INHALATION DIRECTED PRN 03/22/21 03/23/21 History aerosol inhaler furosemide 40 mg tablet 40 mg PO DAILY 03/22/21 03/22/21 History lisinopril 10 mg tablet 10 mg PO DAILY 03/22/21 03/22/21 History potassium chloride 10 mEq 10 meq PO DAILY 03/22/21 03/23/21 History tablet,extended release(part/cryst) vitamin E 100 unit capsule 100 unit PO DAILY 03/22/21 03/22/21 History Past Med/Surg History Medical History CAD (coronary artery disease) RCA stent (2003), Left circumflex stent (2004) Diabetes mellitus, type 2 NIDDM (oral + injectable) HLD (hyperlipidemia) HTN (hypertension) Obesity Paroxysmal atrial flutter s/p cardioversion (02/2020) Restless leg syndrome Secondary polycythemia Surgical History H/O eye surgery Plugs implanted R/L eye for dry eye syndrome History of cardioversion x2 History of colonoscopy History of heart artery stent RCA (2003), Left circumflex (2004) History of tonsillectomy History of tooth extraction Family History Father Coronary heart disease Hypertension Mother Family history of diabetes mellitus Coronary heart disease Brother Diabetes Family history of diabetes mellitus Brother Family history of diabetes mellitus Other No family history of adverse response to anesthesia No known problems Social History Smoking Status: Former smoker Second Hand Exposure: Yes ( A CHILD); Hx Alcohol Use: No Hx Substance Use: No Preferred Language: Croatian Communication Ability: Effective 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 Beliefs That Will Affect Care: None marital status: Current Living Situation: Spouse current occupational status: employed Feels Safe at Home: Yes Assistive Devices: Cane, Denture - Upper, Denture - Lower and Glasses Review of Systems Review of Systems: As per HPI, all 10 systems reviewed, all other ROS negative Physical Exam Physical Exam: GENERAL: Comfortable, obese, no respiratory distress SKIN: Pallor , warm HEENT: Partial alopecia, pale palpebral conjunctivae, no ptosis, dry buccal mucosa NECK : Supple, short neck, no tenderness CHEST : CTA, no tenderness HEART : RRR, no obvious murmurs ABDOMEN: Some distention, nontender EXTREMITIES : No LE swelling/tenderness, no other conspicuous deformities noted NEUROLOGIC : Coherent, no facial asymmetry, no other gross focality Results & Data Results & Data ([facility]) Vital Signs (Past 12 Hours) Vital Signs Temp Pulse Pulse Resp BP BP Pulse Ox 03/23/21 01:51 36.5 C 89 23 110/67 95 03/23/21 01:33 36.9 C 93 H 18 81/53 L 96 03/23/21 01:00 92 H 22 91/51 L 97 03/23/21 00:55 93 H 23 103/63 96 03/23/21 00:41 90 22 78/47 L 95 03/23/21 00:33 91 H 99 03/23/21 00:30 89 19 90/61 L 93 03/23/21 00:00 89 20 93 03/22/21 23:55 88 21 98/50 L 94 03/22/21 23:50 89 13 98/55 L 96 03/22/21 23:45 91 H 18 03/22/21 23:44 82/57 L 03/22/21 23:40 91 H 17 03/22/21 23:38 90 19 03/22/21 23:33 87/53 L 03/22/21 23:23 36.4 C L 108 H 22 73/53 L 97 Laboratory Results Laboratory Results WBC 12.34 K/uL (4.8-10.8) H 03/22/21 23:37 RBC 2.86 M/uL (4.7-6.1) L 03/22/21 23:37 Hgb 8.7 g/dL (14.0-18.0) L 03/22/21 23:37 POC Hgb 8.5 g/dl (14.0-18.0) L 03/22/21 23:48 Hct 26.3 % (42-52) L 03/22/21 23:37 POC Hct 25 % (42-52) L 03/22/21 23:48 MCV 92.0 fL (80-100) 03/22/21 23:37 MCH 30.4 pg (25-34) 03/22/21 23:37 MCHC 33.1 g/dL (32-36) 03/22/21 23:37 RDW Std Deviation 51.0 fL (36.4-46.3) H 03/22/21 23:37 RDW Coeff of Mychal 15.2 % (11.5-14.5) H 03/22/21 23:37 Plt Count 380 K/uL (130-400) 03/22/21 23:37 MPV 9.6 fL (7.4-10.4) 03/22/21 23:37 Immature Gran % (Auto) 0.3 % 03/22/21 23:37 Neut % (Auto) 72.5 % 03/22/21 23:37 Lymph % (Auto) 15.7 % 03/22/21 23:37 [place] % (Auto) 8.4 % 03/22/21 23:37 Eos % (Auto) 2.7 % 03/22/21 23:37 Baso % (Auto) 0.4 % 03/22/21 23:37 Neut # (Auto) 8.94 K/uL (1.4-6.5) H 03/22/21 23:37 Lymph # (Auto) 1.94 K/uL (1.2-3.4) 03/22/21 23:37 [place] # (Auto) 1.04 K/uL (0.11-0.59) H 03/22/21 23:37 Eos # (Auto) 0.33 K/uL (0-0.5) 03/22/21 23:37 Baso # (Auto) 0.05 K/uL (0-0.2) 03/22/21 23:37 Immature Gran # (Auto) 0.04 K/uL (0.00-0.02) H 03/22/21 23:37 Polychromasia 1+ 03/22/21 23:37 PT 60.9 Seconds (9.0-12.0) H 03/22/21 23:37 INR 7.0 (0.9-1.1) H* 03/22/21 23:37 APTT 49.0 Seconds (21.0-31.0) H* 03/22/21 23:37 PTT Ratio 1.9 03/22/21 23:37 POC Sodium 133 mmol/L (135-144) L 03/22/21 23:48 Sodium 136 mmol/L (136-145) 03/22/21 23:37 POC Potassium 3.2 mmol/L (3.3-5.0) L 03/22/21 23:48 Potassium 3.1 mmol/L (3.5-5.1) L 03/22/21 23:37 POC Chloride 100 mmol/L (101-112) L 03/22/21 23:48 Chloride 103 mmol/L (98-107) 03/22/21 23:37 Carbon Dioxide 20 mmol/L (21-32) L 03/22/21 23:37 POC Total CO2 18 mmol/L (24-31) L 03/22/21 23:48 Anion Gap 12.0 (3-11) H 03/22/21 23:37 POC Anion Gap 19.0 mmol/L (16-25) 03/22/21 23:48 POC BUN 14 mg/dl (7-18) 03/22/21 23:48 BUN 14 mg/dl (7-18) 03/22/21 23:37 Creatinine 1.72 mg/dl (0.6-1.4) H 03/22/21 23:37 POC Creatinine 1.6 mg/dl (0.6-1.3) H 03/22/21 23:48 Est Cr Clr Drug Dosing Not Reportable 03/22/21 23:37 Est GFR ( Amer) 49.0 ml/min 03/22/21 23:37 Est GFR (Non-Af Amer) 42.3 ml/min 03/22/21 23:37 BUN/Creatinine Ratio 8.2 (10-20) L 03/22/21 23:37 Glucose 169 mg/dl (70-99) H 03/22/21 23:37 POC Glucose (other) 173 mg/dl (70-99) H 03/22/21 23:48 Calcium 7.2 mg/dl (8.5-10.1) L 03/22/21 23:37 POC Ioniz Calcium Kiran 0.93 mmol/l (1.12-1.32) L 03/22/21 23:48 Total Bilirubin 0.3 mg/dl (0.2-1) 03/22/21 23:37 Direct Bilirubin < 0.1 mg/dl (0-0.2) 03/22/21 23:37 AST 13 U/L (15-37) L 03/22/21 23:37 ALT 22 U/L (12-78) 03/22/21 23:37 Alkaline Phosphatase 112 U/L (45-117) 03/22/21 23:37 Troponin I < 0.015 ng/ml (0-0.045) 03/22/21 23:37 Total Protein 5.4 gm/dl (6.4-8.2) L 03/22/21 23:37 Albumin 1.7 gm/dl (3.4-5.0) L 03/22/21 23:37 Lipase 101 U/L (73-393) 03/22/21 23:37 Urine Color Dark Yellow 03/23/21 00:54 Urine Appearance Clear (Clear) 03/23/21 00:54 Urine pH 5.5 (4.5-7.5) 03/23/21 00:54 Ur Specific [place] 1.019 (1.000-1.030) 03/23/21 00:54 Urine Protein 1+ (Negative) H 03/23/21 00:54 Urine Glucose (UA) Negative (Negative) 03/23/21 00:54 Urine Ketones Trace (Negative) H 03/23/21 00:54 Urine Blood Negative (Negative) 03/23/21 00:54 Urine Nitrite Negative (Negative) 03/23/21 00:54 Urine Bilirubin Negative (Negative) 03/23/21 00:54 Urine Urobilinogen Negative (Negative) 03/23/21 00:54 Ur Leukocyte Esterase Negative (Negative) 03/23/21 00:54 Urine WBC (Auto) 5-10 /hpf (0-5) H 03/23/21 00:54 Urine RBC (Auto) 0-4 /hpf (0-4) 03/23/21 00:54 U Hyaline Cast (Auto) >30 /lpf (0-5) H 03/23/21 00:54 U Epithel Cells (Auto) >30 /lpf (0-5) H 03/23/21 00:54 Urine Bacteria (Auto) 1+ (Negative) H 03/23/21 00:54 Ur Renal Epithelial Cell Not Reportable 03/23/21 00:54 Granular Casts 1-5 /lpf (0) H 03/23/21 00:54 Urine Sperm Present (None Prsent) A 03/23/21 00:54 COVID-19 Eval Order Covid19 at [facility] 03/22/21 23:52 SARS-CoV-2 (PCR) POSITIVE (Negative) A* 03/22/21 23:52 Blood Type A Positive 03/22/21 23:37 Antibody Screen NEGATIVE 03/22/21 23:37 Crossmatch See Detail 03/22/21 23:37 Diagnostic Findings Chest x-ray as per my interpretation cardiomegaly EKG as per my interpretation : Rate 90, NSR, normal axis, diffuse T wave abnormalities, inferior infarct, low voltage
[2021-03-23 02:34] LABS: Magnesium 1.8 mg/dl (1.8-2.4)
[2021-03-23 02:47] LABS: T4 Free Thyroxine 0.97 ng/dl (0.8-1.6)
[2021-03-23] MEDS ORDERED: MAGNESIUM SULFATE / D5W 1 GM/100 ML BAG IV STA (02:53)
[2021-03-23] MEDS ORDERED: POTASSIUM CHLORIDE CRTAB 20 MEQ TABCR PO ONE (04:00)
[2021-03-23] MEDS ORDERED: POTASSIUM CHLORIDE 40 MEQ in SODIUM CHLORIDE 0.9% 1000ML 1,000 ML IV ONE (04:30)
[2021-03-23] MEDS ORDERED: PROMETHAZINE HCL 12.5 MG in SODIUM CHLORIDE 0.9% 50 ML IV PRN (04:31)
[2021-03-23] MEDS ORDERED: CARBOHYDRATES FOR HYPOGLYCEMIA PO PRN (04:31)
[2021-03-23] MEDS ORDERED: ICU PROTOCOL FOR HYPERGLYCEMIA PRN (04:31)
[2021-03-23] MEDS ORDERED: GLUCOSE 40% GEL 15 GM TUBE PO PRN (04:31)
[2021-03-23] MEDS ORDERED: DEXTROSE 50% 50 ML SYRINGE IV PRN (04:31)
[2021-03-23] MEDS ORDERED: GLUCOSE 10 TABS/TUBE PO PRN (04:31)
[2021-03-23] MEDS ORDERED: ACETAMINOPHEN 325 MG TAB PO PRN (04:31)
[2021-03-23] MEDS ORDERED: GLUCAGON FOR INJ 1 MG VIAL SQ PRN (04:31)
[2021-03-23] MEDS ORDERED: oxyCODONE HCL IR 5 MG TAB (IMMEDIATE RELEASE) PO PRN (04:31)
[2021-03-23] MEDS: INSULIN ASPART 100 UNITS/ML 3 ML PEN SC SCH ×5 (04:49→21:57)
--- NOTE | 2021-03-23 05:44 | Critical Care Consultation ---
Date of Consultation March 23, 2021 Assessment & Plan (1) Acute GI bleeding: Impression: 61-year-old male presents to the ICU with acute GI bleed, anemia requiring blood transfusion, and supratherapeutic INR Neuro - CAM ICU: Negative Cardiac - Hypotensionimproved following volume resuscitation. Currently maintaining maps greater than 65 without use of vasopressors. We will continue to hold antihypertensives Proximal A. fibcurrently NSR on monitor -Hold Coumadin for supratherapeutic INR and GI bleed, hold MTP due to hypotension -Continuous monitor on telemetry HLDcontinue statin Respiratory - Currently maintaining oxygen saturation on room air. No history of pulmonary di sease. Lungs clear to auscultation Continuous monitoring on pulse ox GI - Acute GI bleedpatient with weeklong history of melena and heme positive stool in ED -Likely secondary to supratherapeutic INR, status post prothrombin complex and vitamin K -GI consulted follow-up recommendations regarding colonoscopy -N.p.o. RENAL/LYTES - AKIcreatinine 1.72 with prior baseline 0.71, suspect prerenal in the setting of hypotension/GI bleed -Continue with fluid resuscitation -Maintain maps greater than 65 -Avoid nephrotoxins renally adjust medication -Monitor electrolytes and replete as indicated -Continue to monitor routine BMPs and trend creatinine and BUN -Consider nephrology consult if worsening - Strict I's and O's ENDO - DM type IIcurrently on oral medications, will transition to sliding scale -Hemoglobin A1c pending -ICU hyperglycemic protocol HEME - Acute blood loss anemiasecondary to acute GI bleed -Hemoglobin 8 with prior baseline 13, transfuse 1 unit RBCs thus far -Continue to trend H&H and transfuse as indicated Supratherapeutic INRstatus post prothrombin complex and vitamin K IV administered in ED -Repeat coags pending -Holding Coumadin ID - Notification for infectious process at this time LINES/IV ACCESS - Peripheral IVs DVT PROPHYLAXIS - SCDs, hold anticoagulation in the setting of GI bleed Thank you for allowing us to participate in the care of this patient. Please refer to my attending physician's documentation for any further recommendations. (2) Hypotension: (3) Supratherapeutic INR: (4) CAD (coronary artery disease): (5) Paroxysmal atrial flutter: (6) T2DM (type 2 diabetes mellitus): (7) HTN (hypertension): (8) HLD (hyperlipidemia): (9) Prolonged QT interval: History of Present Illness Attending Physician: Segundo Kong MD History of Present Illness Patient is a 61-year-old male with past medical history significant for CAD s/p stent, atrial flutter s/p cardioversion (on Coumadin), HTN, HLD, DM type II. The patient recently became ill with what he believes to be COVID-19 infection 3 weeks ago for which she is self isolated. At that time patient's did test positive for COVID-19, however the patient did not seek testing. Patient noticed that he began to have diarrhea with what he described as bright red streaks of blood in the stool which started a week ago. Patient states that his made him come to the ER when he began to have dizziness when standing up which started a few days ago and continually worsened. On arrival to the emergency department patient was noted to be hypotensive with systolic blood pressure in the 70s. Lab work revealed that he had a supratherapeutic INR of 7.0, heme positive stools, and was anemic with hemoglobin of eight with prior baseline of 13. Patient continued to pass melena in the ED. Vitamin K and Kcentra were administered and he received IV bolus and 1 unit RBCs for which hemodynamics improved. Patient now being transferred to the ICU for further monitoring. On exam patient was alert and oriented and appears comfortable at rest. He is maintaining oxygen saturation on room air and blood pressure soft with systolics in the 90s but maps greater than 65. Patient currently denies dizziness or syncopal episodes but does state that when he stands or ambulates he becomes significantly dizzy. He denies fainting or trauma during these episodes. He denies fevers, sore throat, cough, chest pain, palpitations, shortness of breath, abdominal pain, nausea or vomiting. Patient has continued to pass multiple dark melena stools. Allergies Allergy/AdvReac Type Severity Reaction Status Date / Time gabapentin Allergy Mild Emotional Verified 03/22/21 23:54 changes (makes cry) Sulfa (Sulfonamide Allergy Mild Rash Verified 03/22/21 23:54 Antibiotics) cyclobenzaprine Allergy Unknown ON [facility] MED Verified 03/22/21 23:57 LIST Home Medications Medication Instructions Recorded Confirmed Type cholecalciferol (vitamin D3) 25 1,000 unit PO QAM 07/20/18 03/23/21 History mcg (1,000 unit) capsule (Vitamin D3) metformin 1,000 mg tablet 1,000 mg PO BID 07/20/18 03/23/21 History multivitamin 1 tab PO QAM 07/20/18 03/23/21 History zinc 50 mg tablet 50 mg PO QAM 07/20/18 03/23/21 History warfarin 5 mg tablet (Jantoven) See Rx Instructions .ROUTE .COMPLEX 04/23/19 03/23/21 History atorvastatin 40 mg tablet (Lipitor) 40 mg PO QPM 02/29/20 03/23/21 History metoprolol succinate 25 mg 25 mg PO QAM 02/29/20 03/23/21 History tablet,extended release 24 hr sotalol 80 mg tablet 80 mg PO BID 02/29/20 03/23/21 History dulaglutide 1.5 mg/0.5 mL 1.5 mg SUBCUT WK 09/19/20 03/23/21 History subcutaneous pen injector (Trulicity) albuterol sulfate 90 mcg/actuation 1 puff INHALATION DIRECTED PRN 03/22/21 03/23/21 History aerosol inhaler furosemide 40 mg tablet 40 mg PO DAILY 03/22/21 03/22/21 History lisinopril 10 mg tablet 10 mg PO DAILY 03/22/21 03/22/21 History potassium chloride 10 mEq 10 meq PO DAILY 03/22/21 03/23/21 History tablet,extended release(part/cryst) vitamin E 100 unit capsule 100 unit PO DAILY 03/22/21 03/22/21 History Patient History Medical History CAD (coronary artery disease) RCA stent (2003), Left circumflex stent (2004) Diabetes mellitus, type 2 NIDDM (oral + injectable) HLD (hyperlipidemia) HTN (hypertension) Obesity Paroxysmal atrial flutter s/p cardioversion (02/2020) Restless leg syndrome Secondary polycythemia Surgical History H/O eye surgery Plugs implanted R/L eye for dry eye syndrome History of cardioversion x2 History of colonoscopy History of heart artery stent RCA (2003), Left circumflex (2004) History of tonsillectomy History of tooth extraction Family History Father Coronary heart disease Hypertension Mother Family history of diabetes mellitus Coronary heart disease Brother Diabetes Family history of diabetes mellitus Brother Family history of diabetes mellitus Other No family history of adverse response to anesthesia No known problems Social History Smoking Status: Former smoker Second Hand Exposure: Yes ( A CHILD); Hx Alcohol Use: No Hx Substance Use: No Preferred Language: Nepali Communication Ability: Effective 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 Beliefs That Will Affect Care: None marital status: Current Living Situation: Spouse current occupational status: employed Feels Safe at Home: Yes Assistive Devices: Cane, Denture - Upper, Denture - Lower and Glasses Review of Systems Review of Systems: All systems reviewed & are unremarkable except as noted in HPI & below Physical Exam Constitutional: WD/WN, vitals as above cooperative and comfortable Eyes: PERRL, conjunctivae normal, anicteric sclerae ENMT: external ear and nose normal, oropharynx normal Neck: trachea midline, no thyromegaly Respiratory: normal respiratory effort, lungs clear to auscultation Cardiovascular: Rate/Rhythm: regular rate and regular rhythm Heart Sounds: normal S1, normal S2 and + murmur Extremities: normal capillary refill; no edema Gastrointestinal (Abdomen): normal bowel sounds, soft, nontender, no hepatosplenomegaly Musculoskeletal: no cyanosis or clubbing, extremities motor strength 5/5 Skin: no rashes, warm and dry Neurologic: PERRL, EOMI, accommodation nl, no face palsy, no dysarthria Psychiatric: A+Ox3, euthymic affect Results & Data Results & Data ([facility]) Vital Signs (Past 12 Hours) Vital Signs Temp Pulse Pulse Resp BP BP Pulse Ox 03/23/21 05:20 91 H 19 96 03/23/21 05:15 91 H 18 95 03/23/21 05:10 90 19 93 03/23/21 05:05 91 H 19 93 03/23/21 05:00 90 20 94 03/23/21 04:57 36.6 C 03/23/21 04:55 90 20 98 03/23/21 04:50 89 15 99 03/23/21 04:45 89 16 98 03/23/21 04:40 88 25 H 96 03/23/21 04:36 36.6 C 89 17 93/56 L 98 03/23/21 04:35 88 19 96 03/23/21 04:30 88 17 96 03/23/21 04:25 90 14 96 03/23/21 04:20 90 20 96 03/23/21 04:15 92 H 20 100 03/23/21 04:10 94 H 14 95 03/23/21 04:05 92 H 15 95 03/23/21 04:00 90 11 L 98 03/23/21 03:40 90 97/78 L 97 03/23/21 03:38 36.7 C 89 17 97/78 L 93 03/23/21 03:30 90 24 100 03/23/21 03:26 92 H 20 112/61 97 03/23/21 03:25 92 H 24 99 03/23/21 03:20 90 23 99 03/23/21 03:15 92 H 17 97/58 L 95 03/23/21 03:10 90 17 99 03/23/21 03:05 90 16 98 03/23/21 03:00 90 25 H 96 03/23/21 02:50 94 H 20 122/83 98 03/23/21 02:36 91 H 18 102/62 97 03/23/21 02:26 36.5 C 88 23 102/58 L 100 03/23/21 02:06 36.5 C 90 23 80/53 L 95 03/23/21 01:51 36.5 C 89 23 110/67 95 03/23/21 01:33 36.9 C 93 H 18 81/53 L 96 03/23/21 01:00 92 H 22 91/51 L 97 03/23/21 00:55 93 H 23 103/63 96 03/23/21 00:41 90 22 78/47 L 95 03/23/21 00:33 91 H 99 03/23/21 00:30 89 19 90/61 L 93 03/23/21 00:00 89 20 93 03/22/21 23:55 88 21 98/50 L 94 03/22/21 23:50 89 13 98/55 L 96 03/22/21 23:45 91 H 18 03/22/21 23:44 82/57 L 03/22/21 23:40 91 H 17 03/22/21 23:38 90 19 03/22/21 23:33 87/53 L 03/22/21 23:23 36.4 C L 108 H 22 73/53 L 97 Coding Level of Care Code 45976 Inpt Consult Level 5 Diagnoses Hypotension I95.9 Acute GI bleeding K92.2 Supratherapeutic INR R79.1 CAD (coronary artery disease) I25.10 Paroxysmal atrial flutter I48.92 T2DM (type 2 diabetes mellitus) E11.9 HTN (hypertension) I10 Hypertension type: essential hypertension HLD (hyperlipidemia) E78.5 Prolonged QT interval R94.31 (1) HTN (hypertension) Hypertension type: essential hypertension Qualified Code(s): I10 - Essential (primary) hypertension
[2021-03-23] MEDS: MULTIVITAMIN TAB PO SCH (07:49)
--- NOTE | 2021-03-23 08:01 | XRay Report ---
SINGLE VIEW CHEST CLINICAL HISTORY: GI bleeding. FINDINGS: An AP, portable, upright chest radiograph is compared to chest x-ray and chest CT dated 09/30. The heart is enlarged. The pulmonary vasculature is noncongested. Chronic interstitial thicke nicho similar to previous. Scarring/atelectasis is noted at the lung bases. The lungs and pleural spac es are otherwise clear. No pneumothorax is seen. The skeletal structures are osteopenic. The bony tho rax is grossly intact. IMPRESSION: Cardiomegaly with no active disease in the chest. ACT 112: Negative or not required by law. Electronically signed by: Clifford Brizuela M.D. 03/23/2021 8:00 AM
[2021-03-23 08:09] LABS: Hematocrit (blood only) 27.8 % (42-52); Hemoglobin 9.3 g/dL (14.0-18.0); Mean Corpuscular Hemoglobin 30.6 pg (25-34); Mean Corpuscular Hgb Conc 33.5 g/dL (32-36); Mean Corpuscular Volume 91.4 fL (80-100); Mean Platelet Volume 9.4 fL (7.4-10.4); Platelet Count 329 K/uL (130-400); RDW Coefficient of Variation 15.6 % (11.5-14.5); RDW Standard Deviation 52.1 fL (36.4-46.3); Red Blood Count 3.04 M/uL (4.7-6.1)
[2021-03-23 08:21] LABS: Partial Thromboplastin Ratio 0.8; Partial Thromboplastin Time 20.9 Seconds (21.0-31.0); Prothrombin Time 10.1 Seconds (9.0-12.0)
[2021-03-23 08:57] LABS: BUN Creatinine Ratio 10.1 (10-20); Calcium 7.3 mg/dl (8.5-10.1); Creatinine Clr Calc Pharmacy 78.2 ml/min; Est GFR (African American) 64.5 ml/min; Est GFR (Non-African American) 55.7 ml/min; Potassium 3.6 mmol/L (3.5-5.1)
[2021-03-23] MEDS: INSULIN GLARGINE SOLOSTAR 100 UNITS/ML 3 ML PEN SC SCH (09:04)
[2021-03-23 09:07] LABS: Fibrinogen 304 mg/dl (184-400); Prothrombin Time 10.1 Seconds (9.0-12.0)
[2021-03-23 09:12] LABS: Basophils # (auto) 0.04 K/uL (0-0.2); Basophils % (auto) 0.3 %; Eosinophils # (auto) 0.23 K/uL (0-0.5); Eosinophils % (auto) 1.7 %; Immature Granulocytes # (auto) 0.06 K/uL (0.00-0.02); Immature Granulocytes % (auto) 0.5 %; Lymphocytes # (auto) 2.05 K/uL (1.2-3.4); Lymphocytes % (auto) 15.4 %; Monocytes # (auto) 1.31 K/uL (0.11-0.59); Monocytes % (auto) 9.8 %; Neutrophils # (auto) 9.61 K/uL (1.4-6.5); Neutrophils % (auto) 72.3 %
[2021-03-23] MEDS ORDERED: POTASSIUM CHLORIDE 40 MEQ in SODIUM CHLORIDE 0.9% 1000ML 1,000 ML IV SCH ×2 (09:15→12:40)
--- NOTE | 2021-03-23 09:36 | Communication Note ---
Date of Service: March 23, 2021 Status post 1 unit packed red blood cells, Coumadin reversed, systemic anticoagulation for atrial fibrillation Trend H&H every 6 hours today. Once clinically dehydrated still has lactic acidosis add thiamine 100 mg daily continue with additional fluids at this time Outside timeline window for active COVID-19 treatment continue with symptomatic management. Follow-up GI consult Patient was discussed on multidisciplinary rounds I have personally spent 25 minutes of critical care time in the direct management of this patient. This is a life/limb threatening event. This includes time spent evaluating patient, direct bedside care, chart review, placing orders, interpretation of diagnostic studies, discussion with consultants, patient, and/or family members regarding treatment decisions, as well as other required patient management activities. This time is exclusive of all separately billable procedures, and teaching time and separate from and in addition to any other critical care service time. Coding Level of Care Code Critical Care galo addt'l 30 min
[2021-03-23 09:39] LABS: Estimated Average Glucose 151 mg/dl; Hemoglobin A1C 6.9 % (4.5-5.6)
--- NOTE | 2021-03-23 09:53 | Cardiology Consultation ---
Date of Consultation March 23, 2021 Assessment & Plan (1) Acute GI bleeding: (2) Supratherapeutic INR: (3) Atrial flutter: (4) CAD (coronary artery disease): (5) COVID: The patient's prolonged illness and diarrhea is most likely the result of a Covid infection. His GI bleeding was from a supratherapeutic INR which was corrected and his hematochezia has resolved. From a cardiac standpoint he is currently stable. I would recommend no additional cardiac testing or treatment at this time except when his blood pressure stabilizes he is restarted on his home cardiac medications except for the warfarin. History of Present Illness Attending Physician: Hattie Pardo, History of Present Illness This is a 61-year-old male patient with a history of ischemic heart disease status post coronary stent along with atrial flutter on chronic anticoagulation. Several weeks ago his developed Covid and tested positive. He also was not feeling well and was not tested but self isolated. Due to self-isolation he missed his routine INR check. He also has been having not only fatigue tiredness and not feeling well but also diarrhea for approximately a week to 10 days. Eventually, his stools turned bloody. He was lightheaded and dizzy and decided to come into the emergency department where he was found to have a supratherapeutic INR and anemia requiring a blood transfusion. He was also hypotensive and admitted to the ICU. After some fluids and a unit of packed cells the patient is doing better. He himself did test positive for Covid. Patient's INR has normalized after treatment and the patient has had no additional bloody stools. Allergies Allergy/AdvReac Type Severity Reaction Status Date / Time gabapentin Allergy Mild Emotional Verified 03/22/21 23:54 changes (makes cry) Sulfa (Sulfonamide Allergy Mild Rash Verified 03/22/21 23:54 Antibiotics) cyclobenzaprine Allergy Unknown ON [facility] Verified 03/22/21 23:57 LIST Home Medications Medication Instructions Recorded Confirmed Type cholecalciferol (vitamin D3) 25 1,000 unit PO QAM 07/20/18 03/23/21 History mcg (1,000 unit) capsule (Vitamin D3) metformin 1,000 mg tablet 1,000 mg PO BID 07/20/18 03/23/21 History multivitamin 1 tab PO QAM 07/20/18 03/23/21 History zinc 50 mg tablet 50 mg PO QAM 07/20/18 03/23/21 History warfarin 5 mg tablet (Jantoven) See Rx Instructions .ROUTE .COMPLEX 04/23/19 History atorvastatin 40 mg tablet (Lipitor) 40 mg PO QPM 02/29/20 03/23/21 History metoprolol succinate 25 mg 25 mg PO QAM 02/29/20 03/23/21 History tablet,extended release 24 hr sotalol 80 mg tablet 80 mg PO BID 02/29/20 03/23/21 History dulaglutide 1.5 mg/0.5 mL 1.5 mg SUBCUT WK 09/19/20 03/23/21 History subcutaneous pen injector (Trulicity) albuterol sulfate 90 mcg/actuation 1 puff INHALATION DIRECTED PRN 03/22/21 03/23/21 History aerosol inhaler furosemide 40 mg tablet 40 mg PO DAILY 03/22/21 03/22/21 History lisinopril 10 mg tablet 10 mg PO DAILY 03/22/21 03/22/21 History potassium chloride 10 mEq 10 meq PO DAILY 03/22/21 03/23/21 History tablet,extended release(part/cryst) vitamin E 100 unit capsule 100 unit PO DAILY 03/22/21 03/22/21 History Patient History Medical History CAD (coronary artery disease) RCA stent (2003), Left circumflex stent (2004) Diabetes mellitus, type 2 NIDDM (oral + injectable) HLD (hyperlipidemia) HTN (hypertension) Obesity Paroxysmal atrial flutter s/p cardioversion (02/2020) Restless leg syndrome Secondary polycythemia Surgical History H/O eye surgery Plugs implanted R/L eye for dry eye syndrome History of cardioversion x2 History of colonoscopy History of heart artery stent RCA (2003), Left circumflex (2004) History of tonsillectomy History of tooth extraction Family History Father Coronary heart disease Hypertension Mother Family history of diabetes mellitus Coronary heart disease Brother Diabetes Family history of diabetes mellitus Brother Family history of diabetes mellitus Other No family history of adverse response to anesthesia No known problems Social History Smoking Status: Former smoker Second Hand Exposure: Yes ( A CHILD); Hx Alcohol Use: No Hx Substance Use: No Preferred Language: Guyanese Communication Ability: Effective Tool Liaison Required: No Beliefs That Will Affect Care: None marital status: Current Living Situation: Spouse current occupational status: employed Feels Safe at Home: Yes Assistive Devices: Cane, Denture - Upper, Denture - Lower and Glasses Review of Systems Review of Systems: Review of Systems: See HPI for pertinent positives. All other 10 point review of systems are negative. Physical Exam Physical Exam: General: no acute distress and stated age Head: normocephalic, no masses, lesions, tenderness or abnormalities Eyes: conjunctiva are pink and non-injected, sclera clear Neck: supple, no adenopathy, no bruits, normal jugular venous pulse, no hepatojugular reflux Chest: normal shape and normal respiratory effort Lungs: clear to auscultation and percussion Cardiac Exam: - regular rate & rhythm, no murmurs gallops or rubs - normal S1, normal S2 Pulses: 2(+) throughout Abdomen: abdomen soft, non-tender, no abnormal masses and no hepatosplenomegaly Musculoskeletal: no gait disturbance, no joint inflammation, no deforming arthritis Extremities: no edema and no cyanosis Neuro: grossly normal exam Results & Data ([facility]) Vital Signs (Past 12 Hours) Vital Signs Temp Pulse Pulse Resp BP BP Pulse Ox 03/23/21 06:00 92 H 22 97 03/23/21 05:55 90 20 99 03/23/21 05:50 93 H 22 93 03/23/21 05:45 89 19 96 03/23/21 05:40 91 H 21 95/52 L 97 03/23/21 05:35 92 H 18 98 03/23/21 05:30 91 H 20 95 03/23/21 05:25 92 H 19 97 03/23/21 05:20 91 H 19 96 03/23/21 05:15 91 H 18 95 03/23/21 05:10 90 19 93 03/23/21 05:05 91 H 19 93 03/23/21 05:00 90 20 94 03/23/21 04:57 36.6 C 03/23/21 04:55 90 20 98 03/23/21 04:50 89 15 99 03/23/21 04:45 89 16 98 03/23/21 04:40 88 25 H 96 03/23/21 04:36 36.6 C 89 17 93/56 L 98 03/23/21 04:35 88 19 96 03/23/21 04:30 88 17 96 03/23/21 04:25 90 14 96 03/23/21 04:20 90 20 96 03/23/21 04:15 92 H 20 100 03/23/21 04:10 94 H 14 95 03/23/21 04:05 92 H 15 95 03/23/21 04:00 90 11 L 98 03/23/21 03:40 90 97/78 L 97 03/23/21 03:38 36.7 C 89 17 97/78 L 93 03/23/21 03:30 90 24 100 03/23/21 03:26 92 H 20 112/61 97 03/23/21 03:25 92 H 24 99 03/23/21 03:20 90 23 99 03/23/21 03:15 92 H 17 97/58 L 95 03/23/21 03:10 90 17 99 03/23/21 03:05 90 16 98 03/23/21 03:00 90 25 H 96 03/23/21 02:50 94 H 20 122/83 98 03/23/21 02:36 91 H 18 102/62 97 03/23/21 02:26 36.5 C 88 23 102/58 L 100 03/23/21 02:06 36.5 C 90 23 80/53 L 95 03/23/21 01:51 36.5 C 89 23 110/67 95 03/23/21 01:33 36.9 C 93 H 18 81/53 L 96 03/23/21 01:00 92 H 22 91/51 L 97 03/23/21 00:55 93 H 23 103/63 96 03/23/21 00:41 90 22 78/47 L 95 03/23/21 00:33 91 H 99 03/23/21 00:30 89 19 90/61 L 93 03/23/21 00:00 89 20 93 03/22/21 23:55 88 21 98/50 L 94 03/22/21 23:50 89 13 98/55 L 96 03/22/21 23:45 91 H 18 03/22/21 23:44 82/57 L 03/22/21 23:40 91 H 17 03/22/21 23:38 90 19 03/22/21 23:33 87/53 L 03/22/21 23:23 36.4 C L 108 H 22 73/53 L 97 Laboratory Results Laboratory Results - last 24 hr 03/22/21 03/22/21 03/22/21 23:37 23:37 23:37 WBC 12.34 H RBC 2.86 L Hgb 8.7 L POC Hgb Hct 26.3 L POC Hct MCV 92.0 MCH 30.4 MCHC 33.1 RDW Std Deviation 51.0 H RDW Coeff of Mychal 15.2 H Plt Count 380 MPV 9.6 Immature Gran % (Auto) 0.3 Neut % (Auto) 72.5 Lymph % (Auto) 15.7 Ware % (Auto) 8.4 Eos % (Auto) 2.7 Baso % (Auto) 0.4 Neut # (Auto) 8.94 H Lymph # (Auto) 1.94 Ware # (Auto) 1.04 H Eos # (Auto) 0.33 Baso # (Auto) 0.05 Immature Gran # (Auto) 0.04 H Polychromasia 1+ PT 60.9 H INR 7.0 H* APTT 49.0 H* PTT Ratio 1.9 Fibrinogen POC Sodium Sodium POC Potassium Potassium POC Chloride Chloride Carbon Dioxide POC Total CO2 Anion Gap POC Anion Gap POC BUN BUN Creatinine POC Creatinine Est Cr Clr Drug Dosing Est GFR ( Amer) Est GFR (Non-Af Amer) BUN/Creatinine Ratio Glucose POC Glucose POC Glucose (other) Estimat Average Glucose Hemoglobin A1c Lactate Calcium POC Ioniz Calcium Kiran Ionized Calcium Magnesium Total Bilirubin Direct Bilirubin AST ALT Alkaline Phosphatase Troponin I Total Protein Albumin Lipase TSH Free T4 Urine Color Urine Appearance Urine pH Ur Specific Etoile Urine Protein Urine Glucose (UA) Urine Ketones Urine Blood Urine Nitrite Urine Bilirubin Urine Urobilinogen Ur Leukocyte Esterase Urine WBC (Auto) Urine RBC (Auto) U Hyaline Cast (Auto) U Epithel Cells (Auto) Urine Bacteria (Auto) Ur Renal Epithelial Cell Granular Casts Urine Sperm Nasal Screen MRSA (PCR) Stl C. diff Tox B Gene Ethyl Alcohol mg/dL COVID-19 Eval Order SARS-CoV-2 (PCR) Blood Type A Positive Antibody Screen NEGATIVE Crossmatch See Detail 03/22/21 03/22/21 03/22/21 23:37 23:48 23:52 WBC RBC Hgb POC Hgb 8.5 L Hct POC Hct 25 L MCV MCH MCHC RDW Std Deviation RDW Coeff of Mychal Plt Count MPV Immature Gran % (Auto) Neut % (Auto) Lymph % (Auto) Ware % (Auto) Eos % (Auto) Baso % (Auto) Neut # (Auto) Lymph # (Auto) Ware # (Auto) Eos # (Auto) Baso # (Auto) Immature Gran # (Auto) Polychromasia PT INR APTT PTT Ratio Fibrinogen POC Sodium 133 L Sodium 136 POC Potassium 3.2 L Potassium 3.1 L POC Chloride 100 L Chloride 103 Carbon Dioxide 20 L POC Total CO2 18 L Anion Gap 12.0 H POC Anion Gap 19.0 POC BUN 14 BUN 14 Creatinine 1.72 H POC Creatinine 1.6 H Est Cr Clr Drug Dosing Not Reportable Est GFR ( Amer) 49.0 Est GFR (Non-Af Amer) 42.3 BUN/Creatinine Ratio 8.2 L Glucose 169 H POC Glucose POC Glucose (other) 173 H Estimat Average Glucose Hemoglobin A1c Lactate Calcium 7.2 L POC Ioniz Calcium Kiran 0.93 L Ionized Calcium Magnesium 1.8 Total Bilirubin 0.3 Direct Bilirubin < 0.1 AST 13 L ALT 22 Alkaline Phosphatase 112 Troponin I < 0.015 Total Protein 5.4 L Albumin 1.7 L Lipase 101 TSH 5.730 H Free T4 0.97 Urine Color Urine Appearance Urine pH Ur Specific Etoile Urine Protein Urine Glucose (UA) Urine Ketones Urine Blood Urine Nitrite Urine Bilirubin Urine Urobilinogen Ur Leukocyte Esterase Urine WBC (Auto) Urine RBC (Auto) U Hyaline Cast (Auto) U Epithel Cells (Auto) Urine Bacteria (Auto) Ur Renal Epithelial Cell Granular Casts Urine Sperm Nasal Screen MRSA (PCR) Stl C. diff Tox B Gene Ethyl Alcohol mg/dL COVID-19 Eval Order Covid19 at [facility] SARS-CoV-2 (PCR) Blood Type Antibody Screen Crossmatch 03/22/21 03/23/21 03/23/21 23:52 00:54 02:30 WBC RBC Hgb POC Hgb Hct POC Hct MCV MCH MCHC RDW Std Deviation RDW Coeff of Mychal Plt Count MPV Immature Gran % (Auto) Neut % (Auto) Lymph % (Auto) Ware % (Auto) Eos % (Auto) Baso % (Auto) Neut # (Auto) Lymph # (Auto) Ware # (Auto) Eos # (Auto) Baso # (Auto) Immature Gran # (Auto) Polychromasia PT INR APTT PTT Ratio Fibrinogen POC Sodium Sodium POC Potassium Potassium POC Chloride Chloride Carbon Dioxide POC Total CO2 Anion Gap POC Anion Gap POC BUN BUN Creatinine POC Creatinine Est Cr Clr Drug Dosing Est GFR ( Amer) Est GFR (Non-Af Amer) BUN/Creatinine Ratio Glucose POC Glucose POC Glucose (other) Estimat Average Glucose Hemoglobin A1c Lactate Calcium POC Ioniz Calcium Kiran Ionized Calcium Magnesium Total Bilirubin Direct Bilirubin AST ALT Alkaline Phosphatase Troponin I Total Protein Albumin Lipase TSH Free T4 Urine Color Dark Yellow Urine Appearance Clear Urine pH 5.5 Ur Specific Etoile 1.019 Urine Protein 1+ H Urine Glucose (UA) Negative Urine Ketones Trace H Urine Blood Negative Urine Nitrite Negative Urine Bilirubin Negative Urine Urobilinogen Negative Ur Leukocyte Esterase Negative Urine WBC (Auto) 5-10 H Urine RBC (Auto) 0-4 U Hyaline Cast (Auto) >30 H U Epithel Cells (Auto) >30 H Urine Bacteria (Auto) 1+ H Ur Renal Epithelial Cell Not Reportable Granular Casts 1-5 H Urine Sperm Present A Nasal Screen MRSA (PCR) Stl C. diff Tox B Gene Negative Cdiff Gene Ethyl Alcohol mg/dL COVID-19 Eval Order SARS-CoV-2 (PCR) POSITIVE A* Blood Type Antibody Screen Crossmatch 03/23/21 03/23/21 03/23/21 04:00 04:48 07:22 WBC RBC Hgb POC Hgb Hct POC Hct MCV MCH MCHC RDW Std Deviation RDW Coeff of Mychal Plt Count MPV Immature Gran % (Auto) Neut % (Auto) Lymph % (Auto) Ware % (Auto) Eos % (Auto) Baso % (Auto) Neut # (Auto) Lymph # (Auto) Ware # (Auto) Eos # (Auto) Baso # (Auto) Immature Gran # (Auto) Polychromasia PT INR APTT PTT Ratio Fibrinogen POC Sodium Sodium POC Potassium Potassium POC Chloride Chloride Carbon Dioxide POC Total CO2 Anion Gap POC Anion Gap POC BUN BUN Creatinine POC Creatinine Est Cr Clr Drug Dosing Est GFR ( Amer) Est GFR (Non-Af Amer) BUN/Creatinine Ratio Glucose POC Glucose 115 H POC Glucose (other) Estimat Average Glucose 151 Hemoglobin A1c 6.9 H Lactate Calcium POC Ioniz Calcium Kiran Ionized Calcium Magnesium Total Bilirubin Direct Bilirubin AST ALT Alkaline Phosphatase Troponin I Total Protein Albumin Lipase TSH Free T4 Urine Color Urine Appearance Urine pH Ur Specific Etoile Urine Protein Urine Glucose (UA) Urine Ketones Urine Blood Urine Nitrite Urine Bilirubin Urine Urobilinogen Ur Leukocyte Esterase Urine WBC (Auto) Urine RBC (Auto) U Hyaline Cast (Auto) U Epithel Cells (Auto) Urine Bacteria (Auto) Ur Renal Epithelial Cell Granular Casts Urine Sperm Nasal Screen MRSA (PCR) Negative Stl C. diff Tox B Gene Ethyl Alcohol mg/dL COVID-19 Eval Order SARS-CoV-2 (PCR) Blood Type Antibody Screen Crossmatch 03/23/21 03/23/21 03/23/21 07:56 07:56 07:56 WBC RBC Hgb POC Hgb Hct POC Hct MCV MCH MCHC RDW Std Deviation RDW Coeff of Mychal Plt Count MPV Immature Gran % (Auto) Neut % (Auto) Lymph % (Auto) Ware % (Auto) Eos % (Auto) Baso % (Auto) Neut # (Auto) Lymph # (Auto) Ware # (Auto) Eos # (Auto) Baso # (Auto) Immature Gran # (Auto) Polychromasia PT 10.1 INR 1.0 APTT 20.9 L PTT Ratio 0.8 Fibrinogen POC Sodium Sodium POC Potassium Potassium POC Chloride Chloride Carbon Dioxide POC Total CO2 Anion Gap POC Anion Gap POC BUN BUN Creatinine POC Creatinine Est Cr Clr Drug Dosing Est GFR ( Amer) Est GFR (Non-Af Amer) BUN/Creatinine Ratio Glucose POC Glucose POC Glucose (other) Estimat Average Glucose Hemoglobin A1c Lactate 2.5 H* Calcium POC Ioniz Calcium Kiran Ionized Calcium Magnesium Total Bilirubin Direct Bilirubin AST ALT Alkaline Phosphatase Troponin I Total Protein Albumin Lipase TSH Free T4 Urine Color Urine Appearance Urine pH Ur Specific Etoile Urine Protein Urine Glucose (UA) Urine Ketones Urine Blood Urine Nitrite Urine Bilirubin Urine Urobilinogen Ur Leukocyte Esterase Urine WBC (Auto) Urine RBC (Auto) U Hyaline Cast (Auto) U Epithel Cells (Auto) Urine Bacteria (Auto) Ur Renal Epithelial Cell Granular Casts Urine Sperm Nasal Screen MRSA (PCR) Stl C. diff Tox B Gene Ethyl Alcohol mg/dL < 3.0 COVID-19 Eval Order SARS-CoV-2 (PCR) Blood Type Antibody Screen Crossmatch 03/23/21 03/23/21 03/23/21 07:56 07:56 07:56 WBC 13.30 H RBC 3.04 L Hgb 9.3 L POC Hgb Hct 27.8 L POC Hct MCV 91.4 MCH 30.6 MCHC 33.5 RDW Std Deviation 52.1 H RDW Coeff of Mychal 15.6 H Plt Count 329 MPV 9.4 Immature Gran % (Auto) 0.5 Neut % (Auto) 72.3 Lymph % (Auto) 15.4 Ware % (Auto) 9.8 Eos % (Auto) 1.7 Baso % (Auto) 0.3 Neut # (Auto) 9.61 H Lymph # (Auto) 2.05 Ware # (Auto) 1.31 H Eos # (Auto) 0.23 Baso # (Auto) 0.04 Immature Gran # (Auto) 0.06 H Polychromasia PT 10.1 INR 1.0 APTT PTT Ratio Fibrinogen 304 POC Sodium Sodium 138 POC Potassium Potassium 3.6 D POC Chloride Chloride 108 H Carbon Dioxide 21 POC Total CO2 Anion Gap 8.0 POC Anion Gap POC BUN BUN 14 Creatinine 1.37 D POC Creatinine Est Cr Clr Drug Dosing 78.2 Est GFR ( Amer) 64.5 Est GFR (Non-Af Amer) 55.7 BUN/Creatinine Ratio 10.1 Glucose 117 H POC Glucose POC Glucose (other) Estimat Average Glucose Hemoglobin A1c Lactate Calcium 7.3 L POC Ioniz Calcium Kiran Ionized Calcium Magnesium Total Bilirubin Direct Bilirubin AST ALT Alkaline Phosphatase Troponin I Total Protein Albumin Lipase TSH Free T4 Urine Color Urine Appearance Urine pH Ur Specific Etoile Urine Protein Urine Glucose (UA) Urine Ketones Urine Blood Urine Nitrite Urine Bilirubin Urine Urobilinogen Ur Leukocyte Esterase Urine WBC (Auto) Urine RBC (Auto) U Hyaline Cast (Auto) U Epithel Cells (Auto) Urine Bacteria (Auto) Ur Renal Epithelial Cell Granular Casts Urine Sperm Nasal Screen MRSA (PCR) Stl C. diff Tox B Gene Ethyl Alcohol mg/dL COVID-19 Eval Order SARS-CoV-2 (PCR) Blood Type Antibody Screen Crossmatch 03/23/21 07:56 WBC RBC Hgb POC Hgb Hct POC Hct MCV MCH MCHC RDW Std Deviation RDW Coeff of Mychal Plt Count MPV Immature Gran % (Auto) Neut % (Auto) Lymph % (Auto) Ware % (Auto) Eos % (Auto) Baso % (Auto) Neut # (Auto) Lymph # (Auto) Ware # (Auto) Eos # (Auto) Baso # (Auto) Immature Gran # (Auto) Polychromasia PT INR APTT PTT Ratio Fibrinogen POC Sodium Sodium POC Potassium Potassium POC Chloride Chloride Carbon Dioxide POC Total CO2 Anion Gap POC Anion Gap POC BUN BUN Creatinine POC Creatinine Est Cr Clr Drug Dosing Est GFR ( Amer) Est GFR (Non-Af Amer) BUN/Creatinine Ratio Glucose POC Glucose POC Glucose (other) Estimat Average Glucose Hemoglobin A1c Lactate Calcium POC Ioniz Calcium Kiran Ionized Calcium 0.98 L Magnesium Total Bilirubin Direct Bilirubin AST ALT Alkaline Phosphatase Troponin I Total Protein Albumin Lipase TSH Free T4 Urine Color Urine Appearance Urine pH Ur Specific Etoile Urine Protein Urine Glucose (UA) Urine Ketones Urine Blood Urine Nitrite Urine Bilirubin Urine Urobilinogen Ur Leukocyte Esterase Urine WBC (Auto) Urine RBC (Auto) U Hyaline Cast (Auto) U Epithel Cells (Auto) Urine Bacteria (Auto) Ur Renal Epithelial Cell Granular Casts Urine Sperm Nasal Screen MRSA (PCR) Stl C. diff Tox B Gene Ethyl Alcohol mg/dL COVID-19 Eval Order SARS-CoV-2 (PCR) Blood Type Antibody Screen Crossmatch Medications Administered Current Inpatient Medications Acetaminophen (Acetaminophen 325 Mg Tab) 650 mg PO Q6H PRN PRN Reason: Fever/pain Stop: 04/22/21 04:30 Atorvastatin Calcium (Atorvastatin 40 Mg Tab) 40 mg PO QPM BRITTANI Stop: 04/22/21 20:59 Dextrose (Dextrose 50% 50 Ml Syringe) 25 - 50 ml IV UD PRN; Protocol PRN Reason: Hypoglycemia Protocol Stop: 04/22/21 04:30 Glucagon (Glucagon For Inj 1 Mg Vial) 1 mg SQ UD PRN; Protocol PRN Reason: Hypoglycemia Protocol Stop: 04/22/21 04:30 Glucose (Glucose 10 Tabs/Tube) 4 - 8 tabs PO UD PRN; Protocol PRN Reason: Hypoglycemia Protocol Stop: 04/22/21 04:30 Glucose (Glucose 40% Gel 15 Gm Tube) 15 - 30 gm PO UD PRN; Protocol PRN Reason: Hypoglycemia Protocol Stop: 04/22/21 04:30 Potassium Chloride 40 meq/ (Sodium Chloride) 1,020 mls @ 125 mls/hr IV .Q8H10M ONE Stop: 03/23/21 12:39 Last Admin: 03/23/21 04:33 Dose: 100 mls/hr Documented by: Promethazine HCl 12.5 mg/ (Sodium Chloride) 50.5 mls @ 202 mls/hr IV Q6H PRN PRN Reason: Nausea And Vomiting Stop: 04/22/21 04:30 Potassium Chloride 40 meq/ (Sodium Chloride) 1,020 mls @ 125 mls/hr IV .Q8H10M BRITTANI Stop: 03/23/21 20:49 Thiamine HCl 100 mg/ Syringe 10 mls @ 2 mls/min IV QAM [facility] Stop: 04/22/21 09:59 Insulin Aspart (Insulin Aspart 100 Units/Ml 3 Ml Pen) 0 units SC ACHS [facility] Stop: 04/22/21 04:30 Last Admin: 03/23/21 09:01 Dose: Not Given Documented by: Insulin Glargine (Insulin Glargine Solostar 100 Units/Ml 3 Ml Pen) 5 units SC DAILY BRITTANI Stop: 04/22/21 08:59 Last Admin: 03/23/21 09:04 Dose: 5 units Documented by: Miscellaneous (Icu Protocol For Hyperglycemia) 1 ea N/A PRN PRN; Protocol PRN Reason: Hyperglycemia Protocol Stop: 03/25/21 04:30 Miscellaneous (Carbohydrates For Hypoglycemia ) 15 - 30 gm PO UD PRN PRN Reason: Hypoglycemia Protocol Stop: 04/22/21 04:30 Multivitamins (Multivitamin Tab) 1 tab PO QAM [facility] Stop: 04/22/21 08:59 Last Admin: 03/23/21 07:49 Dose: Not Given Documented by: Oxycodone HCl (Oxycodone Hcl Ir 5 Mg Tab (Immediate Release)) 5 mg PO Q4H PRN PRN Reason: Pain Stop: 04/06/21 04:30
--- NOTE | 2021-03-23 10:34 | Electrocardiogram Report ---
Test Reason : Blood Pressure : / mmHG Vent. 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 lead placement vs. LVH Abnormal ECG When compared with ECG of 09-OCT-2020 00:39, No significant change Confirmed by Eliceo Sellers ([id number]) on 03/23/2021 10:34:48 AM Referred By: Cristino Levine Confirmed By:Eliceo Sellers
--- NOTE | 2021-03-23 10:59 | Electrocardiogram Report ---
Test Reason : Blood Pressure : / mmHG Vent. 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 lead placement vs. LVH Abnormal ECG When compared with ECG of 22-MAR-2021 23:52, No significant change Confirmed by Eliceo Sellers ([id number]) on 03/23/2021 10:58:47 AM Referred By: Cristino Levine Confirmed By:Eliceo Sellers
[2021-03-23] MEDS: THIAMINE HCL 100 MG in SYRINGE 9 ML IV SCH (11:11)
--- NOTE | 2021-03-23 11:22 | Gastrointestinal Consultation ---
Date of Consultation March 23, 2021 Assessment & Plan (1) Acute GI bleeding: (2) Supratherapeutic INR: (3) COVID: This is a 61 y/o male with multiple co-morbids admitted with dizziness, hypotension, report of diarrhea/hematochezia at home, COVID infection, anemia, supratherapeutic INR. INR now normalized and HGB improved after Vit K, Kcentra and pRBC transfusion. Had 2 episodes of hematochezia overnight. Currently abd is soft, BP is low-normal not requiring pressors. Etiology of hematochezia may be multifactorial with history of COVID/diarrhea + INR of 7. He had internal hemorrhoids on previous colonoscopy. - Agree w/ holding Coumadin - Trend H&H, transfuse PRN - Appreciate primary team mgmt/supportive care for co-morbidities - When acute illness resolves he may benefit from colonoscopy to f/u on hematochezia and ensure no sinister pathology. Thank you for allowing us to participate in the care of this patient. Please call with any acute changes, questions or concerns. Please see addendum below with additional recommendation from my supervising physician. Supervising Physician Co-Signing Physician Notes I performed a history and physical examination of the patient today, including specifically on physical exam - soft abdomen. I have discussed the patient's management with the advanced practitioner. Please refer to the nurse practitioner's note for the documented findings and plan of care. 61 yrs old male patient presented to the hospital with rectal bleeding, found to have COVID infection and supratherapeutic INR. This was reversed and now his INR normalized. His H/H had also stabilized with no drop. He is feeling much better. BUN normal. Hemodynamically stable for now. Colonoscopy in 2013 showed hemorrhoids. Seems like LGI bleeding and likely precipitated by high INR in the setting of some mucosal injury which is seen in COVID infection. Other etiologies remains possible however doubt this is an UGI bleeding given quick stability after resuscitation. Recommend: Monitor H/H for now and monitor for bleeding. Continue holding AC for now till bleeding resolves then will decide based on clinical status. If bleeding recurs or H/H drops then will start bowel prep and plan for colonoscopy over the weekend. Otherwise if remains stable then can be done electively. History of Present Illness Reason for Consultation: GIB Requesting Physician: Dr. Segundo Kong Attending Physician: Hattie Pardo, History of Present Illness This is a 61-year-old male patient with a PMHx CAAD s/p stent, atrial flutter on chronic anticoagulation with Coumadin, HTN, HLD and others. Several weeks ago his developed Covid and tested positive. Pt did not feel well with fatigue and diarrhea and self-isolated without getting tested. Missed INR check. He had diarrhea for several days. Eventually, his stools turned bloody. He was lightheaded and dizzy and decided to come into the emergency department where he was found to have a supratherapeutic INR of 7 and anemia requiring a blood transfusion, KCentra and Vit K, IVF. He was also hypotensive and admitted to the ICU. He tested positive for Covid. Patient's INR has normalized after treatment and HGB improved after blood products. This AM per his nurse he had andres blood mixed with stool x 1. No black or tarry stool. BP is low-normal but improved from admission. Pt states approx 1 month ago he had rectal discomfort and a lump which believes was a hemorrhoid; this bled several times a day for several days. Currently denies abd pain, n/v, hematemesis, heartburn, dysphagia, melena, syncope, dizziness at present. Regarding COVID he's had a decreased appetite, but no SOB, CP, fever, chills, cough. Pt denies fam hx GI malignancy including colon CA. Colonoscopy [address] Nava: The entire examined colon is normal except for large hemorrhoids Allergies Allergy/AdvReac Type Severity Reaction Status Date / Time gabapentin Allergy Mild Emotional Verified 03/22/21 23:54 changes (makes cry) Sulfa (Sulfonamide Allergy Mild Rash Verified 03/22/21 23:54 Antibiotics) cyclobenzaprine Allergy Unknown ON [facility] MED Verified 03/22/21 23:57 LIST Home Medications Medication Instructions Recorded Confirmed Type cholecalciferol (vitamin D3) 25 1,000 unit PO QAM 07/20/18 03/23/21 History mcg (1,000 unit) capsule (Vitamin D3) metformin 1,000 mg tablet 1,000 mg PO BID 07/20/18 03/23/21 History multivitamin 1 tab PO QAM 07/20/18 03/23/21 History zinc 50 mg tablet 50 mg PO QAM 07/20/18 03/23/21 History warfarin 5 mg tablet (Jantoven) See Rx Instructions .ROUTE .COMPLEX 04/23/19 03/23/21 History atorvastatin 40 mg tablet (Lipitor) 40 mg PO QPM 02/29/20 03/23/21 History metoprolol succinate 25 mg 25 mg PO QAM 02/29/20 03/23/21 History tablet,extended release 24 hr sotalol 80 mg tablet 80 mg PO BID 02/29/20 03/23/21 History dulaglutide 1.5 mg/0.5 mL 1.5 mg SUBCUT WK 09/19/20 03/23/21 History subcutaneous pen injector (Trulicity) albuterol sulfate 90 mcg/actuation 1 puff INHALATION DIRECTED PRN 03/22/21 03/23/21 History aerosol inhaler furosemide 40 mg tablet 40 mg PO DAILY 03/22/21 03/22/21 History lisinopril 10 mg tablet 10 mg PO DAILY 03/22/21 03/22/21 History potassium chloride 10 mEq 10 meq PO DAILY 03/22/21 03/23/21 History tablet,extended release(part/cryst) vitamin E 100 unit capsule 100 unit PO DAILY 03/22/21 03/22/21 History Patient History Medical History CAD (coronary artery disease) RCA stent (2003), Left circumflex stent (2004) Diabetes mellitus, type 2 NIDDM (oral + injectable) HLD (hyperlipidemia) HTN (hypertension) Obesity Paroxysmal atrial flutter s/p cardioversion (02/2020) Restless leg syndrome Secondary polycythemia Surgical History H/O eye surgery Plugs implanted R/L eye for dry eye syndrome History of cardioversion x2 History of colonoscopy History of heart artery stent RCA (2003), Left circumflex (2004) History of tonsillectomy History of tooth extraction Family History Father Coronary heart disease Hypertension Mother Family history of diabetes mellitus Coronary heart disease Brother Diabetes Family history of diabetes mellitus Brother Family history of diabetes mellitus Other No family history of adverse response to anesthesia No known problems Social History Smoking Status: Former smoker Second Hand Exposure: Yes ( A CHILD); Hx Alcohol Use: No Hx Substance Use: No Preferred Language: Swedish Communication Ability: Effective Operator Specialist Communications Required: No Beliefs That Will Affect Care: None marital status: Current Living Situation: Spouse current occupational status: employed Feels Safe at Home: Yes Assistive Devices: Cane Review of Systems Review of Systems: All systems reviewed & are unremarkable except as noted in Subjective Physical Exam Constitutional: + increased pallor, resting comfortably in bed, NAD Eyes: sclera anicteric Respiratory: normal respiratory effort, lungs clear to auscultation Cardiovascular: RRR, no murmur, no edema Gastrointestinal (Abdomen): normal bowel sounds, soft, nontender, no hepatosplenomegaly Rectal Exam: no hemorrhoids and no rectal tenderness (scant bright red blood per rectum; no obvious masses) Results & Data ([facility]) Vital Signs (Past 12 Hours) Vital Signs Temp Pulse Pulse Resp BP BP Pulse Ox 03/23/21 06:00 92 H 22 97 03/23/21 05:55 90 20 99 03/23/21 05:50 93 H 22 93 03/23/21 05:45 89 19 96 03/23/21 05:40 91 H 21 95/52 L 97 03/23/21 05:35 92 H 18 98 03/23/21 05:30 91 H 20 95 03/23/21 05:25 92 H 19 97 03/23/21 05:20 91 H 19 96 03/23/21 05:15 91 H 18 95 03/23/21 05:10 90 19 93 03/23/21 05:05 91 H 19 93 03/23/21 05:00 90 20 94 03/23/21 04:57 36.6 C 03/23/21 04:55 90 20 98 03/23/21 04:50 89 15 99 03/23/21 04:45 89 16 98 03/23/21 04:40 88 25 H 96 03/23/21 04:36 36.6 C 89 17 93/56 L 98 03/23/21 04:35 88 19 96 03/23/21 04:30 88 17 96 03/23/21 04:25 90 14 96 03/23/21 04:20 90 20 96 03/23/21 04:15 92 H 20 100 03/23/21 04:10 94 H 14 95 03/23/21 04:05 92 H 15 95 03/23/21 04:00 90 11 L 98 03/23/21 03:40 90 97/78 L 97 03/23/21 03:38 36.7 C 89 17 97/78 L 93 03/23/21 03:30 90 24 100 03/23/21 03:26 92 H 20 112/61 97 03/23/21 03:25 92 H 24 99 03/23/21 03:20 90 23 99 03/23/21 03:15 92 H 17 97/58 L 95 03/23/21 03:10 90 17 99 03/23/21 03:05 90 16 98 03/23/21 03:00 90 25 H 96 03/23/21 02:50 94 H 20 122/83 98 03/23/21 02:36 91 H 18 102/62 97 03/23/21 02:26 36.5 C 88 23 102/58 L 100 03/23/21 02:06 36.5 C 90 23 80/53 L 95 03/23/21 01:51 36.5 C 89 23 110/67 95 03/23/21 01:33 36.9 C 93 H 18 81/53 L 96 03/23/21 01:00 92 H 22 91/51 L 97 03/23/21 00:55 93 H 23 103/63 96 03/23/21 00:41 90 22 78/47 L 95 03/23/21 00:33 91 H 99 03/23/21 00:30 89 19 90/61 L 93 03/23/21 00:00 89 20 93 03/22/21 23:55 88 21 98/50 L 94 03/22/21 23:50 89 13 98/55 L 96 03/22/21 23:45 91 H 18 03/22/21 23:44 82/57 L 03/22/21 23:40 91 H 17 03/22/21 23:38 90 19 03/22/21 23:33 87/53 L 03/22/21 23:23 36.4 C L 108 H 22 73/53 L 97 Laboratory Results 03/23/21 03/23/21 03/23/21 Range/Units 07:56 07:56 07:56 WBC (4.8-10.8) K/uL RBC (4.7-6.1) M/uL Hgb (14.0-18.0) g/dL POC Hgb (14.0-18.0) g/dl Hct (42-52) % POC Hct (42-52) % MCV (80-100) fL MCH (25-34) pg MCHC (32-36) g/dL RDW Std Deviation (36.4-46.3) fL RDW Coeff of Mychal (11.5-14.5) % Plt Count (130-400) K/uL MPV (7.4-10.4) fL Immature Gran % (Auto) % Neut % (Auto) % Lymph % (Auto) % Larimer % (Auto) % Eos % (Auto) % Baso % (Auto) % Neut # (Auto) (1.4-6.5) K/uL Lymph # (Auto) (1.2-3.4) K/uL Lar[place] # (Auto) (0.11-0.59) K/uL Eos # (Auto) (0-0.5) K/uL Baso # (Auto) (0-0.2) K/uL Immature Gran # (Auto) (0.00-0.02) K/uL Polychromasia PT 10.1 (9.0-12.0) Seconds INR 1.0 (0.9-1.1) APTT (21.0-31.0) Seconds PTT Ratio Fibrinogen 304 (184-400) mg/dl POC Sodium (135-144) mmol/L Sodium 138 (136-145) mmol/L POC Potassium (3.3-5.0) mmol/L Potassium 3.6 D (3.5-5.1) mmol/L POC Chloride (101-112) mmol/L Chloride 108 H (98-107) mmol/L Carbon Dioxide 21 (21-32) mmol/L POC Total CO2 (24-31) mmol/L Anion Gap 8.0 (3-11) POC Anion Gap (16-25) mmol/L POC BUN (7-18) mg/dl BUN 14 (7-18) mg/dl Creatinine 1.37 D (0.6-1.4) mg/dl POC Creatinine (0.6-1.3) mg/dl Est Cr Clr Drug Dosing 78.2 Est GFR ( Amer) 64.5 ml/min Est GFR (Non-Af Amer) 55.7 ml/min BUN/Creatinine Ratio 10.1 (10-20) Glucose 117 H (70-99) mg/dl POC Glucose (70-99) mg/dl POC Glucose (other) (70-99) mg/dl Estimat Average Glucose mg/dl Hemoglobin A1c (4.5-5.6) % Lactate (0.4-2.0) mmol/L Calcium 7.3 L (8.5-10.1) mg/dl POC Ioniz Calcium Kiran (1.12-1.32) mmol/l Ionized Calcium 0.98 L (1.12-1.32) mmol/L Magnesium (1.8-2.4) mg/dl Total Bilirubin (0.2-1) mg/dl Direct Bilirubin (0-0.2) mg/dl AST (15-37) U/L ALT (12-78) U/L Alkaline Phosphatase (45-117) U/L Troponin I (0-0.045) ng/ml Total Protein (6.4-8.2) gm/dl Albumin (3.4-5.0) gm/dl Lipase (73-393) U/L TSH (0.300-4.500) uIu/ml Free T4 (0.8-1.6) ng/dl Urine Color Urine Appearance (Clear) Urine pH (4.5-7.5) Ur Specific Celina (1.000-1.030) Urine Protein (Negative) Urine Glucose (UA) (Negative) Urine Ketones (Negative) Urine Blood (Negative) Urine Nitrite (Negative) Urine Bilirubin (Negative) Urine Urobilinogen (Negative) Ur Leukocyte Esterase (Negative) Urine WBC (Auto) (0-5) /hpf Urine RBC (Auto) (0-4) /hpf U Hyaline Cast (Auto) (0-5) /lpf U Epithel Cells (Auto) (0-5) /lpf Urine Bacteria (Auto) (Negative) Ur Renal Epithelial Cell Granular Casts (0) /lpf Urine Sperm (None Prsent) Nasal Screen MRSA (PCR) (Negative) Stl C. diff Tox B Gene (Neg) Ethyl Alcohol mg/dL (0-3) mg/dl COVID-19 Eval Order SARS-CoV-2 (PCR) (Negative) Blood Type Antibody Screen Crossmatch 03/23/21 03/23/21 03/23/21 Range/Units 07:56 07:56 07:56 WBC 13.30 H (4.8-10.8) K/uL RBC 3.04 L (4.7-6.1) M/uL Hgb 9.3 L (14.0-18.0) g/dL POC Hgb (14.0-18.0) g/dl Hct 27.8 L (42-52) % POC Hct (42-52) % MCV 91.4 (80-100) fL MCH 30.6 (25-34) pg MCHC 33.5 (32-36) g/dL RDW Std Deviation 52.1 H (36.4-46.3) fL RDW Coeff of Mychal 15.6 H (11.5-14.5) % Plt Count 329 (130-400) K/uL MPV 9.4 (7.4-10.4) fL Immature Gran % (Auto) 0.5 % Neut % (Auto) 72.3 % Lymph % (Auto) 15.4 % Larimer % (Auto) 9.8 % Eos % (Auto) 1.7 % Baso % (Auto) 0.3 % Neut # (Auto) 9.61 H (1.4-6.5) K/uL Lymph # (Auto) 2.05 (1.2-3.4) K/uL [place] # (Auto) 1.31 H (0.11-0.59) K/uL Eos # (Auto) 0.23 (0-0.5) K/uL Baso # (Auto) 0.04 (0-0.2) K/uL Immature Gran # (Auto) 0.06 H (0.00-0.02) K/uL Polychromasia PT 10.1 (9.0-12.0) Seconds INR 1.0 (0.9-1.1) APTT 20.9 L (21.0-31.0) Seconds PTT Ratio 0.8 Fibrinogen (184-400) mg/dl POC Sodium (135-144) mmol/L Sodium (136-145) mmol/L POC Potassium (3.3-5.0) mmol/L Potassium (3.5-5.1) mmol/L POC Chloride (101-112) mmol/L Chloride (98-107) mmol/L Carbon Dioxide (21-32) mmol/L POC Total CO2 (24-31) mmol/L Anion Gap (3-11) POC Anion Gap (16-25) mmol/L POC BUN (7-18) mg/dl BUN (7-18) mg/dl Creatinine (0.6-1.4) mg/dl POC Creatinine (0.6-1.3) mg/dl Est Cr Clr Drug Dosing Est GFR ( Amer) ml/min Est GFR (Non-Af Amer) ml/min BUN/Creatinine Ratio (10-20) Glucose (70-99) mg/dl POC Glucose (70-99) mg/dl POC Glucose (other) (70-99) mg/dl Estimat Average Glucose mg/dl Hemoglobin A1c (4.5-5.6) % Lactate (0.4-2.0) mmol/L Calcium (8.5-10.1) mg/dl POC Ioniz Calcium Kiran (1.12-1.32) mmol/l Ionized Calcium (1.12-1.32) mmol/L Magnesium (1.8-2.4) mg/dl Total Bilirubin (0.2-1) mg/dl Direct Bilirubin (0-0.2) mg/dl AST (15-37) U/L ALT (12-78) U/L Alkaline Phosphatase (45-117) U/L Troponin I (0-0.045) ng/ml Total Protein (6.4-8.2) gm/dl Albumin (3.4-5.0) gm/dl Lipase (73-393) U/L TSH (0.300-4.500) uIu/ml Free T4 (0.8-1.6) ng/dl Urine Color Urine Appearance (Clear) Urine pH (4.5-7.5) Ur Specific Celina (1.000-1.030) Urine Protein (Negative) Urine Glucose (UA) (Negative) Urine Ketones (Negative) Urine Blood (Negative) Urine Nitrite (Negative) Urine Bilirubin (Negative) Urine Urobilinogen (Negative) Ur Leukocyte Esterase (Negative) Urine WBC (Auto) (0-5) /hpf Urine RBC (Auto) (0-4) /hpf U Hyaline Cast (Auto) (0-5) /lpf U Epithel Cells (Auto) (0-5) /lpf Urine Bacteria (Auto) (Negative) Ur Renal Epithelial Cell Granular Casts (0) /lpf Urine Sperm (None Prsent) Nasal Screen MRSA (PCR) (Negative) Stl C. diff Tox B Gene (Neg) Ethyl Alcohol mg/dL < 3.0 (0-3) mg/dl COVID-19 Eval Order SARS-CoV-2 (PCR) (Negative) Blood Type Antibody Screen Crossmatch 03/23/21 03/23/21 03/23/21 Range/Units 07:56 07:22 04:48 WBC (4.8-10.8) K/uL RBC (4.7-6.1) M/uL Hgb (14.0-18.0) g/dL POC Hgb (14.0-18.0) g/dl Hct (42-52) % POC Hct (42-52) % MCV (80-100) fL MCH (25-34) pg MCHC (32-36) g/dL RDW Std Deviation (36.4-46.3) fL RDW Coeff of Mychal (11.5-14.5) % Plt Count (130-400) K/uL MPV (7.4-10.4) fL Immature Gran % (Auto) % Neut % (Auto) % Lymph % (Auto) % [place] % (Auto) % Eos % (Auto) % Baso % (Auto) % Neut # (Auto) (1.4-6.5) K/uL Lymph # (Auto) (1.2-3.4) K/uL Lar[place] # (Auto) (0.11-0.59) K/uL Eos # (Auto) (0-0.5) K/uL Baso # (Auto) (0-0.2) K/uL Immature Gran # (Auto) (0.00-0.02) K/uL Polychromasia PT (9.0-12.0) Seconds INR (0.9-1.1) APTT (21.0-31.0) Seconds PTT Ratio Fibrinogen (184-400) mg/dl POC Sodium (135-144) mmol/L Sodium (136-145) mmol/L POC Potassium (3.3-5.0) mmol/L Potassium (3.5-5.1) mmol/L POC Chloride (101-112) mmol/L Chloride (98-107) mmol/L Carbon Dioxide (21-32) mmol/L POC Total CO2 (24-31) mmol/L Anion Gap (3-11) POC Anion Gap (16-25) mmol/L POC BUN (7-18) mg/dl BUN (7-18) mg/dl Creatinine (0.6-1.4) mg/dl POC Creatinine (0.6-1.3) mg/dl Est Cr Clr Drug Dosing Est GFR ( Amer) ml/min Est GFR (Non-Af Amer) ml/min BUN/Creatinine Ratio (10-20) Glucose (70-99) mg/dl POC Glucose 115 H (70-99) mg/dl POC Glucose (other) (70-99) mg/dl Estimat Average Glucose 151 mg/dl Hemoglobin A1c 6.9 H (4.5-5.6) % Lactate 2.5 H* (0.4-2.0) mmol/L Calcium (8.5-10.1) mg/dl POC Ioniz Calcium Kiran (1.12-1.32) mmol/l Ionized Calcium (1.12-1.32) mmol/L Magnesium (1.8-2.4) mg/dl Total Bilirubin (0.2-1) mg/dl Direct Bilirubin (0-0.2) mg/dl AST (15-37) U/L ALT (12-78) U/L Alkaline Phosphatase (45-117) U/L Troponin I (0-0.045) ng/ml Total Protein (6.4-8.2) gm/dl Albumin (3.4-5.0) gm/dl Lipase (73-393) U/L TSH (0.300-4.500) uIu/ml Free T4 (0.8-1.6) ng/dl Urine Color Urine Appearance (Clear) Urine pH (4.5-7.5) Ur Specific Celina (1.000-1.030) Urine Protein (Negative) Urine Glucose (UA) (Negative) Urine Ketones (Negative) Urine Blood (Negative) Urine Nitrite (Negative) Urine Bilirubin (Negative) Urine Urobilinogen (Negative) Ur Leukocyte Esterase (Negative) Urine WBC (Auto) (0-5) /hpf Urine RBC (Auto) (0-4) /hpf U Hyaline Cast (Auto) (0-5) /lpf U Epithel Cells (Auto) (0-5) /lpf Urine Bacteria (Auto) (Negative) Ur Renal Epithelial Cell Granular Casts (0) /lpf Urine Sperm (None Prsent) Nasal Screen MRSA (PCR) (Negative) Stl C. diff Tox B Gene (Neg) Ethyl Alcohol mg/dL (0-3) mg/dl COVID-19 Eval Order SARS-CoV-2 (PCR) (Negative) Blood Type Antibody Screen Crossmatch 03/23/21 03/23/21 03/23/21 Range/Units 04:00 02:30 00:54 WBC (4.8-10.8) K/uL RBC (4.7-6.1) M/uL Hgb (14.0-18.0) g/dL POC Hgb (14.0-18.0) g/dl Hct (42-52) % POC Hct (42-52) % MCV (80-100) fL MCH (25-34) pg MCHC (32-36) g/dL RDW Std Deviation (36.4-46.3) fL RDW Coeff of Mychal (11.5-14.5) % Plt Count (130-400) K/uL MPV (7.4-10.4) fL Immature Gran % (Auto) % Neut % (Auto) % Lymph % (Auto) % [place] % (Auto) % Eos % (Auto) % Baso % (Auto) % Neut # (Auto) (1.4-6.5) K/uL Lymph # (Auto) (1.2-3.4) K/uL [place] # (Auto) (0.11-0.59) K/uL Eos # (Auto) (0-0.5) K/uL Baso # (Auto) (0-0.2) K/uL Immature Gran # (Auto) (0.00-0.02) K/uL Polychromasia PT (9.0-12.0) Seconds INR (0.9-1.1) APTT (21.0-31.0) Seconds PTT Ratio Fibrinogen (184-400) mg/dl POC Sodium (135-144) mmol/L Sodium (136-145) mmol/L POC Potassium (3.3-5.0) mmol/L Potassium (3.5-5.1) mmol/L POC Chloride (101-112) mmol/L Chloride (98-107) mmol/L Carbon Dioxide (21-32) mmol/L POC Total CO2 (24-31) mmol/L Anion Gap (3-11) POC Anion Gap (16-25) mmol/L POC BUN (7-18) mg/dl BUN (7-18) mg/dl Creatinine (0.6-1.4) mg/dl POC Creatinine (0.6-1.3) mg/dl Est Cr Clr Drug Dosing Est GFR ( Amer) ml/min Est GFR (Non-Af Amer) ml/min BUN/Creatinine Ratio (10-20) Glucose (70-99) mg/dl POC Glucose (70-99) mg/dl POC Glucose (other) (70-99) mg/dl Estimat Average Glucose mg/dl Hemoglobin A1c (4.5-5.6) % Lactate (0.4-2.0) mmol/L Calcium (8.5-10.1) mg/dl POC Ioniz Calcium Kiran (1.12-1.32) mmol/l Ionized Calcium (1.12-1.32) mmol/L Magnesium (1.8-2.4) mg/dl Total Bilirubin (0.2-1) mg/dl Direct Bilirubin (0-0.2) mg/dl AST (15-37) U/L ALT (12-78) U/L Alkaline Phosphatase (45-117) U/L Troponin I (0-0.045) ng/ml Total Protein (6.4-8.2) gm/dl Albumin (3.4-5.0) gm/dl Lipase (73-393) U/L TSH (0.300-4.500) uIu/ml Free T4 (0.8-1.6) ng/dl Urine Color Dark Yellow Urine Appearance Clear (Clear) Urine pH 5.5 (4.5-7.5) Ur Specific Celina 1.019 (1.000-1.030) Urine Protein 1+ H (Negative) Urine Glucose (UA) Negative (Negative) Urine Ketones Trace H (Negative) Urine Blood Negative (Negative) Urine Nitrite Negative (Negative) Urine Bilirubin Negative (Negative) Urine Urobilinogen Negative (Negative) Ur Leukocyte Esterase Negative (Negative) Urine WBC (Auto) 5-10 H (0-5) /hpf Urine RBC (Auto) 0-4 (0-4) /hpf U Hyaline Cast (Auto) >30 H (0-5) /lpf U Epithel Cells (Auto) >30 H (0-5) /lpf Urine Bacteria (Auto) 1+ H (Negative) Ur Renal Epithelial Cell Not Reportable Granular Casts 1-5 H (0) /lpf Urine Sperm Present A (None Prsent) Nasal Screen MRSA (PCR) Negative (Negative) Stl C. diff Tox B Gene Negative Cdiff Gene (Neg) Ethyl Alcohol mg/dL (0-3) mg/dl COVID-19 Eval Order SARS-CoV-2 (PCR) (Negative) Blood Type Antibody Screen Crossmatch 03/22/21 03/22/21 03/22/21 Range/Units 23:52 23:52 23:48 WBC (4.8-10.8) K/uL RBC (4.7-6.1) M/uL Hgb (14.0-18.0) g/dL POC Hgb 8.5 L (14.0-18.0) g/dl Hct (42-52) % POC Hct 25 L (42-52) % MCV (80-100) fL MCH (25-34) pg MCHC (32-36) g/dL RDW Std Deviation (36.4-46.3) fL RDW Coeff of Mychal (11.5-14.5) % Plt Count (130-400) K/uL MPV (7.4-10.4) fL Immature Gran % (Auto) % Neut % (Auto) % Lymph % (Auto) % [place] % (Auto) % Eos % (Auto) % Baso % (Auto) % Neut # (Auto) (1.4-6.5) K/uL Lymph # (Auto) (1.2-3.4) K/uL [place] # (Auto) (0.11-0.59) K/uL Eos # (Auto) (0-0.5) K/uL Baso # (Auto) (0-0.2) K/uL Immature Gran # (Auto) (0.00-0.02) K/uL Polychromasia PT (9.0-12.0) Seconds INR (0.9-1.1) APTT (21.0-31.0) Seconds PTT Ratio Fibrinogen (184-400) mg/dl POC Sodium 133 L (135-144) mmol/L Sodium (136-145) mmol/L POC Potassium 3.2 L (3.3-5.0) mmol/L Potassium (3.5-5.1) mmol/L POC Chloride 100 L (101-112) mmol/L Chloride (98-107) mmol/L Carbon Dioxide (21-32) mmol/L POC Total CO2 18 L (24-31) mmol/L Anion Gap (3-11) POC Anion Gap 19.0 (16-25) mmol/L POC BUN 14 (7-18) mg/dl BUN (7-18) mg/dl Creatinine (0.6-1.4) mg/dl POC Creatinine 1.6 H (0.6-1.3) mg/dl Est Cr Clr Drug Dosing Est GFR ( Amer) ml/min Est GFR (Non-Af Amer) ml/min BUN/Creatinine Ratio (10-20) Glucose (70-99) mg/dl POC Glucose (70-99) mg/dl POC Glucose (other) 173 H (70-99) mg/dl Estimat Average Glucose mg/dl Hemoglobin A1c (4.5-5.6) % Lactate (0.4-2.0) mmol/L Calcium (8.5-10.1) mg/dl POC Ioniz Calcium Kiran 0.93 L (1.12-1.32) mmol/l Ionized Calcium (1.12-1.32) mmol/L Magnesium (1.8-2.4) mg/dl Total Bilirubin (0.2-1) mg/dl Direct Bilirubin (0-0.2) mg/dl AST (15-37) U/L ALT (12-78) U/L Alkaline Phosphatase (45-117) U/L Troponin I (0-0.045) ng/ml Total Protein (6.4-8.2) gm/dl Albumin (3.4-5.0) gm/dl Lipase (73-393) U/L TSH (0.300-4.500) uIu/ml Free T4 (0.8-1.6) ng/dl Urine Color Urine Appearance (Clear) Urine pH (4.5-7.5) Ur Specific Celina (1.000-1.030) Urine Protein (Negative) Urine Glucose (UA) (Negative) Urine Ketones (Negative) Urine Blood (Negative) Urine Nitrite (Negative) Urine Bilirubin (Negative) Urine Urobilinogen (Negative) Ur Leukocyte Esterase (Negative) Urine WBC (Auto) (0-5) /hpf Urine RBC (Auto) (0-4) /hpf U Hyaline Cast (Auto) (0-5) /lpf U Epithel Cells (Auto) (0-5) /lpf Urine Bacteria (Auto) (Negative) Ur Renal Epithelial Cell Granular Casts (0) /lpf Urine Sperm (None Prsent) Nasal Screen MRSA (PCR) (Negative) Stl C. diff Tox B Gene (Neg) Ethyl Alcohol mg/dL (0-3) mg/dl COVID-19 Eval Order Covid19 at [facility] SARS-CoV-2 (PCR) POSITIVE A* (Negative) Blood Type Antibody Screen Crossmatch 03/22/21 03/22/21 03/22/21 Range/Units 23:37 23:37 23:37 WBC 12.34 H (4.8-10.8) K/uL RBC 2.86 L (4.7-6.1) M/uL Hgb 8.7 L (14.0-18.0) g/dL POC Hgb (14.0-18.0) g/dl Hct 26.3 L (42-52) % POC Hct (42-52) % MCV 92.0 (80-100) fL MCH 30.4 (25-34) pg MCHC 33.1 (32-36) g/dL RDW Std Deviation 51.0 H (36.4-46.3) fL RDW Coeff of Mychal 15.2 H (11.5-14.5) % Plt Count 380 (130-400) K/uL MPV 9.6 (7.4-10.4) fL Immature Gran % (Auto) 0.3 % Neut % (Auto) 72.5 % Lymph % (Auto) 15.7 % [place] % (Auto) 8.4 % Eos % (Auto) 2.7 % Baso % (Auto) 0.4 % Neut # (Auto) 8.94 H (1.4-6.5) K/uL Lymph # (Auto) 1.94 (1.2-3.4) K/uL [place] # (Auto) 1.04 H (0.11-0.59) K/uL Eos # (Auto) 0.33 (0-0.5) K/uL Baso # (Auto) 0.05 (0-0.2) K/uL Immature Gran # (Auto) 0.04 H (0.00-0.02) K/uL Polychromasia 1+ PT 60.9 H (9.0-12.0) Seconds INR 7.0 H* (0.9-1.1) APTT 49.0 H* (21.0-31.0) Seconds PTT Ratio 1.9 Fibrinogen (184-400) mg/dl POC Sodium (135-144) mmol/L Sodium 136 (136-145) mmol/L POC Potassium (3.3-5.0) mmol/L Potassium 3.1 L (3.5-5.1) mmol/L POC Chloride (101-112) mmol/L Chloride 103 (98-107) mmol/L Carbon Dioxide 20 L (21-32) mmol/L POC Total CO2 (24-31) mmol/L Anion Gap 12.0 H (3-11) POC Anion Gap (16-25) mmol/L POC BUN (7-18) mg/dl BUN 14 (7-18) mg/dl Creatinine 1.72 H (0.6-1.4) mg/dl POC Creatinine (0.6-1.3) mg/dl Est Cr Clr Drug Dosing Not Reportable Est GFR ( Amer) 49.0 ml/min Est GFR (Non-Af Amer) 42.3 ml/min BUN/Creatinine Ratio 8.2 L (10-20) Glucose 169 H (70-99) mg/dl POC Glucose (70-99) mg/dl POC Glucose (other) (70-99) mg/dl Estimat Average Glucose mg/dl Hemoglobin A1c (4.5-5.6) % Lactate (0.4-2.0) mmol/L Calcium 7.2 L (8.5-10.1) mg/dl POC Ioniz Calcium Kiran (1.12-1.32) mmol/l Ionized Calcium (1.12-1.32) mmol/L Magnesium 1.8 (1.8-2.4) mg/dl Total Bilirubin 0.3 (0.2-1) mg/dl Direct Bilirubin < 0.1 (0-0.2) mg/dl AST 13 L (15-37) U/L ALT 22 (12-78) U/L Alkaline Phosphatase 112 (45-117) U/L Troponin I < 0.015 (0-0.045) ng/ml Total Protein 5.4 L (6.4-8.2) gm/dl Albumin 1.7 L (3.4-5.0) gm/dl Lipase 101 (73-393) U/L TSH 5.730 H (0.300-4.500) uIu/ml Free T4 0.97 (0.8-1.6) ng/dl Urine Color Urine Appearance (Clear) Urine pH (4.5-7.5) Ur Specific [place] (1.000-1.030) Urine Protein (Negative) Urine Glucose (UA) (Negative) Urine Ketones (Negative) Urine Blood (Negative) Urine Nitrite (Negative) Urine Bilirubin (Negative) Urine Urobilinogen (Negative) Ur Leukocyte Esterase (Negative) Urine WBC (Auto) (0-5) /hpf Urine RBC (Auto) (0-4) /hpf U Hyaline Cast (Auto) (0-5) /lpf U Epithel Cells (Auto) (0-5) /lpf Urine Bacteria (Auto) (Negative) Ur Renal Epithelial Cell Granular Casts (0) /lpf Urine Sperm (None Prsent) Nasal Screen MRSA (PCR) (Negative) Stl C. diff Tox B Gene (Neg) Ethyl Alcohol mg/dL (0-3) mg/dl COVID-19 Eval Order SARS-CoV-2 (PCR) (Negative) Blood Type Antibody Screen Crossmatch 03/22/21 Range/Units 23:37 WBC (4.8-10.8) K/uL RBC (4.7-6.1) M/uL Hgb (14.0-18.0) g/dL POC Hgb (14.0-18.0) g/dl Hct (42-52) % POC Hct (42-52) % MCV (80-100) fL MCH (25-34) pg MCHC (32-36) g/dL RDW Std Deviation (36.4-46.3) fL RDW Coeff of Mychal (11.5-14.5) % Plt Count (130-400) K/uL MPV (7.4-10.4) fL Immature Gran % (Auto) % Neut % (Auto) % Lymph % (Auto) % [place] % (Auto) % Eos % (Auto) % Baso % (Auto) % Neut # (Auto) (1.4-6.5) K/uL Lymph # (Auto) (1.2-3.4) K/uL [place] # (Auto) (0.11-0.59) K/uL Eos # (Auto) (0-0.5) K/uL Baso # (Auto) (0-0.2) K/uL Immature Gran # (Auto) (0.00-0.02) K/uL Polychromasia PT (9.0-12.0) Seconds INR (0.9-1.1) APTT (21.0-31.0) Seconds PTT Ratio Fibrinogen (184-400) mg/dl POC Sodium (135-144) mmol/L Sodium (136-145) mmol/L POC Potassium (3.3-5.0) mmol/L Potassium (3.5-5.1) mmol/L POC Chloride (101-112) mmol/L Chloride (98-107) mmol/L Carbon Dioxide (21-32) mmol/L POC Total CO2 (24-31) mmol/L Anion Gap (3-11) POC Anion Gap (16-25) mmol/L POC BUN (7-18) mg/dl BUN (7-18) mg/dl Creatinine (0.6-1.4) mg/dl POC Creatinine (0.6-1.3) mg/dl Est Cr Clr Drug Dosing Est GFR ( Amer) ml/min Est GFR (Non-Af Amer) ml/min BUN/Creatinine Ratio (10-20) Glucose (70-99) mg/dl POC Glucose (70-99) mg/dl POC Glucose (other) (70-99) mg/dl Estimat Average Glucose mg/dl Hemoglobin A1c (4.5-5.6) % Lactate (0.4-2.0) mmol/L Calcium (8.5-10.1) mg/dl POC Ioniz Calcium Kiran (1.12-1.32) mmol/l Ionized Calcium (1.12-1.32) mmol/L Magnesium (1.8-2.4) mg/dl Total Bilirubin (0.2-1) mg/dl Direct Bilirubin (0-0.2) mg/dl AST (15-37) U/L ALT (12-78) U/L Alkaline Phosphatase (45-117) U/L Troponin I (0-0.045) ng/ml Total Protein (6.4-8.2) gm/dl Albumin (3.4-5.0) gm/dl Lipase (73-393) U/L TSH (0.300-4.500) uIu/ml Free T4 (0.8-1.6) ng/dl Urine Color Urine Appearance (Clear) Urine pH (4.5-7.5) Ur Specific [place] (1.000-1.030) Urine Protein (Negative) Urine Glucose (UA) (Negative) Urine Ketones (Negative) Urine Blood (Negative) Urine Nitrite (Negative) Urine Bilirubin (Negative) Urine Urobilinogen (Negative) Ur Leukocyte Esterase (Negative) Urine WBC (Auto) (0-5) /hpf Urine RBC (Auto) (0-4) /hpf U Hyaline Cast (Auto) (0-5) /lpf U Epithel Cells (Auto) (0-5) /lpf Urine Bacteria (Auto) (Negative) Ur Renal Epithelial Cell Granular Casts (0) /lpf Urine Sperm (None Prsent) Nasal Screen MRSA (PCR) (Negative) Stl C. diff Tox B Gene (Neg) Ethyl Alcohol mg/dL (0-3) mg/dl COVID-19 Eval Order SARS-CoV-2 (PCR) (Negative) Blood Type A Positive Antibody Screen NEGATIVE Crossmatch See Detail Diagnostic Findings CXR: FINDINGS: An AP, portable, upright chest radiograph is compared to chest x-ray and chest CT dated 10/09/2020. The heart is enlarged. The pulmonary vasculature is noncongested. Chronic interstitial thickening similar to previous. Scarring/atelectasis is noted at the lung bases. The lungs and pleural spaces are otherwise clear. No pneumothorax is seen. The skeletal structures are osteopenic. The bony thorax is grossly intact. IMPRESSION: Cardiomegaly with no active disease in the chest.
[2021-03-23 13:26] LABS: Hematocrit (blood only) 29.1 % (42-52); Hemoglobin 9.8 g/dL (14.0-18.0)
--- NOTE | 2021-03-23 15:32 | Hospitalist Progress Note ---
Date of Service March 23, 2021 Assessment & Plan (1) Hypotension: Plan: Secondary to hemorrhagic shock secondary to L GIB in the setting of Coumadin coagulopathy Diarrheal illness secondary to recent COVID-19 illness (2) Anemia due to GI blood loss: Plan: Received 1 unit of blood taking Hb from 8.7 to 9.3. H/H remains relatively stable. Monitor CBC. Per GI endoscopy is deferred. (3) Supratherapeutic INR: Plan: coumadin use at home, presented with INR 7 after recent home illness with covid- 19. Given Kcentra and vit K on admission. INR normalized. (4) Paroxysmal atrial flutter: Plan: s/p cardioversion historically. He has been in sinus rhythm this entire admission and remains off anticoagulation for the time being until bleeding completely resolves. (5) COVID: Plan: recent covid illness reported at home. He is still testing covid positive but is asymptomatic from a respiratory standpoint and is outside the window of treatment. (6) CAD (coronary artery disease): Plan: cont current medical therapy, evaluated by cardiology this admission, condition is chronic and appears stable. (7) T2DM (type 2 diabetes mellitus): Plan: At inpatient goal, cont basal bolus insulin coverage. (8) Acute renal failure: Plan: resolving with treatment. (9) DVT prophylaxis: Plan: SCDs/ ambulation Full Code Dispo-to home when medically stable Hattie Pardo DO [facility] Hospitalist Admission and Anticipated Discharge Date Admission Date: March 23, 2021 Subjective 61 yo M on coumadin for anticoauglation of atrial fibrillation. Recently with supratherapeutic INR Pt transferred out of the ICU today Reports feeling well, denies abdominal pain Nurse reports that he has 50% dark blood mixed into stool still present. tolerating PO Review of Systems Review of Systems: At least ten systems were reviewed and negative except as indicated in HPI above. Physical Exam Physical Exam: CONSTITUTIONAL: obese, vitals as above, generally well- appearing, NAD EYES: normal conjunctivae, no scleral icterus ENT: external ear and nose normal NECK: trachea midline RESPIRATORY: clear to auscultation bilaterally, no crackles, rales or wheezes, normal respiratory effort CARDIOVASCULAR: regular rate and rhythm, S1 and 2 heard without murmurs, gallops or rubs, no JVD, no peripheral edema GASTROINTESTINAL: soft, nontender, ND, no guarding MUSCULOSKELETAL: strength 5/5 throughout, head is normocephalic and atraumatic SKIN: warm and dry NEUROLOGIC: CN 2-12 grossly intact, no sensory deficit, normal cognition, normal speech, no tremor PSYCHIATRIC: alert cooperative and oriented to person, place and time. Euthymic mood, makes good eye contact, language grossly intact, recent and remote memory grossly intact. Results & Data Results & Data ([facility]) Vital Signs (Past 12 Hours) Vital Signs Temp Pulse Pulse Resp BP BP Pulse Ox 03/23/21 12:00 91 H 16 99/61 L 95 03/23/21 10:00 94 H 24 82/49 L 93 03/23/21 08:00 92 H 18 98 03/23/21 06:00 92 H 22 97 03/23/21 05:55 90 20 99 03/23/21 05:50 93 H 22 93 03/23/21 05:45 89 19 96 03/23/21 05:40 91 H 21 95/52 L 97 03/23/21 05:35 92 H 18 98 03/23/21 05:30 91 H 20 95 03/23/21 05:25 92 H 19 97 03/23/21 05:20 91 H 19 96 03/23/21 05:15 91 H 18 95 03/23/21 05:10 90 19 93 03/23/21 05:05 91 H 19 93 03/23/21 05:00 90 20 94 03/23/21 04:57 36.6 C 03/23/21 04:55 90 20 98 03/23/21 04:50 89 15 99 03/23/21 04:45 89 16 98 03/23/21 04:40 88 25 H 96 03/23/21 04:36 36.6 C 89 17 93/56 L 98 03/23/21 04:35 88 19 96 03/23/21 04:30 88 17 96 03/23/21 04:25 90 14 96 03/23/21 04:20 90 20 96 03/23/21 04:15 92 H 20 100 03/23/21 04:10 94 H 14 95 03/23/21 04:05 92 H 15 95 03/23/21 04:00 90 11 L 98 03/23/21 03:40 90 97/78 L 97 03/23/21 03:38 36.7 C 89 17 97/78 L 93 Laboratory Results Short CBC 03/22/21 03/23/21 03/23/21 Range/Units 23:37 07:56 12:58 WBC 12.34 H 13.30 H (4.8-10.8) K/uL Hgb 8.7 L 9.3 L 9.8 L (14.0-18.0) g/dL Hct 26.3 L 27.8 L 29.1 L (42-52) % Plt Count 380 329 (130-400) K/uL BMP 03/22/21 03/23/21 23:37 07:56 Sodium 136 138 Potassium 3.1 L 3.6 D Chloride 103 108 H Carbon Dioxide 20 L 21 BUN 14 14 Creatinine 1.72 H 1.37 D Glucose 169 H 117 H Calcium 7.2 L 7.3 L Cardiac Enzymes 03/22/21 Range/Units 23:37 Troponin I < 0.015 (0-0.045) ng/ml Liver Function 03/22/21 Range/Units 23:37 Total Bilirubin 0.3 (0.2-1) mg/dl Direct Bilirubin < 0.1 (0-0.2) mg/dl AST 13 L (15-37) U/L ALT 22 (12-78) U/L Alkaline Phosphatase 112 (45-117) U/L Albumin 1.7 L (3.4-5.0) gm/dl Urine 03/23/21 Range/Units 00:54 Urine Color Dark Yellow Urine Appearance Clear (Clear) Urine pH 5.5 (4.5-7.5) Ur Specific [place] 1.019 (1.000-1.030) Urine Protein 1+ H (Negative) Urine Glucose (UA) Negative (Negative) Diagnostic Findings Chest X-Ray 03/23/21 00:07 SINGLE VIEW CHEST CLINICAL HISTORY: GI bleeding. FINDINGS: An AP, portable, upright chest radiograph is compared to chest x-ray and chest CT dated 10/09/2020. The heart is enlarged. The pulmonary vasculature is noncongested. Chronic interstitial thickening similar to previous. Scarring/atelectasis is noted at the lung bases. The lungs and pleural spaces are otherwise clear. No pneumothorax is seen. The skeletal structures are osteopenic. The bony thorax is grossly intact. IMPRESSION: Cardiomegaly with no active disease in the chest. ACT 112: Negative or not required by law. Electronically signed by: Clifford Brizuela M.D. 03/23/2021 8:00 AM Medications Administered Current Inpatient Medications Acetaminophen (Acetaminophen 325 Mg Tab) 650 mg PO Q6H PRN PRN Reason: Fever/pain Stop: 04/22/21 04:30 Atorvastatin Calcium (Atorvastatin 40 Mg Tab) 40 mg PO QPM BRITTANI Stop: 04/22/21 20:59 Dextrose (Dextrose 50% 50 Ml Syringe) 25 - 50 ml IV UD PRN; Protocol PRN Reason: Hypoglycemia Protocol Stop: 04/22/21 04:30 Glucagon (Glucagon For Inj 1 Mg Vial) 1 mg SQ UD PRN; Protocol PRN Reason: Hypoglycemia Protocol Stop: 04/22/21 04:30 Glucose (Glucose 10 Tabs/Tube) 4 - 8 tabs PO UD PRN; Protocol PRN Reason: Hypoglycemia Protocol Stop: 04/22/21 04:30 Glucose (Glucose 40% Gel 15 Gm Tube) 15 - 30 gm PO UD PRN; Protocol PRN Reason: Hypoglycemia Protocol Stop: 04/22/21 04:30 Promethazine HCl 12.5 mg/ (Sodium Chloride) 50.5 mls @ 202 mls/hr IV Q6H PRN PRN Reason: Nausea And Vomiting Stop: 04/22/21 04:30 Potassium Chloride 40 meq/ (Sodium Chloride) 1,020 mls @ 125 mls/hr IV .Q8H10M BRITTANI Stop: 03/23/21 20:49 Last Admin: 03/23/21 11:11 Dose: 125 mls/hr Documented by: Thiamine HCl 100 mg/ Syringe 10 mls @ 2 mls/min IV QAM BRITTANI Stop: 04/22/21 09:59 Last Admin: 03/23/21 11:11 Dose: 2 mls/min Documented by: Insulin Aspart (Insulin Aspart 100 Units/Ml 3 Ml Pen) 0 units SC ACHS BRITTANI Stop: 04/22/21 04:30 Last Admin: 03/23/21 11:20 Dose: Not Given Documented by: Insulin Glargine (Insulin Glargine Solostar 100 Units/Ml 3 Ml Pen) 5 units SC DAILY BRITTANI Stop: 04/22/21 08:59 Last Admin: 03/23/21 09:04 Dose: 5 units Documented by: Miscellaneous (Icu Protocol For Hyperglycemia) 1 ea N/A PRN PRN; Protocol PRN Reason: Hyperglycemia Protocol Stop: 03/25/21 04:30 Miscellaneous (Carbohydrates For Hypoglycemia ) 15 - 30 gm PO UD PRN PRN Reason: Hypoglycemia Protocol Stop: 04/22/21 04:30 Multivitamins (Multivitamin Tab) 1 tab PO QAM [facility] Stop: 04/22/21 08:59 Last Admin: 03/23/21 07:49 Dose: Not Given Documented by: Oxycodone HCl (Oxycodone Hcl Ir 5 Mg Tab (Immediate Release)) 5 mg PO Q4H PRN PRN Reason: Pain Stop: 04/06/21 04:30
[2021-03-23] MEDS: SOTALOL HCL 80 MG TAB PO SCH (21:17)
[2021-03-23] MEDS: ATORVASTATIN 40 MG TAB PO SCH (21:26)
[2021-03-24 06:13] LABS: Basophils # (auto) 0.04 K/uL (0-0.2); Basophils % (auto) 0.3 %; Eosinophils # (auto) 0.34 K/uL (0-0.5); Eosinophils % (auto) 2.2 %; Hematocrit (blood only) 27.3 % (42-52); Hemoglobin 9.1 g/dL (14.0-18.0); Immature Granulocytes # (auto) 0.06 K/uL (0.00-0.02); Immature Granulocytes % (auto) 0.4 %; Lymphocytes # (auto) 1.82 K/uL (1.2-3.4); Lymphocytes % (auto) 11.9 %; Mean Corpuscular Hemoglobin 30.7 pg (25-34); Mean Corpuscular Hgb Conc 33.3 g/dL (32-36); Mean Corpuscular Volume 92.2 fL (80-100); Mean Platelet Volume 9.8 fL (7.4-10.4); Monocytes # (auto) 1.73 K/uL (0.11-0.59); Monocytes % (auto) 11.3 %; Neutrophils # (auto) 11.27 K/uL (1.4-6.5); Neutrophils % (auto) 73.9 %; Platelet Count 316 K/uL (130-400); RDW Coefficient of Variation 16.1 % (11.5-14.5); RDW Standard Deviation 53.7 fL (36.4-46.3); Red Blood Count 2.96 M/uL (4.7-6.1); White Blood Count 15.26 K/uL (4.8-10.8)
[2021-03-24 06:41] LABS: BUN Creatinine Ratio 11.3 (10-20); Creatinine Clr Calc Pharmacy 110.1 ml/min; Est GFR (African American) 97.9 ml/min; Est GFR (Non-African American) 84.5 ml/min; Potassium 3.8 mmol/L (3.5-5.1)
[2021-03-24] MEDS: MULTIVITAMIN TAB PO SCH (08:00)
[2021-03-24] MEDS: SOTALOL HCL 80 MG TAB PO SCH ×2 (08:01→20:14)
[2021-03-24] MEDS: METOPROLOL SUCC 25MG EXT REL TAB PO SCH (08:01)
[2021-03-24] MEDS: CHOLECALCIFEROL 1,000 UNITS 25 MCG TAB PO SCH (08:01)
[2021-03-24] MEDS: THIAMINE HCL 100 MG in SYRINGE 9 ML IV SCH (08:02)
[2021-03-24] MEDS: INSULIN ASPART 100 UNITS/ML 3 ML PEN SC SCH ×4 (08:46→20:33)
[2021-03-24] MEDS: INSULIN GLARGINE SOLOSTAR 100 UNITS/ML 3 ML PEN SC SCH (08:46)
--- NOTE | 2021-03-24 16:21 | Gastroenterology Progress Note ---
Date of Service March 24, 2021 Assessment & Plan Admission and Anticipated Discharge Date Admission Date: March 23, 2021 Subjective VS stable, Hgb stable. Cont conservative care, defer colonoscopy.. Hold anti- coag for now, resume if no gross bleeding x 3 days. Results & Data ([facility]) Vital Signs (Past 12 Hours) Vital Signs Temp Pulse Pulse Resp BP BP Pulse Ox 03/24/21 12:00 36.3 C L 92 H 18 102/66 96 03/24/21 08:04 36.3 C L 95 H 18 97/67 L 97 03/24/21 08:00 96 H
[2021-03-24] MEDS: ATORVASTATIN 40 MG TAB PO SCH (20:13)
--- NOTE | 2021-03-24 20:35 | Hospitalist Progress Note ---
Date of Service March 24, 2021 Assessment & Plan (1) Hypotension: Plan: Secondary to hemorrhagic shock secondary to L GIB in the setting of Coumadin coagulopathy Diarrheal illness secondary to recent COVID-19 illness vs active GI bleeding, improved with treatment. Cont to hold home lisinopril and lasix at this time with borderline BP. (2) Anemia due to GI blood loss: Plan: Received 1 unit of blood taking Hb from 8.7 to 9.3. H/H remains relatively stable. Monitor CBC. Per GI endoscopy is deferred. With ongoing reports of bleeding and rising leukocytosis will investigate further with imaging. (3) Supratherapeutic INR: Plan: coumadin use at home, presented with INR 7 after recent home illness with covid- 19. Given Kcentra and vit K on admission. INR normalized. (4) Paroxysmal atrial flutter: Plan: s/p cardioversion historically. He has been in sinus rhythm this entire admission and remains off anticoagulation for the time being until bleeding completely resolves. (5) COVID: Plan: recent covid illness reported at home. He is still testing covid positive but is asymptomatic from a respiratory standpoint and is outside the window of treatment. (6) CAD (coronary artery disease): Plan: cont current medical therapy, evaluated by cardiology this admission, condition is chronic and appears stable. (7) T2DM (type 2 diabetes mellitus): Plan: At inpatient goal, stop 5 units of glargine daily to save him from unnecessary sticks. Cont with Novolog insulin coverage with carb coverage (8) Acute renal failure: Plan: Resolved to normal with treatment. (9) DVT prophylaxis: Plan: SCDs/ ambulation Full Code Dispo-to home when medically stable Hattie Pardo DO [facility] Hospitalist Admission and Anticipated Discharge Date Admission Date: March 23, 2021 Subjective 61 yo M on coumadin for anticoauglation of atrial fibrillation. Recently with supratherapeutic INR WBC up to 15K today Hb steady around 9 up and ambulating to and from bathroom without issues reports some soft mushy stool wtih drip of blood at the end that are bright red, not mixed in with the stool itself. afebrile and feeling improved. Review of Systems Review of Systems: At least ten systems were reviewed and negative except as indicated in HPI above. Physical Exam Physical Exam: CONSTITUTIONAL: obese, vitals as above, generally well- appearing, NAD EYES: normal conjunctivae, no scleral icterus ENT: external ear and nose normal NECK: trachea midline RESPIRATORY: clear to auscultation bilaterally, no crackles, rales or wheezes, normal respiratory effort CARDIOVASCULAR: regular rate and rhythm, S1 and 2 heard without murmurs, gallops or rubs, no JVD, no peripheral edema GASTROINTESTINAL: soft, nontender, ND, no guarding MUSCULOSKELETAL: strength 5/5 throughout, head is normocephalic and atraumatic SKIN: warm and dry NEUROLOGIC: CN 2-12 grossly intact, no sensory deficit, normal cognition, normal speech, no tremor PSYCHIATRIC: alert cooperative and oriented to person, place and time. Euthymic mood, makes good eye contact, language grossly intact, recent and remote memory grossly intact. Results & Data Results & Data ([facility]) Vital Signs (Past 12 Hours) Vital Signs Temp Pulse Pulse Resp BP Pulse Ox 03/24/21 20:13 102 H 105/67 03/24/21 17:09 36.8 C 102 H 18 108/71 99 03/24/21 16:00 97 H 03/24/21 12:00 36.3 C L 92 H 18 102/66 96 Laboratory Results Short CBC 03/24/21 Range/Units 04:44 WBC 15.26 H (4.8-10.8) K/uL Hgb 9.1 L (14.0-18.0) g/dL Hct 27.3 L (42-52) % Plt Count 316 (130-400) K/uL BMP 03/24/21 04:44 Sodium 139 Potassium 3.8 Chloride 111 H Carbon Dioxide 22 BUN 11 Creatinine 0.97 D Glucose 133 H Calcium 7.0 L Medications Administered Current Inpatient Medications Acetaminophen (Acetaminophen 325 Mg Tab) 650 mg PO Q6H PRN PRN Reason: Fever/pain Stop: 04/22/21 04:30 Atorvastatin Calcium (Atorvastatin 40 Mg Tab) 40 mg PO QPM [facility] Stop: 04/22/21 20:59 Last Admin: 03/24/21 20:13 Dose: 40 mg Documented by: Dextrose (Dextrose 50% 50 Ml Syringe) 25 - 50 ml IV UD PRN; Protocol PRN Reason: Hypoglycemia Protocol Stop: 04/22/21 04:30 Glucagon (Glucagon For Inj 1 Mg Vial) 1 mg SQ UD PRN; Protocol PRN Reason: Hypoglycemia Protocol Stop: 04/22/21 04:30 Glucose (Glucose 10 Tabs/Tube) 4 - 8 tabs PO UD PRN; Protocol PRN Reason: Hypoglycemia Protocol Stop: 04/22/21 04:30 Glucose (Glucose 40% Gel 15 Gm Tube) 15 - 30 gm PO UD PRN; Protocol PRN Reason: Hypoglycemia Protocol Stop: 04/22/21 04:30 Thiamine HCl 100 mg/ Syringe 10 mls @ 2 mls/min IV QAM BRITTANI Stop: 04/22/21 09:59 Last Admin: 03/24/21 08:02 Dose: 2 mls/min Documented by: Insulin Aspart (Insulin Aspart 100 Units/Ml 3 Ml Pen) 0 units SC ACHS [facility] Stop: 04/22/21 04:30 Last Admin: 03/24/21 20:33 Dose: 1 units Documented by: Insulin Glargine (Insulin Glargine Solostar 100 Units/Ml 3 Ml Pen) 5 units SC DAILY BRITTANI Stop: 04/22/21 08:59 Last Admin: 03/24/21 08:46 Dose: 5 units Documented by: Metoprolol Succinate (Metoprolol Succ 25mg Ext Rel Tab) 25 mg PO QAM [facility] Stop: 04/23/21 08:59 Last Admin: 03/24/21 08:01 Dose: Not Given Documented by: Miscellaneous (Icu Protocol For Hyperglycemia) 1 ea N/A PRN PRN; Protocol PRN Reason: Hyperglycemia Protocol Stop: 03/25/21 04:30 Miscellaneous (Carbohydrates For Hypoglycemia ) 15 - 30 gm PO UD PRN PRN Reason: Hypoglycemia Protocol Stop: 04/22/21 04:30 Multivitamins (Multivitamin Tab) 1 tab PO QAM BRITTANI Stop: 04/22/21 08:59 Last Admin: 03/24/21 08:00 Dose: 1 tab Documented by: Oxycodone HCl (Oxycodone Hcl Ir 5 Mg Tab (Immediate Release)) 5 mg PO Q4H PRN PRN Reason: Pain Stop: 04/06/21 04:30 Sotalol HCl (Sotalol Hcl 80 Mg Tab) 80 mg PO BID BRITTANI Stop: 04/22/21 20:59 Last Admin: 03/24/21 20:14 Dose: Not Given Documented by: Vitamin D (Cholecalciferol 1,000 Units 25 Mcg Tab) 1,000 units PO QAM [facility] Stop: 04/23/21 08:59 Last Admin: 03/24/21 08:01 Dose: 1,000 units Documented by:
[2021-03-25] MEDS: MULTIVITAMIN TAB PO SCH (08:24)
[2021-03-25] MEDS: CHOLECALCIFEROL 1,000 UNITS 25 MCG TAB PO SCH (08:24)
[2021-03-25] MEDS: INSULIN ASPART 100 UNITS/ML 3 ML PEN SC SCH ×3 (08:25→18:22)
[2021-03-25 08:48] LABS: Basophils # (auto) 0.04 K/uL (0-0.2); Basophils % (auto) 0.4 %; Eosinophils % (auto) 5.2 %; Hematocrit (blood only) 25.9 % (42-52); Hemoglobin 8.7 g/dL (14.0-18.0); Immature Granulocytes # (auto) 0.02 K/uL (0.00-0.02); Immature Granulocytes % (auto) 0.2 %; Lymphocytes # (auto) 2.44 K/uL (1.2-3.4); Lymphocytes % (auto) 25.5 %; Mean Corpuscular Hemoglobin 30.6 pg (25-34); Mean Corpuscular Hgb Conc 33.6 g/dL (32-36); Mean Corpuscular Volume 91.2 fL (80-100); Mean Platelet Volume 9.2 fL (7.4-10.4); Monocytes # (auto) 1.07 K/uL (0.11-0.59); Monocytes % (auto) 11.2 %; Neutrophils % (auto) 57.5 %; Platelet Count 334 K/uL (130-400); RDW Coefficient of Variation 15.9 % (11.5-14.5); RDW Standard Deviation 52.6 fL (36.4-46.3); Red Blood Count 2.84 M/uL (4.7-6.1); White Blood Count 9.57 K/uL (4.8-10.8)
[2021-03-25] MEDS ORDERED: THIAMINE HCL 100 MG TAB PO SCH (09:00)
[2021-03-25 09:23] LABS: Albumin Level 1.3 gm/dl (3.4-5.0); BUN Creatinine Ratio 10.3 (10-20); Calcium 6.8 mg/dl (8.5-10.1); Creatinine Clr Calc Pharmacy 128.7 ml/min; Est GFR (African American) 110.8 ml/min; Est GFR (Non-African American) 95.6 ml/min; Potassium 3.4 mmol/L (3.5-5.1)
[2021-03-25 09:26] LABS: Albumin Globulin Ratio 0.4 (0.9-2); Bilirubin,Total 0.4 mg/dl (0.2-1); Globulin 3.3 gm/dl (2.5-4.0); Total Protein 4.6 gm/dl (6.4-8.2)
--- NOTE | 2021-03-25 10:20 | Gastroenterology Progress Note ---
Date of Service March 25, 2021 Assessment & Plan Admission and Anticipated Discharge Date Admission Date: March 23, 2021 Subjective Hgb relatively stable. There is no further recorded stool output. CT pending. LGIB, clinically resolved. COVID positive - Defer endosocpy. Can have outpt cscopy. Please call with further questions, or if develops recurrence of overt GIB. OK to resume anticoag if no further bleeding x 3 days. Results & Data ([facility]) Vital Signs (Past 12 Hours) Vital Signs Temp Pulse Resp BP Pulse Ox 03/25/21 08:22 36.8 C 99 H 18 101/74 97 03/24/21 23:29 36.8 C 116 H 18 95/63 L 96
[2021-03-25] MEDS ORDERED: OPTIRAY 320 100ml IV ONE (10:44)
--- NOTE | 2021-03-25 11:18 | CT Scan Report ---
CT abd pelvis IV con only CLINICAL HISTORY: +leukocytosis, acute GI bleed TECHNIQUE: Helical axial images of the abdomen and pelvis were obtained and displayed. Automated dose lowering techniques and/or adjustment according to patient size were utilized for this exam. This e xam was performed with intravenous contrast. COMPARISON: None available at the time of this dictation. FINDINGS: Lower chest: No acute abnormality Liver: Hepatic steatosis is noted. Gallbladder and biliary tree: The gallbladder is contracted. No intra- or extrahepatic biliary ductal dilation. Pancreas: Unremarkable, no focal lesions. Spleen: Unremarkable. Adrenals: Unremarkable. Kidneys and ureters: Unremarkable. Bladder: Limited evaluation due to underdistention. Reproductive organs: Prostatic calcifications are seen which may represent prior hemorrhage or granul omatous disease. Bowel: Wall thickening and vascular prominence is seen in the hepatic flexure and proximal transverse colon. The appendix is normal. Lymph nodes Retroperitoneal: Unremarkable. Mesenteric: Unremarkable. Pelvic: Unremarkable. Peritoneum: Normal Vessels: Atherosclerotic calcifications are seen. Abdominal wall: Left fat containing inguinal hernia. A fat-containing umbilical hernia is seen. Bones: Degenerative changes are seen. There are pars defects at L5 with resulting grade 1 anterolisth esis of L5-S1. IMPRESSION: Wall thickening and vascular prominence of the transverse colon and hepatic flexure may reflect infec tious/inflammatory colitis. Otherwise no acute abnormalities. ACT 112: Negative or not required by law. Electronically signed by: Horace Mcintyre M.D. 03/25/2021 11:17 AM
[2021-03-25] MEDS: METOPROLOL SUCC 25MG EXT REL TAB PO SCH (11:38)
[2021-03-25] MEDS: SOTALOL HCL 80 MG TAB PO SCH (11:38)
--- NOTE | 2021-03-25 16:02 | Discharge Summary ---
Date of Service March 25, 2021 Admission HPI Per Admitting Provider History obtained from patient, family, and records. Medical history significant for CAD status post stent, atrial flutter status post cardioversion on Coumadin, hypertension, hyperlipidemia, DM2 on oral medications, chronic anemia (baseline hemoglobin of 13), past tobacco abuse. Last confinement April 2019 for atrial flutter status post cardioversion. Sotalol added to patient's metoprolol. Patient discharged on Coumadin in place of Eliquis. 3 weeks ago, patient and had self-limited sinus congestion symptoms without chest pain, S OB. Patient's had a positive COVID-19 test. Patient self isolated himself for presumptive COVID-19 infection. Patient has not received COVID-19 vaccination. A week later, patient later on developed watery diarrhea later noted to be bloody without abdominal pain symptoms. No recent antibiotic Rx. No fever, no chills. Patient and tried to contact outpatient providers to inquire about home medications possibly causing diarrhea. Patient later on noted dizziness worse on standing up. No headache symptoms. Patient brought to the ER for evaluation by . Initial SBP 70s. Hemoglobin noted to be 8.7, INR noted to be 7. Vitamin K and Kcentra administered for Coumadin coagulopathy. Medical History as above 2013 colonoscopy showed hemorrhoids, fair preparation Surgical History : Tonsillectomy/adenoidectomy, ulnar nerve revision Family History : DM, heart disease Personal/Social history : Past tobacco abuse, occasional EtOH intake, currently on workers Compensation due to back issues Admission Exam Per Admitting Provider GENERAL: Comfortable, obese, no respiratory distress SKIN: Pallor , warm HEENT: Partial alopecia, pale palpebral conjunctivae, no ptosis, dry buccal mucosa NECK : Supple, short neck, no tenderness CHEST : CTA, no tenderness HEART : RRR, no obvious murmurs ABDOMEN: Some distention, nontender EXTREMITIES : No LE swelling/tenderness, no other conspicuous deformities noted NEUROLOGIC : Coherent, no facial asymmetry, no other gross focality Principal Diagnosis Hypotension Anemia 2/2 GI blood loss Supratherapeutic INR Colitis PAF COVID Discharge Exam CONSTITUTIONAL: obese, vitals as above, generally well-appearing, NAD EYES: normal conjunctivae, no scleral icterus ENT: external ear and nose normal NECK: trachea midline RESPIRATORY: clear to auscultation bilaterally, no crackles, rales or wheezes, normal respiratory effort CARDIOVASCULAR: regular rate and rhythm, S1 and 2 heard without murmurs, gallops or rubs, no JVD, no peripheral edema GASTROINTESTINAL: soft, nontender, ND, no guarding, protuberant MUSCULOSKELETAL: strength 5/5 throughout, head is normocephalic and atraumatic SKIN: warm and dry NEUROLOGIC: CN 2-12 grossly intact, no sensory deficit, normal cognition, normal speech, no tremor PSYCHIATRIC: alert cooperative and oriented to person, place and time. Euthymic mood, makes good eye contact, language grossly intact, recent and remote memory grossly intact. Discharge Data Allergies Allergy/AdvReac Type Severity Reaction Status Date / Time gabapentin Allergy Mild Emotional Verified 03/22/21 23:54 changes (makes cry) Sulfa (Sulfonamide Allergy Mild Rash Verified 03/22/21 23:54 Antibiotics) cyclobenzaprine Allergy Unknown ON [facility] MED Verified 03/22/21 23:57 LIST Consultations 03/23/21 00:44 ED Decision to Admit Stat 03/23/21 00:59 ED Decision to Admit Stat 03/23/21 04:31 Consult Gastroenterology Routine Consult Stitchdown Toe Former Routine Ordered Studies Laboratory Results WBC 9.57 K/uL (4.8-10.8) 03/25/21 08:36 RBC 2.84 M/uL (4.7-6.1) L 03/25/21 08:36 Hgb 8.7 g/dL (14.0-18.0) L 03/25/21 08:36 POC Hgb 8.5 g/dl (14.0-18.0) L 03/22/21 23:48 Hct 25.9 % (42-52) L 03/25/21 08:36 POC Hct 25 % (42-52) L 03/22/21 23:48 MCV 91.2 fL (80-100) 03/25/21 08:36 MCH 30.6 pg (25-34) 03/25/21 08:36 MCHC 33.6 g/dL (32-36) 03/25/21 08:36 RDW Std Deviation 52.6 fL (36.4-46.3) H 03/25/21 08:36 RDW Coeff of Mychal 15.9 % (11.5-14.5) H 03/25/21 08:36 Plt Count 334 K/uL (130-400) 03/25/21 08:36 MPV 9.2 fL (7.4-10.4) 03/25/21 08:36 Immature Gran % (Auto) 0.2 % 03/25/21 08:36 Neut % (Auto) 57.5 % 03/25/21 08:36 Lymph % (Auto) 25.5 % 03/25/21 08:36 Bertie % (Auto) 11.2 % 03/25/21 08:36 Eos % (Auto) 5.2 % 03/25/21 08:36 Baso % (Auto) 0.4 % 03/25/21 08:36 Neut # (Auto) 5.50 K/uL (1.4-6.5) 03/25/21 08:36 Lymph # (Auto) 2.44 K/uL (1.2-3.4) 03/25/21 08:36 Bertie # (Auto) 1.07 K/uL (0.11-0.59) H 03/25/21 08:36 Eos # (Auto) 0.50 K/uL (0-0.5) 03/25/21 08:36 Baso # (Auto) 0.04 K/uL (0-0.2) 03/25/21 08:36 Immature Gran # (Auto) 0.02 K/uL (0.00-0.02) 03/25/21 08:36 Polychromasia 1+ 03/22/21 23:37 PT 10.1 Seconds (9.0-12.0) 03/23/21 07:56 PT 10.1 Seconds (9.0-12.0) 03/23/21 07:56 POC INR > 8.0 (0.9-1.1) H* 03/22/21 23:56 INR 1.0 (0.9-1.1) 03/23/21 07:56 INR 1.0 (0.9-1.1) 03/23/21 07:56 APTT 20.9 Seconds (21.0-31.0) L 03/23/21 07:56 PTT Ratio 0.8 03/23/21 07:56 Fibrinogen 304 mg/dl (184-400) 03/23/21 07:56 POC Sodium 133 mmol/L (135-144) L 03/22/21 23:48 Sodium 139 mmol/L (136-145) 03/25/21 08:36 POC Potassium 3.2 mmol/L (3.3-5.0) L 03/22/21 23:48 Potassium 3.4 mmol/L (3.5-5.1) L 03/25/21 08:36 POC Chloride 100 mmol/L (101-112) L 03/22/21 23:48 Chloride 110 mmol/L (98-107) H 03/25/21 08:36 Carbon Dioxide 22 mmol/L (21-32) 03/25/21 08:36 POC Total CO2 18 mmol/L (24-31) L 03/22/21 23:48 Anion Gap 7.0 (3-11) 03/25/21 08:36 POC Anion Gap 19.0 mmol/L (16-25) 03/22/21 23:48 POC BUN 14 mg/dl (7-18) 03/22/21 23:48 BUN 9 mg/dl (7-18) 03/25/21 08:36 Creatinine 0.83 mg/dl (0.6-1.4) 03/25/21 08:36 POC Creatinine 1.6 mg/dl (0.6-1.3) H 03/22/21 23:48 Est Cr Clr Drug Dosing 128.7 ml/min 03/25/21 08:36 Est GFR ( Amer) 110.8 ml/min 03/25/21 08:36 Est GFR (Non-Af Amer) 95.6 ml/min 03/25/21 08:36 BUN/Creatinine Ratio 10.3 (10-20) 03/25/21 08:36 Glucose 111 mg/dl (70-99) H 03/25/21 08:36 POC Glucose 146 mg/dl (70-99) H 03/25/21 12:25 POC Glucose (other) 173 mg/dl (70-99) H 03/22/21 23:48 Estimat Average Glucose 151 mg/dl 03/23/21 07:22 Hemoglobin A1c 6.9 % (4.5-5.6) H 03/23/21 07:22 Lactate 1.3 mmol/L (0.4-2.0) 03/25/21 08:36 Calcium 6.8 mg/dl (8.5-10.1) L 03/25/21 08:36 POC Ioniz Calcium Kiran 0.93 mmol/l (1.12-1.32) L 03/22/21 23:48 Ionized Calcium 0.98 mmol/L (1.12-1.32) L 03/23/21 07:56 Magnesium 2.0 mg/dl (1.8-2.4) 03/25/21 08:36 Total Bilirubin 0.4 mg/dl (0.2-1) 03/25/21 08:36 Direct Bilirubin < 0.1 mg/dl (0-0.2) 03/22/21 23:37 AST 31 U/L (15-37) 03/25/21 08:36 ALT 32 U/L (12-78) 03/25/21 08:36 Alkaline Phosphatase 123 U/L (45-117) H 03/25/21 08:36 Troponin I < 0.015 ng/ml (0-0.045) 03/22/21 23:37 Total Protein 4.6 gm/dl (6.4-8.2) L 03/25/21 08:36 Albumin 1.3 gm/dl (3.4-5.0) L 03/25/21 08:36 Globulin 3.3 gm/dl (2.5-4.0) 03/25/21 08:36 Albumin/Globulin Ratio 0.4 (0.9-2) L 03/25/21 08:36 Lipase 101 U/L (73-393) 03/22/21 23:37 TSH 5.730 uIu/ml (0.300-4.500) H 03/22/21 23:37 Free T4 0.97 ng/dl (0.8-1.6) 03/22/21 23:37 Urine Color Dark Yellow 03/23/21 00:54 Urine Appearance Clear (Clear) 03/23/21 00:54 Urine pH 5.5 (4.5-7.5) 03/23/21 00:54 Ur Specific [place] 1.019 (1.000-1.030) 03/23/21 00:54 Urine Protein 1+ (Negative) H 03/23/21 00:54 Urine Glucose (UA) Negative (Negative) 03/23/21 00:54 Urine Ketones Trace (Negative) H 03/23/21 00:54 Urine Blood Negative (Negative) 03/23/21 00:54 Urine Nitrite Negative (Negative) 03/23/21 00:54 Urine Bilirubin Negative (Negative) 03/23/21 00:54 Urine Urobilinogen Negative (Negative) 03/23/21 00:54 Ur Leukocyte Esterase Negative (Negative) 03/23/21 00:54 Urine WBC (Auto) 5-10 /hpf (0-5) H 03/23/21 00:54 Urine RBC (Auto) 0-4 /hpf (0-4) 03/23/21 00:54 U Hyaline Cast (Auto) >30 /lpf (0-5) H 03/23/21 00:54 U Epithel Cells (Auto) >30 /lpf (0-5) H 03/23/21 00:54 Urine Bacteria (Auto) 1+ (Negative) H 03/23/21 00:54 Ur Renal Epithelial Cell Not Reportable 03/23/21 00:54 Granular Casts 1-5 /lpf (0) H 03/23/21 00:54 Urine Sperm Present (None Prsent) A 03/23/21 00:54 Nasal Screen MRSA (PCR) Negative (Negative) 03/23/21 04:00 Stl C. diff Tox B Gene Negative Cdiff Gene (Neg) 03/23/21 02:30 Ethyl Alcohol mg/dL < 3.0 mg/dl (0-3) 03/23/21 07:56 COVID-19 Eval Order Covid19 at [facility] 03/22/21 23:52 SARS-CoV-2 (PCR) POSITIVE (Negative) A* 03/22/21 23:52 Blood Type A Positive 03/22/21 23:37 Antibody Screen NEGATIVE 03/22/21 23:37 Crossmatch See Detail 03/22/21 23:37 Impressions Chest X-Ray 03/23/21 00:07 SINGLE VIEW CHEST CLINICAL HISTORY: GI bleeding. FINDINGS: An AP, portable, upright chest radiograph is compared to chest x-ray and chest CT dated 10/09/2020. The heart is enlarged. The pulmonary vasculature is noncongested. Chronic interstitial thickening similar to previous. Scarring/atelectasis is noted at the lung bases. The lungs and pleural spaces are otherwise clear. No pneumothorax is seen. The skeletal structures are osteopenic. The bony thorax is grossly intact. IMPRESSION: Cardiomegaly with no active disease in the chest. ACT 112: Negative or not required by law. Electronically signed by: Clifford Brizuela M.D. 03/23/2021 8:00 AM Abdomen/Pelvis CT 03/25/21 07:00 CT abd pelvis IV con only CLINICAL HISTORY: +leukocytosis, acute GI bleed TECHNIQUE: Helical axial images of the abdomen and pelvis were obtained and displayed. Automated dose lowering techniques and/or adjustment according to patient size were utilized for this exam. This exam was performed with intravenous contrast. COMPARISON: None available at the time of this dictation. FINDINGS: Lower chest: No acute abnormality Liver: Hepatic steatosis is noted. Gallbladder and biliary tree: The gallbladder is contracted. No intra- or extrahepatic biliary ductal dilation. Pancreas: Unremarkable, no focal lesions. Spleen: Unremarkable. Adrenals: Unremarkable. Kidneys and ureters: Unremarkable. Bladder: Limited evaluation due to underdistention. Reproductive organs: Prostatic calcifications are seen which may represent prior hemorrhage or granulomatous disease. Bowel: Wall thickening and vascular prominence is seen in the hepatic flexure and proximal transverse colon. The appendix is normal. Lymph nodes Retroperitoneal: Unremarkable. Mesenteric: Unremarkable. Pelvic: Unremarkable. Peritoneum: Normal Vessels: Atherosclerotic calcifications are seen. Abdominal wall: Left fat containing inguinal hernia. A fat-containing umbilical hernia is seen. Bones: Degenerative changes are seen. There are pars defects at L5 with resulting grade 1 anterolisthesis of L5-S1. IMPRESSION: Wall thickening and vascular prominence of the transverse colon and hepatic flexure may reflect infectious/inflammatory colitis. Otherwise no acute abnormalities. ACT 112: Negative or not required by law. Electronically signed by: Horace Mcintyre M.D. 03/25/2021 11:17 AM Hospital Course (1) Hypotension: Secondary to hemorrhagic shock secondary to L GIB in the setting of Coumadin coagulopathy Diarrheal illness secondary to recent COVID-19 illness-improved but multiple medications held at time of discharge with soft blood pressure. Patient was clinically better overall. Meds held include lisinopril, Lasix, potassium. He should continue sotalol and Toprol. (2) Anemia due to GI blood loss: Received 1 unit of blood taking Hb from 8.7 to 9.3. H/H remains stable throughout admission. Pt reports bowel movements are now brown for >24 hours but he has drips of bright red blood into the toilet on occasion or he will see this streaking on the toilet when he wipes. Denies lightheadedness at time of discharge. WBC was 15K which improved after treatment, which did not include antibiotics. No antibiotics are indicated at this time. Discussed case with GI who agrees with plan and recommends outpatient endoscopy. [facility] clinic to call patient who verbalized understanding of this plan. (3) Supratherapeutic INR: coumadin use at home, presented with INR 7 after recent home illness with covid-19. Given Kcentra and vit K on admission. INR normalized. (4) COVID: recent covid illness reported at home. He is still testing covid positive but is asymptomatic from a respiratory standpoint and is outside the window of treatment. (5) Acute renal failure: resolved with treatment. (6) Colitis: Inflammation in transverse colon. No pain on exam or reported. Afebrile. Tolerating PO, WBC has normalized and he is clinically improved. Per GI, dimitris cause of colitis is recent covid diarrhea. No antibiotics indicated at this time. Outpatient colonoscopy recommended. (7) Paroxysmal atrial flutter: s/p cardioversion historically. He has been in sinus rhythm this entire admission and remains off anticoagulation for the time being until bleeding completely resolves. Restart warfarin after 3 days of no bleeding. Pt verbaliz ed understanding. Total Time Total Time Spent Total Time Spent (In Minutes): 60 Discharge Plan Discharge Items Patient Disposition: Home - Self-Care Reason For Visit: HYPOTENSION, COVID Discharge Diagnosis: Hypotension Anemia 2/2 GI blood loss Supratherapeutic INR Colitis PAF COVID Condition on Discharge: Good Activity: Resume your previous activity Non-emergency contact: Primary Care Provider Call non-emergency contact if: you have any medication questions and your symptoms worsen Follow-up/Referrals: PCP,NO [Primary Care Provider] - Diet: Carb Consistent or DM2 Addtl Attending Provider Instructions: Please take all medicaitons as instructed. Please note multiple changes. Please hold warfarin until you see no bleeding for at least 3 days. Then ok to restart and follow-up with your anticoagulation clinic. As your blood pressure was on the low side, please hold taking lisinopril, lasix and potassium supplements. Your primary care physician (PCP) will likely restart these on follow-up. It is recommended that you follow-up with your PCP within one week of discharge. This will be to restart your medications if appropriate base on your vital signs. Also, a recheck of your blood count (CBC) is recommended. [facility] will be contacting you this week regarding a followup colonoscopy as outpatient. This is important after having GI bleeding and the finding of colitis on your CT scan. It was a pleasure taking care of you! Please call if you have any questions or problems. You can reach a [facility] hospitalist on duty at [facility] 24 hours a day by calling [phone]. Take care of yourself. Hattie Pardo DO [facility] Pending Studies at Discharge: No Stand-Alone Forms: My [facility] Medications and DC Order Prescriptions: Continued atorvastatin [Lipitor] 40 mg Tablet 40 mg PO QPM RF: 0 sotalol 80 mg Tablet 80 mg PO BID RF: 0 metoprolol succinate 25 mg Tablet Extended Release 24 Hr 25 mg PO QAM RF: 0 multivitamin Tablet 1 tab PO QAM RF: 0 metformin 1,000 mg Tablet 1,000 mg PO BID RF: 0 zinc 50 mg Tablet 50 mg PO QAM RF: 0 cholecalciferol (vitamin D3) [Vitamin D3] 1,000 unit Capsule 1,000 unit PO QAM RF: 0 Trulicity 1.5 mg/0.5 mL Pen Injector 1.5 mg SUBCUT WK RF: 0 albuterol sulfate 90 mcg/actuation Hfa Aerosol Inhaler 1 puff INHALATION DIRECTED PRN (Reason: Shortness Of Breath) RF: 0 Discontinued warfarin [Jantoven] 5 mg tablet See Rx Instructions .ROUTE .COMPLEX RF: 0 furosemide 40 mg tablet 40 mg PO DAILY RF: 0 vitamin E 100 unit Capsule 100 unit PO DAILY RF: 0 lisinopril 10 mg tablet 10 mg PO DAILY RF: 0 potassium chloride 10 mEq tablet,ER particles/crystals 10 meq PO DAILY RF: 0 Discharge Orders: Discharge Order (Routine); Ordered 03/25/21 Ordered By: Hattie Rivero/Other Patient Handouts: A1C, Managing Type 2 Diabetes Admission Data Admit Date/Time: 03/23/21 02:07 Attending Provider: Hattie Pardo Admit Provider: Segundo Kong Primary Care Provider: PCP,NO Other Providers: Segundo Kong ; Melba Pond ; Myla Levine ; Nan Varela ; Gardenia Navarro ; Jerson Carter ; Gabriel Andre ; Brooklyn Nava ; Shaun Campo ; Anita Recinos ; Mansi Farrell ; Terri Noble ; Sola Tinoco ; Danielle Valenzuela ; Igor Britt W
--- NOTE | 2021-04-02 16:31 | Coding Query ---
CODING QUERY To promote full compliance with coding requirements relating to patient care, provider participation is requested in all cases of vermin exterminator uncertainty. Please assist us with the question(s) below: Coding Question(s): Pt admitted with rectal hemorrhage hemorrhagic shock. DS states supratherapeutic INR in the setting of coumadin coagulopathy. Please document, if known or suspected, the etiology of the rectal hemorrhage. Thanks for your help! 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 sms Principal Diagnosis: "that condition established after study, to be chiefly responsible for occasioning the admission of the patient to the hospital for care." Co-Existing Principal Diagnosis: "when two or more diagnoses equally meet the criteria for principal diagnosis as determined by the circumstances of admission, diagnostic work up, and/or therapy provided, and the Alphabetic Index, Tabular List, or another coding guideline does not provide sequencing direction, any one of the diagnoses may be sequenced first." "When the physician has documented what appears to be a current diagnosis in the body of the record, but has not included the diagnosis in the final diagnostic statement, the physician should be asked whether the diagnosis should be added." (Source Coding [facility] 2 QTR90. p3-4) FORD
== END 2021-03-25 18:48 | disposition home or self-care (01) | DRG 813 ==
LOC: ED 23:18 → 1E 03-23 02:07 → SUATTDRO 03-23 02:07 → 1E 03-23 03:26 → 2W 03-23 15:29

== ENCOUNTER 2021-03-29 15:41 | Inpatient (IN) ==
--- NOTE | 2021-03-29 16:04 | Emergency Department Note ---
Impression & Plan Hypotension, Anemia, Diarrhea ED Provider Note NAME: WILBER MAYEN Jr AGE: 61 SEX: M : 1960 ARRIVES VIA: Ambulance INFORMANT: patient, ED PROVIDER(S): Clayton Navarrete MD Chief Complaint: Dizziness HPI: Patient does present with dizziness and lightheadedness which initially began yesterday but has been more constant today primarily positional in nature. The patient has had persistent diarrhea but no vomiting. The patient did have blood thinners held recently due to concern for rectal bleeding. Patient has any fevers chills chest pains or shortness of breath. Patient does have some mild lower extremity edema. The patient denies any chest pains or shortness of breath. No head or neck pain. No recent falls or trauma. Patient states that he feels as though his appetite has been appropriate. The patient is not vaccinated for Covid but did contract it back in January. Patient did have a recent admission and discharge. Does have history of atrial flutter status post cardioversion on Coumadin. Patient did have lower hemoglobins with elevated INR and hemoglobin of 8.7. The patient did receive vitamin K and Kcentra at the time of his admission. Patient did have likely hemorrhagic shock secondary to lower GI bleed secondary to Coumadin coagulopathy. He did receive 1 unit PRBCs with repeat hemoglobin 9.3. Patient had some inflammation of the transverse colon and an outpatient colonoscopy was recommended. ROS: See HPI for pertinent positives and negatives. A total of 10 systems were reviewed and otherwise negative. Past medical history: See below Surgical history: See below Social history: See below Physical Exam: GENERAL: NAD, wearing a mask, non-toxic. Pale in appearance. EYE EXAM: Normal conjunctiva. PERRL, no anisocoria and EOM's grossly intact w/o pain. NECK: Supple, no nuchal rigidity, no adenopathy, non-tender. No signs of meningismus. LUNGS: Clear to auscultation. Normal chest wall mechanics. HEART: NSR, no MRG. ABDOMEN: Abdomen soft, non-tender, normo-active bowel sounds, no masses, no rebound or guarding. BACK: No CVA TTP. SKIN: No rashes and no bruising. UPPER EXTREMITIES: Upper extremities are grossly normal. LOWER EXTREMITIES: Grossly normal, trace symmetric pretibial edema. NEURO EXAM: A&O x3, cranial nerves II-XII grossly intact, normal speech, moves all 4 extremities on command w/o issue. Differential diagnoses: Benign positional vertigo, dehydration, hypovolemia, anemia, tumor, infection, hypoglycemia, electrolyte abnormalities, cardiac sources, intracerebral event, toxicologic, neurologic, as well as other pathologies. Course: Patient was seen and evaluated the bedside. Full history physical exam was performed. EKG interpreted by me Sinus with premature beats, rate of 82, prolonged QTC, normal axis, Q waves inferiorly. T wave inversion in the lateral leads. Appears grossly unchanged from comparison EKG completed March 23, 2021. Imaging Studies: See Below Cardiac monitoring: An order was placed for continuous cardiac monitoring. The monitor shows a rate of 82 with sinus rhythm. MDM: Patient was seen due to concern for hypotension. The patient did have blood work completed along with type and screen. Patient is a white count of 12 with an initial hemoglobin of 8.8 which is not much change from before. The patient was intermittently hypotensive albeit when at rest had no complaints. The patient did receive IV fluids. The patient did have hypokalemia hypocalcemia and hypomagnesemia which were ordered for repleted. Troponin is slightly detectable at 0.06 but no active chest pains or shortness of breath. EKG does not appear changed from prior. Covid positive. I did speak with the on-call hospitalist and the patient was admitted to the medicine service by Dr. Brown. Past Med/Surg History Medical History CAD (coronary artery disease) RCA stent (2003), Left circumflex stent (2004) Diabetes mellitus, type 2 NIDDM (oral + injectable) HLD (hyperlipidemia) HTN (hypertension) Obesity Paroxysmal atrial flutter s/p cardioversion (02/2020) Restless leg syndrome Secondary polycythemia Surgical History H/O eye surgery Plugs implanted R/L eye for dry eye syndrome History of cardioversion x2 History of colonoscopy History of heart artery stent RCA (2003), Left circumflex (2004) History of tonsillectomy History of tooth extraction Family History Father Coronary heart disease Hypertension Mother Family history of diabetes mellitus Coronary heart disease Brother Diabetes Family history of diabetes mellitus Brother Family history of diabetes mellitus Other No family history of adverse response to anesthesia No known problems Social History Smoking Status: Former smoker Tobacco Type: Cigarettes Second Hand Exposure: Yes ( A CHILD); Hx Alcohol Use: No Hx Substance Use: No Preferred Language: [place] Communication Ability: Effective Alternative Energy Technician Required: No Beliefs That Will Affect Care: None marital status: Current Living Situation: Spouse current occupational status: employed Feels Safe at Home: Yes Assistive Devices: Glasses Allergies Allergies Allergy/AdvReac Type Severity Reaction Status Date / Time gabapentin Allergy Mild Emotional Verified 03/29/21 17:28 changes (makes cry) Sulfa (Sulfonamide Allergy Mild Rash Verified 03/29/21 17:28 Antibiotics) cyclobenzaprine Allergy Unknown ON [facility] MED Verified 03/29/21 17:28 LIST Home Meds Home Medications Medication Instructions Recorded Confirmed cholecalciferol (vitamin D3) 25 1,000 unit PO QAM 07/20/18 03/29/21 mcg (1,000 unit) capsule (Vitamin D3) metformin 1,000 mg tablet 1,000 mg PO BID 07/20/18 03/29/21 multivitamin 1 tab PO QAM 07/20/18 03/29/21 zinc 50 mg tablet 50 mg PO QAM 07/20/18 03/29/21 atorvastatin 40 mg tablet (Lipitor) 40 mg PO QPM 02/29/20 03/29/21 metoprolol succinate 25 mg 25 mg PO QAM 02/29/20 03/29/21 tablet,extended release 24 hr sotalol 80 mg tablet 80 mg PO BID 02/29/20 03/29/21 dulaglutide 1.5 mg/0.5 mL 1.5 mg SUBCUT WK 09/19/20 03/29/21 subcutaneous pen injector (Trulicity) albuterol sulfate 90 mcg/actuation 1 puff INHALATION DIRECTED PRN 03/22/21 03/29/21 aerosol inhaler Results & Data (ED) Vital Signs Vital Signs - 24 hr 03/29/21 16:00 03/29/21 16:01 03/29/21 16:15 Temperature 36.3 C L Temperature Source Oral Pulse Rate 83 84 84 Pulse Rate [Apical] Pulse Rate from SpO2 Sensor Pulse Rhythm [Apical] Pulse Strength [Apical] Respiratory Rate 15 16 18 Respiratory Effort / Characteristics Non-Labored Respiratory Depth Normal Respiratory Pattern Blood Pressure 74/46 L 84/51 L 90/56 L Blood Pressure [Left Arm] Blood Pressure [Right Arm] Blood Pressure Mean 55 62 67 Blood Pressure Mean [Left Arm] Blood Pressure Mean [Right Arm] Blood Pressure Position Lying Blood Pressure Position [Left Arm] Blood Pressure Position [Right Arm] Pulse Oximetry 99 97 95 Oxygen Delivery Method Room Air Sepsis Recent Fever Within 48 Hours No Sepsis New/Unexplained Change in Mental Status No Sepsis Action Taken by Nursing No Action Required 03/29/21 16:16 03/29/21 16:30 03/29/21 16:35 Temperature Temperature Source Pulse Rate 82 Pulse Rate [Apical] Pulse Rate from SpO2 Sensor Pulse Rhythm [Apical] Pulse Strength [Apical] Respiratory Rate 16 Respiratory Effort / Characteristics Respiratory Depth Respiratory Pattern Blood Pressure 91/61 L Blood Pressure [Left Arm] Blood Pressure [Right Arm] Blood Pressure Mean 71 Blood Pressure Mean [Left Arm] Blood Pressure Mean [Right Arm] Blood Pressure Position Blood Pressure Position [Left Arm] Blood Pressure Position [Right Arm] Pulse Oximetry 98 96 Oxygen Delivery Method Room Air Room Air Sepsis Recent Fever Within 48 Hours Sepsis New/Unexplained Change in Mental Status Sepsis Action Taken by Nursing 03/29/21 16:45 03/29/21 17:00 03/29/21 17:05 Temperature Temperature Source Pulse Rate Pulse Rate [Apical] 82 Pulse Rate from SpO2 Sensor 85 82 Pulse Rhythm [Apical] Pulse Strength [Apical] Respiratory Rate 16 15 Respiratory Effort / Characteristics Non-Labored Spontaneous Respiratory Depth Normal Respiratory Pattern Regular Blood Pressure Blood Pressure [Left Arm] 89/54 L Blood Pressure [Right Arm] Blood Pressure Mean Blood Pressure Mean [Left Arm] 65 Blood Pressure Mean [Right Arm] Blood Pressure Position Blood Pressure Position [Left Arm] Lying Blood Pressure Position [Right Arm] Pulse Oximetry 100 92 92 Oxygen Delivery Method Room Air Sepsis Recent Fever Within 48 Hours Sepsis New/Unexplained Change in Mental Status Sepsis Action Taken by Nursing 03/29/21 17:15 03/29/21 17:21 03/29/21 17:30 Temperature Temperature Source Pulse Rate Pulse Rate [Apical] 82 Pulse Rate from SpO2 Sensor 82 83 Pulse Rhythm [Apical] Regular Pulse Strength [Apical] Respiratory Rate 19 17 15 Respiratory Effort / Characteristics Non-Labored Spontaneous Respiratory Depth Normal Respiratory Pattern Regular Blood Pressure 87/54 L Blood Pressure [Left Arm] Blood Pressure [Right Arm] 75/44 L Blood Pressure Mean 65 Blood Pressure Mean [Left Arm] Blood Pressure Mean [Right Arm] 54 Blood Pressure Position Blood Pressure Position [Left Arm] Blood Pressure Position [Right Arm] Lying Pulse Oximetry 97 96 96 Oxygen Delivery Method Room Air Sepsis Recent Fever Within 48 Hours Sepsis New/Unexplained Change in Mental Status Sepsis Action Taken by Nursing 03/29/21 17:45 03/29/21 18:00 03/29/21 18:15 Temperature Temperature Source Pulse Rate 85 85 84 Pulse Rate [Apical] Pulse Rate from SpO2 Sensor 85 86 84 Pulse Rhythm [Apical] Pulse Strength [Apical] Respiratory Rate 16 19 14 Respiratory Effort / Characteristics Respiratory Depth Respiratory Pattern Blood Pressure Blood Pressure [Left Arm] Blood Pressure [Right Arm] Blood Pressure Mean Blood Pressure Mean [Left Arm] Blood Pressure Mean [Right Arm] Blood Pressure Position Blood Pressure Position [Left Arm] Blood Pressure Position [Right Arm] Pulse Oximetry 97 97 99 Oxygen Delivery Method Sepsis Recent Fever Within 48 Hours Sepsis New/Unexplained Change in Mental Status Sepsis Action Taken by Nursing 03/29/21 18:30 03/29/21 18:45 03/29/21 19:00 Temperature Temperature Source Pulse Rate 84 84 82 Pulse Rate [Apical] Pulse Rate from SpO2 Sensor 84 84 Pulse Rhythm [Apical] Pulse Strength [Apical] Respiratory Rate 12 20 16 Respiratory Effort / Characteristics Respiratory Depth Respiratory Pattern Blood Pressure Blood Pressure [Left Arm] Blood Pressure [Right Arm] Blood Pressure Mean Blood Pressure Mean [Left Arm] Blood Pressure Mean [Right Arm] Blood Pressure Position Blood Pressure Position [Left Arm] Blood Pressure Position [Right Arm] Pulse Oximetry 97 96 96 Oxygen Delivery Method Sepsis Recent Fever Within 48 Hours Sepsis New/Unexplained Change in Mental Status Sepsis Action Taken by Nursing 03/29/21 19:06 03/29/21 19:15 03/29/21 19:30 Temperature Temperature Source Pulse Rate 82 83 Pulse Rate [Apical] 84 Pulse Rate from SpO2 Sensor Pulse Rhythm [Apical] Regular Pulse Strength [Apical] Normal Respiratory Rate 16 21 12 Respiratory Effort / Characteristics Non-Labored Respiratory Depth Normal Respiratory Pattern Blood Pressure 77/48 L Blood Pressure [Left Arm] Blood Pressure [Right Arm] 71/51 L Blood Pressure Mean 57 Blood Pressure Mean [Left Arm] Blood Pressure Mean [Right Arm] 57 Blood Pressure Position Blood Pressure Position [Left Arm] Blood Pressure Position [Right Arm] Lying Pulse Oximetry 97 95 94 Oxygen Delivery Method Room Air Sepsis Recent Fever Within 48 Hours Sepsis New/Unexplained Change in Mental Status Sepsis Action Taken by Nursing 03/29/21 19:45 03/29/21 20:00 03/29/21 20:02 Temperature Temperature Source Pulse Rate 84 80 Pulse Rate [Apical] 81 Pulse Rate from SpO2 Sensor 80 Pulse Rhythm [Apical] Pulse Strength [Apical] Respiratory Rate 17 14 16 Respiratory Effort / Characteristics Respiratory Depth Respiratory Pattern Blood Pressure 83/52 L Blood Pressure [Left Arm] Blood Pressure [Right Arm] 88/52 L Blood Pressure Mean 62 Blood Pressure Mean [Left Arm] Blood Pressure Mean [Right Arm] 64 Blood Pressure Position Blood Pressure Position [Left Arm] Blood Pressure Position [Right Arm] Pulse Oximetry 96 99 98 Oxygen Delivery Method Room Air Sepsis Recent Fever Within 48 Hours Sepsis New/Unexplained Change in Mental Status Sepsis Action Taken by Nursing 03/29/21 20:15 03/29/21 20:30 Temperature Temperature Source Pulse Rate 84 86 Pulse Rate [Apical] Pulse Rate from SpO2 Sensor 84 Pulse Rhythm [Apical] Pulse Strength [Apical] Respiratory Rate 18 16 Respiratory Effort / Characteristics Respiratory Depth Respiratory Pattern Blood Pressure 89/56 L Blood Pressure [Left Arm] Blood Pressure [Right Arm] Blood Pressure Mean 67 Blood Pressure Mean [Left Arm] Blood Pressure Mean [Right Arm] Blood Pressure Position Blood Pressure Position [Left Arm] Blood Pressure Position [Right Arm] Pulse Oximetry 87 L Oxygen Delivery Method Sepsis Recent Fever Within 48 Hours Sepsis New/Unexplained Change in Mental Status Sepsis Action Taken by [facility] Medications Current Medication List: was personally reviewed by me Laboratory Data Attestation: I reviewed the patient's lab results. Result diagrams: 03/29/21 16:10 03/29/21 16:10 Lab Results 03/29/21 03/29/21 03/29/21 Range/Units 16:10 16:10 16:10 WBC 12.32 H (4.8-10.8) K/uL RBC 2.87 L (4.7-6.1) M/uL Hgb 8.8 L (14.0-18.0) g/dL POC Hgb (14.0-18.0) g/dl Hct 26.5 L (42-52) % POC Hct (42-52) % MCV 92.3 (80-100) fL MCH 30.7 (25-34) pg MCHC 33.2 (32-36) g/dL RDW Std Deviation 54.7 H (36.4-46.3) fL RDW Coeff of Mychal 16.4 H (11.5-14.5) % Plt Count 368 (130-400) K/uL MPV 9.9 (7.4-10.4) fL Immature Gran % (Auto) 0.4 % Neut % (Auto) 72.7 % Lymph % (Auto) 15.4 % [place] % (Auto) 9.6 % Eos % (Auto) 1.7 % Baso % (Auto) 0.2 % Neut # (Auto) 8.96 H (1.4-6.5) K/uL Lymph # (Auto) 1.90 (1.2-3.4) K/uL [place] # (Auto) 1.18 H (0.11-0.59) K/uL Eos # (Auto) 0.21 (0-0.5) K/uL Baso # (Auto) 0.02 (0-0.2) K/uL Immature Gran # (Auto) 0.05 H (0.00-0.02) K/uL PT 10.7 (9.0-12.0) Seconds INR 1.1 (0.9-1.1) APTT 23.2 (21.0-31.0) Seconds PTT Ratio 0.9 POC Sodium (135-144) mmol/L Sodium 136 (136-145) mmol/L POC Potassium (3.3-5.0) mmol/L Potassium 2.9 L (3.5-5.1) mmol/L POC Chloride (101-112) mmol/L Chloride 105 (98-107) mmol/L Carbon Dioxide 21 (21-32) mmol/L POC Total CO2 (24-31) mmol/L Anion Gap 11.0 (3-11) POC Anion Gap (16-25) mmol/L POC BUN (7-18) mg/dl BUN 11 (7-18) mg/dl Creatinine 1.32 (0.6-1.4) mg/dl POC Creatinine (0.6-1.3) mg/dl Est Cr Clr Drug Dosing 81.3 ml/min Est GFR ( Amer) 67.5 ml/min Est GFR (Non-Af Amer) 58.2 ml/min BUN/Creatinine Ratio 8.0 L (10-20) Glucose 129 H (70-99) mg/dl POC Glucose (other) (70-99) mg/dl Lactate (0.4-2.0) mmol/L Calcium 7.0 L (8.5-10.1) mg/dl POC Ioniz Calcium Kiran (1.12-1.32) mmol/l Magnesium 1.7 L (1.8-2.4) mg/dl Total Bilirubin 0.3 (0.2-1) mg/dl AST 13 L (15-37) U/L ALT 26 (12-78) U/L Alkaline Phosphatase 115 (45-117) U/L Troponin I 0.068 H* (0-0.045) ng/ml Total Protein 4.9 L (6.4-8.2) gm/dl Albumin 1.4 L (3.4-5.0) gm/dl Globulin 3.5 (2.5-4.0) gm/dl Albumin/Globulin Ratio 0.4 L (0.9-2) Procalcitonin (0-0.5) ng/ml TSH 8.830 H (0.300-4.500) uIu/ml Free T4 0.99 (0.8-1.6) ng/dl COVID-19 Eval Order SARS-CoV-2 (PCR) (Negative) Blood Type Antibody Screen 03/29/21 03/29/21 03/29/21 Range/Units 16:18 16:20 16:41 WBC (4.8-10.8) K/uL RBC (4.7-6.1) M/uL Hgb (14.0-18.0) g/dL POC Hgb 8.8 L (14.0-18.0) g/dl Hct (42-52) % POC Hct 26 L (42-52) % MCV (80-100) fL MCH (25-34) pg MCHC (32-36) g/dL RDW Std Deviation (36.4-46.3) fL RDW Coeff of Mychal (11.5-14.5) % Plt Count (130-400) K/uL MPV (7.4-10.4) fL Immature Gran % (Auto) % Neut % (Auto) % Lymph % (Auto) % [place] % (Auto) % Eos % (Auto) % Baso % (Auto) % Neut # (Auto) (1.4-6.5) K/uL Lymph # (Auto) (1.2-3.4) K/uL [place] # (Auto) (0.11-0.59) K/uL Eos # (Auto) (0-0.5) K/uL Baso # (Auto) (0-0.2) K/uL Immature Gran # (Auto) (0.00-0.02) K/uL PT (9.0-12.0) Seconds INR (0.9-1.1) APTT (21.0-31.0) Seconds PTT Ratio POC Sodium 133 L (135-144) mmol/L Sodium (136-145) mmol/L POC Potassium 2.8 L (3.3-5.0) mmol/L Potassium (3.5-5.1) mmol/L POC Chloride 100 L (101-112) mmol/L Chloride (98-107) mmol/L Carbon Dioxide (21-32) mmol/L POC Total CO2 19 L (24-31) mmol/L Anion Gap (3-11) POC Anion Gap 17.0 (16-25) mmol/L POC BUN 8 (7-18) mg/dl BUN (7-18) mg/dl Creatinine (0.6-1.4) mg/dl POC Creatinine 1.3 (0.6-1.3) mg/dl Est Cr Clr Drug Dosing ml/min Est GFR ( Amer) ml/min Est GFR (Non-Af Amer) ml/min BUN/Creatinine Ratio (10-20) Glucose (70-99) mg/dl POC Glucose (other) 131 H (70-99) mg/dl Lactate (0.4-2.0) mmol/L Calcium (8.5-10.1) mg/dl POC Ioniz Calcium Kiran 0.94 L (1.12-1.32) mmol/l Magnesium (1.8-2.4) mg/dl Total Bilirubin (0.2-1) mg/dl AST (15-37) U/L ALT (12-78) U/L Alkaline Phosphatase (45-117) U/L Troponin I (0-0.045) ng/ml Total Protein (6.4-8.2) gm/dl Albumin (3.4-5.0) gm/dl Globulin (2.5-4.0) gm/dl Albumin/Globulin Ratio (0.9-2) Procalcitonin (0-0.5) ng/ml TSH (0.300-4.500) uIu/ml Free T4 (0.8-1.6) ng/dl COVID-19 Eval Order Covid19 at [facility] SARS-CoV-2 (PCR) (Negative) Blood Type A Positive Antibody Screen NEGATIVE 03/29/21 03/29/21 03/29/21 Range/Units 16:41 17:16 17:16 WBC (4.8-10.8) K/uL RBC (4.7-6.1) M/uL Hgb (14.0-18.0) g/dL POC Hgb (14.0-18.0) g/dl Hct (42-52) % POC Hct (42-52) % MCV (80-100) fL MCH (25-34) pg MCHC (32-36) g/dL RDW Std Deviation (36.4-46.3) fL RDW Coeff of Mychal (11.5-14.5) % Plt Count (130-400) K/uL MPV (7.4-10.4) fL Immature Gran % (Auto) % Neut % (Auto) % Lymph % (Auto) % [place] % (Auto) % Eos % (Auto) % Baso % (Auto) % Neut # (Auto) (1.4-6.5) K/uL Lymph # (Auto) (1.2-3.4) K/uL [place] # (Auto) (0.11-0.59) K/uL Eos # (Auto) (0-0.5) K/uL Baso # (Auto) (0-0.2) K/uL Immature Gran # (Auto) (0.00-0.02) K/uL PT (9.0-12.0) Seconds INR (0.9-1.1) APTT (21.0-31.0) Seconds PTT Ratio POC Sodium (135-144) mmol/L Sodium (136-145) mmol/L POC Potassium (3.3-5.0) mmol/L Potassium (3.5-5.1) mmol/L POC Chloride (101-112) mmol/L Chloride (98-107) mmol/L Carbon Dioxide (21-32) mmol/L POC Total CO2 (24-31) mmol/L Anion Gap (3-11) POC Anion Gap (16-25) mmol/L POC BUN (7-18) mg/dl BUN (7-18) mg/dl Creatinine (0.6-1.4) mg/dl POC Creatinine (0.6-1.3) mg/dl Est Cr Clr Drug Dosing ml/min Est GFR ( Amer) ml/min Est GFR (Non-Af Amer) ml/min BUN/Creatinine Ratio (10-20) Glucose (70-99) mg/dl POC Glucose (other) (70-99) mg/dl Lactate 2.5 H* (0.4-2.0) mmol/L Calcium (8.5-10.1) mg/dl POC Ioniz Calcium Kiran (1.12-1.32) mmol/l Magnesium (1.8-2.4) mg/dl Total Bilirubin (0.2-1) mg/dl AST (15-37) U/L ALT (12-78) U/L Alkaline Phosphatase (45-117) U/L Troponin I (0-0.045) ng/ml Total Protein (6.4-8.2) gm/dl Albumin (3.4-5.0) gm/dl Globulin (2.5-4.0) gm/dl Albumin/Globulin Ratio (0.9-2) Procalcitonin 0.11 (0-0.5) ng/ml TSH (0.300-4.500) uIu/ml Free T4 (0.8-1.6) ng/dl COVID-19 Eval Order SARS-CoV-2 (PCR) POSITIVE A* (Negative) Blood Type Antibody Screen 03/29/21 Range/Units 18:25 WBC (4.8-10.8) K/uL RBC (4.7-6.1) M/uL Hgb (14.0-18.0) g/dL POC Hgb (14.0-18.0) g/dl Hct (42-52) % POC Hct (42-52) % MCV (80-100) fL MCH (25-34) pg MCHC (32-36) g/dL RDW Std Deviation (36.4-46.3) fL RDW Coeff of Mychal (11.5-14.5) % Plt Count (130-400) K/uL MPV (7.4-10.4) fL Immature Gran % (Auto) % Neut % (Auto) % Lymph % (Auto) % [place] % (Auto) % Eos % (Auto) % Baso % (Auto) % Neut # (Auto) (1.4-6.5) K/uL Lymph # (Auto) (1.2-3.4) K/uL [place] # (Auto) (0.11-0.59) K/uL Eos # (Auto) (0-0.5) K/uL Baso # (Auto) (0-0.2) K/uL Immature Gran # (Auto) (0.00-0.02) K/uL PT (9.0-12.0) Seconds INR (0.9-1.1) APTT (21.0-31.0) Seconds PTT Ratio POC Sodium (135-144) mmol/L Sodium (136-145) mmol/L POC Potassium (3.3-5.0) mmol/L Potassium (3.5-5.1) mmol/L POC Chloride (101-112) mmol/L Chloride (98-107) mmol/L Carbon Dioxide (21-32) mmol/L POC Total CO2 (24-31) mmol/L Anion Gap (3-11) POC Anion Gap (16-25) mmol/L POC BUN (7-18) mg/dl BUN (7-18) mg/dl Creatinine (0.6-1.4) mg/dl POC Creatinine (0.6-1.3) mg/dl Est Cr Clr Drug Dosing ml/min Est GFR ( Amer) ml/min Est GFR (Non-Af Amer) ml/min BUN/Creatinine Ratio (10-20) Glucose (70-99) mg/dl POC Glucose (other) (70-99) mg/dl Lactate 1.5 (0.4-2.0) mmol/L Calcium (8.5-10.1) mg/dl POC Ioniz Calcium Kiran (1.12-1.32) mmol/l Magnesium (1.8-2.4) mg/dl Total Bilirubin (0.2-1) mg/dl AST (15-37) U/L ALT (12-78) U/L Alkaline Phosphatase (45-117) U/L Troponin I (0-0.045) ng/ml Total Protein (6.4-8.2) gm/dl Albumin (3.4-5.0) gm/dl Globulin (2.5-4.0) gm/dl Albumin/Globulin Ratio (0.9-2) Procalcitonin (0-0.5) ng/ml TSH (0.300-4.500) uIu/ml Free T4 (0.8-1.6) ng/dl COVID-19 Eval Order SARS-CoV-2 (PCR) (Negative) Blood Type Antibody Screen Administered Medications Pantoprazole Sodium 40 mg/ (Dextrose) 100 mls @ 20 mls/hr IV Q5H BRITTANI Stop: 04/28/21 18:29 Last Admin: 03/29/21 19:18 Dose: 8 mg/hr, 20 mls/hr Documented by: [id number] Potassium Chloride (K [place] / Wtr) 10 meq in 100 mls @ 100 mls/hr IV Q1H BRITTANI Stop: 03/29/21 22:29 Last Admin: 03/29/21 19:59 Dose: 100 mls/hr Documented by: [id number] Norepinephrine Bitartrate (Levophed/D5w) 8 mg in 508 mls @ 23.851 mls/hr IV .[id number] BRITTANI; Protocol Stop: 04/28/21 19:29 Last Admin: 03/29/21 20:35 Dose: 0.05 mcg/kg/min, 23.9 mls/hr Documented by: [id number] Cosigned by: [id number] Discontinued Medications Sodium Chloride (Nss) 500 mls @ 999 mls/hr IV .Q31M BRITTANI Stop: 03/29/21 17:00 Last Infusion: 03/29/21 17:34 Dose: 0 mls/hr Documented by: [id number] Admin: 03/29/21 16:47 Dose: 999 mls/hr Documented by: [id number] Calcium Gluconate () 1,000 mg in 60 mls @ 240 mls/hr IV NOW STA Stop: 03/29/21 16:50 Last Infusion: 03/29/21 17:33 Dose: 0 mls/hr Documented by: [id number] Admin: 03/29/21 16:49 Dose: 240 mls/hr Documented by: [id number] Sodium Chloride (Nss 1000ml) 500 mls @ 999 mls/hr IV .Q31M ONE Stop: 03/29/21 17:53 Last Infusion: 03/29/21 18:08 Dose: 0 mls/hr Documented by: [id number] Admin: 03/29/21 17:27 Dose: 999 mls/hr Documented by: [id number] Pantoprazole Sodium (Protonix Bolus/Drip) 0 mls @ 1 mls/hr IV ONE STA Stop: 03/29/21 18:04 Last Admin: 03/29/21 20:00 Dose: Not Given Documented by: [id number] Pantoprazole Sodium 80 mg/ (Dextrose) 120 mls @ 400 mls/hr IV NOW ONE Stop: 03/29/21 18:20 Last Infusion: 03/29/21 18:46 Dose: 0 mls/hr Documented by: [id number] Admin: 03/29/21 18:16 Dose: 400 mls/hr Documented by: [id number] Magnesium Oxide (Magnesium Oxide 400 Mg Tab) 800 mg PO NOW STA Stop: 03/29/21 16:37 Last Admin: 03/29/21 16:48 Dose: 800 mg Documented by: [id number] Admin: 03/29/21 16:48 Dose: 800 mg Documented by: [id number] Ondansetron HCl (Ondansetron Inj 2 Mg/Ml 2 Ml Vial) 4 mg IV NOW STA Stop: 03/29/21 16:18 Last Admin: 03/29/21 16:47 Dose: 4 mg Documented by: [id number] Potassium Chloride (Potassium Chloride Crtab 20 Meq Tabcr) 40 meq PO NOW STA Stop: 03/29/21 16:37 Last Admin: 03/29/21 16:49 Dose: 40 meq Documented by: [id number] Imaging Data Radiologist's Impression: Chest X-Ray 03/29/21 16:16 XR chest 1V portable CLINICAL HISTORY: weakness TECHNIQUE: Single frontal radiograph of the chest was obtained. Comparison: Comparison is made to chest one view 03/22/2021 FINDINGS: No lines and tubes are seen. Cardiomegaly is noted. The lungs are clear. No evidence of pleural effusion or pneumothorax. IMPRESSION: No acute chest disease. ACT 112: Negative or not required by law. Electronically signed by: Horace Mcintyre M.D. 03/29/2021 4:56 PM Discharge Plan Visit Data Chief Complaint: Weakness Stated Complaint: WEAKNESS, DIZZINESS, HYPOTENSION, ED Provider: Clayton Navarrete Discharge Problem: Hypotension, Anemia, Diarrhea Patient Disposition: Admitted As Inpatient Forms Stand Alone Forms: [facility] Prescriptions Prescriptions: No Action atorvastatin [Lipitor] 40 mg Tablet 40 mg PO QPM RF: 0 sotalol 80 mg Tablet 80 mg PO BID RF: 0 metoprolol succinate 25 mg Tablet Extended Release 24 Hr 25 mg PO QAM RF: 0 multivitamin Tablet 1 tab PO QAM RF: 0 metformin 1,000 mg Tablet 1,000 mg PO BID RF: 0 zinc 50 mg Tablet 50 mg PO QAM RF: 0 cholecalciferol (vitamin D3) [Vitamin D3] 1,000 unit Capsule 1,000 unit PO QAM RF: 0 Trulicity 1.5 mg/0.5 mL Pen Injector 1.5 mg SUBCUT WK RF: 0 albuterol sulfate 90 mcg/actuation Hfa Aerosol Inhaler 1 puff INHALATION DIRECTED PRN (Reason: Shortness Of Breath) RF: 0 Referrals Referrals: PCP,NO [Physician] -
[2021-03-29] MEDS ORDERED: ONDANSETRON INJ 2 MG/ML 2 ML VIAL IV STA (16:17)
[2021-03-29 16:29] LABS: Basophils # (auto) 0.02 K/uL (0-0.2); Basophils % (auto) 0.2 %; Eosinophils # (auto) 0.21 K/uL (0-0.5); Eosinophils % (auto) 1.7 %; Hematocrit (blood only) 26.5 % (42-52); Hemoglobin 8.8 g/dL (14.0-18.0); Immature Granulocytes # (auto) 0.05 K/uL (0.00-0.02); Immature Granulocytes % (auto) 0.4 %; Lymphocytes % (auto) 15.4 %; Mean Corpuscular Hemoglobin 30.7 pg (25-34); Mean Corpuscular Hgb Conc 33.2 g/dL (32-36); Mean Corpuscular Volume 92.3 fL (80-100); Mean Platelet Volume 9.9 fL (7.4-10.4); Monocytes # (auto) 1.18 K/uL (0.11-0.59); Monocytes % (auto) 9.6 %; Neutrophils # (auto) 8.96 K/uL (1.4-6.5); Neutrophils % (auto) 72.7 %; Platelet Count 368 K/uL (130-400); RDW Coefficient of Variation 16.4 % (11.5-14.5); RDW Standard Deviation 54.7 fL (36.4-46.3); Red Blood Count 2.87 M/uL (4.7-6.1); White Blood Count 12.32 K/uL (4.8-10.8)
[2021-03-29] MEDS ORDERED: SODIUM CHLORIDE 0.9% 500 ML IV SCH (16:30)
[2021-03-29 16:31] LABS: iSTAT Creatinine 1.3 mg/dl (0.6-1.3); iSTAT Hemoglobin 8.8 g/dl (14.0-18.0); iSTAT Ionized Calcium 0.94 mmol/l (1.12-1.32); iSTAT Potassium 2.8 mmol/L (3.3-5.0)
[2021-03-29 16:34] LABS: INR 1.1 (0.9-1.1); Partial Thromboplastin Ratio 0.9; Partial Thromboplastin Time 23.2 Seconds (21.0-31.0); Prothrombin Time 10.7 Seconds (9.0-12.0)
[2021-03-29 16:35] LABS: Albumin Level 1.4 gm/dl (3.4-5.0); Creatinine Clr Calc Pharmacy 81.3 ml/min; Est GFR (African American) 67.5 ml/min; Est GFR (Non-African American) 58.2 ml/min; Magnesium 1.7 mg/dl (1.8-2.4); Potassium 2.9 mmol/L (3.5-5.1)
[2021-03-29] MEDS ORDERED: POTASSIUM CHLORIDE CRTAB 20 MEQ TABCR PO STA (16:36)
[2021-03-29] MEDS ORDERED: CALCIUM GLUCONATE 1,000 MG/60 ML BAG IV STA (16:36)
[2021-03-29] MEDS: MAGNESIUM OXIDE 400 MG TAB PO STA (16:48)
--- NOTE | 2021-03-29 16:57 | XRay Report ---
XR chest 1V portable CLINICAL HISTORY: weakness TECHNIQUE: Single frontal radiograph of the chest was obtained. Comparison: Comparison is made to chest one view 03/22/2021 FINDINGS: No lines and tubes are seen. Cardiomegaly is noted. The lungs are clear. No evidence of pleural effus ion or pneumothorax. IMPRESSION: No acute chest disease. ACT 112: Negative or not required by law. Electronically signed by: Horace Mcintyre M.D. 03/29/2021 4:56 PM
[2021-03-29 17:02] LABS: Bilirubin,Total 0.3 mg/dl (0.2-1)
[2021-03-29 17:03] LABS: Albumin Globulin Ratio 0.4 (0.9-2); Globulin 3.5 gm/dl (2.5-4.0); Thyroid Stimulating Hormone 8.83 uIu/ml (0.300-4.500); Total Protein 4.9 gm/dl (6.4-8.2); Troponin I 0.068 ng/ml (0-0.045)
[2021-03-29] MEDS ORDERED: SODIUM CHLORIDE 0.9% 1000ML 500 ML IV ONE (17:23)
[2021-03-29 17:33] LABS: T4 Free Thyroxine 0.99 ng/dl (0.8-1.6)
[2021-03-29] MEDS ORDERED: PANTOPRAZOLE BOLUS/DRIP 1 EA IV STA (18:03)
[2021-03-29] MEDS ORDERED: PANTOprazole 80 MG in DEXTROSE 5% 100 ML IV ONE (18:03)
[2021-03-29] MEDS ORDERED: ALBUMIN 25% 100 mL 25 GM/100 ML VIAL IV ONE (19:14)
[2021-03-29] MEDS: PANTOprazole 40 MG in DEXTROSE 5% 100 ML IV SCH ×2 (19:18→23:41)
[2021-03-29] MEDS ORDERED: STAT IV Infusion **Titration per Protocol STA (19:20)
--- NOTE | 2021-03-29 19:40 | History & Physical Report ---
Date of Service March 29, 2021 Assessment & Plan (1) Shock: (2) Hypotension: (3) Colitis: (4) Acute GI bleeding: (5) Lactic acidosis: Plan: This is a 61-year-old male who has a significant past medical history of atrial flutter on sotalol therapy and previously anticoagulated with warfarin until recent GI bleeding, CAD, T2DM, HTN, HLD, microalbuminuric diabetic nephropathy, secondary polycythemia who presents to ED secondary to persistent diarrhea, hematochezia and lightheadedness since discharge on 03/25. Hospitalized 03/22-03/25 secondary to hemorrhagic shock in setting of lower GI bleed due to Coumadin coagulopathy and diarrheal illness secondary to COVID-19 Represents today with persistent hypotension despite fluid resuscitation in setting of continued diarrhea, 25-30 BMs daily with bright red blood per rectum. Differential diagnosis: Hemorrhagic shock in setting of lower GI bleed hypovolemic shock in setting of profuse diarrhea, septic shock, cardiogenic shock in setting of elevated troponin. Suspect persistent lower GI bleeding in setting of acute inflammatory/infectious colitis versus colitis from Covid resulting in hemorrhagic shock with component of hypovolemic shock in setting of profuse diarrhea and poor intake. CT a/p from 03/25:IMPRESSION: Wall thickening and vascular prominence of the transverse colon and hepatic flexure may reflect infectious/inflammatory colitis. Otherwise no acute abnormalities. Admit to ICU - case discussed with Venkata HOLDEN consult home care chaplain - appreciate input, refer to consultation for further assessment and plan levophed ordered continue IVF Broad spectrum antibiotic with IV zosyn (2/2 to prolonged QTC) blood, urine culture ordered stool culture ordered consult GI NPO for now repeat LA pending, trend until < 2 Received PPI bolus in ED, continue PPI Gtt cycle H/H q6h, next @ 2200, transfuse hgb < 8 in setting of CAD (6) Elevated troponin: Plan: no CP/SOB no EKG changes likely in setting of demand ischemia due to hypotension cycle troponins, obtain ECG (7) Anemia due to GI blood loss: Plan: H&H 8.8 and 26.5, likely hemoconcentrated in setting of volume depletion Cycle hemoglobin every 6 Transfuse hemoglobin less than 8 Most recent admission received 1 unit PRBC (8) Hypokalemia: Plan: K2.8, received 40 M EQ p.o. in ED Give 10 M EQ KCl x3 IV Also supplement potassium and IV fluid Repeat at 2200, replace as needed (9) Hypomagnesemia: Plan: Magnesium 1.7 Received oral repletion in ED Given hypotension would not give additional IV Follow mag (10) COVID: Plan: First initial Covid test on 03/22, positive Symptoms started on 02/25 He remained positive today Continue isolation, discuss with infection control in a.m. if needs continued isolation (11) Atrial flutter: Plan: Rate and rhythm controlled on sotalol Hold metoprolol for now given significant hypotension Warfarin on hold in setting of lower GI bleed (12) CAD (coronary artery disease): Plan: hx of stent On atorvastatin and metoprolol as outpatient Previously was on lisinopril but discontinued secondary to hypotension (13) T2DM (type 2 diabetes mellitus): Plan: Last A1c 6.9 on 03/23, well controlled Hold Metformin Lantus/NovoLog per protocol Consult glycemic pharmacist in setting of critical illness (14) HTN (hypertension): Plan: Patient with history of hypertension On metoprolol as outpatient Prior to most recent admission was also on lisinopril 10 mg daily, furosemide 40 mg daily and potassium chloride Lisinopril, furosemide and KCl were discontinued in setting of hypotension Patient now with bilateral lower extremity swelling, right greater than left Obtain venous Dopplers Suspect hypoalbuminemia playing a component (15) Hypoalbuminemia: Plan: Albumin 1.4 Consult dietitian (16) Prolonged QT interval: Plan: QTC 531 MS Avoid QTC prolonging meds (17) DVT prophylaxis: Plan: SCD/teds Dispo: ICU due to persistent hypotension PCP: Krupa Cornejo FULL CODE Patient was seen and examined in collaboration with Dr. Brown, please see addendum History of Present Illness Chief Complaint: Persistent diarrhea, hematochezia and lightheadedness since discharge on 03/25. Primary Care Provider: Dr. Krupa Cornejo This is a 61-year-old male who has a significant past medical history of atrial flutter on sotalol therapy and previously anticoagulated with warfarin until recent GI bleeding, CAD, T2DM, HTN, HLD, microalbuminuric diabetic nephropathy, secondary polycythemia who presents to ED secondary to persistent diarrhea, hematochezia and lightheadedness since discharge on 03/25. Of significance patient was recently hospitalized 03/22-03/25. He was hospitalized secondary to hypotension in setting of hemorrhagic shock secondary to lower GI bleeding due to Coumadin coagulopathy. Initially had supratherapeutic INR of 7. This was reversed with Kcentra and vitamin K. INR normalized. He received 1 unit of PRBCs increasing hemoglobin from 8.7-9.3. His hemoglobin stayed stable throughout admission. He had persistent diarrhea that slowly improved throughout discharge. On day of discharge he did have a CT abdomen pelvis which was concerning for infectious/inflammatory colitis of transverse colon. It was felt it may be secondary to Covid diarrhea due to recent Covid diagnosis. GI was on board and a colonoscopy was recommended as outpatient. He remained off warfarin during hospitalization and was instructed to remain off warfarin until bleeding stopped for 3 days. Since being discharged on 03/25 he returns to having 25-30 liquid bloody bowel movements daily. He states blood is not associated with every bowel movement but frequently he notices bright red blood intermixed within the stool and on the toilet paper. He does not have painful bowel movements. He does complain of crampy abdominal pain that is intermittent, comes and goes, nothing makes better or worse, seems to be associated with bowel movements. In regards to his COVID-19 diagnoses he states his tested positive on 02/23. He then developed symptoms on 02/25. Symptoms were otherwise mild except for diarrhea. He presents today due to persistent diarrhea and lightheadedness. is at bedside and is concerned as he is presenting similarly to his recent admission. He has significant dizziness with position change, sitting up and standing. He did fall onto his bed today but was without injury. He also complains of increasing swelling to his bilateral lower extremities now extending to proximal thighs. states he did not have this prior to developing diarrhea. He denies any fever, chills, sweats, chest pain, shortness of breath, cough, URI symptoms, nausea, vomiting, dysuria, increased urgency or frequency with urination or melena. He does have history of hemorrhoids but feels this bleeding is different.His appetite is otherwise been decreased and his does not feel he has been drinking adequately. In ED patient remained persistently hypotensive despite approximately 2 L of IV fluid. He did meet SIRS criteria secondary to leukocytosis and persistent hy potension. There was concern for sepsis versus hypovolemic shock or hemorrhagic shock. He did have mild elevated white count at 12.32k, H&H stable at 8.8 and 26.5, potassium 2.9, BUN 11, creatinine 1.32, lactate 2.5, mag 1.7, calcium 7.0, troponin 0.068, albumin 1.4. He continues to remain positive for SARS-CoV-2. Chest x-ray was without acute abnormality. Allergies Allergy/AdvReac Type Severity Reaction Status Date / Time gabapentin Allergy Mild Emotional Verified 03/29/21 17:28 changes (makes cry) Sulfa (Sulfonamide Allergy Mild Rash Verified 03/29/21 17:28 Antibiotics) cyclobenzaprine Allergy Unknown ON [facility] MED Verified 03/29/21 17:28 LIST Home Medications Medication Instructions Recorded Confirmed Type cholecalciferol (vitamin D3) 25 1,000 unit PO QAM 07/20/18 03/29/21 History mcg (1,000 unit) capsule (Vitamin D3) metformin 1,000 mg tablet 1,000 mg PO BID 07/20/18 03/29/21 History multivitamin 1 tab PO QAM 07/20/18 03/29/21 History zinc 50 mg tablet 50 mg PO QAM 07/20/18 03/29/21 History atorvastatin 40 mg tablet (Lipitor) 40 mg PO QPM 02/29/20 03/29/21 History metoprolol succinate 25 mg 25 mg PO QAM 02/29/20 03/29/21 History tablet,extended release 24 hr sotalol 80 mg tablet 80 mg PO BID 02/29/20 03/29/21 History dulaglutide 1.5 mg/0.5 mL 1.5 mg SUBCUT WK 09/19/20 03/29/21 History subcutaneous pen injector (Trulicity) albuterol sulfate 90 mcg/actuation 1 puff INHALATION DIRECTED PRN 03/22/21 03/29/21 History aerosol inhaler Past Med/Surg History Medical History (Updated 03/30/21 @ 09:20 by Kennedy Oneil MD) Anemia CAD (coronary artery disease) RCA stent (2003), Left circumflex stent (2004) Diabetes mellitus, type 2 NIDDM (oral + injectable) HLD (hyperlipidemia) HTN (hypertension) Hypokalemia Obesity Paroxysmal atrial flutter s/p cardioversion (02/2020) Restless leg syndrome Secondary polycythemia Surgical History H/O eye surgery Plugs implanted R/L eye for dry eye syndrome History of cardioversion x2 History of colonoscopy History of heart artery stent RCA (2003), Left circumflex (2004) History of tonsillectomy History of tooth extraction Family History Father Coronary heart disease Hypertension Mother Family history of diabetes mellitus Coronary heart disease Brother Diabetes Family history of diabetes mellitus Brother Family history of diabetes mellitus Other No family history of adverse response to anesthesia No known problems Social History Smoking Status: Former smoker Tobacco Type: Cigarettes Second Hand Exposure: No; Do You Dip or Chew Tobacco: No; Tobacco Cessation Education Requested by Patient: No Hx Alcohol Use: No Hx Substance Use: No Preferred Language: Romanian Communication Ability: Unable Heat Treat Puller Required: No Beliefs That Will Affect Care: None marital status: Current Living Situation: Spouse current occupational status: employed Other Information That Helps Us Care for You: No Feels Safe at Home: Yes Safety Concerns: Feels Safe At This Time Assistive Devices: Walker Review of Systems Review of Systems: All systems reviewed & are unremarkable except as noted in HPI & below Physical Exam Physical Exam: Constitutional: WD/WN, pale, acutely ill-appearing male, vitals as above, NAD, sitting up in bed, pleasant, conversing easily Head: Normocephalic, Atraumatic Eyes: PERRL, conjunctivae normal, anicteric sclerae ENMT: external ear and nose normal, oropharynx normal Neck: trachea midline, no thyromegaly normal visual inspection Respiratory: normal respiratory effort, lungs clear to auscultation, no wheeze, rales, rhonchi. Normal insp/exp effort, no accessory muscle use Cardiovascular: RRR, no murmur, bilateral lower extremity +2 pitting edema, right greater than left, extending to right proximal thigh Vessels: no JVD or carotid bruit Chest: normal inspection of chest Abdomen: normal bowel sounds, soft, nontender, no hepatosplenomegaly Musculoskeletal: no cyanosis or clubbing, extremities motor strength 5/5 Skin: no rashes, warm and dry normal turgor Neurologic: PERRL, EOMI, accommodation nl, no face palsy, no dysarthria CN's II-XI intact bilaterally and moves all extremities Psychiatric: A+Ox3, euthymic affect Lymphatic: no cervical or axillary lymphadenopathy : deferred Results & Data Results & Data ([facility]) Vital Signs (Past 12 Hours) Vital Signs Temp Pulse Pulse Resp BP BP BP 03/29/21 19:06 84 16 71/51 L 03/29/21 18:45 84 20 03/29/21 18:30 84 12 03/29/21 18:15 84 14 03/29/21 18:00 85 19 03/29/21 17:45 85 16 03/29/21 17:30 15 87/54 L 03/29/21 17:21 82 17 75/44 L 03/29/21 17:15 19 03/29/21 17:05 82 15 89/54 L 03/29/21 17:00 16 03/29/21 16:45 03/29/21 16:35 03/29/21 16:30 82 16 91/61 L 03/29/21 16:15 84 18 90/56 L 03/29/21 16:01 36.3 C L 84 16 84/51 L 03/29/21 16:00 83 15 74/46 L Pulse Ox 03/29/21 19:06 97 03/29/21 18:45 96 03/29/21 18:30 97 03/29/21 18:15 99 03/29/21 18:00 97 03/29/21 17:45 97 03/29/21 17:30 96 03/29/21 17:21 96 03/29/21 17:15 97 03/29/21 17:05 92 03/29/21 17:00 92 03/29/21 16:45 100 03/29/21 16:35 96 03/29/21 16:30 98 03/29/21 16:15 95 03/29/21 16:01 97 03/29/21 16:00 99 Diagnostic Findings Chest X-Ray 03/29/21 16:16 XR chest 1V portable CLINICAL HISTORY: weakness TECHNIQUE: Single frontal radiograph of the chest was obtained. Comparison: Comparison is made to chest one view 03/22/2021 FINDINGS: No lines and tubes are seen. Cardiomegaly is noted. The lungs are clear. No evidence of pleural effusion or pneumothorax. IMPRESSION: No acute chest disease. ACT 112: Negative or not required by law. Electronically signed by: Horace Mcintyre M.D. 03/29/2021 4:56 PM Medications Administered Medication List Pantoprazole Sodium 40 mg/ (Dextrose) 100 mls @ 20 mls/hr IV Q5H BRITTANI Stop: 04/28/21 18:29 Last Admin: 03/29/21 19:18 Dose: 8 mg/hr, 20 mls/hr Documented by: [id number] Discontinued Medications Sodium Chloride (Nss) 500 mls @ 999 mls/hr IV .Q31M BRITTANI Stop: 03/29/21 17:00 Last Infusion: 03/29/21 17:34 Dose: 0 mls/hr Documented by: [id number] Admin: 03/29/21 16:47 Dose: 999 mls/hr Documented by: [id number] Calcium Gluconate () 1,000 mg in 60 mls @ 240 mls/hr IV NOW STA Stop: 03/29/21 16:50 Last Infusion: 03/29/21 17:33 Dose: 0 mls/hr Documented by: [id number] Admin: 03/29/21 16:49 Dose: 240 mls/hr Documented by: [id number] Sodium Chloride (Nss 1000ml) 500 mls @ 999 mls/hr IV .Q31M ONE Stop: 03/29/21 17:53 Last Infusion: 03/29/21 18:08 Dose: 0 mls/hr Documented by: [id number] Admin: 03/29/21 17:27 Dose: 999 mls/hr Documented by: [id number] Pantoprazole Sodium 80 mg/ (Dextrose) 120 mls @ 400 mls/hr IV NOW ONE Stop: 03/29/21 18:20 Last Infusion: 03/29/21 18:46 Dose: 0 mls/hr Documented by: [id number] Admin: 03/29/21 18:16 Dose: 400 mls/hr Documented by: [id number] Magnesium Oxide (Magnesium Oxide 400 Mg Tab) 800 mg PO NOW STA Stop: 03/29/21 16:37 Last Admin: 03/29/21 16:48 Dose: 800 mg Documented by: [id number] Admin: 03/29/21 16:48 Dose: 800 mg Documented by: [id number] Ondansetron HCl (Ondansetron Inj 2 Mg/Ml 2 Ml Vial) 4 mg IV NOW STA Stop: 03/29/21 16:18 Last Admin: 03/29/21 16:47 Dose: 4 mg Documented by: [id number] Potassium Chloride (Potassium Chloride Crtab 20 Meq Tabcr) 40 meq PO NOW STA Stop: 03/29/21 16:37 Last Admin: 03/29/21 16:49 Dose: 40 meq Documented by: [id number] ECG Rate (beats per minute): 82 Rhythm: normal sinus Additional Comments: QTC 531ms COVID-19 Results Results COVID-19 Adm Lab Results: RBC 2.61 M/uL (4.7-6.1) L 04/05/21 WBC 8.50 K/uL (4.8-10.8) 04/05/21 Hgb 8.6 g/dL (14.0-18.0) L 04/06/21 Hct 26.3 % (42-52) L 04/06/21 Plt Count 256 K/uL (130-400) 04/05/21 Neutrophils (%) (Auto) 67.1 % 04/01/21 Lymphocytes (%) (Auto) 17.6 % 04/01/21 Monocytes # (Auto) 1.09 K/uL (0.11-0.59) H 04/01/21 Eosinophils # (Auto) 0.50 K/uL (0-0.5) 04/01/21 Immature Granulocyte % (Auto) 0.2 % 04/01/21 Neutrophils # (Auto) 7.35 K/uL (1.4-6.5) H 04/01/21 Lymphocytes # (Auto) 1.93 K/uL (1.2-3.4) 04/01/21 Monocytes # (Auto) 1.09 K/uL (0.11-0.59) H 04/01/21 Eosinophils # (Auto) 0.50 K/uL (0-0.5) 04/01/21 Basophils # (Auto) 0.05 K/uL (0-0.2) 04/01/21 Immature Granulocyte # (Auto) 0.02 K/uL (0.00-0.02) 04/01/21 Na 138 mmol/L (136-145) 04/06/21 K 3.8 mmol/L (3.5-5.1) 04/06/21 Cl 111 mmol/L (98-107) H 04/06/21 CO2 23 mmol/L (21-32) 04/06/21 Anion Gap 4.0 (3-11) 04/06/21 BUN 3 mg/dl (7-18) L 04/06/21 Creatinine 0.50 mg/dl (0.6-1.4) L 04/06/21 BUN/Creatinine Ratio 6.1 (10-20) L 04/06/21 Glucose Level 97 mg/dl (70-99) 04/06/21 Ca 7.0 mg/dl (8.5-10.1) L 04/06/21 Phosphorus Level 2.8 mg/dl (2.5-4.9) 04/06/21 Total Bilirubin 0.2 mg/dl (0.2-1) 04/01/21 AST/SGOT 14 U/L (15-37) L 04/01/21 ALT/SGPT 25 U/L (12-78) 04/01/21 Alkaline Phosphatase 79 U/L (45-117) 04/01/21 Total Protein 3.8 gm/dl (6.4-8.2) L 04/01/21 Albumin 1.2 gm/dl (3.4-5.0) L 04/01/21 Globulin 2.6 gm/dl (2.5-4.0) 04/01/21 Albumin/Globulin Ratio 0.5 (0.9-2) L 04/01/21 Troponin I 0.053 ng/ml (0-0.045) H* 03/29/21 Procalcitonin 0.11 ng/ml (0-0.5) 03/29/21 Fibrinogen 246 mg/dl (184-400) 03/29/21 PTT 23.2 Seconds (21.0-31.0) 03/29/21 INR 1.1 (0.9-1.1) 03/29/21 COVID-19 PCR POSITIVE (Negative) A* 03/29/21 Chest X-Ray 03/29/21 Code Status & VTE Plan Code Status Full code VTE Prophylaxis Plan VTE Prophylaxis will be ordered: Yes Supervising Physician Co-Signing Physician Notes Attending Addendum: care coordinated with ALESHIA Rebeca P. please refer to her notes for full details, I agree with her notes patient seen and examined, records reviewed by myself as well on exam, patient seen resting in bed, appears weak but not in distress no chest pain, dyspnea, palpitations, dizziness has mild abdominal discomfort- generalized no other symptoms VS noted and reviewed oriented x 3 , not in distress, speaks in sentences with no effort nor accessory muscle use normal rate, regular rhythm, no murmurs clear breath sounds bilaterally non distended, soft, mild tenderness on all quadrants no bipedal edema, erythema, warmth no neuro deficits WBC 8.5 Hg 8.6 Crea 0.5 ASSESSMENT AND PLAN HYPOTENSION SECONDARY TO HYPOVOLEMIA, DIARRHEA - IV NSS ordered discussed with ICU, will need pressors - IV Zosyn GI consulted ANEMIA - monitor H&H other diagnoses and plan of care as per ALESHIA Ferrell's notes Genaro Brown MD (1) HTN (hypertension) Hypertension type: essential hypertension Qualified Code(s): I10 - Essential (primary) hypertension
[2021-03-29] MEDS: POTASSIUM CHLORIDE / WTR 10 MEQ/100 ML PLCT IV SCH ×3 (19:59→23:32)
--- NOTE | 2021-03-29 20:11 | Communication Note ---
Date of Service: March 29, 2021 Attending Addendum: care coordinated with ALESHIA Rebeca Staley please refer to her notes for full details, I agree with her notes patient seen and examined, records reviewed by myself as well on exam, patient seen resting in bed, comfortable, but appears somewhat weak reports dizziness when upright no chest pain, dyspnea, palpitations reports continuing diarrhea at home, with hematochezia no other symptoms VS noted and reviewed oriented x 3 , not in distress, speaks in sentences with no effort nor accessory muscle use dry oral mucosa normal rate, regular rhythm, no murmurs clear breath sounds bilaterally non distended, soft, nontender (+) bilateral leg edema no neuro deficits WBC 12.3 Hg 8.8 Crea 1.3 CXR no acute process ASSESSMENT AND PLAN HYPOTENSION, LIKELY SECONDARY TO HYPOVOLEMIA, FROM DIARRHEA HEMATOCHEZIA 2nd IV fluid bolus almost finished BP still systolic 70s another 500cc fluid bolus ordered Protonix drip, NPO serial H&H check echo to r/o cardiogenic component Zosyn ordered for possible infectious colitis discussed with ICU Service KAYLEE Hastings RECENT COVID INFECTION no respiratory symptoms CXR clear COVID isolation for now other diagnoses and plan of care as per ALESHIA Ferrell'eri notes Genaro Brown MD
[2021-03-29] MEDS ORDERED: ACETAMINOPHEN 325 MG TAB PO PRN (20:34)
[2021-03-29] MEDS: NOREPINEPHRINE/D5W 8 MG/508 ML BAG IV SCH (20:35)
[2021-03-29 23:04] LABS: Hemoglobin 8.5 g/dL (14.0-18.0)
[2021-03-29] MEDS ORDERED: SODIUM CHLORIDE 0.9% 250 ML IV PRN (23:07)
[2021-03-29 23:10] LABS: Fibrinogen 246 mg/dl (184-400)
[2021-03-29] MEDS ORDERED: ALBUMIN 5% 250 ML IV ONE (23:10)
[2021-03-29] MEDS ORDERED: CARBOHYDRATES FOR HYPOGLYCEMIA PO PRN (23:27)
[2021-03-29] MEDS ORDERED: GLUCOSE 40% GEL 15 GM TUBE PO PRN (23:27)
[2021-03-29] MEDS ORDERED: PROMETHAZINE HCL 12.5 MG in SODIUM CHLORIDE 0.9% 50 ML IV PRN (23:27)
[2021-03-29] MEDS ORDERED: PHARMACY GLYCEMIC MGMT CONSULT PRN (23:27)
[2021-03-29] MEDS ORDERED: GLUCOSE 10 TABS/TUBE PO PRN (23:27)
[2021-03-29] MEDS ORDERED: DEXTROSE 50% 50 ML SYRINGE IV PRN (23:27)
[2021-03-29] MEDS ORDERED: PANTOprazole 40 MG in DEXTROSE 5% 100 ML IV SCH (23:27)
[2021-03-29] MEDS ORDERED: PIPERACILL/TAZOBAC CONSULT ACTIVE PRN (23:27)
[2021-03-29] MEDS ORDERED: ICU PROTOCOL FOR HYPERGLYCEMIA PRN (23:27)
[2021-03-29] MEDS ORDERED: GLUCAGON FOR INJ 1 MG VIAL SQ PRN (23:27)
[2021-03-29] MEDS ORDERED: ALBUTEROL HFA 8 GM INHALER INH PRN (23:27)
[2021-03-29] MEDS ORDERED: CALCIUM CHLORIDE 10% 1,000 MG in SODIUM CHLORIDE 0.9% 50 ML IV STA (23:33)
--- NOTE | 2021-03-29 23:40 | Critical Care Consultation ---
Date of Consultation March 29, 2021 Assessment & Plan (1) Anemia due to GI blood loss: Impression: 61-year-old male presents to the ICU with acute GI bleed, anemia requiring blood transfusion, and hypotension currently on vasopressor support. Neuro - [facility] ICU: Negative Cardiac - Hypotensionpatient shown some improvement following fluid resuscitation but maps remain low and he was started on low-dose Levophed -Suspect most likely hypovolemic shock secondary to diarrhea/lower GI bleed -We will transfuse 1 unit RBC for now. Continue with fluid resuscitation -Albumin low, will will likely benefit from further colloid administration. -No clear evidence of sepsis but will treat empirically for now, see ID below -Cortisol within normal limits, no indication for steroids -Troponin 0 0.068, no ST elevations on EKG. Suspect demand ischemia. Trend troponin for now -We will obtain echo this a.m. -Titrate Levophed to maintain maps greater than 65 Proximal A. fibcurrently NSR on monitor -Patient's Coumadin hold held 1 week ago due to GI bleed -Continuous monitor on telemetry HLDcontinue statin Respiratory - Currently maintaining oxygen saturation on room air. No history of pulmonary disease. Lungs clear to auscultation Continuous monitoring on pulse ox GI - Acute GI bleedpatient with weeklong history of melena and heme positive stool in ED -Was recently admitted for lower GI bleed due to supratherapeutic INR which is since been stopped and normal on this admission -GI consulted follow-up recommendations regarding colonoscopy -Continue PPI drip -Transfuse as indicated -N.p.o. RENAL/LYTES - Creatinine stable at 1.3 Patient does have multiple electrolyte abnormalities in currently repleting -Continue to trend BMPs and replete electrolytes as necessary -Continue with IV fluid resuscitation Lactic acidosisresolved following fluid resuscitation - Strict I's and O's ENDO - DM type IIcurrently on oral medications, will transition to sliding scale -ICU hyperglycemic protocol HEME - Acute blood loss anemiasecondary to acute GI bleed -Hemoglobin 8.8 on admission, appears to be stable but will continue to trend every 6 hours and transfuse 1 unit RBCs for now as patient is currently symptomatic -Coags within normal limits, fibrinogen pending ID - Continue with cefepime/Flagyl in the setting of lower GI bleed with gastritis and hypotension WBC 12,000, afebrile. Pro-Unruly negative. Blood cultures, stool culture, pending LINES/IV ACCESS - Peripheral IVs DVT PROPHYLAXIS - SCDs, hold anticoagulation in the setting of GI bleed CRITICAL CARE TIME - I have personally spent 45 minutes of critical care time in the direct management of this patient. This is a life/limb threatening event. This includes time spent evaluating patient, direct bedside care, chart review, placing orders, interpretation of diagnostic studies, discussion with consultants, patient, and family members, as well as other required patient management activities. This time is exclusive of all separately billable procedures, and teaching time and separate from and in addition to any other critical care service time. (2) Hypotension: (3) Anemia: (4) Diarrhea: (5) Acute renal failure: (6) Colitis: (7) Lactic acidosis: (8) Hypokalemia: (9) Hypomagnesemia: (10) Shock: (11) Hypoalbuminemia: (12) Elevated troponin: History of Present Illness Attending Physician: Genaro Brown MD History of Present Illness Patient is a 61-year-old male with past medical history of atrial flutter who was previously anticoagulated on warfarin with recent admission a week ago for lower GI bleed requiring blood transfusion secondary to supratherapeutic INR where he received prothrombin complex. Patient also has history of CAD, DM type II, HTN, HLD diabetic neuropathy as well, and recently had COVID-19 infection about 4 weeks ago. He presents to the emergency department earlier today with complaints of weakness, dizziness while standing, hematochezia, and persistent diarrhea which she describes as up to 35 bowel movements per day which she states contain bright red blood clots. Initial hemoglobin of 8.5 in ED was consistent with discharge hemoglobin however he did display hypotension which did somewhat improve after 2 L crystalloid but still remains low. He is currently on low-dose Levophed. Lactate mildly elevated but cleared after fluid resuscitation and pro-Unruly negative. He is afebrile and no leukocytosis. Random cortisol 28 and patient did not receive steroids for COVID-19. He is pallor in color. Patient admitted to ICU due to hypotension requiring vasopressors. His repeat H&H was consistent with prior. He has significant electrolyte abnormalities which are being repleted. Will transfuse 1 unit RBCs and continue with fluid resuscitation for presumed hypovolemic shock. On arrival to the ICU the patient is alert and oriented and appears comfortable at rest. He denies currently feeling dizzy but does report dizziness with standing. He feels generally weak and complains of body aches all over which started yesterday. He has mild +1 lower extremity edema bilaterally which he states he noticed yesterday as well. Patient denies shortness of breath, cough or congestion, fevers, sore throat, headache, chest pain or palpitations, abdominal pain, nausea or vomiting. Patient to remain in ICU for further management at this time Allergies Allergy/AdvReac Type Severity Reaction Status Date / Time gabapentin Allergy Mild Emotional Verified 03/29/21 17:28 changes (makes cry) Sulfa (Sulfonamide Allergy Mild Rash Verified 03/29/21 17:28 Antibiotics) cyclobenzaprine Allergy Unknown ON [facility] MED Verified 03/29/21 17:28 LIST Home Medications Medication Instructions Recorded Confirmed Type cholecalciferol (vitamin D3) 25 1,000 unit PO QAM 07/20/18 03/29/21 History mcg (1,000 unit) capsule (Vitamin D3) metformin 1,000 mg tablet 1,000 mg PO BID 07/20/18 03/29/21 History multivitamin 1 tab PO QAM 07/20/18 03/29/21 History zinc 50 mg tablet 50 mg PO QAM 07/20/18 03/29/21 History atorvastatin 40 mg tablet (Lipitor) 40 mg PO QPM 02/29/20 03/29/21 History metoprolol succinate 25 mg 25 mg PO QAM 02/29/20 03/29/21 History tablet,extended release 24 hr sotalol 80 mg tablet 80 mg PO BID 02/29/20 03/29/21 History dulaglutide 1.5 mg/0.5 mL 1.5 mg SUBCUT WK 09/19/20 03/29/21 History subcutaneous pen injector (Trulicity) albuterol sulfate 90 mcg/actuation 1 puff INHALATION DIRECTED PRN 03/22/21 03/29/21 History aerosol inhaler Patient History Medical History (Updated 03/30/21 @ 09:20 by Kennedy Oneil MD) Anemia CAD (coronary artery disease) RCA stent (2003), Left circumflex stent (2004) Diabetes mellitus, type 2 NIDDM (oral + injectable) HLD (hyperlipidemia) HTN (hypertension) Hypokalemia Obesity Paroxysmal atrial flutter s/p cardioversion (02/2020) Restless leg syndrome Secondary polycythemia Surgical History H/O eye surgery Plugs implanted R/L eye for dry eye syndrome History of cardioversion x2 History of colonoscopy History of heart artery stent RCA (2003), Left circumflex (2004) History of tonsillectomy History of tooth extraction Family History Father Coronary heart disease Hypertension Mother Family history of diabetes mellitus Coronary heart disease Brother Diabetes Family history of diabetes mellitus Brother Family history of diabetes mellitus Other No family history of adverse response to anesthesia No known problems Social History Smoking Status: Former smoker Tobacco Type: Cigarettes Second Hand Exposure: No; Do You Dip or Chew Tobacco: No; Tobacco Cessation Education Requested by Patient: No Hx Alcohol Use: No Hx Substance Use: No Preferred Language: Bengali Communication Ability: Unable Nutrition Therapist Required: No Beliefs That Will Affect Care: None marital status: Current Living Situation: Spouse current occupational status: employed Other Information That Helps Us Care for You: No Feels Safe at Home: Yes Safety Concerns: Feels Safe At This Time Assistive Devices: Cane, Denture - Upper and Denture - Lower Review of Systems Review of Systems: All systems reviewed & are unremarkable except as noted in HPI & below Physical Exam Constitutional: + obese, cooperative and comfortable Eyes: PERRL, conjunctivae normal, anicteric sclerae ENMT: external ear and nose normal, oropharynx normal Neck: trachea midline, no thyromegaly Respiratory: normal respiratory effort, lungs clear to auscultation Cardiovascular: RRR, no murmur, no edema Heart Sounds: normal S1 and normal S2 Gastrointestinal (Abdomen): normal bowel sounds, soft, nontender, no hepatosplenomegaly Musculoskeletal: no cyanosis or clubbing, extremities motor strength 5/5 Skin: Skin color is pallor Neurologic: PERRL, EOMI, accommodation nl, no face palsy, no dysarthria Psychiatric: A+Ox3, euthymic affect Results & Data Results & Data ([facility]) Vital Signs (Past 12 Hours) Vital Signs Temp Pulse Pulse Resp BP BP BP 03/29/21 22:33 36.8 C 91 H 20 100/62 03/29/21 22:03 91 H 16 92/53 L 03/29/21 21:31 92 H 16 116/69 03/29/21 20:55 89 20 117/75 03/29/21 20:30 86 16 89/56 L 03/29/21 20:15 84 18 03/29/21 20:02 81 16 88/52 L 03/29/21 20:00 80 14 03/29/21 19:45 84 17 83/52 L 03/29/21 19:30 83 12 77/48 L 03/29/21 19:15 82 21 03/29/21 19:06 84 16 71/51 L 03/29/21 19:00 82 16 03/29/21 18:45 84 20 03/29/21 18:30 84 12 03/29/21 18:15 84 14 03/29/21 18:00 85 19 03/29/21 17:45 85 16 03/29/21 17:30 15 87/54 L 03/29/21 17:21 82 17 75/44 L 03/29/21 17:15 19 03/29/21 17:05 82 15 89/54 L 03/29/21 17:00 16 03/29/21 16:45 03/29/21 16:35 03/29/21 16:30 82 16 91/61 L 03/29/21 16:15 84 18 90/56 L 03/29/21 16:01 36.3 C L 84 16 84/51 L 03/29/21 16:00 83 15 74/46 L Pulse Ox 03/29/21 22:33 100 03/29/21 22:03 97 03/29/21 21:31 94 03/29/21 20:55 100 03/29/21 20:30 03/29/21 20:15 87 L 03/29/21 20:02 98 03/29/21 20:00 99 03/29/21 19:45 96 03/29/21 19:30 94 03/29/21 19:15 95 03/29/21 19:06 97 03/29/21 19:00 96 03/29/21 18:45 96 03/29/21 18:30 97 03/29/21 18:15 99 03/29/21 18:00 97 03/29/21 17:45 97 03/29/21 17:30 96 03/29/21 17:21 96 03/29/21 17:15 97 03/29/21 17:05 92 03/29/21 17:00 92 03/29/21 16:45 100 03/29/21 16:35 96 03/29/21 16:30 98 03/29/21 16:15 95 03/29/21 16:01 97 03/29/21 16:00 99 Coding Level of Care Code Critical Care 1st 30-74 mins Diagnoses Hypotension I95.9 Hypotension type: unspecified hypotension type Anemia D64.9 Anemia type: unspecified type Diarrhea R19.7 Diarrhea type: unspecified type Anemia due to GI blood loss D50.0 Acute renal failure N17.9 Colitis K52.9 Lactic acidosis E87.2 Hypokalemia E87.6 Hypomagnesemia E83.42 Shock R57.9 Hypoalbuminemia E88.09 Elevated troponin R77.8 (1) Anemia Anemia type: unspecified type Qualified Code(s): D64.9 - Anemia, unspecified (2) Diarrhea Diarrhea type: unspecified type Qualified Code(s): R19.7 - Diarrhea, unspecified (3) Hypotension Hypotension type: unspecified hypotension type Qualified Code(s): I95.9 - Hypotension, unspecified
[2021-03-30] MEDS ORDERED: INSULIN GLARGINE SOLOSTAR 100 UNITS/ML 3 ML PEN SC ONE
[2021-03-30] MEDS ORDERED: NSS + 20MEQ KCL 20 MEQ/1,000 ML BAG IV SCH
[2021-03-30] MEDS: SOTALOL HCL 80 MG TAB PO SCH ×3 (00:02→20:31)
[2021-03-30] MEDS: ATORVASTATIN 40 MG TAB PO SCH ×2 (00:02→20:30)
[2021-03-30] MEDS: INSULIN ASPART 100 UNITS/ML 3 ML PEN SC SCH ×5 (00:08→20:29)
[2021-03-30] MEDS: CEFEPIME 2,000 MG in SYRINGE 0 ML IV SCH ×3 (00:13→15:30)
[2021-03-30] MEDS: metroNIDAZOLE 500 MG/100 ML BAG IV SCH ×3 (00:14→15:30)
[2021-03-30 00:32] LABS: BUN Creatinine Ratio 8.3 (10-20); Calcium 6.6 mg/dl (8.5-10.1); Creatinine Clr Calc Pharmacy 88.2 ml/min; Est GFR (African American) 74.2 ml/min; Troponin I 0.053 ng/ml (0-0.045)
[2021-03-30 00:34] LABS: Potassium 4.2 mmol/L (3.5-5.1)
[2021-03-30] MEDS: NORMOSOL-R 1,000 ML IV SCH ×3 (01:19→17:14)
[2021-03-30] MEDS: PANTOprazole 40 MG in DEXTROSE 5% 100 ML IV SCH ×4 (03:56→20:30)
[2021-03-30 04:42] LABS: Basophils # (auto) 0.03 K/uL (0-0.2); Basophils % (auto) 0.3 %; Eosinophils # (auto) 0.32 K/uL (0-0.5); Eosinophils % (auto) 2.8 %; Hematocrit (blood only) 24.1 % (42-52); Hemoglobin 8.1 g/dL (14.0-18.0); Immature Granulocytes # (auto) 0.03 K/uL (0.00-0.02); Immature Granulocytes % (auto) 0.3 %; Lymphocytes # (auto) 1.86 K/uL (1.2-3.4); Lymphocytes % (auto) 16.2 %; Mean Corpuscular Hemoglobin 30.8 pg (25-34); Mean Corpuscular Hgb Conc 33.6 g/dL (32-36); Mean Corpuscular Volume 91.6 fL (80-100); Mean Platelet Volume 9.4 fL (7.4-10.4); Monocytes # (auto) 1.28 K/uL (0.11-0.59); Monocytes % (auto) 11.1 %; Neutrophils # (auto) 7.96 K/uL (1.4-6.5); Neutrophils % (auto) 69.3 %; Platelet Count 336 K/uL (130-400); RDW Coefficient of Variation 16.1 % (11.5-14.5); RDW Standard Deviation 53.8 fL (36.4-46.3); Red Blood Count 2.63 M/uL (4.7-6.1); White Blood Count 11.48 K/uL (4.8-10.8)
[2021-03-30 05:04] LABS: Albumin Level 1.7 gm/dl (3.4-5.0); Calcium 6.6 mg/dl (8.5-10.1); Creatinine Clr Calc Pharmacy 93.6 ml/min; Est GFR (African American) 79.7 ml/min; Est GFR (Non-African American) 68.8 ml/min; Magnesium 1.8 mg/dl (1.8-2.4); Phosphorus 3.6 mg/dl (2.5-4.9)
[2021-03-30 05:06] LABS: Albumin Globulin Ratio 0.6 (0.9-2); Bilirubin,Total 0.5 mg/dl (0.2-1); Globulin 2.7 gm/dl (2.5-4.0); Total Protein 4.4 gm/dl (6.4-8.2)
[2021-03-30] MEDS ORDERED: SODIUM CHLORIDE 0.9% 250 ML IV PRN (05:59)
[2021-03-30] MEDS ORDERED: ALBUMIN 5% 250 ML IV ONE (06:12)
[2021-03-30] MEDS ORDERED: CALCIUM CHLORIDE 10% 1,000 MG in SODIUM CHLORIDE 0.9% 50 ML IV ONE (06:15)
[2021-03-30 06:36] LABS: Potassium 2.8 mmol/L (3.5-5.1)
--- NOTE | 2021-03-30 06:42 | Electrocardiogram Report ---
Test Reason : Blood Pressure : / mmHG Vent. Rate : 082 BPM Atrial Rate : 082 BPM P-R Int : 166 ms QRS Dur : 100 ms QT Int : 446 ms P-R-T Axes : 072 014 076 degrees QTc Int : 521 ms Sinus rhythm with Premature ventricular complexes Low voltage QRS Inferior infarct (cited on or before 27-APR-2019) Nonspecific T wave abnormality Prolonged QT Abnormal ECG When compared with ECG of 23-MAR-2021 02:08, Premature ventricular complexes are now Present Confirmed by Bruce Sifuentes ([id number]) on 03/30/2021 6:42:28 AM Referred By: REFERRED SELF Confirmed By:Bruce Sifuentes
[2021-03-30] MEDS: ICU ELECTROLYTE REPLACEMENT PROTOCOL SCH ×2 (07:04→08:05)
--- NOTE | 2021-03-30 07:17 | Ultrasound Report ---
BILATERAL LOWER EXTREMITY VENOUS DOPPLER HISTORY: Lower extremity swelling, concern for DVT COMPARISON STUDY: None. FINDINGS: There is normal compressibility, flow, and augmentation within the bilateral lower extremit y deep venous systems. IMPRESSION: No DVT within the right or left lower extremity. ACT 112: Negative or not required by law. Electronically signed by: Kennedy Reardon M.D. 03/30/2021 7:15 AM
[2021-03-30] MEDS: MAGNESIUM SULFATE / D5W 1 GM/100 ML BAG IV SCH ×2 (08:21→10:32)
[2021-03-30] MEDS: POTASSIUM CHLORIDE / WTR 10 MEQ/100 ML PLCT IV SCH ×8 (08:21→17:14)
--- NOTE | 2021-03-30 08:55 | Gastrointestinal Consultation ---
Date of Consultation March 30, 2021 Assessment & Plan (1) Hypotension: (2) Anemia: (3) Diarrhea: This is a 61 y/o male with multiple co-morbids w/ recent admission for hematochezia, anemia, supratherapeutic INR, hypotension, COVID infection -> INR normalized and HGB remained stable and was DC'd; CT w/ colitis. Now readmitted with recurrent frequent diarrhea, hematochezia, with hypotension, leukocytosis of unclear etiology. We are asked to see him for GIB/colitis. At this time etiology of his symptoms unclear; doesn't appear to have had large GIB by history; HGB was unchanged on admission; dropped slightly overnight. He may have infectious vs inflammatory etiology. Abd soft, currently hemodynamically stable off pressors. - Hold Coumadin - Trend H&H, transfuse PRN - IVF - Please send stool for culture, Giardia, ova and parasites - Keep NPO - Tap water enema now and repeat another in 2 hours - Will plan for flexible sigmoidoscopy today to evaluate his diarrhea/hematochezia - Appreciate primary team mgmt/supportive care for co-morbidities Thank you for allowing us to participate in the care of this patient. Please call with any acute changes, questions or concerns. Please see addendum below with additional recommendation from my supervising physician. Supervising Physician Co-Signing Physician Notes I performed a history and physical examination of the patient today, including specifically on physical exam - soft abdomen. I have discussed the patient's management with the advanced practitioner. Please refer to the nurse practitioner's note for the documented findings and plan of care. Bedside Flex sig today in view of persistent bloody diarrhea. Correct Potassium. History of Present Illness Reason for Consultation: persistent colitis, GIB Requesting Physician: Rebeca Staley PA-C Attending Physician: Chasidy Whiting MD History of Present Illness This is a 61-year-old male patient with a PMHx CAD s/p stent, atrial flutter on chronic anticoagulation with Coumadin, HTN, HLD and others. Recently admitted w/ hematochezia/diarrhea, dizziness, hypotension, COVID infection, anemia, in the setting of supratherapeutic INR. Hematochezia resolved; HGB was stable, we were consulted and recommended OP colonoscopy. On day of discharge he did have a CTAP concerning for infectious/inflammatory colitis of transverse colon. It was felt it may be secondary to Covid diarrhea. He was DC'd but returned to the hospital yesterday with recurrent frequent diarrhea/hematochezia, crampy abd pain, lightheadedness. Was having up to 25 small volume brown loose stools at home; mixed with streaks of blood. No clots or melena, hematemesis. Found to be hypotensive w/ HGB 8.8 (no significant change from when he was DC'd), leukocytosis, hypokalemia, elevated lactate, normal procal. Overnight HGB 8.1, BUN not elevated. He was requiring pressor support however currently normotensive off pressors. He remains positive for COVID but denies SOB, cough, CP. CXR neg. C diff neg. Blood and stool cx pending. Currently 1 unit pRBC hanging and is on IV ABX. Currently denies abd pain, n/v, hematemesis, heartburn, dysphagia, melena, sy ncope, dizziness, fever, chills Pt denies fam hx GI malignancy including colon CA. Colonoscopy [address] Nava:The entire examined colon is normal except for large hemorrhoids Allergies Allergy/AdvReac Type Severity Reaction Status Date / Time gabapentin Allergy Mild Emotional Verified 03/29/21 17:28 changes (makes cry) Sulfa (Sulfonamide Allergy Mild Rash Verified 03/29/21 17:28 Antibiotics) cyclobenzaprine Allergy Unknown ON [facility] MED Verified 03/29/21 17:28 LIST Home Medications Medication Instructions Recorded Confirmed Type cholecalciferol (vitamin D3) 25 1,000 unit PO QAM 07/20/18 03/29/21 History mcg (1,000 unit) capsule (Vitamin D3) metformin 1,000 mg tablet 1,000 mg PO BID 07/20/18 03/29/21 History multivitamin 1 tab PO QAM 07/20/18 03/29/21 History zinc 50 mg tablet 50 mg PO QAM 07/20/18 03/29/21 History atorvastatin 40 mg tablet (Lipitor) 40 mg PO QPM 02/29/20 03/29/21 History metoprolol succinate 25 mg 25 mg PO QAM 02/29/20 03/29/21 History tablet,extended release 24 hr sotalol 80 mg tablet 80 mg PO BID 02/29/20 03/29/21 History dulaglutide 1.5 mg/0.5 mL 1.5 mg SUBCUT WK 09/19/20 03/29/21 History subcutaneous pen injector (Trulicity) albuterol sulfate 90 mcg/actuation 1 puff INHALATION DIRECTED PRN 03/22/21 03/29/21 History aerosol inhaler Patient History Medical History (Updated 03/30/21 @ 09:20 by Kennedy Oneil MD) Anemia CAD (coronary artery disease) RCA stent (2003), Left circumflex stent (2004) Diabetes mellitus, type 2 NIDDM (oral + injectable) HLD (hyperlipidemia) HTN (hypertension) Hypokalemia Obesity Paroxysmal atrial flutter s/p cardioversion (02/2020) Restless leg syndrome Secondary polycythemia Surgical History H/O eye surgery Plugs implanted R/L eye for dry eye syndrome History of cardioversion x2 History of colonoscopy History of heart artery stent RCA (2003), Left circumflex (2004) History of tonsillectomy History of tooth extraction Family History Father Coronary heart disease Hypertension Mother Family history of diabetes mellitus Coronary heart disease Brother Diabetes Family history of diabetes mellitus Brother Family history of diabetes mellitus Other No family history of adverse response to anesthesia No known problems Social History Smoking Status: Former smoker Tobacco Type: Cigarettes Second Hand Exposure: No; Do You Dip or Chew Tobacco: No; Tobacco Cessation Education Requested by Patient: No Hx Alcohol Use: No Hx Substance Use: No Preferred Language: Greek Communication Ability: Unable 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 Beliefs That Will Affect Care: None marital status: Current Living Situation: Spouse current occupational status: employed Other Information That Helps Us Care for You: No Feels Safe at Home: Yes Safety Concerns: Feels Safe At This Time Assistive Devices: Cane, Denture - Upper and Denture - Lower Review of Systems Review of Systems: All systems reviewed & are unremarkable except as noted in Subjective Physical Exam Constitutional: WD/WN, vitals as above + slightly pale Eyes: sclera anicteric Respiratory: normal respiratory effort, lungs clear to auscultation Cardiovascular: Rate/Rhythm: regular rate and regular rhythm mild leg edema Gastrointestinal (Abdomen): normal bowel sounds, soft, nontender, no hepatosplenomegaly Skin: no rashes, warm and dry Psychiatric: A+Ox3, euthymic affect Results & Data ([facility]) Vital Signs (Past 12 Hours) Vital Signs Temp Pulse Pulse Resp BP BP Pulse Ox 03/30/21 08:28 36.5 C 80 17 112/59 L 97 03/30/21 08:25 36.5 C 80 17 112/59 L 97 03/30/21 06:00 23 139/54 L 99 03/30/21 05:30 77 16 98 03/30/21 05:00 82 17 118/66 97 03/30/21 04:30 36.4 C L 76 16 117/64 97 03/30/21 04:00 36.4 C L 81 17 117/64 99 03/30/21 03:30 108 H 17 98 03/30/21 03:00 36.4 C L 88 19 111/65 95 03/30/21 02:30 36.4 C L 90 19 114/62 98 03/30/21 02:15 36.3 C L 85 17 99 03/30/21 02:00 36.3 C L 90 17 110/64 98 03/30/21 01:45 36.3 C L 94 H 21 98 03/30/21 01:30 36.3 C L 87 16 109/64 98 03/30/21 01:15 36.5 C 90 17 106/64 99 03/30/21 01:00 36.5 C 95 H 16 119/71 98 03/30/21 00:45 36.4 C L 92 H 13 114/67 98 03/30/21 00:30 95 H 17 99 03/30/21 00:15 96 H 18 100 03/30/21 00:00 94 H 17 98 03/29/21 23:45 140 H 19 99 03/29/21 23:30 89 21 98 03/29/21 22:33 36.8 C 91 H 20 100/62 100 03/29/21 22:03 91 H 16 92/53 L 97 03/29/21 21:31 92 H 16 116/69 94 03/29/21 20:55 89 20 117/75 100 Laboratory Results 03/30/21 03/30/2103/30/21 Range/Units 05:21 04:20 04:20 WBC (4.8-10.8) K/uL RBC (4.7-6.1) M/uL Hgb (14.0-18.0) g/dL POC Hgb (14.0-18.0) g/dl Hct (42-52) % POC Hct (42-52) % MCV (80-100) fL MCH (25-34) pg MCHC (32-36) g/dL RDW Std Deviation (36.4-46.3) fL RDW Coeff of Mychal (11.5-14.5) % Plt Count (130-400) K/uL MPV (7.4-10.4) fL Immature Gran % (Auto) % Neut % (Auto) % Lymph % (Auto) % [place] % (Auto) % Eos % (Auto) % Baso % (Auto) % Neut # (Auto) (1.4-6.5) K/uL Lymph # (Auto) (1.2-3.4) K/uL [place] # (Auto) (0.11-0.59) K/uL Eos # (Auto) (0-0.5) K/uL Baso # (Auto) (0-0.2) K/uL Immature Gran # (Auto) (0.00-0.02) K/uL PT (9.0-12.0) Seconds INR (0.9-1.1) APTT (21.0-31.0) Seconds PTT Ratio Fibrinogen (184-400) mg/dl POC Sodium (135-144) mmol/L Sodium 137 (136-145) mmol/L POC Potassium (3.3-5.0) mmol/L Potassium 2.8 L D (3.5-5.1) mmol/L POC Chloride (101-112) mmol/L Chloride 108 H (98-107) mmol/L Carbon Dioxide 22 (21-32) mmol/L POC Total CO2 (24-31) mmol/L Anion Gap 7.0 (3-11) POC Anion Gap (16-25) mmol/L POC BUN (7-18) mg/dl BUN 9 (7-18) mg/dl Creatinine 1.15 (0.6-1.4) mg/dl POC Creatinine (0.6-1.3) mg/dl Est Cr Clr Drug Dosing 93.6 ml/min Est GFR ( Amer) 79.7 ml/min Est GFR (Non-Af Amer) 68.8 ml/min BUN/Creatinine Ratio 8.0 L (10-20) Glucose 135 H (70-99) mg/dl POC Glucose 129 H (70-99) mg/dl POC Glucose (other) (70-99) mg/dl Lactate (0.4-2.0) mmol/L Calcium 6.6 L (8.5-10.1) mg/dl POC Ioniz Calcium Kiran (1.12-1.32) mmol/l Ionized Calcium 0.94 L (1.12-1.32) mmol/L Phosphorus 3.6 (2.5-4.9) mg/dl Magnesium 1.8 (1.8-2.4) mg/dl Total Bilirubin 0.5 (0.2-1) mg/dl AST 11 L (15-37) U/L ALT 20 (12-78) U/L Alkaline Phosphatase 90 (45-117) U/L Troponin I (0-0.045) ng/ml Total Protein 4.4 L (6.4-8.2) gm/dl Albumin 1.7 L (3.4-5.0) gm/dl Globulin 2.7 (2.5-4.0) gm/dl Albumin/Globulin Ratio 0.6 L (0.9-2) Procalcitonin (0-0.5) ng/ml TSH (0.300-4.500) uIu/ml Free T4 (0.8-1.6) ng/dl Random Cortisol mcg/dl Specimen Hemolysis Nasal Screen MRSA (PCR) (Negative) Stl C. diff Tox B Gene (Neg) C. difficile Tox B Gene COVID-19 Eval Order SARS-CoV-2 (PCR) (Negative) Blood Type Antibody Screen Crossmatch 03/30/21 03/29/21 03/29/21 Range/Units 04:20 23:55 23:14 WBC 11.48 H (4.8-10.8) K/uL RBC 2.63 L (4.7-6.1) M/uL Hgb 8.1 L (14.0-18.0) g/dL POC Hgb (14.0-18.0) g/dl Hct 24.1 L (42-52) % POC Hct (42-52) % MCV 91.6 (80-100) fL MCH 30.8 (25-34) pg MCHC 33.6 (32-36) g/dL RDW Std Deviation 53.8 H (36.4-46.3) fL RDW Coeff of Mychal 16.1 H (11.5-14.5) % Plt Count 336 (130-400) K/uL MPV 9.4 (7.4-10.4) fL Immature Gran % (Auto) 0.3 % Neut % (Auto) 69.3 % Lymph % (Auto) 16.2 % [place] % (Auto) 11.1 % Eos % (Auto) 2.8 % Baso % (Auto) 0.3 % Neut # (Auto) 7.96 H (1.4-6.5) K/uL Lymph # (Auto) 1.86 (1.2-3.4) K/uL [place] # (Auto) 1.28 H (0.11-0.59) K/uL Eos # (Auto) 0.32 (0-0.5) K/uL Baso # (Auto) 0.03 (0-0.2) K/uL Immature Gran # (Auto) 0.03 H (0.00-0.02) K/uL PT (9.0-12.0) Seconds INR (0.9-1.1) APTT (21.0-31.0) Seconds PTT Ratio Fibrinogen (184-400) mg/dl POC Sodium (135-144) mmol/L Sodium (136-145) mmol/L POC Potassium (3.3-5.0) mmol/L Potassium (3.5-5.1) mmol/L POC Chloride (101-112) mmol/L Chloride (98-107) mmol/L Carbon Dioxide (21-32) mmol/L POC Total CO2 (24-31) mmol/L Anion Gap (3-11) POC Anion Gap (16-25) mmol/L POC BUN (7-18) mg/dl BUN (7-18) mg/dl Creatinine (0.6-1.4) mg/dl POC Creatinine (0.6-1.3) mg/dl Est Cr Clr Drug Dosing ml/min Est GFR ( Amer) ml/min Est GFR (Non-Af Amer) ml/min BUN/Creatinine Ratio (10-20) Glucose (70-99) mg/dl POC Glucose 152 H (70-99) mg/dl POC Glucose (other) (70-99) mg/dl Lactate (0.4-2.0) mmol/L Calcium (8.5-10.1) mg/dl POC Ioniz Calcium Kiran (1.12-1.32) mmol/l Ionized Calcium (1.12-1.32) mmol/L Phosphorus (2.5-4.9) mg/dl Magnesium (1.8-2.4) mg/dl Total Bilirubin (0.2-1) mg/dl AST (15-37) U/L ALT (12-78) U/L Alkaline Phosphatase (45-117) U/L Troponin I (0-0.045) ng/ml Total Protein (6.4-8.2) gm/dl Albumin (3.4-5.0) gm/dl Globulin (2.5-4.0) gm/dl Albumin/Globulin Ratio (0.9-2) Procalcitonin (0-0.5) ng/ml TSH (0.300-4.500) uIu/ml Free T4 (0.8-1.6) ng/dl Random Cortisol mcg/dl Specimen Hemolysis Nasal Screen MRSA (PCR) (Negative) Stl C. diff Tox B Gene Negative Cdiff Gene (Neg) C. difficile Tox B Gene COVID-19 Eval Order SARS-CoV-2 (PCR) (Negative) Blood Type Antibody Screen Crossmatch 03/29/21 03/29/21 03/29/21 Range/Units 23:10 22:44 22:32 WBC (4.8-10.8) K/uL RBC (4.7-6.1) M/uL Hgb 8.5 L (14.0-18.0) g/dL POC Hgb (14.0-18.0) g/dl Hct 25.0 L (42-52) % POC Hct (42-52) % MCV (80-100) fL MCH (25-34) pg MCHC (32-36) g/dL RDW Std Deviation (36.4-46.3) fL RDW Coeff of Mychal (11.5-14.5) % Plt Count (130-400) K/uL MPV (7.4-10.4) fL Immature Gran % (Auto) % Neut % (Auto) % Lymph % (Auto) % [place] % (Auto) % Eos % (Auto) % Baso % (Auto) % Neut # (Auto) (1.4-6.5) K/uL Lymph # (Auto) (1.2-3.4) K/uL [place] # (Auto) (0.11-0.59) K/uL Eos # (Auto) (0-0.5) K/uL Baso # (Auto) (0-0.2) K/uL Immature Gran # (Auto) (0.00-0.02) K/uL PT (9.0-12.0) Seconds INR (0.9-1.1) APTT (21.0-31.0) Seconds PTT Ratio Fibrinogen 246 (184-400) mg/dl POC Sodium (135-144) mmol/L Sodium (136-145) mmol/L POC Potassium (3.3-5.0) mmol/L Potassium (3.5-5.1) mmol/L POC Chloride (101-112) mmol/L Chloride (98-107) mmol/L Carbon Dioxide (21-32) mmol/L POC Total CO2 (24-31) mmol/L Anion Gap (3-11) POC Anion Gap (16-25) mmol/L POC BUN (7-18) mg/dl BUN (7-18) mg/dl Creatinine (0.6-1.4) mg/dl POC Creatinine (0.6-1.3) mg/dl Est Cr Clr Drug Dosing ml/min Est GFR ( Amer) ml/min Est GFR (Non-Af Amer) ml/min BUN/Creatinine Ratio (10-20) Glucose (70-99) mg/dl POC Glucose (70-99) mg/dl POC Glucose (other) (70-99) mg/dl Lactate (0.4-2.0) mmol/L Calcium (8.5-10.1) mg/dl POC Ioniz Calcium Kiran (1.12-1.32) mmol/l Ionized Calcium (1.12-1.32) mmol/L Phosphorus (2.5-4.9) mg/dl Magnesium (1.8-2.4) mg/dl Total Bilirubin (0.2-1) mg/dl AST (15-37) U/L ALT (12-78) U/L Alkaline Phosphatase (45-117) U/L Troponin I (0-0.045) ng/ml Total Protein (6.4-8.2) gm/dl Albumin (3.4-5.0) gm/dl Globulin (2.5-4.0) gm/dl Albumin/Globulin Ratio (0.9-2) Procalcitonin (0-0.5) ng/ml TSH (0.300-4.500) uIu/ml Free T4 (0.8-1.6) ng/dl Random Cortisol mcg/dl Specimen Hemolysis Nasal Screen MRSA (PCR) (Negative) Stl C. diff Tox B Gene (Neg) C. difficile Tox B Gene Cancelled COVID-19 Eval Order SARS-CoV-2 (PCR) (Negative) Blood Type Antibody Screen Crossmatch 03/29/21 03/29/21 03/29/21 Range/Units 22:32 20:38 20:30 WBC (4.8-10.8) K/uL RBC (4.7-6.1) M/uL Hgb Cancelled (14.0-18.0) g/dL POC Hgb (14.0-18.0) g/dl Hct Cancelled (42-52) % POC Hct (42-52) % MCV (80-100) fL MCH (25-34) pg MCHC (32-36) g/dL RDW Std Deviation (36.4-46.3) fL RDW Coeff of Mychal (11.5-14.5) % Plt Count (130-400) K/uL MPV (7.4-10.4) fL Immature Gran % (Auto) % Neut % (Auto) % Lymph % (Auto) % [place] % (Auto) % Eos % (Auto) % Baso % (Auto) % Neut # (Auto) (1.4-6.5) K/uL Lymph # (Auto) (1.2-3.4) K/uL [place] # (Auto) (0.11-0.59) K/uL Eos # (Auto) (0-0.5) K/uL Baso # (Auto) (0-0.2) K/uL Immature Gran # (Auto) (0.00-0.02) K/uL PT (9.0-12.0) Seconds INR (0.9-1.1) APTT (21.0-31.0) Seconds PTT Ratio Fibrinogen (184-400) mg/dl POC Sodium (135-144) mmol/L Sodium 136 (136-145) mmol/L POC Potassium (3.3-5.0) mmol/L Potassium 4.2 D (3.5-5.1) mmol/L POC Chloride (101-112) mmol/L Chloride 108 H (98-107) mmol/L Carbon Dioxide 21 (21-32) mmol/L POC Total CO2 (24-31) mmol/L Anion Gap 7.0 (3-11) POC Anion Gap (16-25) mmol/L POC BUN (7-18) mg/dl BUN 10 (7-18) mg/dl Creatinine 1.22 (0.6-1.4) mg/dl POC Creatinine (0.6-1.3) mg/dl Est Cr Clr Drug Dosing 88.2 ml/min Est GFR ( Amer) 74.2 ml/min Est GFR (Non-Af Amer) 64.0 ml/min BUN/Creatinine Ratio 8.3 L (10-20) Glucose 142 H (70-99) mg/dl POC Glucose (70-99) mg/dl POC Glucose (other) (70-99) mg/dl Lactate (0.4-2.0) mmol/L Calcium 6.6 L (8.5-10.1) mg/dl POC Ioniz Calcium Kiran (1.12-1.32) mmol/l Ionized Calcium (1.12-1.32) mmol/L Phosphorus (2.5-4.9) mg/dl Magnesium (1.8-2.4) mg/dl Total Bilirubin (0.2-1) mg/dl AST (15-37) U/L ALT (12-78) U/L Alkaline Phosphatase (45-117) U/L Troponin I 0.053 H* (0-0.045) ng/ml Total Protein (6.4-8.2) gm/dl Albumin (3.4-5.0) gm/dl Globulin (2.5-4.0) gm/dl Albumin/Globulin Ratio (0.9-2) Procalcitonin (0-0.5) ng/ml TSH (0.300-4.500) uIu/ml Free T4 (0.8-1.6) ng/dl Random Cortisol mcg/dl Specimen Hemolysis Nasal Screen MRSA (PCR) Negative (Negative) Stl C. diff Tox B Gene (Neg) C. difficile Tox B Gene COVID-19 Eval Order SARS-CoV-2 (PCR) (Negative) Blood Type Antibody Screen Crossmatch 03/29/21 03/29/21 03/29/21 Range/Units 18:25 17:16 17:16 WBC (4.8-10.8) K/uL RBC (4.7-6.1) M/uL Hgb (14.0-18.0) g/dL POC Hgb (14.0-18.0) g/dl Hct (42-52) % POC Hct (42-52) % MCV (80-100) fL MCH (25-34) pg MCHC (32-36) g/dL RDW Std Deviation (36.4-46.3) fL RDW Coeff of Mychal (11.5-14.5) % Plt Count (130-400) K/uL MPV (7.4-10.4) fL Immature Gran % (Auto) % Neut % (Auto) % Lymph % (Auto) % [place] % (Auto) % Eos % (Auto) % Baso % (Auto) % Neut # (Auto) (1.4-6.5) K/uL Lymph # (Auto) (1.2-3.4) K/uL [place] # (Auto) (0.11-0.59) K/uL Eos # (Auto) (0-0.5) K/uL Baso # (Auto) (0-0.2) K/uL Immature Gran # (Auto) (0.00-0.02) K/uL PT (9.0-12.0) Seconds INR (0.9-1.1) APTT (21.0-31.0) Seconds PTT Ratio Fibrinogen (184-400) mg/dl POC Sodium (135-144) mmol/L Sodium (136-145) mmol/L POC Potassium (3.3-5.0) mmol/L Potassium (3.5-5.1) mmol/L POC Chloride (101-112) mmol/L Chloride (98-107) mmol/L Carbon Dioxide (21-32) mmol/L POC Total CO2 (24-31) mmol/L Anion Gap (3-11) POC Anion Gap (16-25) mmol/L POC BUN (7-18) mg/dl BUN (7-18) mg/dl Creatinine (0.6-1.4) mg/dl POC Creatinine (0.6-1.3) mg/dl Est Cr Clr Drug Dosing ml/min Est GFR ( Amer) ml/min Est GFR (Non-Af Amer) ml/min BUN/Creatinine Ratio (10-20) Glucose (70-99) mg/dl POC Glucose (70-99) mg/dl POC Glucose (other) (70-99) mg/dl Lactate 1.5 (0.4-2.0) mmol/L Calcium (8.5-10.1) mg/dl POC Ioniz Calcium Kiran (1.12-1.32) mmol/l Ionized Calcium (1.12-1.32) mmol/L Phosphorus (2.5-4.9) mg/dl Magnesium (1.8-2.4) mg/dl Total Bilirubin (0.2-1) mg/dl AST (15-37) U/L ALT (12-78) U/L Alkaline Phosphatase (45-117) U/L Troponin I (0-0.045) ng/ml Total Protein (6.4-8.2) gm/dl Albumin (3.4-5.0) gm/dl Globulin (2.5-4.0) gm/dl Albumin/Globulin Ratio (0.9-2) Procalcitonin 0.11 (0-0.5) ng/ml TSH (0.300-4.500) uIu/ml Free T4 (0.8-1.6) ng/dl Random Cortisol 26.94 mcg/dl Specimen Hemolysis Nasal Screen MRSA (PCR) (Negative) Stl C. diff Tox B Gene (Neg) C. difficile Tox B Gene COVID-19 Eval Order SARS-CoV-2 (PCR) (Negative) Blood Type Antibody Screen Crossmatch 03/29/21 03/29/21 03/29/21 Range/Units 17:16 16:41 16:41 WBC (4.8-10.8) K/uL RBC (4.7-6.1) M/uL Hgb (14.0-18.0) g/dL POC Hgb (14.0-18.0) g/dl Hct (42-52) % POC Hct (42-52) % MCV (80-100) fL MCH (25-34) pg MCHC (32-36) g/dL RDW Std Deviation (36.4-46.3) fL RDW Coeff of Mychal (11.5-14.5) % Plt Count (130-400) K/uL MPV (7.4-10.4) fL Immature Gran % (Auto) % Neut % (Auto) % Lymph % (Auto) % [place] % (Auto) % Eos % (Auto) % Baso % (Auto) % Neut # (Auto) (1.4-6.5) K/uL Lymph # (Auto) (1.2-3.4) K/uL [place] # (Auto) (0.11-0.59) K/uL Eos # (Auto) (0-0.5) K/uL Baso # (Auto) (0-0.2) K/uL Immature Gran # (Auto) (0.00-0.02) K/uL PT (9.0-12.0) Seconds INR (0.9-1.1) APTT (21.0-31.0) Seconds PTT Ratio Fibrinogen (184-400) mg/dl POC Sodium (135-144) mmol/L Sodium (136-145) mmol/L POC Potassium (3.3-5.0) mmol/L Potassium (3.5-5.1) mmol/L POC Chloride (101-112) mmol/L Chloride (98-107) mmol/L Carbon Dioxide (21-32) mmol/L POC Total CO2 (24-31) mmol/L Anion Gap (3-11) POC Anion Gap (16-25) mmol/L POC BUN (7-18) mg/dl BUN (7-18) mg/dl Creatinine (0.6-1.4) mg/dl POC Creatinine (0.6-1.3) mg/dl Est Cr Clr Drug Dosing ml/min Est GFR ( Amer) ml/min Est GFR (Non-Af Amer) ml/min BUN/Creatinine Ratio (10-20) Glucose (70-99) mg/dl POC Glucose (70-99) mg/dl POC Glucose (other) (70-99) mg/dl Lactate 2.5 H* (0.4-2.0) mmol/L Calcium (8.5-10.1) mg/dl POC Ioniz Calcium Kiran (1.12-1.32) mmol/l Ionized Calcium (1.12-1.32) mmol/L Phosphorus (2.5-4.9) mg/dl Magnesium (1.8-2.4) mg/dl Total Bilirubin (0.2-1) mg/dl AST (15-37) U/L ALT (12-78) U/L Alkaline Phosphatase (45-117) U/L Troponin I (0-0.045) ng/ml Total Protein (6.4-8.2) gm/dl Albumin (3.4-5.0) gm/dl Globulin (2.5-4.0) gm/dl Albumin/Globulin Ratio (0.9-2) Procalcitonin (0-0.5) ng/ml TSH (0.300-4.500) uIu/ml Free T4 (0.8-1.6) ng/dl Random Cortisol mcg/dl Specimen Hemolysis Nasal Screen MRSA (PCR) (Negative) Stl C. diff Tox B Gene (Neg) C. difficile Tox B Gene COVID-19 Eval Order Covid19 at [facility] SARS-CoV-2 (PCR) POSITIVE A* (Negative) Blood Type Antibody Screen Crossmatch 03/29/21 03/29/21 03/29/21 Range/Units 16:20 16:18 16:10 WBC (4.8-10.8) K/uL RBC (4.7-6.1) M/uL Hgb (14.0-18.0) g/dL POC Hgb 8.8 L (14.0-18.0) g/dl Hct (42-52) % POC Hct 26 L (42-52) % MCV (80-100) fL MCH (25-34) pg MCHC (32-36) g/dL RDW Std Deviation (36.4-46.3) fL RDW Coeff of Mychal (11.5-14.5) % Plt Count (130-400) K/uL MPV (7.4-10.4) fL Immature Gran % (Auto) % Neut % (Auto) % Lymph % (Auto) % [place] % (Auto) % Eos % (Auto) % Baso % (Auto) % Neut # (Auto) (1.4-6.5) K/uL Lymph # (Auto) (1.2-3.4) K/uL [place] # (Auto) (0.11-0.59) K/uL Eos # (Auto) (0-0.5) K/uL Baso # (Auto) (0-0.2) K/uL Immature Gran # (Auto) (0.00-0.02) K/uL PT (9.0-12.0) Seconds INR (0.9-1.1) APTT (21.0-31.0) Seconds PTT Ratio Fibrinogen (184-400) mg/dl POC Sodium 133 L (135-144) mmol/L Sodium 136 (136-145) mmol/L POC Potassium 2.8 L (3.3-5.0) mmol/L Potassium 2.9 L (3.5-5.1) mmol/L POC Chloride 100 L (101-112) mmol/L Chloride 105 (98-107) mmol/L Carbon Dioxide 21 (21-32) mmol/L POC Total CO2 19 L (24-31) mmol/L Anion Gap 11.0 (3-11) POC Anion Gap 17.0 (16-25) mmol/L POC BUN 8 (7-18) mg/dl BUN 11 (7-18) mg/dl Creatinine 1.32 (0.6-1.4) mg/dl POC Creatinine 1.3 (0.6-1.3) mg/dl Est Cr Clr Drug Dosing 81.3 ml/min Est GFR ( Amer) 67.5 ml/min Est GFR (Non-Af Amer) 58.2 ml/min BUN/Creatinine Ratio 8.0 L (10-20) Glucose 129 H (70-99) mg/dl POC Glucose (70-99) mg/dl POC Glucose (other) 131 H (70-99) mg/dl Lactate (0.4-2.0) mmol/L Calcium 7.0 L (8.5-10.1) mg/dl POC Ioniz Calcium Kiran 0.94 L (1.12-1.32) mmol/l Ionized Calcium (1.12-1.32) mmol/L Phosphorus (2.5-4.9) mg/dl Magnesium 1.7 L (1.8-2.4) mg/dl Total Bilirubin 0.3 (0.2-1) mg/dl AST 13 L (15-37) U/L ALT 26 (12-78) U/L Alkaline Phosphatase 115 (45-117) U/L Troponin I 0.068 H* (0-0.045) ng/ml Total Protein 4.9 L (6.4-8.2) gm/dl Albumin 1.4 L (3.4-5.0) gm/dl Globulin 3.5 (2.5-4.0) gm/dl Albumin/Globulin Ratio 0.4 L (0.9-2) Procalcitonin (0-0.5) ng/ml TSH 8.830 H (0.300-4.500) uIu/ml Free T4 0.99 (0.8-1.6) ng/dl Random Cortisol mcg/dl Specimen Hemolysis Nasal Screen MRSA (PCR) (Negative) Stl C. diff Tox B Gene (Neg) C. difficile Tox B Gene COVID-19 Eval Order SARS-CoV-2 (PCR) (Negative) Blood Type A Positive Antibody Screen NEGATIVE Crossmatch See Detail 03/29/21 03/29/21 Range/Units 16:10 16:10 WBC 12.32 H (4.8-10.8) K/uL RBC 2.87 L (4.7-6.1) M/uL Hgb 8.8 L (14.0-18.0) g/dL POC Hgb (14.0-18.0) g/dl Hct 26.5 L (42-52) % POC Hct (42-52) % MCV 92.3 (80-100) fL MCH 30.7 (25-34) pg MCHC 33.2 (32-36) g/dL RDW Std Deviation 54.7 H (36.4-46.3) fL RDW Coeff of Mychal 16.4 H (11.5-14.5) % Plt Count 368 (130-400) K/uL MPV 9.9 (7.4-10.4) fL Immature Gran % (Auto) 0.4 % Neut % (Auto) 72.7 % Lymph % (Auto) 15.4 % [place] % (Auto) 9.6 % Eos % (Auto) 1.7 % Baso % (Auto) 0.2 % Neut # (Auto) 8.96 H (1.4-6.5) K/uL Lymph # (Auto) 1.90 (1.2-3.4) K/uL [place] # (Auto) 1.18 H (0.11-0.59) K/uL Eos # (Auto) 0.21 (0-0.5) K/uL Baso # (Auto) 0.02 (0-0.2) K/uL Immature Gran # (Auto) 0.05 H (0.00-0.02) K/uL PT 10.7 (9.0-12.0) Seconds INR 1.1 (0.9-1.1) APTT 23.2 (21.0-31.0) Seconds PTT Ratio 0.9 Fibrinogen (184-400) mg/dl POC Sodium (135-144) mmol/L Sodium (136-145) mmol/L POC Potassium (3.3-5.0) mmol/L Potassium (3.5-5.1) mmol/L POC Chloride (101-112) mmol/L Chloride (98-107) mmol/L Carbon Dioxide (21-32) mmol/L POC Total CO2 (24-31) mmol/L Anion Gap (3-11) POC Anion Gap (16-25) mmol/L POC BUN (7-18) mg/dl BUN (7-18) mg/dl Creatinine (0.6-1.4) mg/dl POC Creatinine (0.6-1.3) mg/dl Est Cr Clr Drug Dosing ml/min Est GFR ( Amer) ml/min Est GFR (Non-Af Amer) ml/min BUN/Creatinine Ratio (10-20) Glucose (70-99) mg/dl POC Glucose (70-99) mg/dl POC Glucose (other) (70-99) mg/dl Lactate (0.4-2.0) mmol/L Calcium (8.5-10.1) mg/dl POC Ioniz Calcium Kiran (1.12-1.32) mmol/l Ionized Calcium (1.12-1.32) mmol/L Phosphorus (2.5-4.9) mg/dl Magnesium (1.8-2.4) mg/dl Total Bilirubin (0.2-1) mg/dl AST (15-37) U/L ALT (12-78) U/L Alkaline Phosphatase (45-117) U/L Troponin I (0-0.045) ng/ml Total Protein (6.4-8.2) gm/dl Albumin (3.4-5.0) gm/dl Globulin (2.5-4.0) gm/dl Albumin/Globulin Ratio (0.9-2) Procalcitonin (0-0.5) ng/ml TSH (0.300-4.500) uIu/ml Free T4 (0.8-1.6) ng/dl Random Cortisol mcg/dl Specimen Hemolysis Nasal Screen MRSA (PCR) (Negative) Stl C. diff Tox B Gene (Neg) C. difficile Tox B Gene COVID-19 Eval Order SARS-CoV-2 (PCR) (Negative) Blood Type Antibody Screen Crossmatch (1) Anemia Anemia type: unspecified type Qualified Code(s): D64.9 - Anemia, unspecified (2) Diarrhea Diarrhea type: unspecified type Qualified Code(s): R19.7 - Diarrhea, unspecified (3) Hypotension Hypotension type: unspecified hypotension type Qualified Code(s): I95.9 - Hypotension, unspecified
[2021-03-30 09:14] LABS: Appearance Urine Clear (Clear); Bilirubin Urine Negative (Negative); Blood Urine Negative (Negative); Color Urine Yellow; Glucose Urine UA Negative (Negative); Ketones Urine Trace (Negative); Leukocyte Esterase Urine Negative (Negative); Nitrite Urine Negative (Negative); Protein Urine Negative (Negative); Urobilinogen Urine Negative (Negative)
[2021-03-30 09:36] LABS: Creatinine Urine Random 69.1 mg/dl; Protein Creatinine Ratio Urine 0.5 (0-0.2); Total Protein Urine Random 32.6 mg/dl (0-11.9)
[2021-03-30] MEDS ORDERED: CALCIUM GLUCONATE 10% 1,000 MG in SODIUM CHLORIDE 0.9% 50 ML IV ONE (09:53)
[2021-03-30] MEDS: CHOLECALCIFEROL 1,000 UNITS 25 MCG TAB PO SCH (10:31)
[2021-03-30] MEDS: MULTIVITAMIN TAB PO SCH (10:31)
[2021-03-30] MEDS: ZINC SULFATE 220 MG CAPSULE PO SCH (10:32)
--- NOTE | 2021-03-30 11:29 | Pharmacy Report ---
Pharmacy Glycemic Short Note 2 - Date of Service March 30, 2021 - Glycemic Short BSG Results (Last 24 hours): 03/29/21 03/29/21 03/29/21 16:10 16:18 22:32 Glucose 129 H 142 H POC Glucose POC Glucose (other) 131 H 03/29/21 03/30/21 03/30/21 23:55 04:20 05:21 Glucose 135 H POC Glucose 152 H 129 H POC Glucose (other) OUTPATIENT ANTIDIABETIC REGIMEN: * Metformin 1gm PO BID * Trulicity 1.5mg SQ weekly (last dose 03/25) * A1c = 6.9% 03/23/21 ASSESSMENT: * Well controlled type 2 diabetic admitted to ICU for profound diarrhea, hematochezia, anemia, hypotension * He initially required pressor support however this has since been weaned off * He remains NPO at this time GI consult evaluating patient this AM * Fasting BSGs at goal thus far with 15 units basal on board. Will begin a low dose Lantus this evening per scale given current BSGs and lack of pressors * Novolog dose will be based upon "moderate" stress level and adjusted body weight PLAN FOR INPATIENT GLYCEMIC CONTROL: * Hold outpatient oral diabetes medications * Basal insulin * Lantus SQ BID per scale: 0 units if BSG less than 120, 5 units if BSG 120- 150, 8 units if BSG greater than 150 * Bolus insulin * NovoLog per scale ACHS or Q6hrs while NPO * Goal Range: Low 120 mg/dL - High 160 mg/dL * Correction Factor: 25 mg/dL/unit * Nutritional / Prandial insulin per carb ratio of 1 unit per 8 grams CHO consumed PLAN FOR DISCHARGE: * may resume outpt regimen of metformin and trulicity of no contraindications present
[2021-03-30] MEDS ORDERED: INSULIN GLARGINE SOLOSTAR 100 UNITS/ML 3 ML PEN SC SCH (11:30)
--- NOTE | 2021-03-30 11:37 | Critical Care Progress Note ---
Date of Service March 30, 2021 Assessment & Plan (1) Anemia due to GI blood loss: Plan: Impression: 61-year-old male presents to the ICU with acute GI bleed, anemia requiring blood transfusion, and hypotension currently on vasopressor support. Neuro - [facility] ICU: Negative Cardiac - Hypotensionresolving with hydration and blood products. Likely hypovolemic shock on presentation. Proximal A. fibcurrently NSR on monitor -Patient's Coumadin hold held 1 week ago due to GI bleed -Continuous monitor on telemetry HLDcontinue statin Respiratory - Currently maintaining oxygen saturation on room air. No history of pulmonary disease. Lungs clear to auscultation Continuous monitoring on pulse ox GI - Acute GI bleedpatient with weeklong history of melena and heme positive stool in ED -Was recently admitted for lower GI bleed due to supratherapeutic INR which is since been stopped and normal on this admission -GI consulted follow-up recommendations regarding colonoscopy -Continue PPI drip -Transfuse as indicated -N.p.o. RENAL/LYTES - Creatinine stable at 1.3. Recheck BMP at noon due to hypokalemia. Lactic acidosisresolved following fluid resuscitation - Strict I's and O's ENDO - DM type IIcurrently on oral medications, will transition to sliding scale -ICU hyperglycemic protocol HEME - Acute blood loss anemiasecondary to acute GI bleed -Hemoglobin 8.8 on admission, appears to be stable but will continue to trend every 6 hours and transfuse 2 unit RBCs for now as patient is currently symptomatic. Coag stable. ID - Continue with cefepime/Flagyl in the setting of lower GI bleed with gastritis and hypotension WBC 12,000, afebrile. Pro-Unruly negative. Blood cultures, stool culture, pending LINES/IV ACCESS - Peripheral IVs DVT PROPHYLAXIS - SCDs, hold anticoagulation in the setting of GI bleed Stable for downgrade to PCU. Discussed with the hospitalist. (2) Hypotension: (3) Anemia: (4) Diarrhea: (5) Acute renal failure: (6) Colitis: (7) Lactic acidosis: (8) Hypokalemia: (9) Hypomagnesemia: (10) Shock: (11) Hypoalbuminemia: (12) Elevated troponin: Admission and Anticipated Discharge Date Admission Date: March 29, 2021 Subjective Stable this morning. Weaned off Levophed. Review of Systems Review of Systems: All systems reviewed & are unremarkable except as noted in HPI & below Physical Exam Constitutional: + obese, cooperative and comfortable Eyes: PERRL, conjunctivae normal, anicteric sclerae ENMT: external ear and nose normal, oropharynx normal Neck: trachea midline, no thyromegaly Respiratory: normal respiratory effort, lungs clear to auscultation Cardiovascular: RRR, no murmur, no edema Heart Sounds: normal S1 and normal S2 Gastrointestinal (Abdomen): normal bowel sounds, soft, nontender, no hepatosplenomegaly Musculoskeletal: no cyanosis or clubbing, extremities motor strength 5/5 Skin: Skin color is pallor Neurologic: PERRL, EOMI, accommodation nl, no face palsy, no dysarthria Psychiatric: A+Ox3, euthymic affect Results & Data Results & Data ([facility]) Vital Signs (Past 12 Hours) Vital Signs Temp Pulse Resp BP Pulse Ox 03/30/21 08:44 98.2 F 78 16 131/63 96 03/30/21 08:28 97.7 F 80 17 112/59 L 97 03/30/21 08:25 97.7 F 80 17 112/59 L 97 03/30/21 06:00 23 139/54 L 99 03/30/21 05:30 77 16 98 03/30/21 05:00 82 17 118/66 97 03/30/21 04:30 97.5 F L 76 16 117/64 97 03/30/21 04:00 97.5 F L 81 17 117/64 99 03/30/21 03:30 108 H 17 98 03/30/21 03:00 97.5 F L 88 19 111/65 95 03/30/21 02:30 97.5 F L 90 19 114/62 98 03/30/21 02:15 97.3 F L 85 17 99 03/30/21 02:00 97.3 F L 90 17 110/64 98 03/30/21 01:45 97.3 F L 94 H 21 98 03/30/21 01:30 97.3 F L 87 16 109/64 98 03/30/21 01:15 97.7 F 90 17 106/64 99 03/30/21 01:00 97.7 F 95 H 16 119/71 98 03/30/21 00:45 97.5 F L 92 H 13 114/67 98 03/30/21 00:30 95 H 17 99 03/30/21 00:15 96 H 18 100 03/30/21 00:00 94 H 17 98 03/29/21 23:45 140 H 19 99 Vital signs, labs and imaging personally reviewed Coding Level of Care Code 70299 Subseq Hosp Care Lvl 1 Diagnoses Anemia due to GI blood loss D50.0 Hypotension I95.9 Hypotension type: unspecified hypotension type Anemia D64.9 Anemia type: unspecified type Diarrhea R19.7 Diarrhea type: unspecified type Acute renal failure N17.9 Colitis K52.9 Lactic acidosis E87.2 Hypokalemia E87.6 Hypomagnesemia E83.42 Shock R57.9 Hypoalbuminemia E88.09 Elevated troponin R77.8 (1) Hypotension Hypotension type: unspecified hypotension type Qualified Code(s): I95.9 - Hypotension, unspecified (2) Anemia Anemia type: unspecified type Qualified Code(s): D64.9 - Anemia, unspecified (3) Diarrhea Diarrhea type: unspecified type Qualified Code(s): R19.7 - Diarrhea, unspecified
--- NOTE | 2021-03-30 12:22 | Internal Med Progress Note ---
Date of Service March 30, 2021 Assessment & Plan (1) Shock: (2) Hypotension: (3) Colitis: (4) Acute GI bleeding: (5) Lactic acidosis: Plan: 61-year-old male who has a significant past medical history of atrial flutter on sotalol therapy and previously anticoagulated with warfarin until recent GI bleeding, CAD, T2DM, HTN, HLD, microalbuminuric diabetic nephropathy, secondary polycythemia who presents to ED secondary to persistent diarrhea, hematochezia and lightheadedness since discharge on 03/25. Hospitalized 03/22-03/25 secondary to hemorrhagic shock in setting of lower GI bleed due to Coumadin coagulopathy and diarrheal illness secondary to COVID-19 Suspect persistent lower GI bleeding in setting of acute inflammatory/infectious colitis versus colitis from Covid resulting in hemorrhagic shock with component of hypovolemic shock in setting of profuse diarrhea and poor intake. CT a/p from 03/25:IMPRESSION: Wall thickening and vascular prominence of the transverse colon and hepatic flexure may reflect infectious/inflammatory colitis. Otherwise no acute abnormalities. Has been off pressors since early this morning. Currently hemodynamically stable. Continues to have bloody bowel movement. GI evaluation noted. Plan for sigmoidoscopy today Continue to monitor CBC every 6 hours for now Transfuse PRBC as needed to keep hemoglobin above 7 consumer affairs specialist recommendation noted. Keep n.p.o. Continue IV PPI If remains stable post procedure, may be downgraded to PCU. Continue antibiotics for now. Follow-up outstanding work-up (6) Elevated troponin: Plan: Likely due to demand ischemia from hypovolemic shock. Trended down Continue telemetry monitoring (7) Anemia due to GI blood loss: Plan: On admission H&H 8.8 and 26.5, Status post 2 PRBC so far Hemoglobin posttransfusion is 9. Continue to monitor CBC every 6 hours Transfuse as needed to keep hemoglobin above 8 (8) Hypokalemia: (9) Hypomagnesemia: Plan: Still hypokalemic and hypomagnesemic. Due to GI losses. Continue aggressive repletion and monitor Hypocalcemic. Replete and monitor (10) COVID: Plan: First initial Covid test on 03/22, positive Symptoms started on 02/25 No acute disease on chest x-ray on admission. Currently on isolation (11) Atrial flutter: Plan: Rate and rhythm controlled on sotalol Hold metoprolol for now given significant hypotension Warfarin has been on hold in setting of lower GI bleed since last admission (12) CAD (coronary artery disease): Plan: hx of stent On atorvastatin and metoprolol as outpatient Previously was on lisinopril but discontinued secondary to hypotension (13) T2DM (type 2 diabetes mellitus): Plan: Last A1c 6.9 on 03/23, well controlled Hold Metformin Lantus/NovoLog per protocol (14) HTN (hypertension): Plan: Patient with history of hypertension On metoprolol as outpatient Prior to most recent admission was also on lisinopril 10 mg daily, furosemide 40 mg daily and potassium chloride Lisinopril, furosemide and KCl were discontinued in setting of hypotension Dopplers negative for DVT Avoid any antihypertensives for now (15) Hypoalbuminemia: Plan: Albumin 1.4 Consult dietitian (16) Prolonged QT interval: Plan: On admission QTC 531 MS Avoid QTC prolonging meds (17) DVT prophylaxis: Plan: SCD/teds Dispo: May downgrade to PCU later postprocedure if remains stable PCP: Krupa Cornejo FULL CODE Admission and Anticipated Discharge Date Admission Date: March 29, 2021 Subjective 61-year-old man with history of CAD, DM type II, hypertension, diabetic nephropathy, secondary polycythemia, a flutter on sotalol, previously on warfarin until recent GI bleed during recent hospitalization [was discharged on 03/25/2021] who presents with persistent diarrhea, hematochezia and lightheadedness since discharge. Being managed for anemia due to GI bleed, hypovolemic shock. Patient was admitted to the ICU due to persistent hypotension after fluid resuscitation and admission, requiring pressors. Has been off pressors since this morning. Got a unit of blood yesterday. Currently getting a second unit of blood. Patient seen and examined Continues to have bloody bowel movements. Reports abdominal discomfort usually associated with bowel movement. Does not have any dizziness at this time but has been mostly in the bed since admission. Denies any palpitations, shortness of breath, cough, chest pain Review of Systems Respiratory: no cough and no dyspnea Cardiovascular: + edema; no chest pain and no palpitations Gastrointestinal: + abdominal pain, + diarrhea/loose stools and + blood in stools; no nausea Genitourinary: no dysuria, no difficulty urinating or no urinary frequency Neurologic: + generalized weakness; no headache(s) Psychiatric: no depression and no anxiety Physical Exam Constitutional: + well hydrated; no acute distress Eyes: Pale conjunctiva ENMT: external ear and nose normal, oropharynx normal Respiratory: normal respiratory effort, lungs clear to auscultation Cardiovascular: RRR. S1-S2 Gastrointestinal (Abdomen): normal bowel sounds, soft, nontender, no hepatosplenomegaly Musculoskeletal: Bilateral pitting pedal edema Neurologic: PERRL, EOMI, accommodation nl, no face palsy, no dysarthria Psychiatric: A+Ox3, euthymic affect Results & Data ([facility]) Vital Signs (Past 12 Hours) Vital Signs Temp Pulse Resp BP Pulse Ox 03/30/21 12:19 36.5 C 83 16 108/72 94 03/30/21 12:17 36.5 C 78 18 108/72 94 03/30/21 11:29 79 18 121/78 95 03/30/21 10:29 83 17 120/63 97 03/30/21 09:29 82 23 118/66 93 03/30/21 08:59 36.5 C 82 19 121/56 L 96 03/30/21 08:44 36.8 C 78 16 131/63 96 03/30/21 08:28 36.5 C 80 17 112/59 L 97 03/30/21 08:25 36.5 C 80 17 112/59 L 97 03/30/21 06:00 23 139/54 L 99 03/30/21 05:30 77 16 98 03/30/21 05:00 82 17 118/66 97 03/30/21 04:30 36.4 C L 76 16 117/64 97 03/30/21 04:00 36.4 C L 81 17 117/64 99 03/30/21 03:30 108 H 17 98 03/30/21 03:00 36.4 C L 88 19 111/65 95 03/30/21 02:30 36.4 C L 90 19 114/62 98 03/30/21 02:15 36.3 C L 85 17 99 03/30/21 02:00 36.3 C L 90 17 110/64 98 03/30/21 01:45 36.3 C L 94 H 21 98 03/30/21 01:30 36.3 C L 87 16 109/64 98 03/30/21 01:15 36.5 C 90 17 106/64 99 03/30/21 01:00 36.5 C 95 H 16 119/71 98 03/30/21 00:45 36.4 C L 92 H 13 114/67 98 03/30/21 00:30 95 H 17 99 Laboratory Results Abnormal lab results 03/29/21 03/29/21 03/29/21 Range/Units 16:10 16:10 16:18 WBC 12.32 H (4.8-10.8) K/uL RBC 2.87 L (4.7-6.1) M/uL Hgb 8.8 L (14.0-18.0) g/dL POC Hgb 8.8 L (14.0-18.0) g/dl Hct 26.5 L (42-52) % POC Hct 26 L (42-52) % RDW Std Deviation 54.7 H (36.4-46.3) fL RDW Coeff of Mychal 16.4 H (11.5-14.5) % Neut # (Auto) 8.96 H (1.4-6.5) K/uL [place]ingham # (Auto) 1.18 H (0.11-0.59) K/uL Immature Gran # (Auto) 0.05 H (0.00-0.02) K/uL POC Sodium 133 L (135-144) mmol/L POC Potassium 2.8 L (3.3-5.0) mmol/L Potassium 2.9 L (3.5-5.1) mmol/L POC Chloride 100 L (101-112) mmol/L Chloride (98-107) mmol/L POC Total CO2 19 L (24-31) mmol/L BUN/Creatinine Ratio 8.0 L (10-20) Glucose 129 H (70-99) mg/dl POC Glucose (70-99) mg/dl POC Glucose (other) 131 H (70-99) mg/dl Lactate (0.4-2.0) mmol/L Calcium 7.0 L (8.5-10.1) mg/dl POC Ioniz Calcium Kiran 0.94 L (1.12-1.32) mmol/l Ionized Calcium (1.12-1.32) mmol/L Magnesium 1.7 L (1.8-2.4) mg/dl AST 13 L (15-37) U/L Troponin I 0.068 H* (0-0.045) ng/ml Total Protein 4.9 L (6.4-8.2) gm/dl Albumin 1.4 L (3.4-5.0) gm/dl Albumin/Globulin Ratio 0.4 L (0.9-2) TSH 8.830 H (0.300-4.500) uIu/ml Urine Ketones (Negative) U Random Total Protein (0-11.9) mg/dl Protein/Creatinin Ratio (0-0.2) SARS-CoV-2 (PCR) (Negative) Crossmatch 03/29/21 03/29/21 03/29/21 Range/Units 16:20 16:41 17:16 WBC (4.8-10.8) K/uL RBC (4.7-6.1) M/uL Hgb (14.0-18.0) g/dL POC Hgb (14.0-18.0) g/dl Hct (42-52) % POC Hct (42-52) % RDW Std Deviation (36.4-46.3) fL RDW Coeff of Mychal (11.5-14.5) % Neut # (Auto) (1.4-6.5) K/uL Bingham # (Auto) (0.11-0.59) K/uL Immature Gran # (Auto) (0.00-0.02) K/uL POC Sodium (135-144) mmol/L POC Potassium (3.3-5.0) mmol/L Potassium (3.5-5.1) mmol/L POC Chloride (101-112) mmol/L Chloride (98-107) mmol/L POC Total CO2 (24-31) mmol/L BUN/Creatinine Ratio (10-20) Glucose (70-99) mg/dl POC Glucose (70-99) mg/dl POC Glucose (other) (70-99) mg/dl Lactate 2.5 H* (0.4-2.0) mmol/L Calcium (8.5-10.1) mg/dl POC Ioniz Calcium Kiran (1.12-1.32) mmol/l Ionized Calcium (1.12-1.32) mmol/L Magnesium (1.8-2.4) mg/dl AST (15-37) U/L Troponin I (0-0.045) ng/ml Total Protein (6.4-8.2) gm/dl Albumin (3.4-5.0) gm/dl Albumin/Globulin Ratio (0.9-2) TSH (0.300-4.500) uIu/ml Urine Ketones (Negative) U Random Total Protein (0-11.9) mg/dl Protein/Creatinin Ratio (0-0.2) SARS-CoV-2 (PCR) POSITIVE A* (Negative) Crossmatch See Detail 03/29/21 03/29/21 03/29/21 Range/Units 22:32 22:32 23:55 WBC (4.8-10.8) K/uL RBC (4.7-6.1) M/uL Hgb 8.5 L (14.0-18.0) g/dL POC Hgb (14.0-18.0) g/dl Hct 25.0 L (42-52) % POC Hct (42-52) % RDW Std Deviation (36.4-46.3) fL RDW Coeff of Mychal (11.5-14.5) % Neut # (Auto) (1.4-6.5) K/uL Bingham # (Auto) (0.11-0.59) K/uL Immature Gran # (Auto) (0.00-0.02) K/uL POC Sodium (135-144) mmol/L POC Potassium (3.3-5.0) mmol/L Potassium (3.5-5.1) mmol/L POC Chloride (101-112) mmol/L Chloride 108 H (98-107) mmol/L POC Total CO2 (24-31) mmol/L BUN/Creatinine Ratio 8.3 L (10-20) Glucose 142 H (70-99) mg/dl POC Glucose 152 H (70-99) mg/dl POC Glucose (other) (70-99) mg/dl Lactate (0.4-2.0) mmol/L Calcium 6.6 L (8.5-10.1) mg/dl POC Ioniz Calcium Kiran (1.12-1.32) mmol/l Ionized Calcium (1.12-1.32) mmol/L Magnesium (1.8-2.4) mg/dl AST (15-37) U/L Troponin I 0.053 H* (0-0.045) ng/ml Total Protein (6.4-8.2) gm/dl Albumin (3.4-5.0) gm/dl Albumin/Globulin Ratio (0.9-2) TSH (0.300-4.500) uIu/ml Urine Ketones (Negative) U Random Total Protein (0-11.9) mg/dl Protein/Creatinin Ratio (0-0.2) SARS-CoV-2 (PCR) (Negative) Crossmatch 03/30/21 03/30/21 03/30/21 Range/Units 04:20 04:20 04:20 WBC 11.48 H (4.8-10.8) K/uL RBC 2.63 L (4.7-6.1) M/uL Hgb 8.1 L (14.0-18.0) g/dL POC Hgb (14.0-18.0) g/dl Hct 24.1 L (42-52) % POC Hct (42-52) % RDW Std Deviation 53.8 H (36.4-46.3) fL RDW Coeff of Mychal 16.1 H (11.5-14.5) % Neut # (Auto) 7.96 H (1.4-6.5) K/uL [place] # (Auto) 1.28 H (0.11-0.59) K/uL Immature Gran # (Auto) 0.03 H (0.00-0.02) K/uL POC Sodium (135-144) mmol/L POC Potassium (3.3-5.0) mmol/L Potassium 2.8 L D (3.5-5.1) mmol/L POC Chloride (101-112) mmol/L Chloride 108 H (98-107) mmol/L POC Total CO2 (24-31) mmol/L BUN/Creatinine Ratio 8.0 L (10-20) Glucose 135 H (70-99) mg/dl POC Glucose (70-99) mg/dl POC Glucose (other) (70-99) mg/dl Lactate (0.4-2.0) mmol/L Calcium 6.6 L (8.5-10.1) mg/dl POC Ioniz Calcium Kiran (1.12-1.32) mmol/l Ionized Calcium 0.94 L (1.12-1.32) mmol/L Magnesium (1.8-2.4) mg/dl AST 11 L (15-37) U/L Troponin I (0-0.045) ng/ml Total Protein 4.4 L (6.4-8.2) gm/dl Albumin 1.7 L (3.4-5.0) gm/dl Albumin/Globulin Ratio 0.6 L (0.9-2) TSH (0.300-4.500) uIu/ml Urine Ketones (Negative) U Random Total Protein (0-11.9) mg/dl Protein/Creatinin Ratio (0-0.2) SARS-CoV-2 (PCR) (Negative) Crossmatch 03/30/21 03/30/21 03/30/21 Range/Units 05:21 09:03 09:03 WBC (4.8-10.8) K/uL RBC (4.7-6.1) M/uL Hgb (14.0-18.0) g/dL POC Hgb (14.0-18.0) g/dl Hct (42-52) % POC Hct (42-52) % RDW Std Deviation (36.4-46.3) fL RDW Coeff of Mychal (11.5-14.5) % Neut # (Auto) (1.4-6.5) K/uL [place] # (Auto) (0.11-0.59) K/uL Immature Gran # (Auto) (0.00-0.02) K/uL POC Sodium (135-144) mmol/L POC Potassium (3.3-5.0) mmol/L Potassium (3.5-5.1) mmol/L POC Chloride (101-112) mmol/L Chloride (98-107) mmol/L POC Total CO2 (24-31) mmol/L BUN/Creatinine Ratio (10-20) Glucose (70-99) mg/dl POC Glucose 129 H (70-99) mg/dl POC Glucose (other) (70-99) mg/dl Lactate (0.4-2.0) mmol/L Calcium (8.5-10.1) mg/dl POC Ioniz Calcium Kiran (1.12-1.32) mmol/l Ionized Calcium (1.12-1.32) mmol/L Magnesium (1.8-2.4) mg/dl AST (15-37) U/L Troponin I (0-0.045) ng/ml Total Protein (6.4-8.2) gm/dl Albumin (3.4-5.0) gm/dl Albumin/Globulin Ratio (0.9-2) TSH (0.300-4.500) uIu/ml Urine Ketones Trace H (Negative) U Random Total Protein 32.6 H (0-11.9) mg/dl Protein/Creatinin Ratio 0.5 H (0-0.2) SARS-CoV-2 (PCR) (Negative) Crossmatch 03/30/21 Range/Units 13:20 WBC (4.8-10.8) K/uL RBC (4.7-6.1) M/uL Hgb 9.0 L (14.0-18.0) g/dL POC Hgb (14.0-18.0) g/dl Hct 27.1 L (42-52) % POC Hct (42-52) % RDW Std Deviation (36.4-46.3) fL RDW Coeff of Mychal (11.5-14.5) % Neut # (Auto) (1.4-6.5) K/uL [place] # (Auto) (0.11-0.59) K/uL Immature Gran # (Auto) (0.00-0.02) K/uL POC Sodium (135-144) mmol/L POC Potassium (3.3-5.0) mmol/L Potassium (3.5-5.1) mmol/L POC Chloride (101-112) mmol/L Chloride (98-107) mmol/L POC Total CO2 (24-31) mmol/L BUN/Creatinine Ratio (10-20) Glucose (70-99) mg/dl POC Glucose (70-99) mg/dl POC Glucose (other) (70-99) mg/dl Lactate (0.4-2.0) mmol/L Calcium (8.5-10.1) mg/dl POC Ioniz Calcium Kiran (1.12-1.32) mmol/l Ionized Calcium (1.12-1.32) mmol/L Magnesium (1.8-2.4) mg/dl AST (15-37) U/L Troponin I (0-0.045) ng/ml Total Protein (6.4-8.2) gm/dl Albumin (3.4-5.0) gm/dl Albumin/Globulin Ratio (0.9-2) TSH (0.300-4.500) uIu/ml Urine Ketones (Negative) U Random Total Protein (0-11.9) mg/dl Protein/Creatinin Ratio (0-0.2) SARS-CoV-2 (PCR) (Negative) Crossmatch (1) HTN (hypertension) Hypertension type: essential hypertension Qualified Code(s): I10 - Essential (primary) hypertension
[2021-03-30 13:29] LABS: Hematocrit (blood only) 27.1 % (42-52)
--- NOTE | 2021-03-30 14:20 | GI REPORT ---
Patient Name: Tristan Booker Procedure Date: 03/30/2021 2:06 PM Date of : 1960 Admit Type: Inpatient Age: 61 Gender: Male Attending MD: Danielle Valenzuela MD Procedure: Flexible Sigmoidoscopy Providers: Danielle Valenzuela MD Referring MD: Chasidy Whiting Md Indications: Hematochezia Medicines: None Complications: No immediate complications. Estimated Blood Loss: Estimated blood loss: none. Procedure: Pre-Anesthesia Assessment: - Prior to the procedure, a History and Physical was performed, and patient medications, allergies and sensitivities were reviewed. The patient's tolerance of previous anesthesia was reviewed. - The risks and benefits of the procedure and the sedation options and risks were discussed with the patient. All questions were answered and informed consent was obtained. - Patient identification and proposed procedure were verified prior to the procedure by the physician and the nurse. The procedure was verified in the procedure room. - Pre-procedure physical examination revealed no contraindications to sedation. After obtaining informed consent, the endoscope was passed under direct vision. Throughout the procedure, the patient's blood pressure, pulse, and oxygen saturations were monitored continuously. The Colonoscope was introduced through the anus and advanced to the left transverse colon. The flexible sigmoidoscopy was accomplished without difficulty. The patient tolerated the procedure well. The quality of the bowel preparation was good. Findings: The perianal and digital rectal examinations were normal. Diffuse mild inflammation characterized by congestion (edema), erythema and granularity was found in the entire colon. Biopsies were taken with a cold forceps for histology. Verification of patient identification for the specimen was done by the physician and nurse using the patient's name and date. Non-bleeding internal hemorrhoids were found during retroflexion. The hemorrhoids were small. Impression: - No evidence of active GI bleeding, stool is green. - Diffuse mild inflammation was found in the entire examined colon secondary to nonspecific colitis. Biopsied. - Non-bleeding internal hemorrhoids. Recommendation: - Await pathology results. Danielle Valenzuela MD 03/30/2021 2:19:51 PM This report has been signed electronically. Note Initiated On: 03/30/2021 2:06 PM Number of Addenda: 0 I attest to the content of the Intraoperative Record and orders documented therein, exceptions below {[id number]}
[2021-03-30] MEDS: NOREPINEPHRINE/D5W 8 MG/508 ML BAG IV SCH (17:23)
[2021-03-30 18:47] LABS: Hematocrit (blood only) 28.7 % (42-52); Hemoglobin 9.6 g/dL (14.0-18.0); Mean Corpuscular Hemoglobin 30.6 pg (25-34); Mean Corpuscular Hgb Conc 33.4 g/dL (32-36); Mean Corpuscular Volume 91.4 fL (80-100); Mean Platelet Volume 9.5 fL (7.4-10.4); Platelet Count 300 K/uL (130-400); RDW Coefficient of Variation 16.5 % (11.5-14.5); Red Blood Count 3.14 M/uL (4.7-6.1); White Blood Count 12.95 K/uL (4.8-10.8)
[2021-03-30 19:10] LABS: BUN Creatinine Ratio 7.5 (10-20); Calcium 6.3 mg/dl (8.5-10.1); Creatinine Clr Calc Pharmacy 126.6 ml/min; Est GFR (African American) 109.8 ml/min; Est GFR (Non-African American) 94.7 ml/min
[2021-03-30] MEDS: INSULIN GLARGINE SOLOSTAR 100 UNITS/ML 3 ML PEN SC SCH (20:33)
[2021-03-30] MEDS ORDERED: SODIUM CHLORIDE 0.9% 500 ML IV SCH (22:30)
[2021-03-30] MEDS ORDERED: POTASSIUM CHLORIDE CRTAB 20 MEQ TABCR PO STA (23:50)
[2021-03-31] MEDS: CEFEPIME 2,000 MG in SYRINGE 0 ML IV SCH ×3 (00:01→16:12)
[2021-03-31] MEDS: metroNIDAZOLE 500 MG/100 ML BAG IV SCH ×3 (00:03→16:11)
[2021-03-31] MEDS: POTASSIUM CHLORIDE / WTR 10 MEQ/100 ML PLCT IV SCH ×2 (00:18→02:02)
[2021-03-31 01:23] LABS: Hematocrit (blood only) 28.2 % (42-52); Hemoglobin 9.4 g/dL (14.0-18.0); Mean Corpuscular Hemoglobin 30.6 pg (25-34); Mean Corpuscular Hgb Conc 33.3 g/dL (32-36); Mean Corpuscular Volume 91.9 fL (80-100); Mean Platelet Volume 9.6 fL (7.4-10.4); Platelet Count 307 K/uL (130-400); RDW Coefficient of Variation 16.6 % (11.5-14.5); RDW Standard Deviation 54.5 fL (36.4-46.3); Red Blood Count 3.07 M/uL (4.7-6.1); White Blood Count 12.99 K/uL (4.8-10.8)
[2021-03-31] MEDS: PANTOprazole 40 MG in DEXTROSE 5% 100 ML IV SCH ×5 (02:01→21:32)
[2021-03-31] MEDS: NORMOSOL-R 1,000 ML IV SCH ×3 (02:02→20:29)
[2021-03-31 04:52] LABS: Basophils # (auto) 0.04 K/uL (0-0.2); Basophils % (auto) 0.3 %; Eosinophils # (auto) 0.44 K/uL (0-0.5); Eosinophils % (auto) 3.4 %; Hematocrit (blood only) 30.3 % (42-52); Immature Granulocytes # (auto) 0.03 K/uL (0.00-0.02); Immature Granulocytes % (auto) 0.2 %; Lymphocytes # (auto) 1.26 K/uL (1.2-3.4); Lymphocytes % (auto) 9.6 %; Mean Corpuscular Hemoglobin 30.4 pg (25-34); Mean Corpuscular Volume 92.1 fL (80-100); Mean Platelet Volume 9.9 fL (7.4-10.4); Monocytes # (auto) 1.17 K/uL (0.11-0.59); Monocytes % (auto) 8.9 %; Neutrophils # (auto) 10.19 K/uL (1.4-6.5); Neutrophils % (auto) 77.6 %; Platelet Count 326 K/uL (130-400); RDW Coefficient of Variation 16.5 % (11.5-14.5); RDW Standard Deviation 55.4 fL (36.4-46.3); Red Blood Count 3.29 M/uL (4.7-6.1); White Blood Count 13.13 K/uL (4.8-10.8)
[2021-03-31 05:14] LABS: Albumin Level 1.6 gm/dl (3.4-5.0); Calcium 6.6 mg/dl (8.5-10.1); Creatinine Clr Calc Pharmacy 122.8 ml/min; Est GFR (African American) 108.2 ml/min; Est GFR (Non-African American) 93.4 ml/min; Potassium 3.2 mmol/L (3.5-5.1)
[2021-03-31 05:29] LABS: Albumin Globulin Ratio 0.5 (0.9-2); Bilirubin,Total 0.4 mg/dl (0.2-1); Phosphorus 2.3 mg/dl (2.5-4.9); Total Protein 4.6 gm/dl (6.4-8.2)
[2021-03-31] MEDS ORDERED: POTASSIUM CHLORIDE CRTAB 20 MEQ TABCR PO STA (06:10)
[2021-03-31] MEDS ORDERED: POTASSIUM PHOS 3 MMOL/1 ML INFUSION IV STA (06:10)
[2021-03-31] MEDS ORDERED: POTASSIUM PHOSPHATE 21 MMOL in SODIUM CHLORIDE 0.9% 500 ML IV ONE (07:00)
[2021-03-31] MEDS: MULTIVITAMIN TAB PO SCH (08:38)
[2021-03-31] MEDS: CHOLECALCIFEROL 1,000 UNITS 25 MCG TAB PO SCH (08:38)
[2021-03-31] MEDS: ZINC SULFATE 220 MG CAPSULE PO SCH (08:39)
[2021-03-31] MEDS: INSULIN GLARGINE SOLOSTAR 100 UNITS/ML 3 ML PEN SC SCH ×2 (08:45→20:32)
[2021-03-31] MEDS: INSULIN ASPART 100 UNITS/ML 3 ML PEN SC SCH ×4 (09:10→20:29)
[2021-03-31 09:42] LABS: Hematocrit (blood only) 29.9 % (42-52); Hemoglobin 9.9 g/dL (14.0-18.0); Mean Corpuscular Hemoglobin 30.6 pg (25-34); Mean Corpuscular Hgb Conc 33.1 g/dL (32-36); Mean Corpuscular Volume 92.3 fL (80-100); Mean Platelet Volume 9.3 fL (7.4-10.4); Platelet Count 308 K/uL (130-400); RDW Coefficient of Variation 16.8 % (11.5-14.5); RDW Standard Deviation 56.3 fL (36.4-46.3); Red Blood Count 3.24 M/uL (4.7-6.1); White Blood Count 13.32 K/uL (4.8-10.8)
[2021-03-31] MEDS: SOTALOL HCL 80 MG TAB PO SCH ×2 (09:46→20:31)
--- NOTE | 2021-03-31 11:45 | Hospitalist Progress Note ---
Date of Service March 31, 2021 Assessment & Plan (1) Shock: (2) Hypotension: (3) Colitis: (4) Acute GI bleeding: (5) Lactic acidosis: Plan: 61-year-old male who has a significant past medical history of atrial flutter on sotalol therapy and previously anticoagulated with warfarin until recent GI bleeding, CAD, T2DM, HTN, HLD, microalbuminuric diabetic nephropathy, secondary polycythemia who presents to ED secondary to persistent diarrhea, hematochezia and lightheadedness since discharge on 03/25. Hospitalized 03/22-03/25 secondary to hemorrhagic shock in setting of lower GI bleed due to Coumadin coagulopathy and diarrheal illness secondary to COVID-19 Suspect persistent lower GI bleeding in setting of acute inflammatory/infectious colitis versus colitis from Covid resulting in hemorrhagic shock with component of hypovolemic shock in setting of profuse diarrhea and poor intake. CT a/p from 03/25:IMPRESSION: Wall thickening and vascular prominence of the transverse colon and hepatic flexure may reflect infectious/inflammatory colitis. Otherwise no acute abnormalities. Was initially admitted to ICU. Required pressors briefly for persistent hypotension despite fluid resuscitation. Patient is currently hemodynamically stable. Sigmoidoscopy revealed mild diffuse colitis without active bleeding. Biopsies were taken. Follow-up pathologies Hemoglobin remained stable. Still having hematochezia Continue to monitor CBC every 6 Monitor electrolyte and replete as needed. Hypokalemic. Repleted overnight and early this morning Continue cefepime and Flagyl for now (6) Elevated troponin: Plan: Likely due to demand ischemia from hypovolemic shock. Trended down Continue telemetry monitoring (7) Anemia due to GI blood loss: Plan: On admission H&H 8.8 and 26.5, Status post 2 PRBC so far Hemoglobin is remained stable since yesterday Continue to monitor CBC every 6 hours Transfuse as needed to keep hemoglobin above 8 (8) Hypokalemia: (9) Hypomagnesemia: Plan: Hypokalemic. Continue to replete and monitor (10) COVID: Plan: First initial Covid test on 03/22, positive Symptoms started on 02/25 No acute disease on chest x-ray on admission. Currently on isolation (11) Atrial flutter: Plan: Rate and rhythm controlled on sotalol Hold metoprolol for now given significant hypotension Warfarin has been on hold in setting of lower GI bleed since last admission (12) CAD (coronary artery disease): Plan: hx of stent On atorvastatin and metoprolol as outpatient Previously was on lisinopril but discontinued secondary to hypotension (13) T2DM (type 2 diabetes mellitus): Plan: Last A1c 6.9 on 03/23, well controlled Hold Metformin Lantus/NovoLog per protocol (14) HTN (hypertension): Plan: Patient with history of hypertension On metoprolol as outpatient Prior to most recent admission was also on lisinopril 10 mg daily, furosemide 40 mg daily and potassium chloride Lisinopril, furosemide and KCl were discontinued in setting of hypotension Dopplers negative for DVT Avoid any antihypertensives for now (15) Hypoalbuminemia: Plan: Albumin 1.4 (16) Prolonged QT interval: Plan: On admission QTC 531 MS Avoid QTC prolonging meds (17) DVT prophylaxis: Plan: SCD/teds Dispo: May downgrade to PCU later postprocedure if remains stable PCP: Krupa Cornejo FULL CODE Admission and Anticipated Discharge Date Admission Date: March 29, 2021 Subjective 61-year-old man with history of CAD, DM type II, hypertension, diabetic nephropathy, secondary polycythemia, a flutter on sotalol, previously on warfarin until recent GI bleed during recent hospitalization [was discharged on 03/25/2021] who presents with persistent diarrhea, hematochezia and lightheadedness since discharge. Being managed for anemia due to GI bleed, hypovolemic shock. Patient was admitted to the ICU due to persistent hypotension after fluid resuscitation and admission, requiring pressors. Has been off pressors since this morning. Got two PRBCs. Sigmoidoscopy on 03/30/2021 revealed diffuse mild inflammation in the entire colon, no evidence of active GI bleed, nonbleeding internal hemorrhoids. Biopsies were taken. Patient seen and examined Continues to have diarrhea with blood streaks and occasional clots Hemoglobin has remained stable since yesterday after two PRBC Reports abdominal discomfort only associated with bowel movement. Denies any dizziness Denies any palpitations, shortness of breath, cough, chest pain Review of Systems Respiratory: no cough and no dyspnea Cardiovascular: + edema; no chest pain and no palpitations Gastrointestinal: + abdominal pain, + diarrhea/loose stools and + blood in stools; no nausea Genitourinary: no dysuria, no difficulty urinating or no urinary frequency Neurologic: + generalized weakness; no headache(s) Psychiatric: no depression and no anxiety Physical Exam Constitutional: + well hydrated; no acute distress ENMT: external ear and nose normal, oropharynx normal Respiratory: normal respiratory effort, lungs clear to auscultation Cardiovascular: RRR. S1-S2 Gastrointestinal (Abdomen): normal bowel sounds, soft, nontender, no hepatosplenomegaly Musculoskeletal: Bilateral pitting pedal edema Neurologic: PERRL, EOMI, accommodation nl, no face palsy, no dysarthria Psychiatric: A+Ox3, euthymic affect Results & Data Results & Data ([facility]) Vital Signs (Past 12 Hours) Vital Signs Temp Pulse Pulse Resp BP BP Pulse Ox 03/31/21 09:28 86 102/56 L 03/31/21 09:00 93/57 L 03/31/21 08:00 78 03/31/21 07:30 36.6 C 80 22 91/54 L 95 03/31/21 03:29 36.8 C 78 15 104/63 98 03/31/21 00:38 78 Laboratory Results Abnormal lab results 03/30/21 03/30/21 03/30/21 Range/Units 13:20 18:30 18:30 WBC 12.95 H (4.8-10.8) K/uL RBC 3.14 L (4.7-6.1) M/uL Hgb 9.0 L 9.6 L (14.0-18.0) g/dL Hct 27.1 L 28.7 L (42-52) % RDW Std Deviation 54.0 H (36.4-46.3) fL RDW Coeff of Mychal 16.5 H (11.5-14.5) % Neut # (Auto) (1.4-6.5) K/uL Faulk # (Auto) (0.11-0.59) K/uL Immature Gran # (Auto) (0.00-0.02) K/uL Potassium 3.0 L (3.5-5.1) mmol/L Chloride 110 H (98-107) mmol/L Carbon Dioxide 20 L (21-32) mmol/L Anion Gap (3-11) BUN 6 L (7-18) mg/dl BUN/Creatinine Ratio 7.5 L (10-20) Glucose 121 H (70-99) mg/dl POC Glucose (70-99) mg/dl Calcium 6.3 L (8.5-10.1) mg/dl Phosphorus (2.5-4.9) mg/dl Total Protein (6.4-8.2) gm/dl Albumin (3.4-5.0) gm/dl Albumin/Globulin Ratio (0.9-2) 03/31/21 03/31/21 03/31/21 Range/Units 00:44 04:09 04:09 WBC 12.99 H 13.13 H (4.8-10.8) K/uL RBC 3.07 L 3.29 L (4.7-6.1) M/uL Hgb 9.4 L 10.0 L (14.0-18.0) g/dL Hct 28.2 L 30.3 L (42-52) % RDW Std Deviation 54.5 H 55.4 H (36.4-46.3) fL RDW Coeff of Mychal 16.6 H 16.5 H (11.5-14.5) % Neut # (Auto) 10.19 H (1.4-6.5) K/uL Faulk # (Auto) 1.17 H (0.11-0.59) K/uL Immature Gran # (Auto) 0.03 H (0.00-0.02) K/uL Potassium 3.2 L (3.5-5.1) mmol/L Chloride 114 H (98-107) mmol/L Carbon Dioxide (21-32) mmol/L Anion Gap 2.0 L (3-11) BUN 6 L (7-18) mg/dl BUN/Creatinine Ratio 7.0 L (10-20) Glucose 114 H (70-99) mg/dl POC Glucose (70-99) mg/dl Calcium 6.6 L (8.5-10.1) mg/dl Phosphorus 2.3 L D (2.5-4.9) mg/dl Total Protein 4.6 L (6.4-8.2) gm/dl Albumin 1.6 L (3.4-5.0) gm/dl Albumin/Globulin Ratio 0.5 L (0.9-2) 10/30/21 10/30/21 10/30/21 Range/Units 07:55 09:31 11:48 WBC 13.32 H (4.8-10.8) K/uL RBC 3.24 L (4.7-6.1) M/uL Hgb 9.9 L (14.0-18.0) g/dL Hct 29.9 L (42-52) % RDW Std Deviation 56.3 H (36.4-46.3) fL RDW Coeff of Mychal 16.8 H (11.5-14.5) % Neut # (Auto) (1.4-6.5) K/uL Faulk # (Auto) (0.11-0.59) K/uL Immature Gran # (Auto) (0.00-0.02) K/uL Potassium (3.5-5.1) mmol/L Chloride (98-107) mmol/L Carbon Dioxide (21-32) mmol/L Anion Gap (3-11) BUN (7-18) mg/dl BUN/Creatinine Ratio (10-20) Glucose (70-99) mg/dl POC Glucose 106 H 144 H (70-99) mg/dl Calcium (8.5-10.1) mg/dl Phosphorus (2.5-4.9) mg/dl Total Protein (6.4-8.2) gm/dl Albumin (3.4-5.0) gm/dl Albumin/Globulin Ratio (0.9-2) (1) HTN (hypertension) Hypertension type: essential hypertension Qualified Code(s): I10 - Essential (primary) hypertension
[2021-03-31 16:15] LABS: Hematocrit (blood only) 27.9 % (42-52); Hemoglobin 9.3 g/dL (14.0-18.0); Mean Corpuscular Hemoglobin 30.8 pg (25-34); Mean Corpuscular Hgb Conc 33.3 g/dL (32-36); Mean Corpuscular Volume 92.4 fL (80-100); Mean Platelet Volume 9.4 fL (7.4-10.4); Platelet Count 291 K/uL (130-400); RDW Coefficient of Variation 16.8 % (11.5-14.5); RDW Standard Deviation 55.6 fL (36.4-46.3); Red Blood Count 3.02 M/uL (4.7-6.1); White Blood Count 13.11 K/uL (4.8-10.8)
[2021-03-31 16:36] LABS: BUN Creatinine Ratio 6.4 (10-20); Calcium 6.5 mg/dl (8.5-10.1); Creatinine Clr Calc Pharmacy 109.2 ml/min; Est GFR (African American) 95.5 ml/min; Est GFR (Non-African American) 82.4 ml/min; Potassium 3.5 mmol/L (3.5-5.1)
[2021-03-31] MEDS: ATORVASTATIN 40 MG TAB PO SCH (20:31)
[2021-03-31] MEDS: THIAMINE HCL 100 MG TAB PO SCH (20:32)
[2021-03-31 23:28] LABS: Hematocrit (blood only) 26.9 % (42-52); Hemoglobin 9.1 g/dL (14.0-18.0); Mean Corpuscular Hemoglobin 31.2 pg (25-34); Mean Corpuscular Hgb Conc 33.8 g/dL (32-36); Mean Corpuscular Volume 92.1 fL (80-100); Mean Platelet Volume 9.7 fL (7.4-10.4); Nucleated RBC # (auto) 0.05 K/uL (0-0); Nucleated RBC % (auto) 0.4 %; Platelet Count 298 K/uL (130-400); RDW Standard Deviation 56.1 fL (36.4-46.3); Red Blood Count 2.92 M/uL (4.7-6.1); White Blood Count 11.43 K/uL (4.8-10.8)
[2021-04-01] MEDS: CEFEPIME 2,000 MG in SYRINGE 0 ML IV SCH ×3 (00:51→15:46)
[2021-04-01] MEDS: metroNIDAZOLE 500 MG/100 ML BAG IV SCH ×3 (00:51→15:47)
[2021-04-01 04:14] LABS: Basophils # (auto) 0.05 K/uL (0-0.2); Basophils % (auto) 0.5 %; Eosinophils % (auto) 4.6 %; Hematocrit (blood only) 25.5 % (42-52); Hemoglobin 8.5 g/dL (14.0-18.0); Immature Granulocytes # (auto) 0.02 K/uL (0.00-0.02); Immature Granulocytes % (auto) 0.2 %; Lymphocytes # (auto) 1.93 K/uL (1.2-3.4); Lymphocytes % (auto) 17.6 %; Mean Corpuscular Hemoglobin 30.8 pg (25-34); Mean Corpuscular Hgb Conc 33.3 g/dL (32-36); Mean Corpuscular Volume 92.4 fL (80-100); Mean Platelet Volume 9.3 fL (7.4-10.4); Monocytes # (auto) 1.09 K/uL (0.11-0.59); Neutrophils # (auto) 7.35 K/uL (1.4-6.5); Neutrophils % (auto) 67.1 %; Platelet Count 269 K/uL (130-400); RDW Standard Deviation 56.9 fL (36.4-46.3); Red Blood Count 2.76 M/uL (4.7-6.1); White Blood Count 10.94 K/uL (4.8-10.8)
[2021-04-01 04:37] LABS: Albumin Level 1.2 gm/dl (3.4-5.0); BUN Creatinine Ratio 6.8 (10-20); Creatinine Clr Calc Pharmacy 116.2 ml/min; Est GFR (African American) 103.1 ml/min; Est GFR (Non-African American) 88.9 ml/min; Magnesium 1.9 mg/dl (1.8-2.4); Potassium 3.4 mmol/L (3.5-5.1)
[2021-04-01 04:57] LABS: Albumin Globulin Ratio 0.5 (0.9-2); Bilirubin,Total 0.2 mg/dl (0.2-1); Globulin 2.6 gm/dl (2.5-4.0); Phosphorus 1.7 mg/dl (2.5-4.9); Total Protein 3.8 gm/dl (6.4-8.2)
[2021-04-01] MEDS: PANTOprazole 40 MG in DEXTROSE 5% 100 ML IV SCH ×5 (05:02→22:29)
[2021-04-01] MEDS: NORMOSOL-R 1,000 ML IV SCH ×2 (05:02→12:33)
[2021-04-01] MEDS: MULTIVITAMIN TAB PO SCH (09:13)
[2021-04-01] MEDS: THIAMINE HCL 100 MG TAB PO SCH ×2 (09:13→20:15)
[2021-04-01] MEDS: CHOLECALCIFEROL 1,000 UNITS 25 MCG TAB PO SCH (09:13)
[2021-04-01] MEDS: SOTALOL HCL 80 MG TAB PO SCH ×2 (09:13→20:15)
[2021-04-01] MEDS: ZINC SULFATE 220 MG CAPSULE PO SCH (09:13)
[2021-04-01] MEDS: INSULIN ASPART 100 UNITS/ML 3 ML PEN SC SCH ×4 (09:14→20:27)
[2021-04-01] MEDS: INSULIN GLARGINE SOLOSTAR 100 UNITS/ML 3 ML PEN SC SCH ×2 (09:14→20:51)
[2021-04-01 09:58] LABS: Hemoglobin 9.3 g/dL (14.0-18.0); Mean Corpuscular Hemoglobin 30.8 pg (25-34); Mean Corpuscular Hgb Conc 33.2 g/dL (32-36); Mean Corpuscular Volume 92.7 fL (80-100); Mean Platelet Volume 9.4 fL (7.4-10.4); Platelet Count 293 K/uL (130-400); RDW Standard Deviation 57.5 fL (36.4-46.3); Red Blood Count 3.02 M/uL (4.7-6.1); White Blood Count 9.27 K/uL (4.8-10.8)
--- NOTE | 2021-04-01 11:45 | Hospitalist Progress Note ---
Date of Service April 01, 2021 Assessment & Plan (1) Shock: (2) Hypotension: (3) Colitis: (4) Acute GI bleeding: (5) Lactic acidosis: Plan: 61-year-old male who has a significant past medical history of atrial flutter on sotalol therapy and previously anticoagulated with warfarin until recent GI bleeding, CAD, T2DM, HTN, HLD, microalbuminuric diabetic nephropathy, secondary polycythemia who presents to ED secondary to persistent diarrhea, hematochezia and lightheadedness since discharge on 03/25. Hospitalized 03/22-03/25 secondary to hemorrhagic shock in setting of lower GI bleed due to Coumadin coagulopathy and diarrheal illness secondary to COVID-19 Suspect persistent lower GI bleeding in setting of acute inflammatory/infectious colitis versus colitis from Covid resulting in hemorrhagic shock with component of hypovolemic shock in setting of profuse diarrhea and poor intake. CT a/p from 03/25:IMPRESSION: Wall thickening and vascular prominence of the transverse colon and hepatic flexure may reflect infectious/inflammatory colitis. Otherwise no acute abnormalities. Was initially admitted to ICU. Required pressors briefly for persistent hypotension despite fluid resuscitation. Sigmoidoscopy revealed mild diffuse colitis without active bleeding. Biopsies were taken. Awaiting pathologies Hemoglobin remains stable in 9s Check CBC q12 Monitor electrolyte and replete as needed. Was on IVF at 125cc/h. Patient is tolerating diet well but still having a lot of diarrhea. Reduce to 80/h for now to make up for GI losses Continue cefepime and Flagyl for now (6) Elevated troponin: Plan: Likely due to demand ischemia from hypovolemic shock. Trended down Continue telemetry monitoring (7) Anemia due to GI blood loss: Plan: On admission H&H 8.8 and 26.5, Status post 2 PRBC so far Hemoglobin is remained stable since yesterday Continue to monitor CBC every 6 hours Transfuse as needed to keep hemoglobin above 8 (8) Hypokalemia: (9) Hypomagnesemia: Plan: Due to GI lossess K 3.2. Phosp 1.7 Mag is 1.9 today Continue to replete and monitor (10) COVID: Plan: First initial Covid test on 03/22, positive Symptoms started on 02/25 No acute disease on chest x-ray on admission. Currently on isolation (11) Atrial flutter: Plan: Rate and rhythm controlled on sotalol Warfarin has been on hold in setting of lower GI bleed since last admission Check EKG (12) CAD (coronary artery disease): Plan: hx of stent On atorvastatin and metoprolol as outpatient Previously was on lisinopril but discontinued secondary to hypotension (13) T2DM (type 2 diabetes mellitus): Plan: Last A1c 6.9 on 03/23, well controlled Hold Metformin Lantus/NovoLog per protocol (14) HTN (hypertension): Plan: Patient with history of hypertension On metoprolol as outpatient Prior to most recent admission was also on lisinopril 10 mg daily, furosemide 40 mg daily and potassium chloride Lisinopril, furosemide and KCl were discontinued in setting of hypotension Dopplers negative for DVT Avoid any antihypertensives for now (15) Hypoalbuminemia: Plan: Albumin 1.4 (16) Prolonged QT interval: Plan: On admission QTC 527 MS Avoid QTC prolonging meds (17) DVT prophylaxis: Plan: SCD/teds Dispo: May downgrade to PCU later postprocedure if remains stable PCP: Krupa Cornejo FULL CODE Admission and Anticipated Discharge Date Admission Date: March 29, 2021 Subjective 61-year-old man with history of CAD, DM type II, hypertension, diabetic nephropathy, secondary polycythemia, a flutter on sotalol, previously on warfarin until recent GI bleed during recent hospitalization [was discharged on 03/25/2021] who presents with persistent diarrhea, hematochezia and lightheadedness since discharge. Being managed for anemia due to GI bleed, hypovolemic shock. Patient was admitted to the ICU due to persistent hypotension after fluid resuscitation and admission, requiring pressors. Has been off pressors since this morning. Got two PRBCs. Sigmoidoscopy on 03/30/2021 revealed diffuse mild inflammation in the entire colon, no evidence of active GI bleed, nonbleeding internal hemorrhoids. Biopsies were taken. Patient seen and examined Patient continues to have diarrhea with blood streaks Reports abdominal discomfort only associated with bowel movements. Denies any dizziness Denies any palpitations, shortness of breath, cough, chest pain Review of Systems Respiratory: no cough and no dyspnea Cardiovascular: + edema; no chest pain and no palpitations Gastrointestinal: + abdominal pain, + diarrhea/loose stools and + blood in stools; no nausea Genitourinary: no dysuria, no difficulty urinating or no urinary frequency Integumentary: Leg swelling Neurologic: no generalized weakness and no headache(s) Psychiatric: no depression and no anxiety Physical Exam Constitutional: + well hydrated; no acute distress ENMT: external ear and nose normal, oropharynx normal Respiratory: normal respiratory effort, lungs clear to auscultation Cardiovascular: Irregularly irregular rhythm, S1 S2 Gastrointestinal (Abdomen): normal bowel sounds, soft, nontender, no hepatosplenomegaly Musculoskeletal: Bilateral pedal edema Neurologic: PERRL, EOMI, accommodation nl, no face palsy, no dysarthria Psychiatric: A+Ox3, euthymic affect Results & Data Results & Data ([facility]) Vital Signs (Past 12 Hours) Vital Signs Temp Pulse Pulse Resp BP Pulse Ox 04/01/21 09:29 77 04/01/21 08:07 36.8 C 79 16 100/61 98 04/01/21 03:40 36.6 C 76 12 79/53 L 99 Laboratory Results Abnormal lab results 03/31/21 03/31/21 03/31/21 Range/Units 16:02 16:02 16:43 WBC 13.11 H (4.8-10.8) K/uL RBC 3.02 L (4.7-6.1) M/uL Hgb 9.3 L (14.0-18.0) g/dL Hct 27.9 L (42-52) % RDW Std Deviation 55.6 H (36.4-46.3) fL RDW Coeff of Mychal 16.8 H (11.5-14.5) % Neut # (Auto) (1.4-6.5) K/uL Wayne # (Auto) (0.11-0.59) K/uL Absolute Nucleated RBC (0-0) K/uL Potassium (3.5-5.1) mmol/L Chloride 113 H (98-107) mmol/L Carbon Dioxide 20 L (21-32) mmol/L BUN 6 L (7-18) mg/dl BUN/Creatinine Ratio 6.4 L (10-20) Glucose 163 H (70-99) mg/dl POC Glucose 164 H (70-99) mg/dl Calcium 6.5 L (8.5-10.1) mg/dl Phosphorus (2.5-4.9) mg/dl AST (15-37) U/L Total Protein (6.4-8.2) gm/dl Albumin (3.4-5.0) gm/dl Albumin/Globulin Ratio (0.9-2) 03/31/21 03/31/21 04/01/21 Range/Units 20:11 22:26 03:57 WBC 11.43 H 10.94 H (4.8-10.8) K/uL RBC 2.92 L 2.76 L (4.7-6.1) M/uL Hgb 9.1 L 8.5 L (14.0-18.0) g/dL Hct 26.9 L 25.5 L (42-52) % RDW Std Deviation 56.1 H 56.9 H (36.4-46.3) fL RDW Coeff of Mychal 17.0 H 17.0 H (11.5-14.5) % Neut # (Auto) 7.35 H (1.4-6.5) K/uL Wayne # (Auto) 1.09 H (0.11-0.59) K/uL Absolute Nucleated RBC 0.05 H (0-0) K/uL Potassium (3.5-5.1) mmol/L Chloride (98-107) mmol/L Carbon Dioxide (21-32) mmol/L BUN (7-18) mg/dl BUN/Creatinine Ratio (10-20) Glucose (70-99) mg/dl POC Glucose 120 H (70-99) mg/dl Calcium (8.5-10.1) mg/dl Phosphorus (2.5-4.9) mg/dl AST (15-37) U/L Total Protein (6.4-8.2) gm/dl Albumin (3.4-5.0) gm/dl Albumin/Globulin Ratio (0.9-2) 04/01/21 04/01/21 04/01/21 Range/Units 03:57 07:59 09:47 WBC (4.8-10.8) K/uL RBC 3.02 L (4.7-6.1) M/uL Hgb 9.3 L (14.0-18.0) g/dL Hct 28.0 L (42-52) % RDW Std Deviation 57.5 H (36.4-46.3) fL RDW Coeff of Mychal 17.0 H (11.5-14.5) % Neut # (Auto) (1.4-6.5) K/uL Wayne # (Auto) (0.11-0.59) K/uL Absolute Nucleated RBC (0-0) K/uL Potassium 3.4 L (3.5-5.1) mmol/L Chloride 113 H (98-107) mmol/L Carbon Dioxide (21-32) mmol/L BUN 6 L (7-18) mg/dl BUN/Creatinine Ratio 6.8 L (10-20) Glucose 120 H (70-99) mg/dl POC Glucose 115 H (70-99) mg/dl Calcium 6.0 L (8.5-10.1) mg/dl Phosphorus 1.7 L (2.5-4.9) mg/dl AST 14 L (15-37) U/L Total Protein 3.8 L (6.4-8.2) gm/dl Albumin 1.2 L (3.4-5.0) gm/dl Albumin/Globulin Ratio 0.5 L (0.9-2) 04/01/21 Range/Units 11:58 WBC (4.8-10.8) K/uL RBC (4.7-6.1) M/uL Hgb (14.0-18.0) g/dL Hct (42-52) % RDW Std Deviation (36.4-46.3) fL RDW Coeff of Mychal (11.5-14.5) % Neut # (Auto) (1.4-6.5) K/uL Wayne # (Auto) (0.11-0.59) K/uL Absolute Nucleated RBC (0-0) K/uL Potassium (3.5-5.1) mmol/L Chloride (98-107) mmol/L Carbon Dioxide (21-32) mmol/L BUN (7-18) mg/dl BUN/Creatinine Ratio (10-20) Glucose (70-99) mg/dl POC Glucose 147 H (70-99) mg/dl Calcium (8.5-10.1) mg/dl Phosphorus (2.5-4.9) mg/dl AST (15-37) U/L Total Protein (6.4-8.2) gm/dl Albumin (3.4-5.0) gm/dl Albumin/Globulin Ratio (0.9-2) (1) HTN (hypertension) Hypertension type: essential hypertension Qualified Code(s): I10 - Essential (primary) hypertension
[2021-04-01] MEDS ORDERED: POTASSIUM PHOS 3 MMOL/1 ML INFUSION IV STA (13:42)
[2021-04-01] MEDS ORDERED: POTASSIUM PHOSPHATE 30 MMOL in SODIUM CHLORIDE 0.9% 500 ML IV ONE (14:00)
--- NOTE | 2021-04-01 15:02 | Pharmacy Report ---
Pharmacy Glycemic Short Note 2 - Date of Service April 01, 2021 - Glycemic Short BSG Results (Last 24 hours): 03/31/21 03/31/21 03/31/21 16:02 16:43 20:11 Glucose 163 H POC Glucose 164 H 120 H 04/01/21 04/01/21 04/01/21 03:57 07:59 11:58 Glucose 120 H POC Glucose 115 H 147 H OUTPATIENT ANTIDIABETIC REGIMEN: * Metformin 1gm PO BID * Trulicity 1.5mg SQ weekly (last dose 03/25) * A1c = 6.9% 03/23/21 ASSESSMENT: 04/01: * Tristan received 27 units of SQ insulin yesterday (5 units basal + 22 units bolus) * Increased insulin needs likely due to advancement of diet * Will continue Lantus BID dosed per insulin scale until basal needs are better known * Post prandial BSGs are acceptable Background: * Well controlled type 2 diabetic admitted to ICU for profound diarrhea, hematochezia, anemia, hypotension * He initially required pressor support however this has since been weaned off * He remains NPO at this time GI consult evaluating patient this AM * Fasting BSGs at goal thus far with 15 units basal on board. Will begin a low dose Lantus this evening per scale given current BSGs and lack of pressors * Novolog dose will be based upon "moderate" stress level and adjusted body weight PLAN FOR INPATIENT GLYCEMIC CONTROL: * Hold outpatient oral diabetes medications * Basal insulin * Lantus SQ BID per scale: 0 units if BSG less than 110, 5 units if BSG 110- 150, 8 units if BSG greater than 150 * Bolus insulin * NovoLog per scale ACHS or Q6hrs while NPO * Goal Range: Low 120 mg/dL - High 160 mg/dL * Correction Factor: 25 mg/dL/unit * Nutritional / Prandial insulin per carb ratio of 1 unit per 8 grams CHO consumed PLAN FOR DISCHARGE: * may resume outpt regimen of metformin and trulicity of no contraindications present
[2021-04-01] MEDS: ATORVASTATIN 40 MG TAB PO SCH (20:15)
[2021-04-02] MEDS: CEFEPIME 2,000 MG in SYRINGE 0 ML IV SCH ×3 (00:35→15:17)
[2021-04-02] MEDS: metroNIDAZOLE 500 MG/100 ML BAG IV SCH ×3 (00:40→15:17)
[2021-04-02] MEDS: NORMOSOL-R 1,000 ML IV SCH ×3 (00:45→21:11)
[2021-04-02] MEDS: PANTOprazole 40 MG in DEXTROSE 5% 100 ML IV SCH ×5 (03:45→23:18)
[2021-04-02 06:23] LABS: Hematocrit (blood only) 28.8 % (42-52); Hemoglobin 9.5 g/dL (14.0-18.0); Mean Corpuscular Hemoglobin 30.6 pg (25-34); Mean Corpuscular Volume 92.9 fL (80-100); Mean Platelet Volume 9.9 fL (7.4-10.4); Platelet Count 267 K/uL (130-400); RDW Coefficient of Variation 17.1 % (11.5-14.5); RDW Standard Deviation 57.8 fL (36.4-46.3); White Blood Count 9.48 K/uL (4.8-10.8)
[2021-04-02 06:50] LABS: BUN Creatinine Ratio 8.2 (10-20); Calcium 6.4 mg/dl (8.5-10.1); Creatinine Clr Calc Pharmacy 151.4 ml/min; Est GFR (African American) 117.5 ml/min; Est GFR (Non-African American) 101.4 ml/min; Magnesium 1.4 mg/dl (1.8-2.4); Potassium 3.4 mmol/L (3.5-5.1)
[2021-04-02] MEDS ORDERED: POTASSIUM PHOS 3 MMOL/1 ML INFUSION IV STA ×2 (08:15→18:11)
[2021-04-02] MEDS ORDERED: POTASSIUM PHOSPHATE 30 MMOL in SODIUM CHLORIDE 0.9% 500 ML IV ONE (08:45)
[2021-04-02] MEDS: SOTALOL HCL 80 MG TAB PO SCH ×2 (08:49→21:13)
[2021-04-02] MEDS: MULTIVITAMIN TAB PO SCH (08:49)
[2021-04-02] MEDS: CHOLECALCIFEROL 1,000 UNITS 25 MCG TAB PO SCH (08:50)
[2021-04-02] MEDS: THIAMINE HCL 100 MG TAB PO SCH ×2 (08:50→21:14)
[2021-04-02] MEDS: ZINC SULFATE 220 MG CAPSULE PO SCH (08:50)
[2021-04-02] MEDS: INSULIN GLARGINE SOLOSTAR 100 UNITS/ML 3 ML PEN SC SCH ×2 (08:51→21:12)
[2021-04-02] MEDS: INSULIN ASPART 100 UNITS/ML 3 ML PEN SC SCH ×4 (08:53→21:12)
[2021-04-02] MEDS: MAGNESIUM SULFATE / D5W 1 GM/100 ML BAG IV SCH ×4 (08:56→23:17)
--- NOTE | 2021-04-02 11:50 | Electrocardiogram Report ---
Test Reason : Blood Pressure : / mmHG Vent. Rate : 081 BPM Atrial Rate : 081 BPM P-R Int : 206 ms QRS Dur : 088 ms QT Int : 454 ms P-R-T Axes : 069 044 089 degrees QTc Int : 527 ms Sinus rhythm with Premature atrial complexes Low voltage QRS Nonspecific ST abnormality Abnormal ECG Confirmed by Ward Moreira ([id number] on 04/02/2021 11:50:25 AM Referred By: REFERRED SELF Confirmed By:Rolando Moreira
--- NOTE | 2021-04-02 11:53 | Hospitalist Progress Note ---
Date of Service April 02, 2021 Assessment & Plan (1) Shock: (2) Hypotension: (3) Colitis: (4) Acute GI bleeding: (5) Lactic acidosis: Plan: 61-year-old male who has a significant past medical history of atrial flutter on sotalol therapy and previously anticoagulated with warfarin until recent GI bleeding, CAD, T2DM, HTN, HLD, microalbuminuric diabetic nephropathy, secondary polycythemia who presents to ED secondary to persistent diarrhea, hematochezia and lightheadedness since discharge on 03/25. Hospitalized 03/22-03/25 secondary to hemorrhagic shock in setting of lower GI bleed due to Coumadin coagulopathy and diarrheal illness secondary to COVID-19 Suspect persistent lower GI bleeding in setting of acute inflammatory/infectious colitis versus colitis from Covid resulting in hemorrhagic shock with component of hypovolemic shock in setting of profuse diarrhea and poor intake. CT a/p from 03/25:IMPRESSION: Wall thickening and vascular prominence of the transverse colon and hepatic flexure may reflect infectious/inflammatory colitis. Otherwise no acute abnormalities. Was initially admitted to ICU. Required pressors briefly for persistent hypotension despite fluid resuscitation. Sigmoidoscopy revealed mild diffuse colitis without active bleeding. Biopsies were taken. Hemoglobin remains stable in 9s Continue cefepime and Flagyl for now Discussed with RN to also document vol of diarrhea to help get a better sense of fluid losses Current I/O not a true reflection of fluid status Still having some loose stool every 1-2h during the day Continue IVF for now Will follow up with GI on pathology results to see if steroid is indicated (6) Elevated troponin: Plan: Likely due to demand ischemia from hypovolemic shock. Trended down Continue telemetry monitoring (7) Anemia due to GI blood loss: Plan: On admission H&H 8.8 and 26.5, Status post 2 PRBC so far Hemoglobin is remained stable since yesterday Continue to monitor CBC every 6 hours Transfuse as needed to keep hemoglobin above 8 (8) Hypokalemia: (9) Hypomagnesemia: Plan: Due to GI lossess Hypomagnesemia Hypokalemia Hypophosphatemia Replete and monitor (10) COVID: Plan: First initial Covid test on 03/22, positive Symptoms started on 02/25 No acute disease on chest x-ray on admission. Currently on isolation (11) Atrial flutter: Plan: Rate and rhythm controlled on sotalol Warfarin has been on hold in setting of lower GI bleed since last admission (12) CAD (coronary artery disease): Plan: hx of stent On atorvastatin and metoprolol as outpatient Previously was on lisinopril but discontinued secondary to hypotension (13) T2DM (type 2 diabetes mellitus): Plan: Last A1c 6.9 on 03/23, well controlled Hold Metformin Lantus/NovoLog per protocol (14) HTN (hypertension): Plan: Patient with history of hypertension On metoprolol as outpatient Prior to most recent admission was also on lisinopril 10 mg daily, furosemide 40 mg daily and potassium chloride Lisinopril, furosemide and KCl were discontinued in setting of hypotension Dopplers negative for DVT Avoid any antihypertensives for now (15) Hypoalbuminemia: Plan: Albumin 1.4 (16) Prolonged QT interval: Plan: On admission QTC 527 MS Avoid QTC prolonging meds (17) DVT prophylaxis: Plan: SCD/teds PCP: Krupa Cornejo FULL CODE Admission and Anticipated Discharge Date Admission Date: March 29, 2021 Subjective 61-year-old man with history of CAD, DM type II, hypertension, diabetic nephropathy, secondary polycythemia, a flutter on sotalol, previously on warfarin until recent GI bleed during recent hospitalization [was discharged on 03/25/2021] who presents with persistent diarrhea, hematochezia and lightheadedness since discharge. Being managed for anemia due to GI bleed, hypovolemic shock. Patient was admitted to the ICU due to persistent hypotension after fluid resuscitation and admission, requiring pressors. Has been off pressors since this morning. Got two PRBCs. Sigmoidoscopy on 03/30/2021 revealed diffuse mild inflammation in the entire colon, no evidence of active GI bleed, nonbleeding internal hemorrhoids. Biopsies were taken. Patient seen and examined Patient continues to have diarrhea with blood streaks. Diarrhea described as mostly mucoid per RN No abd pain today Denies any dizziness Denies any palpitations, shortness of breath, cough, chest pain Review of Systems Respiratory: no cough and no dyspnea Cardiovascular: + edema; no chest pain and no palpitations Gastrointestinal: + diarrhea/loose stools and + blood in stools; no abdominal pain and no nausea Genitourinary: no dysuria, no difficulty urinating or no urinary frequency Integumentary: Leg swelling Neurologic: no generalized weakness and no headache(s) Psychiatric: no depression and no anxiety Physical Exam Constitutional: + well hydrated; no acute distress ENMT: external ear and nose normal, oropharynx normal Respiratory: normal respiratory effort, lungs clear to auscultation Cardiovascular: RRR S1 S2 Gastrointestinal (Abdomen): normal bowel sounds, soft, nontender, no hepatosplenomegaly Musculoskeletal: Bilateral pitting pedal edema Neurologic: PERRL, EOMI, accommodation nl, no face palsy, no dysarthria Psychiatric: A+Ox3, euthymic affect Results & Data Results & Data ([facility]) Vital Signs (Past 12 Hours) Vital Signs Temp Pulse Pulse Resp BP Pulse Ox 04/02/21 10:55 36.4 C L 82 16 97/65 L 98 04/02/21 09:32 80 04/02/21 07:46 83 90/61 L 04/02/21 06:30 36.4 C L 78 16 83/56 L 98 04/02/21 04:03 36.6 C 85 22 87/65 L 95 04/01/21 23:59 76 Laboratory Results Abnormal lab results 04/01/21 04/01/21 04/02/21 Range/Units 17:14 20:11 05:47 RBC (4.7-6.1) M/uL Hgb (14.0-18.0) g/dL Hct (42-52) % RDW Std Deviation (36.4-46.3) fL RDW Coeff of Mychal (11.5-14.5) % Potassium 3.4 L (3.5-5.1) mmol/L Chloride 112 H (98-107) mmol/L BUN 6 L (7-18) mg/dl BUN/Creatinine Ratio 8.2 L (10-20) Glucose 122 H (70-99) mg/dl POC Glucose 144 H 132 H (70-99) mg/dl Calcium 6.4 L (8.5-10.1) mg/dl Phosphorus 2.0 L (2.5-4.9) mg/dl Magnesium 1.4 L (1.8-2.4) mg/dl 04/02/21 04/02/21 04/02/21 Range/Units 05:47 08:12 11:49 RBC 3.10 L (4.7-6.1) M/uL Hgb 9.5 L (14.0-18.0) g/dL Hct 28.8 L (42-52) % RDW Std Deviation 57.8 H (36.4-46.3) fL RDW Coeff of Mychal 17.1 H (11.5-14.5) % Potassium (3.5-5.1) mmol/L Chloride (98-107) mmol/L BUN (7-18) mg/dl BUN/Creatinine Ratio (10-20) Glucose (70-99) mg/dl POC Glucose 113 H 166 H (70-99) mg/dl Calcium (8.5-10.1) mg/dl Phosphorus (2.5-4.9) mg/dl Magnesium (1.8-2.4) mg/dl 04/02/21 Range/Units 16:33 RBC (4.7-6.1) M/uL Hgb (14.0-18.0) g/dL Hct (42-52) % RDW Std Deviation (36.4-46.3) fL RDW Coeff of Mychal (11.5-14.5) % Potassium (3.5-5.1) mmol/L Chloride (98-107) mmol/L BUN (7-18) mg/dl BUN/Creatinine Ratio (10-20) Glucose (70-99) mg/dl POC Glucose 131 H (70-99) mg/dl Calcium (8.5-10.1) mg/dl Phosphorus (2.5-4.9) mg/dl Magnesium (1.8-2.4) mg/dl (1) HTN (hypertension) Hypertension type: essential hypertension Qualified Code(s): I10 - Essential (primary) hypertension
[2021-04-02 17:39] LABS: Hemoglobin 9.2 g/dL (14.0-18.0); Mean Corpuscular Hemoglobin 30.7 pg (25-34); Mean Corpuscular Hgb Conc 32.9 g/dL (32-36); Mean Corpuscular Volume 93.3 fL (80-100); Mean Platelet Volume 9.9 fL (7.4-10.4); Platelet Count 276 K/uL (130-400); RDW Coefficient of Variation 17.2 % (11.5-14.5); RDW Standard Deviation 58.7 fL (36.4-46.3); White Blood Count 12.26 K/uL (4.8-10.8)
[2021-04-02 17:55] LABS: Calcium 6.3 mg/dl (8.5-10.1); Creatinine Clr Calc Pharmacy 151.4 ml/min; Est GFR (African American) 117.5 ml/min; Est GFR (Non-African American) 101.4 ml/min; Magnesium 1.7 mg/dl (1.8-2.4); Phosphorus 2.4 mg/dl (2.5-4.9); Potassium 3.8 mmol/L (3.5-5.1)
[2021-04-02] MEDS ORDERED: CALCIUM CHLORIDE 10% 1,000 MG in SODIUM CHLORIDE 0.9% 50 ML IV ONE (18:30)
[2021-04-02] MEDS ORDERED: POTASSIUM PHOSPHATE 24 MMOL in SODIUM CHLORIDE 0.9% 500 ML IV ONE (18:30)
--- NOTE | 2021-04-02 20:46 | Ultrasound Report ---
ULTRASOUND LEFT UPPER EXTREMITY VENOUS CLINICAL HISTORY: Left arm swelling. Covid. COMPARISON STUDY: No priors. TECHNIQUE: Real-time, grayscale, and color Doppler sonography of the deep veins of the left upper ext remity is performed. Compression and augmentation were utilized. FINDINGS: There is no sonographic evidence of deep venous thrombosis identified in the left upper ext remity. The left internal jugular, axillary, and brachial veins are patent and normally compressible. Normal venous waveforms and augmentation are seen within the left subclavian vein. The forearm vesse ls could not be assessed due to overlying bandage material. There is nearly occlusive to occlusive singh perficial venous thrombus identified within both the left basilic vein and throughout the left cephal ic vein. This extends over 5 cm in length. IMPRESSION: 1. There is no sonographic evidence of deep venous thrombosis identified in the left upper extremity. 2. There is extensive nearly occlusive to occlusive superficial venous thrombus within both the cepha lic and basilic veins. ACT 112: Negative or not required by law. Electronically signed by: Clifford Brizuela M.D. 04/02/2021 8:45 PM
[2021-04-02] MEDS: ATORVASTATIN 40 MG TAB PO SCH (21:13)
[2021-04-03] MEDS: metroNIDAZOLE 500 MG/100 ML BAG IV SCH ×2 (00:34→09:22)
[2021-04-03] MEDS: CEFEPIME 2,000 MG in SYRINGE 0 ML IV SCH ×2 (00:35→09:20)
[2021-04-03] MEDS: PANTOprazole 40 MG in DEXTROSE 5% 100 ML IV SCH ×2 (05:28→09:20)
[2021-04-03 06:21] LABS: Hemoglobin 9.5 g/dL (14.0-18.0); Mean Corpuscular Hemoglobin 30.5 pg (25-34); Mean Corpuscular Hgb Conc 32.8 g/dL (32-36); Mean Corpuscular Volume 93.2 fL (80-100); Mean Platelet Volume 9.8 fL (7.4-10.4); Platelet Count 284 K/uL (130-400); Red Blood Count 3.11 M/uL (4.7-6.1); White Blood Count 8.81 K/uL (4.8-10.8)
[2021-04-03 07:06] LABS: BUN Creatinine Ratio 8.2 (10-20); Calcium 6.9 mg/dl (8.5-10.1); Creatinine Clr Calc Pharmacy 179.7 ml/min; Est GFR (African American) 125.8 ml/min; Est GFR (Non-African American) 108.5 ml/min; Magnesium 1.8 mg/dl (1.8-2.4); Phosphorus 2.6 mg/dl (2.5-4.9); Potassium 3.8 mmol/L (3.5-5.1)
[2021-04-03] MEDS: INSULIN ASPART 100 UNITS/ML 3 ML PEN SC SCH ×4 (08:29→20:57)
[2021-04-03] MEDS: SOTALOL HCL 80 MG TAB PO SCH ×2 (09:23→20:58)
[2021-04-03] MEDS: THIAMINE HCL 100 MG TAB PO SCH ×2 (09:23→20:52)
[2021-04-03] MEDS: ZINC SULFATE 220 MG CAPSULE PO SCH (09:23)
[2021-04-03] MEDS: NORMOSOL-R 1,000 ML IV SCH (09:23)
[2021-04-03] MEDS: CHOLECALCIFEROL 1,000 UNITS 25 MCG TAB PO SCH (09:23)
[2021-04-03] MEDS: MULTIVITAMIN TAB PO SCH (09:23)
[2021-04-03] MEDS: INSULIN GLARGINE SOLOSTAR 100 UNITS/ML 3 ML PEN SC SCH ×2 (09:25→20:53)
--- NOTE | 2021-04-03 09:25 | Communication Note ---
Date of Service: April 03, 2021 Records review. 61 yr old male. COVID +. Rectal bleeding. Underwent flex sig on 03/25/21: diffuse non specific inflammation through to the left transverse colon. Colon bx mild chronic colitis. Today: Hb stable at 9.5. 3-4 BMs/day, loose, blood tinged. Plan: Budesonide 9mg/day x 6 wks. No GI indication for continuing antibiotics. Will see in GI office follow up in approx 4 wks (our office will contact him to arrange). - At that time if resolution of symptoms, then will taper budesonide. - If continues symptoms on budesonide, then will tx as UC and escalate therapy. GI will sign off. Please notify us if new/worsening GI issues. I have discussed the patient's management with the advanced practitioner. Please refer to the nurse practitioner's note for the documented findings and plan of care. Nonspecific colitis, some pathologic features of chronic disease, unclear if has underlying UC. Plan to treat with Budesonide and see as OP in 4 weeks. Recall if needed.
[2021-04-03] MEDS ORDERED: CALCIUM GLUCONATE 10% 1,000 MG in SODIUM CHLORIDE 0.9% 50 ML IV ONE (09:45)
[2021-04-03] MEDS: MAGNESIUM OXIDE 400 MG TAB PO SCH (10:54)
[2021-04-03] MEDS: BUDESONIDE EC 3 MG CAP PO SCH (10:55)
--- NOTE | 2021-04-03 11:23 | Pharmacy Report ---
Pharmacy Glycemic Short Note 2 - Date of Service April 03, 2021 - Glycemic Short BSG Results (Last 24 hours): 04/01/21 04/02/21 04/02/21 20:11 11:49 16:33 Glucose POC Glucose 132 H 166 H 131 H 04/02/21 04/02/21 04/03/21 17:17 20:19 06:00 Glucose 128 H 108 H POC Glucose 102 H 04/03/21 08:11 Glucose POC Glucose 113 H OUTPATIENT ANTIDIABETIC REGIMEN: * Metformin 1gm PO BID * Trulicity 1.5mg SQ weekly (last dose 03/25) * A1c = 6.9% 03/23/21 ASSESSMENT: 04/03 * BSGs currently well controlled w/ current regimen * Fasting BSG 113 is at goal this AM with 5 units basal on board - will continue current BID Lantus scale as it has performed well * Novolog CF and CR have controlled post-prandial BSGs last 2 days - will continue the same PLAN FOR INPATIENT GLYCEMIC CONTROL: * Hold outpatient oral diabetes medications (metformin, Trulicity) * Basal insulin * Lantus SQ BID per scale: 0 units if BSG less than 110, 5 units if BSG 110- 150, 8 units if BSG greater than 150 * Bolus insulin * NovoLog per scale ACHS or Q6hrs while NPO * Goal Range: Low 120 mg/dL - High 160 mg/dL * Correction Factor: 25 mg/dL/unit * Nutritional / Prandial insulin per carb ratio of 1 unit per 8 grams CHO consumed PLAN FOR DISCHARGE: * may resume outpt regimen of metformin and Trulicity if no contraindications present
--- NOTE | 2021-04-03 14:42 | Hospitalist Progress Note ---
Date of Service April 03, 2021 Assessment & Plan (1) Shock: (2) Hypotension: (3) Colitis: (4) Acute GI bleeding: (5) Lactic acidosis: Plan: 61-year-old male who has a significant past medical history of atrial flutter on sotalol therapy and previously anticoagulated with warfarin until recent GI bleeding, CAD, T2DM, HTN, HLD, microalbuminuric diabetic nephropathy, secondary polycythemia who presents to ED secondary to persistent diarrhea, hematochezia and lightheadedness since discharge on 03/25. Hospitalized 03/22-03/25 secondary to hemorrhagic shock in setting of lower GI bleed due to Coumadin coagulopathy and diarrheal illness secondary to COVID-19 Suspect persistent lower GI bleeding in setting of acute inflammatory/infectious colitis versus colitis from Covid resulting in hemorrhagic shock with component of hypovolemic shock in setting of profuse diarrhea and poor intake. CT a/p from 03/25:IMPRESSION: Wall thickening and vascular prominence of the transverse colon and hepatic flexure may reflect infectious/inflammatory colitis. Otherwise no acute abnormalities. Was initially admitted to ICU. Required pressors briefly for persistent hypotension despite fluid resuscitation. Sigmoidoscopy revealed mild diffuse colitis without active bleeding. Biopsies were taken and pathology showed mild chronic colitis with moderate activity (active inflammation) GI recommendations noted Antibiotics discontinued Started on budesonide today Hb has been stable in 9s since after 2PRBC on admission Stop IVF Monitor I/O (6) Elevated troponin: Plan: Likely due to demand ischemia from hypovolemic shock. Trended down Continue telemetry monitoring (7) Anemia due to GI blood loss: Plan: On admission H&H 8.8 and 26.5, Status post 2 PRBC so far Hemoglobin is remained stable in 9s since (8) Hypokalemia: (9) Hypomagnesemia: Plan: Electrolyte abnormalities [hypokalemia, hypophosphatemia, hypomagnesemia hypocalcemia] Due to GI losses (10) COVID: Plan: First initial Covid test on 03/22, positive Symptoms started on 02/25 No acute disease on chest x-ray on admission. Remove isolation (11) Atrial flutter: Plan: Rate and rhythm controlled on sotalol Warfarin has been on hold in setting of lower GI bleed since last admission (12) CAD (coronary artery disease): Plan: hx of stent On atorvastatin and metoprolol as outpatient Previously was on lisinopril but discontinued secondary to hypotension (13) T2DM (type 2 diabetes mellitus): Plan: Last A1c 6.9 on 03/23, well controlled Hold Metformin Lantus/NovoLog per protocol (14) HTN (hypertension): Plan: Patient with history of hypertension On metoprolol as outpatient Prior to most recent admission was also on lisinopril 10 mg daily, furosemide 40 mg daily and potassium chloride Lisinopril, furosemide and KCl were discontinued in setting of hypotension in the last admission Avoid any antihypertensives for now May consider diuretics later if BP improves. Elevate legs (15) Hypoalbuminemia: Plan: Albumin 1.4 (16) Prolonged QT interval: Plan: On admission QTC 527 MS Avoid QTC prolonging meds (17) DVT prophylaxis: Plan: SCD/teds Encourage activity LUE Doppler show superficial venous thrombosis PT/OT eval PCP: Krupa Cornejo FULL CODE Admission and Anticipated Discharge Date Admission Date: March 29, 2021 Subjective 61-year-old man with history of CAD, DM type II, hypertension, diabetic nephropathy, secondary polycythemia, a flutter on sotalol, previously on warfarin until recent GI bleed during recent hospitalization [was discharged on 03/25/2021] who presents with persistent diarrhea, hematochezia and lightheadedness since discharge. Being managed for anemia due to GI bleed, hypovolemic shock. Patient was admitted to the ICU due to persistent hypotension after fluid resuscitation and admission, requiring pressors. Has been off pressors since this morning. Got two PRBCs. Sigmoidoscopy on 03/30/2021 revealed diffuse mild inflammation in the entire colon, no evidence of active GI bleed, nonbleeding internal hemorrhoids. Biopsies were taken. Patient seen and examined Patient reports frequency of BM reduced. Reported about 6-7 BM yesterday. Some were minimal mucoid, some more tenesmus without BM Some blood streaks in some BM No abd pain today Reported some dizziness yesterday when he was up and about Denies any palpitations, shortness of breath, cough, chest pain Review of Systems Respiratory: no cough and no dyspnea Cardiovascular: + edema; no chest pain and no palpitations Gastrointestinal: + diarrhea/loose stools and + blood in stools; no abdominal pain and no nausea Genitourinary: no dysuria, no difficulty urinating or no urinary frequency Integumentary: Leg swelling Neurologic: no generalized weakness and no headache(s) Psychiatric: no depression and no anxiety Physical Exam Constitutional: + well hydrated; no acute distress ENMT: external ear and nose normal, oropharynx normal Respiratory: normal respiratory effort, lungs clear to auscultation Cardiovascular: RRR S1 S2 Gastrointestinal (Abdomen): normal bowel sounds, soft, nontender, no hepatosplenomegaly Musculoskeletal: Bilateral leg edema Neurologic: PERRL, EOMI, accommodation nl, no face palsy, no dysarthria Psychiatric: A+Ox3, euthymic affect Results & Data Results & Data ([facility]) Vital Signs (Past 12 Hours) Vital Signs Temp Pulse Pulse Resp BP Pulse Ox 04/03/21 12:00 91/60 L 04/03/21 11:19 36.5 C 91 H 18 81/55 L 98 04/03/21 08:00 83 04/03/21 07:57 36.5 C 80 19 102/73 97 04/03/21 03:38 36.9 C 84 18 95/65 L 97 Laboratory Results Abnormal lab results 04/01/21 04/02/21 04/02/21 Range/Units 20:11 16:33 17:17 WBC 12.26 H (4.8-10.8) K/uL RBC 3.00 L (4.7-6.1) M/uL Hgb 9.2 L (14.0-18.0) g/dL Hct 28.0 L (42-52) % RDW Std Deviation 58.7 H (36.4-46.3) fL RDW Coeff of Mychal 17.2 H (11.5-14.5) % Chloride (98-107) mmol/L BUN (7-18) mg/dl BUN/Creatinine Ratio (10-20) Glucose (70-99) mg/dl POC Glucose 132 H 131 H (70-99) mg/dl Calcium (8.5-10.1) mg/dl Ionized Calcium (1.12-1.32) mmol/L Phosphorus (2.5-4.9) mg/dl Magnesium (1.8-2.4) mg/dl 04/02/21 04/02/21 04/02/21 Range/Units 17:17 17:23 20:19 WBC (4.8-10.8) K/uL RBC (4.7-6.1) M/uL Hgb (14.0-18.0) g/dL Hct (42-52) % RDW Std Deviation (36.4-46.3) fL RDW Coeff of Mychal (11.5-14.5) % Chloride 113 H (98-107) mmol/L BUN 6 L (7-18) mg/dl BUN/Creatinine Ratio 8.0 L (10-20) Glucose 128 H (70-99) mg/dl POC Glucose 102 H (70-99) mg/dl Calcium 6.3 L (8.5-10.1) mg/dl Ionized Calcium 0.92 L (1.12-1.32) mmol/L Phosphorus 2.4 L (2.5-4.9) mg/dl Magnesium 1.7 L (1.8-2.4) mg/dl 04/03/21 04/03/21 04/03/21 Range/Units 06:00 06:00 06:00 WBC (4.8-10.8) K/uL RBC 3.11 L (4.7-6.1) M/uL Hgb 9.5 L (14.0-18.0) g/dL Hct 29.0 L (42-52) % RDW Std Deviation 58.0 H (36.4-46.3) fL RDW Coeff of Mychal 17.0 H (11.5-14.5) % Chloride 113 H (98-107) mmol/L BUN 5 L (7-18) mg/dl BUN/Creatinine Ratio 8.2 L (10-20) Glucose 108 H (70-99) mg/dl POC Glucose (70-99) mg/dl Calcium 6.9 L (8.5-10.1) mg/dl Ionized Calcium 0.99 L (1.12-1.32) mmol/L Phosphorus (2.5-4.9) mg/dl Magnesium (1.8-2.4) mg/dl 04/03/21 04/03/21 Range/Units 08:11 11:51 WBC (4.8-10.8) K/uL RBC (4.7-6.1) M/uL Hgb (14.0-18.0) g/dL Hct (42-52) % RDW Std Deviation (36.4-46.3) fL RDW Coeff of Mychal (11.5-14.5) % Chloride (98-107) mmol/L BUN (7-18) mg/dl BUN/Creatinine Ratio (10-20) Glucose (70-99) mg/dl POC Glucose 113 H 208 H (70-99) mg/dl Calcium (8.5-10.1) mg/dl Ionized Calcium (1.12-1.32) mmol/L Phosphorus (2.5-4.9) mg/dl Magnesium (1.8-2.4) mg/dl (1) HTN (hypertension) Hypertension type: essential hypertension Qualified Code(s): I10 - Essential (primary) hypertension
[2021-04-03 17:29] LABS: Hematocrit (blood only) 26.7 % (42-52); Hemoglobin 8.9 g/dL (14.0-18.0); Mean Corpuscular Hemoglobin 30.7 pg (25-34); Mean Corpuscular Hgb Conc 33.3 g/dL (32-36); Mean Corpuscular Volume 92.1 fL (80-100); Mean Platelet Volume 10.1 fL (7.4-10.4); Platelet Count 281 K/uL (130-400); RDW Coefficient of Variation 16.9 % (11.5-14.5); RDW Standard Deviation 57.3 fL (36.4-46.3); White Blood Count 12.43 K/uL (4.8-10.8)
[2021-04-03] MEDS: ATORVASTATIN 40 MG TAB PO SCH (20:51)
[2021-04-04 06:33] LABS: Hematocrit (blood only) 28.6 % (42-52); Hemoglobin 9.4 g/dL (14.0-18.0); Mean Corpuscular Hemoglobin 30.7 pg (25-34); Mean Corpuscular Hgb Conc 32.9 g/dL (32-36); Mean Corpuscular Volume 93.5 fL (80-100); Mean Platelet Volume 10.1 fL (7.4-10.4); Platelet Count 288 K/uL (130-400); RDW Standard Deviation 58.3 fL (36.4-46.3); Red Blood Count 3.06 M/uL (4.7-6.1); White Blood Count 9.65 K/uL (4.8-10.8)
[2021-04-04 07:02] LABS: BUN Creatinine Ratio 10.1 (10-20); Calcium 7.1 mg/dl (8.5-10.1); Est GFR (African American) 128.4 ml/min; Est GFR (Non-African American) 110.8 ml/min; Magnesium 1.7 mg/dl (1.8-2.4); Potassium 3.9 mmol/L (3.5-5.1)
[2021-04-04 07:03] LABS: Phosphorus 2.1 mg/dl (2.5-4.9)
[2021-04-04] MEDS: ICU ELECTROLYTE REPLACEMENT PROTOCOL SCH (07:37)
[2021-04-04] MEDS: BUDESONIDE EC 3 MG CAP PO SCH (08:33)
[2021-04-04] MEDS: CHOLECALCIFEROL 1,000 UNITS 25 MCG TAB PO SCH (08:33)
[2021-04-04] MEDS: INSULIN GLARGINE SOLOSTAR 100 UNITS/ML 3 ML PEN SC SCH ×2 (08:34→21:07)
[2021-04-04] MEDS: SOTALOL HCL 80 MG TAB PO SCH ×2 (08:35→20:41)
[2021-04-04] MEDS: MAGNESIUM OXIDE 400 MG TAB PO SCH (08:35)
[2021-04-04] MEDS: MULTIVITAMIN TAB PO SCH (08:35)
[2021-04-04] MEDS: THIAMINE HCL 100 MG TAB PO SCH ×2 (08:36→20:41)
[2021-04-04] MEDS: INSULIN ASPART 100 UNITS/ML 3 ML PEN SC SCH ×4 (08:37→20:39)
[2021-04-04] MEDS: ZINC SULFATE 220 MG CAPSULE PO SCH (08:37)
[2021-04-04] MEDS ORDERED: POTASSIUM PHOS 3 MMOL/1 ML INFUSION IV ONE (09:29)
[2021-04-04] MEDS ORDERED: POTASSIUM PHOSPHATE 15 MMOL in SODIUM CHLORIDE 0.9% 250 ML IV ONE (09:45)
[2021-04-04] MEDS ORDERED: SODIUM CHLORIDE 0.9% 500 ML IV ONE (09:59)
[2021-04-04] MEDS: LOPERAMIDE HCL 2 MG CAP PO PRN ×2 (10:27→20:38)
[2021-04-04] MEDS: MAGNESIUM CHLORIDE 64MG DELAYED REL TAB PO SCH ×2 (13:00→20:39)
[2021-04-04 15:05] LABS: Hematocrit (blood only) 27.2 % (42-52); Hemoglobin 8.9 g/dL (14.0-18.0)
[2021-04-04] MEDS ORDERED: ALBUMIN 25% 12.5 GM/50 ML VIAL IV ONE (16:00)
--- NOTE | 2021-04-04 17:46 | Hospitalist Progress Note ---
Date of Service April 04, 2021 Assessment & Plan (1) Shock: (2) Hypotension: (3) Colitis: (4) Acute GI bleeding: (5) Lactic acidosis: Plan: Patient is a 61 yr male with H/O Atrial flutter on sotalol therapy and previously anticoagulated with warfarin until recent GI bleeding, CAD, T2DM, HTN, HLD, microalbuminuric diabetic nephropathy, secondary polycythemia who presents to ED secondary to persistent diarrhea, hematochezia and lightheadedness since discharge on 03/25. Hospitalized 03/22-03/25 secondary to hemorrhagic shock in setting of lower GI bleed due to Coumadin coagulopathy and diarrheal illness secondary to COVID-19 Suspect persistent lower GI bleeding in setting of acute inflammatory/infectious colitis versus colitis from Covid resulting in hemorrhagic shock with component of hypovolemic shock in setting of profuse diarrhea and poor intake. --CT ABD:03/25:IMPRESSION: Wall thickening and vascular prominence of the transverse colon and hepatic flexure may reflect infectious/inflammatory colitis. Otherwise no acute abnormalities. -Required pressors briefly for persistent hypotension despite fluid resuscitation. -S/P Sigmoidoscopy revealed mild diffuse colitis without active bleeding. Biopsies were taken and pathology showed mild chronic colitis with moderate activity (active inflammation) - S/P 2 units PRBCs -Monitor H&H -Appreciate GI Input -Continue budesonide -Imodium PRN IVF discontinued as patient in hypervolemic state Monitor I/O Replace electrolytes as needed Needs follow up with GI upon discharge (6) Elevated troponin: Plan: Likely due to demand ischemia from hypovolemic shock. Trended down Denies chest Pain (7) Anemia due to GI blood loss: Plan: On admission H&H 8.8 and 26.5, S/P 2 PRBC Hb:8.9 today Monitor CBC (8) Hypokalemia: (9) Hypomagnesemia: Plan: Electrolyte abnormalities [hypokalemia, hypophosphatemia, hypomagnesemia hypocalcemia] Due to GI losses Replace as needed (10) COVID: Plan: First initial Covid test on 03/22, positive Symptoms started on 02/25 No acute disease on chest x-ray on admission. Saturating well on Room Air (11) Atrial flutter: Plan: Rate and rhythm controlled on sotalol Warfarin has been on hold in setting of lower GI bleed since last admission (12) CAD (coronary artery disease): Plan: H/O stent Previously was on lisinopril but discontinued secondary to hypotension Continue atorvastatin Also on sotalol (13) T2DM (type 2 diabetes mellitus): Plan: Last A1c 6.9 on 03/23, well controlled Hold Metformin Lantus/NovoLog per protocol (14) HTN (hypertension): Plan: H/O hypertension On metoprolol as outpatient Prior to most recent admission was also on lisinopril 10 mg daily, furosemide 40 mg daily and potassium chloride Lisinopril, furosemide and KCl were discontinued in setting of hypotension in the last admission Avoid any antihypertensives for now Consider to resume diuretics if BP tolerates Monitor BP (15) Hypoalbuminemia: Plan: Albumin 1.4 (16) Prolonged QT interval: Plan: On admission QTC 527 MS Avoid QTC prolonging meds (17) DVT prophylaxis: Plan: SCD/teds Re: GI Bleeding Encourage activity LUE Doppler show superficial venous thrombosis Code Status FULL CODE Disposition PT/OT prior to discharge Admission and Anticipated Discharge Date Admission Date: March 29, 2021 Subjective Patient is seen and examined at bedside Continues to have diarrhea with hematochezia Discussed with gastroenterology today Denies any chest pain, shortness of breath, dizziness, nausea, vomiting, abdominal pain Blood pressure relatively low today Offers no other complaints Review of Systems Review of Systems: All systems reviewed & are unremarkable except as noted in Subjective Physical Exam Physical Exam: Physical Exam: Vitals signs as noted above General Appearance:Morbidly Obese, no apparent distress Head: normocephalic, Atraumatic Eyes: normal inspection, EOMI Neck: supple, Trachea midline Respiratory/Chest: Normal breath sounds, CTA Cardiovascular: S1, S2, No murmur Abdomen/GI:Soft, Non tender, Bowel sounds present Extremities/Musculoskeletal:normal inspection, 2+ B/L LE edema Neurologic/Psych:AAOX3, grossly no focal neurological deficits Skin: normal color, warm Results & Data Results & Data ([facility]) Vital Signs (Past 12 Hours) Vital Signs Temp Pulse Pulse Resp BP Pulse Ox Pulse Ox 04/04/21 14:46 36.7 C 90 18 86/56 L 99 04/04/21 11:42 97 04/04/21 10:52 36.6 C 87 18 94/63 L 99 04/04/21 10:41 101 H 04/04/21 07:04 37.0 C 89 18 95/61 L 97 Laboratory Results Short CBC 04/04/21 04/04/21 Range/Units 05:54 14:29 WBC 9.65 (4.8-10.8) K/uL Hgb 9.4 L 8.9 L (14.0-18.0) g/dL Hct 28.6 L 27.2 L (42-52) % Plt Count 288 (130-400) K/uL BMP 04/04/21 05:54 Sodium 140 Potassium 3.9 Chloride 113 H Carbon Dioxide 24 BUN 6 L Creatinine 0.58 L Glucose 97 Calcium 7.1 L (1) HTN (hypertension) Hypertension type: essential hypertension Qualified Code(s): I10 - Essential (primary) hypertension
[2021-04-04] MEDS: ATORVASTATIN 40 MG TAB PO SCH (20:39)
[2021-04-04 23:30] LABS: Hematocrit (blood only) 25.1 % (42-52); Hemoglobin 8.3 g/dL (14.0-18.0)
[2021-04-05] MEDS ORDERED: ALBUMIN 25% 100 mL 25 GM/100 ML VIAL IV ONE
[2021-04-05] MEDS ORDERED: MAGNESIUM SULFATE / D5W 1 GM/100 ML BAG IV ONE
[2021-04-05 00:51] LABS: Hematocrit (blood only) 25.9 % (42-52); Hemoglobin 8.7 g/dL (14.0-18.0)
[2021-04-05] MEDS: LOPERAMIDE HCL 2 MG CAP PO PRN ×4 (04:57→23:28)
[2021-04-05 07:04] LABS: Hematocrit (blood only) 24.5 % (42-52); Mean Corpuscular Hemoglobin 30.7 pg (25-34); Mean Corpuscular Hgb Conc 32.7 g/dL (32-36); Mean Corpuscular Volume 93.9 fL (80-100); Platelet Count 256 K/uL (130-400); RDW Coefficient of Variation 17.1 % (11.5-14.5); RDW Standard Deviation 58.5 fL (36.4-46.3); Red Blood Count 2.61 M/uL (4.7-6.1)
[2021-04-05 07:32] LABS: BUN Creatinine Ratio 7.4 (10-20); Calcium 7.2 mg/dl (8.5-10.1); Creatinine Clr Calc Pharmacy 214.7 ml/min; Est GFR (African American) 134.3 ml/min; Est GFR (Non-African American) 115.9 ml/min; Magnesium 1.7 mg/dl (1.8-2.4); Potassium 4.1 mmol/L (3.5-5.1)
[2021-04-05] MEDS: SOTALOL HCL 80 MG TAB PO SCH ×2 (08:08→20:37)
[2021-04-05] MEDS: THIAMINE HCL 100 MG TAB PO SCH ×2 (08:11→20:39)
[2021-04-05] MEDS: BUDESONIDE EC 3 MG CAP PO SCH (08:11)
[2021-04-05] MEDS: MULTIVITAMIN TAB PO SCH (08:11)
[2021-04-05] MEDS: CHOLECALCIFEROL 1,000 UNITS 25 MCG TAB PO SCH (08:12)
[2021-04-05] MEDS: MAGNESIUM CHLORIDE 64MG DELAYED REL TAB PO SCH ×2 (08:12→12:39)
[2021-04-05] MEDS: ZINC SULFATE 220 MG CAPSULE PO SCH (08:12)
[2021-04-05] MEDS: INSULIN GLARGINE SOLOSTAR 100 UNITS/ML 3 ML PEN SC SCH ×2 (08:16→20:42)
[2021-04-05] MEDS: INSULIN ASPART 100 UNITS/ML 3 ML PEN SC SCH ×4 (08:17→20:41)
--- NOTE | 2021-04-05 10:30 | Pharmacy Report ---
Pharmacy Glycemic Sign Off Nt - Date of Service April 05, 2021 - Assessment & Plan ASSESSMENT: * Pharmacy was consulted on 03/29/21 for glycemic control and to write orders per [facility] inpatient glycemic control protocol. * Major changes made by pharmacy to antidiabetic regimen include: * Holding Oral agents and GLP1 and using SQ basal bolus insulin regimen with Lantus + NovoLog * Patient has been receiving/requiring ~25 units of insulin per day for adequate glycemic control * BSGs ranging 99-208 mg/dl * Regimen has only required minor adjustments over the past 48hrs to achieve this level of control * Do not anticipate further changes in patient status that would quickly deteriorate glycemic control (i.e. patient to be NPO for upcoming procedure, steroids tapering, starting tube feedings, etc). * Please see recommendations for outpatient antidiabetic regimen below. PLAN FOR INPATIENT GLYCEMIC CONTROL: No changes needed to current regimen. * No basal insulin required * Continue NovoLog per scale ACHS/Q6hrs while NPO * Goal range = 120-160 mg/dl * CF = 25 mg/dl/unit * CR = 1 unit for ever 8 g CHO consumed * Pharmacy is signing off of glycemic consult and will no longer be making adjustments to inpatient regimen. Please feel free to re-consult if needed. Thank you. DISCHARGE RECOMMENDATIONS: * Metformin 1gm PO BID * Trulicity 1.5mg SQ weekly (last dose 03/25) * A1c = 6.9% 03/23/21
[2021-04-05] MEDS ORDERED: POTASSIUM PHOS 3 MMOL/1 ML INFUSION IV ONE (11:00)
[2021-04-05] MEDS ORDERED: POTASSIUM PHOSPHATE 15 MMOL in SODIUM CHLORIDE 0.9% 250 ML IV ONE (11:15)
[2021-04-05] MEDS: DIPHENOXYLATE/ATROPINE 2.5/0.025MG TAB PO SCH ×2 (11:47→20:40)
[2021-04-05] MEDS: POT PHOSPHATE MONOBASIC W/ SOD TAB PO SCH ×3 (12:37→20:38)
[2021-04-05 14:35] LABS: Hematocrit (blood only) 24.9 % (42-52); Hemoglobin 8.2 g/dL (14.0-18.0)
--- NOTE | 2021-04-05 16:26 | Hospitalist Progress Note ---
Date of Service April 05, 2021 Assessment & Plan (1) Shock: (2) Hypotension: (3) Colitis: (4) Acute GI bleeding: (5) Lactic acidosis: Plan: Patient is a 61 yr male with H/O Atrial flutter on sotalol therapy and previously anticoagulated with warfarin until recent GI bleeding, CAD, T2DM, HTN, HLD, microalbuminuric diabetic nephropathy, secondary polycythemia who presents to ED secondary to persistent diarrhea, hematochezia and lightheadedness since discharge on 03/25. Hospitalized 03/22-03/25 secondary to hemorrhagic shock in setting of lower GI bleed due to Coumadin coagulopathy and diarrheal illness secondary to COVID-19 Suspect persistent lower GI bleeding in setting of acute inflammatory/infectious colitis versus colitis from Covid resulting in hemorrhagic shock with component of hypovolemic shock in setting of profuse diarrhea and poor intake. --CT ABD:03/25:IMPRESSION: Wall thickening and vascular prominence of the transverse colon and hepatic flexure may reflect infectious/inflammatory colitis. Otherwise no acute abnormalities. -Required pressors briefly for persistent hypotension despite fluid resuscitation. -S/P Sigmoidoscopy revealed mild diffuse colitis without active bleeding. Biopsies were taken and pathology showed mild chronic colitis with moderate activity (active inflammation) - S/P 2 units PRBCs -Monitor H&H -Appreciate GI Input -Continue budesonide IVF discontinued as patient in hypervolemic state Monitor I/O Replace electrolytes as needed Needs follow up with GI upon discharge Added daily hold Lomotil, Imodium as recommended by GI Consider adding Questran once daily if continues to have diarrhea (6) Elevated troponin: Plan: Likely due to demand ischemia from hypovolemic shock. Trended down Denies chest Pain (7) Anemia due to GI blood loss: Plan: On admission H&H 8.8 and 26.5 S/P 2 PRBC Hb:8.2 today Monitor CBC Transfuse PRBCs as needed (8) Hypokalemia: (9) Hypomagnesemia: Plan: Electrolyte abnormalities [hypokalemia, hypophosphatemia, hypomagnesemia hypocalcemia] Due to GI losses Replace as needed (10) COVID: Plan: First initial Covid test on 03/22, positive Symptoms started on 02/25 No acute disease on chest x-ray on admission. Saturating well on Room Air (11) Atrial flutter: Plan: Rate and rhythm controlled on sotalol Warfarin has been on hold in setting of lower GI bleed since last admission (12) CAD (coronary artery disease): Plan: H/O stent Previously was on lisinopril but discontinued secondary to hypotension Continue atorvastatin Also on sotalol (13) T2DM (type 2 diabetes mellitus): Plan: Last A1c 6.9 on 03/23, well controlled Hold Metformin Lantus/NovoLog per protocol (14) HTN (hypertension): Plan: H/O hypertension On metoprolol as outpatient Prior to most recent admission was also on lisinopril 10 mg daily, furosemide 40 mg daily and potassium chloride Lisinopril, furosemide and KCl were discontinued in setting of hypotension in the last admission Avoid any antihypertensives for now Consider to resume diuretics if BP tolerates Monitor BP (15) Hypoalbuminemia: Plan: Albumin 1.4 (16) Prolonged QT interval: Plan: On admission QTC 527 MS Avoid QTC prolonging meds (17) DVT prophylaxis: Plan: SCD/teds Re: GI Bleeding Encourage activity LUE Doppler show superficial venous thrombosis Code Status FULL CODE Disposition PT/OT prior to discharge Admission and Anticipated Discharge Date Admission Date: March 29, 2021 Subjective Patient is seen and examined at bedside Persistent diarrhea with hematochezia intermittently Hb 8.2 today Discussed with gastroenterology today Denies any chest pain, shortness of breath, dizziness, nausea, vomiting, abdominal pain Chronic leg edema Offers no other complaints Review of Systems Review of Systems: All systems reviewed & are unremarkable except as noted in Subjective Physical Exam Physical Exam: Physical Exam: Vitals signs as noted above General Appearance:Morbidly Obese, no apparent distress Head: normocephalic, Atraumatic Eyes: normal inspection, EOMI Neck: supple, Trachea midline Respiratory/Chest: Normal breath sounds, CTA Cardiovascular: S1, S2, No murmur Abdomen/GI:Soft, Non tender, Bowel sounds present Extremities/Musculoskeletal:normal inspection, 2+ B/L LE edema Neurologic/Psych:AAOX3, grossly no focal neurological deficits Skin: normal color, warm Results & Data Results & Data ([facility]) Vital Signs (Past 12 Hours) Vital Signs Temp Pulse Pulse Resp BP Pulse Ox 04/05/21 16:04 36.5 C 83 18 93/63 L 97 04/05/21 12:04 37.2 C 87 18 96/65 L 98 04/05/21 08:00 36.5 C 83 83 18 98/65 L 97 Laboratory Results Short CBC 04/04/21 04/05/21 04/05/21 Range/Units 22:40 00:40 06:46 WBC 8.50 (4.8-10.8) K/uL Hgb 8.3 L 8.7 L 8.0 L (14.0-18.0) g/dL Hct 25.1 L 25.9 L 24.5 L (42-52) % Plt Count 256 (130-400) K/uL 04/05/21 Range/Units 14:30 WBC (4.8-10.8) K/uL Hgb 8.2 L (14.0-18.0) g/dL Hct 24.9 L (42-52) % Plt Count (130-400) K/uL BMP 04/05/21 06:46 Sodium 140 Potassium 4.1 Chloride 111 H Carbon Dioxide 25 BUN 4 L Creatinine 0.52 L Glucose 88 Calcium 7.2 L (1) HTN (hypertension) Hypertension type: essential hypertension Qualified Code(s): I10 - Essential (primary) hypertension
[2021-04-05] MEDS: ATORVASTATIN 40 MG TAB PO SCH (20:37)
[2021-04-05] MEDS: LOPERAMIDE HCL 2 MG CAP PO SCH (20:38)
[2021-04-05 21:53] LABS: Hematocrit (blood only) 23.9 % (42-52); Hemoglobin 7.8 g/dL (14.0-18.0)
[2021-04-06 06:42] LABS: BUN Creatinine Ratio 6.1 (10-20); Creatinine Clr Calc Pharmacy 223.3 ml/min; Est GFR (African American) 136.5 ml/min; Est GFR (Non-African American) 117.8 ml/min; Magnesium 1.6 mg/dl (1.8-2.4); Potassium 3.8 mmol/L (3.5-5.1)
[2021-04-06 07:01] LABS: Phosphorus 2.8 mg/dl (2.5-4.9)
[2021-04-06] MEDS: INSULIN ASPART 100 UNITS/ML 3 ML PEN SC SCH ×4 (08:24→20:09)
[2021-04-06] MEDS: BUDESONIDE EC 3 MG CAP PO SCH (08:27)
[2021-04-06] MEDS: SOTALOL HCL 80 MG TAB PO SCH ×2 (08:28→20:06)
[2021-04-06] MEDS: LOPERAMIDE HCL 2 MG CAP PO SCH ×2 (08:30→20:07)
[2021-04-06] MEDS: DIPHENOXYLATE/ATROPINE 2.5/0.025MG TAB PO SCH ×2 (08:32→20:06)
[2021-04-06] MEDS: THIAMINE HCL 100 MG TAB PO SCH ×2 (08:32→20:06)
[2021-04-06] MEDS: MULTIVITAMIN TAB PO SCH (08:33)
[2021-04-06] MEDS: ZINC SULFATE 220 MG CAPSULE PO SCH (08:33)
[2021-04-06] MEDS: CHOLECALCIFEROL 1,000 UNITS 25 MCG TAB PO SCH (08:34)
[2021-04-06] MEDS: POT PHOSPHATE MONOBASIC W/ SOD TAB PO SCH ×4 (08:36→20:06)
[2021-04-06] MEDS: INSULIN GLARGINE SOLOSTAR 100 UNITS/ML 3 ML PEN SC SCH ×2 (08:37→20:07)
[2021-04-06] MEDS ORDERED: SODIUM CHLORIDE 0.9% 250 ML IV PRN (08:57)
[2021-04-06 09:31] LABS: Hematocrit (blood only) 26.3 % (42-52); Hemoglobin 8.6 g/dL (14.0-18.0)
[2021-04-06] MEDS ORDERED: MAGNESIUM SULFATE / D5W 1 GM/100 ML BAG IV ONE (13:00)
--- NOTE | 2021-04-06 17:06 | Hospitalist Progress Note ---
Date of Service April 06, 2021 Assessment & Plan (1) Shock: (2) Hypotension: (3) Colitis: (4) Acute GI bleeding: (5) Lactic acidosis: Plan: Patient is a 61 yr male with H/O Atrial flutter on sotalol therapy and previously anticoagulated with warfarin until recent GI bleeding, CAD, T2DM, HTN, HLD, microalbuminuric diabetic nephropathy, secondary polycythemia who presents to ED secondary to persistent diarrhea, hematochezia and lightheadedness since discharge on 03/25. Hospitalized 03/22-03/25 secondary to hemorrhagic shock in setting of lower GI bleed due to Coumadin coagulopathy and diarrheal illness secondary to COVID-19 Suspect persistent lower GI bleeding in setting of acute inflammatory/infectious colitis versus colitis from Covid resulting in hemorrhagic shock with component of hypovolemic shock in setting of profuse diarrhea and poor intake. --CT ABD:03/25:IMPRESSION: Wall thickening and vascular prominence of the transverse colon and hepatic flexure may reflect infectious/inflammatory colitis. Otherwise no acute abnormalities. -Required pressors briefly for persistent hypotension despite fluid resuscitation. -S/P Sigmoidoscopy revealed mild diffuse colitis without active bleeding. Biopsies were taken and pathology showed mild chronic colitis with moderate activity (active inflammation) - S/P 3 units PRBCs -Monitor H&H -Appreciate GI Input -Continue budesonide IVF discontinued as patient in hypervolemic state Monitor I/O Replace electrolytes as needed Needs follow up with GI upon discharge After adding Questran daily if needed Continue Lomotil, Imodium Diarrhea improving (6) Elevated troponin: Plan: Likely due to demand ischemia from hypovolemic shock. Trended down Denies chest Pain (7) Anemia due to GI blood loss: Plan: On admission H&H 8.8 and 26.5 S/P 3 PRBC Hb:8.6 Monitor CBC Transfuse PRBCs as needed (8) Hypokalemia: (9) Hypomagnesemia: Plan: Electrolyte abnormalities [hypokalemia, hypophosphatemia, hypomagnesemia hypocalcemia] Due to GI losses Replace as needed (10) COVID: Plan: First initial Covid test on 03/22, positive Symptoms started on 02/25 No acute disease on chest x-ray on admission. Saturating well on Room Air (11) Atrial flutter: Plan: Rate and rhythm controlled on sotalol Warfarin has been on hold in setting of lower GI bleed since last admission (12) CAD (coronary artery disease): Plan: H/O stent Previously was on lisinopril but discontinued secondary to hypotension Continue atorvastatin Also on sotalol (13) T2DM (type 2 diabetes mellitus): Plan: Last A1c 6.9 on 03/23, well controlled Hold Metformin Lantus/NovoLog per protocol (14) HTN (hypertension): Plan: H/O hypertension On metoprolol as outpatient Prior to most recent admission was also on lisinopril 10 mg daily, furosemide 40 mg daily and potassium chloride Lisinopril, furosemide and KCl were discontinued in setting of hypotension in the last admission Avoid any antihypertensives for now Consider to resume diuretics if BP tolerates Monitor BP (15) Hypoalbuminemia: Plan: Albumin 1.4 (16) Prolonged QT interval: Plan: On admission QTC 527 MS Avoid QTC prolonging meds (17) DVT prophylaxis: Plan: SCD/teds Re: GI Bleeding Encourage activity LUE Doppler show superficial venous thrombosis Code Status FULL CODE Disposition PT/OT prior to discharge Admission and Anticipated Discharge Date Admission Date: March 29, 2021 Subjective Patient is seen and examined at bedside Diarrhea much improved today Denies any blood in stools this morning Hemoglobin dropped to 7.8 yesterday No new complaints Denies any chest pain, shortness of breath, dizziness, nausea, vomiting, abdominal pain Chronic leg edema Review of Systems Review of Systems: All systems reviewed & are unremarkable except as noted in Subjective Physical Exam Physical Exam: Physical Exam: Vitals signs as noted above General Appearance:Morbidly Obese, no apparent distress Head: normocephalic, Atraumatic Eyes: normal inspection, EOMI Neck: supple, Trachea midline Respiratory/Chest: Normal breath sounds, CTA Cardiovascular: S1, S2, No murmur Abdomen/GI:Soft, Non tender, Bowel sounds present Extremities/Musculoskeletal:normal inspection, 2+ B/L LE edema Neurologic/Psych:AAOX3, grossly no focal neurological deficits Skin: normal color, warm Results & Data Results & Data ([facility]) Vital Signs (Past 12 Hours) Vital Signs Temp Pulse Pulse Resp BP BP Pulse Ox 04/06/21 16:39 88 04/06/21 16:00 36.7 C 108 H 18 102/68 95 04/06/21 15:00 36.9 C 86 18 100/66 97 11/05/21 14:00 37.1 C 89 18 96/64 L 97 04/06/21 13:00 36.4 C L 87 18 93/62 L 98 04/06/21 12:30 36.5 C 85 18 82/57 L 98 04/06/21 12:15 36.9 C 83 18 91/62 L 95 04/06/21 12:00 36.8 C 83 16 100/63 98 04/06/21 11:56 36.8 C 81 16 100/63 98 04/06/21 08:00 78 04/06/21 07:47 36.4 C L 91 H 18 99/67 L 97 Laboratory Results Short CBC 04/05/21 04/06/21 Range/Units 21:45 09:14 Hgb 7.8 L 8.6 L (14.0-18.0) g/dL Hct 23.9 L 26.3 L (42-52) % BMP 04/06/21 05:40 Sodium 138 Potassium 3.8 Chloride 111 H Carbon Dioxide 23 BUN 3 L Creatinine 0.50 L Glucose 97 Calcium 7.0 L (1) HTN (hypertension) Hypertension type: essential hypertension Qualified Code(s): I10 - Essential (primary) hypertension
[2021-04-06] MEDS: ATORVASTATIN 40 MG TAB PO SCH (20:06)
[2021-04-06 21:49] LABS: Hematocrit (blood only) 30.9 % (42-52)
[2021-04-07 06:42] LABS: Hematocrit (blood only) 27.6 % (42-52); Hemoglobin 9.2 g/dL (14.0-18.0); Mean Corpuscular Hemoglobin 30.7 pg (25-34); Mean Corpuscular Hgb Conc 33.3 g/dL (32-36); Mean Platelet Volume 10.2 fL (7.4-10.4); Platelet Count 287 K/uL (130-400); RDW Coefficient of Variation 16.5 % (11.5-14.5); RDW Standard Deviation 55.1 fL (36.4-46.3); White Blood Count 9.37 K/uL (4.8-10.8)
[2021-04-07 07:27] LABS: Magnesium 1.8 mg/dl (1.8-2.4); Phosphorus 3.5 mg/dl (2.5-4.9)
[2021-04-07] MEDS: INSULIN ASPART 100 UNITS/ML 3 ML PEN SC SCH ×4 (08:02→21:02)
[2021-04-07] MEDS: BUDESONIDE EC 3 MG CAP PO SCH (08:24)
[2021-04-07] MEDS: CHOLECALCIFEROL 1,000 UNITS 25 MCG TAB PO SCH (08:25)
[2021-04-07] MEDS: DIPHENOXYLATE/ATROPINE 2.5/0.025MG TAB PO SCH ×2 (08:25→20:58)
[2021-04-07] MEDS: MULTIVITAMIN TAB PO SCH (08:25)
[2021-04-07] MEDS: LOPERAMIDE HCL 2 MG CAP PO SCH ×2 (08:25→20:58)
[2021-04-07] MEDS: ZINC SULFATE 220 MG CAPSULE PO SCH (08:26)
[2021-04-07] MEDS: THIAMINE HCL 100 MG TAB PO SCH (08:26)
[2021-04-07] MEDS: SOTALOL HCL 80 MG TAB PO SCH ×2 (08:26→20:58)
[2021-04-07] MEDS: POT PHOSPHATE MONOBASIC W/ SOD TAB PO SCH ×4 (08:27→20:58)
[2021-04-07] MEDS: INSULIN GLARGINE SOLOSTAR 100 UNITS/ML 3 ML PEN SC SCH ×2 (08:28→20:59)
[2021-04-07] MEDS: FUROSEMIDE 20 MG TAB PO SCH (13:25)
--- NOTE | 2021-04-07 17:04 | Hospitalist Progress Note ---
Date of Service April 07, 2021 Assessment & Plan (1) Shock: (2) Hypotension: (3) Colitis: (4) Acute GI bleeding: (5) Lactic acidosis: Plan: Patient is a 61 yr male with H/O Atrial flutter on sotalol therapy and previously anticoagulated with warfarin until recent GI bleeding, CAD, T2DM, HTN, HLD, microalbuminuric diabetic nephropathy, secondary polycythemia who presents to ED secondary to persistent diarrhea, hematochezia and lightheadedness since discharge on 03/25. Hospitalized 03/22-03/25 secondary to hemorrhagic shock in setting of lower GI bleed due to Coumadin coagulopathy and diarrheal illness secondary to COVID-19 Suspect persistent lower GI bleeding in setting of acute inflammatory/infectious colitis versus colitis from Covid resulting in hemorrhagic shock with component of hypovolemic shock in setting of profuse diarrhea and poor intake. --CT ABD:03/25:IMPRESSION: Wall thickening and vascular prominence of the transverse colon and hepatic flexure may reflect infectious/inflammatory colitis. Otherwise no acute abnormalities. -Required pressors briefly for persistent hypotension despite fluid resuscitation. -S/P Sigmoidoscopy revealed mild diffuse colitis without active bleeding. Biopsies were taken and pathology showed mild chronic colitis with moderate activity (active inflammation) - S/P 3 units PRBCs -Monitor H&H -Appreciate GI Input -Continue budesonide IVF discontinued as patient in hypervolemic state Monitor I/O Replace electrolytes as needed Needs follow up with GI upon discharge After adding Questran daily if needed Continue Lomotil, Imodium Diarrhea continues to improve Hb stable (6) Elevated troponin: Plan: Likely due to demand ischemia from hypovolemic shock. Trended down Denies chest Pain (7) Anemia due to GI blood loss: Plan: On admission H&H 8.8 and 26.5 S/P 3 PRBC Hb:9.2 Monitor CBC Transfuse PRBCs as needed (8) Hypokalemia: (9) Hypomagnesemia: Plan: Electrolyte abnormalities [hypokalemia, hypophosphatemia, hypomagnesemia hypocalcemia] Due to GI losses Replace as needed (10) COVID: Plan: First initial Covid test on 03/22, positive Symptoms started on 02/25 No acute disease on chest x-ray on admission. Saturating well on Room Air (11) Atrial flutter: Plan: Rate and rhythm controlled on sotalol Warfarin has been on hold in setting of lower GI bleed since last admission (12) CAD (coronary artery disease): Plan: H/O stent Previously was on lisinopril but discontinued secondary to hypotension Continue atorvastatin Also on sotalol (13) T2DM (type 2 diabetes mellitus): Plan: Last A1c 6.9 on 03/23, well controlled Hold Metformin Lantus/NovoLog per protocol (14) HTN (hypertension): Plan: H/O hypertension On metoprolol as outpatient Prior to most recent admission was also on lisinopril 10 mg daily, furosemide 40 mg daily and potassium chloride Lisinopril, furosemide and KCl were discontinued in setting of hypotension in the last admission Avoid any antihypertensives for now Consider to resume diuretics if BP tolerates Monitor BP (15) Hypoalbuminemia: Plan: Hypoalbuminemia Chronic lower extremity edema Lasix as tolerated Dietitian consulted (16) Prolonged QT interval: Plan: On admission QTC 527 MS Avoid QTC prolonging meds (17) DVT prophylaxis: Plan: SCD/teds Re: GI Bleeding Encourage activity LUE Doppler show superficial venous thrombosis Code Status FULL CODE Disposition PT/OT prior to discharge Admission and Anticipated Discharge Date Admission Date: March 29, 2021 Subjective Patient is seen and examined at bedside Patient had 3 bowel movements overnight with minimal blood No bowel movement this morning Has significant lower extremity edema Hemoglobin 9.2 Today Denies any chest pain, shortness of breath, dizziness, nausea, vomiting, abdominal pain Review of Systems Review of Systems: All systems reviewed & are unremarkable except as noted in Subjective Physical Exam Physical Exam: Physical Exam: Vitals signs as noted above General Appearance:Morbidly Obese, no apparent distress Head: normocephalic, Atraumatic Eyes: normal inspection, EOMI Neck: supple, Trachea midline Respiratory/Chest: Normal breath sounds, CTA Cardiovascular: S1, S2, No murmur Abdomen/GI:Soft, Non tender, Bowel sounds present Extremities/Musculoskeletal:normal inspection, 2+ B/L LE edema Neurologic/Psych:AAOX3, grossly no focal neurological deficits Skin: normal color, warm Results & Data Results & Data ([facility]) Vital Signs (Past 12 Hours) Vital Signs Temp Pulse Pulse Pulse Pulse Resp BP 04/07/21 16:30 36.8 C 74 18 95/69 L 04/07/21 11:36 36.5 C 84 19 04/07/21 07:34 78 04/07/21 06:18 36.6 C 87 16 BP Pulse Ox 04/07/21 16:30 98 04/07/21 11:36 101/66 98 04/07/21 07:34 04/07/21 06:18 112/75 97 Laboratory Results Short CBC 04/06/21 04/07/21 Range/Units 20:57 06:16 WBC 9.37 (4.8-10.8) K/uL Hgb 10.0 L 9.2 L (14.0-18.0) g/dL Hct 30.9 L 27.6 L (42-52) % Plt Count 287 (130-400) K/uL (1) HTN (hypertension) Hypertension type: essential hypertension Qualified Code(s): I10 - Essential (primary) hypertension
[2021-04-07] MEDS: ATORVASTATIN 40 MG TAB PO SCH (20:58)
[2021-04-08 06:06] LABS: Hematocrit (blood only) 26.9 % (42-52); Hemoglobin 8.8 g/dL (14.0-18.0)
[2021-04-08 06:25] LABS: BUN Creatinine Ratio 8.5 (10-20); Creatinine Clr Calc Pharmacy 221.8 ml/min; Est GFR (African American) 136.5 ml/min; Est GFR (Non-African American) 117.8 ml/min; Magnesium 1.6 mg/dl (1.8-2.4); Potassium 3.6 mmol/L (3.5-5.1)
[2021-04-08] MEDS: INSULIN ASPART 100 UNITS/ML 3 ML PEN SC SCH ×4 (07:47→20:45)
[2021-04-08] MEDS: BUDESONIDE EC 3 MG CAP PO SCH (08:07)
[2021-04-08] MEDS: CHOLECALCIFEROL 1,000 UNITS 25 MCG TAB PO SCH (08:08)
[2021-04-08] MEDS: DIPHENOXYLATE/ATROPINE 2.5/0.025MG TAB PO SCH ×2 (08:09→20:43)
[2021-04-08] MEDS: FUROSEMIDE 20 MG TAB PO SCH (08:10)
[2021-04-08] MEDS: MULTIVITAMIN TAB PO SCH (08:12)
[2021-04-08] MEDS: POT PHOSPHATE MONOBASIC W/ SOD TAB PO SCH ×2 (08:13→20:40)
[2021-04-08] MEDS: ZINC SULFATE 220 MG CAPSULE PO SCH (08:14)
[2021-04-08] MEDS: SOTALOL HCL 80 MG TAB PO SCH ×2 (08:14→20:40)
[2021-04-08] MEDS: LOPERAMIDE HCL 2 MG CAP PO SCH ×2 (08:17→20:42)
[2021-04-08] MEDS ORDERED: POTASSIUM CHLORIDE CRTAB 20 MEQ TABCR PO ONE (09:02)
[2021-04-08] MEDS: INSULIN GLARGINE SOLOSTAR 100 UNITS/ML 3 ML PEN SC SCH ×2 (09:23→20:44)
[2021-04-08] MEDS ORDERED: MAGNESIUM SULFATE / D5W 1 GM/100 ML BAG IV ONE (09:30)
[2021-04-08] MEDS: MAGNESIUM CHLORIDE 64MG DELAYED REL TAB PO SCH ×2 (10:05→20:43)
--- NOTE | 2021-04-08 16:57 | Hospitalist Progress Note ---
Date of Service April 08, 2021 Assessment & Plan (1) Shock: (2) Hypotension: (3) Colitis: (4) Acute GI bleeding: (5) Lactic acidosis: Plan: Patient is a 61 yr male with H/O Atrial flutter on sotalol therapy and previously anticoagulated with warfarin until recent GI bleeding, CAD, T2DM, HTN, HLD, microalbuminuric diabetic nephropathy, secondary polycythemia who presents to ED secondary to persistent diarrhea, hematochezia and lightheadedness since discharge on 03/25. Hospitalized 03/22-03/25 secondary to hemorrhagic shock in setting of lower GI bleed due to Coumadin coagulopathy and diarrheal illness secondary to COVID-19 Suspect persistent lower GI bleeding in setting of acute inflammatory/infectious colitis versus colitis from Covid resulting in hemorrhagic shock with component of hypovolemic shock in setting of profuse diarrhea and poor intake. --CT ABD:03/25:IMPRESSION: Wall thickening and vascular prominence of the transverse colon and hepatic flexure may reflect infectious/inflammatory colitis. Otherwise no acute abnormalities. -Required pressors briefly for persistent hypotension despite fluid resuscitation. -S/P Sigmoidoscopy revealed mild diffuse colitis without active bleeding. Biopsies were taken and pathology showed mild chronic colitis with moderate activity (active inflammation) - S/P 3 units PRBCs -Monitor H&H -Appreciate GI Input -Continue budesonide IVF discontinued as patient in hypervolemic state Monitor I/O Replace electrolytes as needed Needs follow up with GI upon discharge Consider adding Questran daily if needed Continue Lomotil, Imodium Diarrhea improving Likely discharge in 24 to 48 hours if remains stable (6) Elevated troponin: Plan: Likely due to demand ischemia from hypovolemic shock. Trended down Denies chest Pain (7) Anemia due to GI blood loss: Plan: On admission H&H 8.8 and 26.5 S/P 3 PRBC Hb:8.8 Monitor CBC Transfuse PRBCs as needed (8) Hypokalemia: (9) Hypomagnesemia: Plan: Electrolyte abnormalities [hypokalemia, hypophosphatemia, hypomagnesemia h ypocalcemia] Due to GI losses Replace as needed (10) COVID: Plan: First initial Covid test on 03/22, positive Symptoms started on 02/25 No acute disease on chest x-ray on admission. Saturating well on Room Air (11) Atrial flutter: Plan: Rate and rhythm controlled on sotalol Warfarin has been on hold in setting of lower GI bleed since last admission (12) CAD (coronary artery disease): Plan: H/O stent Previously was on lisinopril but discontinued secondary to hypotension Continue atorvastatin Also on sotalol (13) T2DM (type 2 diabetes mellitus): Plan: Last A1c 6.9 on 03/23, well controlled Hold Metformin Lantus/NovoLog per protocol (14) HTN (hypertension): Plan: H/O hypertension On metoprolol as outpatient Prior to most recent admission was also on lisinopril 10 mg daily, furosemide 40 mg daily and potassium chloride Lisinopril, furosemide and KCl were discontinued in setting of hypotension in the last admission Avoid any antihypertensives for now Monitor BP Currently on low-dose furosemide for chronic leg edema (15) Hypoalbuminemia: Plan: Hypoalbuminemia Chronic lower extremity edema Lasix as tolerated Dietitian consulted (16) Prolonged QT interval: Plan: On admission QTC 527 MS Avoid QTC prolonging meds (17) DVT prophylaxis: Plan: SCD/teds Re: GI Bleeding Encourage activity LUE Doppler show superficial venous thrombosis Code Status FULL CODE Disposition Likely home with home health Admission and Anticipated Discharge Date Admission Date: March 29, 2021 Subjective Patient is seen and examined at bedside Diarrhea slowly improving No new complaints Hemoglobin 8.8 Denies any chest pain, shortness of breath, dizziness, nausea, vomiting, abdominal pain Physical Exam Physical Exam: Physical Exam: Vitals signs as noted above General Appearance:Morbidly Obese, no apparent distress Head: normocephalic, Atraumatic Eyes: normal inspection, EOMI Neck: supple, Trachea midline Respiratory/Chest: Normal breath sounds, CTA Cardiovascular: S1, S2, No murmur Abdomen/GI:Soft, Non tender, Bowel sounds present Extremities/Musculoskeletal:normal inspection, 2+ B/L LE edema Neurologic/Psych:AAOX3, grossly no focal neurological deficits Skin: normal color, warm Results & Data Results & Data ([facility]) Vital Signs (Past 12 Hours) Vital Signs Temp Pulse Pulse Pulse Pulse Resp BP 04/08/21 16:12 36.7 C 86 20 102/65 04/08/21 14:59 83 04/08/21 11:30 36.7 C 83 16 154/91 H 04/08/21 08:15 36.8 C 85 19 96/62 L 04/08/21 08:00 84 Pulse Ox 04/08/21 16:12 96 04/08/21 14:59 04/08/21 11:30 95 04/08/21 08:15 96 04/08/21 08:00 (1) HTN (hypertension) Hypertension type: essential hypertension Qualified Code(s): I10 - Essential (primary) hypertension
[2021-04-08] MEDS: ATORVASTATIN 40 MG TAB PO SCH (20:43)
[2021-04-09 05:55] LABS: Hematocrit (blood only) 27.2 % (42-52); Hemoglobin 8.8 g/dL (14.0-18.0)
[2021-04-09 06:36] LABS: BUN Creatinine Ratio 5.4 (10-20); Calcium 7.4 mg/dl (8.5-10.1); Creatinine Clr Calc Pharmacy 185.9 ml/min; Est GFR (African American) 126.7 ml/min; Est GFR (Non-African American) 109.3 ml/min; Magnesium 1.7 mg/dl (1.8-2.4)
[2021-04-09] MEDS: INSULIN ASPART 100 UNITS/ML 3 ML PEN SC SCH ×2 (08:53→12:15)
[2021-04-09] MEDS: INSULIN GLARGINE SOLOSTAR 100 UNITS/ML 3 ML PEN SC SCH (08:56)
[2021-04-09] MEDS: ZINC SULFATE 220 MG CAPSULE PO SCH (09:00)
[2021-04-09] MEDS: FUROSEMIDE 20 MG TAB PO SCH (09:00)
[2021-04-09] MEDS: MULTIVITAMIN TAB PO SCH (09:00)
[2021-04-09] MEDS: SOTALOL HCL 80 MG TAB PO SCH (09:00)
[2021-04-09] MEDS: LOPERAMIDE HCL 2 MG CAP PO SCH (09:00)
[2021-04-09] MEDS: BUDESONIDE EC 3 MG CAP PO SCH (09:00)
[2021-04-09] MEDS: DIPHENOXYLATE/ATROPINE 2.5/0.025MG TAB PO SCH (09:00)
[2021-04-09] MEDS: CHOLECALCIFEROL 1,000 UNITS 25 MCG TAB PO SCH (09:00)
[2021-04-09] MEDS: MAGNESIUM CHLORIDE 64MG DELAYED REL TAB PO SCH (09:01)
[2021-04-09] MEDS: POT PHOSPHATE MONOBASIC W/ SOD TAB PO SCH (09:01)
--- NOTE | 2021-04-09 13:13 | Hospitalist Progress Note ---
Date of Service April 09, 2021 Assessment & Plan (1) Shock: (2) Hypotension: (3) Colitis: (4) Acute GI bleeding: (5) Lactic acidosis: Plan: Patient is a 61 yr male with H/O Atrial flutter on sotalol therapy and previously anticoagulated with warfarin until recent GI bleeding, CAD, T2DM, HTN, HLD, microalbuminuric diabetic nephropathy, secondary polycythemia who presents to ED secondary to persistent diarrhea, hematochezia and lightheadedness since discharge on 03/25. Hospitalized 03/22-03/25 secondary to hemorrhagic shock in setting of lower GI bleed due to Coumadin coagulopathy and diarrheal illness secondary to COVID-19 Suspect persistent lower GI bleeding in setting of acute inflammatory/infectious colitis versus colitis from Covid resulting in hemorrhagic shock with component of hypovolemic shock in setting of profuse diarrhea and poor intake. --CT ABD:03/25:IMPRESSION: Wall thickening and vascular prominence of the transverse colon and hepatic flexure may reflect infectious/inflammatory colitis. Otherwise no acute abnormalities. -Required pressors briefly for persistent hypotension despite fluid resuscitation. -S/P Sigmoidoscopy revealed mild diffuse colitis without active bleeding. Biopsies were taken and pathology showed mild chronic colitis with moderate activity (active inflammation) - S/P 3 units PRBCs -Monitor H&H -Appreciate GI Input -Continue budesonide IVF discontinued as patient in hypervolemic state Monitor I/O Replace electrolytes as needed Continue Lomotil, Imodium as needed Diarrhea improved Plan to discharge home today Advised to follow-up with GI upon discharge (6) Elevated troponin: Plan: Likely due to demand ischemia from hypovolemic shock. Trended down Denies chest Pain (7) Anemia due to GI blood loss: Plan: On admission H&H 8.8 and 26.5 S/P 3 PRBC Hb:8.8 Monitor CBC Transfuse PRBCs as needed (8) Hypokalemia: (9) Hypomagnesemia: Plan: Electrolyte abnormalities [hypokalemia, hypophosphatemia, hypomagnesemia hypocalcemia] Due to GI losses Replace as needed (10) COVID: Plan: First initial Covid test on 03/22, positive Symptoms started on 02/25 No acute disease on chest x-ray on admission. Saturating well on Room Air (11) Atrial flutter: Plan: Rate and rhythm controlled on sotalol Warfarin has been on hold in setting of lower GI bleed since last admission (12) CAD (coronary artery disease): Plan: H/O stent Previously was on lisinopril but discontinued secondary to hypotension Continue atorvastatin Also on sotalol (13) T2DM (type 2 diabetes mellitus): Plan: Last A1c 6.9 on 03/23, well controlled Hold Metformin Lantus/NovoLog per protocol (14) HTN (hypertension): Plan: H/O hypertension On metoprolol as outpatient Prior to most recent admission was also on lisinopril 10 mg daily, furosemide 40 mg daily and potassium chloride Lisinopril, furosemide and KCl were discontinued in setting of hypotension in the last admission Avoid any antihypertensives for now Monitor BP Currently on low-dose furosemide for chronic leg edema (15) Hypoalbuminemia: Plan: Hypoalbuminemia Chronic lower extremity edema Lasix as tolerated Dietitian consulted (16) Prolonged QT interval: Plan: On admission QTC 527 MS Avoid QTC prolonging meds (17) DVT prophylaxis: Plan: SCD/teds Re: GI Bleeding Encourage activity LUE Doppler show superficial venous thrombosis Code Status FULL CODE Disposition home with home health Admission and Anticipated Discharge Date Admission Date: March 29, 2021 Subjective Patient is seen and examined at bedside States having semiformed stools today Denies any bleeding issues Leg edema slowly improving Also denies any chest pain, shortness of breath, dizziness, nausea, vomiting, abdominal pain Offers no other complaints Review of Systems Review of Systems: All systems reviewed & are unremarkable except as noted in Subjective Physical Exam Physical Exam: Physical Exam: Vitals signs as noted above General Appearance:Morbidly Obese, no apparent distress Head: normocephalic, Atraumatic Eyes: normal inspection, EOMI Neck: supple, Trachea midline Respiratory/Chest: Normal breath sounds, CTA Cardiovascular: S1, S2, No murmur Abdomen/GI:Soft, Non tender, Bowel sounds present Extremities/Musculoskeletal:normal inspection, 2+ B/L LE edema Neurologic/Psych:AAOX3, grossly no focal neurological deficits Skin: normal color, warm Results & Data Results & Data ([facility]) Vital Signs (Past 12 Hours) Vital Signs Temp Pulse Pulse Pulse Resp BP BP 04/09/21 11:09 36.5 C 82 20 89/57 L 04/09/21 09:07 80 04/09/21 08:58 36.4 C L 87 18 104/64 04/09/21 04:45 36.5 C 86 16 89/53 L Pulse Ox 04/09/21 11:09 96 04/09/21 09:07 04/09/21 08:58 96 04/09/21 04:45 94 Laboratory Results Short CBC 04/09/21 Range/Units 05:35 Hgb 8.8 L (14.0-18.0) g/dL Hct 27.2 L (42-52) % BMP 04/09/21 05:35 Sodium 141 Potassium 4.0 Chloride 109 H Carbon Dioxide 27 BUN 3 L Creatinine 0.60 Glucose 92 Calcium 7.4 L (1) HTN (hypertension) Hypertension type: essential hypertension Qualified Code(s): I10 - Essential (primary) hypertension
--- NOTE | 2021-04-09 13:38 | Discharge Summary ---
Date of Service April 09, 2021 Admission HPI Per Admitting Provider This is a 61-year-old male who has a significant past medical history of atrial flutter on sotalol therapy and previously anticoagulated with warfarin until recent GI bleeding, CAD, T2DM, HTN, HLD, microalbuminuric diabetic nephropathy, secondary polycythemia who presents to ED secondary to persistent diarrhea, hematochezia and lightheadedness since discharge on 03/25. Of significance patient was recently hospitalized 03/22-03/25. He was hospitalized secondary to hypotension in setting of hemorrhagic shock secondary to lower GI bleeding due to Coumadin coagulopathy. Initially had supratherapeutic INR of 7. This was reversed with Kcentra and vitamin K. INR normalized. He received 1 unit of PRBCs increasing hemoglobin from 8.7-9.3. His hemoglobin stayed stable throughout admission. He had persistent diarrhea that slowly improved throughout discharge. On day of discharge he did have a CT abdomen pelvis which was concerning for infectious/inflammatory colitis of transverse colon. It was felt it may be secondary to Covid diarrhea due to recent Covid diagnosis. GI was on board and a colonoscopy was recommended as outpatient. He remained off warfarin during hospitalization and was instructed to remain off warfarin until bleeding stopped for 3 days. Since being discharged on 03/25 he returns to having 25-30 liquid bloody bowel movements daily. He states blood is not associated with every bowel movement but frequently he notices bright red blood intermixed within the stool and on the toilet paper. He does not have painful bowel movements. He does complain of crampy abdominal pain that is intermittent, comes and goes, nothing makes better or worse, seems to be associated with bowel movements. In regards to his COVID-19 diagnoses he states his tested positive on 02/23. He then developed symptoms on 02/25. Symptoms were otherwise mild except for diarrhea. He presents today due to persistent diarrhea and lightheadedness. is at bedside and is concerned as he is presenting similarly to his recent admission. He has significant dizziness with position change, sitting up and standing. He did fall onto his bed today but was without injury. He also complains of increasing swelling to his bilateral lower extremities now extending to proximal thighs. states he did not have this prior to developing diarrhea. He denies any fever, chills, sweats, chest pain, shortness of breath, cough, URI symptoms, nausea, vomiting, dysuria, increased urgency or frequency with urination or melena. He does have history of hemorrhoids but feels this bleeding is different.His appetite is otherwise been decreased and his does not feel he has been drinking adequately. In ED patient remained persistently hypotensive despite approximately 2 L of IV fluid. He did meet SIRS criteria secondary to leukocytosis and persistent hypotension. There was concern for sepsis versus hypovolemic shock or hemorrhagic shock. He did have mild elevated white count at 12.32k, H&H stable at 8.8 and 26.5, potassium 2.9, BUN 11, creatinine 1.32, lactate 2.5, mag 1.7, calcium 7.0, troponin 0.068, albumin 1.4. He continues to remain positive for SARS-CoV-2. Chest x-ray was without acute abnormality. Admission Exam Per Admitting Provider Physical Exam Physical Exam: Constitutional: WD/WN, pale, acutely ill-appearing male, vitals as above, NAD, sitting up in bed, pleasant, conversing easily Head: Normocephalic, Atraumatic Eyes: PERRL, conjunctivae normal, anicteric sclerae ENMT: external ear and nose normal, oropharynx normal Neck: trachea midline, no thyromegaly normal visual inspection Respiratory: normal respiratory effort, lungs clear to auscultation, no wheeze, rales, rhonchi. Normal insp/exp effort, no accessory muscle use Cardiovascular: RRR, no murmur, bilateral lower extremity +2 pitting edema, right greater than left, extending to right proximal thigh Vessels: no JVD or carotid bruit Chest: normal inspection of chest Abdomen: normal bowel sounds, soft, nontender, no hepatosplenomegaly Musculoskeletal: no cyanosis or clubbing, extremities motor strength 5/5 Skin: no rashes, warm and dry normal turgor Neurologic: PERRL, EOMI, accommodation nl, no face palsy, no dysarthria CN's II-XI intact bilaterally and moves all extremities Psychiatric: A+Ox3, euthymic affect Lymphatic: no cervical or axillary lymphadenopathy : deferred Principal Diagnosis Acute gastrointestinal bleeding Colitis Anemia due to blood loss Hypokalemia Hypomagnesemia Discharge Data Allergies Allergy/AdvReac Type Severity Reaction Status Date / Time gabapentin Allergy Mild Emotional Verified 10/28/21 17:28 changes (makes cry) Sulfa (Sulfonamide Allergy Mild Rash Verified 03/29/21 17:28 Antibiotics) cyclobenzaprine Allergy Unknown ON [facility] MED Verified 03/29/21 17:28 LIST Consultations 03/29/21 17:55 ED Decision to Admit Stat 03/29/21 19:13 Consult Stunt Performer Routine 03/29/21 23:27 Consult Gastroenterology Routine Procedures Performed Operation Date: 03/30/21 16:30 Actual Procedures p Flexible Sigmoidoscopy Biopsy - Danielle Valenzuela MD Ordered Studies 03/29/21 19:13 US venous doppler LE BI Urgent 04/02/21 18:11 US venous doppler UE LT Urgent Hospital Course (1) Shock: (2) Hypotension: (3) Colitis: (4) Acute GI bleeding: (5) Lactic acidosis: Patient is a 61 yr male with H/O Atrial flutter on sotalol therapy and previously anticoagulated with warfarin until recent GI bleeding, CAD, T2DM, HTN, HLD, microalbuminuric diabetic nephropathy, secondary polycythemia who presents to ED secondary to persistent diarrhea, hematochezia and lightheadedness since discharge on 03/25. Hospitalized 03/22-03/25 secondary to hemorrhagic shock in setting of lower GI bleed due to Coumadin coagulopathy and diarrheal illness secondary to COVID-19 Suspect persistent lower GI bleeding in setting of acute inflammatory/infectious colitis versus colitis from Covid resulting in hemorrhagic shock with component of hypovolemic shock in setting of profuse diarrhea and poor intake. --CT ABD:03/25:IMPRESSION: Wall thickening and vascular prominence of the transverse colon and hepatic flexure may reflect infectious/inflammatory colitis. Otherwise no acute abnormalities. -Required pressors briefly for persistent hypotension despite fluid resuscitation. -S/P Sigmoidoscopy revealed mild diffuse colitis without active bleeding. Biopsies were taken and pathology showed mild chronic colitis with moderate activity (active inflammation) - S/P 3 units PRBCs -Monitor H&H -Appreciate GI Input -Continue budesonide IVF discontinued as patient in hypervolemic state Monitor I/O Replace electrolytes as needed Continue Imodium as needed Lomotil discontinued Diarrhea improved Plan to discharge home today Advised to follow-up with GI upon discharge (6) Elevated troponin: Likely due to demand ischemia from hypovolemic shock. Trended down Denies chest Pain (7) Anemia due to GI blood loss: On admission H&H 8.8 and 26.5 S/P 3 PRBC Hb:8.8 Monitor CBC Transfuse PRBCs as needed (8) Hypokalemia: (9) Hypomagnesemia: Electrolyte abnormalities [hypokalemia, hypophosphatemia, hypomagnesemia hypocalcemia] Due to GI losses Replace as needed (10) COVID: First initial Covid test on 03/22, positive Symptoms started on 02/25 No acute disease on chest x-ray on admission. Saturating well on Room Air (11) Atrial flutter: Rate and rhythm controlled on sotalol Warfarin has been on hold in setting of lower GI bleed since last admission (12) CAD (coronary artery disease): H/O stent Previously was on lisinopril but discontinued secondary to hypotension Continue atorvastatin Also on sotalol (13) T2DM (type 2 diabetes mellitus): Last A1c 6.9 on 03/23, well controlled Hold Metformin Lantus/NovoLog per protocol (14) HTN (hypertension): H/O hypertension On metoprolol as outpatient Prior to most recent admission was also on lisinopril 10 mg daily, furosemide 40 mg daily and potassium chloride Lisinopril, furosemide and KCl were discontinued in setting of hypotension in the last admission Avoid any antihypertensives for now Monitor BP Currently on low-dose furosemide for chronic leg edema (15) Hypoalbuminemia: Hypoalbuminemia Chronic lower extremity edema Lasix as tolerated Dietitian consulted (16) Prolonged QT interval: On admission QTC 527 MS Avoid QTC prolonging meds (17) DVT prophylaxis: SCD/teds Re: GI Bleeding Encourage activity LUE Doppler show superficial venous thrombosis Code Status FULL CODE Disposition home with home health Total Time Total Time Spent Total Time Spent (In Minutes): 44 minutes Discharge Plan Discharge Items Patient Disposition: Home - Home Health Services Reason For Visit: HYPOTENNSION, COLITIS, ANEMIA Discharge Diagnosis: Acute gastrointestinal bleeding Colitis Anemia due to blood loss Hypokalemia Hypomagnesemia Activity: Per Instructions section Exercise/Sports: Gradually increase as tolerated Non-emergency contact: Primary Care Provider and Dividend Clerk Call non-emergency contact if: you have any medication questions, your symptoms worsen, your pain is concerning for you and you have a fever Follow-up/Referrals: Melba Pond CRNP [Nurse Practitioner] - (Date & Time 05/21/2021 11:00 AM Provider ADINA Jimenez Department Gastroenterology, [facility] ) Krupa Cornejo MD [Primary Care Provider] - (Date & Time 04/16/2021 11:00 AM Provider Nuno Cho MD Department [facility] ) Diet: Carb Consistent or DM2, Low Sodium (2gm) and Lactose Intolerant Addtl Attending Provider Instructions: Follow-up with your primary care physician on 04/16/2021 11:00 AM Follow-up with your numerical control lathe operator ADINA Holliday on 05/21/2021 11:00 AM Continue taking budesonide 9 mg daily until follow-up with your numerical control lathe operator. Further recommendations as per your numerical control lathe operator Take furosemide (Lasix) 20 mg on Friday, Friday, Friday as needed only for leg edema (Do not take furosemide if you have worsening of your diarrhea and discuss with your physician for further recommendations) Take Imodium as needed if diarrhea reoccurs. Seek immediate medical attention if your symptoms reoccur or worsen Please take all medications as instructed on discharge list below. Please call if you have any questions or problems. You can reach a [facility] hospitalist on duty at [facility] 24 hours a day by calling [phone] Pending Studies at Discharge: No Stand-Alone Forms: My [facility], Smoking Cessation Medications and DC Order Prescriptions: New furosemide 20 mg Tablet 20 mg PO UD Qty: 30 RF: 0 magnesium chloride [Mag 64] 64 mg Tablet,Delayed Release (Dr/Ec) 64 mg PO BID Qty: 60 RF: 0 loperamide 2 mg Capsule 2 mg PO BID PRN (Reason: loose stool) Qty: 60 RF: 0 budesonide 3 mg Capsule,Delayed,Extend.Release 9 mg PO QAM 30 Days Qty: 90 RF: 1 Continued atorvastatin [Lipitor] 40 mg Tablet 40 mg PO QPM RF: 0 sotalol 80 mg Tablet 80 mg PO BID RF: 0 multivitamin Tablet 1 tab PO QAM RF: 0 metformin 1,000 mg Tablet 1,000 mg PO BID RF: 0 zinc 50 mg Tablet 50 mg PO QAM RF: 0 cholecalciferol (vitamin D3) [Vitamin D3] 1,000 unit Capsule 1,000 unit PO QAM RF: 0 Trulicity 1.5 mg/0.5 mL Pen Injector 1.5 mg SUBCUT WK RF: 0 albuterol sulfate 90 mcg/actuation Hfa Aerosol Inhaler 1 puff INHALATION DIRECTED PRN (Reason: Shortness Of Breath) RF: 0 Discontinued metoprolol succinate 25 mg Tablet Extended Release 24 Hr 25 mg PO QAM RF: 0 Discharge Orders: Discharge Order (Routine); Ordered 04/09/21 Ordered By: Jake Murray Admission Data Admit Date/Time: 03/29/21 19:13 Attending Provider: Jake Murray Admit Provider: Genaro Brown Primary Care Provider: Krupa Cornejo Other Providers: Genaro Brown ; Jacky Whatley ; Brooklyn Nava
== END 2021-04-09 14:38 | disposition home health service (06) | DRG 177 ==
LOC: ED 15:41 → SUATTDRO 19:13 → 1E 19:13 → 2E 03-30 15:58 → 2S 04-04 22:42

== ENCOUNTER 2021-05-03 11:52 | Inpatient (IN) ==
[2021-05-03 14:54] LABS: Hematocrit (blood only) 23.4 % (42-52); Hemoglobin 7.5 g/dL (14.0-18.0); Mean Corpuscular Hemoglobin 30.5 pg (25-34); Mean Corpuscular Hgb Conc 32.1 g/dL (32-36); Mean Corpuscular Volume 95.1 fL (80-100); Mean Platelet Volume 9.9 fL (7.4-10.4); Platelet Count 473 K/uL (130-400); RDW Coefficient of Variation 16.5 % (11.5-14.5); RDW Standard Deviation 57.3 fL (36.4-46.3); Red Blood Count 2.46 M/uL (4.7-6.1); White Blood Count 10.67 K/uL (4.8-10.8)
[2021-05-03 15:00] LABS: Partial Thromboplastin Ratio 0.8; Partial Thromboplastin Time 21.3 Seconds (21.0-31.0); Prothrombin Time 10.2 Seconds (9.0-12.0)
[2021-05-03 15:20] LABS: Alanine Aminotransferase 20 U/L (12-78); Albumin Level 1.8 gm/dl (3.4-5.0); Aspartate Aminotransferase 9 U/L (15-37); BUN Creatinine Ratio 8.1 (10-20); Blood Urea Nitrogen 6 mg/dl (7-18); Calcium 7.9 mg/dl (8.5-10.1); Carbon Dioxide 28 mmol/L (21-32); Chloride 106 mmol/L (98-107); Est GFR (African American) 116.2 ml/min; Est GFR (Non-African American) 100.3 ml/min; Glucose 153 mg/dl (70-99); Sodium 139 mmol/L (136-145)
[2021-05-03 15:23] LABS: Albumin Globulin Ratio 0.4 (0.9-2); Alkaline Phosphatase 91 U/L (45-117); Bilirubin,Total 0.2 mg/dl (0.2-1); Globulin 4.2 gm/dl (2.5-4.0)
[2021-05-03] MEDS ORDERED: SODIUM CHLORIDE 0.9% 250 ML IV PRN ×2 (20:01→20:25)
[2021-05-03] MEDS ORDERED: FUROSEMIDE 40 MG/4 ML VIAL IV ONE (20:01)
[2021-05-03] MEDS ORDERED: POTASSIUM CHLORIDE CRTAB 20 MEQ TABCR PO STA (20:11)
[2021-05-03 21:15] LABS: Magnesium 1.8 mg/dl (1.8-2.4); Troponin I < 0.015 ng/ml (0-0.045)
--- NOTE | 2021-05-03 21:21 | History & Physical Report ---
Date of Service May 03, 2021 Assessment & Plan (1) SOB (shortness of breath): Plan: multifactorial : Decompensated heart failure (EF 45 to 50%, TTE 2020), subacute symptoms Symptomatic anemia, hemoglobin drop from baseline, ER visit 2 weeks ago for LGIB, history ulcerative colitis on mesalamine Patient with gross blood on rectal exam done at the ER. Leg swelling secondary to CHF rule out DVT HTN, BP on the lower side in the last few months as per hx CAD status post stent hx atrial flutter status post cardioversion off Coumadin secondary to recurrent GI bleed, px NSR hyperlipidemia on statin Rx DM2 on oral medications, well-controlled as of recent hemoglobin A1c of 6.1 last April 2021 past tobacco abuse PCU Diuretic Rx, strict I/Os, daily weights, fluid restriction, CHF education Cardiology consult Re: Decompensated CHF Transfuse PRBC to maintain hemoglobin above 8 LE Dopplers rule out DVT Decrease maintenance lisinopril dose for now given borderline BP GI consult Re: L GIB follow-up ISS BG goal 1 10-140, carb count coverage DVT prophylaxis. SCDs Re: Recurrent GI bleed Full code Patient's requesting updates from providers. Ms. Nessa Booker, contact #[phone]. Text document was generated using [employer] voice recognition software. It may contain grammatical or spelling errors. Kindly contact undersigned for clarification of any documentation item in question. 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 Medical history significant for chronic systolic/diastolic heart failure secondary to ischemic cardiomyopathy (EF 45 to 50%, TTE 2020), CAD post stent, atrial flutter status post cardioversion off Coumadin secondary to recurrent GI bleed, hypertension, hyperlipidemia, DM2 on oral medications, mild ulcerative colitis on budesonide, chronic anemia (baseline hemoglobin of 8-9), past tobacco abuse. Last confinement March 29 to April 09, 2021 for L GIB. Sigmoidoscopy revealed mild diffuse colitis without active bleeding. Pathology showed mild chronic colitis with moderate activity. Patient discharged on budesonide. 2 weeks ago, patient started by GI provider on mesalamine for ulcerative colitis. Dizziness after taking mesalamine as per patient. Patient seen at the ED 9 days ago for lightheadedness, abdominal cramping with lower GI bleed attributed to new mesalamine Rx. Hemoglobin noted to be 8.1 at the ER. Patient discharged home. Patient reverted back to budesonide Rx since stopping mesalamine. Coumadin on hold since ER visit. No GI bleed at home since as per patient/family. Worsening fatigue, exertional shortness of breath over the last few weeks as per patient/. Increase leg swelling/fluid retention up to the groin. Patient denies chest pain/belly pain. Patient compliant with home medications. SBP 90s, weight gain of about 10 pounds as per outpatient cardiology note today. Patient directed to the ER for evaluation. Medical Historyas above 2020 EGD normal 2020 colonoscopy showed pancolitis Surgical History :Tonsillectomy/adenoidectomy, ulnar nerve revision Family History : DM, heart disease Personal/Social history : Past tobacco abuse, occasional EtOH intake, currently on workers Compensation due to back issues Allergies Allergy/AdvReac Type Severity Reaction Status Date / Time gabapentin Allergy Mild Emotional Verified 04/24/21 16:00 changes (makes cry) Sulfa (Sulfonamide Allergy Mild Rash Verified 04/24/21 16:00 Antibiotics) cyclobenzaprine Allergy Unknown ON [facility] MED Verified 04/24/21 16:00 LIST mesalamine AdvReac Mild dizziness Verified 05/04/21 03:05 Home Medications Medication Instructions Recorded Confirmed Type cholecalciferol (vitamin D3) 25 1,000 unit PO DAILY 07/20/18 05/03/21 History mcg (1,000 unit) capsule (Vitamin D3) metformin 1,000 mg tablet 1,000 mg PO BID 07/20/18 05/03/21 History multivitamin 1 tab PO DAILY 07/20/18 05/03/21 History zinc 50 mg tablet 50 mg PO DAILY 07/20/18 05/03/21 History atorvastatin 40 mg tablet (Lipitor) 40 mg PO DAILY 02/29/20 05/03/21 History sotalol 80 mg tablet 80 mg PO BID 02/29/20 05/03/21 History dulaglutide 1.5 mg/0.5 mL 1.5 mg SUBCUT WK 09/19/20 05/03/21 History subcutaneous pen injector (Trulicity) magnesium chloride 64 mg 64 mg PO BID #60 tab 04/09/21 05/03/21 Rx (magnesium chloride) tablet,delayed release (Mag 64) furosemide 20 mg tablet 10 mg PO BID 04/24/21 05/03/21 History loperamide 2 mg capsule 4 mg PO DIRECTED PRN MDD 8 04/24/21 05/03/21 History TABS/24 HOURS albuterol sulfate 90 mcg/actuation 1 inh INHALATION UD 05/03/21 05/03/21 History aerosol inhaler (Ventolin HFA) budesonide 9 mg tablet,delayed and 9 mg PO DAILY 05/03/21 05/03/21 History extended release lisinopril 10 mg tablet 10 mg PO DAILY 05/03/21 05/03/21 History Past Med/Surg History Medical History (Updated 05/04/21 @ 10:05 by Niya Tang PA-C) Acute GI bleeding Anemia Diabetes mellitus, type 2 NIDDM (oral + injectable) DVT (deep venous thrombosis) HTN (hypertension) Hypokalemia Obesity Prolonged QT interval Restless leg syndrome Secondary polycythemia Supratherapeutic INR Surgical History H/O eye surgery Plugs implanted R/L eye for dry eye syndrome History of cardioversion x2 History of colonoscopy History of heart artery stent RCA (2003), Left circumflex (2004) History of tonsillectomy History of tooth extraction Family History Father Coronary heart disease Hypertension Mother Family history of diabetes mellitus Coronary heart disease Brother Diabetes Family history of diabetes mellitus Brother Family history of diabetes mellitus Other No family history of adverse response to anesthesia No known problems Social History Smoking Status: Unknown if ever smoked Tobacco Type: Cigarettes Second Hand Exposure: No; Hx Alcohol Use: Yes Alcohol type: hard liquor Alcohol type Comment: 3-4 shots 4 days a week Hx Substance Use: No Preferred Language: Albanian Communication Ability: Effective Power Project Manager Required: No Beliefs That Will Affect Care: None marital status: Current Living Situation: Spouse current occupational status: employed Feels Safe at Home: Yes Assistive Devices: None Review of Systems Review of Systems: As per HPI, all 10 systems reviewed, all other ROS negative Physical Exam Physical Exam: GENERAL: Comfortable, slightly anxious, morbidly obese, no respiratory distress SKIN: Pallor,, warm HEENT: Pale palpebral conjunctivae, no ptosis, dry buccal mucosa NECK : Supple, no tenderness CHEST : Decreased breath sounds, no tenderness HEART : RRR, no obvious murmurs ABDOMEN: Some distention, nontender RECTAL : Intact sphincter, dark red stool (FOBT positive) EXTREMITIES : Bilateral LE swelling, minimal LE tenderness, no other conspicuous deformities noted NEUROLOGIC : Coherent, no facial asymmetry, no other gross focality Results & Data Results & Data ([facility]) Vital Signs (Past 12 Hours) Vital Signs Temp Pulse Resp BP Pulse Ox 05/03/21 21:15 36.6 C 92 H 16 109/60 97 05/03/21 12:22 36.7 C 75 14 98/63 L 96 Laboratory Results Laboratory Results WBC 10.67 K/uL (4.8-10.8) 05/03/21 14:30 RBC 2.46 M/uL (4.7-6.1) L 05/03/21 14:30 Hgb 7.5 g/dL (14.0-18.0) L 05/03/21 14:30 Hct 23.4 % (42-52) L 05/03/21 14:30 MCV 95.1 fL (80-100) 05/03/21 14:30 MCH 30.5 pg (25-34) 05/03/21 14:30 MCHC 32.1 g/dL (32-36) 05/03/21 14:30 RDW Std Deviation 57.3 fL (36.4-46.3) H 05/03/21 14:30 RDW Coeff of Mychal 16.5 % (11.5-14.5) H 05/03/21 14:30 Plt Count 473 K/uL (130-400) H 05/03/21 14:30 MPV 9.9 fL (7.4-10.4) 05/03/21 14:30 PT 10.2 Seconds (9.0-12.0) 05/03/21 14:30 INR 1.0 (0.9-1.1) 05/03/21 14:30 APTT 21.3 Seconds (21.0-31.0) 05/03/21 14:30 PTT Ratio 0.8 05/03/21 14:30 Sodium 139 mmol/L (136-145) 05/03/21 14:30 Potassium 3.0 mmol/L (3.5-5.1) L 05/03/21 14:30 Chloride 106 mmol/L (98-107) 05/03/21 14:30 Carbon Dioxide 28 mmol/L (21-32) 05/03/21 14:30 Anion Gap 5.0 (3-11) 05/03/21 14:30 BUN 6 mg/dl (7-18) L 05/03/21 14:30 Creatinine 0.74 mg/dl (0.6-1.4) 05/03/21 14:30 Est Cr Clr Drug Dosing Not Reportable 05/03/21 14:30 Est GFR ( Amer) 116.2 ml/min 05/03/21 14:30 Est GFR (Non-Af Amer) 100.3 ml/min 05/03/21 14:30 BUN/Creatinine Ratio 8.1 (10-20) L 05/03/21 14:30 Glucose 153 mg/dl (70-99) H 05/03/21 14:30 Calcium 7.9 mg/dl (8.5-10.1) L 05/03/21 14:30 Magnesium 1.8 mg/dl (1.8-2.4) 05/03/21 14:30 Total Bilirubin 0.2 mg/dl (0.2-1) 05/03/21 14:30 AST 9 U/L (15-37) L 05/03/21 14:30 ALT 20 U/L (12-78) 05/03/21 14:30 Alkaline Phosphatase 91 U/L (45-117) 05/03/21 14:30 Troponin I < 0.015 ng/ml (0-0.045) 05/03/21 14:30 Total Protein 6.0 gm/dl (6.4-8.2) L 05/03/21 14:30 Albumin 1.8 gm/dl (3.4-5.0) L 05/03/21 14:30 Globulin 4.2 gm/dl (2.5-4.0) H 05/03/21 14:30 Albumin/Globulin Ratio 0.4 (0.9-2) L 05/03/21 14:30 TSH 2.860 uIu/ml (0.300-4.500) 05/03/21 14:30 Blood Type A Positive 05/03/21 14:30 Antibody Screen NEGATIVE 05/03/21 14:30 Crossmatch See Detail 05/03/21 14:30 Diagnostic Findings Chest x-ray as per my interpretation congestion EKG as per my interpretation : Rate 90, NSR, normal axis, diffuse T wave abnormalities over limb leads, low voltage
--- NOTE | 2021-05-03 22:04 | Emergency Department Note ---
Impression & Plan Fluid overload, Anemia, Congestive heart failure ED Provider Note Name: WILBER MAYEN Jr Age: 61 Sex: M Arrives Via: Walk-In Informant: Patient, ED Provider: Guido Alejandra MD Chief Complaint: Fluid Overload Impression: As per impressions above Medical Decision Makin-year-old gentleman with extensive past medical history including CAD with CHF. Patient has been hospitalized last month for Covid and since then has been having worsening heart failure symptoms. He has increasing swelling of legs all the way up to his abdomen or low back despite outpatient therapy. On top of this he has been dealing with some colitis causing diarrhea though denies any blood in stool. Patient was sent by his cardiology service for evaluation. Patient on examination is severely fluid overloaded and dyspneic with even just talking. Vital signs are stable fortunately without significant hypoxia. Chest x-ray with cardiomegaly though no pulmonary edema. EKG unremarkable. Labs reveal hemoglobin of 7.5 which is below his baseline of 9-10. That said he seems to be have been trending down. As he is now hemoglobin less than 8 with significant coronary artery disease and symptomatic dyspnea I feel that transfusion is reasonable. Furthermore he was given 40 mg IV Lasix prior to transfusion due to his already fluid overload status. This patient is too unwell to attempt treating this in the ER prior to discharge. This I have consulted the hospitalist service for further management after discussion with cardiology who agreed with this plan of action. I do not believe patient is septic and at the moment there is no obvious source of bleeding. I suspect his anemia is secondary to chronic disease and malnutrition though in addition fluid overload may be part of the problem. Given the findings I feel PE is unlikely at the current time he does not appear to be having acute coronary syndrome. There is not appear to be any acute infection at this time either Prior Medical Record and Triage/Nursing Notes reviewed by Me Additional history obtained from chart Differentials:Infection, dehydration, metabolic abnormality, hypo/hyperglycemia, electrolyte disturbance, anemia, hypoxia, cardiac sources, intracerebral event, toxicologic, neurologic, as well as other pathologies. Vital Signs: reviewed and remarkable for no significant abnormalities Interventions: saline lock, lasix 40mg iv, 1 Unit PRBC Labs:Reviewed and remarkable for anemia Imaging:See Below EKG:Per My Interpretation: Indication Shortness of breath: NSR 88 bpm, qtc 486. No Ectopy. No Ischemia. Compared to EKG 04/24/21, no significant changes. Cardiac/Tele Monitoring: Cardiac Monitoring: An Order was placed for continuous cardiac monitoring. The monitor shows a rate of 80 with a normal sinus rhythm. Consults:Dr Levine [facility], Dr Kong Hospitalist Plan: Disposition:Hospitalization Condition: Fair History of Present Illness: This is a 61-year-old gentleman who arrives for evaluation of heart failure. Patient notes he has been having increasing leg swelling and weight gain over the last few weeks. This is rapidly worsened over the last few days. He notes swelling of legs extending up to abdomen and low back. He states his abdomen feels full but has no abdominal tenderness or pain. Patient has also notes that he has been having increasing shortness of breath and weakness with any exertion. His notes that he has been unable to ambulate due to severe weakness and becoming quite dyspneic with any exertion. Patient denies any specific chest pain, syncope, headache, bleeding, bruising, rashes, fevers, chills, vomiting, diarrhea, no other symptoms. Patient was recently admitted for Covid. He states his symptoms have worsened since he was discharged. He was evaluated by his cardiology PA this morning and was advised to go to the ER for admission. Patient notes he currently feels sore just from sitting in the waiting room for the last several hours. ROS: See above HPI for pertinent positives & negatives. A total of 10 systems reviewed and were otherwise negative. Past Medical History:See Below Past Surgical History:See Below Family History:See Below Social History:See Below Home Medications:See Below Allergies:See Below Vitals:Blood Pressure: 123/88, Pulse 89, RR 20, T 36.7C, O2 99% on RA Physical Exam: GENERAL: Patient is tired and unwell appearing and in minimal distress. EYES: No scleral icterus, unremarkable pupils. Pale conjunctiva ENT: Mucous membranes moist, no nasal congestion. NECK: No masses appreciated, nomeningismus, trachea is midline. RESPIRATORY: Crackles at bases. Mild dyspnea. No wheeze, no rhonchi. CARDIOVASCULAR: Regular rate and rhythm.No murmurs, rubs, gallops appreciated. GASTROINTESTINAL: Abdomen soft, non-tender, no peritonitis.Bowel sounds positive.No masses appreciated. BACK: Low back edema. No midline tenderness, no CVA tenderness EXTREMITIES: Normal motion all extremities, no cyanosis, ++4 edema. NEUROLOGIC: Alert and oriented, no acute motor or sensory deficits, no focal weakness, cranial nerves grossly intact. SKIN: No rash, no jaundice, no diaphoresis. Pale PSYCH: Appropriate GCS: 15 ED Course: Times/Reassessments: Patient stable comfortable and tolerating blood infusion well Critical Care: I have personally spent 30 minutes of critical care time in the direct management of this patient. Acute anemia requiring blood transfusion. This was a life/limb threatening event. This 30 minutes is in excess of all separately billable procedures. Guido Alejandra MD Past Med/Surg History Medical History Anemia CAD (coronary artery disease) RCA stent (2003), Left circumflex stent (2004) Diabetes mellitus, type 2 NIDDM (oral + injectable) HLD (hyperlipidemia) HTN (hypertension) Hypokalemia Obesity Paroxysmal atrial flutter s/p cardioversion (02/2020) Restless leg syndrome Secondary polycythemia Surgical History H/O eye surgery Plugs implanted R/L eye for dry eye syndrome History of cardioversion x2 History of colonoscopy History of heart artery stent RCA (2003), Left circumflex (2004) History of tonsillectomy History of tooth extraction Family History Father Coronary heart disease Hypertension Mother Family history of diabetes mellitus Coronary heart disease Brother Diabetes Family history of diabetes mellitus Brother Family history of diabetes mellitus Other No family history of adverse response to anesthesia No known problems Social History Smoking Status: Former smoker Tobacco Type: Cigarettes Second Hand Exposure: No; Hx Alcohol Use: No Hx Substance Use: No Preferred Language: Montenegrin Communication Ability: Unable 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 Required: No Beliefs That Will Affect Care: None marital status: Current Living Situation: Spouse current occupational status: employed Feels Safe at Home: Yes Assistive Devices: None Allergies Allergies Allergy/AdvReac Type Severity Reaction Status Date / Time gabapentin Allergy Mild Emotional Verified 04/24/21 16:00 changes (makes cry) Sulfa (Sulfonamide Allergy Mild Rash Verified 04/24/21 16:00 Antibiotics) cyclobenzaprine Allergy Unknown ON [facility] MED Verified 04/24/21 16:00 LIST Home Meds Home Medications Medication Instructions Recorded Confirmed cholecalciferol (vitamin D3) 25 1,000 unit PO DAILY 07/20/18 05/03/21 mcg (1,000 unit) capsule (Vitamin D3) metformin 1,000 mg tablet 1,000 mg PO BID 07/20/18 05/03/21 multivitamin 1 tab PO DAILY 07/20/18 05/03/21 zinc 50 mg tablet 50 mg PO DAILY 07/20/18 05/03/21 atorvastatin 40 mg tablet (Lipitor) 40 mg PO DAILY 02/29/20 05/03/21 sotalol 80 mg tablet 80 mg PO BID 02/29/20 05/03/21 dulaglutide 1.5 mg/0.5 mL 1.5 mg SUBCUT WK 09/19/20 05/03/21 subcutaneous pen injector (Trulicity) furosemide 20 mg tablet 10 mg PO BID 04/24/21 05/03/21 loperamide 2 mg capsule 4 mg PO DIRECTED PRN MDD 8 04/24/21 05/03/21 TABS/24 HOURS albuterol sulfate 90 mcg/actuation 1 inh INHALATION UD 05/03/21 05/03/21 aerosol inhaler (Ventolin HFA) budesonide 9 mg tablet,delayed and 9 mg PO DAILY 05/03/21 05/03/21 extended release lisinopril 10 mg tablet 10 mg PO DAILY 05/03/21 05/03/21 Previous Rx's Medication Instructions Recorded magnesium chloride 64 mg 64 mg PO BID #60 tab 04/09/21 (magnesium chloride) tablet,delayed release (Mag 64) Results & Data (ED) Vital Signs Vital Signs - 24 hr 05/03/21 12:22 05/03/21 21:15 05/03/21 21:30 Temperature 36.7 C 36.6 C 36.8 C Temperature Source Temporal Artery Scan Oral Oral Pulse Rate 75 92 H 95 H Respiratory Rate 14 16 18 Blood Pressure 98/63 L 109/60 124/75 Blood Pressure Mean 74 76 91 Pulse Oximetry 96 97 98 Oxygen Delivery Method Room Air Sepsis Recent Fever Within 48 Hours No Sepsis New/Unexplained Change in Mental Status No Sepsis Action Taken by Nursing No Action Required 05/03/21 21:45 05/03/21 22:15 05/03/21 22:45 Temperature 36.7 C 36.8 C 36.8 C Temperature Source Oral Oral Oral Pulse Rate 89 87 92 H Respiratory Rate 20 18 18 Blood Pressure 123/88 105/76 123/75 Blood Pressure Mean 99 85 91 Pulse Oximetry 99 96 95 Oxygen Delivery Method Sepsis Recent Fever Within 48 Hours Sepsis New/Unexplained Change in Mental Status Sepsis Action Taken by Nursing Laboratory Data Result diagrams: 05/03/21 14:30 05/03/21 14:30 Lab Results 05/03/21 05/03/21 05/03/21 Range/Units 14:30 14:30 14:30 WBC 10.67 (4.8-10.8) K/uL RBC 2.46 L (4.7-6.1) M/uL Hgb 7.5 L (14.0-18.0) g/dL Hct 23.4 L (42-52) % MCV 95.1 (80-100) fL MCH 30.5 (25-34) pg MCHC 32.1 (32-36) g/dL RDW Std Deviation 57.3 H (36.4-46.3) fL RDW Coeff of Mychal 16.5 H (11.5-14.5) % Plt Count 473 H (130-400) K/uL MPV 9.9 (7.4-10.4) fL PT 10.2 (9.0-12.0) Seconds INR 1.0 (0.9-1.1) APTT 21.3 (21.0-31.0) Seconds PTT Ratio 0.8 Sodium (136-145) mmol/L Potassium (3.5-5.1) mmol/L Chloride (98-107) mmol/L Carbon Dioxide (21-32) mmol/L Anion Gap (3-11) BUN (7-18) mg/dl Creatinine (0.6-1.4) mg/dl Est Cr Clr Drug Dosing Est GFR ( Amer) ml/min Est GFR (Non-Af Amer) ml/min BUN/Creatinine Ratio (10-20) Glucose (70-99) mg/dl Lactate (0.4-2.0) mmol/L Calcium (8.5-10.1) mg/dl Magnesium (1.8-2.4) mg/dl Total Bilirubin (0.2-1) mg/dl AST (15-37) U/L ALT (12-78) U/L Alkaline Phosphatase (45-117) U/L Troponin I (0-0.045) ng/ml Total Protein (6.4-8.2) gm/dl Albumin (3.4-5.0) gm/dl Globulin (2.5-4.0) gm/dl Albumin/Globulin Ratio (0.9-2) TSH (0.300-4.500) uIu/ml Blood Type A Positive Antibody Screen NEGATIVE Crossmatch See Detail 05/03/21 05/03/21 05/03/21 Range/Units 14:30 14:30 21:11 WBC (4.8-10.8) K/uL RBC (4.7-6.1) M/uL Hgb (14.0-18.0) g/dL Hct (42-52) % MCV (80-100) fL MCH (25-34) pg MCHC (32-36) g/dL RDW Std Deviation (36.4-46.3) fL RDW Coeff of Mychal (11.5-14.5) % Plt Count (130-400) K/uL MPV (7.4-10.4) fL PT (9.0-12.0) Seconds INR (0.9-1.1) APTT (21.0-31.0) Seconds PTT Ratio Sodium 139 (136-145) mmol/L Potassium 3.0 L (3.5-5.1) mmol/L Chloride 106 (98-107) mmol/L Carbon Dioxide 28 (21-32) mmol/L Anion Gap 5.0 (3-11) BUN 6 L (7-18) mg/dl Creatinine 0.74 (0.6-1.4) mg/dl Est Cr Clr Drug Dosing Not Reportable Est GFR ( Amer) 116.2 ml/min Est GFR (Non-Af Amer) 100.3 ml/min BUN/Creatinine Ratio 8.1 L (10-20) Glucose 153 H (70-99) mg/dl Lactate 1.6 (0.4-2.0) mmol/L Calcium 7.9 L (8.5-10.1) mg/dl Magnesium 1.8 (1.8-2.4) mg/dl Total Bilirubin 0.2 (0.2-1) mg/dl AST 9 L (15-37) U/L ALT 20 (12-78) U/L Alkaline Phosphatase 91 (45-117) U/L Troponin I < 0.015 (0-0.045) ng/ml Total Protein 6.0 L (6.4-8.2) gm/dl Albumin 1.8 L (3.4-5.0) gm/dl Globulin 4.2 H (2.5-4.0) gm/dl Albumin/Globulin Ratio 0.4 L (0.9-2) TSH 2.860 (0.300-4.500) uIu/ml Blood Type Antibody Screen Crossmatch Administered Medications Discontinued Medications Furosemide (Furosemide 40 Mg/4 Ml Vial) 40 mg IV ONE ONE Stop: 05/03/21 20:02 Last Admin: 05/03/21 20:37 Dose: 40 mg Documented by: [id number] Potassium Chloride (Potassium Chloride Crtab 20 Meq Tabcr) 40 meq PO NOW STA Stop: 05/03/21 20:12 Last Admin: 05/03/21 21:59 Dose: 40 meq Documented by: [id number] Discharge Plan Visit Data Chief Complaint: Abnormal Labs/Diagnostic Testing Stated Complaint: BLOOD COUNT LOW,SWELLING,REF BY DOC ED Provider: Guido Alejandra Discharge Problem: Fluid overload, Anemia, Congestive heart failure Forms Stand Alone Forms: My [facility] Prescriptions Prescriptions: No Action atorvastatin [Lipitor] 40 mg Tablet 40 mg PO DAILY RF: 0 sotalol 80 mg Tablet 80 mg PO BID RF: 0 multivitamin Tablet 1 tab PO DAILY RF: 0 metformin 1,000 mg Tablet 1,000 mg PO BID RF: 0 zinc 50 mg Tablet 50 mg PO DAILY RF: 0 cholecalciferol (vitamin D3) [Vitamin D3] 1,000 unit Capsule 1,000 unit PO DAILY RF: 0 magnesium chloride [Mag 64] 64 mg Tablet,Delayed Release (Dr/Ec) 64 mg PO BID Qty: 60 RF: 0 lisinopril 10 mg tablet 10 mg PO DAILY RF: 0 albuterol sulfate [Ventolin HFA] 90 mcg/actuation Hfa Aerosol Inhaler 1 inh INHALATION UD RF: 0 budesonide 9 mg tablet,delayed and ext.release 9 mg PO DAILY RF: 0 Trulicity 1.5 mg/0.5 mL Pen Injector 1.5 mg SUBCUT WK RF: 0 loperamide 2 mg capsule 4 mg PO DIRECTED MDD 8 TABS/24 HOURS PRN (Reason: loose stool) RF: 0 furosemide 20 mg tablet 10 mg PO BID RF: 0 Referrals Referrals: Krupa Cornejo MD [Primary Care Provider] - Discharge Problem: Fluid overload Qualifiers: Hypervolemia type: unspecified Qualified Code(s): E87.70 - Fluid overload, unspecified Anemia Qualifiers: Anemia type: other cause Other causes of anemia: other cause, not classified Qualified Code(s): D64.89 - Other specified anemias Congestive heart failure Qualifiers: Heart failure type: other Qualified Code(s): I50.9 - Heart failure, unspecified
[2021-05-03] MEDS ORDERED: POTASSIUM CHLORIDE CRTAB 20 MEQ TABCR PO ONE (23:30)
[2021-05-04] MEDS ORDERED: PROMETHAZINE HCL 12.5 MG in SODIUM CHLORIDE 0.9% 50 ML IV PRN (01:27)
[2021-05-04] MEDS ORDERED: traMADol HCL 50 MG TABLET PO PRN (01:27)
[2021-05-04] MEDS ORDERED: ACETAMINOPHEN 325 MG TAB PO PRN (01:27)
[2021-05-04] MEDS ORDERED: GLUCOSE 40% GEL 15 GM TUBE PO PRN (01:27)
[2021-05-04] MEDS ORDERED: GLUCOSE 10 TABS/TUBE PO PRN (01:27)
[2021-05-04] MEDS ORDERED: GLUCAGON FOR INJ 1 MG VIAL SQ PRN (01:27)
[2021-05-04] MEDS ORDERED: CARBOHYDRATES FOR HYPOGLYCEMIA PO PRN (01:27)
[2021-05-04] MEDS ORDERED: DEXTROSE 50% 50 ML SYRINGE IV PRN (01:27)
[2021-05-04] MEDS: INSULIN ASPART 100 UNITS/ML 3 ML PEN SC SCH ×5 (01:39→20:53)
[2021-05-04] MEDS ORDERED: PATIENT'S HEIGHT AND/OR WEIGHT NEEDED SCH (01:45)
[2021-05-04] MEDS: SOTALOL HCL 80 MG TAB PO SCH ×3 (02:48→20:47)
--- NOTE | 2021-05-04 04:55 | Communication Note ---
Date of Service: May 04, 2021 LE Dopplers initial read: Comparison is to prior examon 03/30/2021. No deep venous thrombosis identified in the right lower extremity. Thrombus is noted within the left popliteal vein, gastrocnemius veins, posterior tibial vein, and peroneal veins. This is newcompared to prior exam. Soft tissue edema. AP LLE DVT Follow official read. Vascular surgery consult for IVC filter placement if official CT read confirms new DVT given current contraindication to anticoagulation.
[2021-05-04 06:08] LABS: Basophils # (auto) 0.08 K/uL (0-0.2); Basophils % (auto) 0.7 %; Eosinophils # (auto) 0.45 K/uL (0-0.5); Eosinophils % (auto) 3.8 %; Hematocrit (blood only) 26.8 % (42-52); Hemoglobin 8.5 g/dL (14.0-18.0); Immature Granulocytes # (auto) 0.03 K/uL (0.00-0.02); Immature Granulocytes % (auto) 0.3 %; Lymphocytes # (auto) 1.62 K/uL (1.2-3.4); Lymphocytes % (auto) 13.8 %; Mean Corpuscular Hemoglobin 29.5 pg (25-34); Mean Corpuscular Hgb Conc 31.7 g/dL (32-36); Mean Corpuscular Volume 93.1 fL (80-100); Mean Platelet Volume 10.3 fL (7.4-10.4); Monocytes # (auto) 1.19 K/uL (0.11-0.59); Monocytes % (auto) 10.1 %; Neutrophils # (auto) 8.41 K/uL (1.4-6.5); Neutrophils % (auto) 71.3 %; Platelet Count 444 K/uL (130-400); RDW Coefficient of Variation 17.3 % (11.5-14.5); RDW Standard Deviation 58.7 fL (36.4-46.3); Red Blood Count 2.88 M/uL (4.7-6.1); White Blood Count 11.78 K/uL (4.8-10.8)
[2021-05-04 06:13] LABS: Partial Thromboplastin Ratio 0.9; Partial Thromboplastin Time 22.7 Seconds (21.0-31.0)
[2021-05-04 06:18] LABS: BUN Creatinine Ratio 9.9 (10-20); Calcium 7.7 mg/dl (8.5-10.1); Creatinine Clr Calc Pharmacy 182.4 ml/min; Est GFR (African American) 125.8 ml/min; Est GFR (Non-African American) 108.5 ml/min; Potassium 3.2 mmol/L (3.5-5.1)
--- NOTE | 2021-05-04 07:12 | Ultrasound Report ---
BILATERAL LOWER EXTREMITY VENOUS DOPPLER HISTORY: Bilateral leg swelling COMPARISON STUDY: None. FINDINGS: There is normal compressibility, flow, and augmentation within the right lower extremity de ep venous system. Thrombus identified within the left popliteal, posterior tibial, peroneal, and a singh perficial gastrocnemius vein. This is new from the prior study. IMPRESSION: 1. No DVT within the right lower extremity. 2. There is acute DVT within the left lower extremity as described above. ACT 112: Negative or not required by law. Electronically signed by: Kennedy Reardon M.D. 05/04/2021 7:10 AM
--- NOTE | 2021-05-04 07:53 | XRay Report ---
XR chest 1V portable HISTORY: fatigue COMPARISON: Chest 03/29/2021. FINDINGS: No pneumothorax. There are small bilateral pleural effusions. The heart remains mildly enla rged. There is interval development of mild interstitial pulmonary edema. No focal lung consolidation s to suggest pneumonia. IMPRESSION: Interval development of mild interstitial pulmonary edema and small bilateral pleural effusions. ACT 112: Negative or not required by law. Electronically signed by: Kennedy Reardon M.D. 05/04/2021 7:52 AM
[2021-05-04] MEDS ORDERED: FUROSEMIDE 40 MG/4 ML VIAL IV ONE (08:00)
[2021-05-04] MEDS ORDERED: ALBUMIN 25% 12.5 GM/50 ML VIAL IV ONE (08:00)
[2021-05-04] MEDS: ATORVASTATIN 40 MG TAB PO SCH (08:31)
[2021-05-04] MEDS: BUDESONIDE EC 3 MG CAP PO SCH (08:32)
[2021-05-04] MEDS: MULTIVITAMIN TAB PO SCH (08:33)
[2021-05-04] MEDS: POTASSIUM CHLORIDE CRTAB 20 MEQ TABCR PO SCH ×2 (08:33→21:16)
[2021-05-04] MEDS ORDERED: lisinopril 2.5 MG TAB PO SCH (09:00)
--- NOTE | 2021-05-04 09:12 | Cardiology Consultation ---
Date of Consultation May 04, 2021 Assessment & Plan (1) Hypoalbuminemia: (2) Diarrhea: (3) Anemia: (4) Fluid overload: (5) Colitis: This patient's problems are more related to his colitis with chronic diarrhea, protein malnutrition and profound anemia from chronic bleeding. They are less the result of of heart failure. His last echocardiogram indicated a low normal EF of around 45 to 50%. The GI service will be seeing the patient and hopefully will be able to get his colitis under better control. I would leave him off of anticoagulation. Will to DC his lisinopril due to low blood pressure. I think we can try and diurese him. History of Present Illness Attending Physician: Jake Murray MD History of Present Illness This is a 61-year-old male patient with a history of paroxysmal atrial flutter and coronary artery disease with previous coronary stent. Earlier this year the patient had a Covid infection and ever since that time he has had chronic persistent diarrhea. In March he was on anticoagulation due to his PAF and had bloody stools. He was admitted and taken off of anticoagulation. He has been followed by the GI service with a diagnosis of ulcerative colitis. He has never had resolution of his diarrhea. He presented with anasarca and profound anemia. He was referred to the emergency department where he has received a unit of blood and a single dose of diuretics. He denies orthopnea or shortness of breath. He is edematous up to his thighs bilaterally. Allergies Allergy/AdvReac Type Severity Reaction Status Date / Time gabapentin Allergy Mild Emotional Verified 04/24/21 16:00 changes (makes cry) Sulfa (Sulfonamide Allergy Mild Rash Verified 04/24/21 16:00 Antibiotics) cyclobenzaprine Allergy Unknown ON [facility] Verified 04/24/21 16:00 LIST mesalamine AdvReac Mild dizziness Verified 05/04/21 03:05 Home Medications Medication Instructions Recorded Confirmed Type cholecalciferol (vitamin D3) 25 1,000 unit PO DAILY 07/20/18 05/03/21 History mcg (1,000 unit) capsule (Vitamin D3) metformin 1,000 mg tablet 1,000 mg PO BID 07/20/18 05/03/21 History multivitamin 1 tab PO DAILY 07/20/18 05/03/21 History zinc 50 mg tablet 50 mg PO DAILY 07/20/18 05/03/21 History atorvastatin 40 mg tablet (Lipitor) 40 mg PO DAILY 02/29/20 05/03/21 History sotalol 80 mg tablet 80 mg PO BID 02/29/20 05/03/21 History dulaglutide 1.5 mg/0.5 mL 1.5 mg SUBCUT WK 09/19/20 05/03/21 History subcutaneous pen injector (Trulicity) magnesium chloride 64 mg 64 mg PO BID #60 tab 04/09/21 05/03/21 Rx (magnesium chloride) tablet,delayed release (Mag 64) furosemide 20 mg tablet 10 mg PO BID 04/24/21 05/03/21 History loperamide 2 mg capsule 4 mg PO DIRECTED PRN MDD 8 04/24/21 05/03/21 History TABS/24 HOURS albuterol sulfate 90 mcg/actuation 1 inh INHALATION UD 05/03/21 05/03/21 History aerosol inhaler (Ventolin HFA) budesonide 9 mg tablet,delayed and 9 mg PO DAILY 05/03/21 05/03/21 History extended release lisinopril 10 mg tablet 10 mg PO DAILY 05/03/21 05/03/21 History Patient History Medical History (Updated 05/04/21 @ 10:05 by Niya Tang PA-C) Acute GI bleeding Anemia Diabetes mellitus, type 2 NIDDM (oral + injectable) DVT (deep venous thrombosis) HTN (hypertension) Hypokalemia Obesity Prolonged QT interval Restless leg syndrome Secondary polycythemia Supratherapeutic INR Surgical History H/O eye surgery Plugs implanted R/L eye for dry eye syndrome History of cardioversion x2 History of colonoscopy History of heart artery stent RCA (2003), Left circumflex (2004) History of tonsillectomy History of tooth extraction Family History Father Coronary heart disease Hypertension Mother Family history of diabetes mellitus Coronary heart disease Brother Diabetes Family history of diabetes mellitus Brother Family history of diabetes mellitus Other No family history of adverse response to anesthesia No known problems Social History Smoking Status: Unknown if ever smoked Tobacco Type: Cigarettes Second Hand Exposure: No; Hx Alcohol Use: Yes Alcohol type: hard liquor Alcohol type Comment: 3-4 shots 4 days a week Hx Substance Use: No Preferred Language: Uzbek Communication Ability: Effective Claim Manager Required: No Beliefs That Will Affect Care: None marital status: Current Living Situation: Spouse current occupational status: employed Feels Safe at Home: Yes Assistive Devices: None Review of Systems Review of Systems: Review of Systems: See HPI for pertinent positives. All other 10 point review of systems are negative. Physical Exam Physical Exam: General: no acute distress and stated age Head: normocephalic, no masses, lesions, tenderness or abnormalities Eyes: conjunctiva are pink and non-injected, sclera clear Neck: supple, no adenopathy, no bruits, normal jugular venous pulse, no hepatojugular reflux Chest: normal shape and normal respiratory effort Lungs: clear to auscultation and percussion Cardiac Exam: - regular rate & rhythm, no murmurs gallops or rubs - normal S1, normal S2 Pulses: 2(+) throughout Abdomen: abdomen soft, non-tender, no abnormal masses and no hepatosplenomegaly Musculoskeletal: no gait disturbance, no joint inflammation, no deforming arthritis Extremities: Edema to the thighs bilaterally. Neuro: grossly normal exam Results & Data ([facility]) Vital Signs (Past 12 Hours) Vital Signs Temp Pulse Pulse Resp BP BP Pulse Ox 05/04/21 07:27 37.1 C 81 16 102/57 L 93 05/04/21 06:00 68 20 97/58 L 96 05/04/21 04:10 90 20 118/78 96 05/04/21 01:47 95 H 21 106/77 94 05/04/21 01:38 95 H 16 129/89 05/04/21 01:01 109 H 16 101/60 96 05/04/21 00:29 96 H 16 98/68 L 99 05/03/21 23:15 36.7 C 92 H 19 116/76 97 05/03/21 23:01 54 L 16 118/72 96 05/03/21 22:45 36.8 C 92 H 18 123/75 95 05/03/21 22:15 36.8 C 87 18 105/76 96 05/03/21 21:45 36.7 C 89 20 123/88 99 05/03/21 21:30 36.8 C 95 H 18 124/75 98 05/03/21 21:15 36.6 C 92 H 16 109/60 97 Pulse Ox 05/04/21 07:27 05/04/21 06:00 05/04/21 04:10 05/04/21 01:47 05/04/21 01:38 95 05/04/21 01:01 05/04/21 00:29 05/03/21 23:15 05/03/21 23:01 05/03/21 22:45 05/03/21 22:15 05/03/21 21:45 05/03/21 21:30 05/03/21 21:15 Laboratory Results Laboratory Results - last 24 hr 05/03/21 05/03/21 05/03/21 14:30 14:30 14:30 WBC 10.67 RBC 2.46 L Hgb 7.5 L Hct 23.4 L MCV 95.1 MCH 30.5 MCHC 32.1 RDW Std Deviation 57.3 H RDW Coeff of Mychal 16.5 H Plt Count 473 H MPV 9.9 Immature Gran % (Auto) Neut % (Auto) Lymph % (Auto) [place] % (Auto) Eos % (Auto) Baso % (Auto) Neut # (Auto) Lymph # (Auto) [place] # (Auto) Eos # (Auto) Baso # (Auto) Immature Gran # (Auto) PT 10.2 INR 1.0 APTT 21.3 PTT Ratio 0.8 Sodium Potassium Chloride Carbon Dioxide Anion Gap BUN Creatinine Est Cr Clr Drug Dosing Est GFR ( Amer) Est GFR (Non-Af Amer) BUN/Creatinine Ratio Glucose POC Glucose Lactate Calcium Magnesium Total Bilirubin AST ALT Alkaline Phosphatase Troponin I Total Protein Albumin Globulin Albumin/Globulin Ratio TSH SARS-CoV-2, RNA, NAAT Blood Type A Positive Antibody Screen NEGATIVE Crossmatch See Detail 05/03/21 05/03/21 05/03/21 14:30 14:30 21:11 WBC RBC Hgb Hct MCV MCH MCHC RDW Std Deviation RDW Coeff of Mychal Plt Count MPV Immature Gran % (Auto) Neut % (Auto) Lymph % (Auto) [place] % (Auto) Eos % (Auto) Baso % (Auto) Neut # (Auto) Lymph # (Auto) [place] # (Auto) Eos # (Auto) Baso # (Auto) Immature Gran # (Auto) PT INR APTT PTT Ratio Sodium 139 Potassium 3.0 L Chloride 106 Carbon Dioxide 28 Anion Gap 5.0 BUN 6 L Creatinine 0.74 Est Cr Clr Drug Dosing Not Reportable Est GFR ( Amer) 116.2 Est GFR (Non-Af Amer) 100.3 BUN/Creatinine Ratio 8.1 L Glucose 153 H POC Glucose Lactate 1.6 Calcium 7.9 L Magnesium 1.8 Total Bilirubin 0.2 AST 9 L ALT 20 Alkaline Phosphatase 91 Troponin I < 0.015 Total Protein 6.0 L Albumin 1.8 L Globulin 4.2 H Albumin/Globulin Ratio 0.4 L TSH 2.860 SARS-CoV-2, RNA, NAAT Blood Type Antibody Screen Crossmatch 05/03/21 05/04/21 05/04/21 22:35 01:36 05:16 WBC 11.78 H RBC 2.88 L Hgb 8.5 L Hct 26.8 L MCV 93.1 MCH 29.5 MCHC 31.7 L RDW Std Deviation 58.7 H RDW Coeff of Mychal 17.3 H Plt Count 444 H MPV 10.3 Immature Gran % (Auto) 0.3 Neut % (Auto) 71.3 Lymph % (Auto) 13.8 [place] % (Auto) 10.1 Eos % (Auto) 3.8 Baso % (Auto) 0.7 Neut # (Auto) 8.41 H Lymph # (Auto) 1.62 [place] # (Auto) 1.19 H Eos # (Auto) 0.45 Baso # (Auto) 0.08 Immature Gran # (Auto) 0.03 H PT INR APTT PTT Ratio Sodium Potassium Chloride Carbon Dioxide Anion Gap BUN Creatinine Est Cr Clr Drug Dosing Est GFR ( Amer) Est GFR (Non-Af Amer) BUN/Creatinine Ratio Glucose POC Glucose 96 Lactate Calcium Magnesium Total Bilirubin AST ALT Alkaline Phosphatase Troponin I Total Protein Albumin Globulin Albumin/Globulin Ratio TSH SARS-CoV-2, RNA, NAAT NEGATIVE Blood Type Antibody Screen Crossmatch 05/04/21 05/04/21 05/04/21 05:16 05:16 07:14 WBC RBC Hgb Hct MCV MCH MCHC RDW Std Deviation RDW Coeff of Mychal Plt Count MPV Immature Gran % (Auto) Neut % (Auto) Lymph % (Auto) [place] % (Auto) Eos % (Auto) Baso % (Auto) Neut # (Auto) Lymph # (Auto) [place] # (Auto) Eos # (Auto) Baso # (Auto) Immature Gran # (Auto) PT INR APTT 22.7 PTT Ratio 0.9 Sodium 140 Potassium 3.2 L Chloride 107 Carbon Dioxide 28 Anion Gap 5.0 BUN 6 L Creatinine 0.61 Est Cr Clr Drug Dosing 182.4 Est GFR ( Amer) 125.8 Est GFR (Non-Af Amer) 108.5 BUN/Creatinine Ratio 9.9 L Glucose 110 H POC Glucose 111 H Lactate Calcium 7.7 L Magnesium Total Bilirubin AST ALT Alkaline Phosphatase Troponin I Total Protein Albumin Globulin Albumin/Globulin Ratio TSH SARS-CoV-2, RNA, NAAT Blood Type Antibody Screen Crossmatch Medications Administered Current Inpatient Medications Acetaminophen (Acetaminophen 325 Mg Tab) 650 mg PO Q4H PRN PRN Reason: Pain or Fever Stop: 06/03/21 01:26 Atorvastatin Calcium (Atorvastatin 40 Mg Tab) 40 mg PO DAILY BRITTANI Stop: 06/03/21 08:59 Last Admin: 05/04/21 08:31 Dose: 40 mg Documented by: Budesonide (Budesonide Ec 3 Mg Cap) 9 mg PO DAILY BRITTANI Stop: 06/03/21 08:59 Last Admin: 05/04/21 08:32 Dose: 9 mg Documented by: Dextrose (Dextrose 50% 50 Ml Syringe) 25 - 50 ml IV UD PRN; Protocol PRN Reason: Hypoglycemia Protocol Stop: 06/03/21 01:26 Glucagon (Glucagon For Inj 1 Mg Vial) 1 mg SQ UD PRN; Protocol PRN Reason: Hypoglycemia Protocol Stop: 06/03/21 01:26 Glucose (Glucose 10 Tabs/Tube) 4 - 8 tabs PO UD PRN; Protocol PRN Reason: Hypoglycemia Protocol Stop: 06/03/21 01:26 Glucose (Glucose 40% Gel 15 Gm Tube) 15 - 30 gm PO UD PRN; Protocol PRN Reason: Hypoglycemia Protocol Stop: 06/03/21 01:26 Promethazine HCl 12.5 mg/ (Sodium Chloride) 50.5 mls @ 202 mls/hr IV Q6H PRN PRN Reason: Nausea And Vomiting Stop: 06/03/21 01:26 Insulin Aspart (Insulin Aspart 100 Units/Ml 3 Ml Pen) 0 units SC ACHS BRITTANI Stop: 06/03/21 01:59 Last Admin: 05/04/21 07:46 Dose: Not Given Documented by: Lisinopril (Lisinopril 2.5 Mg Tab) 2.5 mg PO DAILY BRITTANI Stop: 06/03/21 08:59 Last Admin: 05/04/21 08:32 Dose: 2.5 mg Documented by: Miscellaneous (Carbohydrates For Hypoglycemia ) 15 - 30 gm PO UD PRN PRN Reason: Hypoglycemia Protocol Stop: 06/03/21 01:26 Multivitamins (Multivitamin Tab) 1 tab PO DAILY BRITTANI Stop: 06/03/21 08:59 Last Admin: 05/04/21 08:33 Dose: 1 tab Documented by: Potassium Chloride (Potassium Chloride Crtab 20 Meq Tabcr) 20 meq PO BID BRITTANI Stop: 06/03/21 08:59 Last Admin: 05/04/21 08:33 Dose: 20 meq Documented by: Sotalol HCl (Sotalol Hcl 80 Mg Tab) 80 mg PO BID BRITTANI Stop: 06/03/21 01:59 Last Admin: 05/04/21 08:33 Dose: 80 mg Documented by: Tramadol HCl (Tramadol Hcl 50 Mg Tablet) 25 - 50 mg PO Q4H PRN PRN Reason: Pain Stop: 06/03/21 01:26 (1) Anemia Anemia type: other cause Other causes of anemia: other cause, not classified Qualified Code(s): D64.89 - Other specified anemias (2) Diarrhea Diarrhea type: unspecified type Qualified Code(s): R19.7 - Diarrhea, unspecified (3) Fluid overload Hypervolemia type: unspecified Qualified Code(s): E87.70 - Fluid overload, unspecified
--- NOTE | 2021-05-04 09:14 | Gastrointestinal Consultation ---
Date of Consultation May 04, 2021 Supervising Physician Co-Signing Physician Notes I was unable to document in A&P as another user had this functionality occupied. 61 year old male with admitted for fluid overload, recently diagnsoed colitis on budesonide clinically doing well from GI standpoint and notes passing semi- formed brown stools 2-4 times daily with aboud evidence of black/blood stools. Denies abd pain. Consult was for GI bleed however no documentation in the medical record and unable to confirm this with patient. He denies rectal bleeding. Would continue conservative measurement at this time. Trend HGB. Monitor output. transfuse PRN if evidence of severe bleeding. Would continue current therapy. Please recall GI as needed.Thank you for allowing us to participate in the care of this patient. Please call with any acute changes, questions or concerns. Please see addendum below with additional recommendation from my supervising physician. ADINA Mueller I have seen and examined the patient with ADINA Mueller whose note reflects our findings and plan with additional info as noted below. Patient hospitalized in late Mar and at that time noted to have diarrhea and colonoscopy with bx showing mild chronic active colitis. He was started on mesalamine. Did not feel good on this and budesonide was resumed 9mg daily with plan to taper. He was seen in follow up in the GI clinic in April and had a repeat EGD and colonoscopy 04/23 for on-going symptoms. Significant for mild- moderate logan-colitis. Budesonide continued as patient did not tolerate the meslamine. Bx again confirm chronic active colitis. Patient now admitted with volume overload and anasarca. He reports 2-4 semi-formed loose at times stools daily. No recent blood. He was supposed to see Melba in the Gi clinic this coming week to discuss starting biologic. Some of his fluid retention may certainly be related to IBD, but scope findings and path not severe. OK to start on IV steroids provided repeat stool testing is negative for infection. paperwork in process for Remicade as an outpatient. No role for repeat an EGD and colonoscopy as these were BOTH just done again on 04/23. History of Present Illness Reason for Consultation: rectal bleeding Requesting Physician: Terri Attending Physician: Jake Murray MD History of Present Illness 61 year old male with history of CAD s/p stent, atrial flutter on chronic a nticoagulation with Coumadin, HTN, HLDadmitted from OP cardiology for concern for decompensated heart failure. GI was asked to evaluate for GI bleed. Pt was seen and evaluated, chart reviewed. Denies abd pain. No nausea, vomiting. Moving bowels 2-4 times daily. Stools are semi-formed. No visible blood per patient. No fever, chills, CP, SOB. Was on mesalamine - caused some side effects and switched to budesonide. Neg stool for c.diff CTAP 2020: Wall thickening and vascular prominence of the transverse colon and hepatic flexure may reflect infectious/inflammatory colitis. Otherwise no acute abnormalities. Flex Sig 2020: No evidence of active GI bleeding, stool is green. - Diffuse mild inflammation was found in the entire examined colon secondary to nonspecific colitis. Biopsied. - Non-bleeding internal hemorrhoids. Allergies Allergy/AdvReac Type Severity Reaction Status Date / Time gabapentin Allergy Mild Emotional Verified 04/24/21 16:00 changes (makes cry) Sulfa (Sulfonamide Allergy Mild Rash Verified 04/24/21 16:00 Antibiotics) cyclobenzaprine Allergy Unknown ON [facility] MED Verified 04/24/21 16:00 LIST mesalamine AdvReac Mild dizziness Verified 05/04/21 03:05 Home Medications Medication Instructions Recorded Confirmed Type cholecalciferol (vitamin D3) 25 1,000 unit PO DAILY 07/20/18 05/03/21 History mcg (1,000 unit) capsule (Vitamin D3) metformin 1,000 mg tablet 1,000 mg PO BID 07/20/18 05/03/21 History multivitamin 1 tab PO DAILY 07/20/18 05/03/21 History zinc 50 mg tablet 50 mg PO DAILY 07/20/18 05/03/21 History atorvastatin 40 mg tablet (Lipitor) 40 mg PO DAILY 02/29/20 05/03/21 History sotalol 80 mg tablet 80 mg PO BID 02/29/20 05/03/21 History dulaglutide 1.5 mg/0.5 mL 1.5 mg SUBCUT WK 09/19/20 05/03/21 History subcutaneous pen injector (Trulicity) magnesium chloride 64 mg 64 mg PO BID #60 tab 04/09/21 05/03/21 Rx (magnesium chloride) tablet,delayed release (Mag 64) furosemide 20 mg tablet 10 mg PO BID 04/24/21 05/03/21 History loperamide 2 mg capsule 4 mg PO DIRECTED PRN MDD 8 04/24/21 05/03/21 History TABS/24 HOURS albuterol sulfate 90 mcg/actuation 1 inh INHALATION UD 05/03/21 05/03/21 History aerosol inhaler (Ventolin HFA) budesonide 9 mg tablet,delayed and 9 mg PO DAILY 05/03/21 05/03/21 History extended release lisinopril 10 mg tablet 10 mg PO DAILY 05/03/21 05/03/21 History Patient History Medical History (Updated 05/04/21 @ 10:05 by Niya Tang PA-C) Acute GI bleeding Anemia Diabetes mellitus, type 2 NIDDM (oral + injectable) DVT (deep venous thrombosis) HTN (hypertension) Hypokalemia Obesity Prolonged QT interval Restless leg syndrome Secondary polycythemia Supratherapeutic INR Surgical History H/O eye surgery Plugs implanted R/L eye for dry eye syndrome History of cardioversion x2 History of colonoscopy History of heart artery stent RCA (2003), Left circumflex (2004) History of tonsillectomy History of tooth extraction Family History Father Coronary heart disease Hypertension Mother Family history of diabetes mellitus Coronary heart disease Brother Diabetes Family history of diabetes mellitus Brother Family history of diabetes mellitus Other No family history of adverse response to anesthesia No known problems Social History Smoking Status: Unknown if ever smoked Tobacco Type: Cigarettes Second Hand Exposure: No; Hx Alcohol Use: Yes Alcohol type: hard liquor Alcohol type Comment: 3-4 shots 4 days a week Hx Substance Use: No Preferred Language: [place]ese Communication Ability: Effective Manager Rehab Required: No Beliefs That Will Affect Care: None marital status: Current Living Situation: Spouse current occupational status: employed Feels Safe at Home: Yes Assistive Devices: None Review of Systems Review of Systems: All systems reviewed & are unremarkable except as noted in HPI & below Physical Exam Constitutional: WD/WN, vitals as above Neck: trachea midline, no thyromegaly Respiratory: normal respiratory effort, lungs clear to auscultation Cardiovascular: RRR, no murmur, no edema Skin: +3 pitting edema Results & Data ([facility]) Vital Signs (Past 12 Hours) Vital Signs Temp Pulse Pulse Resp BP BP Pulse Ox 05/04/21 07:27 37.1 C 81 16 102/57 L 93 05/04/21 06:00 68 20 97/58 L 96 05/04/21 04:10 90 20 118/78 96 05/04/21 01:47 95 H 21 106/77 94 05/04/21 01:38 95 H 16 129/89 05/04/21 01:01 109 H 16 101/60 96 05/04/21 00:29 96 H 16 98/68 L 99 05/03/21 23:15 36.7 C 92 H 19 116/76 97 05/03/21 23:01 54 L 16 118/72 96 05/03/21 22:45 36.8 C 92 H 18 123/75 95 05/03/21 22:15 36.8 C 87 18 105/76 96 05/03/21 21:45 36.7 C 89 20 123/88 99 05/03/21 21:30 36.8 C 95 H 18 124/75 98 05/03/21 21:15 36.6 C 92 H 16 109/60 97 Pulse Ox 05/04/21 07:27 05/04/21 06:00 05/04/21 04:10 05/04/21 01:47 05/04/21 01:38 95 05/04/21 01:01 05/04/21 00:29 05/03/21 23:15 05/03/21 23:01 05/03/21 22:45 05/03/21 22:15 05/03/21 21:45 05/03/21 21:30 05/03/21 21:15 Laboratory Results 05/04/21 05/04/21 05/04/21 Range/Units 07:14 05:16 05:16 WBC (4.8-10.8) K/uL RBC (4.7-6.1) M/uL Hgb (14.0-18.0) g/dL Hct (42-52) % MCV (80-100) fL MCH (25-34) pg MCHC (32-36) g/dL RDW Std Deviation (36.4-46.3) fL RDW Coeff of Mychal (11.5-14.5) % Plt Count (130-400) K/uL MPV (7.4-10.4) fL Immature Gran % (Auto) % Neut % (Auto) % Lymph % (Auto) % Henry % (Auto) % Eos % (Auto) % Baso % (Auto) % Neut # (Auto) (1.4-6.5) K/uL Lymph # (Auto) (1.2-3.4) K/uL Henry # (Auto) (0.11-0.59) K/uL Eos # (Auto) (0-0.5) K/uL Baso # (Auto) (0-0.2) K/uL Immature Gran # (Auto) (0.00-0.02) K/uL PT (9.0-12.0) Seconds INR (0.9-1.1) APTT 22.7 (21.0-31.0) Seconds PTT Ratio 0.9 Sodium 140 (136-145) mmol/L Potassium 3.2 L (3.5-5.1) mmol/L Chloride 107 (98-107) mmol/L Carbon Dioxide 28 (21-32) mmol/L Anion Gap 5.0 (3-11) BUN 6 L (7-18) mg/dl Creatinine 0.61 (0.6-1.4) mg/dl Est Cr Clr Drug Dosing 182.4 Est GFR ( Amer) 125.8 ml/min Est GFR (Non-Af Amer) 108.5 ml/min BUN/Creatinine Ratio 9.9 L (10-20) Glucose 110 H (70-99) mg/dl POC Glucose 111 H (70-99) mg/dl Lactate (0.4-2.0) mmol/L Calcium 7.7 L (8.5-10.1) mg/dl Magnesium (1.8-2.4) mg/dl Total Bilirubin (0.2-1) mg/dl AST (15-37) U/L ALT (12-78) U/L Alkaline Phosphatase (45-117) U/L Troponin I (0-0.045) ng/ml Total Protein (6.4-8.2) gm/dl Albumin (3.4-5.0) gm/dl Globulin (2.5-4.0) gm/dl Albumin/Globulin Ratio (0.9-2) TSH (0.300-4.500) uIu/ml SARS-CoV-2, RNA, NAAT (NEGATIVE) Blood Type Antibody Screen Crossmatch 05/04/21 05/04/21 05/03/21 Range/Units 05:16 01:36 22:35 WBC 11.78 H (4.8-10.8) K/uL RBC 2.88 L (4.7-6.1) M/uL Hgb 8.5 L (14.0-18.0) g/dL Hct 26.8 L (42-52) % MCV 93.1 (80-100) fL MCH 29.5 (25-34) pg MCHC 31.7 L (32-36) g/dL RDW Std Deviation 58.7 H (36.4-46.3) fL RDW Coeff of Mychal 17.3 H (11.5-14.5) % Plt Count 444 H (130-400) K/uL MPV 10.3 (7.4-10.4) fL Immature Gran % (Auto) 0.3 % Neut % (Auto) 71.3 % Lymph % (Auto) 13.8 % Henry % (Auto) 10.1 % Eos % (Auto) 3.8 % Baso % (Auto) 0.7 % Neut # (Auto) 8.41 H (1.4-6.5) K/uL Lymph # (Auto) 1.62 (1.2-3.4) K/uL Henry # (Auto) 1.19 H (0.11-0.59) K/uL Eos # (Auto) 0.45 (0-0.5) K/uL Baso # (Auto) 0.08 (0-0.2) K/uL Immature Gran # (Auto) 0.03 H (0.00-0.02) K/uL PT (9.0-12.0) Seconds INR (0.9-1.1) APTT (21.0-31.0) Seconds PTT Ratio Sodium (136-145) mmol/L Potassium (3.5-5.1) mmol/L Chloride (98-107) mmol/L Carbon Dioxide (21-32) mmol/L Anion Gap (3-11) BUN (7-18) mg/dl Creatinine (0.6-1.4) mg/dl Est Cr Clr Drug Dosing Est GFR ( Amer) ml/min Est GFR (Non-Af Amer) ml/min BUN/Creatinine Ratio (10-20) Glucose (70-99) mg/dl POC Glucose 96 (70-99) mg/dl Lactate (0.4-2.0) mmol/L Calcium (8.5-10.1) mg/dl Magnesium (1.8-2.4) mg/dl Total Bilirubin (0.2-1) mg/dl AST (15-37) U/L ALT (12-78) U/L Alkaline Phosphatase (45-117) U/L Troponin I (0-0.045) ng/ml Total Protein (6.4-8.2) gm/dl Albumin (3.4-5.0) gm/dl Globulin (2.5-4.0) gm/dl Albumin/Globulin Ratio (0.9-2) TSH (0.300-4.500) uIu/ml SARS-CoV-2, RNA, NAAT NEGATIVE (NEGATIVE) Blood Type Antibody Screen Crossmatch 05/03/21 05/03/21 05/03/21 Range/Units 21:11 14:30 14:30 WBC (4.8-10.8) K/uL RBC (4.7-6.1) M/uL Hgb (14.0-18.0) g/dL Hct (42-52) % MCV (80-100) fL MCH (25-34) pg MCHC (32-36) g/dL RDW Std Deviation (36.4-46.3) fL RDW Coeff of Mychal (11.5-14.5) % Plt Count (130-400) K/uL MPV (7.4-10.4) fL Immature Gran % (Auto) % Neut % (Auto) % Lymph % (Auto) % Henry % (Auto) % Eos % (Auto) % Baso % (Auto) % Neut # (Auto) (1.4-6.5) K/uL Lymph # (Auto) (1.2-3.4) K/uL Henry # (Auto) (0.11-0.59) K/uL Eos # (Auto) (0-0.5) K/uL Baso # (Auto) (0-0.2) K/uL Immature Gran # (Auto) (0.00-0.02) K/uL PT (9.0-12.0) Seconds INR (0.9-1.1) APTT (21.0-31.0) Seconds PTT Ratio Sodium 139 (136-145) mmol/L Potassium 3.0 L (3.5-5.1) mmol/L Chloride 106 (98-107) mmol/L Carbon Dioxide 28 (21-32) mmol/L Anion Gap 5.0 (3-11) BUN 6 L (7-18) mg/dl Creatinine 0.74 (0.6-1.4) mg/dl Est Cr Clr Drug Dosing Not Reportable Est GFR ( Amer) 116.2 ml/min Est GFR (Non-Af Amer) 100.3 ml/min BUN/Creatinine Ratio 8.1 L (10-20) Glucose 153 H (70-99) mg/dl POC Glucose (70-99) mg/dl Lactate 1.6 (0.4-2.0) mmol/L Calcium 7.9 L (8.5-10.1) mg/dl Magnesium 1.8 (1.8-2.4) mg/dl Total Bilirubin 0.2 (0.2-1) mg/dl AST 9 L (15-37) U/L ALT 20 (12-78) U/L Alkaline Phosphatase 91 (45-117) U/L Troponin I < 0.015 (0-0.045) ng/ml Total Protein 6.0 L (6.4-8.2) gm/dl Albumin 1.8 L (3.4-5.0) gm/dl Globulin 4.2 H (2.5-4.0) gm/dl Albumin/Globulin Ratio 0.4 L (0.9-2) TSH 2.860 (0.300-4.500) uIu/ml SARS-CoV-2, RNA, NAAT (NEGATIVE) Blood Type Antibody Screen Crossmatch 05/03/21 05/03/21 05/03/21 Range/Units 14:30 14:30 14:30 WBC 10.67 (4.8-10.8) K/uL RBC 2.46 L (4.7-6.1) M/uL Hgb 7.5 L (14.0-18.0) g/dL Hct 23.4 L (42-52) % MCV 95.1 (80-100) fL MCH 30.5 (25-34) pg MCHC 32.1 (32-36) g/dL RDW Std Deviation 57.3 H (36.4-46.3) fL RDW Coeff of Mychal 16.5 H (11.5-14.5) % Plt Count 473 H (130-400) K/uL MPV 9.9 (7.4-10.4) fL Immature Gran % (Auto) % Neut % (Auto) % Lymph % (Auto) % Henry % (Auto) % Eos % (Auto) % Baso % (Auto) % Neut # (Auto) (1.4-6.5) K/uL Lymph # (Auto) (1.2-3.4) K/uL Henry # (Auto) (0.11-0.59) K/uL Eos # (Auto) (0-0.5) K/uL Baso # (Auto) (0-0.2) K/uL Immature Gran # (Auto) (0.00-0.02) K/uL PT 10.2 (9.0-12.0) Seconds INR 1.0 (0.9-1.1) APTT 21.3 (21.0-31.0) Seconds PTT Ratio 0.8 Sodium (136-145) mmol/L Potassium (3.5-5.1) mmol/L Chloride (98-107) mmol/L Carbon Dioxide (21-32) mmol/L Anion Gap (3-11) BUN (7-18) mg/dl Creatinine (0.6-1.4) mg/dl Est Cr Clr Drug Dosing Est GFR ( Amer) ml/min Est GFR (Non-Af Amer) ml/min BUN/Creatinine Ratio (10-20) Glucose (70-99) mg/dl POC Glucose (70-99) mg/dl Lactate (0.4-2.0) mmol/L Calcium (8.5-10.1) mg/dl Magnesium (1.8-2.4) mg/dl Total Bilirubin (0.2-1) mg/dl AST (15-37) U/L ALT (12-78) U/L Alkaline Phosphatase (45-117) U/L Troponin I (0-0.045) ng/ml Total Protein (6.4-8.2) gm/dl Albumin (3.4-5.0) gm/dl Globulin (2.5-4.0) gm/dl Albumin/Globulin Ratio (0.9-2) TSH (0.300-4.500) uIu/ml SARS-CoV-2, RNA, NAAT (NEGATIVE) Blood Type A Positive Antibody Screen NEGATIVE Crossmatch See Detail
--- NOTE | 2021-05-04 10:06 | Consultation ---
Date of Consultation May 04, 2021 Assessment & Plan (1) DVT (deep venous thrombosis): Pt with acute LLE DVT and GI bleeding. Pt discussed with Dr López, who recommends pt undergo IVC filter insertion today in OR. Procedure, risks, benefits and alternatives were discussed with pt by myself at Dr López's request. Pt is agreeable. Patient was seen, examined, and chart reviewed. Agree with exam and treatment plan of the Vascular PA. History of Present Illness Reason for Consultation: DVT/GI bleeding Attending Physician: Jake Murray MD History of Present Illness 61 yo m with hx of PAF, DMII, HTN, CHF, CAD, admitted with anemia, GI bleeding, and LLE DVT, seen in consultation today for eval for possible IVC filter insertion. Pt states no hx of DVT in past. Was on AC for PAF until admission for GI bleeding a few weeks ago, when AC was stopped. Developed severely worse edema of BLE and general malaise, so came to [facility] ED and was noted to have LLE DVT and gross hematochezia. Pt admits fatigue and general weakness to BLE if he tries to ambulate, as well as HERRERA. Pt denies BALLARD, dizziness, chest pain, SOB at rest, fever, abd pain, N/V, rest pain, claudication, other complaints. BLE venous US demonstrates LLE DVT. Allergies Allergy/AdvReac Type Severity Reaction Status Date / Time gabapentin Allergy Mild Emotional Verified 04/24/21 16:00 changes (makes cry) Sulfa (Sulfonamide Allergy Mild Rash Verified 04/24/21 16:00 Antibiotics) cyclobenzaprine Allergy Unknown ON [facility] MED Verified 04/24/21 16:00 LIST mesalamine AdvReac Mild dizziness Verified 05/04/21 03:05 Home Medications Medication Instructions Recorded Confirmed Type cholecalciferol (vitamin D3) 25 1,000 unit PO DAILY 07/20/18 05/03/21 History mcg (1,000 unit) capsule (Vitamin D3) metformin 1,000 mg tablet 1,000 mg PO BID 07/20/18 05/03/21 History multivitamin 1 tab PO DAILY 07/20/18 05/03/21 History zinc 50 mg tablet 50 mg PO DAILY 07/20/18 05/03/21 History atorvastatin 40 mg tablet (Lipitor) 40 mg PO DAILY 02/29/20 05/03/21 History sotalol 80 mg tablet 80 mg PO BID 02/29/20 05/03/21 History dulaglutide 1.5 mg/0.5 mL 1.5 mg SUBCUT WK 09/19/20 05/03/21 History subcutaneous pen injector (Trulicity) magnesium chloride 64 mg 64 mg PO BID #60 tab 04/09/21 05/03/21 Rx (magnesium chloride) tablet,delayed release (Mag 64) furosemide 20 mg tablet 10 mg PO BID 04/24/21 05/03/21 History loperamide 2 mg capsule 4 mg PO DIRECTED PRN MDD 8 04/24/21 05/03/21 History TABS/24 HOURS albuterol sulfate 90 mcg/actuation 1 inh INHALATION UD 05/03/21 05/03/21 History aerosol inhaler (Ventolin HFA) budesonide 9 mg tablet,delayed and 9 mg PO DAILY 05/03/21 05/03/21 History extended release lisinopril 10 mg tablet 10 mg PO DAILY 05/03/21 05/03/21 History Patient History Medical History (Updated 05/04/21 @ 10:05 by Niya Tang PA-C) Acute GI bleeding Anemia Diabetes mellitus, type 2 NIDDM (oral + injectable) DVT (deep venous thrombosis) HTN (hypertension) Hypokalemia Obesity Prolonged QT interval Restless leg syndrome Secondary polycythemia Supratherapeutic INR Surgical History H/O eye surgery Plugs implanted R/L eye for dry eye syndrome History of cardioversion x2 History of colonoscopy History of heart artery stent RCA (2003), Left circumflex (2004) History of tonsillectomy History of tooth extraction Family History Father Coronary heart disease Hypertension Mother Family history of diabetes mellitus Coronary heart disease Brother Diabetes Family history of diabetes mellitus Brother Family history of diabetes mellitus Other No family history of adverse response to anesthesia No known problems Social History Smoking Status: Unknown if ever smoked Tobacco Type: Cigarettes Second Hand Exposure: No; Hx Alcohol Use: Yes Alcohol type: hard liquor Alcohol type Comment: 3-4 shots 4 days a week Hx Substance Use: No Preferred Language: Taiwanese Communication Ability: Effective Facilities Assistant Required: No Beliefs That Will Affect Care: None marital status: Current Living Situation: Spouse current occupational status: employed Feels Safe at Home: Yes Assistive Devices: None Review of Systems Review of Systems: All systems reviewed & are unremarkable except as noted in HPI & below Physical Exam Constitutional: WD/WN, vitals as above healthy appearing, + disheveled, cooperative and comfortable; not in distress ENMT: Ears: no hearing impairment Neck: trachea midline Respiratory: normal respiratory effort, lungs clear to auscultation Auscultation: + diminished lung sounds Cardiovascular: Rate/Rhythm: regular rate and regular rhythm Vessels: femoral pulses present, posterior tibial pulses present, dorsalis pedis pulses present and radial pulses present; + abnormal peripheral pulses Extremities: normal capillary refill, + pedal edema and + edema Gastrointestinal (Abdomen): Inspection/Auscultation: abdomen normal to inspection and normal bowel sounds Percussion/Palpation: abdomen soft; abdomen nontender Musculoskeletal: no cyanosis or clubbing, extremities motor strength 5/5 Skin: no rashes, warm and dry Neurologic: moves all extremities; no focal motor deficits and not confused Psychiatric: A+Ox3, euthymic affect Results & Data ([facility]) Vital Signs (Past 12 Hours) Vital Signs Temp Pulse Pulse Resp BP BP Pulse Ox 05/04/21 07:27 37.1 C 81 16 102/57 L 93 05/04/21 06:00 68 20 97/58 L 96 05/04/21 04:10 90 20 118/78 96 05/04/21 01:47 95 H 21 106/77 94 05/04/21 01:38 95 H 16 129/89 05/04/21 01:01 109 H 16 101/60 96 05/04/21 00:29 96 H 16 98/68 L 99 05/03/21 23:15 36.7 C 92 H 19 116/76 97 05/03/21 23:01 54 L 16 118/72 96 05/03/21 22:45 36.8 C 92 H 18 123/75 95 05/03/21 22:15 36.8 C 87 18 105/76 96 Pulse Ox 05/04/21 07:27 05/04/21 06:00 05/04/21 04:10 12/03/21 01:47 05/04/21 01:38 95 05/04/21 01:01 05/04/21 00:29 05/03/21 23:15 05/03/21 23:01 05/03/21 22:45 05/03/21 22:15
--- NOTE | 2021-05-04 10:26 | Electrocardiogram Report ---
Test Reason : Blood Pressure : / mmHG Vent. Rate : 088 BPM Atrial Rate : 088 BPM P-R Int : 172 ms QRS Dur : 094 ms QT Int : 402 ms P-R-T Axes : 057 026 073 degrees QTc Int : 486 ms Sinus rhythm with Premature supraventricular complexes Low voltage QRS Nonspecific T wave abnormality Prolonged QT Abnormal ECG When compared with ECG of 24-APR-2021 13:36, Premature supraventricular complexes are now Present Nonspecific T wave abnormality now evident in Lateral leads Confirmed by Ward Moreira ([id number]) on 05/04/2021 10:26:15 AM Referred By: Jenna Burgess Confirmed By:Rolando Moreira
[2021-05-04 12:21] LABS: Hematocrit (blood only) 26.2 % (42-52); Hemoglobin 8.4 g/dL (14.0-18.0)
[2021-05-04] MEDS ORDERED: MIDAZOLAM HCL 1 MG/ML 2ML VIAL ONE (12:48)
[2021-05-04] MEDS ORDERED: fentaNYL citrate 100 MCG/2 ML VIAL ONE (12:48)
--- NOTE | 2021-05-04 13:04 | Pre Anesthesia Assessment ---
Date of Service May 04, 2021 Pre Sedation Assessment Vital Signs Temp Pulse Pulse Resp BP BP Pulse Ox 05/04/21 12:53 36.4 C L 93 H 20 116/73 97 05/04/21 11:23 82 05/04/21 10:49 36.8 C 84 18 102/69 99 05/04/21 07:27 37.1 C 81 16 102/57 L 93 05/04/21 06:00 68 20 97/58 L 96 05/04/21 04:10 90 20 118/78 96 05/04/21 01:47 95 H 21 106/77 94 05/04/21 01:38 95 H 16 129/89 05/04/21 01:01 109 H 16 101/60 96 05/04/21 00:29 96 H 16 98/68 L 99 05/03/21 23:15 36.7 C 92 H 19 116/76 97 05/03/21 23:01 54 L 16 118/72 96 05/03/21 22:45 36.8 C 92 H 18 123/75 95 05/03/21 22:15 36.8 C 87 18 105/76 96 05/03/21 21:45 36.7 C 89 20 123/88 99 05/03/21 21:30 36.8 C 95 H 18 124/75 98 05/03/21 21:15 36.6 C 92 H 16 109/60 97 Pulse Ox 05/04/21 12:53 05/04/21 11:23 05/04/21 10:49 05/04/21 07:27 05/04/21 06:00 05/04/21 04:10 05/04/21 01:47 05/04/21 01:38 95 05/04/21 01:01 05/04/21 00:29 05/03/21 23:15 05/03/21 23:01 05/03/21 22:45 05/03/21 22:15 05/03/21 21:45 05/03/21 21:30 05/03/21 21:15 Cardiovascular RRR, no murmur, no edema Respiratory normal respiratory effort, lungs clear to auscultation Pre-Sedation Airway Assessment Smoking Status: Unknown if ever smoked Hx Sleep Apnea: No Short, Thick Neck: No Thyromental Distance: > or= 3.5 Finger Breadths Oral Cavity: + Dental Abnormalities Mallampati Class: III ASA: ASA3 NPO Status Date of Last Intake of Fluids: 05/03/21 Time of Last Intake of Fluids: 23:00 Date of Last Intake of Solid Food: 05/03/21 Time of Last Intake of Solid Foods: 23:00 Procedure Planning Contraindications for Sedation: none Current Medications Reviewed: Yes Notes The planned sedation has been discussed with the patient. Informed Consent was obtained. I have identified the patient, determined the appropriateness of sedation and have assessed the patient immediately prior to the procedure. All medicine(s) and interventions are by my order.
[2021-05-04] MEDS ORDERED: LIDOCAINE 1% LOCAL 20 ML VIAL INJ ONE (13:35)
[2021-05-04] MEDS ORDERED: VISIPAQUE IV PRN (13:35)
--- NOTE | 2021-05-04 13:44 | Post Anesthesia Assessment ---
Date of Service May 04, 2021 Post Sedation Assessment Vital Signs Temp Pulse Pulse Resp BP BP Pulse Ox 05/04/21 13:42 87 18 119/72 97 05/04/21 13:37 87 18 102/72 100 05/04/21 13:32 84 18 121/75 100 05/04/21 13:27 87 18 124/81 100 05/04/21 13:17 82 18 123/88 100 05/04/21 12:53 36.4 C L 93 H 20 116/73 97 05/04/21 11:23 82 05/04/21 10:49 36.8 C 84 18 102/69 99 05/04/21 07:27 37.1 C 81 16 102/57 L 93 05/04/21 06:00 68 20 97/58 L 96 05/04/21 04:10 90 20 118/78 96 05/04/21 01:47 95 H 21 106/77 94 05/04/21 01:38 95 H 16 129/89 05/04/21 01:01 109 H 16 101/60 96 05/04/21 00:29 96 H 16 98/68 L 99 05/03/21 23:15 36.7 C 92 H 19 116/76 97 05/03/21 23:01 54 L 16 118/72 96 05/03/21 22:45 36.8 C 92 H 18 123/75 95 05/03/21 22:15 36.8 C 87 18 105/76 96 05/03/21 21:45 36.7 C 89 20 123/88 99 05/03/21 21:30 36.8 C 95 H 18 124/75 98 05/03/21 21:15 36.6 C 92 H 16 109/60 97 Pulse Ox 05/04/21 13:42 05/04/21 13:37 05/04/21 13:32 05/04/21 13:27 05/04/21 13:17 05/04/21 12:53 05/04/21 11:23 05/04/21 10:49 05/04/21 07:27 05/04/21 06:00 05/04/21 04:10 05/04/21 01:47 05/04/21 01:38 95 05/04/21 01:01 05/04/21 00:29 05/03/21 23:15 05/03/21 23:01 05/03/21 22:45 05/03/21 22:15 05/03/21 21:45 05/03/21 21:30 05/03/21 21:15 Recovery Score Activity: Moves 4 extremities Respiration: Deep Breath/Cough Circulation: +/-20% PreAnes Value Consciousness: Fully Awake Oxygen Saturation: > 92% On Room Air Post Anesthesia Score: 10 Discharge Sedation Level of Care: Fast Track Phase II Post Sedation Plan On clinical assessment, the patient appears to have tolerated the sedation without complications. Patient is recovering as anticipated. Patient will continue to be monitored by nursing and may be discharged when sedation discharge criteria are met per below protocol. Upon Completions of procedure up to 15 minutes continue every 5 minute vital signs and the P.A.R. score; then discharge to a Phase I or Fast Track to Phase II per the following guidelines: * Discharge Patient to appropriate Phase II area if PAR is 8 or greater or return to pre- procedure baseline. The post - procedure orders will be as directed. * If PAR score is less than 8 or not return to pre-procedure baseline then patient will follow Phase I monitoring till PAR is reached for Phase II. The Phase I may be done in procedure room or may call to secure a Phase I area. * If naloxone or flumazenil are used for reversal, hold in Phase I for continued monitoring from when last reversal dose was given for a minimum of 60 minutes or longer pending the nurse and/or physician discretion of patient condition before discharge to Phase II. Please call the Sedation Physician to re-evaluate and complete post-note for discharge to Phase II area. Do NOT discharge from procedure sedation or Phase 1 until post- sedation evaluation note is complete by procedure /sedation MD Sedation Discharge Instructions to be given to the patient at discharge to home.
--- NOTE | 2021-05-04 13:44 | Operative Report ---
Post Operative Report Pre & Post Diagnosis Operation Date: 05/04/21 15:55 <No data on this case meets the specified criteria> Operation Date: 05/04/21 19:15 Pre-Op Diagnosis: Deep Vein Thrombosis, Contraindication to Anticoagulation Post-Op Diagnosis: Deep Vein Thrombosis, Contraindication to Anticoagulation I identified the patient and participated in the time-out.: Yes Procedure Operation Date: 05/04/21 15:55 <No data on this case meets the specified criteria> Operation Date: 05/04/21 19:15 Actual Procedures p Insertion of Inferior Vena Cava Filter, Right Jugular Approach, Ultrasound Localization of Right Jugular Vein, Fluoroscopy for Positioning.Moderate Sedation [id number] (Right) - Camden López MD Surgeon Camden López MD Plastics Heat 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 Anticoagulation this point is contraindicated due to his GI bleeding. Insertion of vena cava filter was recommended. I have discussed the risks options and benefits of the procedure with the patient. The patient understands the risks options and benefits and agrees to the procedure. Description of Procedure The patient was brought to the angio suite and placed in the supine position. The patient was identified and a timeout performed. The right side of the neck was prepped and draped in the usual fashion. The right internal jugular vein was located with ultrasound. It was patent, compressed easily, and had no filling defects. The vein was then punctured under ultrasound visualization. A guidewire was then passed centrally into the inferior vena cava under fluoroscopic guidance. The puncture site was then dilated and the filter sheath inserted. It was passed to the infra renal vena cava. A venacavagram was done which showed no cava clot and an acceptable size. The renal veins were identified. The filter was then passed through the sheath and deployed in the infra renal vena cava in an upright position. Satisfied with the positioning of the filter, the sheath was removed. Pressure was applied to the puncture site. Adequate hemostasis was obtained and a sterile dressing was applied. The patient left the operation room in satisfactory condition and tolerated the procedure well. All needle and sponge counts were correct at the end of the procedure. I attest to the content of the Intraoperative Record and any orders documented therein. Any exceptions are noted below.
[2021-05-04] MEDS ORDERED: SODIUM CHLORIDE 0.9% 250 ML IV PRN (15:46)
[2021-05-04] MEDS: FUROSEMIDE 40 MG TAB PO SCH (17:02)
[2021-05-04 17:41] LABS: Adenovirus F 40/41 PCR Not Detected (NotDetected); Astrovirus PCR Not Detected (NotDetected); Campylobacter PCR Not Detected (NotDetected); Clostridium diff Toxin A/B PCR Not Detected (NotDetected); Cryptosporidium PCR Not Detected (NotDetected); Cyclospora cayetanensis PCR Not Detected (NotDetected); Entamoeba histolytica PCR Not Detected (NotDetected); Enteroaggregative E.coli(EAEC) Not Detected (NotDetected); Enteropathogenic E.coli (EPEC) Not Detected (NotDetected); Enterotoxigenic E.coli (ETEC) Not Detected (NotDetected); Giardia lamblia PCR Not Detected (NotDetected); Norovirus GI/GII PCR Not Detected (NotDetected); Plesiomonas shigelloides PCR Not Detected (NotDetected); Rotavirus A PCR Not Detected (NotDetected); Salmonella PCR Not Detected (NotDetected); Sapovirus PCR Not Detected (NotDetected); Shiga-like Toxin E.coli (STEC) Not Detected (NotDetected); Shigella/Enteroinvasive E.coli Not Detected (NotDetected); Vibrio cholerae PCR Not Detected (NotDetected); Vibrio species PCR Not Detected (NotDetected); Yersinia enterocolitica PCR Not Detected (NotDetected)
[2021-05-04] MEDS ORDERED: LAVAGE SOLUTION 4000ML PO SCH (18:00)
--- NOTE | 2021-05-04 18:04 | Hospitalist Progress Note ---
Date of Service May 04, 2021 Assessment & Plan (1) SOB (shortness of breath): Plan: Volume Overload Likely due to Hypoalbuminemia/Severe Protein Calorie Malnutrition, ? Diastolic heart failure --CXR:Interval development of mild interstitial pulmonary edema and small bilateral pleural effusions. Fluid restriction Monitor I/Os Director Quality Systems Consulted Continue diuretics Appreciate Cardiology Input Symptomatic blood loss anemia Lower GI bleeding likely IBD H/O Colitis on mesalamine Intolerant to Mesalamine Currently on Budesonide Monitor H&H and Transfuse PRBCs PRN And to be started on Remicade as outpatient Currently no plan for EGD colonoscopy as per GI Check Stool for C diff Acute left lower extremity DVT Venous Doppler: Thrombus identified within the left popliteal, posterior tibial, peroneal, and a superficial gastrocnemius vein. This is new from the prior study. S/P IVC filter Appreciate vascular surgery input Not a candidate for anticoagulation H/O recurrent GI bleeding Hypokalemia Replace electrolytes as needed HTN BP relatively low Lisinopril discontinued CAD S/P stent On beta-tao, statin H/O Atrial flutter S/P cardioversion off Coumadin secondary to recurrent GI bleed Continue sotalol Hyperlipidemia on statin DM II on oral medications Last HBA1C: 6.1 last April 2021 Continue Insulin therapy DVT Px: SCDs Re: Recurrent GI bleed Code Status Full code Disposition PT/OT prior to discharge Ms. Nessa Booker, contact #[phone]. Admission and Anticipated Discharge Date Admission Date: May 03, 2021 Subjective Patient is seen and examined at bedside Pt had IVC filter placed earlier today Had small BRBPR this afternoon States having significant LE edema Family at bedside Discussed with GI, Cardiology today Denies chest pain, dyspnea, abd pain Review of Systems Review of Systems: All systems reviewed & are unremarkable except as noted in Subjective Physical Exam Physical Exam: Physical Exam: Vitals signs as noted above General Appearance:Morbidly Obese, no apparent distress Head: normocephalic, Atraumatic Eyes: normal inspection, EOMI Neck: supple, Trachea midline Respiratory/Chest: Normal breath sounds, CTA Cardiovascular: S1, S2, No murmur Abdomen/GI:Soft, Non tender, Bowel sounds present Extremities/Musculoskeletal:normal inspection, +B/L LE edema , LLE erythema Neurologic/Psych:AAOX3, grossly no focal neurological deficits Skin: normal color, warm Results & Data Results & Data ([facility]) Vital Signs (Past 12 Hours) Vital Signs Temp Pulse Pulse Resp BP Pulse Ox 05/04/21 17:31 87 05/04/21 15:15 87 18 107/68 98 05/04/21 14:45 86 110/69 99 05/04/21 14:30 85 102/67 99 05/04/21 14:15 86 105/66 99 05/04/21 14:04 36.8 C 86 18 109/68 99 05/04/21 13:42 87 18 119/72 97 05/04/21 13:37 87 18 102/72 100 05/04/21 13:32 84 18 121/75 100 05/04/21 13:27 87 18 124/81 100 05/04/21 13:17 82 18 123/88 100 05/04/21 12:53 36.4 C L 93 H 20 116/73 97 05/04/21 11:23 82 05/04/21 10:49 36.8 C 84 18 102/69 99 05/04/21 07:27 37.1 C 81 16 102/57 L 93 05/04/21 06:00 68 20 97/58 L 96 Laboratory Results Short CBC 05/04/21 05/04/21 Range/Units 05:16 12:12 WBC 11.78 H (4.8-10.8) K/uL Hgb 8.5 L 8.4 L (14.0-18.0) g/dL Hct 26.8 L 26.2 L (42-52) % Plt Count 444 H (130-400) K/uL BMP 05/04/21 05:16 Sodium 140 Potassium 3.2 L Chloride 107 Carbon Dioxide 28 BUN 6 L Creatinine 0.61 Glucose 110 H Calcium 7.7 L Cardiac Enzymes 05/03/21 Range/Units 14:30 Troponin I < 0.015 (0-0.045) ng/ml
[2021-05-04] MEDS: MAGNESIUM CHLORIDE 64MG DELAYED REL TAB PO SCH (20:47)
[2021-05-04 21:03] LABS: Hematocrit (blood only) 26.4 % (42-52); Hemoglobin 8.4 g/dL (14.0-18.0)
[2021-05-05 06:45] LABS: Hematocrit (blood only) 26.1 % (42-52); Hemoglobin 8.3 g/dL (14.0-18.0); Mean Corpuscular Hemoglobin 29.5 pg (25-34); Mean Corpuscular Hgb Conc 31.8 g/dL (32-36); Mean Corpuscular Volume 92.9 fL (80-100); Platelet Count 415 K/uL (130-400); RDW Coefficient of Variation 17.2 % (11.5-14.5); RDW Standard Deviation 58.6 fL (36.4-46.3); Red Blood Count 2.81 M/uL (4.7-6.1); White Blood Count 9.19 K/uL (4.8-10.8)
[2021-05-05 07:18] LABS: BUN Creatinine Ratio 7.2 (10-20); Calcium 7.5 mg/dl (8.5-10.1); Creatinine Clr Calc Pharmacy 158.9 ml/min; Est GFR (African American) 120.3 ml/min; Est GFR (Non-African American) 103.8 ml/min; Magnesium 1.7 mg/dl (1.8-2.4); Potassium 3.1 mmol/L (3.5-5.1)
[2021-05-05] MEDS: MAGNESIUM CHLORIDE 64MG DELAYED REL TAB PO SCH ×2 (08:29→20:33)
[2021-05-05] MEDS: POTASSIUM CHLORIDE CRTAB 20 MEQ TABCR PO SCH ×2 (08:29→20:52)
[2021-05-05] MEDS: FUROSEMIDE 40 MG TAB PO SCH ×2 (08:29→17:07)
[2021-05-05] MEDS: ATORVASTATIN 40 MG TAB PO SCH (08:30)
[2021-05-05] MEDS: BUDESONIDE EC 3 MG CAP PO SCH (08:30)
[2021-05-05] MEDS: MULTIVITAMIN TAB PO SCH (08:30)
[2021-05-05] MEDS: INSULIN ASPART 100 UNITS/ML 3 ML PEN SC SCH ×4 (09:10→20:35)
[2021-05-05] MEDS: SOTALOL HCL 80 MG TAB PO SCH ×2 (09:28→20:33)
[2021-05-05] MEDS ORDERED: POTASSIUM CHLORIDE CRTAB 20 MEQ TABCR PO ONE (10:19)
--- NOTE | 2021-05-05 17:11 | Cardiology Progress Note ---
Date of Service May 05, 2021 Assessment & Plan (1) Hypoalbuminemia: (2) Diarrhea: (3) Anemia: (4) Fluid overload: (5) Colitis: Plan: Patient has a history of recurrent paroxysmal atrial fibrillation/flutter with multiple past cardioversions. He has been on sotalol since April,, and is in sinus rhythm at present. Anticoagulation on hold due to anemia, heme positive stool. He has undergone inferior vena cava filter this admission for DVT with contraindications to oral anticoagulation at present. His last echocardiogram indicated a low normal EF of around 45 to 50%. GI input noted and appreciated, at recent EGD and colonoscopy. Is now 1 IV hydrocortisone to see if this will help from a colitis standpoint. Continue IV furosemide. Proceed with trial of IV albumin. Admission and Anticipated Discharge Date Admission Date: May 03, 2021 Subjective Patient seen in follow-up, having previously been followed by Dr. Levine this hospital stay. Subjectively, patient states that his lower extremity edema has improved significantly and IV furosemide, he feels like his thighs are a lot less swollen, and has ongoing lower extremity edema. Hemoglobin a little bit better. Physical Exam Physical Exam: Temp Pulse Resp BP Pulse Ox 36.6 C 80 18 94/60 L 95 05/05/21 15:49 05/05/21 15:49 05/05/21 15:49 05/05/21 15:49 05/05/21 15:49 Constitutional: + ill appearing; no acute distress Cardiovascular: Rate/Rhythm: regular rate and regular rhythm Heart Sounds: no murmur Extremities: + edema (2+ lower extremity edema) Results & Data ([facility]) Vital Signs (Past 12 Hours) Vital Signs Temp Pulse Pulse Resp BP BP Pulse Ox 05/05/21 15:49 36.6 C 80 18 94/60 L 95 05/05/21 15:44 84 05/05/21 11:49 36.7 C 79 19 100/65 94 05/05/21 09:12 81 05/05/21 07:56 36.6 C 82 18 103/67 95 (1) Diarrhea Diarrhea type: unspecified type Qualified Code(s): R19.7 - Diarrhea, unspecified (2) Anemia Anemia type: other cause Other causes of anemia: other cause, not classified Qualified Code(s): D64.89 - Other specified anemias (3) Fluid overload Hypervolemia type: unspecified Qualified Code(s): E87.70 - Fluid overload, unspecified
[2021-05-05] MEDS: ALBUMIN 25% 100 mL 25 GM/100 ML VIAL IV SCH (17:56)
[2021-05-05] MEDS: HYDROCORTISONE SOD 100 MG in SYRINGE 0 ML IV SCH (17:56)
[2021-05-05 18:23] LABS: Hematocrit (blood only) 26.1 % (42-52); Hemoglobin 8.3 g/dL (14.0-18.0)
--- NOTE | 2021-05-05 19:58 | Hospitalist Progress Note ---
Date of Service May 05, 2021 Assessment & Plan (1) SOB (shortness of breath): Plan: Volume Overload Likely due to Hypoalbuminemia/Severe Protein Calorie Malnutrition, ? Diastolic heart failure --CXR:Interval development of mild interstitial pulmonary edema and small bilateral pleural effusions. Fluid restriction Monitor I/Os Care Program Resident Consulted Continue diuretics with Albumin Appreciate Cardiology Input Monitor volume status Symptomatic blood loss anemia Lower GI bleeding likely IBD H/O Colitis on mesalamine Intolerant to Mesalamine Was on Budesonide Monitor H&H and Transfuse PRBCs PRN And to be started on Remicade as outpatient Currently no plan for EGD colonoscopy as per GI Stool studies negative for infection Budesonide held Started on hydrocortisone as per GI Acute left lower extremity DVT Venous Doppler: Thrombus identified within the left popliteal, posterior tibial, peroneal, and a superficial gastrocnemius vein. This is new from the prior study. S/P IVC filter Appreciate vascular surgery input Not a candidate for anticoagulation H/O recurrent GI bleeding Hypokalemia Replace electrolytes as needed HTN BP relatively low Lisinopril discontinued CAD S/P stent On beta-tao, statin H/O Atrial flutter S/P cardioversion off Coumadin secondary to recurrent GI bleed Continue sotalol Hyperlipidemia on statin DM II on oral medications Last HBA1C: 6.1 last April 2021 Continue Insulin therapy DVT Px: SCDs Re: Recurrent GI bleed Code Status Full code Disposition PT/OT prior to discharge Ms. Nessa Booker, contact #[phone]. Admission and Anticipated Discharge Date Admission Date: May 03, 2021 Subjective Patient is seen and examined at bedside Denies any bleeding issues Leg erythema improved Still has significant lower extremity edema Discussed with GI, Cardiology today Denies chest pain, dyspnea, abd pain Review of Systems Review of Systems: All systems reviewed & are unremarkable except as noted in Subjective Physical Exam Physical Exam: Physical Exam: Vitals signs as noted above General Appearance:Morbidly Obese, no apparent distress Head: normocephalic, Atraumatic Eyes: normal inspection, EOMI Neck: supple, Trachea midline Respiratory/Chest: Normal breath sounds, CTA Cardiovascular: S1, S2, No murmur Abdomen/GI:Soft, Non tender, Bowel sounds present Extremities/Musculoskeletal:normal inspection, +B/L LE edema Neurologic/Psych:AAOX3, grossly no focal neurological deficits Skin: normal color, warm Results & Data Results & Data ([facility]) Vital Signs (Past 12 Hours) Vital Signs Temp Pulse Pulse Resp BP BP Pulse Ox 05/05/21 19:06 36.4 C L 79 18 108/73 96 05/05/21 15:49 36.6 C 80 18 94/60 L 95 05/05/21 15:44 84 05/05/21 11:49 36.7 C 79 19 100/65 94 05/05/21 09:12 81 05/05/21 07:56 36.6 C 82 18 103/67 95 Laboratory Results Short CBC 05/04/21 05/05/21 05/05/21 Range/Units 20:49 06:08 17:49 WBC 9.19 (4.8-10.8) K/uL Hgb 8.4 L 8.3 L 8.3 L (14.0-18.0) g/dL Hct 26.4 L 26.1 L 26.1 L (42-52) % Plt Count 415 H (130-400) K/uL BMP 05/05/21 06:08 Sodium 142 Potassium 3.1 L Chloride 107 Carbon Dioxide 29 BUN 5 L Creatinine 0.68 Glucose 111 H Calcium 7.5 L
[2021-05-06] MEDS: ALBUMIN 25% 100 mL 25 GM/100 ML VIAL IV SCH ×3 (03:43→17:04)
[2021-05-06] MEDS: HYDROCORTISONE SOD 100 MG in SYRINGE 0 ML IV SCH ×5 (03:44→23:03)
[2021-05-06 06:15] LABS: Hematocrit (blood only) 24.2 % (42-52); Hemoglobin 7.7 g/dL (14.0-18.0); Mean Corpuscular Hemoglobin 29.5 pg (25-34); Mean Corpuscular Hgb Conc 31.8 g/dL (32-36); Mean Corpuscular Volume 92.7 fL (80-100); Mean Platelet Volume 9.8 fL (7.4-10.4); Platelet Count 431 K/uL (130-400); RDW Coefficient of Variation 16.8 % (11.5-14.5); RDW Standard Deviation 56.8 fL (36.4-46.3); Red Blood Count 2.61 M/uL (4.7-6.1); White Blood Count 8.08 K/uL (4.8-10.8)
[2021-05-06 06:42] LABS: BUN Creatinine Ratio 6.8 (10-20); Calcium 7.9 mg/dl (8.5-10.1); Creatinine Clr Calc Pharmacy 158.8 ml/min; Est GFR (African American) 119.6 ml/min; Est GFR (Non-African American) 103.2 ml/min; Magnesium 1.9 mg/dl (1.8-2.4); Potassium 3.9 mmol/L (3.5-5.1)
[2021-05-06] MEDS: ATORVASTATIN 40 MG TAB PO SCH (08:37)
[2021-05-06] MEDS: FUROSEMIDE INJ 20 MG/2 ML VIAL IV SCH ×2 (08:37→17:05)
[2021-05-06] MEDS: MAGNESIUM CHLORIDE 64MG DELAYED REL TAB PO SCH ×2 (08:37→20:59)
[2021-05-06] MEDS: SOTALOL HCL 80 MG TAB PO SCH ×2 (08:38→20:59)
[2021-05-06] MEDS: POTASSIUM CHLORIDE CRTAB 20 MEQ TABCR PO SCH ×2 (08:38→20:59)
[2021-05-06] MEDS: MULTIVITAMIN TAB PO SCH (08:38)
[2021-05-06] MEDS: INSULIN ASPART 100 UNITS/ML 3 ML PEN SC SCH ×4 (08:41→22:13)
[2021-05-06] MEDS ORDERED: NURSING DECISION MEDICATION ONE (16:04)
[2021-05-06] MEDS ORDERED: COUGH DROP (SUGAR FREE) LOZ 24 LOZ/1 BOX BUCCAL ONE (16:05)
[2021-05-06] MEDS: COUGH DROP (SUGAR FREE) LOZ 24 LOZ/1 BOX BUCCAL PRN ×2 (16:19→19:45)
--- NOTE | 2021-05-06 16:30 | Cardiology Progress Note ---
Date of Service May 06, 2021 Assessment & Plan (1) Hypoalbuminemia: (2) Diarrhea: (3) Anemia: (4) Fluid overload: (5) Colitis: Plan: Patient has a history of recurrent paroxysmal atrial fibrillation/flutter with multiple past cardioversions. He has been on sotalol since April,, and is in sinus rhythm at present. Anticoagulation on hold due to anemia, heme positive stool. He has undergone inferior vena cava filter this admission for DVT with contraindications to oral anticoagulation at present. His last echocardiogram indicated a low normal EF of around 45 to 50%. Patient is on IV hydrocortisone for colitis. Continue IV furosemide and trial of IV albumin. Admission and Anticipated Discharge Date Admission Date: May 03, 2021 Subjective Patient seen in follow-up. He is in good spirits. Telemetry reveals sinus rhythm in the range of 80 to 90 bpm, with occasional PVCs. Physical Exam Physical Exam: Temp Pulse Resp BP Pulse Ox 36.6 C 91 H 16 109/73 95 05/06/21 15:16 05/06/21 15:57 05/06/21 15:16 05/06/21 15:16 05/06/21 15:16 Constitutional: + ill appearing; no acute distress Respiratory: normal respiratory effort, lungs clear to auscultation Cardiovascular: Rate/Rhythm: regular rate and regular rhythm Heart Sounds: no murmur Extremities: + edema (2+ lower extremity edema) Results & Data ([facility]) Vital Signs (Past 12 Hours) Vital Signs Temp Pulse Pulse Resp BP BP Pulse Ox 05/06/21 15:57 91 H 05/06/21 15:16 36.6 C 93 H 16 109/73 95 05/06/21 12:24 36.7 C 95 H 18 92/65 L 90 05/06/21 08:00 92 H 05/06/21 07:11 36.4 C L 83 20 104/71 91 Laboratory Results CBC 05/05/21 05/06/21 Range/Units 17:49 05:51 WBC 8.08 (4.8-10.8) K/uL RBC 2.61 L (4.7-6.1) M/uL Hgb 8.3 L 7.7 L (14.0-18.0) g/dL Hct 26.1 L 24.2 L (42-52) % Plt Count 431 H (130-400) K/uL Comprehensive Metabolic Panel 05/06/21 Range/Units 05:51 Sodium 137 (136-145) mmol/L Potassium 3.9 D (3.5-5.1) mmol/L Chloride 104 (98-107) mmol/L Carbon Dioxide 28 (21-32) mmol/L BUN 5 L (7-18) mg/dl Creatinine 0.69 (0.6-1.4) mg/dl Glucose 166 H (70-99) mg/dl Calcium 7.9 L (8.5-10.1) mg/dl Intake and Output 05/06/21 05/06/21 05/06/21 06:59 14:59 22:59 Intake Total 520 / 1760 100 / 600 500 / 600 Output Total 350 / 1751 425 / 425 Balance 170 / 9 100 / 175 75 / 175 Intake: IV 100 / 200 100 / 100 ALBUMIN 25% 100 mL 25 gm In 100 100 / 200 100 / 100 ml @ 50 mls/hr IV Q8H [facility] Rx#: [id number] Oral 420 / 1560 500 / 500 Output: Urine 350 / 1750 425 / 425 Other: Weight 130.2 kg Weight Measurement Method Built in [facility] (1) Diarrhea Diarrhea type: unspecified type Qualified Code(s): R19.7 - Diarrhea, unspecified (2) Anemia Anemia type: other cause Other causes of anemia: other cause, not classified Qualified Code(s): D64.89 - Other specified anemias (3) Fluid overload Hypervolemia type: unspecified Qualified Code(s): E87.70 - Fluid overload, unspecified
--- NOTE | 2021-05-06 18:22 | Hospitalist Progress Note ---
Date of Service May 06, 2021 Assessment & Plan (1) SOB (shortness of breath): Plan: Volume Overload Likely due to Hypoalbuminemia/Severe Protein Calorie Malnutrition, ? Diastolic heart failure --CXR:Interval development of mild interstitial pulmonary edema and small bilateral pleural effusions. Fluid restriction Monitor I/Os Bump Grader Operator Consulted Continue diuretics with Albumin Appreciate Cardiology Input Monitor volume status Edema slowly improving Symptomatic blood loss anemia Lower GI bleeding likely IBD H/O Colitis on mesalamine Intolerant to Mesalamine Was on Budesonide Monitor H&H and Transfuse PRBCs PRN And to be started on Remicade as outpatient Currently no plan for EGD colonoscopy as per GI Stool studies negative for infection Budesonide held Started on hydrocortisone as per GI Hemoglobin 7.7 Denies any acute bleeding issues today Acute left lower extremity DVT Venous Doppler: Thrombus identified within the left popliteal, posterior tibial, peroneal, and a superficial gastrocnemius vein. This is new from the prior study. S/P IVC filter Appreciate vascular surgery input Not a candidate for anticoagulation H/O recurrent GI bleeding Hypokalemia Replace electrolytes as needed HTN BP relatively low Lisinopril discontinued CAD S/P stent On beta-tao, statin H/O Atrial flutter S/P cardioversion off Coumadin secondary to recurrent GI bleed Continue sotalol Hyperlipidemia on statin DM II on oral medications Last HBA1C: 6.1 last April 2021 Continue Insulin therapy DVT Px: SCDs Re: Recurrent GI bleed Code Status Full code Disposition PT/OT prior to discharge Ms. Nessa Booker, contact #[phone]. Admission and Anticipated Discharge Date Admission Date: May 03, 2021 Subjective Patient is seen and examined at bedside States feeling better today Denies any bleeding issues Leg edema continues to improve Decreased leg pain No new complaints Denies chest pain, dyspnea, abd pain Review of Systems Review of Systems: All systems reviewed & are unremarkable except as noted in Subjective Physical Exam Physical Exam: Physical Exam: Vitals signs as noted above General Appearance:Morbidly Obese, no apparent distress Head: normocephalic, Atraumatic Eyes: normal inspection, EOMI Neck: supple, Trachea midline Respiratory/Chest: Normal breath sounds, CTA Cardiovascular: S1, S2, No murmur Abdomen/GI:Soft, Non tender, Bowel sounds present Extremities/Musculoskeletal:normal inspection, +B/L LE edema Neurologic/Psych:AAOX3, grossly no focal neurological deficits Skin: normal color, warm Results & Data Results & Data ([facility]) Vital Signs (Past 12 Hours) Vital Signs Temp Pulse Pulse Resp BP BP Pulse Ox 05/06/21 15:57 91 H 05/06/21 15:16 36.6 C 93 H 16 109/73 95 05/06/21 12:24 36.7 C 95 H 18 92/65 L 90 05/06/21 08:00 92 H 05/06/21 07:11 36.4 C L 83 20 104/71 91 Laboratory Results Short CBC 05/05/21 05/06/21 Range/Units 17:49 05:51 WBC 8.08 (4.8-10.8) K/uL Hgb 8.3 L 7.7 L (14.0-18.0) g/dL Hct 26.1 L 24.2 L (42-52) % Plt Count 431 H (130-400) K/uL BMP 05/06/21 05:51 Sodium 137 Potassium 3.9 D Chloride 104 Carbon Dioxide 28 BUN 5 L Creatinine 0.69 Glucose 166 H Calcium 7.9 L
[2021-05-06] MEDS ORDERED: NITROGLYCERIN SL 0.4 MG/TAB TAB SL STA (19:47)
[2021-05-06] MEDS ORDERED: LORazepam 0.25 MG/0.5 ML VIAL IV PRN (19:49)
[2021-05-06] MEDS ORDERED: guaiFENesin SUGAR FREE 200 MG/10 ML UDC PO STA (20:14)
[2021-05-06] MEDS ORDERED: MAGNESIUM SULFATE / D5W 1 GM/100 ML BAG IV ONE (20:15)
[2021-05-06 20:38] LABS: Hematocrit (blood only) 24.7 % (42-52); Hemoglobin 7.8 g/dL (14.0-18.0)
[2021-05-06 20:47] LABS: Partial Thromboplastin Ratio 0.8; Partial Thromboplastin Time 21.4 Seconds (21.0-31.0)
[2021-05-07] MEDS: ALBUMIN 25% 100 mL 25 GM/100 ML VIAL IV SCH ×2 (02:06→09:36)
[2021-05-07] MEDS ORDERED: OLANZapine 10 MG/2.1 ML SDV IM PRN (03:02)
[2021-05-07] MEDS: HYDROCORTISONE SOD 100 MG in SYRINGE 0 ML IV SCH ×5 (07:32→23:48)
--- NOTE | 2021-05-07 08:07 | CT Scan Report ---
CT OF THE HEAD WITHOUT CONTRAST CLINICAL HISTORY: Altered mental status. COMPARISON STUDY: Head CT January 11, 2019. CT DOSE: 614.27 mGy.cm TECHNIQUE: Helical axial images of the head were obtained without IV contrast. Automated exposure con trol was utilized for the study. A dose lowering technique was utilized adhering to the principles o f ALARA. FINDINGS: No acute intracranial hemorrhage, midline shift or mass effect is present. The ventricular system is unremarkable. The basal cisterns are patent. No extra-axial collections are present. There are no findings to suggest acute dural sinus thrombosis or acute territorial infarct. No significant calvarial abnormalities are present. Mild secretions and mucosal thickening within the left maxillary sinus are similar to CT of January 11, 2019. IMPRESSION: 1. No acute intracranial findings. No change in appearance of the brain. 2. Mild mucosal thickening and secretions within the left maxillary sinus, similar to prior CT. ACT 112: Negative or not required by law. Electronically signed by: Michael Barrera M.D. 05/07/2021 8:05 AM
[2021-05-07] MEDS ORDERED: FUROSEMIDE 40 MG/4 ML VIAL IV ONE ×3 (08:32→09:25)
[2021-05-07] MEDS ORDERED: LORazepam 2 MG/4 ML VIAL ONE (08:44)
[2021-05-07 08:59] LABS: Hematocrit (blood only) 30.1 % (42-52); Hemoglobin 9.4 g/dL (14.0-18.0)
--- NOTE | 2021-05-07 09:00 | Hospitalist Progress Note ---
Date of Service May 07, 2021 Assessment & Plan (1) SOB (shortness of breath): Plan: Acute respiratory failure with hypoxia Volume Overload Likely due to Hypoalbuminemia/Severe Protein Calorie Malnutrition, ? Diastolic heart failure --CXR:Interval development of mild interstitial pulmonary edema and small bilateral pleural effusions. Fluid restriction Monitor I/Os Extractor Operator Solvent Process Consulted Received Albumin, Lasix Appreciate Cardiology Input Monitor volume status Chest x-ray today showed moderate pulmonary edema Continue BiPAP for respiratory support Continue Lasix Monitor electrolytes and replace as needed Acute metabolic encephalopathy Likely secondary to hypoxia DD: Delirium Possible aspiration -CT Head:No acute intracranial findings. No change in appearance of the brain. Empirically started on Unasyn Reorient frequently to minimize delirium Symptomatic blood loss anemia Lower GI bleeding likely IBD H/O Colitis on mesalamine Intolerant to Mesalamine Was on Budesonide Monitor H&H and Transfuse PRBCs PRN And to be started on Remicade as outpatient Currently no plan for EGD colonoscopy as per GI Stool studies negative for infection Budesonide held Started on hydrocortisone continue PPI as per GI Hemoglobin 7.7> 9.4 Continue PPI No signs of acute GI bleed Acute left lower extremity DVT Venous Doppler: Thrombus identified within the left popliteal, posterior tibial, peroneal, and a superficial gastrocnemius vein. This is new from the prior study. S/P IVC filter Appreciate vascular surgery input Not a candidate for anticoagulation H/O recurrent GI bleeding Hypokalemia Replace electrolytes as needed HTN BP relatively low on presentation Lisinopril discontinued CAD S/P stent On beta-tao, statin H/O Atrial flutter S/P cardioversion off Coumadin secondary to recurrent GI bleed Continue sotalol Hyperlipidemia on statin DM II on oral medications Last HBA1C: 6.1 last April 2021 Continue Insulin therapy DVT Px: SCDs Re: Recurrent GI bleed Code Status Full code Disposition PT/OT prior to discharge Ms. Nessa Booker, contact #[phone]. Admission and Anticipated Discharge Date Admission Date: May 03, 2021 Subjective Patient is seen and examined at bedside Patient was thought to be confused overnight but was more oriented this morning He complained of severe respiratory distress this morning Also states having nausea Denies any chest pain, dizziness Code purple was called for respiratory distress Chest x-ray showed moderate pulmonary edema Patient was placed on BiPAP and Lasix was administered Patient was more comfortable while on BiPAP Review of Systems Review of Systems: All systems reviewed & are unremarkable except as noted in Subjective Physical Exam Physical Exam: Physical Exam: Vitals signs as noted above General Appearance:Morbidly Obese, no apparent distress Head: normocephalic, Atraumatic Eyes: normal inspection, EOMI Neck: supple, Trachea midline Respiratory/Chest: Normal breath sounds, B/L wheezing, Crackles Cardiovascular: S1, S2, No murmur Abdomen/GI:Soft, Non tender, Bowel sounds present Extremities/Musculoskeletal:normal inspection, +B/L LE edema Neurologic/Psych:AAOX3, grossly no focal neurological deficits Skin: normal color, warm Results & Data Results & Data ([facility]) Vital Signs (Past 12 Hours) Vital Signs Temp Pulse Pulse Resp BP Pulse Ox 05/07/21 08:55 104 H 22 97 05/07/21 07:52 36.6 C 86 18 117/80 94 05/06/21 23:01 36.3 C L 87 17 124/82 94 05/06/21 22:19 94 H
[2021-05-07 09:07] LABS: Base Excess VBG -2.1 mEq/L; HCO3 VBG 23 mmol/L; PCO2 VBG 38 mmHg (38-50); PO2 VBG 34 mmHg; pH VBG 7.39 (7.36-7.41)
[2021-05-07 09:08] LABS: Oxygen Saturation VBG < 60.0 %
--- NOTE | 2021-05-07 09:16 | XRay Report ---
XR chest 1V portable CLINICAL HISTORY: HYpoxia TECHNIQUE: Single frontal radiograph of the chest was obtained. Comparison: Comparison is made to chest one view 05/03/2021 FINDINGS: No lines and tubes are seen. Cardiomegaly is noted. There is prominence and cephalization of the vasc ulature with Jimi B lines seen. Airspace opacities seen in the bilateral lower lungs. No evidence o f pleural effusion or pneumothorax. IMPRESSION: 1. Moderate pulmonary edema. 2. Bilateral lower lobe alveolar airspace opacities may represent aspiration, atelectasis, pneumonia , and/or alveolar edema. 3. Stable cardiomegaly. ACT 112: Negative or not required by law. Electronically signed by: Horace Mcintyre M.D. 05/07/2021 9:15 AM
[2021-05-07 09:22] LABS: Appearance Urine Clear (Clear); Bilirubin Urine Negative (Negative); Blood Urine Negative (Negative); Color Urine Yellow; Epithelial Cell Urine Auto >30 /lpf (0-5); Glucose Urine UA 1+ (Negative); Ketones Urine 2+ (Negative); Leukocyte Esterase Urine Negative (Negative); Nitrite Urine Negative (Negative); Protein Urine 1+ (Negative); RBC Urine Automated 0-4 /hpf (0-4); Specific Gravity Urine 1.021 (1.000-1.030); Urobilinogen Urine Negative (Negative); pH Urine 5.5 (4.5-7.5)
[2021-05-07 09:23] LABS: Albumin Globulin Ratio 0.8 (0.9-2); Albumin Level 3.1 gm/dl (3.4-5.0); BUN Creatinine Ratio 6.7 (10-20); Bilirubin,Total 0.4 mg/dl (0.2-1); Calcium 8.6 mg/dl (8.5-10.1); Creatinine Clr Calc Pharmacy 130.4 ml/min; Est GFR (African American) 110.8 ml/min; Est GFR (Non-African American) 95.6 ml/min; Globulin 3.9 gm/dl (2.5-4.0); Potassium 4.6 mmol/L (3.5-5.1)
[2021-05-07] MEDS ORDERED: FUROSEMIDE INJ 20 MG/2 ML VIAL IV ONE (09:30)
[2021-05-07] MEDS: INSULIN ASPART 100 UNITS/ML 3 ML PEN SC SCH ×4 (09:34→20:29)
[2021-05-07 09:36] LABS: Base Excess ABG 0.6 mEq/L (-9-1.8); HCO3 ABG 25 mmol/L (19-24); Oxygen Saturation ABG 98.5 % (90-95); PCO2 ABG 37 mmHg (35-46); PO2 ABG 118 mmHg (80-95); pH ABG 7.45 (7.35-7.45)
[2021-05-07 09:38] LABS: Bacteria Urine Automated 1+ (Negative)
[2021-05-07 09:38] LABS: Allen Test Pos (Pos)
[2021-05-07 09:39] LABS: Sperm Urine Present (None Prsent)
--- NOTE | 2021-05-07 09:50 | Cardiology Progress Note ---
Date of Service May 07, 2021 Assessment & Plan (1) Hypoalbuminemia: (2) Diarrhea: (3) Anemia: (4) Fluid overload: (5) Colitis: (6) Pulmonary edema: Plan: Patient has a history of recurrent paroxysmal atrial fibrillation/flutter with multiple past cardioversions. He has been on sotalol since April,, and is in sinus rhythm at present. Anticoagulation on hold due to anemia, heme positive stool. He has undergone inferior vena cava filter this admission for DVT with contraindications to oral anticoagulation at present. His last echocardiogram indicated a low normal EF of around 45 to 50%. Patient is on IV hydrocortisone for colitis. 05/17/21 BRIGITTE ASHRAF called due to somnolence and respiratory distress. Pt had been off of telemetry from 2 am until 830 am, SR 80s noted when reconnected. CT of brain negative. CXR reveals new / worsening pulmonary edema. Hgb improved, now > 9 g/dl. I/ O inaccurate in last 24 hrs as pt was not using urinal bottle. Waldrop now placed, and lasix increased to 40 mg IV BID. Await ABG result. Continue BiPap. Pt with total body volume overload, low albumin. Per discussion with GI, his degree of hypoproteinemia is out of proportion with the (mild ) severity of his ulcerative colitis. Spot urine protein: creatine ratio only mildly elevated in March. Now that Waldrop is in place, proceed with 24 hr urine collection for urine protein (to exclude nephrotic syndrome). Will go back and review echo from last month with regards to systolic / diastolic indices. Although sotalol can be implicated in fluid retention , he has been on it since 2019, so not new medication, and indicated to help maintain SR. Admission and Anticipated Discharge Date Admission Date: May 03, 2021 Subjective Pt seen in follow up. BRIGITTE ASHRAF called this am due to change in mental status and respiratory distress. Pt somnolent at time of my assessment. Review of Systems Review of Systems: Unobtainable due to reduced consciousness Physical Exam Constitutional: + acute distress Respiratory: decreased BS at the bases Cardiovascular: Rate/Rhythm: regular rate Heart Sounds: no murmur Extremities: + edema (2+ LE edema ) Gastrointestinal (Abdomen): normal bowel sounds, soft, nontender, no hepatosplenomegaly Neurologic: new somnolence Results & Data ([facility]) Vital Signs (Past 12 Hours) Vital Signs Temp Pulse Pulse Resp BP Pulse Ox 05/07/21 08:55 104 H 22 97 05/07/21 07:52 36.6 C 86 18 117/80 94 05/06/21 23:01 36.3 C L 87 17 124/82 94 05/06/21 22:19 94 H (1) Diarrhea Diarrhea type: unspecified type Qualified Code(s): R19.7 - Diarrhea, unspecified (2) Anemia Anemia type: other cause Other causes of anemia: other cause, not classified Qualified Code(s): D64.89 - Other specified anemias (3) Fluid overload Hypervolemia type: unspecified Qualified Code(s): E87.70 - Fluid overload, unspecified
[2021-05-07] MEDS ORDERED: LORazepam 0.5 MG/1 ML VIAL IV STA (09:56)
[2021-05-07] MEDS: MULTIVITAMIN TAB PO SCH (10:07)
[2021-05-07] MEDS: ATORVASTATIN 40 MG TAB PO SCH (10:07)
[2021-05-07] MEDS: FUROSEMIDE INJ 20 MG/2 ML VIAL IV SCH (10:10)
[2021-05-07] MEDS: ALBUT/IPRATROP 3MG/0.5MG NEB 3 ML VIAL NEB SCH ×3 (10:30→17:58)
--- NOTE | 2021-05-07 10:30 | Communication Note ---
Date of Service: May 07, 2021 GI communication note: Pt had been seen previously for anemia. Code Riki was called this morning, pt noted to have pulmonary edema and has respiratory distress. No signs of GI bleeding per nurse. Would defer endoscopic evaluation for anemia since he's not medically stable for sedation at this time and no active s/s of GI bleeding. Would place pt on PPI BID empirically. Please recall GI prn
[2021-05-07] MEDS: AMPICILLIN/SULBACTAM SOD 1,500 MG in 0.9 % SODIUM CHLORIDE 100 ML IV SCH ×3 (11:37→21:46)
[2021-05-07] MEDS: POTASSIUM CHLORIDE CRTAB 20 MEQ TABCR PO SCH ×2 (11:39→20:27)
--- NOTE | 2021-05-07 12:44 | Communication Note ---
Date of Service: May 07, 2021 Pt comfortable on BiPap upon reassessment. > 1 liter of urine output thus far.
[2021-05-07] MEDS: MAGNESIUM CHLORIDE 64MG DELAYED REL TAB PO SCH ×2 (14:38→21:47)
[2021-05-07] MEDS: SOTALOL HCL 80 MG TAB PO SCH ×2 (14:38→20:27)
--- NOTE | 2021-05-07 15:53 | Electrocardiogram Report ---
Test Reason : Blood Pressure : / mmHG Vent. Rate : 096 BPM Atrial Rate : 096 BPM P-R Int : 196 ms QRS Dur : 094 ms QT Int : 396 ms P-R-T Axes : 051 060 068 degrees QTc Int : 500 ms Sinus rhythm with Premature atrial complexes Low voltage QRS Possible Anterolateral infarct , age undetermined Prolonged QT Abnormal ECG When compared with ECG of 03-MAY-2021 14:38, Borderline criteria for Anterolateral infarct are now Present Non-specific change in ST segment in Anterior leads Nonspecific T wave abnormality, improved in Inferior leads Nonspecific T wave abnormality no longer evident in Lateral leads Confirmed by Mahad Sarah ([id number]) on 05/07/2021 3:53:11 PM Referred By: Jenna Burgess Confirmed By:Mahad Sarah
--- NOTE | 2021-05-07 15:58 | Electrocardiogram Report ---
Test Reason : Blood Pressure : / mmHG Vent. Rate : 090 BPM Atrial Rate : 090 BPM P-R Int : 174 ms QRS Dur : 096 ms QT Int : 404 ms P-R-T Axes : 056 083 085 degrees QTc Int : 494 ms Sinus rhythm with Premature atrial complexes Low voltage QRS Prolonged QT Abnormal ECG When compared with ECG of 06-MAY-2021 19:34, (unconfirmed) Borderline criteria for Anterolateral infarct are no longer Present Non-specific change in ST segment in Anterior leads Nonspecific T wave abnormality now evident in Anterior leads Confirmed by Mahad Sarah ([id number]) on 05/07/2021 3:57:49 PM Referred By: Jenna Burgess Confirmed By:Mahad Sarah
[2021-05-07] MEDS ORDERED: FUROSEMIDE INJ 20 MG/2 ML VIAL IV SCH (17:00)
[2021-05-07 17:18] LABS: BUN Creatinine Ratio 7.6 (10-20); Calcium 7.7 mg/dl (8.5-10.1); Creatinine Clr Calc Pharmacy 166.5 ml/min; Est GFR (African American) 122.6 ml/min; Est GFR (Non-African American) 105.7 ml/min; Potassium 3.3 mmol/L (3.5-5.1)
[2021-05-07] MEDS: FUROSEMIDE 40 MG/4 ML VIAL IV SCH (17:19)
[2021-05-07] MEDS ORDERED: ALBUT/IPRATROP 3MG/0.5MG NEB 3 ML VIAL NEB PRN (18:45)
[2021-05-07] MEDS ORDERED: POTASSIUM CHLORIDE CRTAB 20 MEQ TABCR PO ONE (18:50)
[2021-05-07] MEDS: PANTOprazole 40 MG TAB PO SCH (20:27)
[2021-05-07 23:48] LABS: Cdiff Antigen Positive
[2021-05-07 23:49] LABS: Cdiff Toxin A+B Positive Cdiff Toxin (Negative)
[2021-05-08] MEDS: FIDAXOMICIN 200 MG TAB PO SCH ×2 (00:51→20:23)
[2021-05-08] MEDS: AMPICILLIN/SULBACTAM SOD 1,500 MG in 0.9 % SODIUM CHLORIDE 100 ML IV SCH ×4 (04:24→22:34)
[2021-05-08 04:32] LABS: Hematocrit (blood only) 24.2 % (42-52); Hemoglobin 7.7 g/dL (14.0-18.0); Mean Corpuscular Hemoglobin 29.4 pg (25-34); Mean Corpuscular Hgb Conc 31.8 g/dL (32-36); Mean Corpuscular Volume 92.4 fL (80-100); Mean Platelet Volume 9.9 fL (7.4-10.4); Platelet Count 423 K/uL (130-400); RDW Coefficient of Variation 16.3 % (11.5-14.5); RDW Standard Deviation 55.5 fL (36.4-46.3); Red Blood Count 2.62 M/uL (4.7-6.1)
[2021-05-08 05:01] LABS: BUN Creatinine Ratio 10.6 (10-20); Calcium 8.3 mg/dl (8.5-10.1); Creatinine Clr Calc Pharmacy 146.2 ml/min; Est GFR (African American) 116.2 ml/min; Est GFR (Non-African American) 100.3 ml/min; Potassium 3.6 mmol/L (3.5-5.1)
[2021-05-08] MEDS: SOTALOL HCL 80 MG TAB PO SCH ×2 (06:55→20:24)
[2021-05-08] MEDS: MAGNESIUM CHLORIDE 64MG DELAYED REL TAB PO SCH ×2 (06:56→20:23)
[2021-05-08] MEDS: MULTIVITAMIN TAB PO SCH (06:56)
[2021-05-08] MEDS: POTASSIUM CHLORIDE CRTAB 20 MEQ TABCR PO SCH ×2 (06:56→20:24)
[2021-05-08] MEDS: PANTOprazole 40 MG TAB PO SCH ×2 (06:56→20:23)
[2021-05-08] MEDS: HYDROCORTISONE SOD 100 MG in SYRINGE 0 ML IV SCH (06:56)
[2021-05-08] MEDS: FUROSEMIDE 40 MG/4 ML VIAL IV SCH ×2 (06:56→16:03)
[2021-05-08] MEDS: ATORVASTATIN 40 MG TAB PO SCH (06:56)
[2021-05-08] MEDS: INSULIN ASPART 100 UNITS/ML 3 ML PEN SC SCH ×4 (07:44→20:25)
[2021-05-08] MEDS ORDERED: PHARMACY GLYCEMIC MGMT CONSULT PRN (08:09)
[2021-05-08] MEDS ORDERED: INSULIN GLARGINE SOLOSTAR 100 UNITS/ML 3 ML PEN SC STA ×2 (08:25→16:52)
--- NOTE | 2021-05-08 11:33 | Cardiology Progress Note ---
Date of Service May 08, 2021 Assessment & Plan (1) Pulmonary edema: (2) Fluid overload: (3) Hypoalbuminemia: (4) Anemia: (5) Colitis: Plan: Given diagnosis of C. difficile colitis, he is off of hydrocortisone and now on Ampicillin and Dificid. Hgb is stable. Remains in SR on sotalol. BP improved. Anticoagulation on hold due to anemia, had IVC filter for DVT this admission. 3.5 L of urine ouput noted. Continue furosemide 40 mg IV BID Waldrop catheter placed 05/07 (day 2 today). Potassium 3.7, replace orally and add low dose spironolactone. Admission and Anticipated Discharge Date Admission Date: May 03, 2021 Subjective Mr Booker is seen in follow up of shortness of breath and edema. He is now in room 103 (telemetry status) requiring a private room for isolation given C. difficile colitis. SOB and edema improved. Review of Systems Review of Systems: All systems reviewed & are unremarkable except as noted in HPI & below Physical Exam Physical Exam: Temp Pulse Resp BP Pulse Ox 36.6 C 71 14 120/67 92 05/08/21 07:18 05/08/21 07:18 05/08/21 07:18 05/08/21 07:18 05/08/21 07:18 Constitutional: + acute distress and + ill appearing Respiratory: normal respiratory effort, lungs clear to auscultation Cardiovascular: Rate/Rhythm: regular rate and regular rhythm Heart Sounds: no murmur Extremities: + edema (1+ LE edema , improved) Gastrointestinal (Abdomen): normal bowel sounds, soft, nontender, no hepatosplenomegaly Results & Data ([facility]) Vital Signs (Past 12 Hours) Vital Signs Temp Pulse Pulse Resp BP BP Pulse Ox 05/08/21 07:18 36.6 C 71 14 120/67 92 05/08/21 05:06 83 16 113/74 94 05/08/21 04:51 36.4 C L 82 16 113/74 94 Laboratory Results CBC 05/08/21 Range/Units 04:07 WBC 13.00 H (4.8-10.8) K/uL RBC 2.62 L (4.7-6.1) M/uL Hgb 7.7 L (14.0-18.0) g/dL Hct 24.2 L (42-52) % Plt Count 423 H (130-400) K/uL Comprehensive Metabolic Panel 05/07/21 05/08/21 Range/Units 16:25 04:07 Sodium 140 138 (136-145) mmol/L Potassium 3.3 L D 3.6 (3.5-5.1) mmol/L Chloride 103 103 (98-107) mmol/L Carbon Dioxide 28 29 (21-32) mmol/L BUN 5 L 8 (7-18) mg/dl Creatinine 0.65 0.74 (0.6-1.4) mg/dl Glucose 213 H 241 H (70-99) mg/dl Calcium 7.7 L 8.3 L (8.5-10.1) mg/dl Intake and Output 05/07/21 05/08/21 05/08/21 22:59 06:59 14:59 Intake Total 708 / 1116 104 / 1116 Output Total 851 / 3577 3576 Balance -143 / -2461 103 / -2461 Intake: IV 208 / 516 104 / 516 Ampicillin/Sulbactam Sod 1,500 208 / 416 104 / 416 mg In 0.9 % Sodium Chloride 100 ml @ 200 mls/hr IV Q6H BRITTANI Rx# :[id number] Oral 500 / 600 Output: Urine Amount (Catheter) 850 / 3575 Waldrop/Indwelling 850 / 3575 # Bowel Movements 1 / 2 1 / 2 Diagnostic Findings SR in the 70s noted on telemetry . (1) Fluid overload Hypervolemia type: unspecified Qualified Code(s): E87.70 - Fluid overload, unspecified (2) Anemia Anemia type: other cause Other causes of anemia: other cause, not classified Qualified Code(s): D64.89 - Other specified anemias
--- NOTE | 2021-05-08 11:44 | Pharmacy Report ---
Pharmacy Glycemic Short Note 2 - Date of Service May 08, 2021 - Glycemic Short BSG Results (Last 24 hours): 05/07/21 05/07/21 05/07/21 16:25 16:38 19:57 Glucose 213 H POC Glucose 226 H 280 H 05/08/21 05/08/21 05/08/21 04:07 07:04 11:15 Glucose 241 H POC Glucose 256 H 275 H OUTPATIENT ANTIDIABETIC REGIMEN: * Metformin 1gm PO BID * Dulaglutide SQ once weekly * A1c = 6.9% 03/23/21 ASSESSMENT: * Patient admitted for SOB, volume overload, pulm edema, possible ADHF, delirium, c diff colitis and worsening anemia from possible lower GIB * Glycemic control deteriorated with the addition of IV hydrocortisone. This therapy has been d/c'd. Last dose of Hydrocortisone 100mg given this AM. Would expect improved insulin sensitivity over the course of the day today. * Fasting BSG elevated this AM with no basal insulin on board. Will give single dose of Lantus based upon weight and "mild-moderate" stress. Single dose only as pt did not require basal insulin earlier this admission when not receiving steroid. * Novolog dose will be adjusted to "moderate-severe" stress level, until BSGs begin to trend down -will then lessen accordingly PLAN FOR INPATIENT GLYCEMIC CONTROL: * Hold outpatient oral diabetes medications (metformin + dulaglutide) * Basal insulin * Lantus 25 units SQ x 1, reassess needs this PM * Bolus insulin * NovoLog per scale ACHS or Q6hrs while NPO * Goal Range: Low 110 mg/dL - High 140 mg/dL * Correction Factor: 18 mg/dL/unit * Nutritional / Prandial insulin per carb ratio of 1 unit per 6 grams CHO consumed PLAN FOR DISCHARGE: * may resumed outpt regimen of metformin + dulaglutide on discharge (if no contraindications present) as last A1c at goal.
[2021-05-08] MEDS: SPIRONOLACTONE 12.5 MG TAB PO SCH (12:52)
[2021-05-08 16:08] LABS: Hematocrit (blood only) 25.3 % (42-52)
--- NOTE | 2021-05-08 16:39 | Hospitalist Progress Note ---
Date of Service May 08, 2021 Assessment & Plan (1) SOB (shortness of breath): Plan: Acute respiratory failure with hypoxia Volume Overload Likely due to Hypoalbuminemia/Severe Protein Calorie Malnutrition, ? Diastolic heart failure --CXR:Interval development of mild interstitial pulmonary edema and small bilateral pleural effusions. Fluid restriction Monitor I/Os Product Support Analyst Consulted Received Albumin, Lasix Appreciate Cardiology Input Monitor volume status Chest x-ray today showed moderate pulmonary edema on 12/6 Monitor electrolytes and replace as needed Continue Lasix 40mg BID Currently on 2 L supplemental oxygen Check chest x-ray tomorrow Acute metabolic encephalopathy Likely secondary to hypoxia DD: Delirium Possible aspiration -CT Head:No acute intracranial findings. No change in appearance of the brain. On Unasyn day #2 Reorient frequently to minimize delirium C. difficile colitis Started on Dificid Symptomatic blood loss anemia Lower GI bleeding likely IBD H/O Colitis on mesalamine Intolerant to Mesalamine Was on Budesonide Monitor H&H and Transfuse PRBCs PRN And to be started on Remicade as outpatient Currently no plan for EGD colonoscopy as per GI Stool studies negative for infection Budesonide held Started on hydrocortisone continue PPI as per GI Hemoglobin 7.7> 9.4>8.0 Continue PPI No signs of acute GI bleed Hydrocortisone held secondary to C diff infection Acute left lower extremity DVT Venous Doppler: Thrombus identified within the left popliteal, posterior tibial, peroneal, and a superficial gastrocnemius vein. This is new from the prior [facility]. S/P IVC filter Appreciate vascular surgery input Not a candidate for anticoagulation H/O recurrent GI bleeding Hypokalemia Replace electrolytes as needed HTN BP relatively low Lisinopril discontinued CAD S/P stent On beta-tao, statin H/O Atrial flutter S/P cardioversion off Coumadin secondary to recurrent GI bleed Continue sotalol Hyperlipidemia on statin DM II on oral medications Last HBA1C: 6.1 last April 2021 Continue Insulin therapy DVT Px: SCDs Re: Recurrent GI bleed Code Status Full code Disposition PT/OT prior to discharge Ms. Nessa Booker, contact #[phone]. Admission and Anticipated Discharge Date Admission Date: May 03, 2021 Subjective Patient is seen and examined at bedside Patient is oriented at baseline States his dyspnea is much improved Leg edema slowly improving as well Had 2 loose BMs today Denies any chest pain, nausea, abdominal pain, bleeding per rectum. Hemoglobin stable Review of Systems Review of Systems: All systems reviewed & are unremarkable except as noted in Subjective Physical Exam Physical Exam: Physical Exam: Vitals signs as noted above General Appearance:Morbidly Obese, no apparent distress Head: normocephalic, Atraumatic Eyes: normal inspection, EOMI Neck: supple, Trachea midline Respiratory/Chest: Normal breath sounds, CTA Cardiovascular: S1, S2, No murmur Abdomen/GI:Soft, Non tender, Bowel sounds present Extremities/Musculoskeletal:normal inspection, +B/L LE edema Neurologic/Psych:AAOX3, grossly no focal neurological deficits Skin: normal color, warm Results & Data Results & Data ([facility]) Vital Signs (Past 12 Hours) Vital Signs Temp Pulse Pulse Resp BP BP Pulse Ox 05/08/21 16:15 77 14 108/62 90 05/08/21 11:33 74 14 113/70 94 05/08/21 07:18 36.6 C 71 14 120/67 92 05/08/21 05:06 83 16 113/74 94 05/08/21 04:51 36.4 C L 82 16 113/74 94 Laboratory Results Short CBC 05/08/21 05/08/21 Range/Units 04:07 16:01 WBC 13.00 H (4.8-10.8) K/uL Hgb 7.7 L 8.0 L (14.0-18.0) g/dL Hct 24.2 L 25.3 L (42-52) % Plt Count 423 H (130-400) K/uL BMP 05/07/21 05/08/21 16:25 04:07 Sodium 140 138 Potassium 3.3 L D 3.6 Chloride 103 103 Carbon Dioxide 28 29 BUN 5 L 8 Creatinine 0.65 0.74 Glucose 213 H 241 H Calcium 7.7 L 8.3 L
[2021-05-09] MEDS: INSULIN ASPART 100 UNITS/ML 3 ML PEN SC SCH ×6 (00:37→22:31)
[2021-05-09] MEDS ORDERED: INSULIN ASPART 100 UNITS/ML 3 ML PEN SC ONE (02:00)
[2021-05-09] MEDS: AMPICILLIN/SULBACTAM SOD 1,500 MG in 0.9 % SODIUM CHLORIDE 100 ML IV SCH ×4 (04:07→22:29)
[2021-05-09 04:50] LABS: Hemoglobin 8.1 g/dL (14.0-18.0); Mean Corpuscular Hemoglobin 29.2 pg (25-34); Mean Corpuscular Hgb Conc 31.2 g/dL (32-36); Mean Corpuscular Volume 93.9 fL (80-100); Mean Platelet Volume 9.9 fL (7.4-10.4); Platelet Count 427 K/uL (130-400); RDW Standard Deviation 54.9 fL (36.4-46.3); Red Blood Count 2.77 M/uL (4.7-6.1); White Blood Count 11.56 K/uL (4.8-10.8)
[2021-05-09 05:25] LABS: BUN Creatinine Ratio 10.9 (10-20); Calcium 7.8 mg/dl (8.5-10.1); Creatinine Clr Calc Pharmacy 117.6 ml/min; Est GFR (African American) 104.4 ml/min; Est GFR (Non-African American) 90.1 ml/min; Magnesium 1.9 mg/dl (1.8-2.4); Phosphorus 2.3 mg/dl (2.5-4.9); Potassium 2.7 mmol/L (3.5-5.1)
[2021-05-09] MEDS ORDERED: MAGNESIUM SULFATE / D5W 1 GM/100 ML BAG IV ONE (06:35)
[2021-05-09] MEDS ORDERED: POTASSIUM CHLORIDE CRTAB 20 MEQ TABCR PO STA ×3 (06:35→21:04)
[2021-05-09] MEDS ORDERED: ALBUMIN 25% 100 mL 25 GM/100 ML VIAL IV ONE (06:38)
--- NOTE | 2021-05-09 06:39 | Communication Note ---
Date of Service: May 09, 2021 Made aware by RN of hypokalemia with a.m. lab work and urine output overnight of less than 100 cc/h. serum crea 0.92 (from 0.74, 05/08) SBP 90-100s AP Hypotension Low urine output Increasing creatinine Possible overdiuresis IV albumin 1 dose Hold diuretics for now until patient evaluated by cardiology.
--- NOTE | 2021-05-09 07:47 | XRay Report ---
XR chest 1V portable CLINICAL HISTORY: Pulmonary Edema. Hypoxia COMPARISON STUDY: 05/07/2021 TECHNIQUE: 1 view of the chest FINDINGS: Single frontal view of the chest demonstrates the heart size to again be enlarged. Compared to the pr evious examination, there has been significant interval resolution of previously identified pulmonary edema. Only mild central vascular congestion is present. There is evidence for left pleural effusion and left basilar atelectasis. No confluent alveolar opacities are seen. There is no acute osseous pa thology. IMPRESSION: Significant interval resolution of previously identified pulmonary edema with only mild c entral vascular congestion remain present. There is also evidence for small left pleural effusion and left basilar atelectasis. ACT 112: Negative or not required by law. Electronically signed by: Wilmer Cat M.D. 05/09/2021 7:45 AM
[2021-05-09] MEDS ORDERED: POTASSIUM CHLORIDE CRTAB 20 MEQ TABCR PO ONE (08:30)
[2021-05-09] MEDS: ATORVASTATIN 40 MG TAB PO SCH (08:48)
[2021-05-09] MEDS: SOTALOL HCL 80 MG TAB PO SCH ×2 (08:48→22:24)
[2021-05-09] MEDS: MULTIVITAMIN TAB PO SCH (08:48)
[2021-05-09] MEDS: MAGNESIUM CHLORIDE 64MG DELAYED REL TAB PO SCH ×2 (08:49→22:23)
[2021-05-09] MEDS: PANTOprazole 40 MG TAB PO SCH ×2 (08:49→22:22)
[2021-05-09] MEDS: FIDAXOMICIN 200 MG TAB PO SCH ×2 (08:58→22:27)
[2021-05-09] MEDS ORDERED: INSULIN GLARGINE SOLOSTAR 100 UNITS/ML 3 ML PEN SC SCH (09:00)
--- NOTE | 2021-05-09 10:03 | Hospitalist Progress Note ---
Date of Service May 09, 2021 Assessment & Plan (1) SOB (shortness of breath): Plan: Acute respiratory failure with hypoxia Volume Overload Likely due to Hypoalbuminemia/Severe Protein Calorie Malnutrition, ? Diastolic heart failure --CXR:Interval development of mild interstitial pulmonary edema and small bilateral pleural effusions. Fluid restriction Monitor I/Os Family Services Assistant Consulted Received Albumin, Lasix Appreciate Cardiology Input Monitor volume status Chest x-ray showed moderate pulmonary edema on 05/07 Monitor electrolytes and replace as needed Continued Lasix 40mg BID - now on hold d/t hypokalemia Currently on RA chest x-ray today -much improved pulmonary edema Acute metabolic encephalopathy - resolved Likely secondary to hypoxia DD: Delirium Possible aspiration -CT Head:No acute intracranial findings. No change in appearance of the brain. On Unasyn day #3 Reorient frequently to minimize delirium C. difficile colitis Started on Dificid Stool seems to be now more formed and less frequent Symptomatic blood loss anemia Lower GI bleeding likely IBD H/O Colitis on mesalamine Intolerant to Mesalamine Was on Budesonide Monitor H&H and Transfuse PRBCs PRN And to be started on Remicade as outpatient Currently no plan for EGD colonoscopy as per GI Budesonide held Started on hydrocortisone (now on hold d/t c. diff) continue PPI as per GI Hemoglobin 7.7> 9.4>8.0 Continue PPI No signs of acute GI bleed Hydrocortisone held secondary to C diff infection Acute left lower extremity DVT Venous Doppler: Thrombus identified within the left popliteal, posterior tibial, peroneal, and a superficial gastrocnemius vein. This is new from the prior study. S/P IVC filter Appreciate vascular surgery input Not a candidate for anticoagulation H/O recurrent GI bleeding Hypokalemia Replace electrolytes as needed HTN BP relatively low Lisinopril discontinued CAD S/P stent On beta-tao, statin H/O Atrial flutter S/P cardioversion off Coumadin secondary to recurrent GI bleed Continue sotalol Hyperlipidemia on statin DM II on oral medications Last HBA1C: 6.1 last April 2021 Continue Insulin therapy DVT Px: SCDs Re: Recurrent GI bleed Code Status : Full code Disposition PT/OT prior to discharge Ms. Nessa Booker, contact #[phone]. Admission and Anticipated Discharge Date Admission Date: May 03, 2021 Subjective Patient is seen in follow-up of shortness of breath, pulmonary edema Overnight to decrease urine output, low potassium this a.m., replaced Patient also received IV albumin by construction estimator Currently laying in bed, in no acute distress, reports feeling much better He is currently breathing comfortably on room air Reports his lower extremity edema is much improved Stool this morning seems to be more formed per pt Denies any chest pain, nausea, abdominal pain, bleeding per rectum. Hemoglobin stable Review of Systems Review of Systems: All systems reviewed & are unremarkable except as noted in Subjective Physical Exam Physical Exam: General Appearance:Morbidly Obese, no apparent distress Head: normocephalic, Atraumatic Eyes: normal inspection, EOMI Neck: supple, Trachea midline Respiratory/Chest: Normal breath sounds, CTA, mild crackles, no wheezing Cardiovascular: S1, S2, No murmur Abdomen/GI:Soft, Non tender, Bowel sounds present Extremities/Musculoskeletal:normal inspection, + trace B/L LE edema (much improved) Neurologic/Psych:AAOX3, no facial asymmetry, speech fluent, moves extremities Skin: normal color, warm Results & Data Results & Data ([facility]) Vital Signs (Past 12 Hours) Vital Signs Temp Pulse Pulse Resp BP Pulse Ox 05/09/21 08:11 36.9 C 70 18 132/65 92 05/09/21 03:46 36.7 C 73 20 106/51 L 90 05/08/21 23:16 36.7 C 85 20 92/62 L 94 05/08/21 23:14 80 Laboratory Results 05/09/21 05/09/21 05/09/21 Range/Units 07:35 04:12 04:12 WBC 11.56 H (4.8-10.8) K/uL RBC 2.77 L (4.7-6.1) M/uL Hgb 8.1 L (14.0-18.0) g/dL Hct 26.0 L (42-52) % MCV 93.9 (80-100) fL MCH 29.2 (25-34) pg MCHC 31.2 L (32-36) g/dL RDW Std Deviation 54.9 H (36.4-46.3) fL RDW Coeff of Mychal 16.0 H (11.5-14.5) % Plt Count 427 H (130-400) K/uL MPV 9.9 (7.4-10.4) fL Sodium 140 (136-145) mmol/L Potassium 2.7 L D (3.5-5.1) mmol/L Chloride 104 (98-107) mmol/L Carbon Dioxide 31 (21-32) mmol/L Anion Gap 5.0 (3-11) BUN 10 (7-18) mg/dl Creatinine 0.92 (0.6-1.4) mg/dl Est Cr Clr Drug Dosing 117.6 ml/min Est GFR ( Amer) 104.4 ml/min Est GFR (Non-Af Amer) 90.1 ml/min BUN/Creatinine Ratio 10.9 (10-20) Glucose 164 H (70-99) mg/dl POC Glucose 167 H (70-99) mg/dl Calcium 7.8 L (8.5-10.1) mg/dl Phosphorus 2.3 L (2.5-4.9) mg/dl Magnesium 1.9 (1.8-2.4) mg/dl 05/09/21 05/09/21 05/08/21 Range/Units 04:01 00:09 20:03 WBC (4.8-10.8) K/uL RBC (4.7-6.1) M/uL Hgb (14.0-18.0) g/dL Hct (42-52) % MCV (80-100) fL MCH (25-34) pg MCHC (32-36) g/dL RDW Std Deviation (36.4-46.3) fL RDW Coeff of Mychal (11.5-14.5) % Plt Count (130-400) K/uL MPV (7.4-10.4) fL Sodium (136-145) mmol/L Potassium (3.5-5.1) mmol/L Chloride (98-107) mmol/L Carbon Dioxide (21-32) mmol/L Anion Gap (3-11) BUN (7-18) mg/dl Creatinine (0.6-1.4) mg/dl Est Cr Clr Drug Dosing ml/min Est GFR ( Amer) ml/min Est GFR (Non-Af Amer) ml/min BUN/Creatinine Ratio (10-20) Glucose (70-99) mg/dl POC Glucose 175 H 211 H 264 H (70-99) mg/dl Calcium (8.5-10.1) mg/dl Phosphorus (2.5-4.9) mg/dl Magnesium (1.8-2.4) mg/dl 05/08/21 05/08/21 05/08/21 Range/Units 16:01 16:01 11:15 WBC (4.8-10.8) K/uL RBC (4.7-6.1) M/uL Hgb 8.0 L (14.0-18.0) g/dL Hct 25.3 L (42-52) % MCV (80-100) fL MCH (25-34) pg MCHC (32-36) g/dL RDW Std Deviation (36.4-46.3) fL RDW Coeff of Mychal (11.5-14.5) % Plt Count (130-400) K/uL MPV (7.4-10.4) fL Sodium (136-145) mmol/L Potassium (3.5-5.1) mmol/L Chloride (98-107) mmol/L Carbon Dioxide (21-32) mmol/L Anion Gap (3-11) BUN (7-18) mg/dl Creatinine (0.6-1.4) mg/dl Est Cr Clr Drug Dosing ml/min Est GFR ( Amer) ml/min Est GFR (Non-Af Amer) ml/min BUN/Creatinine Ratio (10-20) Glucose (70-99) mg/dl POC Glucose 295 H 275 H (70-99) mg/dl Calcium (8.5-10.1) mg/dl Phosphorus (2.5-4.9) mg/dl Magnesium (1.8-2.4) mg/dl Medications Administered Current Inpatient Medications Acetaminophen (Acetaminophen 325 Mg Tab) 650 mg PO Q4H PRN PRN Reason: Pain or Fever Stop: 06/03/21 01:26 Albuterol (Albut/Ipratrop 3mg/0.5mg Neb 3 Ml Vial) 3 ml NEB Q4 PRN PRN Reason: Shortness Of Breath Or Wheezing Stop: 06/06/21 18:44 Atorvastatin Calcium (Atorvastatin 40 Mg Tab) 40 mg PO DAILY BRITTANI Stop: 06/03/21 08:59 Last Admin: 05/09/21 08:48 Dose: 40 mg Documented by: Budesonide (Budesonide Ec 3 Mg Cap) 9 mg PO DAILY [facility] Stop: 06/03/21 08:59 Last Admin: 05/05/21 08:30 Dose: 9 mg Documented by: Dextrose (Dextrose 50% 50 Ml Syringe) 25 - 50 ml IV UD PRN; Protocol PRN Reason: Hypoglycemia Protocol Stop: 06/03/21 01:26 Fidaxomicin (Fidaxomicin 200 Mg Tab) 200 mg PO BID [facility] Stop: 05/17/21 23:44 Last Admin: 05/09/21 08:58 Dose: 200 mg Documented by: Furosemide (Furosemide 40 Mg/4 Ml Vial) 40 mg IV BID17 [facility] Stop: 06/06/21 16:59 Last Admin: 05/08/21 16:03 Dose: 40 mg Documented by: Glucagon (Glucagon For Inj 1 Mg Vial) 1 mg SQ UD PRN; Protocol PRN Reason: Hypoglycemia Protocol Stop: 06/03/21 01:26 Glucose (Glucose 10 Tabs/Tube) 4 - 8 tabs PO UD PRN; Protocol PRN Reason: Hypoglycemia Protocol Stop: 06/03/21 01:26 Glucose (Glucose 40% Gel 15 Gm Tube) 15 - 30 gm PO UD PRN; Protocol PRN Reason: Hypoglycemia Protocol Stop: 06/03/21 01:26 Promethazine HCl 12.5 mg/ (Sodium Chloride) 50.5 mls @ 202 mls/hr IV Q6H PRN PRN Reason: Nausea And Vomiting Stop: 06/03/21 01:26 Hydrocortisone Sodium (Succinate 100 mg/ Syringe) 2 mls @ 4 mls/min IV Q6H [facility] Stop: 06/04/21 17:59 Last Admin: 05/08/21 06:56 Dose: 4 mls/min Documented by: Ampicillin Sodium/Sulbactam Sodium 1,500 mg/ Sodium Chloride 104 mls @ 200 mls/hr IV Q6H [facility]; Protocol Stop: 05/14/21 09:59 Last Infusion: 05/09/21 04:45 Dose: Infused Documented by: Insulin Aspart (Insulin Aspart 100 Units/Ml 3 Ml Pen) 0 units SC ACHS [facility] Stop: 06/03/21 01:59 Last Admin: 05/09/21 08:44 Dose: 7 units Documented by: Insulin Aspart (Insulin Aspart 100 Units/Ml 3 Ml Pen) 0 units SC TODAY@0000,0400 [facility] Stop: 06/08/21 00:00 Last Admin: 05/09/21 04:09 Dose: 2 units Documented by: Insulin Glargine (Insulin Glargine Solostar 100 Units/Ml 3 Ml Pen) 25 units SC QAM BRITTANI Stop: 06/08/21 08:59 Last Admin: 05/09/21 08:47 Dose: 25 units Documented by: Magnesium Chloride (Magnesium Chloride 64mg Delayed Rel Tab) 64 mg PO BID BRITTANI Stop: 06/03/21 20:59 Last Admin: 05/09/21 08:49 Dose: 64 mg Documented by: Menthol (Cough Drop (Sugar Free) Tiana 24 Tiana/1 Box) 1 tiana BUCCAL PRN PRN PRN Reason: Cough Stop: 06/05/21 16:07 Last Admin: 05/06/21 19:45 Dose: 1 tiana Documented by: Miscellaneous (Carbohydrates For Hypoglycemia ) 15 - 30 gm PO UD PRN PRN Reason: Hypoglycemia Protocol Stop: 06/03/21 01:26 Miscellaneous Information (Pharmacy Glycemic Mgmt Consult) 1 ea N/A UD PRN PRN Reason: Consult Stop: 06/07/21 08:08 Multivitamins (Multivitamin Tab) 1 tab PO DAILY BRITTANI Stop: 06/03/21 08:59 Last Admin: 05/09/21 08:48 Dose: 1 tab Documented by: Olanzapine (Olanzapine 10 Mg/2.1 Ml Sdv) 5 mg IM Q6H PRN PRN Reason: Anxiety/Agitation Stop: 06/06/21 03:01 Pantoprazole Sodium (Pantoprazole 40 Mg Tab) 40 mg PO BID BRITTANI Stop: 06/06/21 20:59 Last Admin: 05/09/21 08:49 Dose: 40 mg Documented by: Potassium Chloride (Potassium Chloride Crtab 20 Meq Tabcr) 20 meq PO BID BRITTANI Stop: 06/03/21 08:59 Last Admin: 05/08/21 20:24 Dose: 20 meq Documented by: Sotalol HCl (Sotalol Hcl 80 Mg Tab) 80 mg PO BID BRITTANI Stop: 06/03/21 01:59 Last Admin: 05/09/21 08:48 Dose: 80 mg Documented by: Spironolactone (Spironolactone 12.5 Mg Tab) 12.5 mg PO DAILY [facility] Stop: 06/07/21 11:59 Last Admin: 05/08/21 12:52 Dose: 12.5 mg Documented by: Tramadol HCl (Tramadol Hcl 50 Mg Tablet) 25 - 50 mg PO Q4H PRN PRN Reason: Pain Stop: 06/03/21 01:26
--- NOTE | 2021-05-09 10:50 | Cardiology Progress Note ---
Date of Service May 09, 2021 Assessment & Plan (1) Pulmonary edema: (2) Fluid overload: (3) Hypoalbuminemia: (4) Anemia: (5) Colitis: Plan: Given diagnosis of C. difficile colitis, he is off of hydrocortisone and now on Ampicillin and Dificid. Hgb is stable, 8.1 g/dL today. Remains in SR on sotalol. BP stable. Anticoagulation on hold due to anemia, had IVC filter for DVT this admission. Potassium level 2.7 mmol/L, phosphorus 2.3, magnesium 1.9 Agree with holding furosemide, 05/09/2021, potassium chloride 40 mEq orally x2 doses, as well as his standing dose of potassium chloride 20 mEq twice daily ordered by primary service. Waldrop catheter placed 05/07 (day 3 today). -Spironolactone held, I am not quite sure why, perhaps due to systolic blood pressure of 92 overnight. Admission and Anticipated Discharge Date Admission Date: May 03, 2021 Subjective Patient seen in cardiology follow-up of edema and shortness of breath. His urine output has trailed off, he is assessed by the hospice service this morning, furosemide discontinued, dose of IV albumin administered, and electrolyte replacement for hypokalemia and hypomagnesemia started. He remains on treatment for C. difficile colitis. At present, the patient appears markedly improved compared to 2 days ago. He is on room air, not requiring BiPAP support, and he has minimal residual lower extremity edema. He remains in sinus rhythm on telemetry in the 70s. Review of Systems Review of Systems: All systems reviewed & are unremarkable except as noted in HPI & below Physical Exam Physical Exam: Temp Pulse Resp BP Pulse Ox 36.9 C 70 18 132/65 92 05/09/21 08:11 05/09/21 08:11 05/09/21 08:11 05/09/21 08:11 05/09/21 08:11 Constitutional: no acute distress Respiratory: normal respiratory effort, lungs clear to auscultation Cardiovascular: Rate/Rhythm: regular rate Heart Sounds: normal S1 and normal S2; no murmur Extremities: + edema (Trace lower leg edema, trending toward improvement) Gastrointestinal (Abdomen): normal bowel sounds, soft, nontender, no hepatosplenomegaly Neurologic: PERRL, EOMI, accommodation nl, no face palsy, no dysarthria (1) Fluid overload Hypervolemia type: unspecified Qualified Code(s): E87.70 - Fluid overload, unspecified (2) Anemia Anemia type: other cause Other causes of anemia: other cause, not classified Qualified Code(s): D64.89 - Other specified anemias
[2021-05-09 11:23] LABS: Urine Total Protein 24.4 mg/dl
[2021-05-09] MEDS: POTASSIUM CHLORIDE CRTAB 20 MEQ TABCR PO SCH ×2 (12:09→22:27)
--- NOTE | 2021-05-09 14:53 | Pharmacy Report ---
Pharmacy Glycemic Short Note 2 - Date of Service May 09, 2021 - Glycemic Short BSG Results (Last 24 hours): 05/08/21 05/08/21 05/09/21 16:01 20:03 00:09 Glucose POC Glucose 295 H 264 H 211 H 05/09/21 05/09/21 05/09/21 04:01 04:12 07:35 Glucose 164 H POC Glucose 175 H 167 H 05/09/21 11:23 Glucose POC Glucose 225 H OUTPATIENT ANTIDIABETIC REGIMEN: * Metformin 1gm PO BID * Dulaglutide SQ once weekly * A1c = 6.9% 03/23/21 ASSESSMENT: 05/09 * BSGs improving with changes made to insulin regimen yesterday * Fasting BSG improved this AM w/ 35 units basal on board, FBS 167. Will continue a weight based "low" stress Lantus dose as insulin sensitivity likely to improve given omission of steroids in last 24 hrs. Pt did not require basal insulin prior to hydrocortisone IV Q 6 hrs * Post-prandial BSG elevation observed pre-lunch today, will continue current Novolog CF/CR for now and reduce as BSGs improve 05/08 * Patient admitted for SOB, volume overload, pulm edema, possible ADHF, delirium, c diff colitis and worsening anemia from possible lower GIB * Glycemic control deteriorated with the addition of IV hydrocortisone. This therapy has been d/c'd. Last dose of Hydrocortisone 100mg given this AM. Would expect improved insulin sensitivity over the course of the day today. * Fasting BSG elevated this AM with no basal insulin on board. Will give single dose of Lantus based upon weight and "mild-moderate" stress. Single dose only as pt did not require basal insulin earlier this admission when not receiving steroid. * Novolog dose will be adjusted to "moderate-severe" stress level, until BSGs begin to trend down -will then lessen accordingly PLAN FOR INPATIENT GLYCEMIC CONTROL: * Hold outpatient oral diabetes medications (metformin + dulaglutide) * Basal insulin * Lantus 25 units SQ Q AM * Bolus insulin * NovoLog per scale ACHS or Q6hrs while NPO * Goal Range: Low 110 mg/dL - High 140 mg/dL * Correction Factor: 15 mg/dL/unit * Nutritional / Prandial insulin per carb ratio of 1 unit per 5 grams CHO consumed PLAN FOR DISCHARGE: * may resumed outpt regimen of metformin + dulaglutide on discharge (if no contraindications present) as last A1c at goal (A1c = 6.9%).
[2021-05-09 15:47] LABS: Calcium 7.8 mg/dl (8.5-10.1); Creatinine Clr Calc Pharmacy 120.3 ml/min; Est GFR (African American) 107.2 ml/min; Est GFR (Non-African American) 92.5 ml/min; Potassium 3.3 mmol/L (3.5-5.1)
[2021-05-09] MEDS ORDERED: INSULIN GLARGINE SOLOSTAR 100 UNITS/ML 3 ML PEN SC STA (17:23)
[2021-05-09 20:04] LABS: Total Protein 24 Hour Urine 317.2 mg/24 Hr (0-149.1)
[2021-05-10] MEDS: INSULIN ASPART 100 UNITS/ML 3 ML PEN SC SCH ×6 (00:15→21:22)
[2021-05-10] MEDS: AMPICILLIN/SULBACTAM SOD 1,500 MG in 0.9 % SODIUM CHLORIDE 100 ML IV SCH ×2 (04:48→08:58)
[2021-05-10 05:06] LABS: Hematocrit (blood only) 26.8 % (42-52); Hemoglobin 8.3 g/dL (14.0-18.0)
[2021-05-10 05:46] LABS: BUN Creatinine Ratio 9.9 (10-20); Calcium 8.1 mg/dl (8.5-10.1); Creatinine Clr Calc Pharmacy 146.8 ml/min; Est GFR (African American) 116.2 ml/min; Est GFR (Non-African American) 100.3 ml/min; Phosphorus 2.4 mg/dl (2.5-4.9); Potassium 3.8 mmol/L (3.5-5.1)
[2021-05-10] MEDS: SOTALOL HCL 80 MG TAB PO SCH ×2 (08:49→21:21)
[2021-05-10] MEDS: ATORVASTATIN 40 MG TAB PO SCH (08:50)
[2021-05-10] MEDS: MAGNESIUM CHLORIDE 64MG DELAYED REL TAB PO SCH ×2 (08:50→21:21)
[2021-05-10] MEDS: PANTOprazole 40 MG TAB PO SCH ×2 (08:50→21:21)
[2021-05-10] MEDS: MULTIVITAMIN TAB PO SCH (08:50)
--- NOTE | 2021-05-10 08:50 | Hospitalist Progress Note ---
Date of Service May 10, 2021 Assessment & Plan (1) SOB (shortness of breath): Plan: Acute respiratory failure with hypoxia Volume Overload Likely due to Hypoalbuminemia/Severe Protein Calorie Malnutrition, ? Diastolic heart failure --CXR:Interval development of mild interstitial pulmonary edema and small bilateral pleural effusions. Fluid restriction Monitor I/Os [employer] Seat [employer]pholste[employer] Consulted Received Albumin, Lasix Appreciate Cardiology Input Monitor volume status Chest x-ray showed moderate pulmonary edema on 05/07 Monitor electrolytes and replace as needed Continued Lasix 40mg BID - then on hold d/t hypokalemia, now (05/10) resumed spironolactone resumed Currently on RA Repeat chest x-ray -much improved pulmonary edema Acute metabolic encephalopathy - resolved Likely secondary to hypoxia DD: Delirium Possible aspiration -CT Head:No acute intracranial findings. No change in appearance of the brain. On Unasyn day #3 Re-orient frequently to minimize delirium No sign of infection - stop Unasyn (05/10) C. difficile colitis Started on Dificid Stool seems to be now more formed and less frequent Symptomatic blood loss anemia Lower GI bleeding likely IBD H/O Colitis on mesalamine Intolerant to Mesalamine Was on Budesonide Monitor H&H and Transfuse PRBCs PRN And to be started on Remicade as outpatient Currently no plan for EGD colonoscopy as per GI Budesonide held Started on hydrocortisone (now on hold d/t c. diff) continue PPI as per GI Hemoglobin 7.7> 9.4>8.0 Continue PPI No signs of acute GI bleed Hydrocortisone held secondary to C diff infection Acute left lower extremity DVT Venous Doppler: Thrombus identified within the left popliteal, posterior tibial, peroneal, and a superficial gastrocnemius vein. This is new from the prior study. S/P IVC filter Appreciate vascular surgery input Not a candidate for anticoagulation H/O recurrent GI bleeding Hypokalemia Replace electrolytes as needed HTN BP relatively low Lisinopril discontinued Proteinuria - 300mg in 24 hrs - obtain Cr/ prot. ratio as outpt and cont. to follow up - discussed w/ nephrology, may need outpt follow up w/ nephro if worsening CAD S/P stent On beta-tao, statin H/O Atrial flutter S/P cardioversion off Coumadin secondary to recurrent GI bleed Continue sotalol Hyperlipidemia on statin DM II on oral medications Last HBA1C: 6.1 last April 2021 Continue Insulin therapy DVT Px: SCDs Re: Recurrent GI bleed Code Status : Full code Disposition PT/OT prior to discharge Ms. Nessa Booker, contact #[phone]. Admission and Anticipated Discharge Date Admission Date: May 03, 2021 Subjective Patient is seen in follow-up of shortness of breath, pulmonary edema, GI bleed, DVT s/p IVC filter Currently pt is laying in bed, in no acute distress, reports feeling much better He is currently breathing comfortably on room air Reports his lower extremity edema is much improved Stool seems to be more formed per pt Denies any chest pain, nausea, abdominal pain, bleeding per rectum. Hemoglobin stable Review of Systems Review of Systems: All systems reviewed & are unremarkable except as noted in Subjective Physical Exam Physical Exam: General Appearance: Obese M, no apparent distress Head: normocephalic, Atraumatic Eyes: normal inspection, EOMI Neck: supple, Trachea midline Respiratory/Chest: Normal breath sounds, CTA, mild crackles, no wheezing Cardiovascular: S1, S2, No murmur Abdomen/GI:Soft, Non tender, Bowel sounds present Extremities/Musculoskeletal:normal inspection, + mild B/L LE edema (much improved) Neurologic/Psych:AAOX3, no facial asymmetry, speech fluent, moves extremities Skin: normal color, warm Results & Data Results & Data ([facility]) Vital Signs (Past 12 Hours) Vital Signs Temp Pulse Pulse Resp BP Pulse Ox 05/10/21 07:39 36.5 C 80 18 118/70 95 05/10/21 04:45 36.4 C L 80 24 116/66 92 05/09/21 23:30 36.7 C 71 77 16 108/66 94 Laboratory Results 05/10/21 05/10/21 05/10/21 Range/Units 07:10 04:51 04:30 Hgb 8.3 L (14.0-18.0) g/dL Hct 26.8 L (42-52) % Sodium (136-145) mmol/L Potassium (3.5-5.1) mmol/L Chloride (98-107) mmol/L Carbon Dioxide (21-32) mmol/L Anion Gap (3-11) BUN (7-18) mg/dl Creatinine (0.6-1.4) mg/dl Est Cr Clr Drug Dosing ml/min Est GFR ( Amer) ml/min Est GFR (Non-Af Amer) ml/min BUN/Creatinine Ratio (10-20) Glucose (70-99) mg/dl POC Glucose 144 H 134 H (70-99) mg/dl Calcium (8.5-10.1) mg/dl Phosphorus (2.5-4.9) mg/dl Magnesium (1.8-2.4) mg/dl Urine Total Volume mL Ur Total Protein 24 Hr (0-149.1) mg/24 Hr Urine Total Protein mg/dl 05/10/21 05/10/21 05/09/21 Range/Units 04:30 00:12 21:28 Hgb (14.0-18.0) g/dL Hct (42-52) % Sodium 140 (136-145) mmol/L Potassium 3.8 D (3.5-5.1) mmol/L Chloride 107 (98-107) mmol/L Carbon Dioxide 29 (21-32) mmol/L Anion Gap 4.0 (3-11) BUN 7 (7-18) mg/dl Creatinine 0.74 (0.6-1.4) mg/dl Est Cr Clr Drug Dosing 146.8 ml/min Est GFR ( Amer) 116.2 ml/min Est GFR (Non-Af Amer) 100.3 ml/min BUN/Creatinine Ratio 9.9 L (10-20) Glucose 138 H (70-99) mg/dl POC Glucose 175 H 218 H (70-99) mg/dl Calcium 8.1 L (8.5-10.1) mg/dl Phosphorus 2.4 L (2.5-4.9) mg/dl Magnesium 2.0 (1.8-2.4) mg/dl Urine Total Volume mL Ur Total Protein 24 Hr (0-149.1) mg/24 Hr Urine Total Protein mg/dl 05/09/21 05/09/21 05/09/21 Range/Units 19:59 16:02 16:02 Hgb (14.0-18.0) g/dL Hct (42-52) % Sodium (136-145) mmol/L Potassium (3.5-5.1) mmol/L Chloride (98-107) mmol/L Carbon Dioxide (21-32) mmol/L Anion Gap (3-11) BUN (7-18) mg/dl Creatinine (0.6-1.4) mg/dl Est Cr Clr Drug Dosing ml/min Est GFR ( Amer) ml/min Est GFR (Non-Af Amer) ml/min BUN/Creatinine Ratio (10-20) Glucose (70-99) mg/dl POC Glucose 191 H 207 H 207 H (70-99) mg/dl Calcium (8.5-10.1) mg/dl Phosphorus (2.5-4.9) mg/dl Magnesium (1.8-2.4) mg/dl Urine Total Volume mL Ur Total Protein 24 Hr (0-149.1) mg/24 Hr Urine Total Protein mg/dl 05/09/21 05/09/21 05/09/21 Range/Units 15:04 11:23 11:00 Hgb (14.0-18.0) g/dL Hct (42-52) % Sodium 138 (136-145) mmol/L Potassium 3.3 L D (3.5-5.1) mmol/L Chloride 105 (98-107) mmol/L Carbon Dioxide 29 (21-32) mmol/L Anion Gap 4.0 (3-11) BUN 9 (7-18) mg/dl Creatinine 0.90 (0.6-1.4) mg/dl Est Cr Clr Drug Dosing 120.3 ml/min Est GFR ( Amer) 107.2 ml/min Est GFR (Non-Af Amer) 92.5 ml/min BUN/Creatinine Ratio 10.0 (10-20) Glucose 194 H (70-99) mg/dl POC Glucose 225 H (70-99) mg/dl Calcium 7.8 L (8.5-10.1) mg/dl Phosphorus (2.5-4.9) mg/dl Magnesium (1.8-2.4) mg/dl Urine Total Volume 1300 mL Ur Total Protein 24 Hr 317.2 H (0-149.1) mg/24 Hr Urine Total Protein 24.4 mg/dl Medications Administered Current Inpatient Medications Acetaminophen (Acetaminophen 325 Mg Tab) 650 mg PO Q4H PRN PRN Reason: Pain or Fever Stop: 06/03/21 01:26 Albuterol (Albut/Ipratrop 3mg/0.5mg Neb 3 Ml Vial) 3 ml NEB Q4 PRN PRN Reason: Shortness Of Breath Or Wheezing Stop: 06/06/21 18:44 Atorvastatin Calcium (Atorvastatin 40 Mg Tab) 40 mg PO DAILY [facility] Stop: 06/03/21 08:59 Last Admin: 05/09/21 08:48 Dose: 40 mg Documented by: Budesonide (Budesonide Ec 3 Mg Cap) 9 mg PO DAILY [facility] Stop: 06/03/21 08:59 Last Admin: 05/05/21 08:30 Dose: 9 mg Documented by: Dextrose (Dextrose 50% 50 Ml Syringe) 25 - 50 ml IV UD PRN; Protocol PRN Reason: Hypoglycemia Protocol Stop: 06/03/21 01:26 Fidaxomicin (Fidaxomicin 200 Mg Tab) 200 mg PO BID [facility] Stop: 05/17/21 23:44 Last Admin: 05/09/21 22:27 Dose: 200 mg Documented by: Furosemide (Furosemide 40 Mg/4 Ml Vial) 40 mg IV [id number] [facility] Stop: 06/06/21 16:59 Last Admin: 05/08/21 16:03 Dose: 40 mg Documented by: Glucagon (Glucagon For Inj 1 Mg Vial) 1 mg SQ UD PRN; Protocol PRN Reason: Hypoglycemia Protocol Stop: 06/03/21 01:26 Glucose (Glucose 10 Tabs/Tube) 4 - 8 tabs PO UD PRN; Protocol PRN Reason: Hypoglycemia Protocol Stop: 06/03/21 01:26 Glucose (Glucose 40% Gel 15 Gm Tube) 15 - 30 gm PO UD PRN; Protocol PRN Reason: Hypoglycemia Protocol Stop: 06/03/21 01:26 Promethazine HCl 12.5 mg/ (Sodium Chloride) 50.5 mls @ 202 mls/hr IV Q6H PRN PRN Reason: Nausea And Vomiting Stop: 06/03/21 01:26 Hydrocortisone Sodium (Succinate 100 mg/ Syringe) 2 mls @ 4 mls/min IV Q6H [facility] Stop: 06/04/21 17:59 Last Admin: 05/08/21 06:56 Dose: 4 mls/min Documented by: Ampicillin Sodium/Sulbactam Sodium 1,500 mg/ Sodium Chloride 104 mls @ 200 mls/hr IV Q6H [facility]; Protocol Stop: 05/14/21 09:59 Last Infusion: 05/10/21 05:20 Dose: Infused Documented by: Insulin Aspart (Insulin Aspart 100 Units/Ml 3 Ml Pen) 0 units SC ACHS [facility] Stop: 06/03/21 01:59 Last Admin: 05/09/21 22:31 Dose: 6 units Documented by: Insulin Aspart (Insulin Aspart 100 Units/Ml 3 Ml Pen) 0 units SC TODAY@0000,0400 [facility] Stop: 06/08/21 00:00 Last Admin: 05/10/21 05:00 Dose: Not Given Documented by: Insulin Glargine (Insulin Glargine Solostar 100 Units/Ml 3 Ml Pen) 35 units SC QAM [facility] Stop: 06/09/21 08:59 Magnesium Chloride (Magnesium Chloride 64mg Delayed Rel Tab) 64 mg PO BID [facility] Stop: 06/03/21 20:59 Last Admin: 05/09/21 22:23 Dose: 64 mg Documented by: Menthol (Cough Drop (Sugar Free) Tiana 24 Tiana/1 Box) 1 tiana BUCCAL PRN PRN PRN Reason: Cough Stop: 06/05/21 16:07 Last Admin: 05/06/21 19:45 Dose: 1 tiana Documented by: Miscellaneous (Carbohydrates For Hypoglycemia ) 15 - 30 gm PO UD PRN PRN Reason: Hypoglycemia Protocol Stop: 06/03/21 01:26 Miscellaneous Information (Pharmacy Glycemic Mgmt Consult) 1 ea N/A UD PRN PRN Reason: Consult Stop: 06/07/21 08:08 Multivitamins (Multivitamin Tab) 1 tab PO DAILY [facility] Stop: 06/03/21 08:59 Last Admin: 05/09/21 08:48 Dose: 1 tab Documented by: Olanzapine (Olanzapine 10 Mg/2.1 Ml Sdv) 5 mg IM Q6H PRN PRN Reason: Anxiety/Agitation Stop: 06/06/21 03:01 Pantoprazole Sodium (Pantoprazole 40 Mg Tab) 40 mg PO BID [facility] Stop: 06/06/21 20:59 Last Admin: 05/09/21 22:22 Dose: 40 mg Documented by: Potassium Chloride (Potassium Chloride Crtab 20 Meq Tabcr) 20 meq PO BID [facility] Stop: 06/03/21 08:59 Last Admin: 05/09/21 22:27 Dose: 20 meq Documented by: Sotalol HCl (Sotalol Hcl 80 Mg Tab) 80 mg PO BID [facility] Stop: 06/03/21 01:59 Last Admin: 05/09/21 22:24 Dose: Not Given Documented by: Spironolactone (Spironolactone 12.5 Mg Tab) 12.5 mg PO DAILY [facility] Stop: 06/07/21 11:59 Last Admin: 05/08/21 12:52 Dose: 12.5 mg Documented by: Tramadol HCl (Tramadol Hcl 50 Mg Tablet) 25 - 50 mg PO Q4H PRN PRN Reason: Pain Stop: 06/03/21 01:26
[2021-05-10] MEDS: INSULIN GLARGINE SOLOSTAR 100 UNITS/ML 3 ML PEN SC SCH (08:51)
[2021-05-10] MEDS: POTASSIUM CHLORIDE CRTAB 20 MEQ TABCR PO SCH ×2 (08:57→21:21)
[2021-05-10] MEDS: FIDAXOMICIN 200 MG TAB PO SCH ×2 (08:58→21:21)
--- NOTE | 2021-05-10 09:34 | Pharmacy Report ---
Pharmacy Glycemic Short Note 2 - Date of Service May 10, 2021 - Glycemic Short BSG Results (Last 24 hours): 05/09/21 05/09/21 05/09/21 11:23 15:04 16:02 Glucose 194 H POC Glucose 225 H 207 H 05/09/21 05/09/21 05/09/21 16:02 19:59 21:28 Glucose POC Glucose 207 H 191 H 218 H 05/10/21 05/10/21 05/10/21 00:12 04:30 04:51 Glucose 138 H POC Glucose 175 H 134 H 05/10/21 07:10 Glucose POC Glucose 144 H OUTPATIENT ANTIDIABETIC REGIMEN: * Metformin 1gm PO BID * Dulaglutide SQ once weekly * A1c = 6.9% 03/23/21 ASSESSMENT: 05/10 * Pt has received 80 units of insulin over the past 24hrs * 35 units of basal with Lantus * 45 units of bolus with NovoLog * BSGs [id number] mg/dl * BSGs trending downwards nicely with current insulin orders. * Hydrocortisone remains on hold * Pt has received 35 units of basal on 05/08 & 05/09. Fasting BSG trending downwards nicely 256 --> 167 --> 144. However, patient received 2-5 units of correctional insulin overnight to achieve this. Will consider increasing basal to 40 units tomorrow if additional correctional insulin needed overnight tonight. * Current CF/CR is c/w TDD of ~ 80 units/day 05/09 * BSGs improving with changes made to insulin regimen yesterday * Fasting BSG improved this AM w/ 35 units basal on board, FBS 167. Will continue a weight based "low" stress Lantus dose as insulin sensitivity likely to improve given omission of steroids in last 24 hrs. Pt did not require basal insulin prior to hydrocortisone IV Q 6 hrs * Post-prandial BSG elevation observed pre-lunch today, will continue current Novolog CF/CR for now and reduce as BSGs improve 05/08 * Patient admitted for SOB, volume overload, pulm edema, possible ADHF, delirium, c diff colitis and worsening anemia from possible lower GIB * Glycemic control deteriorated with the addition of IV hydrocortisone. This therapy has been d/c'd. Last dose of Hydrocortisone 100mg given this AM. Would expect improved insulin sensitivity over the course of the day today. * Fasting BSG elevated this AM with no basal insulin on board. Will give single dose of Lantus based upon weight and "mild-moderate" stress. Single dose only as pt did not require basal insulin earlier this admission when not receiving steroid. * Novolog dose will be adjusted to "moderate-severe" stress level, until BSGs begin to trend down -will then lessen accordingly PLAN FOR INPATIENT GLYCEMIC CONTROL: * Hold outpatient oral diabetes medications (metformin + dulaglutide) * Basal insulin * Lantus 35 units SQ Q AM * Bolus insulin * NovoLog per scale ACHS or Q6hrs while NPO * Goal Range: Low 110 mg/dL - High 140 mg/dL * Correction Factor: 20 mg/dL/unit * Nutritional / Prandial insulin per carb ratio of 1 unit per 6 grams CHO consumed PLAN FOR DISCHARGE: * may resumed outpt regimen of metformin + dulaglutide on discharge (if no contraindications present) as last A1c at goal (A1c = 6.9%).
[2021-05-10] MEDS ORDERED: POTASSIUM CHLORIDE CRTAB 20 MEQ TABCR PO STA (11:56)
--- NOTE | 2021-05-10 12:00 | Cardiology Progress Note ---
Date of Service May 10, 2021 Assessment & Plan (1) Pulmonary edema: (2) Fluid overload: (3) Hypoalbuminemia: (4) Anemia: (5) Colitis: Plan: Given diagnosis of C. difficile colitis, he is off of hydrocortisone and now on Ampicillin and Dificid. Remains in sinus rhythm on chronic sotalol. Anticoagulation on hold due to anemia, had IVC filter for DVT earlier this hospital stay. Resume furosemide and spironolactone. Replace potassium. Per patient preference, remove Waldrop catheter. Admission and Anticipated Discharge Date Admission Date: May 03, 2021 Subjective Patient seen in follow-up. Telemetry reveals sinus rhythm. Diuretics held yesterday due to electrolyte abnormalities and relative hypotension. Both of these have improved. Physical Exam Physical Exam: Temp Pulse Resp BP Pulse Ox 36.5 C 76 18 118/70 95 05/10/21 07:39 05/10/21 08:00 05/10/21 07:39 05/10/21 07:39 05/10/21 07:39 Constitutional: WD/WN, vitals as above Respiratory: normal respiratory effort, lungs clear to auscultation Cardiovascular: Rate/Rhythm: regular rate Heart Sounds: no murmur Extremities: + edema (1+ lower extremity edema) Neurologic: PERRL, EOMI, accommodation nl, no face palsy, no dysarthria Results & Data ([facility]) Vital Signs (Past 12 Hours) Vital Signs Temp Pulse Pulse Resp BP Pulse Ox 05/10/21 08:00 76 05/10/21 07:39 36.5 C 80 18 118/70 95 05/10/21 04:45 36.4 C L 80 24 116/66 92 Diagnostic Findings CBC 05/10/21 Range/Units 04:30 Hgb 8.3 L (14.0-18.0) g/dL Hct 26.8 L (42-52) % Comprehensive Metabolic Panel 05/09/21 05/10/21 Range/Units 15:04 04:30 Sodium 138 140 (136-145) mmol/L Potassium 3.3 L D 3.8 D (3.5-5.1) mmol/L Chloride 105 107 (98-107) mmol/L Carbon Dioxide 29 29 (21-32) mmol/L BUN 9 7 (7-18) mg/dl Creatinine 0.90 0.74 (0.6-1.4) mg/dl Glucose 194 H 138 H (70-99) mg/dl Calcium 7.8 L 8.1 L (8.5-10.1) mg/dl Intake and Output 05/09/21 05/10/21 05/10/21 22:59 06:59 14:59 Intake Total 358 / 1616 254 / 1616 104 / 104 Output Total 217 / 662 301 / 662 Balance 141 / 954 -47 / 954 104 / 104 Intake: IV 208 / 616 104 / 616 104 / 104 Ampicillin/Sulbactam Sod 1,500 208 / 416 104 / 416 104 / 104 mg In 0.9 % Sodium Chloride 100 ml @ 200 mls/hr IV Q6H [facility] Rx# :[id number] Oral 150 / 1000 150 / 1000 Output: Urine Amount (Catheter) 210 / 650 300 / 650 Waldrop/Indwelling 210 / 650 300 / 650 # Bowel Movements Other: Weight 128 kg Weight Measurement Method Built in [facility] (1) Fluid overload Hypervolemia type: unspecified Qualified Code(s): E87.70 - Fluid overload, unspecified (2) Anemia Anemia type: other cause Other causes of anemia: other cause, not classified Qualified Code(s): D64.89 - Other specified anemias
[2021-05-10] MEDS: FUROSEMIDE 40 MG/4 ML VIAL IV SCH (13:06)
[2021-05-11] MEDS: INSULIN ASPART 100 UNITS/ML 3 ML PEN SC SCH ×6 (01:50→21:51)
[2021-05-11 04:28] LABS: Hematocrit (blood only) 25.7 % (42-52); Mean Corpuscular Hemoglobin 28.7 pg (25-34); Mean Corpuscular Hgb Conc 31.1 g/dL (32-36); Mean Corpuscular Volume 92.1 fL (80-100); Mean Platelet Volume 10.2 fL (7.4-10.4); Platelet Count 403 K/uL (130-400); RDW Coefficient of Variation 15.6 % (11.5-14.5); RDW Standard Deviation 53.2 fL (36.4-46.3); Red Blood Count 2.79 M/uL (4.7-6.1)
[2021-05-11 04:47] LABS: BUN Creatinine Ratio 8.4 (10-20); Calcium 8.1 mg/dl (8.5-10.1); Creatinine Clr Calc Pharmacy 126.3 ml/min; Est GFR (African American) 109.2 ml/min; Est GFR (Non-African American) 94.3 ml/min; Phosphorus 2.5 mg/dl (2.5-4.9); Potassium 4.2 mmol/L (3.5-5.1)
[2021-05-11 04:53] LABS: Magnesium 1.9 mg/dl (1.8-2.4)
--- NOTE | 2021-05-11 08:00 | Hospitalist Progress Note ---
Date of Service May 11, 2021 Assessment & Plan (1) SOB (shortness of breath): Plan: Acute respiratory failure with hypoxia Volume Overload Likely due to Hypoalbuminemia/Severe Protein Calorie Malnutrition, ? Diastolic heart failure --CXR:Interval development of mild interstitial pulmonary edema and small bilateral pleural effusions. 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 C. difficile colitis Started on Dificid Stool seems to be now more formed and less frequent Plan for 14-day course of treatment Follow-up with GI as outpatient arranged Acute metabolic encephalopathy - resolved Likely secondary to hypoxia DD: Delirium Possible aspiration -CT Head:No acute intracranial findings. No change in appearance of the brain. On Unasyn day #3 Re-orient frequently to minimize delirium No sign of infection - stop Unasyn (05/10) Symptomatic blood loss anemia Lower GI bleeding likely IBD H/O Colitis on mesalamine Intolerant to Mesalamine Was on Budesonide Monitor H&H and Transfuse PRBCs PRN And to be started on Remicade as outpatient Currently no plan for EGD colonoscopy as per GI Budesonide held Started on hydrocortisone (now on hold d/t c. diff) continue PPI as per GI Hemoglobin 7.7> 9.4>8.0 Continue PPI No signs of acute GI bleed Hydrocortisone held secondary to C diff infection Plan for outpatient follow-up with GI Acute left lower extremity DVT Venous Doppler: Thrombus identified within the left popliteal, posterior tibial, peroneal, and a superficial gastrocnemius vein. This is new from the prior study. S/P IVC filter Appreciate vascular surgery input Not a candidate for anticoagulation H/O recurrent GI bleeding Hypokalemia Replace electrolytes as needed HTN BP relatively low Lisinopril discontinued Proteinuria - 300mg in 24 hrs - obtain Cr/ prot. ratio as outpt and cont. to follow up - discussed w/ nephrology, may need outpt follow up w/ nephro if worsening CAD S/P stent On beta-tao, statin H/O Atrial flutter S/P cardioversion off Coumadin secondary to recurrent GI bleed Continue sotalol Hyperlipidemia on statin DM II on oral medications Last HBA1C: 6.1 last April 2021 Continue Insulin therapy DVT Px: SCDs Re: Recurrent GI bleed Code Status : Full code Disposition PT/OT prior to discharge Ms. Nessa Booker, contact #[phone]. Admission and Anticipated Discharge Date Admission Date: May 03, 2021 Subjective Patient is seen in follow-up of shortness of breath, pulmonary edema, GI bleed, DVT s/p IVC filter Currently pt is laying in bed, in no acute distress, reports feeling much better He is currently breathing comfortably on room air Reports his lower extremity edema is much improved Stool is also more formed and there is no blood per rectum reported Denies any chest pain, nausea, abdominal pain, bleeding per rectum. Hemoglobin stable Review of Systems Review of Systems: All systems reviewed & are unremarkable except as noted in Subjective Physical Exam Physical Exam: General Appearance: Obese M, no apparent distress Head: normocephalic, Atraumatic Eyes: normal inspection, EOMI Neck: supple, Trachea midline Respiratory/Chest: Normal breath sounds, CTA, mild crackles, no wheezing Cardiovascular: S1, S2, No murmur Abdomen/GI:Soft, Non tender, Bowel sounds present Extremities/Musculoskeletal:normal inspection, + mild B/L LE edema (much improved) Neurologic/Psych:AAOX3, no facial asymmetry, speech fluent, moves extremities Skin: normal color, warm Results & Data Results & Data ([facility]) Vital Signs (Past 12 Hours) Vital Signs Temp Pulse Resp BP Pulse Ox 05/11/21 00:39 36.5 C 85 20 110/74 94 05/10/21 20:00 36.4 C L 79 20 108/69 96 Laboratory Results 05/11/21 05/11/21 05/11/21 Range/Units 07:09 04:01 03:57 WBC (4.8-10.8) K/uL RBC (4.7-6.1) M/uL Hgb (14.0-18.0) g/dL Hct (42-52) % MCV (80-100) fL MCH (25-34) pg MCHC (32-36) g/dL RDW Std Deviation (36.4-46.3) fL RDW Coeff of Mychal (11.5-14.5) % Plt Count (130-400) K/uL MPV (7.4-10.4) fL Sodium 139 (136-145) mmol/L Potassium 4.2 (3.5-5.1) mmol/L Chloride 107 (98-107) mmol/L Carbon Dioxide 29 (21-32) mmol/L Anion Gap 3.0 (3-11) BUN 7 (7-18) mg/dl Creatinine 0.86 (0.6-1.4) mg/dl Est Cr Clr Drug Dosing 126.3 ml/min Est GFR ( Amer) 109.2 ml/min Est GFR (Non-Af Amer) 94.3 ml/min BUN/Creatinine Ratio 8.4 L (10-20) Glucose 157 H (70-99) mg/dl POC Glucose 145 H 169 H (70-99) mg/dl Calcium 8.1 L (8.5-10.1) mg/dl Phosphorus 2.5 (2.5-4.9) mg/dl Magnesium 1.9 (1.8-2.4) mg/dl Specimen Hemolysis 05/11/21 05/11/21 05/10/21 Range/Units 03:57 00:34 20:19 WBC 10.50 (4.8-10.8) K/uL RBC 2.79 L (4.7-6.1) M/uL Hgb 8.0 L (14.0-18.0) g/dL Hct 25.7 L (42-52) % MCV 92.1 (80-100) fL MCH 28.7 (25-34) pg MCHC 31.1 L (32-36) g/dL RDW Std Deviation 53.2 H (36.4-46.3) fL RDW Coeff of Mychal 15.6 H (11.5-14.5) % Plt Count 403 H (130-400) K/uL MPV 10.2 (7.4-10.4) fL Sodium (136-145) mmol/L Potassium (3.5-5.1) mmol/L Chloride (98-107) mmol/L Carbon Dioxide (21-32) mmol/L Anion Gap (3-11) BUN (7-18) mg/dl Creatinine (0.6-1.4) mg/dl Est Cr Clr Drug Dosing ml/min Est GFR ( Amer) ml/min Est GFR (Non-Af Amer) ml/min BUN/Creatinine Ratio (10-20) Glucose (70-99) mg/dl POC Glucose 159 H 135 H (70-99) mg/dl Calcium (8.5-10.1) mg/dl Phosphorus (2.5-4.9) mg/dl Magnesium (1.8-2.4) mg/dl Specimen Hemolysis 05/10/21 05/10/21 Range/Units 16:23 11:11 WBC (4.8-10.8) K/uL RBC (4.7-6.1) M/uL Hgb (14.0-18.0) g/dL Hct (42-52) % MCV (80-100) fL MCH (25-34) pg MCHC (32-36) g/dL RDW Std Deviation (36.4-46.3) fL RDW Coeff of Mychal (11.5-14.5) % Plt Count (130-400) K/uL MPV (7.4-10.4) fL Sodium (136-145) mmol/L Potassium (3.5-5.1) mmol/L Chloride (98-107) mmol/L Carbon Dioxide (21-32) mmol/L Anion Gap (3-11) BUN (7-18) mg/dl Creatinine (0.6-1.4) mg/dl Est Cr Clr Drug Dosing ml/min Est GFR ( Amer) ml/min Est GFR (Non-Af Amer) ml/min BUN/Creatinine Ratio (10-20) Glucose (70-99) mg/dl POC Glucose 113 H 150 H (70-99) mg/dl Calcium (8.5-10.1) mg/dl Phosphorus (2.5-4.9) mg/dl Magnesium (1.8-2.4) mg/dl Specimen Hemolysis Medications Administered Current Inpatient Medications Acetaminophen (Acetaminophen 325 Mg Tab) 650 mg PO Q4H PRN PRN Reason: Pain or Fever Stop: 06/03/21 01:26 Albuterol (Albut/Ipratrop 3mg/0.5mg Neb 3 Ml Vial) 3 ml NEB Q4 PRN PRN Reason: Shortness Of Breath Or Wheezing Stop: 06/06/21 18:44 Atorvastatin Calcium (Atorvastatin 40 Mg Tab) 40 mg PO DAILY BRITTANI Stop: 06/03/21 08:59 Last Admin: 05/10/21 08:50 Dose: 40 mg Documented by: Budesonide (Budesonide Ec 3 Mg Cap) 9 mg PO DAILY BRITTANI Stop: 06/03/21 08:59 Last Admin: 05/05/21 08:30 Dose: 9 mg Documented by: Dextrose (Dextrose 50% 50 Ml Syringe) 25 - 50 ml IV UD PRN; Protocol PRN Reason: Hypoglycemia Protocol Stop: 06/03/21 01:26 Fidaxomicin (Fidaxomicin 200 Mg Tab) 200 mg PO BID [facility] Stop: 05/17/21 23:44 Last Admin: 05/10/21 21:21 Dose: 200 mg Documented by: Furosemide (Furosemide 40 Mg/4 Ml Vial) 40 mg IV DAILY [facility] Stop: 06/09/21 11:59 Last Admin: 05/10/21 13:06 Dose: 40 mg Documented by: Glucagon (Glucagon For Inj 1 Mg Vial) 1 mg SQ UD PRN; Protocol PRN Reason: Hypoglycemia Protocol Stop: 06/03/21 01:26 Glucose (Glucose 10 Tabs/Tube) 4 - 8 tabs PO UD PRN; Protocol PRN Reason: Hypoglycemia Protocol Stop: 06/03/21 01:26 Glucose (Glucose 40% Gel 15 Gm Tube) 15 - 30 gm PO UD PRN; Protocol PRN Reason: Hypoglycemia Protocol Stop: 06/03/21 01:26 Promethazine HCl 12.5 mg/ (Sodium Chloride) 50.5 mls @ 202 mls/hr IV Q6H PRN PRN Reason: Nausea And Vomiting Stop: 06/03/21 01:26 Hydrocortisone Sodium (Succinate 100 mg/ Syringe) 2 mls @ 4 mls/min IV Q6H [facility] Stop: 06/04/21 17:59 Last Admin: 05/08/21 06:56 Dose: 4 mls/min Documented by: Insulin Aspart (Insulin Aspart 100 Units/Ml 3 Ml Pen) 0 units SC ACHS [facility] Stop: 06/03/21 01:59 Last Admin: 05/10/21 21:22 Dose: Not Given Documented by: Insulin Aspart (Insulin Aspart 100 Units/Ml 3 Ml Pen) 0 units SC TODAY@0000,0400 [facility] Stop: 06/08/21 00:00 Last Admin: 05/11/21 05:14 Dose: 1 units Documented by: Insulin Glargine (Insulin Glargine Solostar 100 Units/Ml 3 Ml Pen) 35 units SC QAM [facility] Stop: 06/09/21 08:59 Last Admin: 05/10/21 08:51 Dose: 35 units Documented by: Magnesium Chloride (Magnesium Chloride 64mg Delayed Rel Tab) 64 mg PO BID [facility] Stop: 06/03/21 20:59 Last Admin: 05/10/21 21:21 Dose: 64 mg Documented by: Menthol (Cough Drop (Sugar Free) Tiana 24 Tiana/1 Box) 1 tiana BUCCAL PRN PRN PRN Reason: Cough Stop: 06/05/21 16:07 Last Admin: 05/06/21 19:45 Dose: 1 tiana Documented by: Miscellaneous (Carbohydrates For Hypoglycemia ) 15 - 30 gm PO UD PRN PRN Reason: Hypoglycemia Protocol Stop: 06/03/21 01:26 Miscellaneous Information (Pharmacy Glycemic Mgmt Consult) 1 ea N/A UD PRN PRN Reason: Consult Stop: 06/07/21 08:08 Multivitamins (Multivitamin Tab) 1 tab PO DAILY [facility] Stop: 06/03/21 08:59 Last Admin: 05/10/21 08:50 Dose: 1 tab Documented by: Olanzapine (Olanzapine 10 Mg/2.1 Ml Sdv) 5 mg IM Q6H PRN PRN Reason: Anxiety/Agitation Stop: 06/06/21 03:01 Pantoprazole Sodium (Pantoprazole 40 Mg Tab) 40 mg PO BID [facility] Stop: 06/06/21 20:59 Last Admin: 05/10/21 21:21 Dose: 40 mg Documented by: Potassium Chloride (Potassium Chloride Crtab 20 Meq Tabcr) 20 meq PO BID [facility] Stop: 06/03/21 08:59 Last Admin: 05/10/21 21:21 Dose: 20 meq Documented by: Sotalol HCl (Sotalol Hcl 80 Mg Tab) 80 mg PO BID [facility] Stop: 06/03/21 01:59 Last Admin: 05/10/21 21:21 Dose: 80 mg Documented by: Spironolactone (Spironolactone 12.5 Mg Tab) 12.5 mg PO DAILY [facility] Stop: 06/07/21 11:59 Last Admin: 05/08/21 12:52 Dose: 12.5 mg Documented by: Tramadol HCl (Tramadol Hcl 50 Mg Tablet) 25 - 50 mg PO Q4H PRN PRN Reason: Pain Stop: 06/03/21 01:26
[2021-05-11] MEDS: SPIRONOLACTONE 12.5 MG TAB PO SCH (08:06)
[2021-05-11] MEDS: MAGNESIUM CHLORIDE 64MG DELAYED REL TAB PO SCH ×2 (08:06→21:45)
[2021-05-11] MEDS: PANTOprazole 40 MG TAB PO SCH ×2 (08:06→21:45)
[2021-05-11] MEDS: FIDAXOMICIN 200 MG TAB PO SCH ×2 (08:06→21:45)
[2021-05-11] MEDS: ATORVASTATIN 40 MG TAB PO SCH (08:06)
[2021-05-11] MEDS: SOTALOL HCL 80 MG TAB PO SCH ×2 (08:06→21:45)
[2021-05-11] MEDS: MULTIVITAMIN TAB PO SCH (08:06)
[2021-05-11] MEDS: INSULIN GLARGINE SOLOSTAR 100 UNITS/ML 3 ML PEN SC SCH (08:07)
[2021-05-11] MEDS: FUROSEMIDE 40 MG/4 ML VIAL IV SCH (08:07)
[2021-05-11] MEDS: POTASSIUM CHLORIDE CRTAB 20 MEQ TABCR PO SCH ×2 (08:09→21:45)
--- NOTE | 2021-05-11 09:21 | Gastroenterology Progress Note ---
Date of Service May 11, 2021 Assessment & Plan (1) C. difficile colitis: Plan: Most likely the findings of colitis on colonoscopy were secondary to C-diff. Finish 14 day course of Dificid. If diarrhea recurs, would tx with vancomycin. Avoid steroids, antibiotics. (no plans for tx with Remicade, Budesonide or mesalamine). Will f/u in GI clinic. Our office will reach out to the pt to arrange OP visit. Admission and Anticipated Discharge Date Admission Date: May 03, 2021 Supervising Physician Co-Signing Physician Notes I performed a history and physical examination of the patient today, including specifically on physical exam - soft abdomen. I have discussed the patient's management with the advanced practitioner. Please refer to the nurse practitioner's note for the documented findings and plan of care. Patient is having well formed BM today and he is happy about it. Currently on Dificid for CDI. It is not really clear that he has UC but it remains on the list. At this point will complete the treatment for CDI, if diarrhea recurs afterwards then will treat with PO Vancomycin and consider starting him Xeljanz for UC. (defer Anti- TNF due to CHF). Will follow him up as OP. Avoid steroids and ABx. Hold PPI if no Hx of PUD in the past. Recall GI if needed. Subjective 61 yr old male. Recent UC dx, was tx with budesonide. Tried mesalamine - bad rxn. Has CHF admitted with fluid overload Tx here with IV steroids then DC'ed when C-diff was (+). C-diff (+) here on 05/07 (of note C-diff was negative in the OP setting on 04/19). Tx with Dificid. was also on amipicillin for a few days as concern for pneumonia but dc'ed yesterday. About 4 semi formed BMs in the past 24 hrs. Feeling well. Review of Systems Review of Systems: ROS: Gen: + weakness much improved in the past 2 days No fevers, + ongoing weight loss about 60 lbs in the past year then regain with fluid prior to admission Eyes: No eye redness, or pain, no recent vision changes Resp: No SOB, no cough Cardio: + lower leg edema, much improved. No palpitations/irregular beats, no chest pain GI: No abdominal pain, no nausea/vomiting : Denies pain on urination Skin: No jaundice, itching or new rashes Physical Exam Constitutional: well developed, + ill appearing and cooperative Eyes: PERRL, conjunctivae normal, anicteric sclerae Neck: trachea midline, no thyromegaly Respiratory: normal respiratory effort, lungs clear to auscultation Cardiovascular: Rate/Rhythm: regular rate and regular rhythm Extremities: + edema (1+ bilat lower leg edema) Gastrointestinal (Abdomen): normal bowel sounds, soft, nontender, no hepatosplenomegaly Skin: no rashes, warm and dry normal turgor Neurologic: PERRL, EOMI, accommodation nl, no face palsy, no dysarthria awake; not confused Psychiatric: A+Ox3, euthymic affect Orientation: alert, oriented x 3 and cooperative Results & Data ([facility]) Vital Signs (Past 12 Hours) Vital Signs Temp Pulse Resp BP Pulse Ox 05/11/21 08:00 36.7 C 80 18 117/72 95 05/11/21 00:39 36.5 C 85 20 110/74 94 Laboratory Results WBC 10, Hb 8, HCT 25, PLT S4 3, NA 139, K4.2, CL 107, CO2 29, BUN 7, CR 0.86, glucose 157 Diagnostic Findings OP Colonoscopy 04/23/21: - Ulcerated, bleeding, Nguyen colitis. Biopsied. - The examination was otherwise normal on direct and retroflexion views. OP EGD normal 04/23/21 - The examination was otherwise normal on direct and retroflexion views. Path: A. Small bowel, duodenum, biopsies: Long intact villi with no significant pathologic change No parasitic organisms are identified B. Colon, random, biopsies: Multifocal moderate chronic active colitis No dysplasia is seen Medications Administered On Dificid
--- NOTE | 2021-05-11 10:58 | Cardiology Progress Note ---
Date of Service May 11, 2021 Assessment & Plan (1) Pulmonary edema: (2) Fluid overload: (3) Hypoalbuminemia: (4) Anemia: (5) Colitis: Plan: Given diagnosis of C. difficile colitis, he is off of hydrocortisone and now on Ampicillin and Dificid. Remains in sinus rhythm on chronic sotalol. Anticoagulation on hold due to anemia, had IVC filter for DVT earlier this hospital stay. Waldrop catheter removed 05/10 . Renal function and electrolytes stable. Furosemide 40 mg IV this am, 05/11, then transition to torsemide 20 mg 05/12 to ensure he will tolerate this dose from a BP standpoint prior to discharge. Admission and Anticipated Discharge Date Admission Date: May 03, 2021 Subjective Patient seen in cardiology follow up. SR in the 70s noted on telemetry. Feels overall improved compared to arrival to hospital 1 week ago and he state he is starting to feel ready for discharge. Physical Exam Physical Exam: Temp Pulse Resp BP Pulse Ox 36.7 C 80 18 117/72 95 05/11/21 08:00 05/11/21 08:00 05/11/21 08:00 05/11/21 08:00 05/11/21 08:00 Constitutional: WD/WN, vitals as above + ill appearing; no acute distress Respiratory: normal respiratory effort, lungs clear to auscultation Cardiovascular: Rate/Rhythm: regular rate and regular rhythm Heart Sounds: normal S1 and normal S2; no murmur Extremities: + edema (1+ lower extremity edema) Gastrointestinal (Abdomen): normal bowel sounds, soft, nontender, no hepatosplenomegaly Neurologic: PERRL, EOMI, accommodation nl, no face palsy, no dysarthria Results & Data ([facility]) Vital Signs (Past 12 Hours) Vital Signs Temp Pulse Resp BP Pulse Ox 05/11/21 08:00 36.7 C 80 18 117/72 95 05/11/21 00:39 36.5 C 85 20 110/74 94 (1) Fluid overload Hypervolemia type: unspecified Qualified Code(s): E87.70 - Fluid overload, unspecified (2) Anemia Anemia type: other cause Other causes of anemia: other cause, not classified Qualified Code(s): D64.89 - Other specified anemias
[2021-05-12] MEDS: INSULIN ASPART 100 UNITS/ML 3 ML PEN SC SCH ×5 (00:45→17:13)
[2021-05-12 05:57] LABS: Hematocrit (blood only) 25.4 % (42-52); Mean Corpuscular Hemoglobin 28.5 pg (25-34); Mean Corpuscular Hgb Conc 31.5 g/dL (32-36); Mean Corpuscular Volume 90.4 fL (80-100); Mean Platelet Volume 10.1 fL (7.4-10.4); Platelet Count 379 K/uL (130-400); RDW Coefficient of Variation 15.5 % (11.5-14.5); RDW Standard Deviation 50.5 fL (36.4-46.3); Red Blood Count 2.81 M/uL (4.7-6.1); White Blood Count 10.32 K/uL (4.8-10.8)
[2021-05-12 06:24] LABS: Calcium 8.1 mg/dl (8.5-10.1); Creatinine Clr Calc Pharmacy 150.4 ml/min; Est GFR (African American) 118.2 ml/min
[2021-05-12] MEDS: ATORVASTATIN 40 MG TAB PO SCH (08:03)
[2021-05-12] MEDS: MAGNESIUM CHLORIDE 64MG DELAYED REL TAB PO SCH (08:04)
[2021-05-12] MEDS: PANTOprazole 40 MG TAB PO SCH (08:04)
[2021-05-12] MEDS: MULTIVITAMIN TAB PO SCH (08:04)
[2021-05-12] MEDS: SOTALOL HCL 80 MG TAB PO SCH (08:05)
[2021-05-12] MEDS: SPIRONOLACTONE 12.5 MG TAB PO SCH (08:05)
[2021-05-12] MEDS: FIDAXOMICIN 200 MG TAB PO SCH (08:09)
[2021-05-12] MEDS: POTASSIUM CHLORIDE CRTAB 20 MEQ TABCR PO SCH (08:09)
--- NOTE | 2021-05-12 08:37 | Hospitalist Progress Note ---
Date of Service May 12, 2021 Assessment & Plan (1) SOB (shortness of breath): Plan: Acute respiratory failure with hypoxia Volume Overload Likely due to Hypoalbuminemia/Severe Protein Calorie Malnutrition, ? Diastolic heart failure --CXR:Interval development of mild interstitial pulmonary edema and small bilateral pleural effusions. Fluid restriction Monitor I/Os Raveler Consulted Received Albumin, Lasix Appreciate Cardiology Input Monitor volume status Chest x-ray showed moderate pulmonary edema on 05/07 Monitor electrolytes and replace as needed Continued Lasix 40mg BID - then on hold d/t hypokalemia, now (05/10) resumed spironolactone resumed Currently on RA Repeat chest x-ray -much improved pulmonary edema 05/11 -IV Lasix today, plan to switch to torsemide tomorrow. 05/12 -switched to torsemide 20 mg daily, tolerating well, plan to discharge home today C. difficile colitis Started on Dificid Stool seems to be now more formed and less frequent Plan for 14-day course of treatment Follow-up with GI as outpatient arranged Symptomatic blood loss anemia Lower GI bleeding initially thought to be likely IBD H/O Colitis on mesalamine, intolerant to Mesalamine Was on Budesonide Monitor H&H and Transfuse PRBCs PRN Plan was to be started on Remicade as outpatient Currently no plan for EGD colonoscopy as per GI inpt Started on hydrocortisone (now on hold d/t c. diff) continue PPI as per GI Hemoglobin 7.7> 9.4>8.0 Continue PPI No signs of acute GI bleed Hydrocortisone held secondary to C diff infection Treat c. diff Plan for outpatient follow-up with GI Acute left lower extremity DVT Venous Doppler: Thrombus identified within the left popliteal, posterior tibial, peroneal, and a superficial gastrocnemius vein. This is new from the prior study. S/P IVC filter Appreciate vascular surgery input Not a candidate for anticoagulation H/O recurrent GI bleeding Acute metabolic encephalopathy - resolved Likely secondary to hypoxia DD: Delirium Possible aspiration -CT Head:No acute intracranial findings. No change in appearance of the brain. On Unasyn day #3 Re-orient frequently to minimize delirium No sign of infection - stop Unasyn (05/10) Hypokalemia Replace electrolytes as needed HTN BP relatively low Lisinopril discontinued Proteinuria - 300mg in 24 hrs - obtain Cr/ prot. ratio as outpt and cont. to follow up - discussed w/ nephrology, may need outpt follow up w/ nephro if worsening CAD S/P stent On beta-tao, statin H/O Atrial flutter S/P cardioversion off Coumadin secondary to recurrent GI bleed Continue sotalol Hyperlipidemia on statin DM II on oral medications Last HBA1C: 6.1 last April 2021 Continue Insulin therapy DVT Px: SCDs Re: Recurrent GI bleed Code Status : Full code Disposition PT/OT prior to discharge Ms. Nessa Booker, contact #[phone]. Admission and Anticipated Discharge Date Admission Date: May 03, 2021 Subjective Patient is seen in follow-up of shortness of breath, pulmonary edema, GI bleed, DVT s/p IVC filter Currently pt is laying in bed, in no acute distress, reports feeling well and inquiring about going home He is currently breathing comfortably on room air Reports his lower extremity edema is much improved Stool is also formed and there is no blood in the stool reported Denies any chest pain, nausea, abdominal pain, bleeding per rectum. Hemoglobin stable Review of Systems Review of Systems: All systems reviewed & are unremarkable except as noted in Subjective Physical Exam Physical Exam: General Appearance: Obese M, no apparent distress Head: normocephalic, Atraumatic Eyes: normal inspection, EOMI Neck: supple, Trachea midline Respiratory/Chest: Normal breath sounds, CTA, mild crackles, no wheezing Cardiovascular: S1, S2, No murmur Abdomen/GI:Soft, Non tender, Bowel sounds present Extremities/Musculoskeletal:normal inspection, + mild B/L LE edema (much improved) Neurologic/Psych:AAOX3, no facial asymmetry, speech fluent, moves extremities Skin: normal color, warm Results & Data Results & Data ([facility]) Vital Signs (Past 12 Hours) Vital Signs Temp Pulse Pulse Resp BP Pulse Ox 05/12/21 07:28 75 05/12/21 07:19 37.0 C 77 18 100/46 L 94 05/12/21 04:24 36.7 C 79 18 100/61 94 05/11/21 23:54 36.8 C 77 24 108/67 94 Laboratory Results 05/12/21 05/12/21 05/12/21 Range/Units 07:22 05:33 05:33 WBC 10.32 (4.8-10.8) K/uL RBC 2.81 L (4.7-6.1) M/uL Hgb 8.0 L (14.0-18.0) g/dL Hct 25.4 L (42-52) % MCV 90.4 (80-100) fL MCH 28.5 (25-34) pg MCHC 31.5 L (32-36) g/dL RDW Std Deviation 50.5 H (36.4-46.3) fL RDW Coeff of Mychal 15.5 H (11.5-14.5) % Plt Count 379 (130-400) K/uL MPV 10.1 (7.4-10.4) fL Sodium 140 (136-145) mmol/L Potassium 4.0 (3.5-5.1) mmol/L Chloride 109 H (98-107) mmol/L Carbon Dioxide 29 (21-32) mmol/L Anion Gap 2.0 L (3-11) BUN 6 L (7-18) mg/dl Creatinine 0.71 (0.6-1.4) mg/dl Est Cr Clr Drug Dosing 150.4 ml/min Est GFR ( Amer) 118.2 ml/min Est GFR (Non-Af Amer) 102.0 ml/min BUN/Creatinine Ratio 9.0 L (10-20) Glucose 85 (70-99) mg/dl POC Glucose 79 (70-99) mg/dl Calcium 8.1 L (8.5-10.1) mg/dl 05/12/21 05/12/21 05/11/21 Range/Units 04:22 00:43 21:00 WBC (4.8-10.8) K/uL RBC (4.7-6.1) M/uL Hgb (14.0-18.0) g/dL Hct (42-52) % MCV (80-100) fL MCH (25-34) pg MCHC (32-36) g/dL RDW Std Deviation (36.4-46.3) fL RDW Coeff of Mychal (11.5-14.5) % Plt Count (130-400) K/uL MPV (7.4-10.4) fL Sodium (136-145) mmol/L Potassium (3.5-5.1) mmol/L Chloride (98-107) mmol/L Carbon Dioxide (21-32) mmol/L Anion Gap (3-11) BUN (7-18) mg/dl Creatinine (0.6-1.4) mg/dl Est Cr Clr Drug Dosing ml/min Est GFR ( Amer) ml/min Est GFR (Non-Af Amer) ml/min BUN/Creatinine Ratio (10-20) Glucose (70-99) mg/dl POC Glucose 93 127 H 106 H (70-99) mg/dl Calcium (8.5-10.1) mg/dl 05/11/21 05/11/21 Range/Units 16:09 10:57 WBC (4.8-10.8) K/uL RBC (4.7-6.1) M/uL Hgb (14.0-18.0) g/dL Hct (42-52) % MCV (80-100) fL MCH (25-34) pg MCHC (32-36) g/dL RDW Std Deviation (36.4-46.3) fL RDW Coeff of Mychal (11.5-14.5) % Plt Count (130-400) K/uL MPV (7.4-10.4) fL Sodium (136-145) mmol/L Potassium (3.5-5.1) mmol/L Chloride (98-107) mmol/L Carbon Dioxide (21-32) mmol/L Anion Gap (3-11) BUN (7-18) mg/dl Creatinine (0.6-1.4) mg/dl Est Cr Clr Drug Dosing ml/min Est GFR ( Amer) ml/min Est GFR (Non-Af Amer) ml/min BUN/Creatinine Ratio (10-20) Glucose (70-99) mg/dl POC Glucose 101 H 118 H (70-99) mg/dl Calcium (8.5-10.1) mg/dl Medications Administered Current Inpatient Medications Acetaminophen (Acetaminophen 325 Mg Tab) 650 mg PO Q4H PRN PRN Reason: Pain or Fever Stop: 06/03/21 01:26 Albuterol (Albut/Ipratrop 3mg/0.5mg Neb 3 Ml Vial) 3 ml NEB Q4 PRN PRN Reason: Shortness Of Breath Or Wheezing Stop: 06/06/21 18:44 Atorvastatin Calcium (Atorvastatin 40 Mg Tab) 40 mg PO DAILY [facility]ANI Stop: 06/03/21 08:59 Last Admin: 05/12/21 08:03 Dose: 40 mg Documented by: Budesonide (Budesonide Ec 3 Mg Cap) 9 mg PO DAILY [facility] Stop: 06/03/21 08:59 Last Admin: 05/05/21 08:30 Dose: 9 mg Documented by: Dextrose (Dextrose 50% 50 Ml Syringe) 25 - 50 ml IV UD PRN; Protocol PRN Reason: Hypoglycemia Protocol Stop: 06/03/21 01:26 Fidaxomicin (Fidaxomicin 200 Mg Tab) 200 mg PO BID [facility] Stop: 05/17/21 23:44 Last Admin: 05/12/21 08:09 Dose: 200 mg Documented by: Glucagon (Glucagon For Inj 1 Mg Vial) 1 mg SQ UD PRN; Protocol PRN Reason: Hypoglycemia Protocol Stop: 06/03/21 01:26 Glucose (Glucose 10 Tabs/Tube) 4 - 8 tabs PO UD PRN; Protocol PRN Reason: Hypoglycemia Protocol Stop: 06/03/21 01:26 Glucose (Glucose 40% Gel 15 Gm Tube) 15 - 30 gm PO UD PRN; Protocol PRN Reason: Hypoglycemia Protocol Stop: 06/03/21 01:26 Promethazine HCl 12.5 mg/ (Sodium Chloride) 50.5 mls @ 202 mls/hr IV Q6H PRN PRN Reason: Nausea And Vomiting Stop: 06/03/21 01:26 Hydrocortisone Sodium (Succinate 100 mg/ Syringe) 2 mls @ 4 mls/min IV Q6H [facility] Stop: 06/04/21 17:59 Last Admin: 05/08/21 06:56 Dose: 4 mls/min Documented by: Insulin Aspart (Insulin Aspart 100 Units/Ml 3 Ml Pen) 0 units SC ACHS [facility] Stop: 06/03/21 01:59 Last Admin: 05/12/21 08:01 Dose: 6 units Documented by: Insulin Aspart (Insulin Aspart 100 Units/Ml 3 Ml Pen) 0 units SC TODAY@0000,0400 [facility] Stop: 06/08/21 00:00 Last Admin: 05/12/21 04:36 Dose: Not Given Documented by: Insulin Glargine (Insulin Glargine Solostar 100 Units/Ml 3 Ml Pen) 25 units SC QAM [facility] Stop: 06/09/21 08:59 Last Admin: 05/12/21 08:01 Dose: 25 units Documented by: Magnesium Chloride (Magnesium Chloride 64mg Delayed Rel Tab) 64 mg PO BID [facility] Stop: 06/03/21 20:59 Last Admin: 05/12/21 08:04 Dose: 64 mg Documented by: Menthol (Cough Drop (Sugar Free) Tiana 24 Tiana/1 Box) 1 tiana BUCCAL PRN PRN PRN Reason: Cough Stop: 06/05/21 16:07 Last Admin: 05/06/21 19:45 Dose: 1 tiana Documented by: Miscellaneous (Carbohydrates For Hypoglycemia ) 15 - 30 gm PO UD PRN PRN Reason: Hypoglycemia Protocol Stop: 06/03/21 01:26 Miscellaneous Information (Pharmacy Glycemic Mgmt Consult) 1 ea N/A UD PRN PRN Reason: Consult Stop: 06/07/21 08:08 Multivitamins (Multivitamin Tab) 1 tab PO DAILY [facility] Stop: 06/03/21 08:59 Last Admin: 05/12/21 08:04 Dose: 1 tab Documented by: Olanzapine (Olanzapine 10 Mg/2.1 Ml Sdv) 5 mg IM Q6H PRN PRN Reason: Anxiety/Agitation Stop: 06/06/21 03:01 Pantoprazole Sodium (Pantoprazole 40 Mg Tab) 40 mg PO BID [facility]ANI Stop: 06/06/21 20:59 Last Admin: 05/12/21 08:04 Dose: 40 mg Documented by: Potassium Chloride (Potassium Chloride Crtab 20 Meq Tabcr) 20 meq PO BID [facility] Stop: 06/03/21 08:59 Last Admin: 05/12/21 08:09 Dose: 20 meq Documented by: Sotalol HCl (Sotalol Hcl 80 Mg Tab) 80 mg PO BID [facility] Stop: 06/03/21 01:59 Last Admin: 05/12/21 08:05 Dose: 80 mg Documented by: Spironolactone (Spironolactone 12.5 Mg Tab) 12.5 mg PO DAILY [facility] Stop: 06/07/21 11:59 Last Admin: 05/12/21 08:05 Dose: 12.5 mg Documented by: Torsemide (Torsemide 10 Mg Tab) 20 mg PO QAM [facility] Stop: 06/11/21 08:59 Last Admin: 05/12/21 08:06 Dose: 20 mg Documented by: Tramadol HCl (Tramadol Hcl 50 Mg Tablet) 25 - 50 mg PO Q4H PRN PRN Reason: Pain Stop: 06/03/21 01:26
[2021-05-12] MEDS ORDERED: INSULIN GLARGINE SOLOSTAR 100 UNITS/ML 3 ML PEN SC SCH (09:00)
[2021-05-12] MEDS ORDERED: TORSEMIDE 10 MG TAB PO SCH (09:00)
--- NOTE | 2021-05-12 14:42 | Cardiology Progress Note ---
Date of Service May 12, 2021 Assessment & Plan (1) Pulmonary edema: (2) Fluid overload: (3) Hypoalbuminemia: (4) Anemia: (5) Colitis: Plan: Continue torsemide 20 mg daily. Given diagnosis of C. difficile colitis, he is off of hydrocortisone and now on Ampicillin and Dificid. Remains in sinus rhythm on chronic sotalol. Anticoagulation on hold due to anemia, had IVC filter for DVT earlier this hospital stay. Renal function and electrolytes stable. No further inpatient cardiovascular testing or intervention. Admission and Anticipated Discharge Date Admission Date: May 03, 2021 Subjective Patient seen examined the bedside. Anxious for discharge. Tolerating oral torsemide. Fluid balance -875 cc. Remains borderline hypotensive. Telemetry reveals sinus rhythm. Review of Systems Review of Systems: All systems reviewed & are unremarkable except as noted in Subjective Physical Exam Constitutional: well nourished; no acute distress Cardiovascular: Rate/Rhythm: regular rate and regular rhythm Heart Sounds: normal S1 and normal S2; no murmur Vessels: radial pulses present; no JVD and no carotid bruit Extremities: + edema (1-2+ bilateral pretibial edema) Gastrointestinal (Abdomen): Inspection/Auscultation: abdomen normal to inspection and normal bowel sounds; abdomen not distended Percussion/Palpation: abdomen soft; abdomen nontender, no guarding and abdomen not rigid Neurologic: CN's II-XI intact bilaterally and moves all extremities; no focal motor deficits Motor/Sensory: no tremor Psychiatric: Orientation: alert and oriented x 3 Results & Data ([facility]) Vital Signs (Past 12 Hours) Vital Signs Temp Pulse Pulse Resp BP Pulse Ox 05/12/21 11:29 36.7 C 82 18 97/64 L 96 05/12/21 07:28 75 05/12/21 07:19 37.0 C 77 18 100/46 L 94 05/12/21 04:24 36.7 C 79 18 100/61 94 (1) Fluid overload Hypervolemia type: unspecified Qualified Code(s): E87.70 - Fluid overload, unspecified (2) Anemia Anemia type: other cause Other causes of anemia: other cause, not classified Qualified Code(s): D64.89 - Other specified anemias
--- NOTE | 2021-05-12 14:55 | Pharmacy Report ---
Pharmacy Glycemic Short Note 2 - Date of Service May 12, 2021 - Glycemic Short BSG Results (Last 24 hours): 05/11/21 05/11/21 05/12/21 16:09 21:00 00:43 Glucose POC Glucose 101 H 106 H 127 H 05/12/21 05/12/21 05/12/21 04:22 05:33 07:22 Glucose 85 POC Glucose 93 79 05/12/21 11:22 Glucose POC Glucose 134 H OUTPATIENT ANTIDIABETIC REGIMEN: * Metformin 1gm PO BID * Dulaglutide SC once weekly * A1c = 6.9% 03/23/21 ASSESSMENT: 05/12: * BSGs well controlled yesterday with patient getting 35 units Lantus and 20 units Novolog * BSGs: [phone] mg/dL * Fasting BSG was 79 mg/dL this AM * Reduced basal dose * No other changes 05/10: * Pt has received 80 units of insulin over the past 24hrs * 35 units of basal with Lantus * 45 units of bolus with NovoLog * BSGs [phone] mg/dl * BSGs trending downwards nicely with current insulin orders. * Hydrocortisone remains on hold * Pt has received 35 units of basal on 05/08 & 05/09. Fasting BSG trending downwards nicely 256 --> 167 --> 144. However, patient received 2-5 units of correctional insulin overnight to achieve this. Will consider increasing basal to 40 units tomorrow if additional correctional insulin needed overnight tonight. * Current CF/CR is c/w TDD of ~ 80 units/day PLAN FOR INPATIENT GLYCEMIC CONTROL: * Hold outpatient oral diabetes medications (metformin + dulaglutide) * Basal insulin - decreased * Lantus 25 units SC AM * Bolus insulin * NovoLog per scale ACHS or Q6hrs while NPO * Goal Range: Low 110 mg/dL - High 140 mg/dL * Correction Factor: 20 mg/dL/unit * Nutritional / Prandial insulin per carb ratio of 1 unit per 6 grams CHO consumed PLAN FOR DISCHARGE: * may resumed outpt regimen of metformin + dulaglutide on discharge (if no contraindications present) as last A1c at goal (A1c = 6.9%).
--- NOTE | 2021-05-12 15:07 | Discharge Summary ---
Date of Service May 12, 2021 Admission HPI Per Admitting Provider History obtained from patient, family, and records. Medical history significant for chronic systolic/diastolic heart failure secondary to ischemic cardiomyopathy (EF 45 to 50%, TTE 2020), CAD post stent, atrial flutter status post cardioversion off Coumadin secondary to recurrent GI bleed, hypertension, hyperlipidemia, DM2 on oral medications, mild ulcerative colitis on budesonide, chronic anemia (baseline hemoglobin of 8-9), past tobacco abuse. Last confinement March 29 to April 09, 2021 for L GIB. Sigmoidoscopy revealed mild diffuse colitis without active bleeding. Pathology showed mild chronic colitis with moderate activity. Patient discharged on budesonide. 2 weeks ago, patient started by GI provider on mesalamine for ulcerative colitis. Dizziness after taking mesalamine as per patient. Patient seen at the ED 9 days ago for lightheadedness, abdominal cramping with lower GI bleed attributed to new mesalamine Rx. Hemoglobin noted to be 8.1 at the ER. Patient discharged home. Patient reverted back to budesonide Rx since stopping mesalamine. Coumadin on hold since ER visit. No GI bleed at home since as per patient/family. Worsening fatigue, exertional shortness of breath over the last few weeks as per patient/. Increase leg swelling/fluid retention up to the groin. Patient denies chest pain/belly pain. Patient compliant with home medications. SBP 90s, weight gain of about 10 pounds as per outpatient cardiology note today. Patient directed to the ER for evaluation. Medical Historyas above 2020 EGD normal 2020 colonoscopy showed pancolitis Surgical History :Tonsillectomy/adenoidectomy, ulnar nerve revision Family History : DM, heart disease Personal/Social history : Past tobacco abuse, occasional EtOH intake, currently on workers Compensation due to back issues Admission Exam Per Admitting Provider GENERAL: Comfortable, slightly anxious, morbidly obese, no respiratory distress SKIN: Pallor,, warm HEENT: Pale palpebral conjunctivae, no ptosis, dry buccal mucosa NECK : Supple, no tenderness CHEST : Decreased breath sounds, no tenderness HEART : RRR, no obvious murmurs ABDOMEN: Some distention, nontender RECTAL : Intact sphincter, dark red stool (FOBT positive) EXTREMITIES : Bilateral LE swelling, minimal LE tenderness, no other conspicuous deformities noted NEUROLOGIC : Coherent, no facial asymmetry, no other gross focality Principal Diagnosis Pulmonary edema, fluid overload Hypoalbuminemia Acute LLE DVT, status post IVC filter C. difficile colitis Acute GI bleed Discharge Exam General Appearance: Obese M, no apparent distress Head: normocephalic, Atraumatic Eyes: normal inspection, EOMI Neck: supple, Trachea midline Respiratory/Chest: Normal breath sounds, CTA, mild crackles, no wheezing Cardiovascular: S1, S2, No murmur Abdomen/GI:Soft, Non tender, Bowel sounds present Extremities/Musculoskeletal:normal inspection, + mild B/L LE edema (much improved) Neurologic/Psych:AAOX3, no facial asymmetry, speech fluent, moves extremities Skin: normal color, warm Discharge Data Allergies Allergy/AdvReac Type Severity Reaction Status Date / Time gabapentin Allergy Mild Emotional Verified 04/24/21 16:00 changes (makes cry) Sulfa (Sulfonamide Allergy Mild Rash Verified 04/24/21 16:00 Antibiotics) cyclobenzaprine Allergy Unknown ON [facility] MED Verified 04/24/21 16:00 LIST mesalamine AdvReac Mild dizziness Verified 05/04/21 03:05 Consultations 05/04/21 01:27 Consult Cardiology Routine 05/04/21 06:12 Consult Gastroenterology Routine 05/04/21 07:47 Consult Vascular Surgery Routine Procedures Performed Operation Date: 05/04/21 19:15 Actual Procedures p Insertion of Inferior Vena Cava Filter, Right Jugular Approach, Ultrasound Localization of Right Jugular Vein, Fluoroscopy for Positioning.Moderate Sedation [id number] (Right) - Camden López MD Operation Date: 05/07/21 16:00 <No data on this case meets the specified criteria> Operation Date: 05/07/21 16:30 <No data on this case meets the specified criteria> Ordered Studies 05/03/21 21:20 US venous doppler LE BI Urgent FINDINGS: There is normal compressibility, flow, and augmentation within the right lower extremity deep venous system. Thrombus identified within the left popliteal, posterior tibial, peroneal, and a superficial gastrocnemius vein. This is new from the prior study. IMPRESSION: 1. No DVT within the right lower extremity. 2. There is acute DVT within the left lower extremity as described above. 05/04/21 08:26 EV IVC filter placement Routine 05/07/21 07:19 CT head/brain wo con Urgent IMPRESSION: 1. No acute intracranial findings. No change in appearance of the brain. 2. Mild mucosal thickening and secretions within the left maxillary sinus, similar to prior CT. Hospital Course (1) SOB (shortness of breath): Acute respiratory failure with hypoxia Volume Overload Likely due to Hypoalbuminemia/Severe Protein Calorie Malnutrition, ? Diastolic heart failure --CXR:Interval development of mild interstitial pulmonary edema and small bilateral pleural effusions. Fluid restriction Monitor I/Os Head Of Sales Promotion Consulted Received Albumin, Lasix Appreciate Cardiology Input Monitor volume status Chest x-ray showed moderate pulmonary edema on 05/07 Monitor electrolytes and replace as needed Continued Lasix 40mg BID - then on hold d/t hypokalemia, now (05/10) resumed spironolactone resumed Currently on RA Repeat chest x-ray -much improved pulmonary edema 05/11 -IV Lasix today, plan to switch to torsemide tomorrow. 05/12 -switched to torsemide 20 mg daily, tolerating well, plan to discharge home today C. difficile colitis Started on Dificid Stool seems to be now more formed and less frequent Plan for 14-day course of treatment Follow-up with GI as outpatient arranged Symptomatic blood loss anemia Lower GI bleeding initially thought to be likely IBD H/O Colitis on mesalamine, intolerant to Mesalamine Was on Budesonide Monitor H&H and Transfuse PRBCs PRN Plan was to be started on Remicade as outpatient Currently no plan for EGD colonoscopy as per GI inpt Started on hydrocortisone (now on hold d/t c. diff) continue PPI as per GI Hemoglobin 7.7> 9.4>8.0 Continue PPI No signs of acute GI bleed Hydrocortisone held secondary to C diff infection Treat c. diff Plan for outpatient follow-up with GI Acute left lower extremity DVT Venous Doppler: Thrombus identified within the left popliteal, posterior tibial, peroneal, and a superficial gastrocnemius vein. This is new from the prior study. S/P IVC filter Appreciate vascular surgery input Not a candidate for anticoagulation H/O recurrent GI bleeding Acute metabolic encephalopathy - resolved Likely secondary to hypoxia DD: Delirium Possible aspiration -CT Head:No acute intracranial findings. No change in appearance of the brain. On Unasyn day #3 Re-orient frequently to minimize delirium No sign of infection - stop Unasyn (05/10) Hypokalemia Replace electrolytes as needed HTN BP relatively low Lisinopril discontinued Proteinuria - 300mg in 24 hrs - obtain Cr/ prot. ratio as outpt and cont. to follow up - discussed w/ nephrology, may need outpt follow up w/ nephro if worsening CAD S/P stent On beta-tao, statin H/O Atrial flutter S/P cardioversion off Coumadin secondary to recurrent GI bleed Continue sotalol Hyperlipidemia on statin DM II on oral medications, resume on DC Last HBA1C: 6.1 last April 2021 Continue Insulin therapy while inpt Total Time Total Time Spent Total Time Spent (In Minutes): 45 Discharge Plan Discharge Items Patient Disposition: Home - Self-Care Reason For Visit: SYMTOMATIC ANEMIA, FLUID RETENTION Discharge Diagnosis: Pulmonary edema, fluid overload Hypoalbuminemia Acute LLE DVT, status post IVC filter C. difficile colitis Acute GI bleed Activity: Per Instructions section Non-emergency contact: Primary Care Provider, Substation Operator Chief and Well Tester Call non-emergency contact if: you have any medication questions and your symptoms worsen Follow-up/Referrals: [facility] [Other] ([facility] will call you with an appointment for follow up. ) [facility] [Other] ([facility] will call you with an appointment for follow up.) Krupa Cornejo MD [Primary Care Provider] - (Date & Time 05/16/2021 11:00 AM Provider Yen Vincent, [facility] ) Diet: Carb Consistent or DM2 and Low Sodium (2gm) Fluids: 2000ml (8 cups) Addtl Attending Provider Instructions: Follow-up with your primary care doctor, on May 16. You will need to follow-up with cardiology and gastroenterology. You will be contacted about the appointments. Take torsemide 20 mg daily and spironolactone 12.5 mg daily as prescribed. These are both water pills. Take Dificid, for next 10 days, to treat C. difficile infection/diarrhea. Do not take budesonide/steroid. Do not take Lasix and lisinopril anymore. Pending Studies at Discharge: No Stand-Alone Forms: [employer], Smoking Cessation Medications and DC Order Prescriptions: New Dificid 200 mg Tablet 200 mg PO BID 10 Days Qty: 20 RF: 0 spironolactone 25 mg Tablet 12.5 mg PO DAILY Qty: 20 RF: 0 potassium chloride 20 mEq Tablet,Er Particles/Crystals 20 meq PO BID Qty: 60 RF: 0 torsemide 10 mg Tablet 20 mg PO QAM Qty: 30 RF: 0 pantoprazole 40 mg Tablet,Delayed Release (Dr/Ec) 40 mg PO DAILY Qty: 30 RF: 0 Continued atorvastatin [Lipitor] 40 mg Tablet 40 mg PO DAILY RF: 0 sotalol 80 mg Tablet 80 mg PO BID RF: 0 multivitamin Tablet 1 tab PO DAILY RF: 0 metformin 1,000 mg Tablet 1,000 mg PO BID RF: 0 zinc 50 mg Tablet 50 mg PO DAILY RF: 0 cholecalciferol (vitamin D3) [Vitamin D3] 1,000 unit Capsule 1,000 unit PO DAILY RF: 0 magnesium chloride [Mag 64] 64 mg Tablet,Delayed Release (Dr/Ec) 64 mg PO BID Qty: 60 RF: 0 albuterol sulfate [Ventolin HFA] 90 mcg/actuation Hfa Aerosol Inhaler 1 inh INHALATION UD RF: 0 Trulicity 1.5 mg/0.5 mL Pen Injector 1.5 mg SUBCUT WK RF: 0 loperamide 2 mg capsule 4 mg PO DIRECTED MDD 8 TABS/24 HOURS PRN (Reason: loose stool) RF: 0 Discontinued lisinopril 10 mg tablet 10 mg PO DAILY RF: 0 budesonide 9 mg tablet,delayed and ext.release 9 mg PO DAILY RF: 0 furosemide 20 mg tablet 10 mg PO BID RF: 0 Discharge Orders: Discharge Order (Routine); Ordered 05/12/21 Ordered By: Se Desai Admission Data Admit Date/Time: 05/03/21 21:54 Attending Provider: Se Desai Admit Provider: Segundo Kong Primary Care Provider: Krupa Cornejo Other Providers: Jake Murray ; Camden López ; Melba Pond ; Myla Levine ; Nan Varela ; Gardenia Navarro ; Jerson Carter ; Gabriel Andre ; Brooklyn Nava ; Shaun Campo ; Anita Recinos ; Mansi Farrell ; Terri Noble ; Sola Tinoco ; Danielle Valenzuela ; Cristino Levine
== END 2021-05-12 18:32 | disposition home or self-care (01) | DRG 291 ==
LOC: ED 11:52 → SUATTDRO 21:54 → EDINP 21:54 → 2S 05-04 11:14 → 1E 05-08 02:51
DX: I25.10 Atherosclerotic heart disease of native coronary artery without angina pectoris; J96.01 Acute respiratory failure with hypoxia; E43 Unspecified severe protein-calorie malnutrition; G93.41 Metabolic encephalopathy; Z79.01 Long term (current) use of anticoagulants; E88.09 Other disorders of plasma-protein metabolism, not elsewhere classified; Z82.49 Family history of ischemic heart disease and other diseases of the circulatory system; I82.402 Acute embolism and thrombosis of unspecified deep veins of left lower extremity; R80.9 Proteinuria, unspecified; R19.7 Diarrhea, unspecified; I11.0 Hypertensive heart disease with heart failure; E78.5 Hyperlipidemia, unspecified; E11.9 Type 2 diabetes mellitus without complications; Z68.37 Body mass index [BMI] 37.0-37.9, adult; I48.92 Unspecified atrial flutter; A04.72 Enterocolitis due to Clostridium difficile, not specified as recurrent; D64.9 Anemia, unspecified; Z87.891 Personal history of nicotine dependence; I50.42 Chronic combined systolic (congestive) and diastolic (congestive) heart failure; E66.9 Obesity, unspecified